=== PATIENT | male | born 1955 | race Caucasian/White ===

== ENCOUNTER 2017-06-29 14:53 | Emergency (ER) | payer OTHER ==
[~2017-06-29] VITALS: Ht 167.6 cm; Wt 75.0 kg
[~2017-06-29 14:53] MED LIST: ALBUAER19; CHLO0.1222 PO; CPR500HP PO; DICY10CA55 PO; DOCU100C31 PO; ERGO1CAP35 PO; MESA1.2T PO; OMEP40CA41 PO; OXGN; TOLT2TAB9 PO
[2017-06-29 14:56] VITALS: BP 133/84; PULSE 74; TEMP 36.6; O2SAT 97; Ht 167.6 cm; Wt 75.0 kg
[2017-06-29] MEDS ORDERED: OXYC1TAB3 PO (15:12)
[2017-06-29] MEDS ORDERED: OXYCODONE IR HOME PACK PO ONE (15:36)
[2017-06-29] MEDS ORDERED: CYAN100048 SQ (15:48)
[2017-06-29] MEDS ORDERED: ANTICRE6 PO (15:48)
[2017-06-29] MEDS ORDERED: IBUP-1451 PO (15:48)
[2017-06-29] MEDS ORDERED: VNTHFA/IN INH (15:48)
[2017-06-29] MEDS ORDERED: GABA-113 PO (15:48)
[2017-06-29] MEDS ORDERED: ERGO500037 PO (15:48)
--- NOTE | 2017-06-29 17:57 | EMERGENCY ROOM VISIT NOTE ---
History Report prepared by Dameon: Micheline Hauser Under the Supervision of: Dr. Sujit Lopes M.D. First contact with patient: 14:59 Chief Complaint: CARDIAC ASSESSMENT Stated Complaint: HEART PROBLEMS History of Present Illness The patient is a 62 year old male who presents to the Emergency Room with complaints of persistent right chest pain starting 2 weeks ago. The patient tripped and fell 2 weeks ago onto his right side. He has had right rib pain since then. He describes the pain as sharp. The pain worsens with deep breaths. He went to urgent care today and had an X-ray which showed a 6th rib fracture on the right side that is not displaced. His lungs were clear. He had an abnormal EKG there and was sent to the ED. He denies any other symptoms. Source of History: patient Onset: 2 weeks ago Position: chest (right) Quality: sharp Timing: other (persistent) Modifying Factors (Worsening): breathing Associated Symptoms: No fevers, No SOB Note: Pt denies any other symptoms. Review of Systems See HPI for pertinent positives & negatives. A total of 10 systems reviewed and were otherwise negative. Past Medical & Surgical Medical Problems: (1) Asthma, mild persistent (2) BPH (benign prostatic hyperplasia) (3) Crohn's disease (4) Neuropathy (5) Overactive bladder (6) SBO (small bowel obstruction) Surgical Problems: (1) History of inguinal hernia repair Family History No pertinent family history Social History Smoking Status: Never Smoker Alcohol Use: occasionally Drug Use: none Marital Status: single Occupation Status: employed Current/Historical Medications Scheduled Calcium Carbonate-Vitamin D W/ (Caltrate 600 Plus), 1 TAB PO BID Chlorhexidine Gluconate (Mouth (Peridex), 15 ML PO QAM Cyanocobalamin (Vitamin B-12), 1,000 MCG SQ MONTHLY Ergocalciferol (Vitamin D 99954 Unit), 50,000 UNIT PO WK Fluticasone Furoate-Vilanterol (Breo Ellipta), 1 PUFF INH QAM Gabapentin (Neurontin), 300 MG PO HS Lifitegrast (Xiidra), 1 DROP OPB QAM Mesalamine (Lialda), 4 TAB PO DAILY Montelukast Sod (Montelukast Sodium), 1 TAB PO HS Nortriptyline (Pamelor), 10 MG PO HS Potassium Gluconate (Potassium Gluconate), 1 TAB PO QAM Ranitidine Hcl (Zantac), 1 TAB PO QAM Tamsulosin Hcl (Flomax), 0.4 MG PO QAM [Antibiotic], Unknown Dose PO BLANK Scheduled PRN Albuterol Hfa (Ventolin Hfa), 2 PUFFS INH Q6H PRN for SOB/Wheezing Dicyclomine Hcl (Bentyl), 10 MG PO UD PRN for ABDOMINAL CRAMPING Ibuprofen Tab (Motrin), 800 MG PO Q8H PRN for Pain Oxycodone Ir (Roxicodone Ir), 5 MG PO Q4H PRN for Pain Allergies Coded Allergies: Codeine (Verified Allergy, Unknown, UNSURE REACTION - HAPPENED A CHILD , 06/04/16) Physical Exam Vital Signs Date Time Temp Pulse Resp B/P (MAP) Pulse Ox O2 Delivery O2 Flow Rate FiO2 06/29/17 14:56 36.6 74 20 133/84 97 Room Air Physical Exam Constitutional: Vital signs reviewed. Eyes: Pupils are equal round reactive to light. Conjunctiva are noninjected. ENT: Pharynx is clear without erythema or exudate. Mucous membranes are moist. Neck supple without meningeal signs. Respiratory: Clear to auscultation bilaterally. Breath sounds are equal bilaterally. Cardiovascular: Regular rate and rhythm. No rubs or gallops. GI: Soft, nondistended and nontender. Bowel sounds are present. Musculoskeletal: No peripheral edema. No lower extremity tenderness. Right rib tenderness. No crepitus. Integumentary: No cyanosis. Neurological: The patient is awake and alert. No focal deficits. Psychiatric: Normal affect. Medical Decision & Procedures Medications Administered Medications (Trade) Dose Ordered Sig/Sendy Route Start Time Stop Time Status Last Admin Dose Admin Oxycodone HCl (Roxicodone Immediate Rel 5MG Home Pack) 1 homepack STK-MED ONCE PO 06/29/17 15:36 06/29/17 15:37 DC 06/29/17 15:36 1 HOMEPACK ECG Indication: chest pain Rate (beats per minute): 81 Rhythm: sinus rhythm Findings: RBBB, no ectopy Comparison ECG Date: 08-Mar-2016 Change: no significant change ED Course 1502: The patient was evaluated in room B9. A complete history and physical exam was performed. I discussed tonight's findings with him. He verbalized agreement of the treatment plan. He was discharged home. Medical Decision This is a 62-year-old male sent here from an urgent care center because of an abnormal EKG. I did perform a limited focused review of portions of the patient 's old chart on the electronic medical record. The patient received Percocet without adverse reaction in 2013. I did evaluate the patient as noted above. He is presenting with sharp left- sided right rib pain after falling. He had an x-ray at the urgent care center which showed a 6 rib fracture. The patient has no other symptoms. Certainly has no symptoms to suggest acute coronary syndrome. EKG was performed at the urgent care center which I did review as described above. It is not completely normal but it is unchanged from his prior EKG when reviewed on the EMR. I did not feel any further evaluation was indicated at this time. The patient was in agreement. He was given a prescription for oxycodone which she has had in the past without allergic reaction. He was discharged with a is incentive spirometer and will follow up with his doctor. [place] Drug Monitoring Program Search Results: patient reviewed within database Drug Monitoring Findings: No matching patients. Medication Reconcilliation Current Medication List: was personally reviewed by me Blood Pressure Screening Patient's blood pressure: Elevated blood pressure Blood pressure disposition: Referred to PCP Impression Primary Impression: Right rib fracture Scribe Attestation The scribe's documentation has been prepared under my direct and personally reviewed by me in its entirety. I confirm that the note above accurately reflects all work, treatment, procedures, and medical decision making performed by me. Departure Information Dispostion Home / Self-Care Prescriptions Oxycodone Ir (Roxicodone Ir) 5 Mg Tab 5 MG PO Q4H Y for Pain, #20 TAB Prov: Sujit Lopes M.D. 06/29/17 Referrals No Doctor, Assigned (PCP) Forms IMPORTANT VISIT INFORMATION Patient Instructions Papito Andrew, My [facility] Additional Instructions You have been examined and treated today on an emergency basis only. This is not a substitute for, or an effort to provide, complete comprehensive medical care. It is impossible to recognize and treat all injuries or illnesses in a single emergency department visit. It is therefore important that you follow up closely with your physician. Call as soon as possible for an appointment. Return for worsening symptoms or if you develop fever, vomiting, abdominal pain , sudden difficulty breathing or any other concerning symptoms. Problem Qualifiers Primary Impression: Right rib fracture Encounter type: initial encounter Rib fracture type: single rib Fracture type: closed Qualified Codes: S22.31XA - Fracture of one rib, right side, initial encounter for closed fracture
[2017-06-29] MEDS ORDERED: NORT10CA2 PO (18:43)
[2017-06-29] MEDS ORDERED: POTA1TAB PO (18:43)
[2017-06-29] MEDS ORDERED: TAMS0.4C38 PO (20:24)
[2017-06-29] MEDS ORDERED: CALCTAB7 PO (20:26)
[2017-06-29] MEDS ORDERED: LIFI5DRO OPB (21:54)
[2017-06-29] MEDS ORDERED: RANI300T PO (21:54)
[2017-06-29] MEDS ORDERED: FLUT1INH INH (21:54)
[2017-06-29] MEDS ORDERED: SNG10 PO (21:54)
== END 2017-06-29 15:46 | disposition home or self-care (01) ==
LOC: C.EDB 14:54
DX: S22.31XA Fracture of one rib, right side, initial encounter for closed fracture (principal); W01.0XXA Fall on same level from slipping, tripping and stumbling without subsequent striking against object, initial encounter; J45.909 Unspecified asthma, uncomplicated; N40.0 Benign prostatic hyperplasia without lower urinary tract symptoms; K50.90 Crohn's disease, unspecified, without complications; G62.9 Polyneuropathy, unspecified; N32.81 Overactive bladder; I45.10 Unspecified right bundle-branch block

== ENCOUNTER 2017-10-01 18:18 | Emergency (ER) | payer OTHER ==
[~2017-10-01] VITALS: Ht 167.6 cm; Wt 82.4 kg
[~2017-10-01 18:18] MED LIST changes: -ALBUAER19; +ANTICRE6 PO; +CALCTAB7 PO; -CPR500HP PO; +CYAN100048 SQ; -DOCU100C31 PO; -ERGO1CAP35 PO; +ERGO500037 PO; +FLUT1INH INH; +GABA-113 PO; +IBUP-1451 PO; +LIFI5DRO OPB; +NORT10CA2 PO; -OMEP40CA41 PO; -OXGN; +OXYC1TAB3 PO; +POTA1TAB PO; +RANI300T PO; +SNG10 PO; +TAMS0.4C38 PO; -TOLT2TAB9 PO; +VNTHFA/IN INH
--- NOTE | 2017-10-01 18:29 | DIAGNOSTIC IMAGING REPORT ---
HEAD WITHOUT CONTRAST (CT) CLINICAL HISTORY: 62 years-old Male with AMS, brain tumor by report. Acute altered mental status TECHNIQUE: Multiple axial CT images of the head were obtained without contrast. A dose lowering technique was utilized adhering to the principles of ALARA. CT DOSE: 614.27 mGy.cm COMPARISON: None. FINDINGS: No acute intracranial hemorrhage, midline shift, intracranial mass, hydrocephalus, territorial ischemia or abnormal extra-axial collection. The calvarium is intact. The right maxillary sinus is nearly completely opacified. Hypoplasia of the right frontal sinus. Mild polypoid mucosal thickening of the left maxillary sinus. Right yaquelin bullosa. Mild ethmoid sinus disease. Soft tissues and orbits are unremarkable. IMPRESSION: 1. No acute intracranial abnormality. 2. Paranasal sinus disease as above. The above report was generated using voice recognition software. It may contain grammatical, syntax or spelling errors. Electronically signed by: José Miguel Carlisle M.D. 10/01/2017 6:27 PM Dictated Date/Time: 10/01/2017 6:25 PM
[2017-10-01 18:34] VITALS: TEMP 36.7; Ht 167.6 cm; Wt 82.4 kg
--- NOTE | 2017-10-01 18:37 | EMERGENCY ROOM VISIT NOTE ---
History Report prepared by Dameon: Sen Mccollum Under the Supervision of: Dr. Lorena Martinez M.D. First contact with patient: 18:14 Stated Complaint: NEURO SX History of Present Illness The patient is a 62 year old male who presents to the Emergency Room with complaints of constant weakness beginning a week ago. Patient was apparently at work today when his symptoms suddenly worsened. The patient states he was evaluated by Dr. Muñoz today and had a bilateral lumbar facet joint radiofrequency ablation from L5-S1 performed. Patient's coworker relates that he was recently diagnosed with a "brain tumor." He denies any recent fevers or vomiting. HPI is limited secondary to the patient's poor cooperation. Source of History: patient History Limited By: poor cooperation Review of Systems ROS is limited secondary to the patient's poor cooperation. Past Medical & Surgical Medical Problems: (1) Asthma, mild persistent (2) BPH (benign prostatic hyperplasia) (3) Crohn's disease (4) Neuropathy (5) Overactive bladder (6) SBO (small bowel obstruction) Surgical Problems: (1) History of inguinal hernia repair Family History No pertinent family history Social History Smoking Status: Never Smoker Alcohol Use: occasionally Drug Use: none Marital Status: single Occupation Status: employed Current/Historical Medications Scheduled Amoxicillin & Pot Clavulanate (Augmentin 500MG), 1 TAB PO BID Calcium Carbonate-Vitamin D W/ (Caltrate 600 Plus), 1 TAB PO BID Chlorhexidine Gluconate (Mouth (Peridex), 15 ML PO QID Docusate Sodium (Docusate Sodium), 100 MG PO BID Ergocalciferol (Vitamin D 16431 Unit), 50,000 UNIT PO WK Fluticasone Furoate-Vilanterol (Breo Ellipta), 1 PUFF INH QAM Gabapentin (Neurontin), 300 MG PO BID Lifitegrast (Xiidra), 1 DROP OPB QAM Mesalamine (Lialda), 4 TAB PO DAILY Montelukast Sod (Montelukast Sodium), 10 MG PO HS Nortriptyline (Pamelor), 20 MG PO HS Omeprazole (Prilosec), 40 MG PO BID Potassium (Potassium), 99 MG PO DAILY Ranitidine Hcl (Zantac), 300 MG PO HS Tamsulosin Hcl (Flomax), 0.4 MG PO QAM Scheduled PRN Albuterol Hfa (Ventolin Hfa), 2 PUFFS INH Q6H PRN for SOB/Wheezing Dicyclomine Hcl (Bentyl), 10 MG PO TID PRN for ABDOMINAL CRAMPING Ibuprofen Tab (Motrin), 800 MG PO Q8H PRN for Pain Meclizine Hcl (Meclizine Hcl), 25 MG PO TID PRN for Dizziness or Vertigo Allergies Coded Allergies: Codeine (Verified Allergy, Unknown, UNSURE REACTION - HAPPENED A CHILD , 06/04/16) Physical Exam Vital Signs Date Time Temp Pulse Resp B/P (MAP) Pulse Ox O2 Delivery O2 Flow Rate FiO2 10/01/17 23:47 55 16 131/87 96 10/01/17 22:47 51 16 127/77 94 Room Air 10/01/17 20:30 54 22 142/88 96 Room Air 10/01/17 18:34 36.7 61 18 161/109 95 Room Air 10/01/17 18:34 60 Physical Exam Vital signs reviewed. General: Well-appearing 62 year old male, in no significant distress. Patient seemed to be voluntarily weak diffusely. HEENT: No scleral icterus, PERRLA, neck supple. Atraumatic. States he is unable to open his eyes. Cardiovascular: Regular rate and rhythm, no extra sounds. Pulmonary: Clear to auscultation bilaterally, normal work of breathing. Abdomen: Soft, nontender, nondistended, positive bowel sounds. Musculoskeletal: Atraumatic, no peripheral edema. Neurologic: No focal neurological deficit. Diffuse weakness, seems to be voluntary in nature. Limited cooperation. No unilateral focus to exam. Equal strength in all four extremities. Cranial nerves 2 through 12 intact. Skin: Warm, dry, no rash Medical Decision & Procedures ER Provider Diagnostic Interpretation: Review of EMR: Patient had an MRI of the brain on 09/17 results are as followed: IMPRESSION: 1. No imaging findings to suggest an acute intracranial abnormality on pre and post-contrast MR imaging of the brain. 2. Prominent pituitary gland measures 12.5 mm (SI), which is beyond the upper limits of normal. Recommend dedicated MRI of the sells without and with contrast , and appropriate endocrinologic aboratory workup. 3. Near complete opacification of the right maxillary sinus, with the presence of likely fluid/frothy secretions as well as mucosal thickening. Thickening of at lease a portion of the serrato of the right maxillary. The imaging findings are concerning for acute on chronic sinusitis. Clinical correlation is recommended. 4. Global cerebral volume less and mild to moderate burden of nonspecific cerebral white matter signal abnormality which most commonly reflects sequelae of chronic small vessel ischemic disease. Radiology results as stated below per my review and radiologist interpretation: HEAD WITHOUT CONTRAST (CT) CLINICAL HISTORY: 62 years-old Male with AMS, brain tumor by report. Acute altered mental status TECHNIQUE: Multiple axial CT images of the head were obtained without contrast. A dose lowering technique was utilized adhering to the principles of ALARA. CT DOSE: 614.27 mGy.cm COMPARISON: None. FINDINGS: No acute intracranial hemorrhage, midline shift, intracranial mass, hydrocephalus, territorial ischemia or abnormal extra-axial collection. The calvarium is intact. The right maxillary sinus is nearly completely opacified. Hypoplasia of the right frontal sinus. Mild polypoid mucosal thickening of the left maxillary sinus. Right yaquelin bullosa. Mild ethmoid sinus disease. Soft tissues and orbits are unremarkable. IMPRESSION: 1. No acute intracranial abnormality. 2. Paranasal sinus disease as above. The above report was generated using voice recognition software. It may contain grammatical, syntax or spelling errors. Electronically signed by: José Miguel Carlisle M.D. 10/01/2017 6:27 PM Dictated Date/Time: 10/01/2017 6:25 PM CHEST ONE VIEW PORTABLE HISTORY: 62 years-old Male AMS acute altered mental status COMPARISON: Chest radiograph 03/08/2016 TECHNIQUE: Portable AP view of the chest FINDINGS: Patient is rotated to the left. Cardiac silhouette is mildly enlarged. Subsegmental bibasilar opacities suggest atelectasis. No pneumothorax, pleural effusion or overt pulmonary edema. Bones of the chest appear grossly intact. IMPRESSION: Subsegmental bibasilar atelectasis without acute process. The above report was generated using voice recognition software. It may contain grammatical, syntax or spelling errors. Electronically signed by: José Miguel Carlisle M.D. 10/01/2017 6:47 PM Dictated Date/Time: 10/01/2017 6:46 PM MRI OF THE BRAIN WITHOUT AND WITH IV CONTRAST SEIZURE PROTOCOL CLINICAL HISTORY: Stroke symptoms. Possible seizure. Dizziness, speech difficulties. Visual disturbances. COMPARISON STUDY: Head CT October 01, 2017 TECHNIQUE: Utilizing a 1.5 Mira magnet and dedicated coil, multiplanar, multiecho imaging of the brain was performed pre and postcontrast administration. IV administration of 8 mL of Gadavist contrast was uneventful. Thin cut coronal T2 imaging was performed according to seizure protocol. FINDINGS: There are no foci of restricted diffusion. No acute intracranial hemorrhage, midline shift or mass effect is present. Ventricular system is normal. The basilar cisterns are patent. There are no extra-axial collections. Flow-voids for the major intracranial vessels are present. The pituitary gland is enlarged, measuring 1.2 cm in craniocaudal dimension. There is mass effect upon the chiasm. The pituitary is suboptimally assessed on this nondedicated exam. No additional intracranial masses are present. Terminal signal is maintained. Right maxillary sinus is nearly completely opacified. There is mild polypoid mucosal thickening of the left maxillary sinus. Orbits are unremarkable. There is no MRI evidence for mesial temporal sclerosis. White matter T2 hyperintense foci suggest mild small vessel disease. IMPRESSION: 1. No acute intracranial findings. 2. Enlarged pituitary, measuring 1.2 cm in craniocaudal dimension. Mild mass effect upon the chiasm. The pituitary is suboptimally assessed on this nondedicated exam. The findings could be correlated with laboratory assays as well as dedicated pituitary MRI as indicated. 3. Mild small vessel disease. 4. Paranasal sinus disease, as described above. Electronically signed by: Bryan Camargo M.D. 10/01/2017 11:00 PM Dictated Date/Time: 10/01/2017 10:49 PM Laboratory Results 10/01/17 18:10 Red Blood Count 5.30, Mean Corpuscular Volume 87.0, Mean Corpuscular Hemoglobin 29.2, Mean Corpuscular Hemoglobin Concent 33.6, Mean Platelet Volume 10.9, Neutrophils (%) (Auto) 54.7, Lymphocytes (%) (Auto) 36.5, Monocytes (%) (Auto) 6.5, Eosinophils (%) (Auto) 1.7, Basophils (%) (Auto) 0.3, Neutrophils # (Auto) 3.20, Lymphocytes # (Auto) 2.14, Monocytes # (Auto) 0.38, Eosinophils # (Auto) 0.10, Basophils # (Auto) 0.02 10/01/17 18:10 Test 10/01/17 18:10 10/01/17 18:31 10/01/17 18:33 10/01/17 20:12 White Blood Count 5.86 K/uL (4.8-10.8) Red Blood Count 5.30 M/uL (4.7-6.1) Hemoglobin 15.5 g/dL (14.0-18.0) Hematocrit 46.1 % (42-52) Mean Corpuscular Volume 87.0 fL (80-100) Mean Corpuscular Hemoglobin 29.2 pg (25-34) Mean Corpuscular Hemoglobin Concent 33.6 g/dl (32-36) Platelet Count 240 K/uL (130-400) Mean Platelet Volume 10.9 fL (7.4-10.4) Neutrophils (%) (Auto) 54.7 % Lymphocytes (%) (Auto) 36.5 % Monocytes (%) (Auto) 6.5 % Eosinophils (%) (Auto) 1.7 % Basophils (%) (Auto) 0.3 % Neutrophils # (Auto) 3.20 K/uL (1.4-6.5) Lymphocytes # (Auto) 2.14 K/uL (1.2-3.4) Monocytes # (Auto) 0.38 K/uL (0.11-0.59) Eosinophils # (Auto) 0.10 K/uL (0-0.5) Basophils # (Auto) 0.02 K/uL (0-0.2) RDW Standard Deviation 41.1 fL (36.4-46.3) RDW Coefficient of Variation 12.9 % (11.5-14.5) Immature Granulocyte % (Auto) 0.3 % Immature Granulocyte # (Auto) 0.02 K/uL (0.00-0.02) Prothrombin Time 10.0 SECONDS (9.0-12.0) Prothromb Time International Ratio 1.0 (0.9-1.1) Activated Partial Thromboplast Time 28.3 SECONDS (21.0-31.0) Partial Thromboplastin Ratio 1.1 Anion Gap 6.0 mmol/L (3-11) Est Creatinine Clear Calc Drug Dose 74.4 ml/min Estimated GFR () 88.4 Estimated GFR (Non- 76.2 BUN/Creatinine Ratio 13.9 (10-20) Calcium Level 8.9 mg/dl (8.5-10.1) Magnesium Level 2.2 mg/dl (1.8-2.4) Total Bilirubin 0.2 mg/dl (0.2-1) Direct Bilirubin < 0.1 mg/dl (0-0.2) Aspartate Amino Transf (AST/SGOT) 20 U/L (15-37) Alanine Aminotransferase (ALT/SGPT) 29 U/L (12-78) Alkaline Phosphatase 111 U/L (45-117) Total Protein 7.7 gm/dl (6.4-8.2) Albumin 3.9 gm/dl (3.4-5.0) Bedside Glucose 85 mg/dl (70-99) Urine Opiates Screen NEG (NEG) Urine Methadone, Qualitative NEG (NEG) Urine Barbiturates NEG (NEG) Urine Phencyclidine (PCP) Level NEG (NEG) Ur Amphetamine/Methamphetamine NEG (NEG) MDMA (Ecstasy) Screen NEG (NEG) Urine Benzodiazepines Screen NEG (NEG) Urine Cocaine Metabolite NEG (NEG) Urine Marijuana (THC) NEG (NEG) Urine Color YELLOW Urine Appearance CLEAR (CLEAR) Urine pH 5.0 (4.5-7.5) Urine Specific [place] 1.019 (1.000-1.030) Urine Protein NEG (NEG) Urine Glucose (UA) NEG (NEG) Urine Ketones NEG (NEG) Urine Occult Blood NEG (NEG) Urine Nitrite NEG (NEG) Urine Bilirubin NEG (NEG) Urine Urobilinogen NEG (NEG) Urine Leukocyte Esterase NEG (NEG) Laboratory results per my review. ECG Per My Interpretation Indication: weakness Rate (beats per minute): 59 Rhythm: sinus bradycardia Findings: RBBB, no acute ischemic change, left axis deviation, no ectopy ED Course 1815: Past medical records reviewed. The patient was evaluated in room B01. A complete history and physical examination was performed. 1850: The patient was transported from B01 to B10 because he was stable. 1941: I reevaluated the patient. He is having an episode where his forehead is twitching, he is not able to open his eyes, and has spasms of the limbs. He is immediately responsive to the nurses. 2302: I reevaluated the patient. I informed him off all exam results to this point. I informed him we are still waiting for his MRI report. He states he needs to urinate, but he is too weak to get out of bed. 2333: Upon reevaluation, the patient appeared to have improvement of his symptoms. I discussed findings with him. He verbalized agreement of the treatment plan. The patient was discharged home. Medical Decision Differential diagnosis: Etiologies such as metabolic, infection, hypo/hyperglycemia, electrolyte abnormalities, cardiac sources, intracerebral event, toxicologic, neurologic, as well as others were entertained. This patient was evaluated and appeared to be in no significant distress. CT scan of the head was performed upon arrival to the emergency department and is normal. There is evidence of sinusitis. IV access was obtained. EKG is fairly unrevealing. Laboratory work reveals no significant abnormalities. U tox is negative. The patient's symptoms do not seem to be consistent with encephalopathy or an acute CVA. Patient does not seem to be seizing. He does seem to be weak at will. His boss has been in his room, at his bedside. The patient requested a Stoner catheter as he did not feel that he could urinate or ambulate to the bathroom. A straight cath was performed in order to obtain a bit above urine. Patient requested a Stoner catheter be placed however after the MRI brain combo was negative for acute intracranial findings, the patient was able to ambulate to the restroom with assistance. The patient did have a recent MRI of the brain as an outpatient and was found to have an enlarged pituitary gland. A dedicated MRI of the pituitary gland is scheduled within the next week. I do not find any medical cause for the patient's symptoms. I suspect there was significant anxiety surrounding the enlarged pituitary finding as an outpatient. I do not feel the patient warrants inpatient management at this time as this is likely behavioral. He will be discharged to the care of his family and return to the ER for worsening of symptoms or any medical concerns. Patient was advised not to drive until he is cleared by his PCP or neurologist. Medication Reconcilliation Current Medication List: was personally reviewed by me Blood Pressure Screening Patient's blood pressure: Normal blood pressure Blood pressure disposition: Did not require urgent referral Impression Primary Impression: Altered mental state Scribe Attestation The scribe's documentation has been prepared under my direction and personally reviewed by me in its entirety. I confirm that the note above accurately reflects all work, treatment, procedures, and medical decision making performed by me. Departure Information Dispostion Home / Self-Care Referrals Madan Ratliff M.D.(TIM) (PCP) Forms HOME CARE DOCUMENTATION FORM, IMPORTANT VISIT INFORMATION, WORK / SCHOOL INSTRUCTIONS Patient Instructions My [facility] Additional Instructions Diagnosis: Altered mental state Drink plenty of clear fluids. Minimize any medications that may cause sedation. Avoid any alcohol, illicit substances. Do not drive until you are cleared by neurology or your primary care physician. Return to the emergency department for worsening of symptoms or any medical concerns per
[2017-10-01 18:43] LABS: BASO % 0.3 %; BASO ABS # 0.02 K/uL (0-0.2); EOS % 1.7 %; HEMATOCRIT 46.1 % (42-52); HEMOGLOBIN 15.5 g/dL (14.0-18.0); IG# 0.02 K/uL (0.00-0.02); LYMPH % 36.5 %; LYMPH ABS # 2.14 K/uL (1.2-3.4); MEAN CORPUSCULAR HEMOGLOBIN 29.2 pg (25-34); MEAN CORPUSCULAR HGB CONC 33.6 g/dl (32-36); MEAN PLATELET VOLUME 10.9 fL (7.4-10.4); MONO % 6.5 %; MONO ABS # 0.38 K/uL (0.11-0.59); NEUT % 54.7 %; PLATELET COUNT 240 K/uL (130-400); RED CELL DISTRIBUTION WIDTH CV 12.9 % (11.5-14.5); RED CELL DISTRIBUTION WIDTH SD 41.1 fL (36.4-46.3); WHITE BLOOD COUNT 5.86 K/uL (4.8-10.8)
--- NOTE | 2017-10-01 18:49 | DIAGNOSTIC IMAGING REPORT ---
CHEST ONE VIEW PORTABLE HISTORY: 62 years-old Male AMS acute altered mental status COMPARISON: Chest radiograph 03/08/2016 TECHNIQUE: Portable AP view of the chest FINDINGS: Patient is rotated to the left. Cardiac silhouette is mildly enlarged. Subsegmental bibasilar opacities suggest atelectasis. No pneumothorax, pleural effusion or overt pulmonary edema. Bones of the chest appear grossly intact. IMPRESSION: Subsegmental bibasilar atelectasis without acute process. The above report was generated using voice recognition software. It may contain grammatical, syntax or spelling errors. Electronically signed by: José Miguel Carlisle M.D. 10/01/2017 6:47 PM Dictated Date/Time: 10/01/2017 6:46 PM
[2017-10-01 18:56] LABS: PTT PATIENT 28.3 SECONDS (21.0-31.0)
[2017-10-01 19:00] LABS: ALBUMIN 3.9 gm/dl (3.4-5.0); ALT/SGPT 29 U/L (12-78); AST/SGOT 20 U/L (15-37); BLOOD UREA NITROGEN 15 mg/dl (7-18); CALCIUM 8.9 mg/dl (8.5-10.1); CARBON DIOXIDE 29 mmol/L (21-32); CREATININE 1.05 mg/dl (0.60-1.40); GLUCOSE 89 mg/dl (70-99); POTASSIUM 3.5 mmol/L (3.5-5.1); SODIUM 138 mmol/L (136-145)
[2017-10-01 19:03] LABS: ALKALINE PHOSPHATASE 111 U/L (45-117); TOTAL PROTEIN 7.7 gm/dl (6.4-8.2)
[2017-10-01] MEDS ORDERED: DOCU100C31 PO (20:54)
[2017-10-01] MEDS ORDERED: NORT10CA2 PO (20:59)
[2017-10-01] MEDS ORDERED: MECL1TAB42 PO (21:01)
[2017-10-01] MEDS ORDERED: OMEP40CA41 PO (21:03)
[2017-10-01] MEDS ORDERED: POTA99TA PO (21:05)
[2017-10-01] MEDS ORDERED: AMOX500T PO (21:07)
[2017-10-01] MEDS ORDERED: GADAVIST IV PRN (22:45)
--- NOTE | 2017-10-01 23:01 | DIAGNOSTIC IMAGING REPORT ---
MRI OF THE BRAIN WITHOUT AND WITH IV CONTRAST SEIZURE PROTOCOL CLINICAL HISTORY: Stroke symptoms. Possible seizure. Dizziness, speech difficulties. Visual disturbances. COMPARISON STUDY: Head CT October 01, 2017 TECHNIQUE: Utilizing a 1.5 Mira magnet and dedicated coil, multiplanar, multiecho imaging of the brain was performed pre and postcontrast administration. IV administration of 8 mL of Gadavist contrast was uneventful. Thin cut coronal T2 imaging was performed according to seizure protocol. FINDINGS: There are no foci of restricted diffusion. No acute intracranial hemorrhage, midline shift or mass effect is present. Ventricular system is normal. The basilar cisterns are patent. There are no extra-axial collections. Flow-voids for the major intracranial vessels are present. The pituitary gland is enlarged, measuring 1.2 cm in craniocaudal dimension. There is mass effect upon the chiasm. The pituitary is suboptimally assessed on this nondedicated exam. No additional intracranial masses are present. Terminal signal is maintained. Right maxillary sinus is nearly completely opacified. There is mild polypoid mucosal thickening of the left maxillary sinus. Orbits are unremarkable. There is no MRI evidence for mesial temporal sclerosis. White matter T2 hyperintense foci suggest mild small vessel disease. IMPRESSION: 1. No acute intracranial findings. 2. Enlarged pituitary, measuring 1.2 cm in craniocaudal dimension. Mild mass effect upon the chiasm. The pituitary is suboptimally assessed on this nondedicated exam. The findings could be correlated with laboratory assays as well as dedicated pituitary MRI as indicated. 3. Mild small vessel disease. 4. Paranasal sinus disease, as described above. Electronically signed by: Bryan Camargo M.D. 10/01/2017 11:00 PM Dictated Date/Time: 10/01/2017 10:49 PM
[2017-10-01 23:47] VITALS: BP 131/87; PULSE 55; O2SAT 96
== END 2017-10-01 23:47 | disposition home or self-care (01) ==
LOC: C.EDB 18:18 → EDBD 18:18 → C.EDB 23:47
DX: R41.82 Altered mental status, unspecified (principal); J45.909 Unspecified asthma, uncomplicated; K50.90 Crohn's disease, unspecified, without complications; G62.9 Polyneuropathy, unspecified; Z98.890 Other specified postprocedural states; Z79.899 Other long term (current) drug therapy; Z79.2 Long term (current) use of antibiotics; Z88.6 Allergy status to analgesic agent

== ENCOUNTER 2018-12-08 09:05 | Observation (INO) ==
--- NOTE | 2018-12-03 10:53 | Anesthesiology Consultation ---
Date of Service December 03, 2018 Assessment & Plan (1) Encounter for pre-operative examination: Chart Review Chart Review: Acceptable Risk for Surgery and Patient NOT seen in Pre Admission Testing History Surgery Operation Date: 12/08/18 10:25 Proposed Procedures p Laparoscopic Appendectomy Possible Open - Veronica Abraham MD Height/Weight Height: 5 ft 6 in Weight: 80.8 kg Allergies Allergy/AdvReac Type Severity Reaction Status Date / Time codeine Allergy Unknown UNSURE Verified 06/04/16 11:54 REACTION - HAPPENED A CHILD Medications Home Medications Medication Instructions Recorded Confirmed Last Taken albuterol sulfate 2 puff INHALATION DAILY PRN 03/29/18 03/29/18 Unknown [id number] 1 tab PO DAILY 03/29/18 03/29/18 Unknown chlorhexidine gluconate 15 ml TOPICAL TID 03/29/18 03/29/18 Unknown cyclosporine [Restasis] 1 drp OPHTHALMIC (EYE) Q12H 03/29/18 03/29/18 Unknown cyclosporine [Restasis] 1 drp OPHTHALMIC (EYE) Q12H 03/29/18 03/29/18 Unknown ergocalciferol (vitamin D2) 50,000 unit PO DAILY 03/29/18 03/29/18 Unknown [Vitamin D2] fluticasone furoate-vilanterol 1 inh INHALATION DAILY 03/29/18 03/29/18 Unknown [Breo Ellipta] gabapentin 300 mg PO HS 03/29/18 03/29/18 Unknown ibuprofen 200 mg PO QID PRN 03/29/18 03/29/18 Unknown mesalamine 1.5 g PO QAM 03/29/18 03/29/18 Unknown metoprolol succinate 25 mg PO DAILY 03/29/18 03/29/18 Unknown montelukast [Singulair] 10 mg PO PM 03/29/18 03/29/18 Unknown omeprazole 40 mg PO DAILY 03/29/18 03/29/18 Unknown potassium 95 mg PO DAILY 03/29/18 03/29/18 Unknown ranitidine HCl 300 mg PO DAILY 03/29/18 03/29/18 Unknown tamsulosin 0.4 mg PO DAILY 03/29/18 03/29/18 Unknown tolterodine 2 mg PO BID 03/29/18 03/29/18 Unknown Past Medical History Medical History Sleep apnea Noncompliant with CPAP Cardiac pacemaker in situ Medtronic, last check 10/22/18 SBO (small bowel obstruction) (Resolved) Asthma, mild persistent (Chronic) Overactive bladder (Chronic) BPH (benign prostatic hyperplasia) (Chronic) Neuropathy (Chronic) Crohn's disease (Chronic) Tachy-dell syndrome s/p PPM Past Surgical History Surgical History H/O esophagogastroduodenoscopy H/O endoscopic sinus surgery H/O colonoscopy 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 History of inguinal hernia repair (Resolved) Social History Smoking Status: Never smoker Testing Laboratory Results 12/02/18 WBC: 5.79 H/H: 14.1/42.4 PLATELETS: 268 SODIUM: 142 POTASSIUM: 4.0 CHLORIDE: 101 CO2: 27 BUN: 15 CREATININE: 1.0 GLUCOSE: 89 Electrocardiogram Date: 01/04/18 Findings: + NSR @ (61) Possible left atrial enlargement. Right bundle branch block. Left ventricular hypertrophy. Lateral infarct, age undetermined. Compared with EKG of 10/01/2017, lateral infarct is now present. Chest X-Ray Date: 04/08/18 Findings: + NAD Echocardiogram Date: 12/02/17 EF: 55-59% Left atrium is mildly enlarged. Grade 2 diastolic dysfunction. Borderline posterior mitral leaflet prolapse. Mild mitral regurgitation and tricuspid regurgitation are present. Aortic root is borderline enlarged. Stress Test Date: 01/08/18 Type: nuclear Resting EF: 75% Gated SPECT imaging reveals normal myocardial thickening and wall motion. Lexiscan nuclear cardiac stress test negative for ischemia. Other Testing Pacemaker check 10/22/18 Medtronic Implant date: 01/14/2018 Pacemaker mode: AAIR<=> DDDR Pacing burden: 89.9% atrial, 0% RV Summary: Normal dual-chamber pacemaker function.
[~2018-12-08 09:05] MED LIST changes: -ANTICRE6 PO; -CALCTAB7 PO; -CHLO0.1222 PO; -CYAN100048 SQ; -DICY10CA55 PO; -ERGO500037 PO; -FLUT1INH INH; -GABA-113 PO; -IBUP-1451 PO; -LIFI5DRO OPB; +LR 15ML/HR IV SCH; -MESA1.2T PO; +MIDAZOLAM HCL 1 MG/ML 2ML VIAL ONE; -NORT10CA2 PO; -OXYC1TAB3 PO; -POTA1TAB PO; +PROPOFOL IV EMULSION 10 MG/ML 20 ML VIAL IV ONE; -RANI300T PO; +ROCURONIUM BROMIDE 10 MG/ML 5 ML VIAL ONE; -SNG10 PO; -TAMS0.4C38 PO; -VNTHFA/IN INH; +cefOXitin 2,000 MG in DEXTROSE 5% 50 ML IV SCH; +fentaNYL citrate 100 MCG/2 ML VIAL ONE
[2018-12-08] MEDS ORDERED: cefOXitin 2,000 MG/60 ML BAG IV STA (09:40)
--- NOTE | 2018-12-08 09:40 | History & Physical Bridge Note ---
Date of Service December 08, 2018 History & Physical Bridge Note I have examined the patient, reviewed the History & Physical and in the interval since the performance of the History & Physical I have noted the following changes of clinical significance: no changes noted
[2018-12-08] MEDS ORDERED: BUPIVACAINE 0.5 % 5 MG/1 ML MPF 30ML VIAL ONE (09:51)
[2018-12-08] MEDS ORDERED: BACITRACIN OINT 15 GM TUBE ONE (09:51)
[2018-12-08] MEDS ORDERED: LIDOCAINE HCL 1% 20 ML VIAL ONE (09:51)
[2018-12-08] MEDS ORDERED: ONDANSETRON INJ 2 MG/ML 2 ML VIAL ONE (10:44)
[2018-12-08] MEDS ORDERED: DEXAMETHASONE SOD INJ 4 MG/ML VIAL ONE (10:44)
[2018-12-08] MEDS ORDERED: fentaNYL citrate 100 MCG/2 ML VIAL IV PRN (10:54)
[2018-12-08] MEDS ORDERED: ONDANSETRON INJ 2 MG/ML 2 ML VIAL IV PRN ×2 (10:54→11:24)
[2018-12-08] MEDS ORDERED: NEOSTIGMINE METHYLSULFATE 5 MG/5 ML SYR ONE (10:54)
[2018-12-08] MEDS ORDERED: ATROPINE SULFATE 0.1 MG/ML 10ML SYR IV PRN (10:54)
[2018-12-08] MEDS ORDERED: ePHEDrine sulfate 50 MG/ML AMP IV PRN (10:54)
[2018-12-08] MEDS ORDERED: GLYCOPYRROLATE 0.2 MG/ML VIAL ONE (10:55)
[2018-12-08] MEDS ORDERED: fentaNYL citrate 100 MCG/2 ML VIAL ONE (11:01)
--- NOTE | 2018-12-08 11:14 | Post Operative Brief Note ---
Immediate Post Op Note v1 Date of Surgery December 08, 2018 Pre & Post Diagnosis Operation Date: 12/08/18 10:45 Pre-Op Diagnosis: chronic Appendicitis Post-Op Diagnosis: chronic Appendicitis Procedure Operation Date: 12/08/18 10:45 Actual Procedures p Laparoscopic Appendectomy(Not Applicable) - Veronica Abraham MD Surgeon Veronica Abraham MD American Board Certified Orthotist ELO Estrada Estimated Blood Loss 10 Findings Consistent with Post-Op Diagnosis chronic appendicitis Fluids 600ml Specimens appendix Drains Stoner Catheter Anesthesia Type General Complications none Disposition Accompanied Patient To Recovery: Yes Disposition: Recovery Room Overlapping Procedure I was immediately available: during the entire case.
--- NOTE | 2018-12-08 12:11 | Anesthesiology Progress Note ---
Date of Service December 08, 2018 Anesthesia Post Procedure Vital Signs Vital Signs: Temp Pulse Pulse Resp BP Pulse Ox 12/08/18 12:05 36.9 C 60 14 121/82 95 12/08/18 11:55 60 16 132/86 98 12/08/18 11:45 60 16 129/92 98 12/08/18 11:35 36.7 C 62 16 131/88 99 12/08/18 09:49 36.9 C 62 22 114/71 96 Transfer of Care Handoff Completed per policy Notes Mental Status: alert / awake / arousable and participated in evaluation Patient Amnestic to Procedure: Yes Nausea / Vomiting: adequately controlled Pain: adequately controlled Airway Patency, RR, SpO2: stable & adequate BP & HR: stable & adequate Hydration State: stable & adequate Anesthetic Complications: no major complications apparent and Pt Satisfied with anesthetic care
[2018-12-08] MEDS ORDERED: MoRPHine SULFATE 2 MG/ML CARP IV PRN ×2 (12:34)
[2018-12-08] MEDS ORDERED: ACETAMINOPHEN 325 MG TAB PO PRN (12:34)
[2018-12-08] MEDS ORDERED: MoRPHine SULFATE 4 MG/ML 1 ML CARP\\VIAL IV PRN (12:34)
[2018-12-08] MEDS ORDERED: OXYCODONE/ACETAMINOPHEN 5mg/325mg TAB PO PRN (12:34)
[2018-12-08] MEDS ORDERED: ALBUTEROL HFA 8 GM INHALER INH PRN (12:34)
--- NOTE | 2018-12-08 12:39 | Operative Report ---
DATE OF OPERATION: 12/08/2018 PREOPERATIVE DIAGNOSIS: Chronic appendicitis. POSTOPERATIVE DIAGNOSIS: Chronic appendicitis. OPERATIVE PROCEDURE: Laparoscopic appendectomy. SURGEON: Veronica Abraham MD. ANESTHESIA: General. ESTIMATED BLOOD LOSS: About 10 mL. FINDINGS: Chronic appendicitis. COMPLICATIONS: None. INDICATIONS FOR THE PROCEDURE: This is a 63-year-old gentleman who presented with chronic appendicitis. The patient is required to do laparoscopic appendectomy, possible open. I did talk to the patient about the benefit, risk, and alternate procedure. I indicated the risks may include but not limited to such as bleeding, infection, injury to the bowel, abscess, bowel obstruction, myocardial infarction, DVT, stroke, and even . The patient understands. He signed informed consent and I answered all questions. DETAILS OF PROCEDURE: We brought the patient to the OR, put the patient in supine position. The patient received SCD on bilateral legs to prevent DVT. Also, the patient received 2 g of cefoxitin IV for prophylactic antibiotic. The patient received general anesthesia without difficulty. Also, the patient received a Stoner catheter insertion. The abdomen was prepped and draped in routine sterile fashion. After a timeout, I injected local anesthesia by using 1% lidocaine mixed with 0.5% Marcaine just above the umbilicus. Then I made a small incision just above the umbilicus, opened fascia and opened peritoneum. Under direct vision, put a Liseth trocar in, connected to CO2 to create pneumoperitoneum with flow rate at 6 liter per minute, pressure not more than 14 mmHg. Once we got a nice pneumoperitoneum, we put the camera in, looked around the abdomen showing normal finding on the small bowel and large bowel. Appendix is enlarged and shows chronic appendicitis. Once we confirmed the diagnosis, I put another two 5 mm trocars on the left lower quadrant area. Then, we put a grasper to hold the appendix up and used Harmonic to take down the appendiceal, rechecked, no active bleeding. Then, I used a 45 mm Endo-ISA staple transection on the base of the appendix, rechecked, the staple line intact, no active bleeding from the staple line. Then, we removed the appendix through the catch bag. Then, we reinserted a Liseth trocar in, connected to CO2 to create pneumoperitoneum again, looked around the abdomen, the staple line intact, no active bleeding, no bowel injury. Then, we removed all trocar under direct vision, no active bleeding from the trocar sites. Pneumoperitoneum was released. I closed the umbilical incision fascial layer by using #1 Vicryl [id number] x2, closed subcutaneous layer by using 2-0 Vicryl interruptedly, closed skin by using 4-0 Vicryl continuous running, closed another two 5 mm trocar sites skin only by using 4-0 Vicryl. We put the dressing on. We removed the Stoner catheter. The patient tolerated the procedure well. The patient was transferred to recovery room in stable condition. The specimen was sent to Pathology. I attest to the content of the Intraoperative Record and any orders documented therein. Any exception s are noted below.
[2018-12-08] MEDS: LACTATED RINGER'S 1,000 ML IV SCH (13:22)
[2018-12-08] MEDS: OXYCODONE/ACETAMINOPHEN 5mg/325mg TAB PO PRN (15:27)
[2018-12-08] MEDS: BREO ELLIPTA ~ ORDER AWAITING ACTION SCH ×2 (16:27→23:14)
[2018-12-08] MEDS ORDERED: MONTELUKAST SODIUM 10 MG TABLET PO SCH (21:00)
[2018-12-08] MEDS: CHLORHEXIDINE GLUCONATE 0.12% 480 ML MT SCH (21:33)
[2018-12-08] MEDS: TOLTERODINE TARTRATE 2 MG TAB PO SCH (21:33)
[2018-12-08] MEDS ORDERED: LIDOCAINE 2% JELLY 5 ML TUBE EXT ONE (21:49)
[2018-12-08] MEDS ORDERED: LIDOCAINE 2% JELLY 5 ML TUBE ONE (21:52)
[2018-12-09] MEDS: LACTATED RINGER'S 1,000 ML IV SCH ×2 (00:42→13:26)
[2018-12-09] MEDS: OXYCODONE/ACETAMINOPHEN 5mg/325mg TAB PO PRN ×2 (00:42→08:16)
--- NOTE | 2018-12-09 06:44 | Surgery Progress Note ---
Date of Service F/U S/P laparoscopic appendectomy, pt had one catheter( Stoner)insertion last night due to difficulty urinating, pt has not urinating this morning, pt had a difficulty urinating in the past, pt denies abdominal pain, no nausea, no vomiting, December 09, 2018 Assessment & Plan (1) Chronic appendicitis: S/P laparosocpic appendectomy. POD 1 difficulty urinating, Plan, consult urologist for further Dx and treatment, pt agrees with the plan, will F/U Physical Exam Constitutional: WD/WN, vitals as above well developed and well nourished Neck: trachea midline, no thyromegaly Respiratory: normal respiratory effort, lungs clear to auscultation normal respiratory effort Cardiovascular: RRR, no murmur, no edema Rate/Rhythm: regular rate and regular rhythm Heart Sounds: normal S1 and normal S2 Gastrointestinal (Abdomen): normal bowel sounds, soft, nontender, no hepatosplenomegaly Neurologic: patellar DTR's 2+ bilat, sensation intact Psychiatric: A+Ox3, euthymic affect Orientation: alert and oriented x 3 Results & Data Vital Signs (Past 12 Hours) Vital Signs Temp Pulse Resp BP Pulse Ox 12/09/18 03:48 36.4 C L 60 18 116/73 94 12/08/18 23:00 36.6 C 61 18 107/65 94
[2018-12-09 07:03] LABS: Basophils # (auto) 0.01 K/uL (0-0.2); Basophils % (auto) 0.1 %; Eosinophils # (auto) 0.01 K/uL (0-0.5); Eosinophils % (auto) 0.1 %; Hematocrit (blood only) 44.2 % (42-52); Hemoglobin 14.1 g/dL (14.0-18.0); Immature Granulocytes # (auto) 0.01 K/uL (0.00-0.02); Immature Granulocytes % (auto) 0.1 %; Lymphocytes % (auto) 12.3 %; Mean Corpuscular Hgb Conc 31.9 g/dL (32-36); Mean Corpuscular Volume 89.3 fL (80-100); Monocytes # (auto) 0.69 K/uL (0.11-0.59); Monocytes % (auto) 8.5 %; Neutrophils # (auto) 6.43 K/uL (1.4-6.5); Neutrophils % (auto) 78.9 %; Platelet Count 197 K/uL (130-400); RDW Coefficient of Variation 13.1 % (11.5-14.5); RDW Standard Deviation 42.6 fL (36.4-46.3); Red Blood Count 4.95 M/uL (4.7-6.1); White Blood Count 8.15 K/uL (4.8-10.8)
[2018-12-09 07:14] LABS: Albumin Level 3.2 gm/dl (3.4-5.0); Calcium 8.9 mg/dl (8.5-10.1); Creatinine Clr Calc Pharmacy 72.3 ml/min; Est GFR (African American) 87.7; Est GFR (Non-African American) 75.7; Potassium 3.6 mmol/L (3.5-5.1)
[2018-12-09 07:17] LABS: Albumin Globulin Ratio 1.1 (0.9-2); Bilirubin,Total 0.9 mg/dl (0.2-1); Total Protein 6.2 gm/dl (6.4-8.2)
[2018-12-09] MEDS: BREO ELLIPTA ~ ORDER AWAITING ACTION SCH (08:03)
[2018-12-09] MEDS: TOLTERODINE TARTRATE 2 MG TAB PO SCH (08:04)
[2018-12-09] MEDS: CHLORHEXIDINE GLUCONATE 0.12% 480 ML MT SCH (08:05)
--- NOTE | 2018-12-09 08:08 | Anesthesiology Progress Note ---
Date of Service December 09, 2018 Anesthesia Post Procedure Vital Signs Vital Signs: Temp Pulse Pulse Pulse Resp BP BP 12/09/18 07:40 36.8 C 59 L 18 112/73 12/09/18 03:48 36.4 C L 60 18 116/73 12/08/18 23:00 36.6 C 61 18 107/65 12/08/18 15:25 36.5 C 18 116/84 12/08/18 14:22 36.8 C 59 L 16 109/70 12/08/18 13:24 36.6 C 61 16 114/73 12/08/18 12:55 36.4 C L 60 14 118/75 12/08/18 12:25 36.4 C L 61 14 117/77 12/08/18 12:05 36.9 C 60 14 121/82 12/08/18 11:55 60 16 132/86 12/08/18 11:45 60 16 129/92 12/08/18 11:35 36.7 C 62 16 131/88 12/08/18 09:49 36.9 C 62 22 114/71 Pulse Ox 12/09/18 07:40 94 12/09/18 03:48 94 12/08/18 23:00 94 12/08/18 15:25 94 12/08/18 14:22 95 12/08/18 13:24 95 12/08/18 12:55 96 12/08/18 12:25 97 12/08/18 12:05 95 12/08/18 11:55 98 12/08/18 11:45 98 12/08/18 11:35 99 12/08/18 09:49 96 Notes Mental Status: alert / awake / arousable and participated in evaluation Nausea / Vomiting: adequately controlled Pain: adequately controlled Airway Patency, RR, SpO2: stable & adequate BP & HR: stable & adequate Hydration State: stable & adequate
[2018-12-09] MEDS ORDERED: METOPROLOL SUCC 25MG EXT REL TAB PO SCH (09:00)
[2018-12-09] MEDS ORDERED: PANTOprazole 40 MG TAB PO SCH (09:00)
[2018-12-09] MEDS ORDERED: TAMSULOSIN HCL 0.4 MG CAP PO SCH (09:00)
[2018-12-09] MEDS ORDERED: POTASSIUM PO SCH (09:00)
[2018-12-09] MEDS ORDERED: PREGABALIN 75 MG CAP PO SCH (09:00)
[2018-12-09] MEDS ORDERED: CEROVITE ADV FORMULA TAB PO SCH (09:00)
--- NOTE | 2018-12-09 11:48 | Surgery Progress Note ---
Date of Service pt did have urinating 250ml, pt denies abdominal pain, no nausea, no vomiting, no fever, December 09, 2018 Assessment & Plan (1) Chronic appendicitis: S/P laparosocpic appendectomy. POD 1 difficulty urinating, Plan, consult urologist for further Dx and treatment, pt agrees with the plan, will F/U D/W DR madden(urologist) she recommend out-pt visiting her, next week, pt wants to go home today, the post-op care instruction was given, F/U 1 weeks, Physical Exam Constitutional: WD/WN, vitals as above well developed and well nourished Neck: trachea midline, no thyromegaly Respiratory: normal respiratory effort, lungs clear to auscultation normal respiratory effort Cardiovascular: RRR, no murmur, no edema Rate/Rhythm: regular rate and regular rhythm Heart Sounds: normal S1 and normal S2 Gastrointestinal (Abdomen): normal bowel sounds, soft, nontender, no hepatosplenomegaly Neurologic: patellar DTR's 2+ bilat, sensation intact Psychiatric: A+Ox3, euthymic affect Orientation: alert and oriented x 3 Results & Data Vital Signs (Past 12 Hours) Vital Signs Temp Pulse Resp BP BP Pulse Ox 12/09/18 07:40 36.8 C 59 L 18 112/73 94 12/09/18 03:48 36.4 C L 60 18 116/73 94
--- NOTE | 2018-12-11 13:24 | Discharge Summary ---
Date of Service December 11, 2018 Admission HPI Per Admitting Provider Patient presented to [facility] for elective laparoscopic appendectomy for dilated appendix and possiblity of chronic appendicitis. Principal Diagnosis Dilated appendix chronic appendicitis Discharge Data Allergies Allergy/AdvReac Type Severity Reaction Status Date / Time codeine Allergy Unknown UNSURE Verified 12/08/18 09:43 REACTION - HAPPENED A CHILD Procedures Performed Operation Date: 12/08/18 10:45 Actual Procedures p Laparoscopic Appendectomy(Not Applicable) - Veronica Abraham MD Hospital Course (1) Chronic appendicitis: Patient taken to operating room for laparoscopic appendectomy possible open. Patient found to have dilated appendix and signs of some chronic inflammation. No mass. Patient tolerated procedure well and was transferred to recovery and then to medical/surgical floor for post operative care. He was started on clear liquid diet, IV fluids, PO Percocet prn pain with breakthrough IV Dilaudid, IV Zofran, his home medications, activity as tolerated, scds, incentive spirometry. He had difficulty urinating and had to be straight cathed overnight. Urology was consulted in the morning of pod # 1 however patient was able to void on his own. Follows with Dr. Gordon in urology for history of urinary retention. Advised to see her in follow-up in 1 week. Patient otherwise was stable, minimal pain, and tolerating diet. He was discharged home in stable condition. Total Time Total Time Spent Total Time Spent (In Minutes): 30 Total Time Includes: Examination of the Patient, Discharge Planning, Medication Reconciliation and Communication With Other Providers Discharge Plan Discharge Items Patient Disposition: Home - Self-Care Reason For Visit: Appendix Disease Discharge Diagnosis: Dilated appendix Urinary retention Discharge Goals: Decrease discomfort Activity: Per 'Additional Instructions' section Non-emergency contact: Surgeon Call non-emergency contact if: your pain is not controlled, your pain is worsening, your pain is unusual for you, your pain is concerning for you, you have a fever, your temperature is above 101, your wound has increased redness and your wound has increased drainage Follow-up/Referrals: Cristina Silva PA-C [Physician Asset Protection Specialist] - (Follow-up in general surgery office in 2 weeks, please call office at [phone] to make an appointment if you do not already have one) Citlali Gordon MD [Physician] - (Follow-up with urology in 1 week) Madan Ratliff MD [Primary Care Provider] - Diet: Regular and Low Fiber Diet Comment: Would avoid excessive fiber and dense meats for next few days- 1 week Addtl Provider Instructions: No heavy lifting over 20 pounds for 3-4 weeks No strenuous activity until cleared by surgeon No submerging incisions underwater for 2 weeks (no bathing, swimming, or hot tubs) No driving while taking narcotic pain medication or until you are pain free You may shower in 2 days. sponge bath and wash hair in meantime. Keep dressings clean and dry. After 2 days, remove outer dressings and shower. Leave steri strips on incisions for 7 days and then remove. Walking and light activity encouraged daily to prevent blood clots from forming in your legs. You will be given prescription for Percocet as needed for moderate to severe pain. This medication may cause drowsiness and constipation. You may take extra strength Tylenol or Ibuprofen if you are having mild pain. Avoid Tylenol while taking Percocet as Percocet has Tylenol in it. You may want to take OTC stool softener while taking pain medication to avoid constipation. Follow-up in surgical office in 2 weeks or as scheduled. Call office at [phone] if you do not already have an appointment. Follow-up with Dr. Gordon in Urology is 1 week due to history of difficulty urinating and urinary retention post op. Call [facility] at [facility] to set up appointment. Prescriptions: New oxycodone-acetaminophen [Percocet] 5-325 mg Tablet 1 tab PO Q4H PRN (Reason: pain) Qty: 15 RF: 0 Continued tolterodine 2 mg Capsule,Extended Release 24hr 2 mg PO BID RF: 0 albuterol sulfate 0.63 mg/3 mL Solution For Nebulization 2 puff Inhalation DAILY PRN (Reason: Shortness Of Breath) RF: 0 ranitidine HCl 300 mg Tablet 300 mg PO DAILY RF: 0 omeprazole 40 mg Capsule,Delayed Release(Dr/Ec) 40 mg PO QAM RF: 0 potassium 99 mg Tablet 95 mg PO QAM RF: 0 tamsulosin 0.4 mg Capsule 0.4 mg PO QAM RF: 0 montelukast [Singulair] 10 mg Tablet 10 mg PO HS RF: 0 metoprolol succinate 25 mg Tablet Extended Release 24 Hr 25 mg PO QAM RF: 0 Restasis 0.05 % Dropperette 1 drp OPHTHALMIC (EYE) Q12H RF: 0 Breo Ellipta 100-25 mcg/dose Blister With Device 1 inh INHALATION DAILY RF: 0 [id number] 500 mg calcium- 400 unit-15 mcg Tablet 1 tab PO QAM RF: 0 Lyrica 75 mg Capsule 75 mg PO DAILY RF: 0 chlorhexidine gluconate [Periogard] 0.12 % Mouthwash 15 ml BUCCAL BID RF: 0 mesalamine [Lialda] 1.2 gram Tablet,Delayed Release (Dr/Ec) 4.8 g PO QAM RF: 0 Stand-Alone Forms: [employer] [facility] [employer], [facility]/Other Patient Handouts: Appendectomy Laparoscopic Dc Discharge Orders: Discharge Order (Routine); Ordered 12/09/18 Ordered By: Cristina Silva Admission Data Admit Date/Time: 12/08/18 11:24 Attending Provider: Veronica Abraham Admit Provider: Veroniac Abraham Primary Care Provider: Madan Ratliff Service: Surgical Services Other Interventions: Discharge Summary Assessment (RN) Last Done: 12/09/18 14:51 Pending Studies at Discharge: Yes (appendix pathology, will be reviewed at follow-up visit) DC Date/Time DO NOT enter until pt leaves facility: 12/09/18 19:05
== END 2018-12-09 19:05 | disposition home or self-care (01) ==
LOC: ASU 09:05 → 3N 09:05

== ENCOUNTER 2021-11-27 16:09 | Inpatient (IN) ==
--- NOTE | 2021-11-27 17:21 | XRay Report ---
XR chest 1V portable HISTORY: 66 years-old Male Chest Pain acute atypical chest pain with cough COMPARISON: Chest radiographs 01/15/2018 TECHNIQUE: Portable AP view of the chest FINDINGS: The cardiac silhouette is enlarged. Left subclavian pacer. No pneumothorax or overt pulmonary edema. Unchanged blunting of the lateral costophrenic angles with interstitial coarsening of the lung bases suggestive of atelectasis. Degenerative changes of the shoulders and spine. IMPRESSION: Cardiomegaly without acute process. ACT 112: Negative or not required by law. The above report was generated using voice recognition software. It may contain grammatical, syntax o r spelling errors. Electronically signed by: Jp Carlisle M.D. 11/27/2021 5:19 PM
[2021-11-27 17:23] LABS: Eosinophils # (auto) 0.11 K/uL (0-0.5); Hematocrit (blood only) 41.1 % (42-52); Hemoglobin 13.3 g/dL (14.0-18.0); Immature Granulocytes # (auto) 0.03 K/uL (0.00-0.02); Immature Granulocytes % (auto) 0.5 %; Lymphocytes # (auto) 0.49 K/uL (1.2-3.4); Lymphocytes % (auto) 8.9 %; Mean Corpuscular Hgb Conc 32.4 g/dL (32-36); Mean Corpuscular Volume 89.5 fL (80-100); Mean Platelet Volume 10.8 fL (7.4-10.4); Monocytes # (auto) 0.57 K/uL (0.11-0.59); Monocytes % (auto) 10.4 %; Neutrophils % (auto) 78.2 %; Platelet Count 207 K/uL (130-400); RDW Coefficient of Variation 13.3 % (11.5-14.5); RDW Standard Deviation 43.6 fL (36.4-46.3); Red Blood Count 4.59 M/uL (4.7-6.1)
[2021-11-27 17:36] LABS: Base Excess VBG 6.7 mEq/L; HCO3 VBG 32 mmol/L; PCO2 VBG 49 mmHg (38-50); PO2 VBG 24 mmHg; pH VBG 7.44 (7.36-7.41)
[2021-11-27 17:38] LABS: Oxygen Saturation VBG < 60.0 %
--- NOTE | 2021-11-27 17:44 | Emergency Department Note ---
History of Present Illness General Chief Complaint: Shortness of Breath/Dyspnea Stated Complaint: SHORTNESS OF BREATH Time Seen by Provider: 11/27/21 16:24 History of Present Illness Provider Complaint: shortness of breath and cough Onset (ago): week(s) (2) Severity: moderate Consistency/Duration: + progressively worsening Maximum Pain Intensity: 8 Relieved By: + upright position Exacerbated By: + lying flat, + exertion, + movement and + coughing Context: + choking/aspiration; no medication noncompliance, no allergen exposure, no recent travel, no smoke/fume exposure or no trauma/injury Known history of: asthma Associated symptoms: + chest pain, + cough, + wheezing, + sputum production, + orthopnea and + chest congestion; no fever, no paresthesias, no hemoptysis, no nausea/vomiting, no syncope, no abdominal pain or no rash HPI Narrative: Patient uses home oxygen as needed. Home Medications Medication Instructions Recorded Confirmed Type albuterol sulfate 0.63 mg/3 mL 2 puff INHALATION DAILY PRN 03/29/18 11/27/21 History solution for nebulization cyclosporine 0.05 % eye drops in a 1 drp OPHTHALMIC (EYE) Q12H 03/29/18 11/27/21 History dropperette (Restasis) montelukast 10 mg tablet 10 mg PO HS 03/29/18 11/27/21 History (Singulair) omeprazole 40 mg capsule,delayed 40 mg PO QAM 03/29/18 11/27/21 History release cyanocobalamin (vitamin B-12) 1,000 mcg SUBCUT MO 10/30/19 11/27/21 History 1,000 mcg/mL injection solution aspirin 81 mg chewable tablet 81 mg PO QAM 05/29/21 11/27/21 History atorvastatin 20 mg tablet 20 mg PO DAILY 05/29/21 11/27/21 History diclofenac sodium 50 mg 50 mg PO BID 05/29/21 11/27/21 History tablet,delayed release dicyclomine 10 mg capsule 10 mg PO DAILY 05/29/21 11/27/21 History famotidine 40 mg tablet 40 mg PO DAILY 05/29/21 11/27/21 History fluticasone 250 mcg-salmeterol 50 1 inh INHALATION BID 05/29/21 11/27/21 History mcg/dose blistr powdr for inhalation levetiracetam 500 mg tablet 500 mg PO BID 05/29/21 11/27/21 History nadolol 40 mg tablet 40 mg PO DAILY 05/29/21 11/27/21 History nortriptyline 25 mg capsule 25 mg PO HS 05/29/21 11/27/21 History oxybutynin chloride 5 mg 5 mg PO DAILY 05/29/21 11/27/21 History tablet,extended release 24 hr pregabalin 150 mg capsule 150 mg PO BID 05/29/21 11/27/21 History albuterol sulfate 90 mcg/actuation 2 puff INHALATION Q6H PRN 11/27/21 11/27/21 History aerosol inhaler (Ventolin HFA) calcium carbonate 600 mg-vitamin 2 tab PO DAILY 11/27/21 11/27/21 History D3 5 mcg (200 unit) tablet cholecalciferol (vitamin D3) 10 0 mcg PO DAILY 11/27/21 11/27/21 History mcg (400 unit) capsule (Vitamin D3) duloxetine 60 mg capsule,delayed 60 mg PO DAILY 11/27/21 11/27/21 History release mesalamine 1.2 gram tablet,delayed 4.8 g PO DAILY 11/27/21 11/27/21 History release potassium chloride 10 mEq 10 meq PO DAILY 11/27/21 11/27/21 History capsule,extended release solifenacin 10 mg tablet 10 mg PO QAM 11/27/21 11/27/21 History tamsulosin 0.4 mg capsule 0.4 mg PO DAILY 11/27/21 11/27/21 History Allergies Allergy/AdvReac Type Severity Reaction Status Date / Time codeine Allergy Unknown UNSURE Verified 11/27/21 18:30 REACTION - HAPPENED A CHILD Sulfa (Sulfonamide Allergy Swelling Unverified 11/27/21 18:30 Antibiotics) of Lip/Tongue/Throat Past Med/Surg History Medical History (Updated 11/27/21 @ 19:47 by Kalin Ramos) Asthma, mild persistent LAST USED RESCUE INHALER 2 DAYS AGO BPH (benign prostatic hyperplasia) Cardiac pacemaker in situ [employer], last check 10/22/18\\JUANA SWANN [employer] Crohn's disease Degenerative disc disease EPIDURAL INJECTIONS (DENERVATION DONE IN THE PAST) Dry eye syndrome GERD (gastroesophageal reflux disease) Neuropathy Osteoarthritis Overactive bladder Overactive thyroid gland RADIATION THERAPY Pituitary abnormality BEING MONITORED AT [facility] (small bowel obstruction) Sleep apnea Noncompliant with CPAP (PT STATES USING BIPAP NOW/TOLERATING BETTER) Tachy-dell syndrome s/p PPM Transient ischemic attack (TIA) DX OVER 1 YEAR AGO Surgical History H/O colonoscopy H/O endoscopic sinus surgery H/O esophagogastroduodenoscopy History of anesthesia reaction SLOW TO "GO UNDER AND SLOW TO WAKE UP" History of cataract surgery RT/LEFT History of inguinal hernia repair History of tooth extraction 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 Family History Mother Family history of diabetes mellitus Father History of colon resection Brother History of colon resection Social History Smoking Status: Never smoker Second Hand Exposure: Yes; Hx Alcohol Use: Yes Alcohol type: beer, wine and hard liquor Hx Substance Use: No Preferred Language: Mozambican Communication Ability: Effective 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 Beliefs That Will Affect Care: None marital status: Single Current Living Situation: Alone Feels Safe at Home: Yes Assistive Devices: Walker Review of Systems A total of 10 systems reviewed and were otherwise negative Physical Exam Vital Signs: Vital Signs - 24 hr 11/27/21 16:12 11/27/21 17:05 11/27/21 17:06 Temperature 37.5 C Temperature Source Temporal Artery Sc an Pulse Rate 65 Pulse Rate [Right Finger] 62 Pulse Rhythm [Righ t Finger] Regular Pulse Strength [Ri ght Finger] Normal Respiratory Rate 26 H 20 Respiratory Effort / Characteristics Non-Labored Non-Labored Respiratory Depth Normal Normal Blood Pressure 121/79 Blood Pressure [Ri ght Arm] 94/68 L Blood Pressure Nereida n 93 Blood Pressure Nereida n [Right Arm] 76 Blood Pressure Pos ition [Right Arm] Lying Pulse Oximetry 95 97 Oxygen Delivery Me thod Room Air Nasal Cannula Nasal Cannula Oxygen Flow Rate 2 97 Sepsis Recent Feve r Within 48 Hours No Sepsis New/Unexpla ined Change in Men agustina Status No Sepsis Action Take n by Nursing No Action Required 11/27/21 18:30 11/27/21 19:39 Temperature Temperature Source Pulse Rate Pulse Rate [Right Finger] 67 63 Pulse Rhythm [Righ t Finger] Pulse Strength [Ri ght Finger] Respiratory Rate 18 20 Respiratory Effort / Characteristics Respiratory Depth Normal Normal Blood Pressure Blood Pressure [Ri ght Arm] 105/63 105/64 Blood Pressure Nereida n Blood Pressure Nereida n [Right Arm] 77 77 Blood Pressure Pos ition [Right Arm] Pulse Oximetry 97 96 Oxygen Delivery Me thod Nasal Cannula Nasal Cannula Oxygen Flow Rate Sepsis Recent Feve r Within 48 Hours Sepsis New/Unexpla ined Change in Men agustina Status Sepsis Action Take n by Nursing Physical Exam: Physical Exam GENERAL: He is oriented to person, place, and time. He appears well-developed and well-nourished. He does not appear distressed. HENT: Exam performed. - Head: Normocephalic and atraumatic. - Right Ear: External ear normal. No mastoid tenderness. - Left Ear: External ear normal. No mastoid tenderness. - Mouth/Throat: The oropharynx is clear and moist. No trismus in the jaw. No dental abscesses or uvula swelling. No oropharyngeal exudate or tonsillar abscesses. EYES: Conjunctivae and EOM are normal. Pupils are equal, round, and reactive to light. Right eye exhibits no discharge. Left eye exhibits no discharge. No scleral icterus. NECK: Normal range of motion. Neck supple. No JVD present. No spinous process tenderness present. No carotid bruit present. No rigidity. No tracheal deviation and normal range of motion present. No Brudzinski's sign and no Kernig's sign noted. CV: Normal rate, regular rhythm, normal heart sounds and intact distal pulses. There is no peripheral edema. Palpable radial pulses bue. PULM/CHEST: Effort normal and breath sounds normal. No respiratory distress. No stridor. He has no wheezes. He has no rales. - Chest Wall: He exhibits no tenderness. ABD: The abdomen is soft. Bowel sounds are normal. He has no distension. No mass is present. There is no tenderness. There is no rebound, no guarding, no Magallon's sign and no tenderness at McBurney's point. Rovsig negative. MUSC/SKEL: Normal range of motion. There is no peripheral edema, tenderness or deformity. LYMPH: No cervical adenopathy. NEURO: He is alert and oriented to person, place, and time. He has normal strength. No cranial nerve deficit or sensory deficit. Coordination and gait no rmal. GCS eye subscore is 4. GCS verbal subscore is 5. GCS motor subscore is 6. Cerebellar tests wnl. SKIN: Skin is warm and dry. He is not diaphoretic. PSYCH: He has a normal mood and affect. Behavior is normal. Judgment and thought content normal. Course Course 162: The patient was evaluated in room C6. A complete history and physical exam was performed Cardiac monitoring: An order was placed for continuous cardiac monitoring. The monitor shows a rate of 60 with paced rhythm Patient's oxygen level was low on arrival in the emergency department, 87% on room air so started on 2 L which improved his oxygen saturation. 194: Vital signs stable. Labs show that the patient is positive for COVID-19. Imaging shows no pulmonary emboli or pneumonia. Patient treated with Decadron 6 mg IV push. Patient will be admitted to the [facility] team Dr. Mckeon notified. Administered Medications Discontinued Medications Dexamethasone (Dexamethasone Sod Inj 4 Mg/Ml Vial) Confirm Administered Dose 8 mg .ROUTE .STK-MED ONE Stop: 11/27/21 19:34 Last Admin: 11/27/21 19:36 Dose: Not Given Documented by: [id number] Dexamethasone 6 mg/ Syringe 1.5 mls @ 1 mls/min IV ONE ONE Stop: 11/27/21 19:28 Last Admin: 11/27/21 19:37 Dose: 1 mls/min Documented by: [id number] Ioversol (Optiray 320 125ml) 119 ml IV ONCE ONE Stop: 11/27/21 19:09 Last Admin: 11/27/21 19:09 Dose: 119 ml Documented by: [id number] Medical Decision Making Laboratory Data Result diagrams: 11/27/21 17:01 11/27/21 17:01 Lab Results 11/27/21 11/27/21 11/27/21 Range/Units 16:45 17:01 17:01 WBC 5.50 (4.8-10.8) K/uL RBC 4.59 L (4.7-6.1) M/uL Hgb 13.3 L (14.0-18.0) g/dL POC Hgb (14.0-18.0) g/dl Hct 41.1 L (42-52) % POC Hct (42-52) % MCV 89.5 (80-100) fL MCH 29.0 (25-34) pg MCHC 32.4 (32-36) g/dL RDW Std Deviation 43.6 (36.4-46.3) fL RDW Coeff of Flower 13.3 (11.5-14.5) % Plt Count 207 (130-400) K/uL MPV 10.8 H (7.4-10.4) fL Immature Gran % (Auto) 0.5 % Neut % (Auto) 78.2 % Lymph % (Auto) 8.9 % Pacific % (Auto) 10.4 % Eos % (Auto) 2.0 % Baso % (Auto) 0.0 % Neut # (Auto) 4.30 (1.4-6.5) K/uL Lymph # (Auto) 0.49 L (1.2-3.4) K/uL Pacific # (Auto) 0.57 (0.11-0.59) K/uL Eos # (Auto) 0.11 (0-0.5) K/uL Baso # (Auto) 0.00 (0-0.2) K/uL Immature Gran # (Auto) 0.03 H (0.00-0.02) K/uL PT (9.0-12.0) Seconds INR (0.9-1.1) APTT (21.0-31.0) Seconds PTT Ratio D-Dimer (0-500) ug/L FEU VBG pH (7.36-7.41) VBG pCO2 (38-50) mmHg VBG pO2 mmHg VBG HCO3 mmol/L VBG O2 Saturation % VBG Base Excess mEq/L Barometric Pressure mm/Hg POC Sodium (135-144) mmol/L Sodium 136 (136-145) mmol/L POC Potassium (3.3-5.0) mmol/L Potassium TNP POC Chloride (101-112) mmol/L Chloride 98 (98-107) mmol/L Carbon Dioxide 31 (21-32) mmol/L POC Total CO2 (24-31) mmol/L Anion Gap 7 (3-11) POC Anion Gap (16-25) mmol/L POC BUN (7-18) mg/dl BUN 12 (6-23) mg/dl Creatinine 1.07 (0.6-1.4) mg/dl POC Creatinine (0.6-1.3) mg/dl Est Cr Clr Drug Dosing 71.7 ml/min Est GFR ( Amer) 84.0 ml/min Est GFR (Non-Af Amer) 72.5 ml/min BUN/Creatinine Ratio 11.2 (10-20) Glucose 87 (70-99(Fasting)) mg/dl POC Glucose (other) (70-99) mg/dl Calcium 9.1 (8.5-10.1) mg/dl POC Ioniz Calcium Matt (1.12-1.32) mmol/l Troponin I High Sens 2.7 (0-20) pg/ml B-Natriuretic Peptide (0-100) pg/ml Lipase 13 (11-82) U/L SARS-CoV-2, RNA, NAAT POSITIVE A* (NEGATIVE) 11/27/21 11/27/21 11/27/21 Range/Units 17:01 17:01 17:01 WBC (4.8-10.8) K/uL RBC (4.7-6.1) M/uL Hgb (14.0-18.0) g/dL POC Hgb (14.0-18.0) g/dl Hct (42-52) % POC Hct (42-52) % MCV (80-100) fL MCH (25-34) pg MCHC (32-36) g/dL RDW Std Deviation (36.4-46.3) fL RDW Coeff of Flower (11.5-14.5) % Plt Count (130-400) K/uL MPV (7.4-10.4) fL Immature Gran % (Auto) % Neut % (Auto) % Lymph % (Auto) % Pacific % (Auto) % Eos % (Auto) % Baso % (Auto) % Neut # (Auto) (1.4-6.5) K/uL Lymph # (Auto) (1.2-3.4) K/uL Pacific # (Auto) (0.11-0.59) K/uL Eos # (Auto) (0-0.5) K/uL Baso # (Auto) (0-0.2) K/uL Immature Gran # (Auto) (0.00-0.02) K/uL PT 10.7 (9.0-12.0) Seconds INR 1.0 (0.9-1.1) APTT 29.1 (21.0-31.0) Seconds PTT Ratio 1.1 D-Dimer 570 H* (0-500) ug/L FEU VBG pH (7.36-7.41) VBG pCO2 (38-50) mmHg VBG pO2 mmHg VBG HCO3 mmol/L VBG O2 Saturation % VBG Base Excess mEq/L Barometric Pressure mm/Hg POC Sodium (135-144) mmol/L Sodium (136-145) mmol/L POC Potassium (3.3-5.0) mmol/L Potassium 4.1 POC Chloride (101-112) mmol/L Chloride (98-107) mmol/L Carbon Dioxide (21-32) mmol/L POC Total CO2 (24-31) mmol/L Anion Gap (3-11) POC Anion Gap (16-25) mmol/L POC BUN (7-18) mg/dl BUN (6-23) mg/dl Creatinine (0.6-1.4) mg/dl POC Creatinine (0.6-1.3) mg/dl Est Cr Clr Drug Dosing ml/min Est GFR ( Amer) ml/min Est GFR (Non-Af Amer) ml/min BUN/Creatinine Ratio (10-20) Glucose (70-99(Fasting)) mg/dl POC Glucose (other) (70-99) mg/dl Calcium (8.5-10.1) mg/dl POC Ioniz Calcium Matt (1.12-1.32) mmol/l Troponin I High Sens (0-20) pg/ml B-Natriuretic Peptide 106 H (0-100) pg/ml Lipase (11-82) U/L SARS-CoV-2, RNA, NAAT (NEGATIVE) 11/27/21 11/27/21 Range/Units 17:09 18:31 WBC (4.8-10.8) K/uL RBC (4.7-6.1) M/uL Hgb (14.0-18.0) g/dL POC Hgb 12.9 L (14.0-18.0) g/dl Hct (42-52) % POC Hct 38 L (42-52) % MCV (80-100) fL MCH (25-34) pg MCHC (32-36) g/dL RDW Std Deviation (36.4-46.3) fL RDW Coeff of Flower (11.5-14.5) % Plt Count (130-400) K/uL MPV (7.4-10.4) fL Immature Gran % (Auto) % Neut % (Auto) % Lymph % (Auto) % Pacific % (Auto) % Eos % (Auto) % Baso % (Auto) % Neut # (Auto) (1.4-6.5) K/uL Lymph # (Auto) (1.2-3.4) K/uL Pacific # (Auto) (0.11-0.59) K/uL Eos # (Auto) (0-0.5) K/uL Baso # (Auto) (0-0.2) K/uL Immature Gran # (Auto) (0.00-0.02) K/uL PT (9.0-12.0) Seconds INR (0.9-1.1) APTT (21.0-31.0) Seconds PTT Ratio D-Dimer (0-500) ug/L FEU VBG pH 7.44 H (7.36-7.41) VBG pCO2 49 (38-50) mmHg VBG pO2 24 mmHg VBG HCO3 32 mmol/L VBG O2 Saturation < 60.0 % VBG Base Excess 6.7 mEq/L Barometric Pressure 728.1 mm/Hg POC Sodium 137 (135-144) mmol/L Sodium (136-145) mmol/L POC Potassium 3.6 (3.3-5.0) mmol/L Potassium POC Chloride 97 L (101-112) mmol/L Chloride (98-107) mmol/L Carbon Dioxide (21-32) mmol/L POC Total CO2 26 (24-31) mmol/L Anion Gap (3-11) POC Anion Gap 18.0 (16-25) mmol/L POC BUN 10 (7-18) mg/dl BUN (6-23) mg/dl Creatinine (0.6-1.4) mg/dl POC Creatinine 0.9 (0.6-1.3) mg/dl Est Cr Clr Drug Dosing ml/min Est GFR ( Amer) ml/min Est GFR (Non-Af Amer) ml/min BUN/Creatinine Ratio (10-20) Glucose (70-99(Fasting)) mg/dl POC Glucose (other) 92 (70-99) mg/dl Calcium (8.5-10.1) mg/dl POC Ioniz Calcium Matt 1.05 L (1.12-1.32) mmol/l Troponin I High Sens (0-20) pg/ml B-Natriuretic Peptide (0-100) pg/ml Lipase (11-82) U/L SARS-CoV-2, RNA, NAAT (NEGATIVE) Imaging Data Radiologist's Impression: Chest X-Ray 11/27/21 16:24 XR chest 1V portable HISTORY: 66 years-old Male Chest Pain acute atypical chest pain with cough COMPARISON: Chest radiographs 01/15/2018 TECHNIQUE: Portable AP view of the chest FINDINGS: The cardiac silhouette is enlarged. Left subclavian pacer. No pneumothorax or overt pulmonary edema. Unchanged blunting of the lateral costophrenic angles with interstitial coarsening of the lung bases suggestive of atelectasis. Degenerative changes of the shoulders and spine. IMPRESSION: Cardiomegaly without acute process. ACT 112: Negative or not required by law. The above report was generated using voice recognition software. It may contain grammatical, syntax or spelling errors. Electronically signed by: Jp Carlisle M.D. 11/27/2021 5:19 PM Chest CTA 11/27/21 18:11 CT angio chest PE protocol CT DOSE: 432.84 mGy.cm HISTORY: 66 years-old Male with ro PE. Acute shortness of breath with cough and wheezing TECHNIQUE: Multiple CTA images of the chest were obtained after the intravenous administration of 119 ml Optiray. Coronal and sagittal MIPS were obtained from the axial data set and were submitted for review. All measurements were obtained according to NASCET criteria. A dose lowering technique was utilized ad izzy to the principles of ALARA. COMPARISON: Chest radiograph of same day FINDINGS: CTA: The heart is normal in size. Left subclavian pacer. Moderate coronary artery calcifications. Unremarkable opacified thoracic aorta. The pulmonary artery is opacified to level of the segmental branches and demonstrates no filling defects to suggest thromboembolic disease. The subsegmental branches are not well opacified secondary to contrast bolus timing. CT CHEST: No thyroid nodule. No pathologically enlarged lymph nodes are identified. No pneumothorax, pleural effusion, airspace consolidation or overt pulmonary edema. There are no suspicious pulmonary nodules or masses. Mild subsegmental bibasilar atelectasis. Mild bronchial wall thickening. Nonspecific mid to distal esophageal wall thickening. Unremarkable soft tissues. Degenerative changes of the shoulders and spine. IMPRESSION: 1. No pulmonary emboli. 2. No pleural effusion or airspace consolidation typical for pneumonia. 3. Mild bronchial wall thickening may represent bronchitis versus reactive airway disease. 4. Nonspecific mid to distal esophageal wall thickening. Correlate clinically to exclude esophagitis. ACT 112: Negative or not required by law. The above report was generated using voice recognition software. It may contain grammatical, syntax or spelling errors. Electronically signed by: Jp Carlisle M.D. 11/27/2021 7:40 PM ECG Data Interpretation: Paced rhythm with rate of 60. IA 186 QRS 122 QTC 436. No ectopy. [facility] Narrative 1624: The patient was evaluated in room C6. A complete history and physical exam was performed Cardiac monitoring: An order was placed for continuous cardiac monitoring. The monitor shows a rate of 60 with paced rhythm Patient's oxygen level was low on arrival in the emergency department, 87% on room air so started on 2 L which improved his oxygen saturation. 1946: Vital signs stable. Labs show that the patient is positive for COVID-19. Imaging shows no pulmonary emboli or pneumonia. Patient treated with Decadron 6 mg IV push. Patient will be admitted to the [facility] Dr. Mckeon notified. Impression & Plan COVID-19, Hypoxia Discharge Plan Visit Data Chief Complaint: Shortness of Breath/Dyspnea Stated Complaint: SHORTNESS OF BREATH ED Provider: Kalin Ramos Discharge Problem: COVID-19, Hypoxia Patient Disposition: Admitted As Inpatient Forms Stand Alone Forms: [facility] Prescriptions Prescriptions: No Action albuterol sulfate 0.63 mg/3 mL Solution For Nebulization 2 puff Inhalation DAILY PRN (Reason: Shortness Of Breath) RF: 0 omeprazole 40 mg Capsule,Delayed Release(Dr/Ec) 40 mg PO QAM RF: 0 montelukast [Singulair] 10 mg Tablet 10 mg PO HS RF: 0 cyclosporine [Restasis] 0.05 % Dropperette 1 drp OPHTHALMIC (EYE) Q12H RF: 0 cyanocobalamin (vitamin B-12) 1,000 mcg/mL Solution 1,000 mcg SUBCUT MO RF: 0 potassium chloride 10 mEq capsule, extended release 10 meq PO DAILY RF: 0 calcium carbonate-vitamin D3 600 mg-5 mcg (200 unit) tablet 2 tab PO DAILY RF: 0 tamsulosin 0.4 mg capsule 0.4 mg PO DAILY RF: 0 albuterol sulfate [Ventolin HFA] 90 mcg/actuation HFA aerosol inhaler 2 puff INHALATION Q6H PRN (Reason: Shortness Of Breath) RF: 0 duloxetine 60 mg capsule,delayed release(DR/EC) 60 mg PO DAILY RF: 0 solifenacin 10 mg tablet 10 mg PO QAM RF: 0 mesalamine 1.2 gram tablet,delayed release (DR/EC) 4.8 g PO DAILY RF: 0 cholecalciferol (vitamin D3) [Vitamin D3] 10 mcg (400 unit) Capsule 0 mcg PO DAILY RF: 0 fluticasone propion-salmeterol 250-50 mcg/dose Blister With Device 1 inh INHALATION BID RF: 0 atorvastatin 20 mg tablet 20 mg PO DAILY RF: 0 levetiracetam 500 mg tablet 500 mg PO BID RF: 0 famotidine 40 mg tablet 40 mg PO DAILY RF: 0 nortriptyline 25 mg capsule 25 mg PO HS RF: 0 oxybutynin chloride 5 mg tablet extended release 24hr 5 mg PO DAILY RF: 0 aspirin 81 mg Tablet,Chewable 81 mg PO QAM RF: 0 nadolol 40 mg tablet 40 mg PO DAILY RF: 0 diclofenac sodium 50 mg tablet,delayed release (DR/EC) 50 mg PO BID RF: 0 dicyclomine 10 mg Capsule 10 mg PO DAILY RF: 0 pregabalin 150 mg capsule 150 mg PO BID RF: 0 Referrals Referrals: Bandar Bailon DO [Primary Care Provider] -
[2021-11-27 17:51] LABS: Troponin I High Sensitivity 2.7 pg/ml (0-20)
[2021-11-27 17:55] LABS: Partial Thromboplastin Ratio 1.1; Partial Thromboplastin Time 29.1 Seconds (21.0-31.0); Prothrombin Time 10.7 Seconds (9.0-12.0)
[2021-11-27 18:07] LABS: D Dimer 570 ug/L FEU (0-500)
[2021-11-27 18:10] LABS: Anion Gap 7 (3-11); BUN Creatinine Ratio 11.2 (10-20); Blood Urea Nitrogen 12 mg/dl (6-23); Calcium 9.1 mg/dl (8.5-10.1); Carbon Dioxide 31 mmol/L (21-32); Chloride 98 mmol/L (98-107); Creatinine Clr Calc Pharmacy 71.7 ml/min; Est GFR (Non-African American) 72.5 ml/min; Glucose 87 mg/dl (70-99(Fasting)); Lipase 13 U/L (11-82); Sodium 136 mmol/L (136-145)
[2021-11-27 18:44] LABS: iSTAT Creatinine 0.9 mg/dl (0.6-1.3); iSTAT Hemoglobin 12.9 g/dl (14.0-18.0); iSTAT Ionized Calcium 1.05 mmol/l (1.12-1.32); iSTAT Potassium 3.6 mmol/L (3.3-5.0)
[2021-11-27] MEDS ORDERED: OPTIRAY 320 125ml IV ONE (19:08)
[2021-11-27] MEDS ORDERED: dexAMETHasone 6 MG in SYRINGE 0 ML IV ONE (19:27)
[2021-11-27] MEDS ORDERED: DEXAMETHASONE SOD INJ 4 MG/ML VIAL ONE (19:33)
--- NOTE | 2021-11-27 19:42 | CT Scan Report ---
CT angio chest PE protocol CT DOSE: 432.84 mGy.cm HISTORY: 66 years-old Male with ro PE. Acute shortness of breath with cough and wheezing TECHNIQUE: Multiple CTA images of the chest were obtained after the intravenous administration of 119 ml Optiray. Coronal and sagittal MIPS were obtained from the axial data set and were submitted for review. All measurements were obtained according to NASCET criteria. A dose lowering technique was u tilized adhering to the principles of ALARA. COMPARISON: Chest radiograph of same day FINDINGS: CTA: The heart is normal in size. Left subclavian pacer. Moderate coronary artery calcifications. Unremark able opacified thoracic aorta. The pulmonary artery is opacified to level of the segmental branches a nd demonstrates no filling defects to suggest thromboembolic disease. The subsegmental branches are n ot well opacified secondary to contrast bolus timing. CT CHEST: No thyroid nodule. No pathologically enlarged lymph nodes are identified. No pneumothorax, pleural ef fusion, airspace consolidation or overt pulmonary edema. There are no suspicious pulmonary nodules or masses. Mild subsegmental bibasilar atelectasis. Mild bronchial wall thickening. Nonspecific mid to distal esophageal wall thickening. Unremarkable soft tissues. Degenerative changes of the shoulders and spine. IMPRESSION: 1. No pulmonary emboli. 2. No pleural effusion or airspace consolidation typical for pneumonia. 3. Mild bronchial wall thickening may represent bronchitis versus reactive airway disease. 4. Nonspecific mid to distal esophageal wall thickening. Correlate clinically to exclude esophagitis. ACT 112: Negative or not required by law. The above report was generated using voice recognition software. It may contain grammatical, syntax o r spelling errors. Electronically signed by: Jp Carlisle M.D. 11/27/2021 7:40 PM
--- NOTE | 2021-11-27 20:02 | History & Physical Report ---
Date of Service November 27, 2021 Assessment & Plan (1) COVID-19: (2) Hypoxia: Plan: This is a 66yo M with a PMH of asthma, ROBERT, pituitary macroadenoma, history of tachy-dell syndrome s/p pacemaker placement, Crohn's disease, seizure disorder and other medical problems listed below who presents with worsening SOB and cough over the past 3 weeks and was found to have covid 19. Hypoxic to 87% with ambulation, improved to mid-90s on 2L NC O2 Worsening cough over past 3 weeks so out of window for antiviral treatment Covid PCR test positive, CTA chest with No pulmonary emboli. No pleural effusion or airspace consolidation typical for pneumonia. Mild bronchial wall thickening may represent bronchitis versus reactive airway disease Given Decadron 6mg in ED, continue daily. Duonebs Q6H Covid isolation precautions (3) Asthma, mild persistent: Plan: Continue Advair, Ventolin Q6H, Duonebs PRN, receiving IV steroids for covid (4) Tachy-dell syndrome: (5) NSVT (nonsustained ventricular tachycardia): Plan: Continue Nadolol, s/p pacemaker placement (6) Crohn's disease: Plan: Continue Mesalamine (7) Pituitary macroadenoma: Plan: With visual disturbances. [place] [facility] [place] Continue Restasis BID (8) BPH (benign prostatic hyperplasia): Plan: Continue Tamsulosin (9) Sleep apnea: Plan: Bipap HS DVT Ppx: SQ Lovenox Code status: FULL PCP: Uvaldo Dispo: Admitted to PCU Patient seen in collaboration with Dr. Natarajan. Please see addendum. History of Present Illness Chief Complaint: SOB, covid Primary Care Provider: Bandar Bailon DO This is a 66yo M with a PMH of asthma, ROBERT, pituitary macroadenoma, history of tachy-dell syndrome s/p pacemaker placement, Crohn's disease, seizure disorder and other medical problems listed below who presents with worsening SOB and cough over the past 3 weeks. Patient was seen by PCP for cough a few weeks ago and diagnosed with complicated bronchitis and asthma exacerbation, completing course of azithromycin and prednisone. Recently traveled to [place] for a conference and returned a few days ago. Has felt progressively worse over the past few days with productive cough and short of breath especially when lying down. Decreased appetite with bloating. Feels like he cannot swallow pills but has this for awhile but is seeing GI for this. No fever, chills, headache, loss of taste or smell, chest pain, dysuria, diarrhea or constipation. No known sick contacts. Received both covid vaccinations and 1 booster. Allergies Allergy/AdvReac Type Severity Reaction Status Date / Time codeine Allergy Unknown UNSURE Verified 11/27/21 18:30 REACTION - HAPPENED A CHILD Sulfa (Sulfonamide Allergy Swelling Unverified 11/27/21 18:30 Antibiotics) of Lip/Tongue/Throat Home Medications Medication Instructions Recorded Confirmed Type albuterol sulfate 0.63 mg/3 mL 2 puff INHALATION DAILY PRN 03/29/18 11/27/21 History solution for nebulization cyclosporine 0.05 % eye drops in a 1 drp OPHTHALMIC (EYE) Q12H 03/29/18 11/27/21 History dropperette (Restasis) montelukast 10 mg tablet 10 mg PO HS 03/29/18 11/27/21 History (Singulair) omeprazole 40 mg capsule,delayed 40 mg PO QAM 03/29/18 11/27/21 History release cyanocobalamin (vitamin B-12) 1,000 mcg SUBCUT MO 10/30/19 11/27/21 History 1,000 mcg/mL injection solution aspirin 81 mg chewable tablet 81 mg PO QAM 05/29/21 11/27/21 History atorvastatin 20 mg tablet 20 mg PO DAILY 05/29/21 11/27/21 History diclofenac sodium 50 mg 50 mg PO BIDM 05/29/21 11/27/21 History tablet,delayed release dicyclomine 10 mg capsule 10 mg PO BID PRN 05/29/21 11/27/21 History famotidine 40 mg tablet 40 mg PO DAILY 05/29/21 11/27/21 History fluticasone 250 mcg-salmeterol 50 1 inh INHALATION BID 05/29/21 11/27/21 History mcg/dose blistr powdr for inhalation levetiracetam 500 mg tablet 500 mg PO BID 05/29/21 11/27/21 History nadolol 40 mg tablet 40 mg PO DAILY 05/29/21 11/27/21 History pregabalin 150 mg capsule 150 mg PO BID 05/29/21 11/27/21 History albuterol sulfate 90 mcg/actuation 2 puff INHALATION Q6H PRN 11/27/21 11/27/21 History aerosol inhaler (Ventolin HFA) calcium carbonate 600 mg-vitamin 2 tab PO DAILY 11/27/21 11/27/21 History D3 5 mcg (200 unit) tablet cholecalciferol (vitamin D3) 10 20 mcg PO DAILY 11/27/21 11/27/21 History mcg (400 unit) capsule (Vitamin D3) duloxetine 60 mg capsule,delayed 60 mg PO DAILY 11/27/21 11/27/21 History release mesalamine 1.2 gram tablet,delayed 4.8 g PO DAILY 11/27/21 11/27/21 History release potassium chloride 10 mEq 10 meq PO BID 11/27/21 11/27/21 History capsule,extended release solifenacin 10 mg tablet 10 mg PO QAM 11/27/21 11/27/21 History tamsulosin 0.4 mg capsule 0.4 mg PO DAILY 11/27/21 11/27/21 History Past Med/Surg History Medical History (Updated 11/27/21 @ 20:47 by Celia Ba PA-C) Asthma, mild persistent LAST USED RESCUE INHALER 2 DAYS AGO BPH (benign prostatic hyperplasia) Cardiac pacemaker in situ [employer], last check 10/22/18\\[facility] Crohn's disease Degenerative disc disease EPIDURAL INJECTIONS (DENERVATION DONE IN THE PAST) Dry eye syndrome GERD (gastroesophageal reflux disease) Neuropathy NSVT (nonsustained ventricular tachycardia) Osteoarthritis Overactive bladder Overactive thyroid gland RADIATION THERAPY Pituitary abnormality BEING MONITORED AT [facility] Pituitary macroadenoma SBO (small bowel obstruction) Sleep apnea Noncompliant with CPAP (PT STATES USING BIPAP NOW/TOLERATING BETTER) Tachy-dell syndrome s/p PPM Transient ischemic attack (TIA) DX OVER 1 YEAR AGO Surgical History H/O colonoscopy H/O endoscopic sinus surgery H/O esophagogastroduodenoscopy History of anesthesia reaction SLOW TO "GO UNDER AND SLOW TO WAKE UP" History of cataract surgery RT/LEFT History of inguinal hernia repair History of tooth extraction 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 Family History Mother Family history of diabetes mellitus Father History of colon resection Brother History of colon resection Social History Smoking Status: Never smoker Second Hand Exposure: Yes; Hx Alcohol Use: Yes Alcohol type: beer, wine and hard liquor Hx Substance Use: No Preferred Language: Syriac Communication Ability: Effective 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 Physical Exam Physical Exam: Please see Dr. Natarajan's addendum for physical exam. Results & Data Results & Data ([facility]) Vital Signs (Past 12 Hours) Vital Signs Temp Pulse Pulse Resp BP BP Pulse Ox 11/27/21 19:39 63 20 105/64 96 11/27/21 18:30 67 18 105/63 97 11/27/21 17:05 62 20 94/68 L 97 11/27/21 16:12 37.5 C 65 26 H 121/79 95 Laboratory Results Short CBC 11/27/21 Range/Units 17:01 WBC 5.50 (4.8-10.8) K/uL Hgb 13.3 L (14.0-18.0) g/dL Hct 41.1 L (42-52) % Plt Count 207 (130-400) K/uL BMP 11/27/21 11/27/21 17:01 17:01 Sodium 136 Potassium TNP 4.1 Chloride 98 Carbon Dioxide 31 BUN 12 Creatinine 1.07 Glucose 87 Calcium 9.1 Diagnostic Findings Chest X-Ray 11/27/21 16:24 XR chest 1V portable HISTORY: 66 years-old Male Chest Pain acute atypical chest pain with cough COMPARISON: Chest radiographs 01/15/2018 TECHNIQUE: Portable AP view of the chest FINDINGS: The cardiac silhouette is enlarged. Left subclavian pacer. No pneumothorax or overt pulmonary edema. Unchanged blunting of the lateral costophrenic angles with interstitial coarsening of the lung bases suggestive of atelectasis. Degenerative changes of the shoulders and spine. IMPRESSION: Cardiomegaly without acute process. ACT 112: Negative or not required by law. The above report was generated using voice recognition software. It may contain grammatical, syntax or spelling errors. Electronically signed by: Jp Carlisle M.D. 11/27/2021 5:19 PM Chest CTA 11/27/21 18:11 CT angio chest PE protocol CT DOSE: 432.84 mGy.cm HISTORY: 66 years-old Male with ro PE. Acute shortness of breath with cough and wheezing TECHNIQUE: Multiple CTA images of the chest were obtained after the intravenous administration of 119 ml Optiray. Coronal and sagittal MIPS were obtained from the axial data set and were submitted for review. All measurements were obtained according to NASCET criteria. A dose lowering technique was utilized adhering to the principles of ALARA. COMPARISON: Chest radiograph of same day FINDINGS: CTA: The heart is normal in size. Left subclavian pacer. Moderate coronary artery calcifications. Unremarkable opacified thoracic aorta. The pulmonary artery is opacified to level of the segmental branches and demonstrates no filling defects to suggest thromboembolic disease. The subsegmental branches are not well opacified secondary to contrast bolus timing. CT CHEST: No thyroid nodule. No pathologically enlarged lymph nodes are identified. No pneumothorax, pleural effusion, airspace consolidation or overt pulmonary edema. There are no suspicious pulmonary nodules or masses. Mild subsegmental bibasilar atelectasis. Mild bronchial wall thickening. Nonspecific mid to distal esophageal wall thickening. Unremarkable soft tissues. Degenerative changes of the shoulders and spine. IMPRESSION: 1. No pulmonary emboli. 2. No pleural effusion or airspace consolidation typical for pneumonia. 3. Mild bronchial wall thickening may represent bronchitis versus reactive airway disease. 4. Nonspecific mid to distal esophageal wall thickening. Correlate clinically to exclude esophagitis. ACT 112: Negative or not required by law. The above report was generated using voice recognition software. It may contain grammatical, syntax or spelling errors. Electronically signed by: Jp Carlisle M.D. 11/27/2021 7:40 PM Supervising Physician Co-Signing Physician Notes Pt is a 66 y/o M with hx of Pituitary microadenoma, Crohns disease, Tachy-dell syndrome s/p pacemaker, peripheral neuropathy, BPH, ROBERT, HLD, GERD, Prolactinemia, prediabetes, Urinary retention with self cath once a day admitted for hypoxia with COVID. PE: NAD, NC in place Lungs: good air entry b/l with rales in the lower lobes Card: normal S1/S2, no murmur Abd: ND, NT, soft MSK: no edema of the LEs Psych: AAOx3, normal affect A/P: Hypoxia with COVID infection: -CTA chest showed no PE -since pts symptoms has been represent for 3 weeks will do dexamethasone -trend CRP - normal LFTs and GFR -encourage frequent position change including proning -per pt he uses BiPAP at night: will continue -PT/OT Other chronic conditions: plan as above Agree with A/p by Celia ba PA-C
[2021-11-27] MEDS ORDERED: levETIRAcetam 500 MG TAB PO ONE (20:48)
[2021-11-27] MEDS ORDERED: PREGABALIN 150 MG CAP PO ONE (20:53)
[2021-11-27] MEDS ORDERED: POLYETHYLENE (MIRALAX) 17 GM PACK PO PRN (21:57)
[2021-11-27] MEDS ORDERED: ONDANSETRON INJ 2 MG/ML 2 ML VIAL IV PRN (21:57)
[2021-11-27] MEDS ORDERED: ACETAMINOPHEN 325 MG TAB PO PRN (21:57)
[2021-11-27] MEDS ORDERED: levETIRAcetam 500 MG TAB PO SCH (21:57)
[2021-11-27] MEDS ORDERED: ALBUT/IPRATROP 3MG/0.5MG NEB 3 ML VIAL NEB PRN (21:57)
[2021-11-27] MEDS: ALBUTEROL HFA 8 GM INHALER INH SCH (22:30)
[2021-11-27] MEDS ORDERED: ALBUTEROL HFA 8 GM INHALER INH PRN (22:55)
[2021-11-27] MEDS: MONTELUKAST SODIUM 10 MG TABLET PO SCH (23:08)
[2021-11-27] MEDS: POTASSIUM CHLORIDE 10 MEQ TABCR PO SCH (23:09)
[2021-11-27] MEDS: ENOXAPARIN INJ 40 MG/0.4 ML SYR SQ SCH (23:48)
[2021-11-28] MEDS: ALBUTEROL HFA 8 GM INHALER INH SCH (00:03)
[2021-11-28 06:47] LABS: Hematocrit (blood only) 41.7 % (42-52); Hemoglobin 13.5 g/dL (14.0-18.0); Mean Corpuscular Hemoglobin 29.2 pg (25-34); Mean Corpuscular Hgb Conc 32.4 g/dL (32-36); Mean Corpuscular Volume 90.3 fL (80-100); Mean Platelet Volume 11.2 fL (7.4-10.4); Platelet Count 211 K/uL (130-400); RDW Coefficient of Variation 13.6 % (11.5-14.5); RDW Standard Deviation 44.8 fL (36.4-46.3); Red Blood Count 4.62 M/uL (4.7-6.1); White Blood Count 4.56 K/uL (4.8-10.8)
[2021-11-28] MEDS ORDERED: ALBUTEROL HFA 8 GM INHALER INH SCH (07:00)
[2021-11-28 07:04] LABS: BUN Creatinine Ratio 13.3 (10-20); Calcium 9.2 mg/dl (8.5-10.1); Creatinine Clr Calc Pharmacy 67.8 ml/min; Est GFR (African American) 78.6 ml/min; Est GFR (Non-African American) 67.8 ml/min; Potassium 4.5 mmol/L (3.5-5.1)
[2021-11-28] MEDS: DICLOFENAC SODIUM 25 MG TABDR PO SCH ×2 (09:01→17:20)
[2021-11-28] MEDS: levETIRAcetam 500 MG TAB PO SCH ×2 (09:02→21:25)
[2021-11-28] MEDS: ASPIRIN 81 MG ECTAB PO SCH (09:02)
[2021-11-28] MEDS: ATORVASTATIN 20 MG TAB PO SCH (09:02)
[2021-11-28] MEDS: PANTOprazole 40 MG TAB PO SCH (09:03)
[2021-11-28] MEDS: CALCIUM 600MG + VIT D 400 IU TAB PO SCH (09:03)
[2021-11-28] MEDS: DULoxetine HCL 60 MG CAP PO SCH (09:03)
[2021-11-28] MEDS: FAMOTIDINE 40 MG TABLET PO SCH (09:03)
[2021-11-28] MEDS: CHOLECALCIFEROL 400 UNITS 10 MCG TAB PO SCH (09:03)
[2021-11-28] MEDS: POTASSIUM CHLORIDE 10 MEQ TABCR PO SCH ×2 (09:03→21:24)
[2021-11-28] MEDS: TAMSULOSIN HCL 0.4 MG CAP PO SCH (09:03)
[2021-11-28] MEDS: nadoloL 40 MG TAB PO SCH (09:03)
[2021-11-28] MEDS: FLUTICASONE/VILANTEROL 200/25MCG 14 PUFFS/INHALER INH SCH (09:04)
[2021-11-28] MEDS: dexAMETHasone 6 MG in SYRINGE 0 ML IV SCH (09:04)
[2021-11-28] MEDS: PREGABALIN 150 MG CAP PO SCH ×2 (09:22→21:24)
[2021-11-28] MEDS ORDERED: ALBUTEROL HFA 8 GM INHALER INH PRN (10:12)
--- NOTE | 2021-11-28 17:50 | Hospitalist Progress Note ---
Date of Service November 28, 2021 Assessment & Plan (1) COVID-19: (2) Hypoxia: Plan: This is a 66yo M with a PMH of asthma, ROBERT, pituitary macroadenoma, history of tachy-dell syndrome s/p pacemaker placement, Crohn's disease, seizure disorder and other medical problems listed below who presents with worsening SOB and cough over the past 3 weeks and was found to have covid 19. CTA chest showed no pulmonary emboli. No pleural effusion or airspace consolidat ion typical for pneumonia. Mild bronchial wall thickening may represent bronchitis versus reactive airway disease.] Testing positive for covid 19 Did not meet the criteria for remdesivir since symptoms has been going for 3 weeks Continue dexamethasone 6mg Pt was advised to self prone Will continue wean off the oxygen Will monitor inflammatory marker Continue neb treatment (3) Asthma, mild persistent: Plan: Continue Advair, Ventolin Q6H, Duonebs PRN, receiving IV steroids for covid (4) Tachy-dell syndrome: (5) NSVT (nonsustained ventricular tachycardia): Plan: Continue Nadolol, s/p pacemaker placement (6) Crohn's disease: Plan: Continue Mesalamine (7) Pituitary macroadenoma: Plan: With visual disturbances. Follows with [facility] [place]. Continue Restasis BID (8) BPH (benign prostatic hyperplasia): Plan: Continue Tamsulosin (9) Sleep apnea: Plan: Bipap HS DVT Ppx: SQ Lovenox Code status: FULL Admission and Anticipated Discharge Date Admission Date: November 27, 2021 Subjective Pt was seen and examined for follow up of SOB/hypoxia due to COVID 19 Lying in bed with no acute distress Pt said that his breathing is much better He said that he had oxygen at home that was given to use for hypoxia He said that he rarely used the oxygen and does not remember how much oxygen he used Denies any chest pain, palpitation, dizziness and fever Review of Systems Review of Systems: All systems reviewed & are unremarkable except as noted in Subjective General- No acute distress Head- atraumatic Eyes- PERRL, EOMI, ENT- oropharynx clear Neck- supple, no JVD Lungs- clear to auscultation Heart- regular rhythm; no murmur Abdomen- normal bowel sounds, soft, nontender Extremities- no calf tenderness Neuro- alert, oriented x 3; PERRL, EOMI; no facial palsy; no dysarthria Skin- warm & dry Results & Data Results & Data ([facility]) Vital Signs (Past 12 Hours) Vital Signs Temp Pulse Pulse Resp BP Pulse Ox 11/28/21 17:21 36.7 C 60 18 98/69 L 96 11/28/21 16:39 60 11/28/21 11:10 36.6 C 60 16 104/69 96 11/28/21 08:55 36.6 C 18 104/72 98 11/28/21 07:37 60 11/28/21 07:30 61 18 94
[2021-11-28] MEDS ORDERED: NURSING DECISION MEDICATION ONE (20:11)
[2021-11-28] MEDS ORDERED: COUGH DROP (SUGAR FREE) LOZ 24 LOZ/1 BOX BUCCAL PRN (20:21)
[2021-11-28] MEDS: ENOXAPARIN INJ 40 MG/0.4 ML SYR SQ SCH (21:24)
[2021-11-28] MEDS: MONTELUKAST SODIUM 10 MG TABLET PO SCH (21:25)
--- NOTE | 2021-11-28 22:02 | Electrocardiogram Report ---
Test Reason : Blood Pressure : / mmHG Vent. Rate : 062 BPM Atrial Rate : 062 BPM P-R Int : 186 ms QRS Dur : 122 ms QT Int : 430 ms P-R-T Axes : 007 -30 -15 degrees QTc Int : 436 ms Atrial-paced rhythm Left axis deviation Right bundle branch block Minimal voltage criteria for LVH, may be normal variant Abnormal ECG When compared with ECG of 14-JAN-2018 13:24, No significant change was found Confirmed by Raman Monaco ([id number]) on 11/28/2021 10:02:36 PM Referred By: Bandar Bailon Confirmed By:Raman Monaco
[2021-11-29 07:50] LABS: Hematocrit (blood only) 38.9 % (42-52); Hemoglobin 12.7 g/dL (14.0-18.0); Mean Corpuscular Hemoglobin 29.5 pg (25-34); Mean Corpuscular Hgb Conc 32.6 g/dL (32-36); Mean Corpuscular Volume 90.5 fL (80-100); Mean Platelet Volume 11.3 fL (7.4-10.4); Platelet Count 192 K/uL (130-400); RDW Coefficient of Variation 13.3 % (11.5-14.5); RDW Standard Deviation 44.4 fL (36.4-46.3); White Blood Count 9.45 K/uL (4.8-10.8)
[2021-11-29 08:20] LABS: Albumin Globulin Ratio 1.5 (0.9-2); Albumin Level 3.6 gm/dl (3.4-5.0); BUN Creatinine Ratio 21.7 (10-20); Bilirubin,Total 0.5 mg/dl (0.2-1.0); C Reactive Protein 1.55 mg/dl (0-0.5); Calcium 9.1 mg/dl (8.5-10.1); Creatinine Clr Calc Pharmacy 72.1 ml/min; Est GFR (African American) 84.9 ml/min; Est GFR (Non-African American) 73.3 ml/min; Globulin 2.4 gm/dl (2.5-4.0); Potassium 4.5 mmol/L (3.5-5.1)
[2021-11-29] MEDS: CALCIUM 600MG + VIT D 400 IU TAB PO SCH (08:34)
[2021-11-29] MEDS: PANTOprazole 40 MG TAB PO SCH (08:34)
[2021-11-29] MEDS: DULoxetine HCL 60 MG CAP PO SCH (08:34)
[2021-11-29] MEDS: nadoloL 40 MG TAB PO SCH (08:34)
[2021-11-29] MEDS: FAMOTIDINE 40 MG TABLET PO SCH (08:34)
[2021-11-29] MEDS: ATORVASTATIN 20 MG TAB PO SCH (08:34)
[2021-11-29] MEDS: TAMSULOSIN HCL 0.4 MG CAP PO SCH (08:35)
[2021-11-29] MEDS: levETIRAcetam 500 MG TAB PO SCH ×2 (08:35→20:58)
[2021-11-29] MEDS: ASPIRIN 81 MG ECTAB PO SCH (08:35)
[2021-11-29] MEDS: DICYCLOMINE HCL 10 MG CAP PO PRN (08:35)
[2021-11-29] MEDS: CHOLECALCIFEROL 400 UNITS 10 MCG TAB PO SCH (08:35)
[2021-11-29] MEDS: POTASSIUM CHLORIDE 10 MEQ TABCR PO SCH ×2 (08:35→20:59)
[2021-11-29] MEDS: FLUTICASONE/VILANTEROL 200/25MCG 14 PUFFS/INHALER INH SCH (08:36)
[2021-11-29] MEDS: PREGABALIN 150 MG CAP PO SCH ×2 (09:44→20:58)
[2021-11-29] MEDS: dexAMETHasone 6 MG in SYRINGE 0 ML IV SCH (14:27)
[2021-11-29] MEDS: DICLOFENAC SODIUM 25 MG TABDR PO SCH ×2 (15:37→19:06)
[2021-11-29] MEDS: MONTELUKAST SODIUM 10 MG TABLET PO SCH (20:58)
[2021-11-29] MEDS: ENOXAPARIN INJ 40 MG/0.4 ML SYR SQ SCH (20:59)
--- NOTE | 2021-11-29 23:48 | Hospitalist Progress Note ---
Date of Service November 29, 2021 Assessment & Plan (1) COVID-19: Plan: No evidence of pneumonia on CTA. He is on his baseline oxygen and feeling well- less symptomatic at this point. Continues on decadron. (2) Hypoxia: Plan: chronic, 2/2 underlying lung disease. (3) Tachy-dell syndrome: Plan: h/o pacemaker placement in the past. (4) NSVT (nonsustained ventricular tachycardia): Plan: Continue Nadolol, s/p pacemaker placement (5) Crohn's disease: Plan: Continue Mesalamine which is not on formulary. Pt was advised that he needs to bring his from home-verbalized understanding with intent to comply. (6) Pituitary macroadenoma: Plan: With visual disturbances. [place] [facility] [place] (7) BPH (benign prostatic hyperplasia): Plan: Continue Tamsulosin (8) Sleep apnea: Plan: Bipap HS DVT Ppx: SQ Lovenox Code status: FULL Dispo-to home in am. Respiratory 2 step to ensure no additional oxygen needed with ambulation at this point. Telemetry removed. Sherrill Beltre DO [facility] Hospitalist Admission and Anticipated Discharge Date Admission Date: November 27, 2021 Subjective 66 yo M presents with excessive coughing and SOB 2/2 covid infection, no pneumonia on CT chest doing well feels improved since admission stable self catheterizes himself for urine on daily basis once daily wears home oxygen 2 LPM continuously at baseline. Review of Systems Review of Systems: All systems were reviewed and negative except as indicated on subjective above. Physical Exam Physical Exam: CONSTITUTIONAL: WNWD, vitals as above, generally well- appearing, NAD EYES: normal conjunctivae, no scleral icterus, ENT: external ear and nose normal,MMM NECK: trachea midline, RESPIRATORY: clear to auscultation bilaterally, no crackles, rales or wheezes, normal respiratory effort CARDIOVASCULAR: regular rate and rhythm, S1 and 2 heard without murmurs, gallops or rubs, no JVD, no peripheral edema, CHEST: inspection of chest was normal GASTROINTESTINAL: soft, nontender, ND, no guarding MUSCULOSKELETAL: strength 5/5 throughout, head is normocephalic and atraumatic, neck supple, normal palpation of chest wall without tenderness SKIN: warm and dry, NEUROLOGIC: CN 2-12 grossly intact, no sensory deficit, normal cognition, normal speech, no tremor PSYCHIATRIC: alert cooperative and oriented to person, place and time. Results & Data Results & Data ([facility]) Vital Signs (Past 12 Hours) Vital Signs Temp Pulse Pulse Resp BP Pulse Ox 11/29/21 22:23 63 22 97 11/29/21 22:18 95 11/29/21 21:06 97 11/29/21 20:49 95 11/29/21 12:05 36.5 C 65 17 103/68 98 Laboratory Results Short CBC 11/29/21 Range/Units 06:58 WBC 9.45 (4.8-10.8) K/uL Hgb 12.7 L (14.0-18.0) g/dL Hct 38.9 L (42-52) % Plt Count 192 (130-400) K/uL BMP 11/29/21 06:58 Sodium 137 Potassium 4.5 Chloride 102 Carbon Dioxide 31 BUN 23 Creatinine 1.06 Glucose 94 Calcium 9.1 Liver Function 11/29/21 Range/Units 06:58 Total Bilirubin 0.5 (0.2-1.0) mg/dl AST 15 (13-39) U/L ALT 27 (7-52) U/L Alkaline Phosphatase 55 (34-104) U/L Albumin 3.6 (3.4-5.0) gm/dl Medications Administered Current Inpatient Medications Acetaminophen (Acetaminophen 325 Mg Tab) 650 mg PO Q4H PRN PRN Reason: Pain or Fever Stop: 12/27/21 21:56 Last Admin: 11/27/21 22:55 Dose: 650 mg Documented by: Albuterol (Albut/Ipratrop 3mg/0.5mg Neb 3 Ml Vial) 3 ml NEB QIDR PRN; Protocol PRN Reason: Shortness Of Breath Or Wheezing Stop: 12/27/21 21:56 Albuterol (Albuterol Hfa 8 Gm Inhaler) 2 puffs INH QIDR PRN PRN Reason: Wheezing Stop: 12/28/21 06:59 Aspirin (Aspirin 81 Mg Ectab) 81 mg PO QAM [facility] Stop: 12/28/21 08:59 Last Admin: 11/29/21 08:35 Dose: 81 mg Documented by: Atorvastatin Calcium (Atorvastatin 20 Mg Tab) 20 mg PO DAILY [facility] Stop: 12/28/21 08:59 Last Admin: 11/29/21 08:34 Dose: 20 mg Documented by: Dexamethasone (Dexamethasone 4 Mg Tab) 6 mg PO DAILY [facility] Stop: 12/30/21 08:59 Diclofenac Sodium (Diclofenac Sodium 25 Mg Tabdr) 50 mg PO BIDM [facility] Stop: 12/28/21 07:59 Last Admin: 11/29/21 19:06 Dose: 50 mg Documented by: Dicyclomine HCl (Dicyclomine Hcl 10 Mg Cap) 10 mg PO BID PRN PRN Reason: Abdominal Discomfort Stop: 12/27/21 21:56 Last Admin: 11/29/21 08:35 Dose: 10 mg Documented by: Duloxetine HCl (Duloxetine Hcl 60 Mg Cap) 60 mg PO DAILY [facility] Stop: 12/28/21 08:59 Last Admin: 11/29/21 08:34 Dose: 60 mg Documented by: Enoxaparin Sodium (Enoxaparin Inj 40 Mg/0.4 Ml Syr) 40 mg SQ HS [facility] Stop: 12/27/21 21:56 Last Admin: 11/29/21 20:59 Dose: 40 mg Documented by: Famotidine (Famotidine 40 Mg Tablet) 40 mg PO DAILY [facility] Stop: 12/28/21 08:59 Last Admin: 11/29/21 08:34 Dose: 40 mg Documented by: Fluticasone/Vilanterol (Fluticasone/Vilanterol 200/25mcg 14 Puffs/Inhaler) 1 puffs INH DAILY [facility] Stop: 12/28/21 08:59 Last Admin: 11/29/21 08:36 Dose: 1 puffs Documented by: Levetiracetam (Levetiracetam 500 Mg Tab) 500 mg PO BID [facility] Stop: 12/28/21 08:59 Last Admin: 11/29/21 20:58 Dose: 500 mg Documented by: Menthol (Cough Drop (Sugar Free) Cristino 24 Cristino/1 Box) 1 cristino BUCCAL UD PRN PRN Reason: SORE THROAT Stop: 12/28/21 20:20 Last Admin: 11/28/21 21:25 Dose: 1 cristino Documented by: Miscellaneous (Mesalamine 4.8gm: Order Awaiting Action) 1 ea N/A QS [facility] Stop: 12/28/21 07:59 Last Admin: 11/29/21 15:37 Dose: Not Given Documented by: Miscellaneous (Solifenacin: Order Awaiting Action) 1 ea N/A QS [facility] Stop: 12/28/21 07:59 Last Admin: 11/29/21 15:37 Dose: Not Given Documented by: Miscellaneous (Cyclosporine [Restasis]: Order Awaiting Action) 1 ea N/A QS [facility] Stop: 12/28/21 07:59 Last Admin: 11/29/21 15:37 Dose: Not Given Documented by: Montelukast Sodium (Montelukast Sodium 10 Mg Tablet) 10 mg PO HS [facility] Stop: 12/27/21 21:56 Last Admin: 11/29/21 20:58 Dose: 10 mg Documented by: Multivitamins/Minerals (Calcium 600mg + Vit D 400 Iu Tab) 2 tab PO DAILY [facility] Stop: 12/28/21 08:59 Last Admin: 11/29/21 08:34 Dose: 2 tab Documented by: Nadolol (Nadolol 40 Mg Tab) 40 mg PO DAILY [facility] Stop: 12/28/21 08:59 Last Admin: 11/29/21 08:34 Dose: 40 mg Documented by: Ondansetron HCl (Ondansetron Inj 2 Mg/Ml 2 Ml Vial) 4 mg IV Q6H PRN PRN Reason: Nausea Stop: 12/27/21 21:56 Pantoprazole Sodium (Pantoprazole 40 Mg Tab) 40 mg PO QAM [facility] Stop: 12/28/21 08:59 Last Admin: 11/29/21 08:34 Dose: 40 mg Documented by: Polyethylene Glycol (Polyethylene (Miralax) 17 Gm Pack) 17 gm PO DAILY PRN PRN Reason: Constipation Stop: 12/27/21 21:56 Last Admin: 11/28/21 21:25 Dose: 17 gm Documented by: Potassium Chloride (Potassium Chloride 10 Meq Tabcr) 10 meq PO BID [facility] Stop: 12/27/21 21:56 Last Admin: 11/29/21 20:59 Dose: 10 meq Documented by: Pregabalin (Pregabalin 150 Mg Cap) 150 mg PO BID [facility] Stop: 12/28/21 08:59 Last Admin: 11/29/21 20:58 Dose: 150 mg Documented by: Tamsulosin HCl (Tamsulosin Hcl 0.4 Mg Cap) 0.4 mg PO DAILY [facility] Stop: 07/08/22 08:59 Last Admin: 11/29/21 08:35 Dose: 0.4 mg Documented by: Vitamin D (Cholecalciferol 400 Units 10 Mcg Tab) 800 units PO DAILY [facility] Stop: 12/28/21 08:59 Last Admin: 11/29/21 08:35 Dose: 800 units Documented by:
[2021-11-30 07:52] LABS: Creatinine Clr Calc Pharmacy 75.6 ml/min; Est GFR (Non-African American) 77.7 ml/min
[2021-11-30] MEDS: DICLOFENAC SODIUM 25 MG TABDR PO SCH (08:30)
[2021-11-30] MEDS: DULoxetine HCL 60 MG CAP PO SCH (08:31)
[2021-11-30] MEDS: ATORVASTATIN 20 MG TAB PO SCH (08:31)
[2021-11-30] MEDS: FAMOTIDINE 40 MG TABLET PO SCH (08:31)
[2021-11-30] MEDS: POTASSIUM CHLORIDE 10 MEQ TABCR PO SCH (08:31)
[2021-11-30] MEDS: nadoloL 40 MG TAB PO SCH (08:32)
[2021-11-30] MEDS: DICYCLOMINE HCL 10 MG CAP PO PRN (08:32)
[2021-11-30] MEDS: CALCIUM 600MG + VIT D 400 IU TAB PO SCH (08:32)
[2021-11-30] MEDS: TAMSULOSIN HCL 0.4 MG CAP PO SCH (08:33)
[2021-11-30] MEDS: CHOLECALCIFEROL 400 UNITS 10 MCG TAB PO SCH (08:33)
[2021-11-30] MEDS: PANTOprazole 40 MG TAB PO SCH (08:33)
[2021-11-30] MEDS: ASPIRIN 81 MG ECTAB PO SCH (08:33)
[2021-11-30] MEDS: levETIRAcetam 500 MG TAB PO SCH (08:33)
[2021-11-30] MEDS: FLUTICASONE/VILANTEROL 200/25MCG 14 PUFFS/INHALER INH SCH (08:36)
[2021-11-30] MEDS: PREGABALIN 150 MG CAP PO SCH (08:42)
[2021-11-30] MEDS ORDERED: dexAMETHasone 4 MG TAB PO SCH (09:00)
--- NOTE | 2021-11-30 12:21 | Discharge Summary ---
Date of Service November 30, 2021 Admission HPI Per Admitting Provider This is a 66yo M with a PMH of asthma, ROBERT, pituitary macroadenoma, history of tachy-dell syndrome s/p pacemaker placement, Crohn's disease, seizure disorder and other medical problems listed below who presents with worsening SOB and cough over the past 3 weeks. Patient was seen by PCP for cough a few weeks ago and diagnosed with complicated bronchitis and asthma exacerbation, completing course of azithromycin and prednisone. Recently traveled to [place] for a conference and returned a few days ago. Has felt progressively worse over the past few days with productive cough and short of breath especially when lying down. Decreased appetite with bloating. Feels like he cannot swallow pills but has this for awhile but is seeing GI for this. No fever, chills, headache, loss of taste or smell, chest pain, dysuria, diarrhea or constipation. No known sick contacts. Received both covid vaccinations and 1 booster. Discharge Data Allergies Allergy/AdvReac Type Severity Reaction Status Date / Time codeine Allergy Unknown UNSURE Verified 11/28/21 23:51 REACTION - HAPPENED A CHILD Sulfa (Sulfonamide Allergy Swelling Unverified 11/28/21 23:51 Antibiotics) of Lip/Tongue/Throat Consultations 11/27/21 19:45 ED Decision to Admit Stat Ordered Studies 11/27/21 18:11 CT angio chest PE protocol Stat Hospital Course (1) COVID-19: No evidence of pneumonia on CTA. He is on his baseline oxygen and feeling well-less symptomatic at this point. Continues on decadron. (2) Hypoxia: chronic, 2/2 underlying lung disease. (3) Tachy-dell syndrome: h/o pacemaker placement in the past. (4) NSVT (nonsustained ventricular tachycardia): Continue Nadolol, s/p pacemaker placement (5) Crohn's disease: Continue Mesalamine which is not on formulary. Pt was advised that he needs to bring his from home-verbalized understanding with intent to comply. (6) Pituitary macroadenoma: With visual disturbances. Follows with [facility]. (7) BPH (benign prostatic hyperplasia): Continue Tamsulosin (8) Sleep apnea: Bipap HS DVT Ppx: SQ Lovenox Code status: FULL Dispo-to home in am. Respiratory 2 step to ensure no additional oxygen needed with ambulation at this point. Telemetry removed. DO Britni Thakkar Discharge Plan Discharge Items Patient Disposition: Home - Self-Care Reason For Visit: COVID, HYPOXIA Discharge Diagnosis: COVID infection Condition on Discharge: Good Activity: Resume your previous activity Non-emergency contact: Primary Care Provider Call non-emergency contact if: you have any medication questions, your symptoms worsen, your pain is not controlled, your pain is worsening, your pain is unusual for you and your pain is concerning for you Follow-up/Referrals: Bandar Bailon DO [Primary Care Provider] - Diet: Regular Addtl Attending Provider Instructions: Please take all medications as instructed on discharge list below. It is recommended that you followup with your primary care physician within 1-2 weeks of hospital discharge. This is to ensure you are still doing well after returning home. At this appointment, you have an opportunity to discuss your medications and coming off of some of these. Based on symptom onset beginning 11/26/21, isolation is recommended with a mask until 12/06/21 (10 days). Please wear a mask during this time and do not travel. Please do not go to a public place where you will need to remove your mask during this window of time, such as a gym or a restaurant. Please discuss return to work guidance and specific company requirements with your employer's human resources department prior to returning to work. While in the hospital you continued to require straight catheterizing of your urine at least once daily. Please continue with this at home to avoid issues with ongoing urinary retention. It was a pleasure taking care of you! Please call if you have any questions or problems. You can reach a [facility] hospitalist on duty at [facility] 24 hours a day by calling [phone]. Take care of yourself. DO Dexter Th[facility]karLos [facility] Hospitalist Pending Studies at Discharge: No Stand-Alone Forms: My [facility] Medications and DC Order Prescriptions: Continued albuterol sulfate 0.63 mg/3 mL Solution For Nebulization 2 puff Inhalation DAILY PRN (Reason: Shortness Of Breath) RF: 0 omeprazole 40 mg Capsule,Delayed Release(Dr/Ec) 40 mg PO QAM RF: 0 montelukast [Singulair] 10 mg Tablet 10 mg PO HS RF: 0 cyclosporine [Restasis] 0.05 % Dropperette 1 drp OPHTHALMIC (EYE) Q12H RF: 0 cyanocobalamin (vitamin B-12) 1,000 mcg/mL Solution 1,000 mcg SUBCUT MO RF: 0 potassium chloride 10 mEq capsule, extended release 10 meq PO BID RF: 0 calcium carbonate-vitamin D3 600 mg-5 mcg (200 unit) tablet 2 tab PO DAILY RF: 0 tamsulosin 0.4 mg capsule 0.4 mg PO DAILY RF: 0 albuterol sulfate [Ventolin HFA] 90 mcg/actuation HFA aerosol inhaler 2 puff INHALATION Q6H PRN (Reason: Shortness Of Breath) RF: 0 duloxetine 60 mg capsule,delayed release(DR/EC) 60 mg PO DAILY RF: 0 solifenacin 10 mg tablet 10 mg PO QAM RF: 0 mesalamine 1.2 gram tablet,delayed release (DR/EC) 4.8 g PO DAILY RF: 0 cholecalciferol (vitamin D3) [Vitamin D3] 10 mcg (400 unit) Capsule 20 mcg PO DAILY RF: 0 fluticasone propion-salmeterol 250-50 mcg/dose Blister With Device 1 inh INHALATION BID RF: 0 atorvastatin 20 mg tablet 20 mg PO DAILY RF: 0 levetiracetam 500 mg tablet 500 mg PO BID RF: 0 famotidine 40 mg tablet 40 mg PO DAILY RF: 0 aspirin 81 mg Tablet,Chewable 81 mg PO QAM RF: 0 nadolol 40 mg tablet 40 mg PO DAILY RF: 0 diclofenac sodium 50 mg tablet,delayed release (DR/EC) 50 mg PO BIDM RF: 0 dicyclomine 10 mg Capsule 10 mg PO BID PRN (Reason: Abdominal Discomfort) RF: 0 pregabalin 150 mg capsule 150 mg PO BID RF: 0 Discharge Orders: Discharge Order (Routine); Ordered 11/30/21 Ordered By: Sherrill Beltre Admission Data Admit Date/Time: 11/27/21 20:45 Attending Provider: Sherrill Beltre Admit Provider: Donya Natarajan Primary Care Provider: Bandar Bailon Other Providers: Donya Natarajan
== END 2021-11-30 13:46 | disposition home or self-care (01) | DRG 178 ==
LOC: ED 16:09 → SUATTDRO 20:45 → 2N 20:45

== ENCOUNTER 2022-02-07 16:10 | Inpatient (IN) ==
[2022-02-07] MEDS ORDERED: SODIUM CHLORIDE 0.9% 1000ML 1,000 ML IV STA (16:23)
--- NOTE | 2022-02-07 16:58 | XRay Report ---
XR chest 1V portable CLINICAL HISTORY: N/V TECHNIQUE: Single frontal radiograph of the chest was obtained. Comparison: Comparison is made to chest radiograph 11/27/2021 and CTA chest 11/27/2021 FINDINGS: Dual lead pacemaker is seen. Questionable blunting of the left costophrenic angle. The cardiac silhou ette is normal. The lungs are clear. No evidence of pleural effusion or pneumothorax. IMPRESSION: Partial blunting of left costophrenic angle which may represent atelectasis/scarring or trace effusio n. No pneumoperitoneum is seen. ACT 112: Negative or not required by law. Electronically signed by: Gabriel Peck M.D. 02/07/2022 4:57 PM
[2022-02-07 17:56] LABS: Basophils # (auto) 0.03 K/uL (0-0.2); Basophils % (auto) 0.5 %; Eosinophils # (auto) 0.03 K/uL (0-0.50); Eosinophils % (auto) 0.5 %; Hematocrit (blood only) 44.5 % (40.1-51.0); Hemoglobin 14.8 g/dl (14.0-18.0); Immature Granulocytes # (auto) 0.03 K/uL (0.00-0.02); Immature Granulocytes % (auto) 0.5 %; Lymphocytes # (auto) 1.74 K/uL (1.2-3.4); Lymphocytes % (auto) 29.1 %; Mean Corpuscular Hemoglobin 29.2 pg (25.0-34.0); Mean Corpuscular Hgb Conc 33.3 g/dL (32.0-36.0); Mean Corpuscular Volume 87.8 fL (80.0-100.0); Mean Platelet Volume 10.7 fL (9.4-12.4); Monocytes # (auto) 0.53 K/uL (0.24-0.82); Monocytes % (auto) 8.9 %; Neutrophils # (auto) 3.61 K/uL (1.4-6.5); Neutrophils % (auto) 60.5 %; Platelet Count 249 K/uL (130-400); RDW Coefficient of Variation 12.5 % (11.5-14.5); RDW Standard Deviation 39.4 fL (36.4-46.3); Red Blood Count 5.07 M/uL (4.63-6.08); White Blood Count 5.97 K/ul (4.8-10.8)
--- NOTE | 2022-02-07 18:00 | Emergency Department Note ---
Impression & Plan Vomiting ED Provider Note INFORMANT: Patient ED PROVIDER(S): Lele Estevez MD CHIEF COMPLAINT: Vomiting PLAN: Disposition: Admitted Condition: Good Outpatient prescription management: none Referral: None MEDICAL DECISION MAKING: Patient presented because of vomiting. A work-up was initiated. Given his history head CT and abdominal imaging performed. The patient was found to have stable findings on his head CT regarding his tumor. CT scan of the abdomen pelvis did not reveal any acute findings. Chest x-ray was negative. Patient was hydrated and was treated with IV Zofran as well as IV hydrocortisone given his history. On reassessment he was feeling better but was still nauseated. ECG showed a paced rhythm. Patient had COVID testing performed and found fortunately this is positive. I suspect that COVID is the cause of the patient's symptoms. Given his nausea and vomiting and requirement for multiple medications further management in the hospital was deemed appropriate. Consultation was made with the [facility] service. Patient was evaluated in the ER and admitted for further management. Triage Nursing notes reviewed and agree them. Vital Signs: reviewed and remarkable for no significant abnormalities Differential diagnosis: Etiologies such as complication of brain tumor, gastroenteritis, food borne illness, infections, appendicitis, diverticulitis, inflammatory bowel disease, GI bleed, biliary pathology, as well as others were entertained. Diagnostics interpreted by me: ECG: Twelve-lead ECG reveals atrial paced rhythm at 60 bpm. Left axis deviation. Right bundle branch block. LVH. Cardiac Monitoring: Cardiac monitoring ordered by me: The patient was placed on continuous cardiac monitoring and observed. It revealed a paced rhythm 60 beats per minute without ectopy or evidence of dysrhythmia. Imaging studies: CT scans as noted above. I refer you to the EMR for further details. HPI: The patient is a 67 year old male who presents to the Emergency Room with complaints of vomiting. This started today at 0900 and is persistent. The patient also notes the following associated symptoms, blurred vision, lower abdominal pain, right hand tingling. Known pituitary tumor planned resection on mar 07 of this year. The patient has found no relieving factors. Current pain is rated as 7/10. Pt denies LOC, fevers, chills, diaphoresis, neck pain, chest pain, breathing difficulties, back pain, melena, hematochezia, urinary symptoms, numbness, weakness, lymphadenopathy, rash, or other complaints. ROS: See above HPI for pertinent positives & negatives. A total of 10 systems reviewed and were otherwise negative. PAST MEDICAL HISTORY:See Below , CAD PAST SURGICAL HISTORY:See Below,pacemaker FAMILY HISTORY:See Below SOCIAL HISTORY:See Below, no smoking HOME MEDICATIONS:See Below ALLERGIES:See Below VITALS:See Below PHYSICAL EXAMINATION: GENERAL: Awake, alert, uncomfortable-appearing, in no distress HENT: Normocephalic, atraumatic. Oropharynx unremarkable. EYES: Normal conjunctiva. Sclera non-icteric. NECK: Inspection normal. Non-tender. Supple. No nuchal rigidity. FROM. No masses. RESPIRATORY: Clear to auscultation. No wheezes. No rales. Normal respiratory effort. CARDIAC: Normal rate. Normal rhythm. No murmurs. No rubs. Extremities warm and well perfused. Pulses equal. No JVD. GI: Soft, non-distended. Lower tenderness to palpation. No rebound or guarding. No masses. RECTAL: Deferred. MUSCULOSKELETAL: Atraumatic. Chest examination reveals no tenderness. The back is symmetrical on inspection without obvious abnormality. There is no CVA tenderness to palpation. No joint edema. LOWER EXTREMITIES: Calves are equal size bilaterally and non-tender. No edema. No discoloration. NEURO: Normal sensorium. No sensory or motor deficits noted. SKIN: No rash or jaundice noted. Lele Estevez MD Past Med/Surg History Medical History (Updated 02/07/22 @ 18:00 by Lele Estevez MD) Asthma, mild persistent LAST USED RESCUE INHALER 2 DAYS AGO BPH (benign prostatic hyperplasia) Cardiac pacemaker in situ [employer], last check 10/22/18\\[facility] COVID-19 Crohn's disease Degenerative disc disease EPIDURAL INJECTIONS (DENERVATION DONE IN THE PAST) Dry eye syndrome GERD (gastroesophageal reflux disease) Hypoxia Neuropathy Osteoarthritis Overactive bladder Overactive thyroid gland RADIATION THERAPY Pituitary abnormality BEING MONITORED AT [facility] (small bowel obstruction) Transient ischemic attack (TIA) DX OVER 1 YEAR AGO Surgical History H/O colonoscopy H/O endoscopic sinus surgery H/O esophagogastroduodenoscopy History of anesthesia reaction SLOW TO "GO UNDER AND SLOW TO WAKE UP" History of cataract surgery RT/LEFT History of inguinal hernia repair History of tooth extraction 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 Family History Mother Family history of diabetes mellitus Father History of colon resection Brother History of colon resection Social History Smoking Status: Current every day smoker Second Hand Exposure: Yes; Hx Alcohol Use: Yes Alcohol type: beer Hx Substance Use: Yes Last Used Substance: Days (ago) Last Used Substance Other:: approx 3 months ago Substance Use Type Other:: "Marijuana candy" Preferred Language: Cypriot Communication Ability: Effective Collar Feller Required: No Beliefs That Will Affect Care: None marital status: Single Current Living Situation: Alone Current Living Situation Comment: Apartment Other Information That Helps Us Care for You: No Feels Safe at Home: Yes Assistive Devices: BiPap, Nebulizer and Oxygen - at Night Allergies Allergies Allergy/AdvReac Type Severity Reaction Status Date / Time codeine Allergy Unknown UNSURE Verified 02/07/22 21:15 REACTION - HAPPENED A CHILD Sulfa (Sulfonamide Allergy Swelling Unverified 02/07/22 21:15 Antibiotics) of Lip/Tongue/Throat Home Meds Home Medications Medication Instructions Recorded Confirmed albuterol sulfate 2.5 mg/3 mL 2.5 mg inhalation Q4H PRN 02/07/22 02/07/22 (0.083 %) solution for nebulization Shortness Of Breath Or Wheezing albuterol sulfate 90 mcg/actuation 2 puff inhalation Q6 PRN Wheezing 02/07/22 02/07/22 aerosol inhaler aspirin 81 mg chewable tablet 81 mg PO DAILY 02/07/22 02/07/22 atorvastatin 20 mg tablet 20 mg PO QAM 02/07/22 02/07/22 calcium carbonate 600 mg-vitamin 2 tab PO DAILY 02/07/22 02/07/22 D3 5 mcg (200 unit) tablet cholecalciferol (vitamin D3) 10 20 mcg PO DAILY 02/07/22 02/07/22 mcg (400 unit) tablet (Vitamin D3) cosyntropin 0.25 mg solution for 0.25 mg IM DIRECTED PRN PRN 02/07/22 02/07/22 injection cyanocobalamin (vitamin B-12) 1,000 mcg IM MO 02/07/22 02/07/22 1,000 mcg/mL injection solution cyclosporine 0.05 % eye drops in a 1 drp [facility] 02/07/22 02/07/22 dropperette (Restasis) dicyclomine 10 mg capsule 10 mg PO BID PRN CRAMPING 02/07/22 02/07/22 duloxetine 60 mg capsule,delayed 60 mg PO QAM 02/07/22 02/07/22 release famotidine 40 mg tablet 40 mg PO DAILY 02/07/22 02/07/22 fluticasone furoate 100 1 inh inhalation DAILY 02/07/22 02/07/22 mcg/actuation blister powder for inhalation (Arnuity Ellipta) hydrocortisone 5 mg tablet 5 mg PO .2HRS AFTER LUNCH 02/07/22 02/07/22 hydrocortisone 5 mg tablet 10 mg PO QAM 02/07/22 02/07/22 hydrocortisone sod succinate 100 100 mg IM DIRECTED 02/07/22 02/07/22 mg solution for injection (Solu-Cortef) levetiracetam 500 mg tablet 500 mg PO BID 02/07/22 02/07/22 mesalamine 1.2 gram tablet,delayed 4.8 g PO DAILY 02/07/22 02/07/22 release metoclopramide HCl 10 mg tablet 10 mg PO .QID UD 02/07/22 02/07/22 montelukast 10 mg tablet 10 mg PO HS 02/07/22 02/07/22 nadolol 40 mg tablet 40 mg PO QAM 02/07/22 02/07/22 omeprazole 40 mg capsule,delayed 40 mg PO DAILY 02/07/22 02/07/22 release potassium chloride 10 mEq 10 meq PO [facility] 02/07/22 02/07/22 capsule,extended release pregabalin 150 mg capsule 150 mg PO BID 02/07/22 02/07/22 solifenacin 10 mg tablet 10 mg PO QAM 02/07/22 02/07/22 tamsulosin 0.4 mg capsule 0.4 mg PO QA 02/07/22 02/07/22 Results & Data (ED) Vital Signs Vital Signs - 24 hr 02/07/22 16:21 Temperature 36.6 C Temperature Source Temporal Artery Scan Pulse Rate 67 Respiratory Rate 20 Respiratory Effort / Characteristics Non-Labored Spontaneous Respiratory Depth Normal Respiratory Pattern Regular Blood Pressure 126/83 Blood Pressure Mean 97 Pulse Oximetry 98 Oxygen Delivery Method Room Air Sepsis Recent Fever Within 48 Hours No Sepsis New/Unexplained Change in Mental Status No Sepsis Action Taken by Nursing No Action Required Laboratory Data Result diagrams: 02/08/22 06:25 02/08/22 06:25 Lab Results 02/07/22 02/07/22 02/07/22 Range/Units 17:35 17:35 17:35 WBC 5.97 (4.8-10.8) K/ul RBC 5.07 (4.63-6.08) M/uL Hgb 14.8 (14.0-18.0) g/dl Hct 44.5 (40.1-51.0) % MCV 87.8 (80.0-100.0) fL MCH 29.2 (25.0-34.0) pg MCHC 33.3 (32.0-36.0) g/dL RDW Std Deviation 39.4 (36.4-46.3) fL RDW Coeff of Flower 12.5 (11.5-14.5) % Plt Count 249 (130-400) K/uL MPV 10.7 (9.4-12.4) fL Immature Gran % (Auto) 0.5 % Neut % (Auto) 60.5 % Lymph % (Auto) 29.1 % Boundary % (Auto) 8.9 % Eos % (Auto) 0.5 % Baso % (Auto) 0.5 % Neut # (Auto) 3.61 (1.4-6.5) K/uL Lymph # (Auto) 1.74 (1.2-3.4) K/uL Boundary # (Auto) 0.53 (0.24-0.82) K/uL Eos # (Auto) 0.03 (0-0.50) K/uL Baso # (Auto) 0.03 (0-0.2) K/uL Immature Gran # (Auto) 0.03 H (0.00-0.02) K/uL PT 11.1 (9.0-12.0) Seconds INR 1.0 (0.9-1.1) Sodium 138 (136-145) mmol/L Potassium 3.6 (3.5-5.1) mmol/L Chloride 101 (98-107) mmol/L Carbon Dioxide 29 (21-32) mmol/L Anion Gap 8 (3-11) BUN 15 (6-23) mg/dl Creatinine 0.86 (0.6-1.4) mg/dl Est Cr Clr Drug Dosing 82.4 ml/min Est GFR ( Amer) 104.7 ml/min Est GFR (Non-Af Amer) 90.4 ml/min BUN/Creatinine Ratio 17.4 (10-20) Glucose 84 (70-99(Fasting)) mg/dl Calcium 9.9 (8.5-10.1) mg/dl Total Bilirubin 1.0 (0.2-1.0) mg/dl AST 20 (13-39) U/L ALT 19 (7-52) U/L Alkaline Phosphatase 64 (34-104) U/L Troponin I High Sens 3.7 (0-20) pg/ml Total Protein 7.2 (6.0-8.3) gm/dl Albumin 4.5 (3.4-5.0) gm/dl Globulin 2.7 (2.5-4.0) gm/dl Albumin/Globulin Ratio 1.7 (0.9-2) Lipase 7 L (11-82) U/L SARS-CoV-2 (PCR) (Negative) Influenza Type A (PCR) (Neg) Influenza Type B (PCR) (Neg) RSV (RT-PCR) (Neg) 02/07/22 Range/Units 19:00 WBC (4.8-10.8) K/ul RBC (4.63-6.08) M/uL Hgb (14.0-18.0) g/dl Hct (40.1-51.0) % MCV (80.0-100.0) fL MCH (25.0-34.0) pg MCHC (32.0-36.0) g/dL RDW Std Deviation (36.4-46.3) fL RDW Coeff of Flower (11.5-14.5) % Plt Count (130-400) K/uL MPV (9.4-12.4) fL Immature Gran % (Auto) % Neut % (Auto) % Lymph % (Auto) % Boundary % (Auto) % Eos % (Auto) % Baso % (Auto) % Neut # (Auto) (1.4-6.5) K/uL Lymph # (Auto) (1.2-3.4) K/uL Boundary # (Auto) (0.24-0.82) K/uL Eos # (Auto) (0-0.50) K/uL Baso # (Auto) (0-0.2) K/uL Immature Gran # (Auto) (0.00-0.02) K/uL PT (9.0-12.0) Seconds INR (0.9-1.1) Sodium (136-145) mmol/L Potassium (3.5-5.1) mmol/L Chloride (98-107) mmol/L Carbon Dioxide (21-32) mmol/L Anion Gap (3-11) BUN (6-23) mg/dl Creatinine (0.6-1.4) mg/dl Est Cr Clr Drug Dosing ml/min Est GFR ( Amer) ml/min Est GFR (Non-Af Amer) ml/min BUN/Creatinine Ratio (10-20) Glucose (70-99(Fasting)) mg/dl Calcium (8.5-10.1) mg/dl Total Bilirubin (0.2-1.0) mg/dl AST (13-39) U/L ALT (7-52) U/L Alkaline Phosphatase (34-104) U/L Troponin I High Sens (0-20) pg/ml Total Protein (6.0-8.3) gm/dl Albumin (3.4-5.0) gm/dl Globulin (2.5-4.0) gm/dl Albumin/Globulin Ratio (0.9-2) Lipase (11-82) U/L SARS-CoV-2 (PCR) POSITIVE A* (Negative) Influenza Type A (PCR) Negative (Neg) Influenza Type B (PCR) Negative (Neg) RSV (RT-PCR) Negative (Neg) Administered Medications Aspirin (Aspirin 81 Mg Ectab) 81 mg PO DAILY GALILEA Stop: 03/10/22 08:59 Last Admin: 02/08/22 08:10 Dose: 81 mg Documented By: ELAINA Atorvastatin Calcium (Atorvastatin 20 Mg Tab) 20 mg PO QA [place] Stop: 03/10/22 08:59 Last Admin: 02/08/22 08:10 Dose: 20 mg Documented By: ELAINA Duloxetine HCl (Duloxetine Hcl 60 Mg Cap) 60 mg PO QAM [place] Stop: 03/10/22 08:59 Last Admin: 02/08/22 08:12 Dose: 60 mg Documented By: ELAINA Enoxaparin Sodium (Enoxaparin Inj 40 Mg/0.4 Ml Syr) 40 mg SQ Q24H [place] Stop: 03/10/22 08:59 Last Admin: 02/08/22 08:12 Dose: 40 mg Documented By: ELAINA Famotidine (Famotidine 40 Mg Tablet) 40 mg PO DAILY [place] Stop: 03/10/22 08:59 Last Admin: 02/08/22 08:10 Dose: 40 mg Documented By: ELAINA Fluticasone Furoate (Fluticasone Furoate 100mcg 14 Puffs/Inhaler) 1 puffs INH DAILY [place] Stop: 03/10/22 08:59 Last Admin: 02/08/22 08:11 Dose: 1 puffs Documented By: ELAINA Hydrocortisone (Hydrocortisone 10 Mg Tab) 20 mg PO QAM [place] Stop: 03/10/22 08:59 Last Admin: 02/08/22 10:14 Dose: 20 mg Documented By: ELAINA Hydrocortisone (Hydrocortisone 10 Mg Tab) 10 mg PO DAILY@1400 [place] Stop: 03/10/22 13:59 Last Admin: 02/08/22 12:29 Dose: 10 mg Documented By: ELAINA Sodium Chloride (Nss 1000ml) 1,000 mls @ 125 mls/hr IV .Q8H [place] Stop: 03/10/22 04:25 Last Admin: 02/08/22 20:13 Dose: 125 mls/hr Documented By: Infusion: 02/08/22 20:13 Dose: 125 mls/hr Documented By: Admin: 02/08/22 12:28 Dose: 125 mls/hr Documented By: Infusion: 02/08/22 12:28 Dose: 125 mls/hr Documented By: Admin: 02/08/22 04:45 Dose: 125 mls/hr Documented By: MILAGRO Levetiracetam (Levetiracetam 500 Mg Tab) 500 mg PO BID [place] Stop: 03/10/22 08:59 Last Admin: 02/08/22 20:14 Dose: 500 mg Documented By: Admin: 02/08/22 08:11 Dose: 500 mg Documented By: ELAINA Metoclopramide HCl (Metoclopramide Hcl 10 Mg Tablet) 10 mg PO QID [place] Stop: 03/10/22 08:59 Last Admin: 02/08/22 20:14 Dose: 10 mg Documented By: Admin: 02/08/22 17:04 Dose: 10 mg Documented By: Admin: 02/08/22 12:28 Dose: 10 mg Documented By: Admin: 02/08/22 08:11 Dose: 10 mg Documented By: ELAINA Miscellaneous (Restasis - Order Awaiting Action) 1 each N/A QS [facility] Stop: 03/10/22 07:59 Last Admin: 02/08/22 23:05 Dose: Not Given Documented By: Admin: 02/08/22 14:36 Dose: Not Given Documented By: Admin: 02/08/22 07:04 Dose: Not Given Documented By: ELAINA Gordon (Mesalamine - Order Awaiting Action) 1 each N/A QS [facility] Stop: 03/10/22 07:59 Last Admin: 02/08/22 23:05 Dose: Not Given Documented By: Admin: 02/08/22 14:36 Dose: Not Given Documented By: Admin: 02/08/22 07:04 Dose: Not Given Documented By: ELAINA Gordon (Solifenacin - Order Awaiting Action) 1 each N/A QS [facility] Stop: 03/10/22 07:59 Last Admin: 02/08/22 23:05 Dose: Not Given Documented By: Admin: 02/08/22 14:36 Dose: Not Given Documented By: Admin: 02/08/22 07:04 Dose: Not Given Documented By: ELAINA Montelukast Sodium (Montelukast Sodium 10 Mg Tablet) 10 mg PO HS [place] Stop: 03/10/22 20:59 Last Admin: 02/08/22 20:15 Dose: 10 mg Documented By: DANIELLE Multivitamins/Minerals (Calcium 600mg + Vit D 400 Iu Tab) 2 tab PO DAILY [place] Stop: 03/10/22 08:59 Last Admin: 02/08/22 08:10 Dose: 2 tab Documented By: ELAINA Nadolol (Nadolol 40 Mg Tab) 40 mg PO QAM [place] Stop: 03/10/22 08:59 Last Admin: 02/08/22 08:10 Dose: 40 mg Documented By: ELAINA Ondansetron HCl (Ondansetron Inj 2 Mg/Ml 2 Ml Vial) 4 mg IV Q6H PRN PRN Reason: Nausea Stop: 03/10/22 04:25 Last Admin: 02/08/22 04:48 Dose: 4 mg Documented By: MILAGRO Pantoprazole Sodium (Pantoprazole 40 Mg Tab) 40 mg PO DAILY [place] Stop: 03/10/22 08:59 Last Admin: 02/08/22 08:10 Dose: 40 mg Documented By: ELAINA Potassium Chloride (Potassium Chloride 10 Meq Tabcr) 10 meq PO BID [place] Stop: 03/10/22 08:59 Last Admin: 02/08/22 20:15 Dose: 10 meq Documented By: Admin: 02/08/22 08:11 Dose: 10 meq Documented By: ELAINA Pregabalin (Pregabalin 150 Mg Cap) 150 mg PO BID [place] Stop: 03/10/22 08:59 Last Admin: 02/08/22 20:12 Dose: 150 mg Documented By: Admin: 02/08/22 10:14 Dose: 150 mg Documented By: ELAINA Tamsulosin HCl (Tamsulosin Hcl 0.4 Mg Cap) 0.4 mg PO QAM [place] Stop: 03/10/22 08:59 Last Admin: 02/08/22 08:10 Dose: 0.4 mg Documented By: ELAINA Vitamin D (Cholecalciferol 400 Units 10 Mcg Tab) 800 units PO DAILY [place] Stop: 03/10/22 08:59 Last Admin: 02/08/22 08:10 Dose: 800 units Documented By: ELAINA Discontinued Medications Hydrocortisone Sodium Succinate (Hydrocortisone Sod Succinate 100 Mg/2 Ml Vial) 50 mg IV NOW STA Stop: 02/07/22 18:05 Last Admin: 02/07/22 18:08 Dose: 50 mg Documented By: DC Sodium Chloride (Nss 1000ml) 1,000 mls @ 999 mls/hr IV .Q1H1M STA Stop: 02/07/22 17:23 Last Infusion: 02/07/22 19:07 Dose: 0 mls/hr Documented By: Admin: 02/07/22 17:58 Dose: 999 mls/hr Documented By: DC Ioversol (Optiray 300 100ml) 82 ml IV ONCE ONE Stop: 02/07/22 19:14 Last Admin: 02/07/22 19:20 Dose: 82 ml Documented By: SAVANAH Ondansetron HCl (Ondansetron Inj 2 Mg/Ml 2 Ml Vial) 4 mg IV NOW STA Stop: 02/07/22 18:02 Last Admin: 02/07/22 18:08 Dose: 4 mg Documented By: ML Imaging Data Radiologist's Impression: Chest X-Ray 02/07/22 16:24 XR chest 1V portable CLINICAL HISTORY: N/V TECHNIQUE: Single frontal radiograph of the chest was obtained. Comparison: Comparison is made to chest radiograph 11/27/2021 and CTA chest 11/27/2021 FINDINGS: Dual lead pacemaker is seen. Questionable blunting of the left costophrenic angle. The cardiac silhouette is normal. The lungs are clear. No evidence of pleural effusion or pneumothorax. IMPRESSION: Partial blunting of left costophrenic angle which may represent atelectasis/scarring or trace effusion. No pneumoperitoneum is seen. ACT 112: Negative or not required by law. Electronically signed by: Gabriel Peck M.D. 02/07/2022 4:57 PM Discharge Plan Visit Data Chief Complaint: Vomiting Stated Complaint: VOMITING ED Provider: Lele Estevez Discharge Problem: Vomiting Patient Disposition: Admitted As Inpatient Discharge Instructions Interventions: ED Discharge Assessment Last Done: 02/08/22 03:50
[2022-02-07] MEDS ORDERED: ONDANSETRON INJ 2 MG/ML 2 ML VIAL IV STA (18:01)
[2022-02-07] MEDS ORDERED: HYDROCORTISONE SOD SUCCINATE 100 MG/2 ML VIAL IV STA (18:04)
[2022-02-07 18:08] LABS: Prothrombin Time 11.1 Seconds (9.0-12.0)
[2022-02-07 18:17] LABS: Albumin Globulin Ratio 1.7 (0.9-2); Albumin Level 4.5 gm/dl (3.4-5.0); BUN Creatinine Ratio 17.4 (10-20); Calcium 9.9 mg/dl (8.5-10.1); Creatinine Clr Calc Pharmacy 82.4 ml/min; Est GFR (African American) 104.7 ml/min; Est GFR (Non-African American) 90.4 ml/min; Globulin 2.7 gm/dl (2.5-4.0); Potassium 3.6 mmol/L (3.5-5.1); Total Protein 7.2 gm/dl (6.0-8.3)
[2022-02-07 18:22] LABS: Troponin I High Sensitivity 3.7 pg/ml (0-20)
[2022-02-07] MEDS ORDERED: OPTIRAY 300 100mL IV ONE (19:13)
--- NOTE | 2022-02-07 19:33 | CT Scan Report ---
CT SCAN OF THE BRAIN COMBO CLINICAL HISTORY: Vomiting. Pituitary tumor. COMPARISON STUDY: CT of the brain dated 06/19/2020. MRI of the brain dated 06/26/2021. TECHNIQUE: Axial CT scan of the brain is performed from the vertex to the skull base before and follo wing the IV administration of 82 cc of Optiray 300. IV contrast was administered without contrast di ctation. A dose lowering technique was utilized adhering to the principles of ALARA. FINDINGS: Brain parenchyma: The brain parenchyma is normal in appearance. There is no hemorrhage, mass effect, or evidence of acute territorial ischemia by CT criteria. A 1.6 cm enhancing soft tissue nodules in t he sella is again seen on axial image #10. No additional enhancing mass lesion is seen on the postcon trast images. Sierra-white matter differentiation is preserved. No extra-axial fluid collection is seen . Ventricles, sulci, cisterns: Normal in configuration. Intracranial vasculature: The visualized intracranial vasculature at the skull base is normal in appe arance. Calvarium: Unremarkable. Sinuses and mastoids: There is trace mucosal thickening within the maxillary antra. The remaining vis ualized paranasal sinuses are clear. The mastoid air cells are well pneumatized. Orbits: The bony orbits are grossly intact. There are bilateral ocular lens implants. IMPRESSION: 1 There is no hemorrhage, mass effect, or evidence of acute territorial ischemia by CT criteria. 2. 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 This was better characterized on the 06/26/2021 MRI. ACT 112: Negative or not required by law. Electronically signed by: Davonte Freeman M.D. 02/07/2022 7:30 PM
[2022-02-07 20:01] LABS: Influenza A virus by PCR Negative (Neg); Influenza B virus by PCR Negative (Neg); RSV by PCR Negative (Neg)
--- NOTE | 2022-02-07 20:01 | CT Scan Report ---
CT SCAN OF THE ABDOMEN AND PELVIS WITH IV CONTRAST CLINICAL HISTORY: Vomiting. Lower abdominal pain. COMPARISON STUDY: Abdominal CT dated 03/12/2016. TECHNIQUE: Following the IV administration of 82 cc of Optiray 300, CT scan of the abdomen and pelvi s is performed from the lung bases to the proximal femora. Images are reviewed in the axial, sagittal , and coronal planes. IV contrast was administered without complication. A dose lowering technique wa s utilized adhering to the principles of ALARA. CT DOSE: 2966.66 mGy.cm FINDINGS: Lung bases: The heart is enlarged and without pericardial effusion. Pacemaker leads are in place. The lung bases are clear noting bibasilar scarring/atelectasis. Gynecomastia is noted. There is a small hiatal hernia. Liver: The contrast-enhanced liver is normal in size, contour, and attenuation. There is no intrahepa tic biliary ductal dilatation. The hepatic veins and portal veins are patent. A 1.9 cm right lobe hem angioma on image #123 is unchanged. A second smaller hemangioma is seen on image #65. Gallbladder: Unremarkable. Spleen: Normal in size and attenuation. Pancreas: Unremarkable. Adrenal glands: Unremarkable. Kidneys: The contrast enhanced kidneys demonstrate mild cortical atrophy and are without hydronephros is. The kidneys enhance symmetrically. A 7.7 cm cyst arises from the left lower pole. Abdominal vasculature: The abdominal aorta is normal in course and caliber noting mild atheroscleroti c calcification. Bowel: There is moderate colonic diverticulosis without CT evidence of acute diverticulitis. No bowel obstruction is seen. Duodenal diverticula are incidentally noted. The appendix is not identified an d findings suggest previous appendectomy. Peritoneum: There is no intraperitoneal free air or abdominal ascites. There is a fat-containing umbi lical hernia. Lymphadenopathy: None. Pelvic viscera: The prostate gland is diminutive and heterogeneous. The bladder wall is thickened and trabeculated indicating chronic outlet obstruction. There is a fat-containing left inguinal hernia. There is evidence of previous right inguinal herniorrhaphy. Skeletal structures: The skeletal structures are osteopenic. There is mild lumbosacral spondylosis. N o lytic or blastic lesions are seen. IMPRESSION: 1. No acute infectious or inflammatory findings are identified in the abdomen or pelvis. 2. Cardiomegaly and cardiac pacemaker. 3. Colonic diverticulosis without CT evidence of acute diverticulitis. 4. Additional findings as above. ACT 112: Negative or not required by law. Electronically signed by: Davonte Freeman M.D. 02/07/2022 7:59 PM
[2022-02-07 20:05] LABS: SARS CoV2 RNA(COVID-19) InHosp POSITIVE (Negative)
[2022-02-08] MEDS ORDERED: DICYCLOMINE HCL 10 MG CAP PO PRN (04:26)
[2022-02-08] MEDS ORDERED: ALBUTEROL HFA 8 GM INHALER INH PRN (04:26)
[2022-02-08] MEDS ORDERED: ONDANSETRON INJ 2 MG/ML 2 ML VIAL IV PRN (04:26)
[2022-02-08] MEDS ORDERED: NITROGLYCERIN SL 0.4 MG/TAB TAB SL PRN (04:26)
[2022-02-08] MEDS ORDERED: ALBUTEROL 0.083% NEBU SOLN 3 ML VIAL INH PRN (04:26)
[2022-02-08] MEDS: SODIUM CHLORIDE 0.9% 1000ML 1,000 ML IV SCH ×3 (04:45→20:13)
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
[2022-02-08 06:58] LABS: Basophils # (auto) 0.02 K/uL (0-0.2); Basophils % (auto) 0.3 %; Eosinophils # (auto) 0.04 K/uL (0-0.50); Eosinophils % (auto) 0.7 %; Hematocrit (blood only) 43.8 % (40.1-51.0); Hemoglobin 13.8 g/dl (14.0-18.0); Immature Granulocytes # (auto) 0.02 K/uL (0.00-0.02); Immature Granulocytes % (auto) 0.3 %; Lymphocytes # (auto) 1.61 K/uL (1.2-3.4); Lymphocytes % (auto) 27.7 %; Mean Corpuscular Hemoglobin 28.6 pg (25.0-34.0); Mean Corpuscular Hgb Conc 31.5 g/dL (32.0-36.0); Mean Corpuscular Volume 90.9 fL (80.0-100.0); Mean Platelet Volume 10.9 fL (9.4-12.4); Monocytes # (auto) 0.57 K/uL (0.24-0.82); Monocytes % (auto) 9.8 %; Neutrophils # (auto) 3.55 K/uL (1.4-6.5); Neutrophils % (auto) 61.2 %; Platelet Count 199 K/uL (130-400); RDW Coefficient of Variation 12.5 % (11.5-14.5); RDW Standard Deviation 41.1 fL (36.4-46.3); Red Blood Count 4.82 M/uL (4.63-6.08); White Blood Count 5.81 K/ul (4.8-10.8)
[2022-02-08 07:30] LABS: BUN Creatinine Ratio 21.9 (10-20); Calcium 8.9 mg/dl (8.5-10.1); Creatinine Clr Calc Pharmacy 99.3 ml/min; Est GFR (Non-African American) 96.7 ml/min; Magnesium 1.9 mg/dl (1.7-2.4); Phosphorus 4.3 mg/dl (2.5-4.9); Potassium 3.8 mmol/L (3.5-5.1)
[2022-02-08] MEDS: CHOLECALCIFEROL 400 UNITS 10 MCG TAB PO SCH (08:10)
[2022-02-08] MEDS: CALCIUM 600MG + VIT D 400 IU TAB PO SCH (08:10)
[2022-02-08] MEDS: nadoloL 40 MG TAB PO SCH (08:10)
[2022-02-08] MEDS: ASPIRIN 81 MG ECTAB PO SCH (08:10)
[2022-02-08] MEDS: TAMSULOSIN HCL 0.4 MG CAP PO SCH (08:10)
[2022-02-08] MEDS: ATORVASTATIN 20 MG TAB PO SCH (08:10)
[2022-02-08] MEDS: FAMOTIDINE 40 MG TABLET PO SCH (08:10)
[2022-02-08] MEDS: PANTOprazole 40 MG TAB PO SCH (08:10)
[2022-02-08] MEDS: POTASSIUM CHLORIDE 10 MEQ TABCR PO SCH ×2 (08:11→20:15)
[2022-02-08] MEDS: METOCLOPRAMIDE HCL 10 MG TABLET PO SCH ×4 (08:11→20:14)
[2022-02-08] MEDS: FLUTICASONE FUROATE 100MCG 14 PUFFS/INHALER INH SCH (08:11)
[2022-02-08] MEDS: levETIRAcetam 500 MG TAB PO SCH ×2 (08:11→20:14)
[2022-02-08] MEDS: ENOXAPARIN INJ 40 MG/0.4 ML SYR SQ SCH (08:12)
[2022-02-08] MEDS: DULoxetine HCL 60 MG CAP PO SCH (08:12)
[2022-02-08] MEDS ORDERED: HYDROCORTISONE 10 MG TAB PO SCH ×2 (09:00→14:00)
[2022-02-08] MEDS: PREGABALIN 150 MG CAP PO SCH ×2 (10:14→20:12)
[2022-02-08] MEDS: HYDROCORTISONE 10 MG TAB PO SCH ×2 (10:14→12:29)
--- NOTE | 2022-02-08 10:17 | Electrocardiogram Report ---
Test Reason : Blood Pressure : / mmHG Vent. Rate : 060 BPM Atrial Rate : 060 BPM P-R Int : 190 ms QRS Dur : 128 ms QT Int : 484 ms P-R-T Axes : -03 -34 -10 degrees QTc Int : 484 ms Atrial-paced rhythm Left axis deviation Right bundle branch block Minimal voltage criteria for LVH, may be normal variant Abnormal ECG When compared with ECG of 27-NOV-2021 16:45, No significant change was found Confirmed by Luis Armando Rodriguez ([id number]) on 02/08/2022 10:17:29 AM Referred By: Shaquille Byrne Confirmed By:Luis Armando Rodriguez
[2022-02-08 10:49] LABS: Appearance Urine Clear (Clear); Bilirubin Urine Negative (Negative); Blood Urine Negative (Negative); Color Urine Yellow; Glucose Urine UA Negative (Negative); Ketones Urine 2+ (Negative); Leukocyte Esterase Urine Negative (Negative); Nitrite Urine Negative (Negative); Protein Urine Negative (Negative); Specific Gravity Urine 1.035 (1.000-1.030); Urobilinogen Urine Negative (Negative)
--- NOTE | 2022-02-08 11:34 | Communication Note ---
Date of Service: February 08, 2022 Seen and examined at discharge. Feels somewhat better. No vomiting since last night. Antiemetics helping. Able to hold pills and jelloes down, but does not feel comfortable to advance diet yet. BM feels more like his Crohn's with good and bad days. No fever, chills, chest pain, shortness of breath. Asymptomatic from COVID. States he has EGD scheduled for 02/14 and pituitary surgery for 03/07. AAO, sitting comfortably in bed, on room air, chest clear, heart sounds normal, abd benign, no LE edema, non focal exam. Will continue conservative management w ith IVF, antiemetics prn, advance diet slowly as tolerated. Reviewed Dr Byrne's note from yesterday regarding his adrenal insufficiency and risk of adrenal crisis- recommended doubling the dose of solucortef for the duration of illness, if not helping triple the dose, if not able to take po start iv hydrocortisone. He is tolerating oral intake as of now. Solucortef dose doubled. Will increase his solucortef to double the dose with current stressor. He denies any headache, visual issues or focal neurological deficits to me. Will monitor with current management. Please see the H and P note from earlier today for full details of presentation. Full progress note will be done by the incoming hospitalist tomorrow.
[2022-02-08] MEDS: MONTELUKAST SODIUM 10 MG TABLET PO SCH (20:15)
[2022-02-09] MEDS: SODIUM CHLORIDE 0.9% 1000ML 1,000 ML IV SCH ×3 (06:38→16:24)
[2022-02-09 06:53] LABS: Hematocrit (blood only) 36.9 % (40.1-51.0); Hemoglobin 11.9 g/dl (14.0-18.0); Mean Corpuscular Hemoglobin 29.5 pg (25.0-34.0); Mean Corpuscular Hgb Conc 32.2 g/dL (32.0-36.0); Mean Corpuscular Volume 91.6 fL (80.0-100.0); Mean Platelet Volume 10.4 fL (9.4-12.4); Platelet Count 179 K/uL (130-400); RDW Coefficient of Variation 12.5 % (11.5-14.5); RDW Standard Deviation 41.9 fL (36.4-46.3); Red Blood Count 4.03 M/uL (4.63-6.08)
[2022-02-09 07:20] LABS: BUN Creatinine Ratio 14.8 (10-20); Calcium 8.3 mg/dl (8.5-10.1); Creatinine Clr Calc Pharmacy 84.9 ml/min; Est GFR (African American) 103.7 ml/min; Est GFR (Non-African American) 89.5 ml/min; Potassium 3.7 mmol/L (3.5-5.1)
[2022-02-09] MEDS: CHOLECALCIFEROL 400 UNITS 10 MCG TAB PO SCH (08:18)
[2022-02-09] MEDS: PREGABALIN 150 MG CAP PO SCH ×2 (08:18→21:12)
[2022-02-09] MEDS: FLUTICASONE FUROATE 100MCG 14 PUFFS/INHALER INH SCH (08:18)
[2022-02-09] MEDS: DULoxetine HCL 60 MG CAP PO SCH (08:19)
[2022-02-09] MEDS: POTASSIUM CHLORIDE 10 MEQ TABCR PO SCH ×2 (08:19→21:14)
[2022-02-09] MEDS: ASPIRIN 81 MG ECTAB PO SCH (08:19)
[2022-02-09] MEDS: TAMSULOSIN HCL 0.4 MG CAP PO SCH (08:19)
[2022-02-09] MEDS: ATORVASTATIN 20 MG TAB PO SCH (08:20)
[2022-02-09] MEDS: levETIRAcetam 500 MG TAB PO SCH ×2 (08:20→21:14)
[2022-02-09] MEDS: METOCLOPRAMIDE HCL 10 MG TABLET PO SCH ×4 (08:20→21:13)
[2022-02-09] MEDS: ENOXAPARIN INJ 40 MG/0.4 ML SYR SQ SCH (08:20)
[2022-02-09] MEDS: nadoloL 40 MG TAB PO SCH (08:20)
[2022-02-09] MEDS: FAMOTIDINE 40 MG TABLET PO SCH (08:20)
[2022-02-09] MEDS: CALCIUM 600MG + VIT D 400 IU TAB PO SCH (08:20)
[2022-02-09] MEDS: PANTOprazole 40 MG TAB PO SCH (08:20)
[2022-02-09] MEDS: HYDROCORTISONE 10 MG TAB PO SCH ×2 (08:20→13:34)
[2022-02-09] MEDS: SENNA 8.6 MG TAB PO SCH (10:13)
[2022-02-09] MEDS: POLYETHYLENE (MIRALAX) 17 GM PACK PO SCH (10:13)
--- NOTE | 2022-02-09 11:45 | Hospitalist Progress Note ---
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 Patient is admitted to telemetry for further evaluation. 1) Gastroenteritis 2) Pituitary macroadenoma with partial adrenal insufficiency Presented with nausea vomiting. Seen by endocrinology recently; underwent ACTH stimulation test which revealed partially adrenal insufficiency. Scheduled for resection of macroadenoma on 03/07. Plan; Advance diet to general. Decrease fluid rate to 75 cc/h. Continue on double home dose of hydrocortisone; 20 in the a.m. and 10 at lunch. PT OT evaluation. Patient not able to independently ambulate due to dizz iness. 3) COVID -Asymptomatic. Chest x-rayno acute abnormality Plan; -Monitor respiratory status. Oxygen as needed Chronic conditions: 4. History of Crohn's: Continue mesalamine. 5. History of seizure: Continue his Keppra. 6. History of benign prostatic hypertrophy: Continue his Flomax. 7. History of sleep apnea: On BiPAP at bedtime. 8. History of non-SVT: Continue nadolol. 9. History of tachybrady syndrome: Status post permanent pacemaker placement. 10. Peripheral neuropathy: On pregabalin. 11. Overactive bladder: Continue his home medications. 12. Depression: Duloxetine. 13. Hyperlipidemia: On statin. 14. Asthma: Home inhalers DVT- lovenox Diet- general Dispo- home pending medical improvement. Admission and Anticipated Discharge Date Admission Date: February 09, 2022 Subjective Patient seen and examined at bedside. He does not complain of any nausea or vomiting. He was able to tolerate liquid diet and breakfast. He continues to feel dizzy on standing up. He has not been able to go to the bathroom by himself. His appetite is better and wants to try regular food. Review of Systems Review of Systems: All systems reviewed & are unremarkable except as noted in Subjective Physical Exam Physical Exam: Gen: WD/WN, NAD, A&O x3 HEENT: Normocephalic, atraumatic, conjunctivae moist, sclerae anicteric, mucous membranes moist. Lung: Clear to Auscultation bilaterally, no wheezes/rales/rhonchi Heart: Regular rate, regular rhythm, no murmurs, rubs, or gallops Abdomen: Soft, NT, ND +BS x 4 Extremities: No edema Skin: Warm, no rash, negative turgor. Results & Data Results & Data ([facility]) Vital Signs (Past 12 Hours) Vital Signs Temp Pulse Pulse Resp BP Pulse Ox O2 Del Method 02/09/22 06:14 60 02/09/22 03:26 36.0 C L 60 15 100/66 94 BiPAP 02/09/22 03:17 60 16 97 02/09/22 01:09 60 O2 Flow Rate 02/09/22 06:14 02/09/22 03:26 02/09/22 03:17 2 02/09/22 01:09 COVID-19 Results Results COVID-19 Adm Lab Results: RBC 4.03 M/uL (4.63-6.08) L 02/09/22 WBC 4.30 K/ul (4.8-10.8) L 02/09/22 Hgb 11.9 g/dl (14.0-18.0) L 02/09/22 Hct 36.9 % (40.1-51.0) L 02/09/22 Plt Count 179 K/uL (130-400) 02/09/22 Neutrophils (%) (Auto) 61.2 % 02/08/22 Lymphocytes (%) (Auto) 27.7 % 02/08/22 Monocytes # (Auto) 0.57 K/uL (0.24-0.82) 02/08/22 Eosinophils # (Auto) 0.04 K/uL (0-0.50) 02/08/22 Immature Granulocyte % (Auto) 0.3 % 02/08/22 Neutrophils # (Auto) 3.55 K/uL (1.4-6.5) 02/08/22 Lymphocytes # (Auto) 1.61 K/uL (1.2-3.4) 02/08/22 Monocytes # (Auto) 0.57 K/uL (0.24-0.82) 02/08/22 Eosinophils # (Auto) 0.04 K/uL (0-0.50) 02/08/22 Basophils # (Auto) 0.02 K/uL (0-0.2) 02/08/22 Immature Granulocyte # (Auto) 0.02 K/uL (0.00-0.02) 2 Na 138 mmol/L (136-145) 02/09/22 K 3.7 mmol/L (3.5-5.1) 02/09/22 Cl 108 mmol/L (98-107) H 02/09/22 CO2 28 mmol/L (21-32) 02/09/22 Anion Gap 2 (3-11) L 02/09/22 BUN 13 mg/dl (6-23) 02/09/22 Creatinine 0.88 mg/dl (0.6-1.4) 02/09/22 BUN/Creatinine Ratio 14.8 (10-20) 02/09/22 Glucose Level 84 mg/dl (70-99(Fasting)) 02/09/22 Ca 8.3 mg/dl (8.5-10.1) L 02/09/22 Phosphorus Level 4.3 mg/dl (2.5-4.9) 02/08/22 Total Bilirubin 1.0 mg/dl (0.2-1.0) 02/07/22 AST/SGOT 20 U/L (13-39) 02/07/22 ALT/SGPT 19 U/L (7-52) 02/07/22 Alkaline Phosphatase 64 U/L (34-104) 02/07/22 Total Protein 7.2 gm/dl (6.0-8.3) 02/07/22 Albumin 4.5 gm/dl (3.4-5.0) 02/07/22 Globulin 2.7 gm/dl (2.5-4.0) 02/07/22 Albumin/Globulin Ratio 1.7 (0.9-2) 02/07/22 INR 1.0 (0.9-1.1) 02/07/22 COVID-19 PCR POSITIVE (Negative) A* 02/07/22 Influenza Virus Type A (PCR) Negative (Neg) 02/07/22 Influenza Virus Type B (PCR) Negative (Neg) 02/07/22 Chest X-Ray 02/07/22
[2022-02-09] MEDS: MONTELUKAST SODIUM 10 MG TABLET PO SCH (21:13)
[2022-02-10] MEDS: SODIUM CHLORIDE 0.9% 1000ML 1,000 ML IV SCH ×2 (03:12→14:08)
[2022-02-10] MEDS: FAMOTIDINE 40 MG TABLET PO SCH (08:27)
[2022-02-10] MEDS: METOCLOPRAMIDE HCL 10 MG TABLET PO SCH ×4 (08:27→20:16)
[2022-02-10] MEDS: PREGABALIN 150 MG CAP PO SCH ×2 (08:27→20:15)
[2022-02-10] MEDS: SENNA 8.6 MG TAB PO SCH (08:27)
[2022-02-10] MEDS: CALCIUM 600MG + VIT D 400 IU TAB PO SCH (08:28)
[2022-02-10] MEDS: PANTOprazole 40 MG TAB PO SCH (08:29)
[2022-02-10] MEDS: POTASSIUM CHLORIDE 10 MEQ TABCR PO SCH ×2 (08:29→20:16)
[2022-02-10] MEDS: DULoxetine HCL 60 MG CAP PO SCH (08:29)
[2022-02-10] MEDS: ATORVASTATIN 20 MG TAB PO SCH (08:29)
[2022-02-10] MEDS: ENOXAPARIN INJ 40 MG/0.4 ML SYR SQ SCH (08:30)
[2022-02-10] MEDS: CHOLECALCIFEROL 400 UNITS 10 MCG TAB PO SCH (08:30)
[2022-02-10] MEDS: ASPIRIN 81 MG ECTAB PO SCH (08:30)
[2022-02-10] MEDS: TAMSULOSIN HCL 0.4 MG CAP PO SCH (08:30)
[2022-02-10] MEDS: FLUTICASONE FUROATE 100MCG 14 PUFFS/INHALER INH SCH (08:31)
[2022-02-10] MEDS: POLYETHYLENE (MIRALAX) 17 GM PACK PO SCH (08:32)
[2022-02-10] MEDS: levETIRAcetam 500 MG TAB PO SCH ×2 (08:32→20:16)
[2022-02-10] MEDS: HYDROCORTISONE 10 MG TAB PO SCH ×2 (08:43→12:54)
[2022-02-10] MEDS: ACETAMINOPHEN 325 MG TAB PO PRN (09:27)
--- NOTE | 2022-02-10 11:29 | Hospitalist Progress Note ---
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 Patient is admitted to telemetry for further evaluation. 1) Gastroenteritis 2) Pituitary macroadenoma with partial adrenal insufficiency Presented with nausea vomiting. Seen by endocrinology recently; underwent ACTH stimulation test which revealed partially adrenal insufficiency. Scheduled for resection of macroadenoma on 03/07. Patient continues to have persistent dizziness and episode of hypotension. Plan; We will increase the fluid rate today to 125 cc/h. Triple home dose of hydrocortisone; 30 in the a.m. and 20 at lunch. R PT OT evaluation. Patient not able to independently ambulate due to dizziness. 3) COVID -Asymptomatic. Chest x-rayno acute abnormality Plan; -Monitor respiratory status. Oxygen as needed 4) Constipation-no bowel movement since 5 days. Bowel sounds present. We will add tapwater enema today. Chronic conditions: 5. History of Crohn's: Continue mesalamine. 6. History of seizure: Continue his Keppra. 7. History of benign prostatic hypertrophy: Continue his Flomax. 8. History of sleep apnea: On BiPAP at bedtime. 9. History of non-SVT: Continue nadolol. 10. History of tachybrady syndrome: Status post permanent pacemaker placement. 11. Peripheral neuropathy: On pregabalin. 12. Overactive bladder: Continue his home medications. 13. Depression: Duloxetine. 14. Hyperlipidemia: On statin. 15. Asthma: Home inhalers DVT- lovenox Diet- general Dispo- home pending medical improvement. Admission and Anticipated Discharge Date Admission Date: February 09, 2022 Subjective Patient continues to feel dizzy upon standing. Blood pressure was 90/60 at sitting and standing position. He has significant issues with ambulation due to dizziness. He has significant urine output of 2250 mL in last 24 hours. Review of Systems Review of Systems: All systems reviewed & are unremarkable except as noted in Subjective Physical Exam Physical Exam: Gen: WD/WN, NAD, A&O x3 HEENT: Normocephalic, atraumatic, conjunctivae moist, sclerae anicteric, mucous membranes moist. Lung: Clear to Auscultation bilaterally, no wheezes/rales/rhonchi Heart: Regular rate, regular rhythm, no murmurs, rubs, or gallops Abdomen: Soft, NT, ND +BS x 4 Extremities: No edema Skin: Warm, no rash, negative turgor. Results & Data Results & Data ([facility]) Vital Signs (Past 12 Hours) Vital Signs Temp Pulse Pulse Resp BP Pulse Ox O2 Del Method 02/10/22 07:56 61 18 113/73 95 BiPAP 02/10/22 06:02 61 02/10/22 02:50 36.5 C 63 20 118/78 96 BiPAP 02/10/22 02:46 62 22 97 02/10/22 01:36 61 O2 Flow Rate 02/10/22 07:56 02/10/22 06:02 02/10/22 02:50 02/10/22 02:46 2 02/10/22 01:36 COVID-19 Results Results COVID-19 Adm Lab Results: RBC 4.03 M/uL (4.63-6.08) L 02/09/22 WBC 4.30 K/ul (4.8-10.8) L 02/09/22 Hgb 11.9 g/dl (14.0-18.0) L 02/09/22 Hct 36.9 % (40.1-51.0) L 02/09/22 Plt Count 179 K/uL (130-400) 02/09/22 Neutrophils (%) (Auto) 61.2 % 02/08/22 Lymphocytes (%) (Auto) 27.7 % 02/08/22 Monocytes # (Auto) 0.57 K/uL (0.24-0.82) 02/08/22 Eosinophils # (Auto) 0.04 K/uL (0-0.50) 02/08/22 Immature Granulocyte % (Auto) 0.3 % 02/08/22 Neutrophils # (Auto) 3.55 K/uL (1.4-6.5) 02/08/22 Lymphocytes # (Auto) 1.61 K/uL (1.2-3.4) 02/08/22 Monocytes # (Auto) 0.57 K/uL (0.24-0.82) 02/08/22 Eosinophils # (Auto) 0.04 K/uL (0-0.50) 02/08/22 Basophils # (Auto) 0.02 K/uL (0-0.2) 02/08/22 Immature Granulocyte # (Auto) 0.02 K/uL (0.00-0.02) 2 Na 138 mmol/L (136-145) 02/09/22 K 3.7 mmol/L (3.5-5.1) 02/09/22 Cl 108 mmol/L (98-107) H 02/09/22 CO2 28 mmol/L (21-32) 02/09/22 Anion Gap 2 (3-11) L 02/09/22 BUN 13 mg/dl (6-23) 02/09/22 Creatinine 0.88 mg/dl (0.6-1.4) 02/09/22 BUN/Creatinine Ratio 14.8 (10-20) 02/09/22 Glucose Level 84 mg/dl (70-99(Fasting)) 02/09/22 Ca 8.3 mg/dl (8.5-10.1) L 02/09/22 Phosphorus Level 4.3 mg/dl (2.5-4.9) 02/08/22 Total Bilirubin 1.0 mg/dl (0.2-1.0) 02/07/22 AST/SGOT 20 U/L (13-39) 02/07/22 ALT/SGPT 19 U/L (7-52) 02/07/22 Alkaline Phosphatase 64 U/L (34-104) 02/07/22 Total Protein 7.2 gm/dl (6.0-8.3) 02/07/22 Albumin 4.5 gm/dl (3.4-5.0) 02/07/22 Globulin 2.7 gm/dl (2.5-4.0) 02/07/22 Albumin/Globulin Ratio 1.7 (0.9-2) 02/07/22 INR 1.0 (0.9-1.1) 02/07/22 COVID-19 PCR POSITIVE (Negative) A* 02/07/22 Influenza Virus Type A (PCR) Negative (Neg) 02/07/22 Influenza Virus Type B (PCR) Negative (Neg) 02/07/22 Chest X-Ray 02/07/22
--- NOTE | 2022-02-10 16:46 | Communication Note ---
Date of Service: February 10, 2022 Informed by the nurse that patient had infiltrated IV on his left arm. Patient was seen and evaluated bedside. Right arm and forearm swells from extending to the hand . He was complaining of numbness and tingling as in the finger but was able to move them; sensation is intact. IV line was already removed and hand was in elevated position. Radial pulse present. Ordered US venous duplex of the arm. Instructed to elevated the arm and continue to monitor.
--- NOTE | 2022-02-10 18:25 | Ultrasound Report ---
LEFT UPPER EXTREMITY VENOUS DOPPLER HISTORY: Swelling of left arm and forearm COMPARISON STUDY: None. FINDINGS: The left internal jugular vein is patent. There is normal flow within the left subclavian v ein. There is normal flow and compressibility within the left axillary, basilic, brachial, radial, ul gume, and visualized cephalic veins. IMPRESSION: No DVT within the left upper extremity. ACT 112: Negative or not required by law. Electronically signed by: Manish Sawant M.D. 02/10/2022 6:23 PM
[2022-02-10] MEDS: MONTELUKAST SODIUM 10 MG TABLET PO SCH (20:16)
[2022-02-11] MEDS: SODIUM CHLORIDE 0.9% 1000ML 1,000 ML IV SCH ×4 (02:35→20:30)
[2022-02-11 07:27] LABS: BUN Creatinine Ratio 9.9 (10-20); Calcium 8.6 mg/dl (8.5-10.1); Creatinine Clr Calc Pharmacy 93.9 ml/min; Est GFR (African American) 107.3 ml/min; Est GFR (Non-African American) 92.6 ml/min; Magnesium 1.7 mg/dl (1.7-2.4); Phosphorus 3.7 mg/dl (2.5-4.9); Potassium 3.4 mmol/L (3.5-5.1)
[2022-02-11] MEDS: POLYETHYLENE (MIRALAX) 17 GM PACK PO SCH (08:55)
[2022-02-11] MEDS: PREGABALIN 150 MG CAP PO SCH ×2 (08:56→20:22)
[2022-02-11] MEDS: ACETAMINOPHEN 325 MG TAB PO PRN (08:56)
[2022-02-11] MEDS: POTASSIUM CHLORIDE CRTAB 20 MEQ TABCR PO SCH ×2 (08:56→20:24)
[2022-02-11] MEDS: HYDROCORTISONE 10 MG TAB PO SCH ×2 (08:57→13:47)
[2022-02-11] MEDS: FLUTICASONE FUROATE 100MCG 14 PUFFS/INHALER INH SCH (08:57)
[2022-02-11] MEDS: levETIRAcetam 500 MG TAB PO SCH ×2 (08:57→20:25)
[2022-02-11] MEDS: TAMSULOSIN HCL 0.4 MG CAP PO SCH (08:57)
[2022-02-11] MEDS: PANTOprazole 40 MG TAB PO SCH (08:58)
[2022-02-11] MEDS: DULoxetine HCL 60 MG CAP PO SCH (08:58)
[2022-02-11] MEDS: CALCIUM 600MG + VIT D 400 IU TAB PO SCH (08:58)
[2022-02-11] MEDS: ASPIRIN 81 MG ECTAB PO SCH (08:58)
[2022-02-11] MEDS: ATORVASTATIN 20 MG TAB PO SCH (08:58)
[2022-02-11] MEDS: SENNA 8.6 MG TAB PO SCH (08:58)
[2022-02-11] MEDS: FAMOTIDINE 40 MG TABLET PO SCH (08:58)
[2022-02-11] MEDS: CHOLECALCIFEROL 400 UNITS 10 MCG TAB PO SCH (08:58)
[2022-02-11] MEDS: METOCLOPRAMIDE HCL 10 MG TABLET PO SCH ×4 (08:59→20:22)
[2022-02-11] MEDS: ENOXAPARIN INJ 40 MG/0.4 ML SYR SQ SCH (08:59)
[2022-02-11] MEDS ORDERED: POTASSIUM CHLORIDE CRTAB 20 MEQ TABCR PO STA (13:40)
--- NOTE | 2022-02-11 13:55 | Hospitalist Progress Note ---
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 Patient is admitted to telemetry for further evaluation. 1) Gastroenteritis 2) Pituitary macroadenoma with partial adrenal insufficiency Presented with nausea vomiting. Seen by endocrinology recently; underwent ACTH stimulation test which revealed partially adrenal insufficiency. Scheduled for resection of macroadenoma on 03/07. Patient continues to have persistent dizziness Plan; Continue fluid rate today to 125 cc/h. Triple home dose of hydrocortisone; 30 in the a.m. and 20 at lunch. Discussed with his nurse head (Dr. Byrne). She recommended to continue with the triple dose till the patient's symptoms have resolved and go back to home dosing. PT OT evaluation. Patient not able to independently ambulate due to dizziness. 3) COVID -Asymptomatic. Chest x-rayno acute abnormality Plan; -Monitor respiratory status. Oxygen as needed 4) Constipation-had bowel movement on 02/10 5) left arm swelling-due to infiltrated IV; IV removed on 02/10. US duplex test no DVT. Keep the arm elevated. Chronic conditions: 5. History of Crohn's: Continue mesalamine. 6. History of seizure: Continue his Keppra. 7. History of benign prostatic hypertrophy: Continue his Flomax. 8. History of sleep apnea: On BiPAP at bedtime. 9. History of non-SVT: Continue nadolol. 10. History of tachybrady syndrome: Status post permanent pacemaker placement. 11. Peripheral neuropathy: On pregabalin. 12. Overactive bladder: Continue his home medications. Stoner in place as patient is unable to self catheterize. Will remove Stoner after swelling has decreased. 13. Depression: Duloxetine. 14. Hyperlipidemia: On statin. 15. Asthma: Home inhalers DVT- lovenox Diet- general Dispo- home pending medical improvement. Admission and Anticipated Discharge Date Admission Date: February 09, 2022 Subjective Patient seen and examined at bedside. He feels that his left arm is much better compared to yesterday; swelling has gone down significantly and he is experiencing less pain. He is able to move his hand and fingers as well. Patient used to do self-catheterization at home. He was unable to self catheterize because of his arm yesterday; Stoner was placed. Stoner is draining clear urine. He continues to feel dizzy upon standing. Blood pressure overall has improved. Review of Systems Review of Systems: All systems reviewed & are unremarkable except as noted in Subjective Physical Exam Physical Exam: Gen: WD/WN, NAD, A&O x3 HEENT: Normocephalic, atraumatic, conjunctivae moist, sclerae anicteric, mucous membranes moist. Lung: Clear to Auscultation bilaterally, no wheezes/rales/rhonchi Heart: Regular rate, regular rhythm, no murmurs, rubs, or gallops Abdomen: Soft, NT, ND +BS x 4 Extremities: No edema Skin: Warm, no rash, negative turgor. Results & Data Results & Data ([facility]) Vital Signs (Past 12 Hours) Vital Signs Temp Pulse Pulse Resp BP BP Pulse Ox 02/11/22 12:04 36.6 C 61 16 101/67 94 02/11/22 11:13 96 02/11/22 09:06 37.0 C 60 14 121/78 95 02/11/22 07:23 60 02/11/22 03:31 63 16 93 02/11/22 02:32 36.8 C 60 18 131/84 95 O2 Del Method O2 Flow Rate 02/11/22 12:04 Room Air 02/11/22 11:13 02/11/22 09:06 Room Air 02/11/22 07:23 02/11/22 03:31 2 02/11/22 02:32 CPAP COVID-19 Results Results COVID-19 Adm Lab Results: RBC 4.03 M/uL (4.63-6.08) L 02/09/22 WBC 4.30 K/ul (4.8-10.8) L 02/09/22 Hgb 11.9 g/dl (14.0-18.0) L 02/09/22 Hct 36.9 % (40.1-51.0) L 02/09/22 Plt Count 179 K/uL (130-400) 02/09/22 Neutrophils (%) (Auto) 61.2 % 02/08/22 Lymphocytes (%) (Auto) 27.7 % 02/08/22 Monocytes # (Auto) 0.57 K/uL (0.24-0.82) 02/08/22 Eosinophils # (Auto) 0.04 K/uL (0-0.50) 02/08/22 Immature Granulocyte % (Auto) 0.3 % 02/08/22 Neutrophils # (Auto) 3.55 K/uL (1.4-6.5) 02/08/22 Lymphocytes # (Auto) 1.61 K/uL (1.2-3.4) 02/08/22 Monocytes # (Auto) 0.57 K/uL (0.24-0.82) 02/08/22 Eosinophils # (Auto) 0.04 K/uL (0-0.50) 02/08/22 Basophils # (Auto) 0.02 K/uL (0-0.2) 02/08/22 Immature Granulocyte # (Auto) 0.02 K/uL (0.00-0.02) 2 Na 140 mmol/L (136-145) 02/11/22 K 3.4 mmol/L (3.5-5.1) L 02/11/22 Cl 105 mmol/L (98-107) 02/11/22 CO2 31 mmol/L (21-32) 02/11/22 Anion Gap 4 (3-11) 02/11/22 BUN 8 mg/dl (6-23) 02/11/22 Creatinine 0.81 mg/dl (0.6-1.4) 02/11/22 BUN/Creatinine Ratio 9.9 (10-20) L 02/11/22 Glucose Level 82 mg/dl (70-99(Fasting)) 02/11/22 Ca 8.6 mg/dl (8.5-10.1) 02/11/22 Phosphorus Level 3.7 mg/dl (2.5-4.9) 02/11/22 Total Bilirubin 1.0 mg/dl (0.2-1.0) 02/07/22 AST/SGOT 20 U/L (13-39) 02/07/22 ALT/SGPT 19 U/L (7-52) 02/07/22 Alkaline Phosphatase 64 U/L (34-104) 02/07/22 Total Protein 7.2 gm/dl (6.0-8.3) 02/07/22 Albumin 4.5 gm/dl (3.4-5.0) 02/07/22 Globulin 2.7 gm/dl (2.5-4.0) 02/07/22 Albumin/Globulin Ratio 1.7 (0.9-2) 02/07/22 INR 1.0 (0.9-1.1) 02/07/22 COVID-19 PCR POSITIVE (Negative) A* 02/07/22 Influenza Virus Type A (PCR) Negative (Neg) 02/07/22 Influenza Virus Type B (PCR) Negative (Neg) 02/07/22 Chest X-Ray 02/07/22
[2022-02-11] MEDS: MONTELUKAST SODIUM 10 MG TABLET PO SCH (20:26)
[2022-02-12] MEDS: SODIUM CHLORIDE 0.9% 1000ML 1,000 ML IV SCH (05:10)
[2022-02-12 07:21] LABS: Hematocrit (blood only) 31.8 % (40.1-51.0); Hemoglobin 10.5 g/dl (14.0-18.0); Mean Corpuscular Hemoglobin 29.5 pg (25.0-34.0); Mean Corpuscular Volume 89.3 fL (80.0-100.0); Mean Platelet Volume 11.4 fL (9.4-12.4); Platelet Count 157 K/uL (130-400); RDW Coefficient of Variation 12.4 % (11.5-14.5); Red Blood Count 3.56 M/uL (4.63-6.08); White Blood Count 4.61 K/ul (4.8-10.8)
[2022-02-12 07:41] LABS: BUN Creatinine Ratio 10.8 (10-20); Calcium 6.8 mg/dl (8.5-10.1); Creatinine Clr Calc Pharmacy 102.7 ml/min; Est GFR (African American) 111.4 ml/min; Est GFR (Non-African American) 96.1 ml/min; Potassium 3.1 mmol/L (3.5-5.1)
[2022-02-12] MEDS: PREGABALIN 150 MG CAP PO SCH (08:03)
[2022-02-12] MEDS: PANTOprazole 40 MG TAB PO SCH (08:04)
[2022-02-12] MEDS: POTASSIUM CHLORIDE CRTAB 20 MEQ TABCR PO SCH (08:04)
[2022-02-12] MEDS: POLYETHYLENE (MIRALAX) 17 GM PACK PO SCH (08:04)
[2022-02-12] MEDS: FAMOTIDINE 40 MG TABLET PO SCH (08:05)
[2022-02-12] MEDS: CALCIUM 600MG + VIT D 400 IU TAB PO SCH (08:05)
[2022-02-12] MEDS: HYDROCORTISONE 10 MG TAB PO SCH ×2 (08:07→12:06)
[2022-02-12] MEDS: CHOLECALCIFEROL 400 UNITS 10 MCG TAB PO SCH (08:08)
[2022-02-12] MEDS: ASPIRIN 81 MG ECTAB PO SCH (08:08)
[2022-02-12] MEDS: levETIRAcetam 500 MG TAB PO SCH (08:09)
[2022-02-12] MEDS: TAMSULOSIN HCL 0.4 MG CAP PO SCH (08:09)
[2022-02-12] MEDS: ATORVASTATIN 20 MG TAB PO SCH (08:09)
[2022-02-12] MEDS: DULoxetine HCL 60 MG CAP PO SCH (08:09)
[2022-02-12] MEDS: SENNA 8.6 MG TAB PO SCH (08:10)
[2022-02-12] MEDS: FLUTICASONE FUROATE 100MCG 14 PUFFS/INHALER INH SCH (08:10)
[2022-02-12] MEDS: METOCLOPRAMIDE HCL 10 MG TABLET PO SCH ×2 (08:10→12:06)
[2022-02-12] MEDS: ENOXAPARIN INJ 40 MG/0.4 ML SYR SQ SCH (08:11)
[2022-02-12 08:18] VITALS: BP 107/73; TEMP 97.7; O2SAT 94
[2022-02-12] MEDS ORDERED: POTASSIUM CHLORIDE CRTAB 20 MEQ TABCR PO STA (10:20)
[2022-02-12 10:45] VITALS: PULSE 61
--- NOTE | 2022-02-12 15:28 | Discharge Summary ---
Date of Service February 12, 2022 Admission HPI Per Admitting Provider A 67-year-old male with past medical history significant for asthma, obstructive sleep apnea, on BiPAP, pituitary macroadenoma, history of tachybrady syndrome, status post pacemaker placement, history of Crohn's disease, seizure disorder, history of nonsustained ventricular tachycardia. AV maureen reentry tachycardia, GERD, overactive bladder, BPH, peripheral neuropathy, elevated prolactin level, psychosocial stressors. Presents with nausea and vomiting starting today and felt some tingliness in the arms and also is having diarrhea for about a week. He gets cough on and off since he was diagnosed with COVID at the end of August and also on and off shortness of breath. When he came in, he also had chest pain, that is all resolved now. His COVID came back positive, but he was not recently outside. He had been to [place] at end of August and September at which time he was diagnosed with COVID. He was also here admitted with COVID in November of this year and received steroids. There is a plan for surgery for his pituitary macroadenoma on 03/07/2022. His main symptom is blurred visions, which happened today and also right hand tingling, but CAT scan is showing no change in his pituitary macroadenoma. Currently resting comfortably and hemodynamically stable. No headache. Has some sore throat from nausea, vomiting. Currently, no chest pain. Has lower abdominal pain, watery stools. Because of BPH, he also has some difficulty urinating. No swelling in the legs. Admission Exam Per Admitting Provider GENERAL: The patient is of moderate build, not in acute distress. VITAL SIGNS: Temperature 36.6, pulse 68, respiratory rate 20, blood pressure 145/77, oxygen 98% on room air. HEENT: Pupils equal, round and reactive to light. Oral mucosa moist. NECK: No JVD, no neck masses. CARDIOVASCULAR: S1 and S2 heard. Regular rate and rhythm. No murmur, no gallop. RESPIRATORY SYSTEM: Normal AP diameter. No accessory muscle use. No wheezing, no crackles. ABDOMEN: Soft, bowel sounds present, nontender, no distention. CENTRAL NERVOUS SYSTEM: Alert and oriented. Cranial nerves II through XII grossly intact, nonfocal. EXTREMITIES: No edema, no erythema. Principal Diagnosis 1) Gastroenteritis 2) Pituitary Macroadenoma with partial adrenal insufficiency 3) Covid infection Discharge Exam Gen: WD/WN, NAD, A&O x3 HEENT: Normocephalic, atraumatic, conjunctivae moist, sclerae anicteric, mucous membranes moist. Lung: Clear to Auscultation bilaterally, no wheezes/rales/rhonchi Heart: Regular rate, regular rhythm, no murmurs, rubs, or gallops Abdomen: Soft, NT, ND +BS x 4 Extremities: No edema Skin: Warm, no rash, negative turgor. Discharge Data Allergies Allergy/AdvReac Type Severity Reaction Status Date / Time codeine Allergy Unknown UNSURE Verified 02/07/22 21:15 REACTION - HAPPENED A CHILD Sulfa (Sulfonamide Allergy Swelling Unverified 02/07/22 21:15 Antibiotics) of Lip/Tongue/Throat Consultations 02/07/22 22:25 ED Decision to Admit Stat Ordered Studies 02/07/22 18:00 CT Abd and Pelvis [CT abd pelvis IV con only] Stat CT head/brain wo/w con Stat 02/10/22 13:42 US venous doppler UE LT Routine Hospital Course (1) Gastroenteritis: (2) Adrenal insufficiency: (3) Pituitary macroadenoma: (4) COVID: Plan A 67-year-old male with past medical history significant for Pituitary macroadenoma with partial adrenal insufficiency, asthma, obstructive sleep apnea, on BiPAP, history of tachybrady syndrome, status post pacemaker placement, history of Crohn's disease, seizure disorder, history of nonsustained ventricular tachycardia. AV maureen reentry tachycardia, GERD, overactive bladder, BPH, peripheral neuropathy presented to the ED with complaint of nausea vomiting and diarrhea for a week. CT head was done which didn't show any acute abnormality. He was admitted to telemetry floor for further evaluation. He was on 10 mg of hydrocortisone in a.m. and 5 mg of hydrocortisone at lunch for partial adrenal insufficiency prior to admission.. His dose was doubled as recommended by his infusion rn on admission Patient was also treated with IV hydration. Patient continued to have symptoms of dizziness for which his dose of hydrocortisone was tripled. PT OT evaluation was done. Patient's symptoms gradually improved over the course of the stay. He was discharged home with home OT. He was instructed to follow-up with his PCP and infusion rn Total Time Total Time Spent Total Time Spent (In Minutes): 35 Total Time Includes: Examination of the Patient, Discharge Planning, Medication Reconciliation, Communication With Other Providers and Other Discharge Plan Discharge Items Patient Disposition: Home - Home Health Services Reason For Visit: N/V Discharge Diagnosis: 1) Gastroenteritis 2) Pituitary macroadenoma with partial adrenal insuffiency 3) Covid, Symptomatic Activity: Resume your previous activity Non-emergency contact: Primary Care Provider Call non-emergency contact if: you have any medication questions Follow-up/Referrals: Bandar Bailon, [Primary Care Provider] - (Date & Time 02/14/2022 10:00 AM Provider Ellie Parish MD Department Family [facility] ) Diet: Regular Addtl Attending Provider Instructions: We are increasing your dose of hydrocortisone to 20 mg (4 tablets of 5 mg) in the morning and 10 mg (2 tablets of 5mg) at lunch for the next 3 days. After that, he can go back to your previous dosing of 10 mg ( 2 tablets of 5mg) in the morning and 5 mg at lunch. Prescription has been sent to your pharmacy. I am also prescribing you a potassium supplement; take 1 tablet once a day. Please call your infusion rn if you experience symptoms of nausea, vomiting or dizziness. Please go to your appointment for surgery on March 07. Follow-up with your PCP. Pending Studies at Discharge: No Stand-Alone Forms: My [facility] PF Changs, Smoking Cessation Medications and DC Order Prescriptions: New potassium chloride 20 mEq Tablet,Er Particles/Crystals 20 meq PO DAILY Qty: 30 0RF hydrocortisone 5 mg tablet 20 mg PO .am 3 Days Qty: 12 0RF hydrocortisone 5 mg tablet 10 mg PO .lunch 3 Days Qty: 10 0RF Continued hydrocortisone 5 mg tablet 5 mg PO .2HRS AFTER LUNCH Rx Instructions: Extra pills for sick days hydrocortisone 5 mg tablet 10 mg PO QAM atorvastatin 20 mg tablet 20 mg PO QAM albuterol sulfate 2.5 mg /3 mL (0.083 %) Solution For Nebulization 2.5 mg INHALATION Q4H PRN (Reason: Shortness Of Breath Or Wheezing) levetiracetam 500 mg tablet 500 mg PO BID famotidine 40 mg Tablet 40 mg PO DAILY cosyntropin 0.25 mg Recon Soln 0.25 mg IM DIRECTED PRN (Reason: PRN) calcium carbonate-vitamin D3 600 mg-5 mcg (200 unit) Tablet 2 tab PO DAILY omeprazole 40 mg Capsule,Delayed Release(Dr/Ec) 40 mg PO DAILY Solu-Cortef 100 mg recon soln 100 mg IM DIRECTED Rx Instructions: Use in emergency adrenal crisis tamsulosin 0.4 mg capsule 0.4 mg PO QAM cyanocobalamin (vitamin B-12) 1,000 mcg/mL solution 1,000 mcg IM MO aspirin 81 mg Tablet,Chewable 81 mg PO DAILY nadolol 40 mg tablet 40 mg PO QAM montelukast 10 mg Tablet 10 mg PO HS albuterol sulfate 90 mcg/actuation HFA aerosol inhaler 2 puff INHALATION Q6 PRN (Reason: Wheezing) cholecalciferol (vitamin D3) [Vitamin D3] 10 mcg (400 unit) Tablet 20 mcg PO DAILY dicyclomine 10 mg capsule 10 mg PO BID PRN (Reason: CRAMPING) metoclopramide HCl 10 mg tablet 10 mg PO .QID UD Rx Instructions: TAKE 1 TAB IN AM, 1 TAB @NOON, 1 TAB IN PM & 1 TAB BEFORE HS cyclosporine [Restasis] 0.05 % dropperette 1 drp OPB AMHS duloxetine 60 mg capsule,delayed release(DR/EC) 60 mg PO QAM solifenacin 10 mg tablet 10 mg PO QAM pregabalin 150 mg capsule 150 mg PO BID Rx Instructions: PER DR IST mesalamine 1.2 gram tablet,delayed release (DR/EC) 4.8 g PO DAILY Arnuity Ellipta 100 mcg/actuation Blister With Device 1 inh INHALATION DAILY Discontinued potassium chloride 10 mEq capsule, extended release 10 meq PO AMHS Discharge Orders: Discharge Order (Routine); Ordered 02/12/22 Ordered By: Pito Levin Admission Data Admit Date/Time: 02/09/22 11:20 Attending Provider: Pito Levin Admit Provider: Inder Vo Primary Care Provider: Bandar Bailon Other Providers: Inder Vo ; Raheel Godoy ; [facility] Other Interventions: Discharge Summary Assessment (RN) Last Done: 02/12/22 10:44
--- NOTE | 2022-02-20 10:10 | Coding Query ---
CODING QUERY To promote full compliance with coding requirements relating to patient care, provider participation is requested in all cases of licensed plumber uncertainty. Please assist us with the question(s) below: Coding Question(s): Patient admitted with nausea/vomiting - gastroenteritis. Please document, if known or suspected, the etiology of the gastroenteritis. Thank you. Paolo Reynoso [facility] Physician's Response(s): It is of unknown etiology. Principal Diagnosis: "that condition established after study, to be chiefly responsible for occasioning the admission of the patient to the hospital for care." Co-Existing Principal Diagnosis: "when two or more diagnoses equally meet the criteria for principal diagnosis as determined by the circumstances of admission, diagnostic work up, and/or therapy provided, and the Alphabetic Index, Tabular List, or another coding guideline does not provide sequencing direction, any one of the diagnoses may be sequenced first." "When the physician has documented what appears to be a current diagnosis in the body of the record, but has not included the diagnosis in the final diagnostic statement, the physician should be asked whether the diagnosis should be added." (Source Coding Clinic 2 QTR90. p3-4) ZAIN
== END 2022-02-12 14:25 | disposition home health service (06) | DRG 391 ==
LOC: ED 16:10 → 2N 16:10 → SUATTDRO 02-08 01:10 → 2N 02-08 03:50
DX: Z83.3 Family history of diabetes mellitus; K52.9 Noninfective gastroenteritis and colitis, unspecified; J45.909 Unspecified asthma, uncomplicated; Z88.5 Allergy status to narcotic agent; Z79.82 Long term (current) use of aspirin; G62.9 Polyneuropathy, unspecified; K50.90 Crohn's disease, unspecified, without complications; E27.40 Unspecified adrenocortical insufficiency; F17.200 Nicotine dependence, unspecified, uncomplicated; Z88.2 Allergy status to sulfonamides; U07.1 COVID-19; Z28.311 Partially vaccinated for COVID-19; K21.9 Gastro-esophageal reflux disease without esophagitis; G40.909 Epilepsy, unspecified, not intractable, without status epilepticus; G47.33 Obstructive sleep apnea (adult) (pediatric)

== ENCOUNTER 2024-05-10 05:30 | Observation (INO) ==
--- NOTE | 2024-05-05 09:23 | Anesthesiology Consultation ---
Date of Service May 05, 2024 Assessment & Plan (1) Encounter for pre-operative examination: - Infectious disease screening: Per assessment on 05/04/24- No known recent infectious disease contacts or current infectious disease symptoms. - Cardiology visit (12/09/2023): "Pt returns to EP for 6 month f/u due to TBS s/p ppm.. He is doing well from a cardiac perspective but is struggling with back pain which he might get a spinal cord stimulator for He continues to work at [employer].. Most recent device check showed no arrhythmias, but in the past he has had some NSVT.. No change in cardiac medications today.. Continue with routine device checks.. He is at an acceptable moderate cardiovascular risk for having a spinal cord stimulator placed and he can have the stimulator with his ppm.. EP f/u 1 year" - PCP visit (03/15/24): "Pre-operative evaluation for:inguinal hernia repair.. Pt Has revised cardiac index score of 2 risk factors2.4%.." Note sent from PCP to pulmonary and cardiology for preop comment. - Pulmonary note (03/15/24): "Patient is cleared for proposed surgical intervention from pulmonary standpoint, with low to moderate risk for c ardiopulmonary complications. Benefit outweighs the risk." - Cardiology note (03/19/24)": "Optimized from a cardiac standpoint and cleared to undergo procedure. No additional cardiac workup is necessary." - Hx adrenal insufficiency/Castro's disease: Taking prednisone 20mg QAM + hydrocortisone 10mg QAM/5mg with lunch/20mg HS + Solu-Cortef 100mg IM PRN adrenal crisis Chart Review Chart Review: Acceptable Risk for Surgery and Patient NOT seen in Pre Admission Testing History Surgery Operation Date: 05/10/24 07:15 Proposed Procedures p Open Repair Left Inginal Hernia Repair with Mesh - Khalif Wall MD Height/Weight Height: 5 ft 6 in Weight: 83.915 kg Allergies Allergy/AdvReac Type Severity Reaction Status Date / Time Sulfa (Sulfonamide Allergy Severe Swelling Verified 05/04/24 15:35 Antibiotics) of Lip/Tongue/Throat, SOB codeine Allergy Unknown Unknown Verified 05/04/24 15:35 Medications Home Medications Medication Instructions Recorded Confirmed Last Taken albuterol sulfate 2.5 mg/3 mL 2.5 mg inhalation Q4H PRN 08/18/22 11/12/24 11/27/22 (0.083 %) solution for nebulization Shortness Of Breath Or Wheezing albuterol sulfate 90 mcg/actuation 2 puff inhalation Q6 PRN Wheezing 02/07/22 05/04/24 05/19/22 aerosol inhaler aspirin 81 mg chewable tablet 81 mg PO QAM 02/07/22 05/04/24 01/31/23 atorvastatin 20 mg tablet (Lipitor) 20 mg PO QAM 02/07/22 05/04/24 01/31/23 calcium 600 mg (as 2 tab PO QAM 02/07/22 05/04/24 01/31/23 carbonate)-vitamin D3 5 mcg (200 unit) tablet cholecalciferol (vitamin D3) 10 20 mcg PO QAM 02/07/22 05/04/24 01/31/23 mcg (400 unit) tablet (Vitamin D3) cyanocobalamin (vitamin B-12) 1,000 mcg IM MONTHLY 02/07/22 05/04/24 05/04/24 1,000 mcg/mL injection solution cyclosporine 0.05 % eye drops in a 1 drp OPB AMHS 02/07/22 05/04/24 01/31/23 08:00 dropperette (Restasis) dicyclomine 10 mg capsule 10 mg PO BID PRN CRAMPING 02/07/22 05/04/24 05/20/22 duloxetine 60 mg capsule,delayed 60 mg PO QAM 02/07/22 05/04/24 01/31/23 release (Cymbalta) famotidine 40 mg tablet 40 mg PO QAM 02/07/22 05/04/24 01/31/23 hydrocortisone 5 mg tablet See Rx Instructions .Route .COMPLEX 02/07/22 05/04/24 01/31/23 08:00 hydrocortisone sod succinate 100 100 mg IM DIRECTED PRN ADRENAL 02/07/22 05/04/24 Unknown mg solution for injection CRISIS (Solu-Cortef) levetiracetam 500 mg tablet 500 mg PO BID 02/07/22 05/04/24 01/31/23 08:00 (Keppra) metoclopramide HCl 10 mg tablet 10 mg PO ACHS 02/07/22 05/04/24 01/31/23 (Reglan) montelukast 10 mg tablet 10 mg PO HS 02/07/22 05/04/24 01/30/23 (Singulair) nadolol 40 mg tablet (Corgard) 40 mg PO QAM 02/07/22 05/04/24 01/31/23 omeprazole 40 mg capsule,delayed 40 mg PO QAM 02/07/22 05/04/24 01/31/23 release pregabalin 150 mg capsule (Lyrica) See Rx Instructions .Route .COMPLEX 02/07/22 05/04/24 01/31/23 08:00 diclofenac sodium 50 mg 50 mg PO BID 01/31/23 05/04/24 01/31/23 08:00 tablet,delayed release potassium chloride 10 mEq 10 meq PO BID 01/31/23 05/04/24 01/31/23 08:00 capsule,extended release ropinirole 0.5 mg tablet 0.5 mg PO HS 01/31/23 05/04/24 01/30/23 fluticasone fur. 200 mcg-umeclid 1 inh inhalation QAM 05/04/24 05/04/24 Unknown 62.5 mcg-vilant 25 mcg inhalat.powder (Trelegy Ellipta) mesalamine 1.2 gram tablet,delayed 2.4 g PO QAM 05/04/24 05/04/24 Unknown release (Lialda) prednisone 20 mg tablet 20 mg PO QAM 05/04/24 05/04/24 Unknown Past Medical History Medical History Castro's disease Asthma, mild persistent BPH (benign prostatic hyperplasia) Crohn's disease Degenerative disc disease Epidural injections/denervation done in past Future SCS placement planned Dry eye syndrome Gastroparesis Per records GERD (gastroesophageal reflux disease) History of COVID-19 Multiple Most recent 12/2023 - treated at [facility] inpatient Hx of small bowel obstruction Neuropathy NSVT (nonsustained ventricular tachycardia) Pacemaker - [facility] Dr Sy Osteoarthritis Overactive thyroid gland Radiation Therapy - no meds Pacemaker Med[employer]onic 12/[address] Sy Pituitary macroadenoma Restless leg syndrome Seizure Last seizure ~ Follows with [facility] Neurology Sleep apnea BiPAP (intermittent use) Tachy-dell syndrome s/p PPM - [facility] Dr Sy Transient ischemic attack (TIA) Multiple Past Family History Family History Mother Family history of diabetes mellitus Father History of colon resection Brother History of colon resection Other No family history of adverse response to anesthesia Past Surgical History Surgical History H/O endoscopic sinus surgery pt states, "having procedure this week at [facility]. they'll take a scope and scrape it." History of anesthesia reaction "Slow to under and slow to wake up" History of appendectomy History of cataract surgery Bilateral History of surgical removal of pituitary gland Patient unsure if partial or total (2021) History of tooth extraction Hx of colonoscopy Hx of esophagogastroduodenoscopy Hx of hernia repair PONV (postoperative nausea and vomiting) Social History Smoking Status: Never smoker Do You Dip or Chew Tobacco: No Hx Alcohol Use: Yes Alcohol type: beer, wine and hard liquor alcohol intake frequency: a few times a week Hx Substance Use: No substance use type: does not use Substance Use Type Other:: "Marijuana candy" Last Used Substance: Days (ago) Last Used Substance Other:: ~6 months ago. Testing Laboratory Results 04/21/24 WBC 4.99 H/H 14.6/45.7 PLATELETS 214 SODIUM 142 POTASSIUM 4.0 CHLORIDE 102 CO2 30 BUN 13 CREATININE 0.9 GLUCOSE 89 Electrocardiogram Date: 02/26/24 Atrial paced, ventricular sensed rhythm. 61 bpm. LAD. RBBB. High QRS voltage may be normal variant or due to LVE. No significant change compared to 12/31/2023 per roving department supervisor comparison. Chest X-Ray Date: 03/17/24 Left-sided dual Lead cardiac pacer is stable. Pacer leads extend into the right atrium and right ventricle. Mild bibasilar atelectasis or scarring. No pleural effusion or pneumothorax. Echocardiogram Date: 01/13/23 LVEF 60 to 64%. Mildly increased concentric LV wall thickness. LV wall motion is normal. Moderately enlarged left atrium. Mild MR/TR. Borderline enlarged aortic root. Grade 2 diastolic dysfunction. No significant change compared to 10/10/2020 per report. Stress Test Date: 02/11/23 Type: nuclear Gated SPECT imaging reveals normal myocardial thickening and wall motion. LVEF greater than 65%. Lexiscan nuclear cardiac stress test negative for ischemia. Other Testing Pacer check Date: 12/18/23 Mode AAIR <=> DDDR. Battery longevity 7.4 years. BI TESTER 8.1%. AP 94.5%
--- OUTSIDE RECORDS SUMMARY | 2024-05-10 05:39 | External Medical Summary | Summary of Care ---
Author Name Unknown Organization [facility] Address [address] [place] [address] Phone [phone] Care Team Providers Care Dispatcher Radio Name Role Phone Bandar Bailon DO Primary Care Provider Reason for Referral * Precert (Within 10 days (routine)) - Pending Review Specialty Diagnoses / Procedures Referred By Luz castillo Referred To Contact Radiology Diagnoses Pituitary macroadenoma (HCC) S/P transsphenoidal hypophysectomy (HCC) Secondary adrenal insufficiency (HCC) Procedures MRI SELLA TURCICA W WO CONTRAST Sujit Shaikh PA-C [address] [place] [address] Phone: tel: fax: Referral ID Status Reason Start Date Expiration Date V isits Requested Visits Authorized [id number] Pending Review 02/21/[phone] Reason for Visit * Precert (Within 10 days (routine)) - Pending Review Specialty Diagnoses / Procedures Referred By Luz castillo Referred To Contact Radiology Diagnoses Pituitary macroadenoma (HCC) S/P transsphenoidal hypophysectomy (HCC) Secondary adrenal insufficiency (HCC) Procedures MRI SELLA [place]URC[place] W WO CONTRAST Sujit Shaikh PA-C [address] [place] [address] Phone: tel: fax: Referral ID Status Reason Start Date Expiration Date V isits Requested Visits Authorized [id number] Pending Review 02/21/[phone] Encounter Details Date Type Department Care Team (Latest Contact Info) Description 05/05/2024 8:37 AM EST - 05/05/2024 11:59 PM EST Hospital Encounter [facility], [place] [address] [place] [address] Arrived Discharge Disposition: Home - Self Care Allergies Active Allergy Reactions Criticality Noted Date Comments Sulfamethoxazole-Trimet hoprim Itching 07/16/2021 Pt noted total body itching within one hour of first dose. Took benedryl and inhaler and stopped med. Codeine Other (Please comment) Medium 04/23/2017 Allergic reaction Other reaction(s): UNSURE REACTION - HAPPENED A CHILD Sulfa Antibiotics High 05/22/2022 Other reaction(s): Swelling of Lip/Tongue/Throat documented as of this encounter (statuses as of 05/06/2024) Medications OXYGEN oxygen at 2 lpm via NC during all periods of sleep 1 Each 0 09/27/19 15 Active Aspirin 81 MG Oral Tablet Chewable Take 1 Tablet by mouth in the morning. 34 Tab 11 09/27/19 21 Active BiPAP every night at bedtime. Active Hydrocortisone Na Succinate PF 100 MG Injection Solution Reconstituted (Solu-Cortef) Use in emergency-adrenal crisis ACT O VIAL 2 mL 6 01/30/20 22 Active Calcium Carb-Cholecalcife rol 600-200 MG-UNIT Oral Tablet Take by mouth 2 Tablets in the morning. 180 Tablet 3 04/04/20 22 Active Diathrive Pen Needle 31G X 8 MM (Insulin Pen Needle)Indication s:B12 deficiency Use for b-12 injections once monthly as indicated. 30 Each 3 06/06/20 22 Active Tobramycin Powder Compounded tobramycin 40mg capsules to be added to sinus rinse twice daily. Dispense 180 of each (=3 months supply). [facility] [address], [address], [place] [address]. 1 g 09/13/19 23 Active Mupirocin 2 % External Ointment (Bactroban) Apply to affected toenail sites once daily. Cover with dry bandage. 22 g 3 3:52 PM EDT 11/14/19 23 Active Atorvastatin Calcium 20 MG Oral Tablet (Lipitor) TAKE 1 TABLET BY MOUTH IN THE MORNING 90 Tablet 1 4 5:31 PM EDT 03/13/20 23 Active Restasis 0.05 % Ophthalmic EmulsionIndicatio ns:Pituitary macroadenoma (HCC) Instill 1 Drop into both eyes in the morning and 1 Drop before bedtime. 180 Each 3 3 6:50 AM EDT 03/13/20 23 Active levETIRAcetam 500 MG Oral Tablet (Keppra) Take 1 Tablet by mouth in the morning and 1 Tablet before bedtime. 180 Tablet 1 4 2:29 PM EDT 03/14/20 23 Active Montelukast Sodium 10 MG Oral Tablet (Singulair)Indica tions:Mild persistent asthma without complication Take 1 Tablet by mouth at bedtime. 90 Tablet 3 3 6:50 AM EDT 03/13/20 23 Active Vitamin D3 20 MCG (800 UNIT) Oral Tablet Take 1capsule by mouth in the morning. 90 Tablet 3 04/08/20 23 Active Dicyclomine HCl 10 MG Oral Capsule (Bentyl) Take 1 Capsule by mouth 2 times a day as needed for Cramping. 180 Capsule 3 3 2:27 PM EST 04/09/20 23 Active DULoxetine HCl 60 MG Oral Capsule Delayed Release Particles (Cymbalta) Take 1 Capsule by mouth in the morning. Do not cut, crush or chew. 90 Capsule 5 4 7:31 AM EDT 04/15/20 23 Active Mesalamine 1.2 GM Oral Tablet Delayed Release (Lialda) take two tablets by mouth daily 180 Tablet 3 4 6:33 PM EDT 05/06/20 23 Active Omeprazole 20 MG Oral Capsule Delayed Release (PriLOSEC) Take 1 Capsule by mouth in the morning. 90 Capsule 3 4 7:00 AM EDT 05/08/20 23 Active rOPINIRole HCl 2 MG Oral Tablet (Requip)Indicatio ns:Restless legs syndrome Take 1 Tablet by mouth at bedtime. 90 Tablet 3 4 3:06 PM EDT 06/24/19 24 Active Syringe/Needle (Disp) 22G X 1-1/2" 5 MLIndications:B12 deficiency USE FOR INJECTION OF DEXAMETHASONE OR HYDROCORTISONE FOR ADRENAL CRISIS 3 Each 5 10/01/19 24 Active cycloSPORINE 0.05 % Ophthalmic Emulsion (Restasis) place 1 drop into both eyes twice daily 180 Each 3 4 9:11 AM EDT 11/11/19 24 Active Metoclopramide HCl 10 MG Oral Tablet (Reglan) TAKE ONE TABLET BY MOUTH THREE TIMES DAILY 30 MIN BEFORE MEALS 360 Tablet 3 4 6:53 AM EDT 11/12/19 24 Active Nadolol 40 MG Oral Tablet (Corgard)Indicati ons:NSVT (nonsustained ventricular tachycardia) (HCC) Take 1 Tablet by mouth in the morning. 90 Tablet 1 4 11:09 AM EDT 12/03/19 24 Active Potassium Chloride ER 10 MEQ Oral Capsule Extended ReleaseIndication s:Hypokalemia TAKE ONE CAPSULE BY MOUTH IN THE MORNING AND ONE CAPSULE BEFORE BEDTIME 180 Capsule 2 12/29/19 24 Active Fluticasone-Umecl idin-Vilant 200-62.5-25 MCG/ACT Aerosol Powder Breath Activated (Trelegy Ellipta) inhale one puff by mouth in the morning 60 Each 10 01/17/20 24 Active Albuterol Sulfate HFA 108 (90 Base) MCG/ACT Inhalation Aerosol Solution Inhale 2 Puffs by mouth every 6 hours as needed for Wheezing. 54 g 3 4 6:33 PM EDT 01/29/20 24 Active Full Kit Nebulizer Set Use with Nebulizer Medication EVERY SIX HOURS WHILE AWAKE as directed. Dx Code: J45.30 1 Each 3 01/29/20 24 Active Albuterol Sulfate 0.63 MG/3ML Inhalation Nebulization Solution (Accuneb) Inhale 1 Vial via nebulizer every 6 hours as needed for Wheezing or Shortness of Breath. 360 mL 01/30/20 24 Active Cyanocobalamin 1000 MCG/ML Injection Solution (Cyanocobalamin) INJECT 1,000 MCG (1ML) INTRAMUSCULARLY DIRECTED FOR 30 DAYS 3 mL 02/09/20 24 Active BD Luer-Eli Syringe 22G X 1" 3 ML (Syringe/Needle (Disp))Indication s:B12 deficiency FOR USE WITH B12 INJECTIONS 3 Each 3 02/11/20 Active predniSONE 20 MG Oral Tablet (Deltasone) Take 1 Tablet by mouth in the morning. 5 Tablet 4 11:39 AM EDT 02/26/20 Active Additional Information Patient not taking.Reported on 05/05/2024 Famotidine 40 MG Oral Tablet (Pepcid) Take 1 tablet by mouth daily. 90 Tablet 1 4 3:24 PM EDT 03/05/20 Active Diclofenac Sodium 50 MG Oral Tablet Delayed Release (Voltaren)Indicat ions:Lumbar degenerative disc disease,Lumbar radiculopathy Take 1 Tablet by mouth in the morning and 1 Tablet before bedtime take With food 180 Tablet 1 4 3:52 PM EDT 04/02/20 Active Hydrocortisone 5 MG Oral Tablet (Cortef) take 2 tablets in the morning , 1 tablet at lunch and 1 tablet at supper, double or triple dose during sickness 400 Tablet 1 04/06/20 Active Pregabalin 150 MG Oral Capsule (Lyrica)Indicatio ns:Hereditary and idiopathic peripheral neuropathy Take 1 capsule by mouth in the morning and 2 capsules by mouth at bedtime 90 Capsule 2 4 3:06 PM EDT 04/16/20 Active Hospital, Clinic, or Other Facility Administered Medication Ordered Dose Route Frequency Start Date End Date Status Albuterol Sulfate (Proventil) (2.5 MG/3ML) 0.083% inhalation solution 2.5 mgIndications:Mild persistent asthma without complication,SOB (shortness of breath) 2.5 mg NEBULIZER Q4H PRN 05/30/2021 Act mary jo documented as of this encounter (statuses as of 05/06/2024) Active Problems Problem Noted Date Diagnosed Date Dizziness 02/26/2024 SOB (shortness of breath) 02/26/2024 Chest pain 02/26/2024 Bilateral impacted cerumen 02/26/2024 Left inguinal hernia 12/01/2023 SVT (supraventricular tachycardia) 06/24/2023 Crohn's disease of small intestine without compl ication 06/24/2023 Adrenal disease 06/24/2023 Obesity, Class I, BMI 30.0-34.9 (see actual BMI) 12/04/2022 S/P transsphenoidal hypophysectomy 03/07/2022 Secondary adrenal insufficiency 02/20/2022 Seizure disorder, simple par tial, without intractable epilepsy 10/16/2021 Hyperfunction of pituitary gland 10/16/2021 Functional voice disorder 10/16/2021 Psychosocial stressors 10/16/2021 Hyperprolactinemia 10/16/2021 Dyslipidemia 10/16/2021 NSVT (nonsustained ventricular tachycardia) 05/24 AVNRT (AV maureen re-entry tachycardia) 06/13/2020 Tachy-dell syndrome 10/20/2019 Gastroesophageal reflux disease with esophagitis 10/20/2019 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 Increased risk for Long QT Syndrome. 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 Asthma, mild persistent 04/29/2012 Overview (04/29/2012): Allergic component ROBERT (obstructive sleep apnea) 02/01/2010 Overview (03/03/2018): documented as of this encounter (statuses as of 05/06/2024) Resolved Problems Problem Noted Date Diagnosed Date Resolved Date S/P nasal septoplasty 03/07/20222022 History of 2019 novel bergman virus disease (COVID-19) 02/26/2022 12/04/2022 Overview (02/26/2022): Most recent 01/2022. hosp w/gastroenteritis. Overweight (BMI 25.0-29.9) 02/22/2022 0 10/29/2022 Vasospasm of peripheral artery 10/22/2021 02/22/2022 Elevated prolactin level 10/30/2019 Bradycardia, sinus 01/23/2018 0 Adrenal insufficiency 11/06/20172017 Anesthesia complication 10/13/201701/22 Overview (10/13/2017): Breathing issues Neuropathy 01/15/2016 12/09/2016 Sialolithiasis 03/16/2014 12/09/2016 Pilonidal cyst without mention of abscess 07/23/2013 12/09/2016 Allergic rhinitis 04/29/2012 10/20/2019 Tinnitus 04/13/2012 10/03/2017 Chronic diarrhea 10/29/2010 10/03/2017 Urinary hesitancy 07/23/2010 10/20/2019 Regional enteritis 05/15/2010 7 Regional enteritis of small intestine with large intestine 04/03/2010 12/09/2016 Overview (04/03/2010): Presumbed Crohn's disease. Bx with chronic inflammation and ulceration of the sigmoid colon. Hx suggestive of Crohn's. Impacted cerumen 01/25/2010 06/17/2017 Conductive hearing loss 01/25/2010 09/0 07/2021 documented as of this encounter (statuses as of 05/06/2024) Immunizations Name Administration Dates Next Due COVID-19 mRNA, LNP-s, No Pre serve, 2-Dose Series (Bandwidth) 04/26/2021,10/20/2020,09/27/2020 COVID-19, MRNA-LNP, PF, 50 M CG/0.5 mL, 12 YRS AND ABOVE, IM (MODERNA-Spikevax) 05/31/2023 Covid-19, Mrna, Lnp-s, Pf, B ivalent, 50 Mcg, IM, 12 yrs and above (Moderna) 11/04/2022 Pneumococcal Conjugate Vacc, 13 Valent (Prevnar) 03/20/2016 Pneumococcal Polysaccharide PPV23 (Pneumovax) 05/16/2021,05/28/2013 RSV Vac., Recomb, Adjuvant, PF,0.5 Ml (Arexvy) 05/31/2023 Season Influenza, Quad, PF, Adjuvanted, 65+ Yrs, IM (FLUAD) 02/07/2020 Seasonal Influenza Vac., MDV , IM, 0.5 mL (Fluzone) 02/21/2015,09/14/2014,03/18/2013,05/13,04/23/2010 Seasonal Influenza, High Dos e, Trivalent, PF, IM (Fluzone HD) 03/15/2024 Seasonal Influenza, PF, 6 M & above, IM , (FluLaval or Fluzone) 05/16/2021,04/28/2017 Seasonal Influenza, Quadriva lent Hd (Fluzone Hd) 02/26/2022 Seasonal Influenza, Quadriva lent, No Preserve, IM 04/03/2023,03/20/2019,03/04/2018,03/20 TDAP (age 10 and older)(Boostrix) 12/17/2019 TDAP, Age 7 and older, IM (Adacel) 12/13/2009 Varicella Zoster Vaccine (Adult) 01/29/2016 Zoster Vaccine Recombinant (Shingrix) 11/21/2018 ,09/15/2018 documented as of this encounter Social History Tobacco Use Types Packs/Day Years Used Date Smoking Tobacco: Never Smokeless Tobacco: Never Alcohol Use Standard Drinks/Week Comments Yes 0 (1 standard drink = 0.6 oz pur e alcohol) Occassional: varies PHQ-2 Answer Date Recorded PHQ Adult Total Score 1 06/24/2023 Hunger Vital Sign Answer Date Recorded Within the past 12 months, y ou worried that your food would run out before you got the money to buy more. Never true 04/13/20 24 Within the past 12 months, t he food you bought just didn't last and you didn't have money to get more. Never true 04/13/2024 Childcare Answer Date Recorded Do you feel overwhelmed with taking care of a child, family member or friend? No 04/13/2024 Does your family need help f inding childcare? (Household - for ages 0-17 years) Not on file 04/13/2024 Clothing Answer Date Recorded Have you been unable to get clothing when it was really needed? No 04/13/2024 Is your family able to get c lothes or diapers when needed? (Household - for ages 0-17 years) Not on file 04/13/2024 Personal Safety Answer Date Recorded Do you feel unsafe or have concerns for your saf ety? No 04/13/2024 Do you have concerns for you r family's safety? (Household - for ages 0-17 years) Not on file 04/13/2024 Utilities Answer Date Recorded Do you have trouble paying y our heating, water, or electric bill? No 04/13/2024 Is your family able to pay t he heat, water, or electric bill? (Household - for ages 0-17 years) Not on file 04/13/2024 Does your family have access to good internet? (Household - for ages 0-17 years) Not on file 04/13/2024 Employment Status Answer Date Recorded Are you unemployed or without regular income? No 04/13/2024 Does the household have a re lar source of income? (Household - for ages 0-17 years) Not on file 04/13/2024 Social Connections Answer Date Recorded How often do you feel lonely or isolated from th ose around you? Never 04/13/2024 Financial Resource Strain Answer Date R ecorded Do you have any trouble payi ng for your medications, or do you think you might in the future? No 04/13/2024 Does your family have troubl e paying for medicine? (Household - for ages 0-17 years) Not on file 04/13/2024 Transportation Needs Answer Date Record ed Do you have trouble getting a ride to medical visits or work? (Adult - for ages 18 years and over) Not on file 04/13/2024 Does your family have a hard time getting a ride to doctors visits? (Household - for ages 0-17 years) Not on file 04/13/2024 Has lack of transportation k ept you from medical appointments, meetings, work, or from getting things needed for daily living? Check all that apply. No 04/13/2024 Do you (or your family) have trouble finding or paying for a ride (transportation)? (Household - for ages 0-17 years) Not on file 04/13/2024 Housing Stability Answer Date Recorded Do you currently live in a s helter or have no steady place to sleep at night? No 04/13/2024 Do you think you are at risk of becoming homeless? (Adult - for ages 18 years and over) Not on file 04/13/2024 Does your family worry about paying for your home or becoming homeless? (Household - for ages 0-17 years) Not on file 1 Are you homeless or worried that you might be in the future? No 04/13/2024 Are you (or your family) venkat eless or worried that you might be in the future? (Household - for ages 0-17 years) Not on file Food Insecurity Answer Date Recorded Do you need food for this week? No 04/13/2024 Are you able to get enough f ood for your family? (Household - for ages 0-17 years) Not on file 04/13/2024 Does your family need food t his week? (Household - for ages 0-17 years) Not on file 04/13/2024 Do you always have enough fo od for your family? (Household - for ages 0-17 years) Not on file 04/13/2024 Sex and Gender Information Value Date Recorded Sex Assigned at Male 11/21/2022 11:18 AM EDT Legal Sex Male 6:45 AM EST Gender Identity Male 11/21/2022 11:18 AM EDT Sexual Orientation Straight 11/21/2022 11 :18 AM EDT Occupation Industry Job Start Date Job End Date [facility] [facility] Not on file Not on file Not on file documented as of this encounter Functional Status * Do you have serious difficulty walking or climbing stairs? (5 years old or older) Answer Date of Assessment Author Yes 03/08/2022 8:43 AM EDT Yvonne Lucero RN documented as of this encounter Plan of Treatment Upcoming Encounters Date Type Department Care Team (Late st Contact Info) Description 05/10/2024 7:15 AM EST Office Visit Non [facility], Operating Room, [facility] [address] [facility], [place] [id number] Khalif Wall MD [address] [place] [address] 05/12/2024 1:00 PM EST Telemedicine Psychology [place] [facility] [address] [place] [phone] 2, Psychology [facility] [address] [place] [address] 05/19/2024 8:40 AM EST Office Visit Pulmonary Medicine, [facility] [address] [place] [address] Rigoberto Lassiter MD [address] [place] [address] 05/19/2024 1:00 PM EST [facility] [address] [place] [address] 2, [facility] [address] [place] [address] 05/26/2024 9:30 AM EST Office Visit General Surgery, [facility] [address] [facility] [place] [address] Khalif Wall MD [address] [place] [address] 05/26/2024 1:00 PM EST [facility] [address] [place] [address] 2, [facility] [address] [place] [address] 06/02/2024 1:00 PM EST [facility] [address] [place] [address] 2, [facility] [address] [place] [address] 06/09/2024 1:00 PM EST Telemedicine Psychology [address], [place] [address] [place] [address] 2, [facility] [address] [place] [address] 06/30/2024 1:00 PM EST Telemedicine Psychology [place] [facility] [address] [place] [phone], [facility] [address] [place] [phone] 07/07/2024 1:00 PM EST Telemedicine Psychology [place] [facility] [address] [place] [phone] 2, [facility] [address] [place] [phone] 07/14/2024 1:00 PM EST Telemedicine Psychology [place] [facility] [address] [place] [phone] 2, [facility] [address] [place] [phone] 07/20/2024 3:00 PM EST Office Visit Family Practice [facility] [address] [facility] [place] [address] Torri [facility]rbano CRNP [address] [facility] [address] 09/01/2024 3:30 PM EDT Procedure Only Urology, [facility] [address] [facility] [place] [address] Enrique Wall MD [address] [facility] [place] [address] 12/14/2024 3:30 PM EDT Office Visit Cardiology, [facility] [address] [facility] [place] [address] Kassandra Sam CRNP [address] [facility] [place] [address] 01/18/2025 3:00 PM EDT Office Visit Family Practice [facility] [address] [place] [address] Bandar Bailon DO [address] [place] [address] Scheduled Procedures Name Priority Associated Diagnoses Date/Ti me COLONOSCOPY FLEXIBLE PROXIMAL DIAGNOSTIC Recall History of colon polyps Health Maintenance Due Date Last Done Comments Cologuard 01/08/2001 Fecal Occult Blood Test 01/08/2001 Sigmoidoscopy 01/08/2001 Adult Wellness Visit 01/08/2022 COVID-19 Vaccine ( season) 2024 05/31/2023, 11/04/2022, 04/26/2021, Additional history exists Depression Screening 06/24/2024 06/24/2023 Diabetes Screening 04/21/2027 04/21/2024, 0 12/01/2023, 05/06/2023, Additional history exists Colonoscopy 02/26/2028 02/25/2023, 10/2022, 11/24/2018, Additional history exists Colorectal Cancer Screening 02/26/2028 Lipid Panel 05/06/2028 05/06/2023, 09/2021, 10/11/2021, Additional history exists DTap/Tdap Vaccines (3 - Td or Tdap) 12/16/2029 12/17/2019, 12/13/2009 Zoster Vaccines Completed 11/21/2018, 08/22, 01/29/2016 Pneumococcal Vaccine: 65+ Years Completed 05/16/2021, 03/20/2016, 05/28/2013 RETIRED - COLONOSCOPY-EVERY 5 YRS AGES 18-100 Discontinued 02/25/2023, 02/25/2023, 11/24/2018, Additional history exists Influenza Vaccine (FLU shot) Completed 03/15/2024, 04/03/2023, 02/26/2022, Additional history exists HPV (Gardasil) Vaccine Aged Out No lo nger eligible based on patient's age to complete this topic Hepatitis B Vaccine Aged Out No longe r eligible based on patient's age to complete this topic MENINGOCOCCAL (MENACTRA/MENVEO) Aged Out No longer eligible based on patient's age to complete this topic documented as of this encounter Medical Devices Implanted Type Area Boilermaking Supervisor Device Identifier Shelf Expiration Date Model / Serial / Lot Graft Lyoplnt 2.5x2.5cm 1x1 - [id number] Implanted:Qty: 1 on 03/07/2022 by Vaelriano Hathaway MD at [facility] [place] : AESCULAP [id number] 10/20/2026 [id number] / [id number] / [id number] Graft Lyoplnt 2.5x2.5cm 1x1 - [id number] Implanted:Qty: 1 on 03/07/2022 by Valeriano Hathaway MD at OR [facility] [place] : AESCULAP [id number] 10/20/2026 [id number] / [id number] / [id number] documented as of this encounter Procedures Procedure Name Priority Date/Time Associated Diagnosis Comments MRI SELLA TURCICA W WO CONTRAST Routine 05/05/2024 10:26 AM EST Pituitary macroadenoma (HCC) S/P transsphenoidal hypophysectomy (HCC) Secondary adrenal insufficiency (HCC) [E27.49 (ICD-10-CM)] documented in this encounter Results * MRI SELLA TURCICA W WO CONTRAST (05/05/2024 10:26 AM EST) Anatomical Region Laterality Modality Head Magnetic Resonan ce 05/05/2024 12:2 3 PM EST Impressions 05/05/2024 12:20 PM EST IMPRESSION No evidence for tumor recurrence. Narrative 05/05/2024 12:20 PM EST EXAM MRI SELLA TURCICA W WO CONTRAST; MRI T SPINE WO CONTRAST-05/05/2024 10:26 am; 05/05/2024 9:50 am HISTORY s/p tss for adenoma resection in 2021; assess for recurrent tumor; SCS trial pre-procedural survey TECHNIQUE Dedicated images of the sella are obtained without and with contrast. Select images of the entire brain are obtained COMPARISON 02/12/2024 FINDINGS Pituitary stalk is slightly deviated to the left. Postsurgical changes of transsphenoidal approach for resection macro adenoma. No evidence for tumor recurrence. Few scattered chronic microvascular changes in supratentorial white matter. Procedure Note Linwood Puga MD - 05/05/2024 EXAM MRI SELLA TURCICA W WO CONTRAST; MRI T SPINE WO CONTRAST-05/05/2024 10:26am; 05/05/2024 9:50 am HISTORY s/p tss for adenoma resection in 2021; assess for recurrent tumor; SCStrial pre-procedural survey TECHNIQUE Dedicated images of the sella are obtained without and with contrast.Select images of the entire brain are obtained COMPARISON 02/12/2024 FINDINGS Pituitary stalk is slightly deviated to the left. Postsurgical changes oftranssphenoidal approach for resection macro adenoma. No evidence fortumor recurrence. Few scattered chronic microvascular changes insupratentorial white matter. IMPRESSION IMPRESSION No evidence for tumor recurrence. us Sujit Shaikh PA-C RAD MRI-MRA Grace l Result documented in this encounter Visit Diagnoses Diagnosis Pituitary macroadenoma (HCC) Benign neoplasm of pituitary gland and craniopharyngeal duct (pouch) S/P transsphenoidal hypophysectomy (HCC) Other postprocedural status Secondary adrenal insufficiency (HCC) [E27.49 (ICD-10-CM)] Glucocorticoid deficiency documented in this encounter Administered Medications Inactive Administered Medications - up to 3 most recent administrations Medication Order MAR Action Action Date Dose Rate Site gadobutrol (Gadavist) inj 8.4 mL 8.4 mL (rounded from 8.39 mL = 0.1 mL/kg 83.9 kg), Intravenous, ONCE, On Fri05/05/24 at 1029, For 1 dose, Radiology Medication Routing (Non-IR) Given 05/05/2024 10:29 AM EST 8.4 mL documented in this encounter Advance Directives * Full Code (Latest Code Status on File) Date Activated Date Inactivated Comments 04/06/2024 8:46 AM 04/06/2024 3:03 PM This order reflects the patients wishes and were consensually agreed upon. Question Answer Comments Discussion of Advance Directives occurred with: Patient * Full Code Date Activated Date Inactivated Comments 03/07/2022 2:13 PM 03/12/2022 2:17 PM This order reflects the patients wishes and were consensually agreed upon. Question Answer Comments Discussion of Advance Direct cornelius occurred with: Not Discussed due to patient's condition Does the patient have a Living Will? No Does the patient have Health Care Power of Putter In? No * Full Code Date Activated Date Inactivated Comments 03/07/2022 1:00 PM 03/07/2022 2:13 PM This order r eflects the patients wishes and were consensually agreed upon. Question Answer Comments Discussion of Advance Directives occurred with: Patient * Full Code Date Activated Date Inactivated Comments 03/07/2022 6:08 AM 03/07/2022 1:00 PM This order r eflects the patients wishes and were consensually agreed upon. Question Answer Comments Discussion of Advance Direct cornelius occurred with: Not Discussed due to patient's condition * Full Code Date Activated Date Inactivated Comments 05/28/2021 10:50 AM 05/28/2021 8:21 PM This order reflects the patients wishes and were consensually agreed upon. Question Answer Comments Discussion of Advance Directives occurred with: Not Discussed Care Teams Dispatcher Radio Relationship Specialty Start Date End Date Bandar Bailon DO [address] [place] [address] PCP - General Family Medicine 10/10/20 documented as of this encounter
--- OUTSIDE RECORDS SUMMARY | 2024-05-10 05:39 | External Medical Summary | Summary of Care ---
Author Name Unknown Organization [facility] Address [address] [place] [address] Phone [phone] Care Team Providers Care District Plant Supervisor Name Role Phone Bandar Bailon Primary Care Provider Reason for Visit * Reason Onset Date Comments Advice 04/01/2024 Hydrocortisone 5 MG Oral Tablet (Cortef) Surgery 04/01/2024 Encounter Details Date Type Department Care Team (Late st Contact Info) Description 04/01/2024 Telephone Endocrinology, [place] [address] [place] [address] Cici Gusman MD [address] [place] [address] Advice (Hydrocortisone 5 MG Oral Tablet (C... Allergies Active Allergy Reactions Criticality Noted Date Comments Sulfamethoxazole-Trimet hoprim Itching 07/16/2021 Pt noted total body itching within one hour of first dose. Took benedryl and inhaler and stopped med. Codeine Other (Please comment) Medium 04/23/2017 Allergic reaction Other reaction(s): UNSURE REACTION - HAPPENED A CHILD Sulfa Antibiotics High 05/22/2022 Other reaction(s): Swelling of Lip/Tongue/Throat documented as of this encounter (statuses as of 05/07/2024) Medications OXYGEN oxygen at 2 lpm via [...] 2 mL 6 01/30/20 22 Active Calcium Carb-Cholecalcif richa 600-200 MG-UNIT Oral Tablet Take by mouth 2 Tablets in the morning. 180 Tablet 3 04/04/20 22 Active Diathrive Pen Needle 31G X 8 MM (Insulin Pen Needle)Indicatio ns:B12 deficiency Use for b-12 injections once monthly as indicated. 30 Each 3 06/06/20 22 Active Tobramycin Powder Compounded tobramycin 40mg capsules to be added to sinus rinse twice daily. Dispense 180 of each (=3 months supply). [facility] at [address] [place] [address], [address], [place] [address]. 1 g 09/13/19 23 Active Mupirocin 2 % External Ointment (Bactroban) Apply to affected toenail sites once daily. Cover with dry bandage. 22 g 3 3:52 PM EDT 11/14/19 23 Active Atorvastatin Calcium 20 MG Oral Tablet (Lipitor) TAKE 1 TABLET BY MOUTH IN THE MORNING 90 Tablet 1 4 5:31 PM EDT 03/13/20 23 Active Restasis 0.05 % Ophthalmic EmulsionIndicati ons:Pituitary macroadenoma (HCC) Instill 1 Drop into both eyes in the morning and 1 Drop before bedtime. 180 Each 3 3 6:50 AM EDT 03/13/20 23 Active levETIRAcetam 500 MG Oral Tablet (Keppra) Take 1 Tablet by mouth in the morning and 1 Tablet before bedtime. 180 Tablet 1 4 2:29 PM EDT 03/14/20 23 Active Montelukast Sodium 10 MG Oral Tablet (Singulair)Indic ations:Mild persistent asthma without complication Take 1 Tablet [...] Active rOPINIRole HCl 2 MG Oral Tablet (Requip)Indicati ons:Restless legs syndrome Take 1 Tablet by mouth at bedtime. 90 Tablet 3 4 3:06 PM EDT 06/24/19 24 Active Syringe/Needle (Disp) 22G X 1-1/2" 5 MLIndications:B1 2 deficiency USE FOR INJECTION OF DEXAMETHASONE OR [...] 24 Active Nadolol 40 MG Oral Tablet (Corgard)Indicat ions:NSVT (nonsustained ventricular tachycardia) (HCC) Take 1 Tablet by mouth in the morning. 90 Tablet 1 4 11:09 AM EDT 12/03/19 24 Active Potassium Chloride ER 10 MEQ Oral Capsule Extended ReleaseIndicatio ns:Hypokalemia TAKE ONE CAPSULE BY MOUTH IN THE MORNING AND ONE CAPSULE BEFORE BEDTIME 180 Capsule 2 12/29/19 24 Active Fluticasone-Umec lidin-Vilant 200-62.5-25 MCG/ACT Aerosol Powder Breath Activated (Trelegy [...] Syringe 22G X 1" 3 ML (Syringe/Needle (Disp))Indicatio ns:B12 deficiency FOR USE WITH B12 INJECTIONS 3 Each 3 02/11/20 24 Active predniSONE 20 MG Oral Tablet (Deltasone) Take 1 Tablet by mouth in the morning. 5 Tablet 4 11:39 AM EDT 02/26/20 24 Active Additional Information Patient not taking.Reported on 05/05/2024 Famotidine 40 MG Oral Tablet (Pepcid) Take 1 tablet by mouth daily. 90 Tablet 1 4 3:24 PM EDT 03/05/20 24 Active Diclofenac Sodium 50 MG Oral Tablet Delayed Release (Voltaren)Indica tions:Lumbar degenerative disc disease,Lumbar radiculopathy Take 1 Tablet by mouth in the morning and 1 Tablet before bedtime. With food.. 180 Tablet 4 7:00 AM EDT 04/08/20 23 024 Disconti nued(Ref ill) Pregabalin 150 MG Oral Capsule (Lyrica)Indicati ons:Hereditary and idiopathic peripheral neuropathy Take 1 capsule by mouth in the morning and 2 capsules by mouth at bedtime 90 Capsule 2 4 5:31 PM EDT 09/17/19 24 024 Disconti nued(Ref ill) Hydrocortisone 5 MG Oral Tablet (Cortef) take 2 tablets in the morning , 1 tablet at lunch and 1 tablet at supper, double or triple dose during sickness 400 Tablet 1 4 11:09 AM EDT 04/01/20 24 024 Disckirbyi nufadi(Ref ill) Hospital, Clinic, or Other Facility Administered Medication Ordered Dose Route Frequency Start Date End Date Status Albuterol Sulfate (Proventil) (2.5 MG/3ML) 0.083% inhalation solution 2.5 mgIndications:Mild persistent asthma without complication,SOB (shortness of breath) 2.5 mg NEBULIZER Q4H PRN 05/30/2021 Act mary jo documented as of this encounter (statuses as of 05/07/2024) Active Problems Problem Noted Date Diagnosed Date [...] Overview (03/18/2018): 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 Increased risk for Long QT Syndrome. 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 hosp w/gastroenteritis. Overweight (BMI 25.0-29.9) 02/22/2022 0 10/29/2022 Vasospasm of peripheral artery 10/22/2021 02/22/2022 Elevated prolactin level 10/30/2019 Bradycardia, sinus 01/23/2018 0 Adrenal insufficiency 11/06/20172017 Anesthesia complication 10/13/2017 08/08/2021 Overview (10/13/2017): Breathing issues Neuropathy 01/15/2016 12/09/2016 [...] cerumen 01/25/2010 06/17/2017 Conductive hearing loss 01/25/2010 090 07/2021 documented as of this encounter (statuses as of 05/07/2024) Immunizations Name Administration Dates Next Due COVID-19 mRNA, LNP-s, No Pre serve, 2-Dose Series (99Presents) 04/26/2021,10/20/2020,09/27/2020 COVID-19, MRNA-LNP, PF, 50 M CG/0.5 [...] 04/13/2024 Does the household have a re gular source of income? 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 (5 years old or older) Answer Date of Assessment Author Yes 03/08/2022 8:43 AM EDT Yvonne Lucero RN documented as of this encounter Miscellaneous Notes * Telephone Encounter - Evy Camacho LPN - 05/07/2024 12:56 PM EST Called general surgery department and spoke to Margy Gave instructions and no further action needed. Did relay doses below from OV notes and then saw the note from 04/01- so this was already addressed but reinforced Mickey Florence DO 04/01/24 11:59 AM Note If out patient surgery, take a double dose for the full day of the surgery If inpatient, take double dose the am of surgery and anesthesia can give iv stress steroid * Telephone Encounter - Mickey Florence DO - 05/07/2024 11:57 AM EST Yes, these hydrocortisone instructions would remain the same * Telephone Encounter - Evy Camacho LPN - 05/07/2024 9:56 AM EST Mr. 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 Hathaway. His postoperative disease is stable. He developed central adrenal insufficiency preop. He still has s/s. Im not sure they are related to his steroid replacement, although they are a little better with HC 20 mg am 10 mg pm and 20 mg evening. He knows stress dosing and has emergency injectable HC. Id have him see ENT and make sure he doesn't have a vestibular problem. He had questionable thyroid function studies preop, but remains euthyroid postop. Follow labs prior to next visit. * Telephone Encounter - Harshad Krause OSA - 05/07/2024 9:48 AM EST Margy from Dr. Brian Wall's office calling. Pt is scheduled for surgery Friday. She wants to make sure these medication instructions remain the same. Please advise her at [phone], option 1 for [place] and then option 1 again. Ask for General Surgery nurse. Thank you! * Telephone Encounter - Aga Stuart LPN - 04/01/2024 12:28 PM EDT Attempted to call patient. Mail box full and unable to leave a vm. Will try at a later time. Per Dr Florence: If out patient surgery, take a double dose for the full day of the surgery If inpatient, take double dose the am of surgery and anesthesia can give iv stress steroid Aga Stuart LPN 04/01/2024 12:29 PM * Telephone Encounter - Mickey Florence DO - 04/01/2024 11:59 AM EDT If out patient surgery, take a double dose for the full day of the surgery If inpatient, take double dose the am of surgery and anesthesia can give iv stress steroid * Telephone Encounter - Donna Du net fisher - 04/01/2024 11:14 AM EDT Patient and patients calling regarding medication: Hydrocortisone 5 MG Oral Tablet (Cortef) . PT is having upcoming surgery - and is calling to find out if he should continue taking medication as is, or increase to " sick dose ". And how much. Please advise and reach out to patient. [phone] Thank you, Donna Du Desk Officer [facility] 04/01/2024,11:16 AM documented in this encounter Plan of Treatment Upcoming Encounters Date Type Department Care Team (Late st Contact Info) Description 05/10/2024 7:15 AM EST Office Visit Non [facility], Operating Room, [facility] [address] [place] [facility] [place] [address] Khalif Wall MD [address] [place] [address] 05/12/2024 1:00 PM EST Telemedicine Psychology [place] [facility] [address] [place] [address] 2, Psychology [facility] [address] [place] [phone] 05/19/2024 8:40 AM EST Office Visit Pulmonary Medicine, [facility] [place] [address] [facility] [place] [address] Rigoberto Lassiter MD [address] [place] [address] 05/19/2024 1:00 PM EST Telemedicine Psychology [place] [facility] [address] [place] [phone] 2, [facility] [address] [place] [address] 05/26/2024 9:30 AM EST Office Visit General Surgery, [facility] [place] [address] [place] [address] Khalif Wall MD [address] [place] [address] 05/26/2024 1:00 PM EST Telemedicine Psychology [place] [facility] [address] [place] [address] 2, [facility] [address] [place] [address] 06/02/2024 1:00 PM EST [facility] [address] [place] [address] 2, [facility] [address] [place] [address] 06/09/2024 1:00 PM EST Telemedicine Psychology [place] [facility] [address] [place] [address] 2, [facility] [address] [place] [address] 06/30/2024 1:00 PM EST Telemedicine Psychology [place] [facility] [address] [place] [address] 2, [facility] [address] [place] [address] 07/07/2024 1:00 PM EST Telemedicine Psychology [place] [facility] [address] [place] [address] 2, Psychology [facility] [address] [place] [address] 07/14/2024 1:00 PM EST [facility]icine [facility] [address] [place] [address] 2, Psychology [facility] [address] [place] [address] 07/20/2024 3:00 PM EST Office Visit Family Practice [facility] [place] [address] [facility] [place] [address] Torri Urbano CRNP [address] [place] [address] 09/01/2024 3:30 PM EDT Procedure Only Urology, [facility] [place] [address] [facility] [place] [address] Enrique Wall MD [address] [facility] [place] [address] 12/14/2024 3:30 PM EDT Office Visit Cardiology, [facility] [place] [facility] [place] [address] Kassandra Sam CRNP [address] [facility] [place] [address] 01/18/2025 3:00 PM EDT Office Visit Family Practice [facility] [place] [address] [facility] [place] [address] Bandar Bailon, [address] [place] [address] Scheduled Procedures Name Priority Associated Diagnoses Date/Ti [...] 05/06/2023, Additional history exists Colonoscopy 02/26/2028 02/25/2023, 090 10/2022, 11/24/2018, Additional history exists Colorectal Cancer Screening 02/26/2028 Lipid Panel 05/06/2028 05/06/2023, 11/0 09/2021, 10/11/2021, Additional history exists DTap/Tdap Vaccines [...] this encounter Medical Devices Implanted Type Area Highwall Drill Operator Device Identifier Shelf Expiration Date Model / Serial / Lot Graft Lyoplnt 2.5x2.5cm 1x1 - [id number] Implanted:Qty: 1 on 03/07/2022 by Valeriano Hathaway MD at [facility] [place] : AESCULAP [id number] 10/20/2026 [id number] / [id number] / [id number] Graft Lyoplnt 2.5x2.5cm 1x1 - [id number] Implanted:Qty: 1 on 03/07/2022 by Valeriano Hathaway MD at OR [facility] [place] : AESCULAP [id number] 10/20/2026 [id number] / [id number] / [id number] documented as of this encounter Advance Directives * Full Code (Latest Code Status on File) Date Activated Date Inactivated Comments 04/06/2024 8:46 AM 04/06/2024 3:03 PM This order reflects the patients wishes and were consensually agreed upon. Question Answer Comments Discussion of Advance Directives occurred with: Patient * Full Code Date Activated Date Inactivated Comments 03/07/2022 2:13 PM 03/12/2022 2:17 PM This order r eflects the patients wishes and were consensually agreed upon. Question Answer Comments Discussion of Advance Direct cornelius occurred with: Not Discussed due to patient's condition Does the patient have a Living Will? No Does the patient have Health Care Power of Doctor Of Podiatric Medicine? No * Full Code Date Activated Date [...] Directives occurred with: Not Discussed Care Teams District Plant Supervisor Relationship Specialty Start Date End Date Bandar Bailon DO [address] [place] [address] PCP - General Family Medicine 10/10/20 documented as of this encounter
--- OUTSIDE RECORDS SUMMARY | 2024-05-10 05:39 | External Medical Summary | Summary of Care ---
Author Name Unknown Organization [facility] Address [address] [facility] [place] [address] Phone [phone] Care Team Providers Care Data Entry Associate Name Role Phone BailonRuiBandartwin Garrisonpriyanka Primary Care Provider Reason for Visit * Reason Onset Date Comments Advice 05/07/2024 Encounter Details Date Type Department Care Team (Late st Contact Info) Description 05/07/2024 Telephone General Surgery, [facility] [address] [place] [id number] Khalif Wall MD [address] [place] [address] Advice Allergies Active Allergy Reactions Criticality Noted Date [...] each (=3 months supply). [facility] at [address] [place] [address], [place] [address], [place] [address]. 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 Increased risk for Long QT Syndrome. 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 (5 years old or older) Answer Date of Assessment Author Yes 03/08/2022 8:43 AM EDT Yvonne Lucero RN documented as of this encounter Miscellaneous Notes * Telephone Encounter - Annamaria Vivas LPN - 05/07/2024 1:14 PM EST Félix Evans called and I confirmed with him that he is to take 100mgs. Patient understood. * Telephone Encounter - Annamaria Vivas LPN - 05/07/2024 12:59 PM EST Talked to Dr Florence office and they said that the directions were accurate from 04/01/2024. He takes 20mgs in the morning and 10 in the afternoon and 20 in the evening. To make sure I said this would be out patient and he is to take 100mgs she said yes and I said when and she said as soon as he gets up. I left a message on the patients answering machine and asked if he could call me and let me know that he got my message. documented in this encounter Plan of Treatment Upcoming Encounters Date Type Department Care Team (Late st Contact Info) Description 05/10/2024 7:15 AM EST Office Visit [facility], Operating Room, [facility] [address] [place] [facility] [address] Khalif Wall MD [address] [place] [address] 05/12/2024 1:00 PM EST Telemedicine Psychology [place] [facility] [address] [place] [phone] 2, [facility] [address] [place] [phone] 05/19/2024 8:40 AM EST Office Visit Pulmonary Medicine, [facility] [address] [facility] [place] [address] Rigoberto Lassiter MD [address] [place] [address] 05/19/2024 1:00 PM EST Telemedicine Psychology [place] [address] [place] [address] 2, [facility] [address] [place] [address] 05/26/2024 9:30 AM EST Office Visit General Surgery, [facility] [address] [facility] [place] [address] Khalif Wall MD [address] [facility] [address] 05/26/2024 1:00 PM EST Telemedicine Psychology [place] [address] [place] [address] 2, [facility] [address] [place] [phone] 06/02/2024 1:00 PM EST Telemedicine Psychology [place] [address] [place] [address] 2, [facility] [address] [place] [address] 06/09/2024 1:00 PM EST [facility]icine [facility] [address] [place] [address] 2, [facility] [address] [place] [address] 06/30/2024 1:00 PM EST Telemedicine Psychology [place] [address] [place] [phone] 2, [facility] [address] [place] [phone] 07/07/2024 1:00 PM EST Telemedicine Psychology [place] [facility] [address] [place] [phone] 2, [facility] [address] [place] [phone] 07/14/2024 1:00 PM EST Telemedicine Psychology [place], [place] [address] [place] [address] 2, [facility] [address] [place] [phone] 07/20/2024 3:00 PM EST Office Visit Family Practice [facility] [address] [facility] [place] [address] Torri Urbano CRNP [address] [facility] [place] [address] 09/01/2024 3:30 PM EDT Procedure Only Urology, [facility] [address] [facility] [place] [address] Enrique Wall MD [address] [facility] [place] [address] 12/14/2024 3:30 PM EDT Office Visit Cardiology, [facility] [address] [facility] [place] [address] Kassandra Sam CRNP [address] [place] [address] [place] [address] 01/18/2025 3:00 PM EDT Office Visit Family Practice [facility] [address] [facility] [place] [address] Bandar Bailon, DO [address] [place] [address] Scheduled Procedures Name Priority Associated Diagnoses Date/Ti [...] this encounter Medical Devices Implanted Type Area Office Specialist Device Identifier Shelf Expiration Date Model / Serial / Lot Graft Lyoplnt 2.5x2.5cm 1x1 - [id number] Implanted:Qty: 1 on 03/07/2022 by Valeriano Hathaway MD at OR [facility] [place] : AESCULAP [id number] 10/20/2026 [id number] / [id number] / [id number] Graft Lyoplnt 2.5x2.5cm 1x1 - [id number] Implanted:Qty: 1 on 03/07/2022 by Valeriano Hathaway MD at OR [facility] [place] : AESCULAP [id number] 10/20/2026 [id number] / [id number] / [id number] documented as of this encounter Advance Directives [...] the patient have Health Care Power of Child Support Specialist? No * Full Code Date Activated Date Inactivated Comments 03/07/2022 1:00 PM 03/07/2022 2:13 PM This order r eflects the patients wishes and were consensually agreed upon. Question Answer Comments Discussion of Advance Directives occurred with: Patient * Full Code Date Activated Date Inactivated Comments 03/07/2022 6:08 AM 03/07/2022 1:00 PM This order reflects the patients wishes [...] Directives occurred with: Not Discussed Care Teams Data Entry Associate Relationship Specialty Start Date End Date Bandar Bailon DO [address] [place] [address] PCP - General Family Medicine 10/10/20 documented as of this encounter
--- OUTSIDE RECORDS SUMMARY | 2024-05-10 05:39 | External Medical Summary | Summary of Care ---
Author Name Unknown Organization [facility] Address [address] [place] [address] Phone [phone] Care Team Providers Care Patient Educator Name Role Phone Bandar Bailon Primary Care Provider Reason for Visit * Reason Onset Date Comments Advice 04/01/2024 Hydrocortisone 5 MG Oral Tablet (Cortef) Surgery 04/01/2024 Encounter Details Date Type Department Care Team (Late st Contact Info) Description 04/01/2024 Telephone Endocrinology, [place] [address] [place] [address] Cici Gusman MD [address] [place] [address] Advice (Hydrocortisone 5 MG Oral [...] each (=3 months supply). [facility] at [address] [place] [address], [address], [place] [address]. 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 Increased risk for Long QT Syndrome. 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 (5 years old or older) Answer Date of Assessment Author Yes 03/08/2022 8:43 AM EDT Yvonne Lucero RN documented as of this encounter Miscellaneous Notes * Telephone Encounter - Mickey Florence DO - 05/07/2024 11:57 AM EST Yes, these hydrocortisone instructions would remain the same * Telephone Encounter - Evy Camacho LPN - 05/07/2024 9:56 AM EST Mr. De L aO has done well with debulking of a [...] remain the same. Please advise her at [phone], option 1 for Amharic and then option 1 again. Ask for [...] steroid * Telephone Encounter - Donna Du PHARM Tech - 04/01/2024 11:14 AM EDT Patient and patients calling regarding medication: Hydrocortisone 5 MG Oral Tablet (Cortef) . PT is having upcoming surgery - and is calling to find out if he should continue taking medication as is, or increase to " sick dose ". And how much. Please advise and reach out to patient. [phone] Thank you, Donna Du Job Spotter [facility] ([facility]) 04/01/2024,11:16 AM documented in this encounter Plan of Treatment Upcoming Encounters Date Type Department Care Team (Late st Contact Info) Description 05/10/2024 7:15 AM EST Office Visit [facility], Operating Room, [place] [address] [place] [address] Khalif Wall MD [address] [place] [address] 05/12/2024 1:00 PM EST Telemedicine Psychology [facility] [address] [place] [address] 2, [facility] [address] [place] [address] 05/19/2024 8:40 AM EST Office Visit Pulmonary Medicine, [facility] 132 [place] [address] Rigoberto Lassiter MD [address] [place] [facility] [place] [address] 05/19/2024 1:00 PM EST Telemedicine Psychology [place] [facility] [address] [place] [address] 2, [facility] [address] [place] [address] 05/26/2024 9:30 AM EST Office Visit General Surgery, [facility] 132 [facility] [place] [address] Khalif Wall MD [address] [facility] [address] 05/26/2024 1:00 PM EST Telemedicine [facility] [address] [place] [address] 2, [facility] [address] [place] [address] 06/02/2024 1:00 PM EST Telemedicine Psychology [address], [place] [address] [place] [address] 2, [facility] [address] [place] [address] 06/09/2024 1:00 PM EST Telemedicine Psychology [place] [facility] [address] [place] [address] 2, [facility] [address] [place] [address] 06/30/2024 1:00 PM EST Telemedicine Psychology [place] [facility] [address] [place] [address] 2, [facility] [address] [place] [address] 07/07/2024 1:00 PM EST Telemedicine Psychology [place] [facility] [address] [place] [address] 2, [facility] [address] [place] [address] 07/14/2024 1:00 PM EST Telemedicine Psychology [place] [facility] [address] [place] [address] 2, [facility] [address] [place] [address] 07/20/2024 3:00 PM EST Office Visit Family Practice [facility] 132 [facility] [place] [address] Torri Urbano CRNP 132 [facility] [place] [address] 09/01/2024 3:30 PM EDT Procedure Only Urology, [facility] 132 [facility] [place] [address] Enrique Wall MD [address] [place] [address] 12/14/2024 3:30 PM EDT Office Visit Cardiology, [facility] [place] [address] Kassandra Sam CRNP [address] [place] [address] 01/18/2025 3:00 PM EDT Office Visit Family Practice [facility] [place] [address] Bandar Bailon DO [address] [place] [address] Scheduled Procedures Name Priority Associated Diagnoses Date/Ti [...] 05/06/2023, Additional history exists Colonoscopy 02/26/2028 02/25/2023, 09/0 10/2022, 11/24/2018, Additional history exists Colorectal Cancer Screening 02/26/2028 Lipid Panel 05/06/2028 05/06/2023, 110 09/2021, 10/11/2021, Additional history exists DTap/Tdap Vaccines [...] this encounter Medical Devices Implanted Type Area Silk Brusher Device Identifier Shelf Expiration Date Model / Serial / Lot Graft Lyoplnt 2.5x2.5cm 1x1 - [id number] Implanted:Qty: 1 on 03/07/2022 by Valeriano Hathaway MD at OR [facility] B [place] : AESCULAP [id number] 10/20/2026 [id number] / [id number] / [id number] Graft Lyoplnt 2.5x2.5cm 1x1 - [id number] Implanted:Qty: 1 on 03/07/2022 by Valeriano Hathaway MD at OR [facility] B [place] : AESCULAP [id number] 10/20/2026 [id number] / [id number] / [id number] documented as of this encounter Advance Directives [...] the patient have Health Care Power of Flour Worker? No * Full Code Date Activated Date [...] Directives occurred with: Not Discussed Care Teams Patient Educator Relationship Specialty Start Date End Date Bandar Bailon DO [address] [place] [address] PCP - General Family Medicine 10/10/20 documented as of this encounter
--- OUTSIDE RECORDS SUMMARY | 2024-05-10 05:39 | External Medical Summary | Summary of Care ---
Author Name Unknown Organization [facility] Address [address] [facility] [place] [address] Phone [phone] Care Team Providers Care Manager Wound Name Role Phone BailonRuiBandartwin Garrisonpriyanka Primary Care Provider Reason for Visit * Reason Onset Date Comments Advice 05/07/2024 Encounter Details Date Type Department Care Team (Late st Contact Info) Description 05/07/2024 Telephone General Surgery, [facility] [address] [place] [id number] Khalif Wall MD [address] [place] [address] Advice Allergies Active Allergy Reactions Criticality Noted [...] each (=3 months supply). [facility] at [address] [place] [address], [place] [address], [place] [address]. 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 Increased risk for Long QT Syndrome. Cardiac [...] mRNA, LNP-s, No Pre serve, 2-Dose Series ([employer]) 04/26/2021,10/20/2020,09/27/2020 COVID-19, MRNA-LNP, PF, 50 M CG/0.5 [...] Encounter - Annamaria Vivas LPN - 05/07/2024 9:49 AM EST Called and talked to patients cell pourer and asked if the message about his steroids that he should take are still the same directions from the message on 04/01/2024. They will talk to Dr and get back to us. documented in this encounter Plan of Treatment Upcoming Encounters Date Type Department Care Team (Late st Contact Info) Description 05/10/2024 7:15 AM EST Office Visit [facility], Operating Room, [facility] [address] [place] [facility] [place] [address] Khalif Wall MD [address] [place] [address] 05/12/2024 1:00 PM EST Telemedicine Psychology [place] [facility] [address] [place] [address] 2, [facility] [address] [place] [address] 05/19/2024 8:40 AM EST Office Visit Pulmonary Medicine, [facility] [address] [place] [address] Rigoberto Lassiter MD [address] [facility] [place] [address] 05/19/2024 1:00 PM EST Telemedicine Psychology [place] [facility] [place] [address] 2, [facility] [address] [place] [address] 05/26/2024 9:30 AM EST Office Visit General Surgery, [facility] [address] [place] [address] Khalif Wall MD [address] [place] [address] 05/26/2024 1:00 PM EST Telemedicine Psychology [place] [facility] [address] [place] [address] 2, [facility] [address] [place] [address] 06/02/2024 1:00 PM EST Telemedicine [facility] [place] [facility] [address] [place] [address] 2, [facility] [address] [place] [address] 06/09/2024 1:00 PM EST Telemedicine [facility] [place] [facility] [address] [place] [address] 2, [facility] [address] [place] [address] 06/30/2024 1:00 PM EST Telemedicine [facility] [place] [facility] [address] [place] [place] [address] 2, [facility] [address] [place] [address] 07/07/2024 1:00 PM EST Telemedicine Psychology [facility] [address] [place] [address] 2, [facility] [address] [place] [address] 07/14/2024 1:00 PM EST Telemedicine Psychology [place], [place] [address] [place] [address] 2, [facility] [address] [place] [address] 07/20/2024 3:00 PM EST Office Visit [facility] 132 [facility] [place] [address] Torri Urbano CRNP 132 [facility] [place] [address] 09/01/2024 3:30 PM EDT Procedure Only Urology, [facility] 132 [facility] [place] [address] Enrique Wall MD [address] [place], [place] [address] 12/14/2024 3:30 PM EDT Office Visit Cardiology, [facility] 132 [facility] [place] [address] Kassandra Sam CRNP 400 [facility] [place] [address] 01/18/2025 3:00 PM EDT Office Visit [facility] 132 [facility] [place] [address] Bandar Bailon DO 132 [facility] [place] [address] Scheduled Procedures Name Priority Associated Diagnoses Date/Ti [...] 05/06/2023, Additional history exists Colonoscopy 02/26/2028 02/25/2023, 0 10/2022, 11/24/2018, Additional history exists Colorectal Cancer [...] this encounter Medical Devices Implanted Type Area Aniline Press Worker Device Identifier Shelf Expiration Date Model / Serial / Lot Graft Lyoplnt 2.5x2.5cm 1x1 - [id number] Implanted:Qty: 1 on 03/07/2022 by Valeriano Hathaway MD at OR [facility] B [place] : ABBEY [id number] 10/20/2026 [id number] / [id number] / [id number] Graft Lyoplnt 2.5x2.5cm 1x1 - [id number] Implanted:Qty: 1 on 03/07/2022 by Valeriano Hathaway MD at OR [facility] B [place] : AESMANUELALAP [id number] 10/20/2026 [id number] / [id number] / [id number] documented as of this encounter Advance Directives [...] the patient have Health Care Power of Assistant City Attorney? No * Full Code Date Activated Date [...] Directives occurred with: Not Discussed Care Teams Manager Wound Relationship Specialty Start Date End Date Bandar Bailon DO [address] [place] [address] PCP - General Family Medicine 10/10/20 documented as of this encounter
--- OUTSIDE RECORDS SUMMARY | 2024-05-10 05:39 | External Medical Summary | Summary of Care ---
Author Name Unknown Organization [facility] Address [address] [place] [address] Phone [phone] Care Team Providers Care Airframe And Power Plant Mechanic Name Role Phone Bandar Bailon Primary Care Provider Reason for Visit * Reason Onset Date Comments Advice 04/01/2024 Hydrocortisone 5 MG Oral Tablet (Cortef) Surgery 04/01/2024 Encounter Details Date Type Department Care Team (Late st Contact Info) Description 04/01/2024 Telephone Endocrinology, [place] [address] [place] [address] Cici Gusman MD [address] [place] [address] Advice (Hydrocortisone 5 MG Oral [...] (=3 months supply). [facility] at [address] [place] [address], [address], [place] [address]. 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 Increased risk for Long QT Syndrome. 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 Please advise her at [phone], option 1 for Stateless and then option 1 again. Ask for [...] Please advise and reach out to patient. [phone] Thank you, Donna Du Manager Of Internal I [facility] ([facility]) 04/01/2024,11:16 AM documented in this encounter Plan of Treatment Upcoming Encounters Date Type Department Care Team (Late st Contact Info) Description 05/10/2024 7:15 AM EST Office Visit [facility], Operating Room, [facility] [address] [facility] [address] Khalif Wall MD [address] [place] [address] 05/12/2024 1:00 PM EST Telemedicine Psychology [facility] [facility] [address] [place] [address] 2, [facility] [address] [place] [address] 05/19/2024 8:40 AM EST Office Visit Pulmonary Medicine, [facility] [address] [place] [address] Rigoberto Lassiter MD [address] [place] [facility] [place] [address] 05/19/2024 1:00 PM EST Telemedicine Psychology [place] [facility] [address] [place] [address] 2, [facility] [address] [place] [address] 05/26/2024 9:30 AM EST Office Visit General Surgery, [facility] [address] [place] [address] Kahlif Wall MD [address] [place] [address] 05/26/2024 1:00 PM EST Telemedicine [facility] [place] [facility] [address] [place] [address] 2, [facility] [address] [place] [address] 06/02/2024 1:00 PM EST Telemedicine [facility] [place] [facility] [address] [place] [address] 2, [facility] [address] [place] [address] 06/09/2024 1:00 PM EST Telemedicine [facility] [facility] [address] [place] [address] 2, [facility] [address] [place] [address] 06/30/2024 1:00 PM EST Telemedicine Psychology [place] [facility] [address] [place] [address] 2, [facility] [address] [place] [address] 07/07/2024 1:00 PM EST Telemedicine Psychology [place] [facility] [address] [place] [address] 2, [facility] [address] [place] [address] 07/14/2024 1:00 PM EST Telemedicine Psychology [place] [facility] [address] [place] [address] 2, [facility] [address] [place] [address] 07/20/2024 3:00 PM EST Office Visit Family Practice [facility] [address] [place] [address] Torri Urbano CRNP [address] [place] [address] 09/01/2024 3:30 PM EDT Procedure Only Urology, [facility] 132 [place] [address] Enrique Wall MD [address] [place] [address] 12/14/2024 3:30 PM EDT Office Visit Cardiology, [facility] [address] [facility] [place] [address] Kassandra Sam CRNP [address] [place] [address] [place] [address] 01/18/2025 3:00 PM EDT Office Visit Family [facility] [address] [place] [address] Bandar Bailon, [address] [place] [address] Scheduled Procedures Name Priority Associated Diagnoses Date/Ti [...] this encounter Medical Devices Implanted Type Area Curatorial Specialist Device Identifier Shelf Expiration Date Model / Serial / Lot Graft Lyoplnt 2.5x2.5cm 1x1 - [id number] Implanted:Qty: 1 on 03/07/2022 by Valeriano Hathaway MD at OR [facility] B K[place] : AESCULAP [id number] 10/20/2026 [id number] / [id number] / [id number] Graft Lyoplnt 2.5x2.5cm 1x1 - [id number] Implanted:Qty: 1 on 03/07/2022 by Valeriano Hathaway MD at OR [facility] B [place] : AESCULAP [id number] 10/20/2026 [id number] / [id number] / [id number] documented as of this encounter Advance Directives [...] the patient have Health Care Power of Osteologist? No * Full Code Date Activated Date [...] Directives occurred with: Not Discussed Care Teams Airframe And Power Plant Mechanic Relationship Specialty Start Date End Date Bandar Bailon DO [address] [place] [address] PCP - General Family Medicine 10/10/20 documented as of this encounter
--- OUTSIDE RECORDS SUMMARY | 2024-05-10 05:39 | External Medical Summary | Summary of Care ---
Author Name Unknown Organization [facility] Address [address] [place] [address] Phone [phone] Care Team Providers Care Addiction Therapist Name Role Phone Bandar Bailon Primary Care Provider Reason for Visit * Reason Onset Date Comments Advice 04/01/2024 Hydrocortisone 5 MG Oral Tablet (Cortef) Encounter Details Date Type Department Care Team (Late st Contact Info) Description 04/01/2024 Telephone [facility] [place] [address] [place] [address] Cici Gusman MD [address] [place] [address] Advice (Hydrocortisone 5 MG Oral [...] each (=3 months supply). [facility] at [address] [place] [address], [address], [place] [address]. 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 Increased risk for Long QT Syndrome. Cardiac [...] 0 Adrenal insufficiency 11/06/20172017 Anesthesia complication 10/13/2017 08/2 08/2021 Overview (10/13/2017): Breathing issues Neuropathy 01/15/2016 12/09/2016 [...] mRNA, LNP-s, No Pre serve, 2-Dose Series (tagWALLET) 04/26/2021,10/20/2020,09/27/2020 COVID-19, MRNA-LNP, PF, 50 M CG/0.5 [...] encounter Miscellaneous Notes * Telephone Encounter - Harshad Krause OSA - 05/07/2024 9:48 AM EST Margy from Dr. Brian Wall's office calling. Pt is scheduled for surgery Friday. She wants to make sure these medication instructions remain the same. Please advise her at [phone], option 1 for Swedish and then option 1 again. Ask for [...] Please advise and reach out to patient. [phone] Thank you, Donna Du Courtesy Bus Driver I [facility] ([facility]) 04/01/2024,11:16 AM documented in this encounter Plan of Treatment Upcoming Encounters Date Type Department Care Team (Late st Contact Info) Description 05/10/2024 7:15 AM EST Office Visit [facility], Operating Room, [place] [address] [facility] [place] [address] Khalif Wall MD [address] [facility] [address] 05/12/2024 1:00 PM EST Telemedicine Psychology [place] [facility] [address] [place] [address] 2, Psychology Group [address] [place] [address] 05/19/2024 8:40 AM EST Office Visit Pulmonary Medicine, [facility] [address] [facility] [place] [address] Rigoberto Lassiter MD [address] [facility] [place] [id number] 05/19/2024 1:00 PM EST Telemedicine Psychology [place] [facility] [address] [place] [address] 2, [facility] [address] [place] [address] 05/26/2024 9:30 AM EST Office Visit General Surgery, [facility] [address] [place] [address] Khalif Wall MD [address] [place] [address] 05/26/2024 1:00 PM EST Telemedicine Psychology [place] [address] [place] [phone] 2, [facility] [address] [place] [address] 06/02/2024 1:00 PM EST Telemedicine [facility] [place] [facility] [address] [place] [address] 2, [facility] [address] [place] [phone] 06/09/2024 1:00 PM EST Telemedicine Psychology [address] [place] [address] [place] [address] 2, [facility] [address] [place] [address] 06/30/2024 1:00 PM EST Telemedicine [facility] [place] [facility] [address] [place] [address] 2, [facility] [address] [place] [address] 07/07/2024 1:00 PM EST Telemedicine Psychology [place] [facility] [address] [place] [address] 2, Psychology [facility] [address] [place] [address] 07/14/2024 1:00 PM EST Telemedicine Psychology [place] [facility] [address] [place] [address] 2, Psychology [facility] [address] [place] [address] 07/20/2024 3:00 PM EST Office Visit [facility] [address] [facility] [place] [address] Torri Urbano CRNP 132 [facility] [place] [address] 09/01/2024 3:30 PM EDT Procedure Only Urology, [facility] 132 [place] [address] Enrique Wall MD [address] [facility] [place] [address] 12/14/2024 3:30 PM EDT Office Visit Cardiology, [facility] [address] [facility] [place] [address] Kassandra Sam CRNP [address] [place], [place] [address] 01/18/2025 3:00 PM EDT Office Visit [facility] 132 [place] [address] Bandar Bailon DO [address] [facility] [place] [address] Scheduled Procedures Name Priority Associated Diagnoses Date/Ti [...] this encounter Medical Devices Implanted Type Area Commodity Management Specialist Device Identifier Shelf Expiration Date Model / Serial / Lot Graft Lyoplnt 2.5x2.5cm 1x1 - [id number] Implanted:Qty: 1 on 03/07/2022 by Valeriano Hathaway MD at [facility] B KIRKP[place] : AESCULAP [id number] 10/20/2026 [id number] / [id number] / [id number] Graft Lyoplnt 2.5x2.5cm 1x1 - [id number] Implanted:Qty: 1 on 03/07/2022 by Valeriano Hathaway MD at OR [facility] B KIRKP[place]RICK : AESCULAP [id number] 10/20/2026 [id number] / [id number] / [id number] documented as of this encounter Advance Directives [...] the patient have Health Care Power of Hvac/R Service Technician? No * Full Code Date Activated Date [...] Directives occurred with: Not Discussed Care Teams Addiction Therapist Relationship Specialty Start Date End Date Bandar Bailon DO [address] [place] [address] PCP - General Family Medicine 10/10/20 documented as of this encounter
--- OUTSIDE RECORDS SUMMARY | 2024-05-10 05:40 | External Medical Summary | Summary of Care ---
Author Name Unknown Organization [facility] Address [address] [facility] [place] [address] Phone [phone] Care Team Providers Care Consulting Systems Engineer Name Role Phone Bandar Bailon DO Primary Care Provider Encounter Details Date Type Department Care Team (Late st Contact Info) Description 05/03/2024 Telephone General Surgery, [facility] [address] [place] [address] Khalif Wall MD [address] [place] [phone] Allergies Active Allergy Reactions Criticality Noted Date Comments Sulfamethoxazole-Trimet hoprim Itching 07/16/2021 Pt noted total body itching within one hour of first dose. Took benedryl and inhaler and stopped med. Codeine Other (Please comment) Medium 04/23/2017 Allergic reaction Other reaction(s): UNSURE REACTION - HAPPENED A CHILD Sulfa Antibiotics High 05/22/2022 Other reaction(s): Swelling of Lip/Tongue/Throat documented as of this encounter (statuses as of 05/03/2024) Medications OXYGEN oxygen at 2 lpm via [...] VIAL 2 mL 6 01/30/20 22 Active Additional Information Patient not taking.Reported on 04/20/2024 Calcium Carb-Cholecalcife rol 600-200 MG-UNIT Oral Tablet Take by mouth 2 Tablets in the morning. 180 Tablet 3 04/04/20 Active Diathrive Pen Needle 31G X 8 MM (Insulin Pen Needle)Indication s:B12 deficiency Use for b-12 injections once monthly as indicated. 30 Each 3 06/06/20 Active Tobramycin Powder Compounded tobramycin 40mg capsules to be added to sinus rinse twice daily. Dispense 180 of each (=3 months supply). [facility] at [address] [place] [address], [place] [address], [place] [address]. 1 g 09/13/19 23 Active Mupirocin 2 % External Ointment (Bactroban) Apply to affected toenail sites once daily. Cover with dry bandage. 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 Increased risk for Long QT Syndrome. 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 Asthma, mild persistent 04/29/2012 Overview (04/29/2012): Allergic component ROBERT (obstructive sleep apnea) 02/01/2010 Overview (03/03/2018): documented as of this encounter (statuses as of 05/03/2024) Resolved Problems Problem Noted Date Diagnosed Date [...] Impacted cerumen 01/25/2010 06/17/2017 Conductive hearing loss 01/25/2010/0 07/2021 documented as of this encounter (statuses as of 05/03/2024) Immunizations Name Administration Dates Next Due COVID-19 mRNA, LNP-s, No Pre serve, 2-Dose Series ([employer]) 04/26/2021,10/20/2020,09/27/2020 COVID-19, MRNA-LNP, PF, 50 M CG/0.5 [...] encounter Miscellaneous Notes * Telephone Encounter - Inna Stewart OSA - 05/03/2024 8:47 AM EST Lmom to return call * Telephone Encounter - Annamaria Vivas LPN - 05/03/2024 8:33 AM EST Could you please call patient and have him come in, he is having hernia surgery and thinks he has another one, he will need to see Dr Wallfirst aid officer, perhaps have some imaging. documented in this encounter Plan of Treatment Upcoming Encounters Date Type Department Care Team (Late st Contact Info) Description 05/05/2024 9:30 AM EST Hospital Encounter [facility] [address] [place] [facility] [place] [address] 05/05/2024 10:00 AM EST Appointment [facility] [address] [place] [facility] [place] [address] 05/05/2024 3:30 PM EST Office Visit Otolaryngology/Head & Neck/Facial Plastic Surgery [address] [place] [facility] [place] [address] Ede Vieira MD [address] [place] [facility] [place] [address] 05/10/2024 7:15 AM EST Office Visit Non [facility], Operating Room, [place] [address] [place] [address] Khalif Wall MD [address] [facility] [place] [address] 05/12/2024 1:00 PM EST Telemedicine Psychology [facility] [address] [place] [address] 2, [facility] [address] [place] [address] 05/19/2024 8:40 AM EST Office Visit Pulmonary Medicine, [facility] [address] [facility] [place] [address] Rigoberto Lassiter MD [address] [place] [facility] [place] [address] 05/19/2024 1:00 PM EST Telemedicine Psychology [facility] [address] [place] [address] 2, [facility] [address] [place] [address] 05/26/2024 9:30 AM EST Office Visit General Surgery, [facility] [address] [facility] [place] [address] Khalif Wall MD [address] [place] [address] 05/26/2024 1:00 PM EST Telemedicine Psychology [facility] [address] [place] [address] 2, [facility] [address] [place] [address] 06/02/2024 1:00 PM EST Telemedicine Psychology [facility] [address] [place] [address] 2, [facility] [address] [place] [address] 06/09/2024 1:00 PM EST Telemedicine Psychology [address], [place] [address] [place] [phone] 2, [facility] [address] [place] [phone] 06/30/2024 1:00 PM EST Telemedicine Psychology [facility] [address] [place] [phone] 2, [facility] [address] [place] [address] 07/07/2024 1:00 PM EST Telemedicine Psychology [facility] [address] [place] [phone] 2, [facility] [address] [place] [phone] 07/14/2024 1:00 PM EST Telemedicine Psychology [facility] [address] [place] [phone] 2, [facility] [address] [place] [phone] 07/20/2024 3:00 PM EST Office Visit Family Practice [facility] [address] [facility] [place] [address] Torri Urbano CRNP [address] [facility] [place] [address] 09/01/2024 3:30 PM EDT Procedure Only Urology, [facility] [address] [facility] [place] [address] Enrique Wall MD [address] [place] [address] 12/14/2024 3:30 PM EDT Office Visit Cardiology, [facility] [address] [facility] [place] [address] Kassandra Sam CRNP [address] [place] [address] 01/18/2025 3:00 PM EDT Office Visit Family Practice [facility] [address] [place] [address] Bandar Bailon, [address] [place] [address] Scheduled Procedures Name Priority Associated Diagnoses Date/Ti [...] this encounter Medical Devices Implanted Type Area Bagging Salvager Device Identifier Shelf Expiration Date Model / Serial / Lot Graft Lyoplnt 2.5x2.5cm 1x1 - [id number] Implanted:Qty: 1 on 03/07/2022 by Valeriano Hathaway MD at [facility] [place] [place] B [place] : [employer] [id number] 10/20/2026 [id number] / [id number] / [id number] Graft Lyoplnt 2.5x2.5cm 1x1 - [id number] Implanted:Qty: 1 on 03/07/2022 by Valeriano Hathaway MD at OR [facility] [place] [place] B [employer] : [employer] [id number] 10/20/2026 [id number] / [id number] / [id number] documented as of this encounter Advance Directives [...] the patient have Health Care Power of [place]? No * Full Code Date Activated Date [...] Directives occurred with: Not Discussed Care Teams Consulting Systems Engineer Relationship Specialty Start Date End Date Bandar Bailon DO [address] [place] [address] PCP - General Family Medicine 10/10/20 documented as of this encounter
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
--- OUTSIDE RECORDS SUMMARY | 2024-05-10 05:40 | External Medical Summary | Summary of Care ---
Author Name Unknown Organization [facility] Address [address] [facility] [place] [address] Phone [phone] Care Team Providers Care Orthopaedic Nurse Name Role Phone Bandar Bailon DO Primary Care Provider Reason for Referral * Precert (Within 10 days (routine)) - Pending Review Specialty Diagnoses / Procedures Referred By Contac t Referred To Contact Radiology Diagnoses Chronic radicular lumbar pain DDD (degenerative disc disease), lumbar Procedures MRI T SPINE WO CONTRAST Arik Santana DO [address] [place] [address] Phone: tel: fax: Referral ID Status Reason Start Date Expiration Date V isits Requested Visits Authorized [id number] Pending Review 03/09/2024 999 999 Reason for Visit * Precert (Within 10 days (routine)) - Pending Review Specialty Diagnoses / Procedures Referred By Contac t Referred To Contact Radiology Diagnoses Chronic radicular lumbar pain DDD (degenerative disc disease), lumbar Procedures MRI T SPINE WO CONTRAST Arik Santana DO [address] [place] [address] Phone: tel: fax: Referral ID Status Reason Start Date Expiration Date V isits Requested Visits Authorized [id number] Pending Review 03/09/2024 999 [id number] Encounter Details Date Type Department Care Team (Latest Contact Info) Description 05/05/2024 8:37 AM EST - 05/05/2024 11:59 PM EST Hospital Encounter EVELYNE, [place] [address] [place] [address] Arrived Discharge Disposition: Home - Self Care [...] each (=3 months supply). [facility] at [facility] [address], [address], [place] [address]. 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 Increased risk for Long QT Syndrome. Cardiac [...] mRNA, LNP-s, No Pre serve, 2-Dose Series ([employer]acon) 04/26/2021,10/20/2020,09/27/2020 COVID-19, MRNA-LNP, PF, 50 M CG/0.5 [...] Sign Reading Time Taken Comments Blood Pressure 138/81 05/05/2024 10:15 AM EST Pulse 100 05/05/2024 10:15 AM EST Temperature - - Respiratory Rate - - Oxygen Saturation 94% 05/05/2024 10:15 AM EST Inhaled Oxygen Concentration - - Weight - - Height - - Body Mass Index - - documented in this encounter Functional Status * Do you have serious difficulty walking or climbing stairs? (5 years old or older) Answer Date of Assessment Author Yes 03/08/2022 8:43 AM EDT Yvonne Lucero RN documented as of this encounter Nursing Notes * Nick Steele RN - 05/05/2024 9:30 AM EST Pacemaker interrogated and set to MRI safe mode using SureScan system prior to scan. Patient taken to room for scan by MRI staff. Pacemaker set back to normal mode using SureScan system post scan. Report to be sent to MRI staff via email and fax. Vital signs remained stable throughout exam. See flowsheets for vital trends. documented in this encounter Plan of Treatment Upcoming Encounters Date Type Department Care Team (Late st Contact Info) Description 05/10/2024 7:15 AM EST Office Visit Non [facility], Operating Room, [place] [address] [place] [facility] [address] Khalif Wall MD 132 [facility] [place] [address] 05/12/2024 1:00 PM EST Telemedicine Psychology [place] [address] [place] [address] 2, Psychology Group [address] [place] [address] 05/19/2024 8:40 AM EST Office Visit Pulmonary Medicine, [facility] [address] [facility] [place] [address] Rigoberto Lassiter MD [address] [place] [address] 05/19/2024 1:00 PM EST Telemedicine Psychology [place] [address] [place] [address] 2, Psychology Group [address] [place] [address] 05/26/2024 9:30 AM EST Office Visit General Surgery, [facility] 132 [facility] [place] [address] Khalif Wall MD 132 [facility] [place] [address] 05/26/2024 1:00 PM EST Telemedicine Psychology [place] [address] [place] [address] 2, Psychology Group [address] [place] [address] 06/02/2024 1:00 PM EST Telemedicine Psychology [place] [address] [place] [address] 2, Psychology Group [address] [place] [address] 06/09/2024 1:00 PM EST Telemedicine Psychology [place] [address] [place] [address] 2, Psychology Group [address] [place] [address] 06/30/2024 1:00 PM EST Telemedicine Psychology [place] [facility] [address] [place] [address] 2, Psychology Group [address] [place] [address] 07/07/2024 1:00 PM EST Telemedicine Psychology [place] [facility] [address] [place] [address] 2, Psychology Group [address] [place] [address] 07/14/2024 1:00 PM EST Telemedicine Psychology [place] [address] [place] [address] 2, Psychology Group [address] [place] [address] 07/20/2024 3:00 PM EST Office Visit Family Practice [facility] 132 [facility] [place] [address] Torri Urbano CRNP [address] [place] [address] 09/01/2024 3:30 PM EDT Procedure Only Urology, [facility] 132 [facility] [place] [address] Enrique Wall MD [address] [place] [address] 12/14/2024 3:30 PM EDT Office Visit Cardiology, [facility] 132 [facility] [place] [address] Kassandra Sam CRNP 400 [facility] [place] [address] 01/18/2025 3:00 PM EDT Office Visit Family Practice [facility] 132 [facility] [place] [address] Bandar Bailon DO 132 [facility] [place] [address] Scheduled Procedures Name Priority Associated Diagnoses Date/Ti [...] this encounter Medical Devices Implanted Type Area Irrigation Worker Device Identifier Shelf Expiration Date Model / Serial / Lot Graft Lyoplnt 2.5x2.5cm 1x1 - [id number] Implanted:Qty: 1 on 03/07/2022 by Valeriano Hathaway MD at OR [facility] [place] : AESCULAP [id number] 10/20/2026 [id number] / [id number] / [id number] Graft Lyoplnt 2.5x2.5cm 1x1 - [id number] Implanted:Qty: 1 on 03/07/2022 by Valeriano Hathaway MD at OR [facility] [place] : AESCULAP [id number] 10/20/2026 [id number] / [id number] / [id number] documented as of this encounter Procedures Procedure Name Priority Date/Time Associated Diagnosis Comments MRI T SPINE WO CONTRAST Routine 05/05/2024 9:50 AM EST Chronic radicular lumbar pain DDD (degenerative disc disease), lumbar documented in this encounter Results * MRI T SPINE WO CONTRAST (05/05/2024 9:50 AM EST) Anatomical Region Laterality Modality Vertebra, Tspine Magnetic Resona nce 05/05/2024 12:2 3 PM EST Impressions 05/05/2024 [...] IMPRESSION IMPRESSION No evidence for tumor recurrence. Arik Santana DO RAD MRI-MRA Final Result documented in this encounter Visit Diagnoses Diagnosis Chronic radicular lumbar pain Thoracic or lumbosacral neuritis or radiculitis, unspecified DDD (degenerative disc disease), lumbar Degeneration of lumbar or lumbosacral intervertebral disc documented in this encounter Advance Directives * [...] the patient have Health Care Power of Weather Strip Mechanic? No * Full Code Date Activated Date [...] Directives occurred with: Not Discussed Care Teams Orthopaedic Nurse Relationship Specialty Start Date End Date Bandar Bailon DO [address] [place] [address] PCP - General Family Medicine 10/10/20 documented as of this encounter
--- OUTSIDE RECORDS SUMMARY | 2024-05-10 05:40 | External Medical Summary | Summary of Care ---
Author Name Unknown Organization [facility] Address [address] [facility] [place] [address] Phone [phone] Care Team Providers Care Drawing Box Tender Name Role Phone BailonRuiBandartwin Garrisonpriyanka Primary Care Provider Reason for Visit * Reason Onset Date Comments Appointment 05/03/2024 Encounter Details Date Type Department Care Team (Late st Contact Info) Description 05/03/2024 Telephone General Surgery, [facility] [address] [place] [address] Khalif Wall MD [address] [place] [address] Appointment Allergies Active Allergy Reactions Criticality Noted Date [...] each (=3 months supply). [facility] at [address] [place] [address], [address], [place] [address]. 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 Increased risk for Long QT Syndrome. Cardiac [...] 0 Adrenal insufficiency 11/06/20172017 Anesthesia complication 10/13/2017 0808/2021 Overview (10/13/2017): Breathing issues Neuropathy 01/15/2016 12/09/2016 [...] mRNA, LNP-s, No Pre serve, 2-Dose Series ([employer]) 04/26/2021,10/20/2020,09/27/2020 COVID-19, MRNA-LNP, PF, 50 M CG/0.5 [...] encounter Miscellaneous Notes * Telephone Encounter - Vira Busch OSA - 05/03/2024 9:41 AM EST Patient called to schedule however there are no appointments available prior to his surgery. Pleaseadvise if patient can be seen. Patient is available today and tomorrow after 3:00 PM, he is available any time on and after 3:00 PM Friday. If you have something close to 3:00 PM patient cansee if he can leave work early. * Telephone Encounter - Inna Stewart OSA - 05/03/2024 8:47 AM EST Lmom to return call * Telephone Encounter - Annamaria Vivas LPN - 05/03/2024 8:33 AM EST Could you please call patient and have him come in, he is having hernia surgery and thinks he has another one, he will need to see Dr Wallfirst coat operator, perhaps have some imaging. documented in this encounter Plan of Treatment Upcoming Encounters Date Type Department Care Team (Late st Contact Info) Description 05/05/2024 9:30 AM EST Hospital Encounter [facility], [address] [address] 05/05/2024 10:00 AM EST Appointment [facility], [address] [address] 05/05/2024 3:30 PM EST Office Visit Otolaryngology/Head & Neck/Facial Plastic Surgery [address] [place] [address] Ede Vieira MD [address] [place] [address] 05/10/2024 7:15 AM EST Office Visit Non [facility], Operating Room, [facility] [address] [place] [facility] [address] Khalif Wall MD 132 [place] [address] 05/12/2024 1:00 PM EST Telemedicine Psychology [place] [address] [place] [address] 2, Psychology Group 9 [place] [address] 05/19/2024 8:40 AM EST Office Visit Pulmonary Medicine, [facility] 132 [place] [address] Rigoberto Lassiter MD [address] [place] [address] 05/19/2024 1:00 PM EST Telemedicine Psychology [place] [address] [place] [address] 2, Psychology Group 9 [place] [address] 05/26/2024 9:30 AM EST Office Visit General Surgery, [facility] 132 [facility] [place] [address] Khalif Wall MD 132 [facility] [place] [address] 05/26/2024 1:00 PM EST Telemedicine Psychology [place] [address] [place] [address] 2, Psychology Group [address] [place] [address] 06/02/2024 1:00 PM EST [facility]medicine [facility] [place] [facility] [address] [place] [address] 2, Psychology Group [address] [place] [address] 06/09/2024 1:00 PM EST Telemedicine Psychology [place] [address] [place] [address] 2, Psychology Group [address] [place] [address] 06/30/2024 1:00 PM EST Telemedicine Psychology [place] [address] [place] [address] 2, Psychology Group [address] [place] [address] 07/07/2024 1:00 PM EST Telemedicine Psychology [place] [address] [place] [address] 2, Psychology Group [address] [place] [address] 07/14/2024 1:00 PM EST Telemedicine Psychology [place] [address] [place] [address] 2, Psychology Group [address] [place] [address] 07/20/2024 3:00 PM EST Office Visit Family Practice [facility] 132 [facility] [place] [id number] Torri Urbano CRNP [address] [place] [address] 09/01/2024 3:30 PM EDT Procedure Only Urology, [facility] [address] [place] [address] Enrique Wall MD [address] [place] [address] 12/14/2024 3:30 PM EDT Office Visit Cardiology, [facility] 132 [facility] [place] [address] Kassandra Sam CRNP 400 [facility] [place] [address] 01/18/2025 3:00 PM EDT Office Visit Family Practice [facility] [place] [address] Bandar Bailon, [address] [place] [address] Scheduled Procedures Name Priority Associated Diagnoses Date/Ti [...] this encounter Medical Devices Implanted Type Area Hospice Music Therapy Device Identifier Shelf Expiration Date Model / Serial / Lot Graft Lyoplnt 2.5x2.5cm 1x1 - [id number] Implanted:Qty: 1 on 03/07/2022 by Valeriano Hathaway MD at OR [facility] [place] : AESMANUELALAP [id number] 10/20/2026 [id number] / [id number] / [id number] Graft Lyoplnt 2.5x2.5cm 1x1 - [id number] Implanted:Qty: 1 on 03/07/2022 by Valeriano Hathaway MD at OR [facility] [place] : AESCULAP [id number] 10/20/2026 [id number] / [id number] / [id number] documented as of this encounter Advance Directives [...] the patient have Health Care Power of Area Development Manager? No * Full Code Date Activated Date [...] Directives occurred with: Not Discussed Care Teams Drawing Box Tender Relationship Specialty Start Date End Date Bandar Bailon DO [address] [place] [address] PCP - General Family Medicine 10/10/20 documented as of this encounter
--- OUTSIDE RECORDS SUMMARY | 2024-05-10 05:40 | External Medical Summary | Summary of Care ---
Author Name Unknown Organization [facility] Address [address] [facility] [place] [address] Phone [phone] Care Team Providers Care Photocopying Machine Operator Name Role Phone Bandar Bailon DO Primary Care Provider Reason for Visit * Reason Comments eRx-Medication Refill Encounter Details Date Type Department Care Team (Late st Contact Info) Description 05/04/2024 Refill Family Practice [facility] [address] [place] [address] Bandar Bialon DO [address] [place] [address] Hereditary and idiopathic peripheral neuropathy Allergies Active Allergy Reactions Criticality Noted Date Comments Sulfamethoxazole-Trimet hoprim Itching 07/16/2021 Pt noted total body itching within one hour of first dose. Took benedryl and inhaler and stopped med. Codeine Other (Please comment) Medium 04/23/2017 Allergic reaction Other reaction(s): UNSURE REACTION - HAPPENED A CHILD Sulfa Antibiotics High 05/22/2022 Other reaction(s): Swelling of Lip/Tongue/Throat documented as of this encounter (statuses as of 05/05/2024) Medications OXYGEN oxygen at 2 lpm via [...] each (=3 months supply). [facility] at [address] [place] [address], [place] [address], [place] [address]. 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 Increased risk for Long QT Syndrome. 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 Asthma, mild persistent 04/29/2012 Overview (04/29/2012): Allergic component ROBERT (obstructive sleep apnea) 02/01/2010 Overview (03/03/2018): documented as of this encounter (statuses as of 05/05/2024) Resolved Problems Problem Noted Date Diagnosed Date [...] as of this encounter (statuses as of 05/05/2024) Immunizations Name Administration Dates Next Due COVID-19 mRNA, LNP-s, No Pre serve, 2-Dose Series ([facility]) 04/26/2021,10/20/2020,09/27/2020 COVID-19, MRNA-LNP, PF, 50 M CG/0.5 [...] encounter Miscellaneous Notes * Telephone Encounter - Deanne Corey [facility] - 05/05/2024 9:09 PM ESTRefused Prescriptions: Disp Refills Pregabalin 150 MG Oral Capsule (Lyrica) 90 Cap*0 Sig: TAKE 1 CAPSULE BY MOUTH IN THE MORNING AND 2 CAPS AT BEDTIMERefused By: DEANNE COREY for Refusal: Not indicatedReason for Refusal Comment: Mail order documented in this encounter Plan of Treatment Upcoming Encounters Date Type Department Care Team (Late st Contact Info) Description 05/06/2024 9:00 AM EST Office Visit General Surgery, [facility] [address] [place] [address] Cristina Silva PA-C [address] [address] 05/10/2024 7:15 AM EST Office Visit [facility], Operating Room, [place] [address] [address] [facility], [place] [address] Khalif Wall MD [address] [place] [address] 05/12/2024 1:00 PM EST Telemedicine Psychology [place] [address] [place] [address] 2, Psychology Group [address] [place] [address] 05/19/2024 8:40 AM EST Office Visit Pulmonary Medicine, [facility] [address] [facility] [place] [address] Rigoberto Lassiter MD [address] [place] [address] 05/19/2024 1:00 PM EST Telemedicine Psychology [place] [address] [place] [address] 2, Psychology Group [address] [place] [address] 05/26/2024 9:30 AM EST Office Visit General Surgery, [facility] [address] [facility] [place] [address] Khalif Wall MD [address] [place] [address] 05/26/2024 1:00 PM EST Telemedicine Psychology [place] [address] [place] [address] 2, Psychology Group [address] [place] [address] 06/02/2024 1:00 PM EST Telemedicine Psychology [place] [address] [place] [address] 2, Psychology Group [address] [place] [address] 06/09/2024 1:00 PM EST Telemedicine Psychology [place] [address] [place] [address] 2, Psychology Group [address] [place] [address] 06/30/2024 1:00 PM EST Telemedicine Psychology [place] [address] [place] [address] 2, Psychology Group [address] [place] [address] 07/07/2024 1:00 PM EST Telemedicine Psychology [place] [address] [place] [address] 2, Psychology Group [address] [place] [address] 07/14/2024 1:00 PM EST Telemedicine Psychology [place] [address] [place] [address] 2, Psychology Group [address] [place] [address] 07/20/2024 3:00 PM EST Office Visit Family Practice [facility] 132 [facility] [place] [address] Torri [facility]rb[facility] CRNP [facility] [address] 09/01/2024 3:30 PM EDT Procedure Only Urology, [facility] 132 [place] [address] Enrique Wall MD 27 [facility] [place] [address] 12/14/2024 3:30 PM EDT Office Visit Cardiology, [facility] [address] [facility] [place] [address] Kassandra Sam CRNP [address] [facility] [place] [address] 01/18/2025 3:00 PM EDT Office Visit Family Practice [facility] [address] [place] [address] Bandar Bailon DO [address] [place] [address] Scheduled Procedures Name Priority Associated Diagnoses Date/Ti [...] this encounter Medical Devices Implanted Type Area Filler Shaker Device Identifier Shelf Expiration Date Model / Serial / Lot Graft Lyoplnt 2.5x2.5cm 1x1 - [id number] Implanted:Qty: 1 on 03/07/2022 by Valeriano Hathaway MD at OR [facility] B [place] : AESCULAP [id number] 10/20/2026 [id number] / [id number] / [id number] Graft Lyoplnt 2.5x2.5cm 1x1 - [id number] Implanted:Qty: 1 on 03/07/2022 by Valeriano Hathaway MD at OR [facility] B [place] : AESCULAP [id number] 10/20/2026 [id number] / [id number] / [id number] documented as of this encounter Visit Diagnoses Diagnosis Hereditary and idiopathic peripheral neuropathy Unspecified hereditary and idiopathic peripheral neuropathy documented in this encounter Advance Directives * [...] the patient have Health Care Power of Bench Loom Weaver? No * Full Code Date Activated Date [...] Directives occurred with: Not Discussed Care Teams Photocopying Machine Operator Relationship Specialty Start Date End Date Bandar Bailon DO [address] [place] [address] PCP - General Family Medicine 10/10/20 documented as of this encounter
--- OUTSIDE RECORDS SUMMARY | 2024-05-10 05:40 | External Medical Summary | Summary of Care ---
Author Name Unknown Organization [facility] Address [address] [facility] [place] [address] Phone [phone] Care Team Providers Care Heel Padder Name Role Phone BailonRuiBandartwin Garrisonpriyanka Primary Care Provider Reason for Visit * Reason Onset Date Comments Appointment 05/03/2024 Encounter Details Date Type Department Care Team (Late st Contact Info) Description 05/03/2024 Telephone General Surgery, [facility] [address] [place] [address] Khalif Wall MD [address] [place] [address] Appointment Allergies Active Allergy Reactions Criticality Noted [...] each (=3 months supply). [facility] at [address] [place] [address], [address], [place] [address]. 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 Increased risk for Long QT Syndrome. Cardiac [...] mRNA, LNP-s, No Pre serve, 2-Dose Series ([employer]) 04/26/2021,10/20/2020,09/27/2020 COVID-19, MRNA-LNP, PF, 50 M CG/0.5 [...] Encounter - Inna Stewart OSA - 05/03/2024 3:13 PM EST Scheduled to see Cristina on 05/06/24. * Telephone Encounter - Vira Busch OSA [...] one, he will need to see Dr Wallsurgical first assistant, perhaps have some imaging. documented in this encounter Plan of Treatment Upcoming Encounters Date Type Department Care Team (Late st Contact Info) Description 05/05/2024 9:30 AM EST Hospital Encounter [facility] [address] [facility] [place] [address] 05/05/2024 10:00 AM EST Appointment [facility] [address] [facility] [place] [address] 05/05/2024 3:30 PM EST Office Visit Otolaryngology/Head & Neck/Facial Plastic Surgery [address] [facility] [place] [address] Ede Vieira MD [address] [place] [facility] [place] [address] 05/06/2024 9:00 AM EST Office Visit General Surgery, [facility] [address] [facility] [place] [address] Cristina Silva PA-C [address] [place] [address] 05/10/2024 7:15 AM EST Office Visit Non [facility], Operating Room, [facility] [address] [place] [facility] [place] [address] [facility] [address] 05/12/2024 1:00 PM EST Telemedicine Psychology [facility] [place] [address] [place] [address] 2, [facility] [address] [place] [address] 05/19/2024 8:40 AM EST Office Visit Pulmonary Medicine, [facility] [address] Rigoberto Lassiter MD [address] [place] [address] 05/19/2024 1:00 PM EST Telemedicine Psychology [facility] [address] [place] [phone] 2, [facility] [address] [place] [address] 05/26/2024 9:30 AM EST Office Visit General Surgery, [facility] [address] [place] [address] Khalif Wall MD [address] [place] [address] 05/26/2024 1:00 PM EST Telemedicine Psychology [facility] [address] [place] [phone] 2, [facility] [address] [place] [phone] 06/02/2024 1:00 PM EST [facility] [place] [facility] [address] [place] [phone] 2, [facility] [address] [place] [address] 06/09/2024 1:00 PM EST [facility]icine [facility] [place] [facility] [address] [place] [phone] 2, [facility] [address] [place] [address] 06/30/2024 1:00 PM EST Telemedicine [facility] [facility] [address] [place] [phone] 2, [facility] [address] [place] [address] 07/07/2024 1:00 PM EST Telemedicine Psychology [place] [facility] [address] [place] [phone] 2, [facility] [address] [place] [phone] 07/14/2024 1:00 PM EST Telemedicine Psychology [facility] [address] [place] [phone] 2, [facility] [address] [place] [address] 07/20/2024 3:00 PM EST Office Visit [facility] [address] [facility] [place] [address] Torri Urbano CRNP [address] [facility] [place] [address] 09/01/2024 3:30 PM EDT Procedure Only Urology, [facility] [address] [facility] [place] [address] En[facility] [address] 12/14/2024 3:30 PM EDT Office Visit Cardiology, [facility] [address] [facility] [place] [address] Kassandra Sam CRNP [address] [facility] [place], [place] [id number] 01/18/2025 3:00 PM EDT Office Visit [facility] [address] [facility] [place] [address] Bandar Bailon DO [address] [facility] [place] [address] Scheduled Procedures Name Priority Associated Diagnoses Date/Ti [...] this encounter Medical Devices Implanted Type Area Hydrotherapist Device Identifier Shelf Expiration Date Model / Serial / Lot Graft Lyoplnt 2.5x2.5cm 1x1 - [id number] Implanted:Qty: 1 on 03/07/2022 by Valeriano Hathaway [place] [facility] : [employer] [id number] 10/20/2026 [id number] / [id number] / [id number] Graft Lyoplnt 2.5x2.5cm 1x1 - [id number] Implanted:Qty: 1 on 03/07/2022 by Valeriano Hathaway MD at OR [facility] [place] : ODALYSRAJAN [id number] 10/20/2026 [id number] / [id number] / [id number] documented as of this encounter Advance Directives [...] the patient have Health Care Power of Bag Bailer? No * Full Code Date Activated Date [...] Directives occurred with: Not Discussed Care Teams Heel Padder Relationship Specialty Start Date End Date Bandar Bailon DO [address] [place] [address] PCP - General Family Medicine 10/10/20 documented as of this encounter
--- OUTSIDE RECORDS SUMMARY | 2024-05-10 05:40 | External Medical Summary | Summary of Care ---
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 [facility] at [address] [place] [address], [address], [place] [address]. 1 g 09/13/19 23 Active Mupirocin 2 [...] Overview (03/18/2018): pathogenic KCNQ1 gene variant (c.[id number], p.[id number]) detected via [employer]. Increased risk for Long QT Syndrome. Cardiac [...] mRNA, LNP-s, No Pre serve, 2-Dose Series ([employer]) 04/26/2021,10/20/2020,09/27/2020 COVID-19, MRNA-LNP, PF, 50 M CG/0.5 [...] Industry Job Start Date Job End Date [facility] Not on file Not on file Not on file documented as of this encounter Last Filed Vital Signs Vital Sign Reading Time Taken Comments Blood Pressure - - Pulse - - Temperature 36.7 C (98.1 F) 05/05/2024 12:[address] Respiratory Rate - - Oxygen Saturation - - Inhaled Oxygen Concentration - - Weight - - Height - - Body Mass Index - - documented in this encounter Functional Status * Do you have serious difficulty walking or climbing stairs? (5 years old or older) Answer Date of Assessment Author Yes 03/08/2022 8:43 AM EDT Yvonne Lucero RN documented as of this encounter Progress Notes * Ede Vieira MD - 05/05/2024 12:37 PM EST Images from the original note were not included. [facility] Rhinology & Endoscopic Skull Base Surgery Otolaryngology - Head & Neck Surgery Ede Vieira MD Patient Name: Félix De La O Visit Date: 05/05/24 : 1955 Referred by: Dr. Hathaway Primary Provider: Bandar Bailon DO Chief Complaint: pituitary macroadenoma History of present illness: Félix De La O is a very pleasant 69 year old male who works part-time at [employer], referred by of Neurosurgery for transnasal transphenoidal surgery for a pituitary adenoma. When he and I first met by telemedicine on 02/27/22, we reviewed: the patient initially presented with recurrent syncopal episodes. The patient underwent imaging which demonstrated a 1.2 cm hypoenhancing sellar mass. A prolactin level was obtained 09/19/18 and was mildly elevated at 28.4. The patient was recently seen in neuroendocrine multidisciplinary clinic. He continues to follow with Dr. Chun of neuro ophthalmology, and obtains routine surveillance HVF/OCT testing, with progressive visual field changes on recent evaluation. Of note, he also has a pacemaker. Félix De La O has been referred to our clinic to assist with the endonasal approach and reconstruction. The patient is scheduled for surgery with myself and Dr. Hathaway on 03/07/2022. We are meeting today to discuss my role in the surgery and to review relevant sinonasal history. The patient reports a history of intermittent nasal obstruction (depending on the weather). He denies facial pain/pressure or thick nasal discharge or loss of sense of smell. The patient denies a history of septoplasty. He believes he had polyps removed many years ago, but he is unsure if these were sinus polyps or vocal cord polyps. The patient has a history of ROBERT, does use biPAP. Date of Procedure: 03/07/22 Diagnosis: Pituitary Lesion Procedure: 1. Endoscopic transnasal transphenoidal approach to pituitary lesion with stereotactic image guidance, including posterior septectomy and bilateral sphenoidotomies 2. Bilateral partial ethmoidectomy 3. Right middle turbinate yaquelin bullosa excision 4. Outfracture of inferior turbinates bilaterally 5. Free graft reconstruction of skull base defect 6. Intradural Frameless Stereotactic Image Guidance Operative Findings: 1. Endonasal approach to the pituitary lesion via transnasal transsphenoidal corridor. 2. Entrance to sellar lesion demonstrated pituitary lesion, which was noted to be hemorrhagic and somewhat necrotic, now status post resection. 3. Specimen sent for permanent histopathological evaluation, frozen consistent with pituitary adenoma. 4. Preservation of bilateral nasoseptal flaps via rescue flap incision and technique. 5. Utilization free mucosal graft from the right-sided middle turbinate (yaquelin bullosa) for skull base defect repair. 6. No evidence of acute sinonasal infection throughout. 03/18/22: The patient has done well since surgery; pain controlled, some expected bleeding, no clear fluid rhinorrhea, no concerning vision changes, no fevers/neck stiffness, no salty/metalic taste. The patient is using saline irrigations TID. 04/15/22: The patient has done well since surgery; pain controlled, no clear fluid rhinorrhea, no concerning vision changes, no fevers/neck stiffness, no salty/metalic taste. The patient is using saline irrigations TID. 05/24/22: He has continued to overall do well, no clear fluid rhinorrhea, no concerning vision changes, no fevers/neck stiffness, no salty/metalic taste. He has, however, noticed discolored nasal drainage, thick, dark olsen to green to yellow, anteriorly, and sometimes posteriorly. He had stopped doing his saline rinses for about a month before these symptoms started, but he has resumed doing themthe last few days. His PCP gave him a 5 day course of prednisone and a 10 day course of augmentin, the latter of which he is still taking. 05/30/22: We are meeting by phone today to review culture results. He tells me his symptoms are unchanged from our last visit. 07/10/22: Félix tells me he had a fall recently at work and did fall on his face. He notes that hehas a nose bleed from the fall but was able to stop quickly by himself. He is noting an increase ofPND. No salty/metallic taste. No clear/watery anterior rhinorrhea. He describes his post-nasal drainage as thick and yellow. He continues with saline spray in his nasal cavity as needed. No WILL. No fevers. No light sensitivity. 07/17/22: I called the patient at the phone number listed to review culture results (pasted below). He was not available, so I discussed the results and plans with his niece, Nancy, who has previouslybeen involved in his care, and whom I have been given permission by the patient to speak with regarding all aspects of his care. Results discussed. Augmentin x14 days prescribed. Risks reviewed. Plans reviewed. All questions answered to the best of my ability. 09/12/22: He has had discolored nasal crusting/drainage recently. He has had multiple cultures withStaphylococcus aureus and Haemophilus influenzae s/p prescriptions for Augmentin in April, doxy in May, and Augmentin in June. He describes his post-nasal drainage as thick and yellow. He has not been using saline rinses. No reported WILL, fevers, light sensitivity, clear/watery anterior rhinorrhea, salty/metallic taste. 12/18/22: No red flag symptoms. Tobra irrigations completed with no concerns. He does get an occasional phlegm that he is able to expel from the back of his throat. He continues with Mometasone irrigations about once daily. Improved nasal symptoms. Recent RAST testing was drawn (positive mold allergy). Today, 05/05/24: he is overall doing well. He has had issues with dizziness when getting up from sitting/lying down and walking, same as 2 years ago when evaluated by the balance center and found to be unlikely to be vestibular- related. 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 No sinonasal complaints. Irrigating occasionally. Past Medical, Surgical, and Social History: Reviewed. 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) Gastroesophageal reflux disease with esophagitis NSVT (nonsustained ventricular tachycardia) (HCC) AVNRT (AV maureen re-entry tachycardia) (HCC) Seizure disorder, simple partial, without intractable epilepsy (HCC) Hyperfunction of pituitary gland (HCC) Functional voice disorder Psychosocial stressors Hyperprolactinemia (HCC) Dyslipidemia Secondary adrenal insufficiency (HCC) S/P transsphenoidal hypophysectomy (HCC) Obesity, Class I, BMI 30.0-34.9 (see actual BMI) SVT (supraventricular tachycardia) (HCC) Crohn's disease of small intestine without complication (HCC) Adrenal disease (HCC) Left inguinal hernia Dizziness SOB (shortness of breath) Chest pain Bilateral impacted cerumen Family History: Reviewed. Medications and Medication Allergies: Reviewed. Review of Systems: Negative except as documented in HPI, PMH, and Problem List. Physical Examination: Temp 36.7 C (98.1 F) (Infrared ) General appearance is well, with no signs of distress. Head/Face: Normocephalic, atraumatic. Facial function is intact and symmetric. Eyes: No periorbital edema, extraocular movements intact. No nystagmus. Pupils equal. Normal conjunctivae and lids. Ears: External ears are healthy. Oral Cavity and Oropharynx: no discolored drainage from the nasopharynx. Larynx: presbylarynx. Respiratory: Breathing comfortably, with no stertor or stridor. Skin: No vascular lesions or rashes on the face or the neck. Neurologic: CN3-7 grossly intact. Psychiatric: Appropriate affect. Procedure: Rigid nasal endoscopy with sinonasal debridement Pre-procedure diagnosis/Indication for procedure: In the context of the patient's clinical presentation, nasal endoscopy was performed for diagnostic evaluation of the sinonasal passages, including inspection of the interior of the nasal cavity, the middle and superior meatus, the turbinates, and the spheno-ethmoid recess and to post-operatively debride the sinonasal cavity as indicated. Anesthesia: none Complications: None Description: After verbal consent, topical anesthesia was instilled. A 30-degree 3mm rigid nasal endoscope was used to examine the left and right nasal cavities. The inferior and middle turbinates were evaluated.The middle and superior meati and the sphenoethmoid recesses were examined and inspected for mucopurulence, polyps, or neoplasm. The nasopharynx and fossae of Rosenmueller were inspected. Sinonasal debridement was carried out as indicated below. The endoscope was withdrawn. The patient tolerated the procedure well, without complications. Findings: Nasal cavity: The nasal mucosa is healthy appearing bilaterally Nasal septum: The septum is straight. Inferior turbinates:mildly hypertrophied. Sinoasal cavity: Middle meatus: Right middle turbinate surgically absent. Left middle turbinate present. Superior meatus and spheno-ethmoid recess: Sphenoid cavity healthy appearing, healed well. No clearfluid egress. Nasopharynx: clear. The Eustachian orifices are not obstructed. No cysts are noted. No signs of inflammation or infection are seen. The patient tolerated the procedure well. No bleeding. I, Ede Vieira, performed the above documented procedure. Imaging: I personally viewed the MR scan from 07/09/22, and the images/findings were reviewed with the patient. Aerosolized secretions, inflammation, and crusting in sphenoid sinus. MRs from 01/2024 and 05/05/24 imaging personally viewed and sinonasal findings reviewed with the patient: mild bilateral maxillary mucosal thickening with non- obstructive MRCs (right maxillary in January and left maxillary noted on the 05/05/24 MR). Mild scattered ethmoid mucosal thickening. Post-surgical changes, as expected. No obstructive pathology noted. EXAM MRI SELLA [place] W WO CONTRAST02/12/2024 11:36 am HISTORY s/p tss for adenoma resection; assess for recurrence. COMPARISON Comparison is made with the prior MRI dated 02/26/2023. TECHNIQUE Routine protocol MRI of the sella was performed with and without the administration of IV gadolinium. FINDINGS Again noted are the postsurgical changes of transsphenoidal resection of a pituitary macroadenoma with partial opacification of the sphenoid sinuses. The infundibulum is deviated to the right, not significantly changed. There is residual pituitary tissue seen along the floor of the sella, similar in appearance to the prior study. No recurrent tumor is identified. There are no foci of restricted diffusion. There is mild proportional enlargement of the ventriclesand sulci, consistent with mild global volume loss. The ventricles are similar in size to the priorMRI. There are nonspecific subcortical and periventricular foci of T2/FLAIR hyperintensity, similarin pattern and distribution compared to the prior MRI given differences in technique. The basal cisterns are patent. There is no significant mass effect or midline shift. There is mild mucosal thickening of the right ethmoid air cells. There is a small retention cyst within the left maxillary sinus. There is mild to moderate mucosal thickening of the right maxillary sinus, increased from the prior MRI. The mastoid air cells are clear. IMPRESSION IMPRESSION 1. Postsurgical changes of transsphenoidal resection of a pituitary macroadenoma. No recurrent tumor is identified. 2. Nonspecific cerebral white matter foci of T2/FLAIR hyperintensity, similar in pattern and distribution compared to the prior MRI given differences in technique. 3. Additional findings as described above. EXAM BRAIN MRI, MRA A WITH AND WITHOUT CONTRAST HISTORY History of macro adenoma assess for stability history of A-comm aneurysm COMPARISON MRI of 03/08/2022 TECHNIQUE Brain MRI: Axial T2 (fat saturated), T2*, FLAIR, diffusion-weighted, pre-and postcontrast T1, coronal T2, pre-and post contrast sagittal T1 and post contrast coronal T1 weighted sequences were obtained. Brain MRA: 3-D [id number] acquisitions (single and multi-slab) were obtained. Axial reconstructed as well as maximum intensity projected reformatted images were created from the MRA data. FINDINGS BRAIN MRI: Transsphenoidal resection of pituitary macro adenoma. Fluid in the surgical bed. No restricted diffusion. There is interval resection of the adenoma. The pituitary gland is smaller than on prior study. There is fat packing in the sphenoid sinus anterior to the sellar floor. Each Meckel's cave is normal. Artifact is normal. Pituitary gland is normal. BRAIN MRA: There is a tiny prominence in the anterior communicating artery which may represent a 1-2 mm aneurysm in is unchanged from prior study the A2 segment of the right SHYANN originates from the left. Each ICA is normal. Each EMBOSSING TOOL SETTER is normal. Basilar artery is normal. Left vertebral artery is dominant and normal. Each vertebral artery is normal. Each PICA is normal. IMPRESSION IMPRESSION Postsurgical changes for resection of pituitary macro adenoma. The pituitary gland is smaller than on the preoperative study. There is a focal area of hypoenhancement within the pituitary gland whichrepresents in the surgical bed. There is no mass effect upon the optic chiasm. A short-term imagingfollow-up is recommended since recent postoperative changes preclude complete evaluation of this region. I previously personally reviewed the MR scan from 03/08/2022, and the images/findings were reviewed with the patient. No gross residual tumor. Reconstruction in good position. Packing present. MRI BRAIN W WO CONTRAST - 03/08/2022 2:47 pm HISTORY s/p transphenoidal tumor rsxn COMPARISON MR brain from 02/21/2022 TECHNIQUE Procedure: Multi-planar multi-sequential imaging obtained through the brain before and after administration of IV contrast. FINDINGS Since the prior exam there are interval postop changes of transnasal approach for resection of the pituitary mass. There are changes of repair of sellar floor. No gross residual tumor is appreciated considering postop changes the optic chiasm is less displaced. No solid extra-axial mass is identified. No abnormal extra-axial fluid is detected. The basilar cisterns are clear. The brain volume is within normal limits for age, and the ventricles are of normal size and contour. There are mildly extensive scattered foci of T2 hyperintensity in the cerebral white matter most commonly reflecting chronic small vessel ischemic change. The major central cerebral arterial and dural venous sinus flow voids are maintained. Midline structures otherwise appear normally developed and positioned. The craniocervical junction appears normal. Small air-fluid levels noted in the maxillary sinuses. The middle ear cavities are grossly clear. The visualized portions of the orbits and facial soft tissues are unremarkable. IMPRESSION IMPRESSION Expected postop changes following transsphenoidal hypophysectomy for pituitary tumor resection. I previously personally reviewed the CT scan from 02/28/2022. Large R yaquelin bullosa. Bilateral interlamellar cell of the MTs. Leftward septal deviation with septal spur. Some mild mucosal thickening at the inferior aspects of maxillaries. Mild scattered ethmoid mucosal thickening. Sphenoid with asymmetric lateral recess pneumatization, L>R. EXAM CT SINUS IMAGE GUIDED WO CONTRAST02/28/2022 1:28 pm HISTORY For surgical use with image guidance, thin cuts of 0.625mm thickness axial slices are needed including vertex of head to maxillary teeth, STEALTH PROTOCOL, with coronal and sagittal (0.625mm) reformats. No gantry tilt allowed. TECHNIQUE CT images were acquired through the paranasal sinuses and coronal and sagittal reformats were generated. COMPARISON None. FINDINGS There are no air-fluid levels to suggest acute sinusitis. Minor soft tissue thickening is noted at the bases of the maxillary sinuses including in association with a few of the roots of the right maxillary molar teeth which project into the base of the sinus. The ostiomeatal unit on the right is gume rowed by soft tissue. The left is patent. The frontal sinus on the right is hypoplastic. The left frontal recess is clear. The sphenoethmoidal recesses are clear. There is leftward nasal septal deviation and a leftward pointing nasal septal spur. A right-sided sphenoid sinus septum inserts anteriorto the carotid canal. The right cribriform fossa is 2 mm deeper than the left. The mastoid air cells are clear. The intracranial compartment and orbits are unremarkable in appearance. IMPRESSION IMPRESSION 1. No acute sinusitis. 2. Soft tissue thickening narrows the right ostiomeatal unit. 3. Leftward nasal septal deviation and leftward pointing nasal septal spur. I previously personally reviewed the MR scan from 02/21/2022, and the images/findings were reviewed with the patient. The MR shows a 1.8cm pituitary macroadenoma optic chiasm impingement. EXAM MRI scan of the brain without and with intravenous contrast, localization protocol - 02/21/2022. HISTORY 67 years old male with pituitary macroadenoma scheduled for surgery. TECHNIQUE Multiplanar multisequential pre and postcontrast images of the brain were performed as per localization protocol. COMPARISON MRI scan of the brain and sella dated 05/31/2020 and outside MRI scan of the brain and sella dated 06/26/2021. FINDINGS No significant interval changes are identified compared to the most recent MRI scan. Again seen is a pituitary macroadenoma measuring up to 18 mm in the greatest craniocaudal dimension, which extendsinto the suprasellar cistern and is causing impingement of the optic chiasm. No additional significant intracranial abnormalities are demonstrated on this limited study. The kake ocular lenses weresurgically replaced; otherwise, intraorbital contents are within normal limits. The paranasal sinuses and mastoid air cells are clear and well aerated. IMPRESSION IMPRESSION 1. Limited study performed specifically for preoperative localization and intraoperative navigation. Known 18 mm pituitary macroadenoma, which is causing impingement of the optic chiasm. Please, refer to prior MRI scans for full details. Pathology: A, B. Pituitary mass, transsphenoidal resection: -- Pituitary adenoma. -- See Synoptic Data. -- See comment. Comment: The tumor cells are weakly positive for follicle stimulating hormone immunostain. Correlation with serum hormones is recommended. Clinic Culture 05/24/22: Culture Growth Moderate Staphylococcus aureus Abnormal Moderate Haemophilus influenzae Abnormal Beta-Lactamase Detected Multiple other species of aerobic bacteria. No further workup routinely performed No anaerobic growth. Stain Description Abnormal Many Polymorphonuclear leukocytes Many Gram positive bacilli in palisades Few Gram positive cocci in clusters Resulting Agency: [facility] Staphylococcus aureus MICROBROTH DILUTIONS Clindamycin Susceptible Erythromycin Susceptible Oxacillin Susceptible Penicillin G Resistant Tetracycline Susceptible Trimeth/Sulfamethoxazole Susceptible Vancomycin Susceptible Clinic Culture 07/10/22: Culture Growth Many Staphylococcus aureus Abnormal Few Haemophilus influenzae Abnormal Beta-Lactamase Detected Moderate growth of normal jeff. No anaerobic growth. Stain Description No polymorphonuclear leukocytes seen Many Gram positive cocci in clusters Occasional Gram positive bacilli Resulting Agency: [facility] Staphylococcus aureus MICROBROTH DILUTIONS Clindamycin Susceptible Erythromycin Susceptible Oxacillin Susceptible Penicillin G Resistant Tetracycline Susceptible Trimeth/Sulfamethoxazole Susceptible Vancomycin Susceptible Blood work: ALLERGEN [facility] IGE PROFILE Component Ref Range & Units 3 wk ago Mite Pteronyssinus IgE <0.10 kUa/L <0.10 Mite Farinae IgE <0.10 kUa/L <0.10 Cat Dander IgE <0.10 kUa/L <0.10 Dog Dander IgE <0.10 kUa/L <0.10 [place] Grass IgE <0.10 kUa/L <0.10 [place] Grass IgE <0.10 kUa/L <0.10 Penicillium Notatum IgE <0.10 kUa/L <0.10 Cladosporium IgE <0.10 kUa/L <0.10 Aspergillus IgE <0.10 kUa/L <0.10 Alternaria IgE <0.10 kUa/L 0.51 Class 1: Low Level Allergen Specific IgE (Class 1) Helminthosporium IgE <0.10 kUa/L 0.17 Pullularia IgE <0.10 kUa/L <0.10 Acremonium Kiliense IgE <0.10 kUa/L <0.10 [place] Maple IgE <0.10 kUa/L <0.10 Birch IgE <0.10 kUa/L <0.10 [place] IgE <0.10 kUa/L <0.10 Elm IgE <0.10 kUa/L <0.10 [place] Tree IgE <0.10 kUa/L <0.10 [place] IgE <0.10 kUa/L <0.10 White Jj IgE <0.10 kUa/L <0.10 Pecan Beadle IgE <0.10 kUa/L <0.10 Common Ragweed IgE <0.10 kUa/L 0.12 Mugwort IgE <0.10 kUa/L <0.10 Chinese Plantain IgE <0.10 kUa/L <0.10 [place] IgE <0.10 kUa/L <0.10 Cocklebur IgE <0.10 kUa/L <0.10 Pigweed IgE <0.10 kUa/L <0.10 Sheep [place] IgE <0.10 kUa/L <0.10 Resulting Agency [facility] [place] Collected: 11/27/22 15:06 Last Resulted: 11/28/22 11:30 Impression: ICD-10-CM 1. S/P transsphenoidal selective adenomectomy Z98.890 Z86.018 2. S/P sinus surgery Z98.890 3. Pituitary macroadenoma (HCC) D35.2 Plan: I discussed the history and findings of the examination with the patient in detail. The patient is doing well post-operatively and has healed well. Prolonged crusting has resolved. - He has had issues with dizziness when getting up from sitting/lying down and walking, same as 2 years ago when evaluated by the balance center and found to be unlikely to be vestibular-related. 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 If ongoing concerns, we can re-refer to balance center if needed. - No sinonasal complaints. No cocerning sinonasal inflammation on recent MR imaging. No surgical intervention indicated. Irrigating occasionally. May use saline irrigations as needed. - Follow-up with Dr. Hathaway as planned. - Follow-up with me as needed. The patient was provided the opportunity and time to ask questions. All questions were answered to the best of my ability. I spent a total of 30 min on the date of service in preparation, delivery, and documentation of thecare provided to Félix De La O excluding any time spent in the performance of separately billed services.\\ Ede Vieira MD Rhinology & Endoscopic Skull Base Surgery Department of Otolaryngology - Head & Neck Surgery CC: DO Dr. Rivas Lobato documented in this encounter Plan of Treatment Upcoming Encounters Date Type Department Care Team (Late st Contact Info) Description 05/06/2024 9:00 AM EST Office Visit General Surgery, [facility] [address] [facility] [place] [address] Cristina Silva PA-C [facility] [place] [address] 05/10/2024 7:15 AM EST Office Visit [facility], Operating Room, [facility] [address] [place] [address] Khalif Wall MD [address] [facility] [place] [place] [address] 05/12/2024 1:00 PM EST Telemedicine Psychology [facility] [facility] 9 [place] [address] 2, Psychology Group 9 [place] [address] 05/19/2024 8:40 AM EST Office Visit Pulmonary Medicine, [facility] 132 [facility] [place] [address] Rigoberto Lassiter MD [address] [place] [address] 05/19/2024 1:00 PM EST Telemedicine Psychology [place] [facility] [address] [place] [phone] 2, Psychology Group [address] [place] [phone] 05/26/2024 9:30 AM EST Office Visit General Surgery, [facility] [address] [facility] [place] [address] Khalif Wall MD [address] [place] [address] 05/26/2024 1:00 PM EST Telemedicine Psychology [place] [address] [place] [phone] 2, Psychology Group [address] [place] [phone] 06/02/2024 1:00 PM EST Telemedicine Psychology [place] [facility] [address] [place] [phone] 2, Psychology Group [address] [place] [address] 06/09/2024 1:00 PM EST Telemedicine Psychology [place] [facility] [address] [place] [phone] 2, Psychology Group [address] [place] [address] 06/30/2024 1:00 PM EST Telemedicine Psychology [place] [facility] [address] [place] [address] 2, Psychology Group [address] [place] [phone] 07/07/2024 1:00 PM EST Telemedicine Psychology [place] [address] [place] [address] 2, Psychology Group [address] [place] [address] 07/14/2024 1:00 PM EST Telemedicine Psychology [place] [facility] [address] [place] [address] 2, Psychology Group [address] [place] [address] 07/20/2024 3:00 PM EST Office Visit [facility] [address] [facility] [place] [address] Torri Urbano CRNP 132 [facility] [place] [address] 09/01/2024 3:30 PM EDT Procedure Only Urology, [facility] [address] [facility] [place] [address] Enrique Wall MD 27 [facility] [place] [phone] 12/14/2024 3:30 PM EDT Office Visit Cardiology, [facility] [address] [facility] [place] [address] Kassandra Sam CRNP 400 [facility] [place] [phone] 01/18/2025 3:00 PM EDT Office Visit [facility] [address] [facility] [place] [address] Bandar Bailon DO 132 [facility] [place] [address] Scheduled Procedures Name Priority Associated Diagnoses Date/Ti [...] this encounter Medical Devices Implanted Type Area Director Decision Support Device Identifier Shelf Expiration Date Model / Serial / Lot Graft Lyoplnt 2.5x2.5cm 1x1 - [id number] Implanted:Qty: 1 on 03/07/2022 by Valeriano Hathaway [place] [facility] [place] : ABBEY [id number] 10/20/2026 [id number] / [id number] / [id number] Graft Lyoplnt 2.5x2.5cm 1x1 - [id number] Implanted:Qty: 1 on 03/07/2022 by Valeriano Hathaway MD [place] [facility] [place] KIRKPATRICK : TAMIKOJazlyn [id number] 10/20/2026 [id number] / [id number] / [id number] documented as of this encounter Visit Diagnoses Diagnosis S/P transsphenoidal selective adenomectomy- Primary Other postprocedural status Imbalance Abnormality of gait Dizziness Dizziness and giddiness documented in this encounter Advance Directives * [...] the patient have Health Care Power of Money Room Supervisor? No * Full Code Date Activated Date [...] Directives occurred with: Not Discussed Care Teams Plastics Seasoner Operator Relationship Specialty Start Date End Date Bandar Bailon DO [address] [place] [address] PCP - General Family Medicine 10/10/20 documented as of this encounter
--- OUTSIDE RECORDS SUMMARY | 2024-05-10 05:41 | External Medical Summary | Summary of Care ---
Author Name Unknown Organization [facility] Address [address] [facility] [place] [address] Phone [phone] Care Team Providers Care Facilities Director Name Role Phone Bandar Bailon DO Primary Care Provider Reason for Visit * Reason Onset Date Comments Advice 04/26/2024 Encounter Details Date Type Department Care Team (Late st Contact Info) Description 04/26/2024 Telephone General Surgery, [facility] [address] [place] [address] Khalif Wall MD [address] [place] [address] Advice Allergies Active Allergy Reactions Criticality Noted [...] as of this encounter (statuses as of 04/26/2024) Medications Medication Sig Dispensed Refills Start Date End Date Status OXYGEN oxygen at 2 lpm via NC during all periods of sleep 1 Each 0 09/26/2014 Active Aspirin 81 MG Oral Tablet Chewable Take 1 Tablet by mouth in the morning. 34 Tab 11 09/26/2020 Active BiPAP every night at bedtime. Active Hydrocortisone Na Succinate PF 100 MG Injection Solution Reconstituted (Solu-Cortef) Use in emergency-adrenal crisis ACT O VIAL 2 mL 6 01/29/2022 Active Additional Information Patient not taking.Reported on 04/20/2024 Calcium Carb-Cholecalcifer ol 600-200 MG-UNIT Oral Tablet Take by mouth 2 Tablets in the morning. 180 Tablet 3 04/04/2022 Active Diathrive Pen Needle 31G X 8 MM (Insulin Pen Needle)Indications :B12 deficiency Use for b-12 injections once monthly as indicated. 30 Each 3 06/06/2022 Active Tobramycin Powder Compounded tobramycin 40mg capsules to be added to sinus rinse twice daily. Dispense 180 of each (=3 months supply). [facility] at [address] [place] [address], [facility] [address], [place] [address]. 1 g 09/12/2022 Active Mupirocin 2 % External Ointment (Bactroban) Apply to affected toenail sites once daily. Cover with dry bandage. 22 g 11/13/2022 Active Additional Information Patient not taking.Reported on 03/15/2024 Atorvastatin Calcium 20 MG Oral Tablet (Lipitor) TAKE 1 TABLET BY MOUTH IN THE MORNING 90 Tablet 1 03/13/2023 Active Restasis 0.05 % Ophthalmic EmulsionIndication s:Pituitary macroadenoma (HCC) Instill 1 Drop into both eyes in the morning and 1 Drop before bedtime. 180 Each 3 03/13/2023 Active levETIRAcetam 500 MG Oral Tablet (Keppra) Take 1 Tablet by mouth in the morning and 1 Tablet before bedtime. 180 Tablet 1 03/14/2023 Active Montelukast Sodium 10 MG Oral Tablet (Singulair)Indicat ions:Mild persistent asthma without complication Take 1 Tablet by mouth at bedtime. 90 Tablet 3 03/13/2023 Active Vitamin D3 20 MCG (800 UNIT) Oral Tablet Take 1capsule by mouth in the morning. 90 Tablet 3 04/08/2023 Active Dicyclomine HCl 10 MG Oral Capsule (Bentyl) Take 1 Capsule by mouth 2 times a day as needed for Cramping. 180 Capsule 3 04/09/2023 Active DULoxetine HCl 60 MG Oral Capsule Delayed Release Particles (Cymbalta) Take 1 Capsule by mouth in the morning. Do not cut, crush or chew. 90 Capsule 5 04/15/2023 Active Mesalamine 1.2 GM Oral Tablet Delayed Release (Lialda) take two tablets by mouth daily 180 Tablet 3 05/06/2023 Active Omeprazole 20 MG Oral Capsule Delayed Release (PriLOSEC) Take 1 Capsule by mouth in the morning. 90 Capsule 3 05/08/2023 Active rOPINIRole HCl 2 MG Oral Tablet (Requip)Indication s:Restless legs syndrome Take 1 Tablet by mouth at bedtime. 90 Tablet 3 06/24/2023 Active Syringe/Needle (Disp) 22G X 1-1/2" 5 MLIndications:B12 deficiency USE FOR INJECTION OF DEXAMETHASONE OR HYDROCORTISONE FOR ADRENAL CRISIS 3 Each 5 10/01/2023 Active cycloSPORINE 0.05 % Ophthalmic Emulsion (Restasis) place 1 drop into both eyes twice daily 180 Each 3 11/11/2023 Active Metoclopramide HCl 10 MG Oral Tablet (Reglan) TAKE ONE TABLET BY MOUTH THREE TIMES DAILY 30 MIN BEFORE MEALS 360 Tablet 3 11/12/2023 Active Nadolol 40 MG Oral Tablet (Corgard)Indicatio ns:NSVT (nonsustained ventricular tachycardia) ([facility]) Take 1 Tablet by mouth in the morning. 90 Tablet 1 12/03/2023 Active Potassium Chloride ER 10 MEQ Oral Capsule Extended ReleaseIndications :Hypokalemia TAKE ONE CAPSULE BY MOUTH IN THE MORNING AND ONE CAPSULE BEFORE BEDTIME 180 Capsule 2 12/29/2023 Active Fluticasone-Umecli din-Vilant 200-62.5-25 MCG/ACT Aerosol Powder Breath Activated (Trelegy Ellipta) inhale one puff by mouth in the morning 60 Each 10 01/17/2024 Active Albuterol Sulfate HFA 108 (90 Base) MCG/ACT Inhalation Aerosol Solution Inhale 2 Puffs by mouth every 6 hours as needed for Wheezing. 54 g 3 01/29/2024 Active Full Kit Nebulizer Set Use with Nebulizer Medication EVERY SIX HOURS WHILE AWAKE as directed. Dx Code: J45.30 1 Each 3 01/29/2024 Active Albuterol Sulfate 0.63 MG/3ML Inhalation Nebulization Solution (Accuneb) Inhale 1 Vial via nebulizer every 6 hours as needed for Wheezing or Shortness of Breath. 360 mL 01/30/2024 Active Cyanocobalamin 1000 MCG/ML Injection Solution (Cyanocobalamin) INJECT 1,000 MCG (1ML) INTRAMUSCULARLY DIRECTED FOR 30 DAYS 3 mL 02/09/2024 Active BD Luer-Eli Syringe 22G X 1" 3 ML (Syringe/Needle (Disp))Indications :B12 deficiency FOR USE WITH B12 INJECTIONS 3 Each 3 02/11/2024 Active predniSONE 20 MG Oral Tablet (Deltasone) Take 1 Tablet by mouth in the morning. 5 Tablet 02/26/2024 Active Additional Information Patient not taking.Reported on 03/15/2024 Famotidine 40 MG Oral Tablet (Pepcid) Take 1 tablet by mouth daily. 90 Tablet 1 03/05/2024 Active Diclofenac Sodium 50 MG Oral Tablet Delayed Release (Voltaren)Indicati ons:Lumbar degenerative disc disease,Lumbar radiculopathy Take 1 Tablet by mouth in the morning and 1 Tablet before bedtime take With food 180 Tablet 1 04/02/2024 Active Hydrocortisone 5 MG Oral Tablet (Cortef) take 2 tablets in the morning , 1 tablet at lunch and 1 tablet at supper, double or triple dose during sickness 400 Tablet 1 04/06/2024 Active Pregabalin 150 MG Oral Capsule (Lyrica)Indication s:Hereditary and idiopathic peripheral neuropathy Take 1 capsule by mouth in the morning and 2 capsules by mouth at bedtime 90 Capsule 2 04/16/2024 Active Hospital, Clinic, or Other Facility Administered Medication Ordered Dose Route Frequency Start Date End Date Status Albuterol Sulfate (Proventil) (2.5 MG/3ML) 0.083% inhalation solution 2.5 mgIndications:Mild persistent asthma without complication,SOB (shortness of breath) 2.5 mg NEBULIZER Q4H PRN 05/30/2021 Act mary jo documented as of this encounter (statuses as of 04/26/2024) Active Problems Problem Noted Date Diagnosed Date [...] 10/20/2019 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 Increased risk for Long QT Syndrome. 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 Asthma, mild persistent 04/29/2012 Overview: Allergic component ROBERT (obstructive sleep apnea) 02/01/2010 Overview: documented as of this encounter (statuses as of 04/26/2024) Resolved Problems Problem Noted Date Diagnosed Date Resolved Date S/P nasal septoplasty 03/07/20222022 History of 2019 novel bergman virus disease (COVID-19) 02/26/2022 12/04/2022 Overview: Most recent 01/2022. hosp w/gastroenteritis. Overweight (BMI 25.0-29.9) 02/22/2022 0 10/29/2022 Vasospasm of peripheral artery 10/22/2021 02/22/2022 Elevated prolactin level 10/30/2019 Bradycardia, sinus 01/23/2018 0 Adrenal insufficiency 11/06/20172017 Anesthesia complication 10/13/201701/22 Overview: Breathing issues Neuropathy 01/15/2016 12/09/2016 Sialolithiasis 03/16/2014 12/09/2016 Pilonidal cyst without mention of abscess 07/23/2013 12/09/2016 Allergic rhinitis 04/29/2012 10/20/2019 Tinnitus 04/13/2012 10/03/2017 Chronic diarrhea 10/29/2010 10/03/2017 Urinary hesitancy 07/23/2010 10/20/2019 Regional enteritis 05/15/2010 7 Regional enteritis of small intestine with large intestine 04/03/2010 12/09/2016 Overview: Presumbed Crohn's disease. Bx with chronic inflammation and ulceration of the sigmoid colon. Hx suggestive of Crohn's. Impacted cerumen 01/25/2010 06/17/2017 Conductive hearing loss 01/25/201007/2021 documented as of this encounter (statuses as of 04/26/2024) Immunizations Name Administration Dates Next Due COVID-19 mRNA, LNP-s, No Pre serve, 2-Dose Series (DeNA) 04/26/2021,10/20/2020,09/27/2020 COVID-19, MRNA-LNP, PF, 50 M CG/0.5 [...] Assigned at Male 11/21/2022 11:18 AM EDT Gender Identity Male 11/21/2022 11:18 AM EDT Sexual Orientation Straight 11/21/2022 11 :18 AM EDT Job Start Date Occupation Industry Not on file Not on file Not on file documented as of this encounter Functional Status Functional Status Response Date of Assess ment Do you have serious difficul ty walking or climbing stairs? (5 years old or older) Yes-as per pt he gets short of breathe 03/08/2022 documented as of this encounter Plan of Treatment Upcoming Encounters Date Type Department Care Team (Latest Contact Info) Description 4 9:00 AM [facility] Hospital Encounter ENDO OSSC, Endoscopy Room [facility] [address] [place] [phone] Delta Rodriguez MD [address] [place] [address] 4 9:00 AM EST - 4 9:30 AM EST Surgery ENDO OSSC, Endoscopy Room [facility] [address] [place] [phone] Delta Rodriguez MD [address] [place] [address] ESOPHAGOGASTRODUODENOSCOPY (EGD), FLEXIBLE, TRANSORAL, DIAGNOSTIC 4 9:30 AM EST Hospital Encounter [facility] [address] [place] [address] 4 10:00 AM EST Appointment EVELYNE [place] [address] [place] [address] 4 3:30 PM EST Office Visit Otolaryngology/ Head & Neck/Facial Plastic Surgery [address] [place] [address] Ede Vieira MD [address] [place] [address] 4 7:15 AM EST Office Visit Non [facility], Operating Room, [address] [address] Khalif Wall MD 132 [place] [address] 4 1:00 PM EST Telemedicine Psychology [place] [address] [place] [address] 2, Psychology Group 9 [place] [address] 4 8:40 AM EST Office Visit Pulmonary Medicine, [facility] [address] [place] [address] Rigoberto [facility]assiter [facility] [address] [facility] [address] 4 1:00 PM EST Telemedicine Psychology [place] 9 [place] [address] 2, Psychology Group 9 [place] [address] 4 9:30 AM EST Office Visit General Surgery, [facility] [address] [place] [address] Khalif Wall MD [address] [place] [address] 4 1:00 PM EST Telemedicine Psychology [place] [facility] [address] [place] [address] 2, Psychology Group [address] [place] [address] 4 1:00 PM EST Telemedicine Psychology [place] [address] [place] [address] 2, Psychology Group [address] [place] [address] 4 1:00 PM EST Telemedicine Psychology [place] [address] [place] [address] 2, Psychology Group [address] [place] [address] 5 1:00 PM EST Telemedicine Psychology [place] [address] [place] [address] 2, Psychology Group [address] [place] [address] 5 1:00 PM EST Telemedicine Psychology [address] [place] [address] [place] [address] 2, Psychology Group [address] [place] [address] 5 1:00 PM EST Telemedicine Psychology [place] [address] [place] [address] 2, Psychology Group [address] [place] [address] 5 3:00 PM EST Office Visit [facility] [address] [facility] [place] [address] Torri Urbano CRNP 132 [facility] [place] [address] 5 3:30 PM EDT Procedure Only Urology, [facility] [address] [facility] [place] [address] Enrique Wall MD 27 [facility] [place] [address] 5 3:30 PM EDT Office Visit Cardiology, [facility] [address] [facility] [place] [address] Kassandra Sam CRNP 400 [facility] [address] 5 3:00 PM EDT Office Visit [facility] [address] [facility] [place] [address] Bandar Bailon, 132 [facility] [place] [address] Scheduled Procedures Name Priority Associated Diagnoses Date/Ti me ESOPHAGOGASTRODUODENOSCOPY ( EGD), FLEXIBLE, TRANSORAL, DIAGNOSTIC Gastroesophageal reflux disease, unspecified whether esophagitis present Esophageal dysphagia 04/28/2024 9:00 AM EST COLONOSCOPY FLEXIBLE PROXIMA L DIAGNOSTIC Recall History of colon polyps Health [...] this encounter Medical Devices Implanted Type Area Hop Farm Worker Device Identifier Shelf Expiration Date Model / Serial / Lot Graft Lyoplnt 2.5x2.5cm 1x1 - [id number] Implanted:Qty: 1 on 03/07/2022 by Valeriano Hathaway MD at [place] [facility] [place] B [place] : AESCULAP [id number] 10/20/2026 [id number] / [id number] / [id number] Graft Lyoplnt 2.5x2.5cm 1x1 - [id number] Implanted:Qty: 1 on 03/07/2022 by Valeriano Hathaway MD at OR [facility] [place] B KIRKPATRICK : AESMANUELALAP [id number] 10/20/2026 [id number] / [id number] / [id number] documented as of this encounter Advance Directives [...] the patient have Health Care Power of Pottery Machine Operator? No * Full Code Date Activated Date [...] Directives occurred with: Not Discussed Care Teams Facilities Director Relationship Specialty Start Date End Date Bandar Bailon DO 132 [place] [address] PCP - General Family Medicine 10/10/20 documented as of this encounter
--- OUTSIDE RECORDS SUMMARY | 2024-05-10 05:41 | External Medical Summary | Summary of Care ---
Author Name Unknown Organization [facility] [address] [place] [address] Phone [phone] Care Team Providers Care Steamblaster Name Role Phone Bandar Bailon DO Primary Care Provider Encounter Details Date Type Department Care Team (Late st Contact Info) Description 01/30/2024 Telephone Radiology, [facility] [address] [place] [address] Requisition, External Radiology [address] [place] [address] Allergies Active Allergy Reactions Criticality Noted Date Comments Sulfamethoxazole-Trimet hoprim Itching 07/16/2021 Pt noted total body itching within one hour of first dose. Took benedryl and inhaler and stopped med. Codeine Other (Please comment) Medium 04/23/2017 Allergic reaction Other reaction(s): UNSURE REACTION - HAPPENED A CHILD Sulfa Antibiotics High 05/22/2022 Other reaction(s): Swelling of Lip/Tongue/Throat documented as of this encounter (statuses as of 04/30/2024) Medications OXYGEN oxygen at 2 lpm via NC during all periods of sleep 1 Each 0 015 Active Aspirin 81 MG Oral Tablet Chewable Take 1 Tablet by mouth in the morning. 34 Tab 11 021 Active BiPAP every night at bedtime. Active Hydrocortisone Na Succinate PF 100 MG Injection Solution Reconstituted (Solu-Cortef) Use in emergency-adrenal crisis ACT O VIAL 2 mL 6 022 Active Additional Information Patient not taking.Reported on 04/20/2024 Calcium Carb-Cholecalci ferol 600-200 MG-UNIT Oral Tablet Take by mouth 2 Tablets in the morning. 180 Tablet 3 022 Active Diathrive Pen Needle 31G X 8 MM (Insulin Pen Needle)Indicati ons:B12 deficiency Use for b-12 injections once monthly as indicated. 30 Each 3 022 Active Tobramycin Powder Compounded tobramycin 40mg capsules to be added to sinus rinse twice daily. Dispense 180 of each (=3 months supply). [facility] at [address] [place] [address], [place] [id number]. 1 g 023 Active Mupirocin 2 % External Ointment (Bactroban) Apply to affected toenail sites once daily. Cover with dry bandage. 22 g 11/14/19 23 3:52 PM EDT 023 Active Additional Information Patient not taking.Reported on 03/15/2024 Atorvastatin Calcium 20 MG Oral Tablet (Lipitor) TAKE 1 TABLET BY MOUTH IN THE MORNING 90 Tablet 1 01/22/20 24 5:31 PM EDT 023 Active Restasis 0.05 % Ophthalmic EmulsionIndicat ions:Pituitary macroadenoma (HCC) Instill 1 Drop into both eyes in the morning and 1 Drop before bedtime. 180 Each 3 03/19/20 23 6:50 AM EDT 023 Active levETIRAcetam 500 MG Oral Tablet (Keppra) Take 1 Tablet by mouth in the morning and 1 Tablet before bedtime. 180 Tablet 1 11/11/19 24 2:29 PM EDT 023 Active Montelukast Sodium 10 MG Oral Tablet (Singulair)Edita cations:Mild persistent asthma without complication Take 1 Tablet by mouth at bedtime. 90 Tablet 3 03/19/20 23 6:50 AM EDT 023 Active Vitamin D3 20 MCG (800 UNIT) Oral Tablet Take 1capsule by mouth in the morning. 90 Tablet 3 023 Active Dicyclomine HCl 10 MG Oral Capsule (Bentyl) Take 1 Capsule by mouth 2 times a day as needed for Cramping. 180 Capsule 3 05/03/20 23 2:27 PM EST 023 Active DULoxetine HCl 60 MG Oral Capsule Delayed Release Particles (Cymbalta) Take 1 Capsule by mouth in the morning. Do not cut, crush or chew. 90 Capsule 5 03/04/20 24 7:31 AM EDT 023 Active Mesalamine 1.2 GM Oral Tablet Delayed Release (Lialda) take two tablets by mouth daily 180 Tablet 3 01/29/20 24 6:33 PM EDT 023 Active Omeprazole 20 MG Oral Capsule Delayed Release (PriLOSEC) Take 1 Capsule by mouth in the morning. 90 Capsule 3 09/17/19 24 7:00 AM EDT 023 Active rOPINIRole HCl 2 MG Oral Tablet (Requip)Indicat ions:Restless legs syndrome Take 1 Tablet by mouth at bedtime. 90 Tablet 3 04/15/20 24 3:06 PM EDT 024 Active Syringe/Needle (Disp) 22G X 1-1/2" 5 MLIndications:B 12 deficiency USE FOR INJECTION OF DEXAMETHASONE OR HYDROCORTISONE FOR ADRENAL CRISIS 3 Each 5 024 Active cycloSPORINE 0.05 % Ophthalmic Emulsion (Restasis) place 1 drop into both eyes twice daily 180 Each 3 03/04/20 24 9:11 AM EDT 024 Active Metoclopramide HCl 10 MG Oral Tablet (Reglan) TAKE ONE TABLET BY MOUTH THREE TIMES DAILY 30 MIN BEFORE MEALS 360 Tablet 3 11/14/19 24 6:53 AM EDT 024 Active Nadolol 40 MG Oral Tablet (Corgard)Indica tions:NSVT (nonsustained ventricular tachycardia) (HCC) Take 1 Tablet by mouth in the morning. 90 Tablet 1 04/03/20 24 11:09 AM EDT 024 Active Potassium Chloride ER 10 MEQ Oral Capsule Extended ReleaseIndicati ons:Hypokalemia TAKE ONE CAPSULE BY MOUTH IN THE MORNING AND ONE CAPSULE BEFORE BEDTIME 180 Capsule 2 024 Active Fluticasone-Ume clidin-Vilant 200-62.5-25 MCG/ACT Aerosol Powder Breath Activated (Trelegy Ellipta) inhale one puff by mouth in the morning 60 Each 10 Active Albuterol Sulfate HFA 108 (90 Base) MCG/ACT Inhalation Aerosol Solution Inhale 2 Puffs by mouth every 6 hours as needed for Wheezing. 54 g 3 01/29/20 24 6:33 PM EDT Active Full Kit Nebulizer Set Use with Nebulizer Medication EVERY SIX HOURS WHILE AWAKE as directed. Dx Code: J45.30 1 Each 3 Active Albuterol Sulfate 0.63 MG/3ML Inhalation Nebulization Solution (Accuneb) Inhale 1 Vial via nebulizer every 6 hours as needed for Wheezing or Shortness of Breath. 360 mL Active Hydrocortisone 5 MG Oral Tablet (Cortef) take 2 tablets in the morning , 1 tablet at lunch and 1 tablet at supper, double or triple dose during sickness 400 Tablet 1 04/04/20 23 6:19 PM EDT 023 2023 Discontinued(R efill) Diclofenac Sodium 50 MG Oral Tablet Delayed Release (Voltaren)Indic ations:Lumbar degenerative disc disease,Lumbar radiculopathy Take 1 Tablet by mouth in the morning and 1 Tablet before bedtime. With food.. 180 Tablet 09/17/19 24 7:00 AM EDT 023 2023 Discontinued(R efill) Famotidine 40 MG Oral Tablet (Pepcid) Take 1 tablet by mouth daily. 90 Tablet 1 12/19/19 24 10:03 AM EDT 023 2023 Discontinued(R efill) BD Luer-Eli Syringe 22G X 1" 3 ML (Syringe/Needle (Disp))Indicati ons:B12 deficiency FOR USE WITH B12 INJECTIONS 3 Each 3 024 2023 Discontinued(R efill) Pregabalin 150 MG Oral Capsule (Lyrica)Indicat ions:Hereditary and idiopathic peripheral neuropathy Take 1 capsule by mouth in the morning and 2 capsules by mouth at bedtime 90 Capsule 2 01/22/20 24 5:31 PM EDT 024 2023 Discontinued(R efill) Cyanocobalamin 1000 MCG/ML Injection Solution (Cyanocobalamin ) INJECT 1,000 MCG (1ML) INTRAMUSCULARLY DIRECTED FOR 30 DAYS 3 mL 024 2023 Discontinued Trelegy Ellipta 200-62.5-25 MCG/ACT Aerosol Powder Breath Activated (Fluticasone-Um eclidinium-Dasha nterol)Indicati ons:Moderate persistent asthma without complication Inhale 1 Puff by mouth every morning. 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 Increased risk for Long QT Syndrome. 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 Asthma, mild persistent 04/29/2012 Overview (04/29/2012): Allergic component ROBERT (obstructive sleep apnea) 02/01/2010 Overview (03/03/2018): documented as of this encounter (statuses as of 04/30/2024) Resolved Problems Problem Noted Date Diagnosed Date [...] as of this encounter (statuses as of 04/30/2024) Immunizations Name Administration Dates Next Due COVID-19 mRNA, LNP-s, No Pre serve, 2-Dose Series ([employer]) 04/26/2021,10/20/2020,09/27/2020 COVID-19, MRNA-LNP, PF, 50 M CG/0.5 [...] IM, 0.5 mL (Fluzone) 02/21/2015,09/14/2014,03/18/2013,05/13,04/23/2010 Seasonal Influenza, PF, 6 M & above, [...] 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 (5 years old or older) Answer Date of Assessment Author Yes 03/08/2022 8:43 AM EDT Yvonne Lucero RN documented as of this encounter Miscellaneous Notes * Telephone Encounter - Mackenzie Urena OSA - 01/30/2024 4:44 PM EDT Pt has Pacemaker and needs to have MRI completed within next 2 weeks due to surgery, Ordered for MRI sella Turcica documented in this encounter Plan of Treatment Upcoming Encounters Date Type Department Care Team (Late st Contact Info) Description 05/05/2024 9:30 AM EST Hospital Encounter [facility] [address] [place] [address] 05/05/2024 10:00 AM EST Appointment [facility] [address] [place] [address] 05/05/2024 3:30 PM EST Office Visit Otolaryngology/Head & Neck/Facial Plastic Surgery [address] [place] [address] Ede Vieira MD [address] [place] [address] 05/10/2024 7:15 AM EST Office Visit Non [facility], Operating Room, [facility] [address] [place] [address] Khalif Wall MD [address] [facility] [place] [address] 05/12/2024 1:00 PM EST Telemedicine Psychology [facility] [address] [place] [phone] 2, [facility] [address] [place] [phone] 05/19/2024 8:40 AM EST Office Visit Pulmonary Medicine, [facility] [address] [place] [address] Rigoberto Lassiter MD [address] [place] [facility] [place] [address] 05/19/2024 1:00 PM EST Telemedicine Psychology [facility] [address] [place] [address] 2, [facility] [address] [place] [address] 05/26/2024 9:30 AM EST Office Visit General Surgery, [facility] [address] [place] [address] Khalif Wall MD [address] [place] [address] 05/26/2024 1:00 PM EST Telemedicine Psychology [facility] [address] [place] [address] 2, [facility] [address] [place] [address] 06/02/2024 1:00 PM EST [facility]medicine [facility] [address] [place] [address] 2, [facility] [address] [place] [address] 06/09/2024 1:00 PM EST [facility] [address] [place] [phone] 2, [facility] [address] [place] [address] 06/30/2024 1:00 PM EST Telemedicine Psychology [facility] [address] [place] [phone] 2, [facility] [address] [place] [phone] 07/07/2024 1:00 PM EST Telemedicine Psychology [place] [facility] [address] [place] [phone] 2, [facility] [address] [place] [phone] 07/14/2024 1:00 PM EST Telemedicine Psychology [place] [facility] [address] [place] [phone] 2, [facility] [address] [place] [address] 07/20/2024 3:00 PM EST Office Visit Family Practice [facility] [address] [facility] [place] [address] Torri Urbano CRNP [address] [facility] [place] [address] 09/01/2024 3:30 PM EDT Procedure Only Urology, [facility] [address] [facility] [place] [address] Enrique Wall MD [address] [place] [id number] 12/14/2024 3:30 PM EDT Office Visit Cardiology, [facility] [address] [facility] [place] [address] Kassandra Sam CRNP [address] [place] [address] 01/18/2025 3:00 PM EDT Office Visit Family Practice [facility] [address] [place] [address] Bandar Bailon, [address] [place] [address] Scheduled Procedures Name Priority Associated Diagnoses Date/Ti [...] Cancer Screening 02/26/2028 Lipid Panel 05/06/2028 05/06/2023, 1109/2021, 10/11/2021, Additional history exists DTap/Tdap Vaccines (3 [...] this encounter Medical Devices Implanted Type Area Adjuster And Inspector Device Identifier Shelf Expiration Date Model / Serial / Lot Graft Lyoplnt 2.5x2.5cm 1x1 - [id number] Implanted:Qty: 1 on 03/07/2022 by Valeriano Hathaway MD at OR [facility] [place] : AESCULAP [id number] 10/20/2026 [id number] / [id number] / [id number] Graft Lyoplnt 2.5x2.5cm 1x1 - [id number] Implanted:Qty: 1 on 03/07/2022 by Valeriano Hathaway MD at OR [facility] [place] : AESCULAP [id number] 10/20/2026 [id number] / [id number] / [id number] documented as of this encounter Advance Directives [...] the patient have Health Care Power of Green House Manager? No * Full Code Date Activated [...] Directives occurred with: Not Discussed Care Teams Steamblaster Relationship Specialty Start Date End Date Bandar Bailon DO [address] [place] [address] PCP - General Family Medicine 10/10/20 documented as of this encounter
--- OUTSIDE RECORDS SUMMARY | 2024-05-10 05:41 | External Medical Summary | Summary of Care ---
Author Name Unknown Organization [facility] Address [address] [place] [address] Phone [phone] Care Team Providers Care Catering Manager Name Role Phone Bandar Bailon DO Primary Care Provider Reason for Visit * Reason Onset Date Comments Advice 01/26/2024 Encounter Details Date Type Department Care Team (Late st Contact Info) Description 01/26/2024 Telephone Access Center, [facility] [address] [facility] *DO NOT REMOVE THIS DEPARTMENT* [place] [address] Services, Scheduling [address] [place] [address] Advice Allergies Active Allergy Reactions Criticality Noted [...] in the morning. 34 Tab 11 09/27/19 Active BiPAP every night at bedtime. Active Hydrocortisone Na Succinate PF 100 MG Injection Solution Reconstituted (Solu-Cortef) Use in emergency-adrenal crisis ACT O VIAL 2 mL 6 01/30/20 Active Additional Information Patient not taking.Reported on [...] each (=3 months supply). [facility] at [address] [place] [address], [place] [id number]. 1 g 09/13/19 Active Mupirocin 2 % External Ointment (Bactroban) Apply to affected toenail sites once daily. Cover with dry bandage. 22 g 11/14/19 23 Active Additional Information Patient not taking.Reported on 03/15/2024 Atorvastatin Calcium 20 MG Oral Tablet (Lipitor) TAKE 1 TABLET BY MOUTH IN THE MORNING 90 Tablet 1 03/13/20 23 Active Restasis 0.05 % Ophthalmic EmulsionIndicatio ns:Pituitary macroadenoma (HCC) Instill 1 Drop into both eyes in the morning and 1 Drop before bedtime. 180 Each 3 03/13/20 23 Active levETIRAcetam 500 MG Oral Tablet (Keppra) Take 1 Tablet by mouth in the morning and 1 Tablet before bedtime. 180 Tablet 1 03/14/20 23 Active Montelukast Sodium 10 MG Oral Tablet (Singulair)Indica tions:Mild persistent asthma without complication Take 1 Tablet by mouth at bedtime. 90 Tablet 3 03/13/20 23 Active Vitamin D3 20 MCG (800 UNIT) Oral Tablet Take 1capsule by mouth in the morning. 90 Tablet 3 04/08/20 23 Active Dicyclomine HCl 10 MG Oral Capsule (Bentyl) Take 1 Capsule by mouth 2 times a day as needed for Cramping. 180 Capsule 3 04/09/20 23 Active DULoxetine HCl 60 MG Oral Capsule Delayed Release Particles (Cymbalta) Take 1 Capsule by mouth in the morning. Do not cut, crush or chew. 90 Capsule 5 04/15/20 23 Active Mesalamine 1.2 GM Oral Tablet Delayed Release (Lialda) take two tablets by mouth daily 180 Tablet 3 05/06/20 23 Active Omeprazole 20 MG Oral Capsule Delayed Release (PriLOSEC) Take 1 Capsule by mouth in the morning. 90 Capsule 3 05/08/20 23 Active rOPINIRole HCl 2 MG Oral Tablet (Requip)Indicatio ns:Restless legs syndrome Take 1 Tablet by mouth at bedtime. 90 Tablet 3 06/24/19 24 Active Syringe/Needle (Disp) 22G X 1-1/2" 5 MLIndications:B12 deficiency USE FOR INJECTION OF DEXAMETHASONE OR HYDROCORTISONE FOR ADRENAL CRISIS 3 Each 5 10/01/19 24 Active cycloSPORINE 0.05 % Ophthalmic Emulsion (Restasis) place 1 drop into both eyes twice daily 180 Each 3 11/11/19 24 Active Metoclopramide HCl 10 MG Oral Tablet (Reglan) TAKE ONE TABLET BY MOUTH THREE TIMES DAILY 30 MIN BEFORE MEALS 360 Tablet 3 11/12/19 24 Active Nadolol 40 MG Oral Tablet (Corgard)Indicati ons:NSVT (nonsustained ventricular tachycardia) (HCC) Take 1 Tablet by mouth in the morning. 90 Tablet 1 12/03/19 24 Active Potassium Chloride ER 10 MEQ Oral Capsule Extended ReleaseIndication s:Hypokalemia TAKE ONE CAPSULE BY MOUTH IN THE MORNING AND ONE CAPSULE BEFORE BEDTIME 180 Capsule 2 12/29/19 24 Active Fluticasone-Umecl idin-Vilant 200-62.5-25 MCG/ACT Aerosol Powder Breath Activated (Trelegy Ellipta) inhale one puff by mouth in the morning 60 Each 10 01/17/20 24 Active Hydrocortisone 5 MG Oral Tablet (Cortef) take 2 tablets in the morning , 1 tablet at lunch and 1 tablet at supper, double or triple dose during sickness 400 Tablet 1 03/14/20 23 024 Discontinued(Re fill) Albuterol Sulfate HFA 108 (90 Base) MCG/ACT Inhalation Aerosol Solution Inhale 2 Puffs by mouth every 6 hours as needed for Wheezing. 54 g 1 04/08/20 23 024 Discontinued(Re fill) Diclofenac Sodium 50 MG Oral Tablet Delayed Release (Voltaren)Indicat ions:Lumbar degenerative disc disease,Lumbar radiculopathy Take 1 Tablet by mouth in the morning and 1 Tablet before bedtime. With food.. 180 Tablet 04/08/20 23 024 Discontinued(Re fill) Famotidine 40 MG Oral Tablet (Pepcid) Take 1 tablet by mouth daily. 90 Tablet 1 04/10/20 024 Discontinued(Re fill) BD Luer-Eli Syringe 22G X 1" 3 ML (Syringe/Needle (Disp))Indication s:B12 deficiency FOR USE WITH B12 INJECTIONS 3 Each 3 07/26/19 24 024 Discontinued(Re fill) Pregabalin 150 MG Oral Capsule (Lyrica)Indicatio ns:Hereditary and idiopathic peripheral neuropathy Take 1 capsule by mouth in the morning and 2 capsules by mouth at bedtime 90 Capsule 2 09/17/19 24 024 Discontinued(Re fill) Cyanocobalamin 1000 MCG/ML Injection Solution (Cyanocobalamin) INJECT 1,000 MCG (1ML) INTRAMUSCULARLY DIRECTED FOR 30 DAYS 3 mL 11/13/19 24 024 Discontinued Trelegy Ellipta 200-62.5-25 MCG/ACT Aerosol Powder Breath Activated (Fluticasone-Umec lidinium-Vilanter ol)Indications:Mo derate persistent asthma without complication Inhale 1 Puff by mouth every morning. 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 Increased risk for Long QT Syndrome. Cardiac [...] mRNA, LNP-s, No Pre serve, 2-Dose Series ([employer] 04/26/2021,10/20/2020,09/27/2020 COVID-19, MRNA-LNP, PF, 50 M CG/0.5 [...] breathe 03/08/2022 documented as of this encounter Miscellaneous Notes * Telephone Encounter - Imelda Perez LPN - 01/27/2024 8:18 AM EDT Attempted to call patient. No answer, left message for patient to return call to the office. * Telephone Encounter - Renetta Barakat OSA - 01/26/2024 3:56 PM EDT Reason for Call: Pt calling regarding their discussion regarding the discussed SCS trial Pt wanting to advise that he is having Hernia Surgery on 03/05/2024; he will need to wait to have this trial completed until after the pt is healed from the Hernia surgery.? Will he need to wait with him having to be laying on his back for the surgery and recover. Please provide return call regarding. documented in this encounter Plan of Treatment Upcoming Encounters Date Type Department Care Team (Latest Contact Info) Description 4 9:00 AM [facility] Hospital Encounter ENDO [facility], Endoscopy Room [facility] [address] [place] [phone] Delta Rodriguez MD [address] [place] [address] 4 9:00 AM EST - 4 9:30 AM EST Surgery ENDO [facility], Endoscopy Room [facility] [address] [place] [phone] Delta Rodriguez MD [address] [place] [address] ESOPHAGOGASTRODUODENOSCOPY (EGD), FLEXIBLE, TRANSORAL, DIAGNOSTIC 4 9:30 AM [facility] Hospital Encounter [facility] [address] [facility] [place] [address] 4 10:00 AM EST Appointment [facility] [address] [facility] [place] [address] 4 3:30 PM EST Office Visit Otolaryngology/ Head & Neck/Facial Plastic Surgery [address] [facility] [place] [address] Ede Vieira MD [address] [facility] [place] [address] 4 7:15 AM EST Office Visit Non [facility], Operating Room, [place] [address] [place] [facility] [address] Khalif Wall MD [address] [place] [address] 4 1:00 PM EST Telemedicine [facility] [address], [place] [address] [place] [address] 2, [facility] [address] [place] [address] 4 8:40 AM EST Office Visit Pulmonary Medicine, [facility] [address] [place] [address] Rigoberto Lassiter MD [address] [facility] [place] [address] 4 1:00 PM EST [facility] [address] [place] [address] 2, [facility] [address] [place] [phone] 4 9:30 AM EST Office Visit General Surgery, [facility] [address] [place] [address] Khalif Wall MD [address] [place] [address] 4 1:00 PM EST [facility] [address] [place] [address] 2, [facility] [address] [place] [address] 4 1:00 PM EST [facility] [address] [place] [address] 2, [facility] [address] [place] [address] 4 1:00 PM EST Telemedicine Psychology [address], [place] [address] [place] [address] 2, [facility] [address] [place] [phone] 5 1:00 PM EST Telemedicine Psychology [place] [facility] [address] [place] [phone] 2, [facility] [address] [place] [phone] 5 1:00 PM EST Telemedicine Psychology [place] [facility] [address] [place] [phone] 2, [facility] [address] [place] [phone] 5 1:00 PM EST Telemedicine Psychology [place] [facility] [address] [place] [phone] 2, [facility] [address] [place] [phone] 5 3:00 PM EST Office Visit Family Practice [facility] [address] [facility] [place] [address] Torri Urbano CRNP [address] [facility] [place] [address] 5 3:30 PM EDT Procedure Only Urology, [facility] [address] [facility] [place] [address] Enrique Wall MD [address] [place] [address] 5 3:30 PM EDT Office Visit Cardiology, [facility] [address] [facility] [place] [address] Kassandra Sam CRNP [address] [facility] [place] [address] 3:00 PM EDT Office Visit Family [facility] [address] [place] [address] Bandar Bailon, [address] [place] [address] Scheduled Procedures Name Priority Associated Diagnoses Date/Ti [...] 05/06/2023, Additional history exists Colonoscopy 02/26/2028 02/25/2023, 0910/2022, 11/24/2018, Additional history exists Colorectal Cancer Screening [...] this encounter Medical Devices Implanted Type Area Radiator Tester Device Identifier Shelf Expiration Date Model / Serial / Lot Graft Lyoplnt 2.5x2.5cm 1x1 - [id number] Implanted:Qty: 1 on 03/07/2022 by Valeriano Hathaway MD at OR [facility] [place] : AESCULAP [id number] 10/20/2026 [id number] / [id number] / [id number] Graft Lyoplnt 2.5x2.5cm 1x1 - [id number] Implanted:Qty: 1 on 03/07/2022 by Valeriano Hathaway MD at OR [facility] [place] : AESCULAP [id number] 10/20/2026 [id number] / [id number] / [id number] documented as of this encounter Advance Directives [...] the patient have Health Care Power of Logging Worker? No * Full Code Date Activated [...] Directives occurred with: Not Discussed Care Teams Catering Manager Relationship Specialty Start Date End Date Bandar Bailon DO [address] [place] [address] PCP - General Family Medicine 10/10/20 documented as of this encounter
--- OUTSIDE RECORDS SUMMARY | 2024-05-10 05:41 | External Medical Summary | Summary of Care ---
Author Name Unknown Organization [facility] Address [address] [facility] [place] [address] Phone [phone] Care Team Providers Care Defensive Driving Instructor Name Role Phone Bandar Bailon DO Primary Care Provider Reason for Visit * Reason Comments Outpatient Testing Encounter Details Date Type Department Care Team (Late st Contact Info) Description 04/21/2024 2:00 PM EDT Laboratory Laboratory, [facility] [address] [facility] [place] [address] [facility] [address] Pre-op examination Allergies Active Allergy Reactions Criticality Noted Date Comments Sulfamethoxazole-Trimet hoprim Itching 07/16/2021 Pt noted total body itching within one hour of first dose. Took benedryl and inhaler and stopped med. Codeine Other (Please comment) Medium 04/23/2017 Allergic reaction Other reaction(s): UNSURE REACTION - HAPPENED A CHILD Sulfa Antibiotics High 05/22/2022 Other reaction(s): Swelling of Lip/Tongue/Throat documented as of this encounter (statuses as of 04/21/2024) Medications Medication Sig Dispensed Refills Start Date [...] each (=3 months supply). [facility] at [address] [place] [address], [address], [place] [id number]. 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 Increased risk for Long QT Syndrome. 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 Asthma, mild persistent 04/29/2012 Overview: Allergic component ROBERT (obstructive sleep apnea) 02/01/2010 Overview: documented as of this encounter (statuses as of 04/21/2024) Resolved Problems Problem Noted Date Diagnosed Date [...] as of this encounter (statuses as of 04/21/2024) Immunizations Name Administration Dates Next Due COVID-19 mRNA, LNP-s, No Pre serve, 2-Dose Series (Actix) 04/26/2021,10/20/2020,09/27/2020 COVID-19, MRNA-LNP, 23-24, P F, 50 MCG/0.5 mL, 12 YRS AND ABOVE, IM (MODERNA-Spikevax) [...] Department Care Team (Latest Contact Info) Description 04/28/2024 9:00 AM EST Hospital Encounter ENDO OSSC, Endoscopy Room [facility] [address] [place] [address] Delta Rodriguez MD [address] [place] [address] 04/28/2024 9:00 AM EST - 04/28/2024 9:30 AM EST Surgery ENDO OSSC, Endoscopy Room [facility] [address] [place] [phone] Delta Rodriguez MD [address] [place] [address] ESOPHAGOGASTRODUODENOSCOPY (EGD), FLEXIBLE, TRANSORAL, DIAGNOSTIC 05/05/2024 9:30 AM EST Hospital Encounter EVELYNE Irmo [address] [place] [facility] [place] [address] 05/05/2024 10:00 AM EST Appointment EVELYNE Irmo [address] [place] [address] 05/05/2024 3:30 PM EST Office Visit Otolaryngology/ Head & Neck/Facial Plastic Surgery [address] [place] [address] Ede Vieira MD [address] [place] [address] 05/19/2024 8:40 AM EST Office Visit Pulmonary Medicine, [facility] [address] [facility] [place] [address] Rigoberto Lassiter MD [facility] [place] [facility] [place] [address] 05/26/2024 9:30 AM EST Office Visit General Surgery, [facility] [address] [facility] [place] [address] Khalif Wall MD 132 [facility] [place] [address] 07/20/2024 3:00 PM EST Office Visit Family Practice [facility] [address] [facility] [place] [address] Torri Urbano CRNP [address] [place] [address] 09/01/2024 3:30 PM EDT Procedure Only Urology, [facility] 132 [facility] [place] [address] Enrique Wall MD 27 [place] [address] 12/14/2024 3:30 PM EDT Office Visit Cardiology, [facility] [address] [place] [address] Kassandra Sam CRNP [address] [facility] [place] [address] 01/18/2025 3:00 PM EDT Office Visit Family Practice [facility] 132 [facility] [place] [address] Bandar Bailon DO [address] [place] [address] Pending Results Name Type Priority Associated Diagnoses Date /Time CBC Lab Routine Pre-op examination 04/21/2024 2:02 PM EDT COMPREHENSIVE METABOLIC PANEL Lab Routine Pre-op examination 04/21/2024 2:02 PM EDT Scheduled Procedures Name Priority Associated Diagnoses Date/Ti [...] exists Depression Screening 06/24/2024 06/24/2023 Diabetes Screening 11/30/2026 12/01/2023, 1 07/06/2022, 05/06/2023, Additional history exists Colonoscopy 02/26/2028 02/25/2023, [...] this encounter Medical Devices Implanted Type Area Supervisor Scrap Preparation Device Identifier Shelf Expiration Date Model / Serial / Lot Graft Lyoplnt 2.5x2.5cm 1x1 - [id number] Implanted:Qty: 1 on 03/07/2022 by Valeriano Hathaway MD at [place] [facility] B [place] : AESRAJAN [id number] 10/20/2026 [id number] / [id number] / [id number] Graft Lyoplnt 2.5x2.5cm 1x1 - [id number] Implanted:Qty: 1 on 03/07/2022 by Valeriano Hathaway MD at [place] [facility] B K[place] : AESCULAP [id number] 10/20/2026 [id number] / [id number] / [id number] documented as of this encounter Visit Diagnoses Diagnosis Pre-op examination Preoperative examination, unspecified Gastroesophageal reflux disease, unspecified whether esophagitis present Esophageal dysphagia Dysphagia, pharyngoesophageal phase documented in this encounter Advance Directives * [...] the patient have Health Care Power of Pizza Driver? No * Full Code Date Activated Date [...] Directives occurred with: Not Discussed Care Teams Defensive Driving Instructor Relationship Specialty Start Date End Date Bandar Bailon DO 132 [place] [address] PCP - General Family Medicine 10/10/20 documented as of this encounter
--- OUTSIDE RECORDS SUMMARY | 2024-05-10 05:41 | External Medical Summary | Summary of Care ---
Author Name Unknown Organization [facility] Address [address] [facility] [place] [address] Phone [phone] Care Team Providers Care Casting Associate Name Role Phone Bandar Bailon DO Primary Care Provider Reason for Visit * Reason Onset Date Comments Appointment 03/27/2024 Encounter Details Date Type Department Care Team (Late st Contact Info) Description 03/27/2024 Telephone Family Practice [facility] [address] [place] [address] Bandar Bailon DO [address] [place] [address] Appointment Allergies Active Allergy Reactions Criticality Noted [...] as of this encounter (statuses as of 04/24/2024) Medications Medication Sig Dispensed Refills Start Date [...] each (=3 months supply). [facility] at [address] [place] [address], [facility] [address], [place] [address]. 1 g 09/12/2022 Active Mupirocin 2 % [...] Oral Tablet (Corgard)Indicatio ns:NSVT (nonsustained ventricular tachycardia) ([facility]) Take 1 Tablet by mouth in [...] mouth daily. 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 Increased risk for Long QT Syndrome. 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 hosp w/gastroenteritis. Overweight (BMI 25.0-29.9) 02/22/2022 0 10/29/2022 Vasospasm of peripheral artery 10/22/2021 02/22/2022 Elevated prolactin level 10/30/2019 Bradycardia, sinus 01/23/2018 0 Adrenal insufficiency 11/06/20172017 Anesthesia complication 10/13/2017 08/2 08/2021 Overview: Breathing issues Neuropathy 01/15/2016 12/09/2016 Sialolithiasis [...] cerumen 01/25/2010 06/17/2017 Conductive hearing loss 01/25/2010 09/07/2021 documented as of this encounter (statuses as of 04/24/2024) Immunizations Name Administration Dates Next Due COVID-19 mRNA, LNP-s, No Pre serve, 2-Dose Series (Embrace+) 04/26/2021,10/20/2020,09/27/2020 COVID-19, MRNA-LNP, PF, 50 M CG/0.5 [...] encounter Miscellaneous Notes * Telephone Encounter - Mookie Romeo OSA - 03/27/2024 10:52 AM EDT Patient called in needing to reschedule MRI's on 04/28/24 - has a conflict in schedule. Transferred to Radiology. documented in this encounter Plan of Treatment Upcoming Encounters Date Type Department Care Team (Latest Contact Info) Description 4 9:00 AM [facility] Encounter ENDO OSSC, Endoscopy Room [facility] [address] [place] [phone] Delta Rodriguez MD [address] [place] [address] 4 9:00 AM EST - 4 9:30 AM EST Surgery ENDO OSS, Endoscopy Room [facility] [address] [place] [phone] Delta Rodriguez MD [address] [place] [address] ESOPHAGOGASTRODUODENOSCOPY (EGD), FLEXIBLE, TRANSORAL, DIAGNOSTIC 4 9:30 AM EST Hospital Encounter [place] [facility] [address] [place] [facility] [place] [address] 4 10:00 AM EST Appointment [place] [facility] [address] [place] [address] 4 3:30 PM EST Office Visit Otolaryngology/ Head & Neck/Facial Plastic Surgery [address] [place] [address] Ede Vieira MD [address] [place] [address] 4 7:15 AM EST Office Visit Non [facility], Operating Room, [place] [address] [address] [facility] [place] [address] Khalif Wall MD 132 [place] [address] 4 1:00 PM EST Telemedicine Psychology [place] [address] [place] [address] 2, [facility] [address] [place] [address] 4 8:40 AM EST Office Visit Pulmonary Medicine, [facility] 132 [place] [address] Rigoberto Lassiter MD [address] [place] [facility] [place] [address] 4 1:00 PM EST Telemedicine Psychology [facility] [place] [address] [place] [address] 2, [facility] 9 [place] [phone] 4 9:30 AM EST Office Visit General Surgery, [facility] 132 [place] [address] Khalif Wall MD [address] [place] [address] 4 1:00 PM EST Telemedicine Psychology [place] [facility] [address] [place] [address] 2, [facility] [address] [place] [address] 4 1:00 PM EST Telemedicine Psychology [place] [facility] [address] [place] [address] 2, [facility] [address] [place] [address] 4 1:00 PM EST Telemedicine Psychology [place] [facility] [address] [place] [address] 2, [facility] [address] [place] [address] 5 1:00 PM EST Telemedicine Psychology [place] [facility] [address] [place] [address] 2, [facility] [address] [place] [address] 5 1:00 PM EST Telemedicine Psychology [place] [facility] [address] [place] [address] 2, [facility] [address] [place] [address] 5 1:00 PM EST Telemedicine Psychology [place] [facility] [address] [place] [address] 2, [facility] [address] [place] [address] 5 3:00 PM EST Office Visit Family Practice [facility] [place] [address] [facility] [place] [address] Torri Urbano CRNP 132 [facility] [place] [address] 5 3:30 PM EDT Procedure Only Urology, [facility] [address] [facility] [place] [address] Enrique Wall MD 27 [facility] [place] [address] 5 3:30 PM EDT Office Visit Cardiology, [facility] [address] [facility] [place] [address] Kassandra Sam CRNP 400 [facility] [place] [address] 5 3:00 PM EDT Office Visit [facility] [address] [facility] [place] [address] Bandar Bailon DO 132 [facility] [place] [address] Scheduled Procedures Name Priority Associated Diagnoses Date/Ti [...] this encounter Medical Devices Implanted Type Area Pest Control Specialist Device Identifier Shelf Expiration Date Model / Serial / Lot Graft Lyoplnt 2.5x2.5cm 1x1 - [id number] Implanted:Qty: 1 on 03/07/2022 by Valeriano Hathaway MD at [facility] B K[place]RICK : AESCULAP [id number] 10/20/2026 [id number] / [id number] / [id number] Graft Lyoplnt 2.5x2.5cm 1x1 - [id number] Implanted:Qty: 1 on 03/07/2022 by Valeriano Hathaway MD at OR [facility] B [place] : AESCULAP [id number] 10/20/2026 [id number] / [id number] / [id number] documented as of this encounter Advance Directives [...] the patient have Health Care Power of Minilab Operator? No * Full Code Date Activated [...] Directives occurred with: Not Discussed Care Teams Casting Associate Relationship Specialty Start Date End Date Bandar Bailon DO [address] [place] [address] PCP - General Family Medicine 10/10/20 documented as of this encounter
--- OUTSIDE RECORDS SUMMARY | 2024-05-10 05:41 | External Medical Summary | Summary of Care ---
Author Name Unknown Organization [facility] Address [address] [facility] [place] [address] Phone [phone] Care Team Providers Care Plant Controller Name Role Phone Bandar Bailonpriyanka Primary Care Provider Reason for Visit * Reason Onset Date Comments Surgery Procedure Cancelled 02/27/2024 Left Inguinal hernia repair Encounter Details Date Type Department Care Team (Late st Contact Info) Description 02/27/2024 Telephone Pre Surgery Center[facility] [address] [facility] [place] [address] Veronica Abraham MD Surgery Procedure Cancelled (Left Inguinal... Allergies Active Allergy Reactions Criticality Noted Date [...] Information Patient not taking.Reported on 04/20/2024 Calcium Carb-Cholecalcif richa 600-200 MG-UNIT Oral Tablet [...] each (=3 months supply). [facility] at [address] [place] [address], [place] [address], [place] [address]. 1 g 09/13/19 23 Active Mupirocin 2 [...] g 3 4 6:33 PM EDT 01/29/20 Active Full Kit Nebulizer Set Use with [...] Additional Information Patient not taking.Reported on 03/15/2024 Hydrocortisone 5 MG Oral Tablet (Cortef) take 2 tablets in the morning , 1 tablet at lunch and 1 tablet at supper, double or triple dose during sickness 400 Tablet 1 3 6:19 PM EDT 03/14/20 23 024 Disconti nued(Ref ill) Diclofenac Sodium 50 MG Oral Tablet Delayed Release (Voltaren)Indica tions:Lumbar degenerative disc disease,Lumbar radiculopathy Take 1 Tablet by mouth in the morning and 1 Tablet before bedtime. With food.. 180 Tablet 4 7:00 AM EDT 04/08/20 23 024 Disconti nued(Ref ill) Famotidine 40 MG Oral Tablet (Pepcid) Take 1 tablet by mouth daily. 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 Increased risk for Long QT Syndrome. Cardiac [...] mRNA, LNP-s, No Pre serve, 2-Dose Series (Vitrue) 04/26/2021,10/20/2020,09/27/2020 COVID-19, MRNA-LNP, PF, 50 M CG/0.5 [...] Telephone Encounter - Annamaria Vivas LPN - 03/01/2024 9:30 AM EDT Please cancel post op due to surgery being cancelled. * Telephone Encounter - Remedios Butler RN - 02/27/2024 12:29 PM EDT Patient is scheduled for Left Inguinal repair on 03/05/[address] Abraham. Patient was seen by PCP yesterday with chest heaviness , MCKNIGHT, started on Prednisone, went to [facility] ER, (diagnosed with bronchospasms) Per Anesthesia : Due to his comorbidities and the type of procedure, I'd recommend postponing surgery until after his PCP appointment later this month to make sure his symptoms are stable. Patient has appointment with PCP on 03/17/2024. Patient is aware his surgery is canceled for 03/05/2024 and someone will reschedule for after 03/17/2024. Thank you, Rmeedios documented in this encounter Plan of Treatment Upcoming Encounters Date Type Department Care Team (Late st Contact Info) Description 05/05/2024 9:30 AM EST Hospital Encounter [address] [address] 05/05/2024 10:00 AM EST Appointment [address] [address] 05/05/2024 3:30 PM EST Office Visit Otolaryngology/Head & Neck/Facial Plastic Surgery [address] [facility] [place] [address] Ede Vieira MD [address] [place] [address] 05/10/2024 7:15 AM EST Office Visit [facility], Operating Room, [facility] [address] [place] [address] Khalif Wall MD 132 [facility] [place] [address] 05/12/2024 1:00 PM EST Telemedicine Psychology [place] [facility] [address] [place] [address] 2, [facility] 9 [place] [address] 05/19/2024 8:40 AM EST Office Visit Pulmonary Medicine, [facility] 132 [facility] [place] [address] Rigoberto Lassiter MD [address] [place] [address] 05/19/2024 1:00 PM EST Telemedicine Psychology [place] [facility] 9 [place] [address] 2, [facility] 9 [place] [address] 05/26/2024 9:30 AM EST Office Visit General Surgery, [facility] 132 [facility] [place] [address] Khalif Wall MD 132 [facility] [place] [address] 05/26/2024 1:00 PM EST Telemedicine Psychology [place] [facility] [address] [place] [address] 2, [facility] [address] [place] [address] 06/02/2024 1:00 PM EST Telemedicine Psychology [facility] [facility] [address] [place] [address] 2, [facility] [address] [place] [address] 06/09/2024 1:00 PM EST Telemedicine Psychology [place] [facility] [address] [place] [address] 2, [facility] [address] [place] [address] 06/30/2024 1:00 PM EST Telemedicine Psychology [place] [facility] [address] [place] [address] 2, [facility] [address] [place] [address] 07/07/2024 1:00 PM EST Telemedicine Psychology [place] [facility] [address] [place] [address] 2, [facility] [address] [place] [address] 07/14/2024 1:00 PM EST Telemedicine Psychology [place] [facility] [address] [place] [address] 2, [facility] [address] [place] [address] 07/20/2024 3:00 PM EST Office Visit [facility] [address] [place] [address] Torri Urbano CRNP [address] [place] [address] 09/01/2024 3:30 PM EDT Procedure Only Urology, [facility] [address] [place] [address] Enrique Wall MD 27 [facility] [place] [address] 12/14/2024 3:30 PM EDT Office Visit Cardiology, [facility] [address] [facility] [place] [address] Kassandra Sam CRNP 400 [facility] [place] [address] 01/18/2025 3:00 PM EDT Office Visit [facility] [address] [place] [address] Bandar Bailon, [address] [place] [address] Scheduled Procedures Name Priority Associated Diagnoses Date/Ti [...] this encounter Medical Devices Implanted Type Area Battery Hand Device Identifier Shelf Expiration Date Model / Serial / Lot Graft Lyoplnt 2.5x2.5cm 1x1 - [id number] Implanted:Qty: 1 on 03/07/2022 by Valeriano Hathaway [place] [facility] [place] : AESRAJAN [id number] 10/20/2026 [id number] / [id number] / [id number] Graft Lyoplnt 2.5x2.5cm 1x1 - [id number] Implanted:Qty: 1 on 03/07/2022 by Valeriano Hathaway MD [place] [facility] [place] : AESCULAP [id number] 10/20/2026 [id number] / [id number] / [id number] documented as of this encounter Advance Directives [...] the patient have Health Care Power of Director Of Rehabilitation? No * Full Code Date Activated Date [...] Directives occurred with: Not Discussed Care Teams Plant Controller Relationship Specialty Start Date End Date Bandar Bailon DO [address] [place] [address] PCP - General Family Medicine 10/10/20 documented as of this encounter
--- OUTSIDE RECORDS SUMMARY | 2024-05-10 05:41 | External Medical Summary | Summary of Care ---
Author Name Unknown Organization [facility] Address [address] [facility] [place] [address] Phone [phone] Care Team Providers Care Associate Doctor Name Role Phone Bandar Bailon DO Primary Care Provider Reason for Visit * Auth/Cert Specialty Diagnoses / Procedures Referred By Luz castillo Referred To Contact Diagnoses Gastroesophageal reflux disease, unspecified whether esophagitis present Esophageal dysphagia Gastroesophageal reflux disease, unspecified whether esophagitis present [K21.9] Esophageal dysphagia [R13.19] Procedures EGD, FLEXIBLE, DIAGNOSTIC ESOPHAGOGASTRODUODENOSCOPY (EGD), FLEXIBLE, TRANSORAL, DIAGNOSTIC Delta Rodriguez MD [address] [place] [address] [facility] [address] [place] [address] Referral ID Status Reason Start Date Expiration Date Visits Re quested Visits Authorized [id number] Encounter Details Date Type Department Care Team (Latest Contact Info) Description 04/28/2024 7:39 AM EST - 04/28/2024 9:26 AM EST Hospital Encounter [facility], Endoscopy Room [facility] [address] [place] [phone] Delta Rodriguez MD [address] [place] [address] Upper GI Endoscopy Discharge Disposition: Home - Self Care Allergies [...] as of this encounter (statuses as of 04/28/2024) Medications Medication Sig Dispensed Refills Start Date [...] each (=3 months supply). [facility] at [address] [place] [address], [address], [place] [address]. 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 Increased risk for Long QT Syndrome. 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 Asthma, mild persistent 04/29/2012 Overview: Allergic component ROBERT (obstructive sleep apnea) 02/01/2010 Overview: documented as of this encounter (statuses as of 04/28/2024) Resolved Problems Problem Noted Date Diagnosed Date Resolved Date S/P nasal septoplasty 03/07/2022 06/14/ 2023 History of 2019 novel bergman virus disease [...] as of this encounter (statuses as of 04/28/2024) Immunizations Name Administration Dates Next Due COVID-19 mRNA, LNP-s, No Pre serve, 2-Dose Series ([employer]) 04/26/2021,10/20/2020,09/27/2020 COVID-19, MRNA-LNP, PF, 50 M CG/0.5 [...] No 04/13/2024 Does the household have a [facility] source of income? (Household - for ages [...] Sign Reading Time Taken Comments Blood Pressure 98/65 04/28/2024 9:06 AM EST Pulse 60 04/28/2024 9:06 AM EST Temperature 36.2 C (97.2 F) 04/28/2024 8:51 AM ES T Respiratory Rate 14 04/28/2024 9:06 AM EST Oxygen Saturation 98% 04/28/2024 9:06 AM EST Inhaled Oxygen Concentration - - Weight 83.9 kg (185 lb) 04/28/2024 7:56 AM EST Height 167.6 cm (5' 5.98") 04/20/2024 2:28 PM ED T Body Mass Index 29.88 04/20/2024 2:28 PM EDT documented in this encounter Functional Status Functional Status Response Date of Assess ment Do you have serious difficul ty walking or climbing stairs? (5 years old or older) Yes-as per pt he gets short of breathe 03/08/2022 documented as of this encounter H&P Notes * Delta Rodriguez MD - 04/28/2024 8:03 AM EST Endoscopy Pre-Procedure Assessment Name: Félix De La O Date: 04/28/2024 Time: 8:03 AM Procedure: Upper GI Endoscopy; with Indication(s) of evaluation of reflux (including Muro pH probe placement) Endoscopy Pre-Procedure Assessment: Prior to the procedure, the patient was identified. The patient's history, medications and allergies were reviewed as per the Anesthesia Assessment. The patient is competent. The risks and benefits of the proposed procedure and the planned sedation were discussed with the patient. All questions were answered and informed consent for the procedure was obtained. This patient has undergone a preprocedural evaluation. A determination has been made to proceed with the planned procedure under [facility] procedural guidelines and the [facility] Non-Emergent, Elective Medical Services and Treatment Recommendations (published on 09-28-19). The community and hospital prevalence of COVID-19 has been discussed as well as this patient's specific risks associated with SARS-CoV-19 infection. Based upon the clinical acuity and patient-specific care considerations, this procedure is deemed a Tier II - Intermediate acuity treatment or service with either progression or the threat of progressive disease related to the delay in treatment. Not providing the service has the potential for increasing morbidity or mortality. BP 109/69 | Pulse 64 | Temp 36.4 C (97.6 F) (Tympanic) | Resp 14 | Ht 1.676 m (5' 5.98") | Wt 83.9 kg (185 lb) | SpO2 98% | BMI 29.88 kg/m | BSA 1.98 m Prior to Admission medications Medication Sig Last Dose Discont. Pregabalin 150 MG Oral Capsule (Lyrica) Take 1 capsule by mouth in the morning and 2 capsules by mouth at bedtime 04/28/2024 Hydrocortisone 5 MG Oral Tablet (Cortef) take 2 tablets in the morning , 1 tablet at lunch and 1 tablet at supper, double or triple dose during sickness 04/28/2024 Diclofenac Sodium 50 MG Oral Tablet Delayed Release (Voltaren) Take 1 Tablet by mouth in the morning and 1 Tablet before bedtime take With food 04/20/2024 Famotidine 40 MG Oral Tablet (Pepcid) Take 1 tablet by mouth daily. 04/28/2024 Cyanocobalamin 1000 MCG/ML Injection Solution (Cyanocobalamin) INJECT 1,000 MCG (1ML) INTRAMUSCULARLY DIRECTED FOR 30 DAYS Past Week Albuterol Sulfate 0.63 MG/3ML Inhalation Nebulization Solution (Accuneb) Inhale 1 Vial via nebulizer every 6 hours as needed for Wheezing or Shortness of Breath. Past Week Albuterol Sulfate HFA 108 (90 Base) MCG/ACT Inhalation Aerosol Solution Inhale 2 Puffs by mouth every 6 hours as needed for Wheezing. 04/28/2024 Tfyjbcibgry-Jkoksowvc-Didjca 200-62.5-25 MCG/ACT Aerosol Powder Breath Activated (Trelegy Ellipta) inhale one puff by mouth in the morning Past Week Potassium Chloride ER 10 MEQ Oral Capsule Extended Release TAKE ONE CAPSULE BY MOUTH IN THE MORNINGAND ONE CAPSULE BEFORE BEDTIME 04/27/2024 Nadolol 40 MG Oral Tablet (Corgard) Take 1 Tablet by mouth in the morning. 04/28/2024 cycloSPORINE 0.05 % Ophthalmic Emulsion (Restasis) place 1 drop into both eyes twice daily 04/20/2024 Metoclopramide HCl 10 MG Oral Tablet (Reglan) TAKE ONE TABLET BY MOUTH THREE TIMES DAILY 30 MIN BEFORE MEALS 04/27/2024 rOPINIRole HCl 2 MG Oral Tablet (Requip) Take 1 Tablet by mouth at bedtime. 04/27/2024 Omeprazole 20 MG Oral Capsule Delayed Release (PriLOSEC) Take 1 Capsule by mouth in the morning. 04/28/2024 Mesalamine 1.2 GM Oral Tablet Delayed Release (Lialda) take two tablets by mouth daily 04/27/2024 DULoxetine HCl 60 MG Oral Capsule Delayed Release Particles (Cymbalta) Take 1 Capsule by mouth in the morning. Do not cut, crush or chew. 04/28/2024 Dicyclomine HCl 10 MG Oral Capsule (Bentyl) Take 1 Capsule by mouth 2 times a day as needed for Cramping. Past Month Vitamin D3 20 MCG (800 UNIT) Oral Tablet Take 1capsule by mouth in the morning. 04/27/2024 levETIRAcetam 500 MG Oral Tablet (Keppra) Take 1 Tablet by mouth in the morning and 1 Tablet beforebedtime. 04/28/2024 Atorvastatin Calcium 20 MG Oral Tablet (Lipitor) TAKE 1 TABLET BY MOUTH IN THE MORNING 04/28/2024 Montelukast Sodium 10 MG Oral Tablet (Singulair) Take 1 Tablet by mouth at bedtime. 04/27/2024 Restasis 0.05 % Ophthalmic Emulsion Instill 1 Drop into both eyes in the morning and 1 Drop before bedtime. 04/20/2024 Tobramycin Powder Compounded tobramycin 40mg capsules to be added to sinus rinse twice daily. Dispense 180 of each (=3 months supply). [facility] at [address] [place] [address], [place] [address]. Past Week Calcium Carb-Cholecalciferol 600-200 MG-UNIT Oral Tablet Take by mouth 2 Tablets in the morning. 04/27/2024 BiPAP every night at bedtime. 04/27/2024 Aspirin 81 MG Oral Tablet Chewable Take 1 Tablet by mouth in the morning. 04/27/2024 OXYGEN oxygen at 2 lpm via NC during all periods of sleep 04/19/2024 predniSONE 20 MG Oral Tablet (Deltasone) Take 1 Tablet by mouth in the morning. Patient not taking: Reported on 03/15/2024 Not Taking BD Luer-Eli Syringe 22G X 1" 3 ML (Syringe/Needle (Disp)) FOR USE WITH B12 INJECTIONS Full Kit Nebulizer Set Use with Nebulizer Medication EVERY SIX HOURS WHILE AWAKE as directed. Dx Code: J45.30 Syringe/Needle (Disp) 22G X 1-1/2" 5 ML USE FOR INJECTION OF DEXAMETHASONE OR HYDROCORTISONE FOR ADRENAL CRISIS Mupirocin 2 % External Ointment (Bactroban) Apply to affected toenail sites once daily. Cover with dry bandage. Patient not taking: Reported on 03/15/2024 Not Taking Diathrive Pen Needle 31G X 8 MM (Insulin Pen Needle) Use for b-12 injections once monthly as indicated. Hydrocortisone Na Succinate PF 100 MG Injection Solution Reconstituted (Solu- Cortef) Use in emergency-adrenal crisis ACT O VIAL Patient not taking: Reported on 04/20/2024 Not Taking Review of patient's allergies indicates: Allergen Reactions Sulfa Antibiotics Other reaction(s): Swelling of Lip/Tongue/Throat Codeine Other (Please comment) Allergic reaction Other reaction(s): UNSURE REACTION - HAPPENED A CHILD Bactrim [Sulfamethoxazole-Trimethoprim] Itching Pt noted total body itching within one hour of first dose. Took benedryl and inhaler and stopped med. Physical Exam: Mental Status Examination: alert and oriented. General: nad, calm Airway Examination: normal oropharyngeal airway and neck mobility. CV: no JVD Respiratory Examination: symmetrical excursion Abd:soft/ntd ASA Grade: III - A patient with severe systemic disease. After reviewing the risks and benefits, the patient was deemed in satisfactory condition to undergothe procedure. The anesthesia plan was to use general anesthesia. Delta Rodriguez MD 04/28/2024 documented in this encounter Procedure Notes * Bandar Bailon DO - 04/28/2024 8:03 AM ESTAssociated Order(s): UPPER GI ENDOSCOPY [facility] Patient Name: Félix De La O Procedure Date: 04/28/2024 8:03 AM Date of : 1955 Admit Type: Outpatient Note Status: Finalized Date of : 1955 Admit Type: Outpatient Age: 69 Room: [facility] 2 Gender: Male Note Status: Finalized Procedure: Upper GI endoscopy Indications: Dysphagia, Heartburn Providers: Delta Rodriguez MD (Doctor) Referring MD: Bandar Bailon (Referring MD) Medicines: Propofol per Anesthesia Complications: No immediate complications. Estimated blood loss: None. Procedure: Pre-Anesthesia Assessment: - - Prior to the procedure, a History and Physical was performed, patient medications, allergies and sensitivities were reviewed. The patient's tolerance of previous anesthesia was reviewed. See Epic for further details. - The risks, benefits, and alternatives of the procedure including the sedation options and risks were discussed with the patient. All questions were answered and informed consent was obtained. - Patient identification and proposed procedure were verified prior to the procedure by the physician and the nurse. The procedure was verified in the procedure room. - See [facility] for documentation of the pre-procedure assessment including ASA status. - After I obtained informed consent, the scope was carefully and meticulously passed under direct vision only when the lumen was definitively identified. CO2 insufflation was utilized throughout the entire procedure exclusively. After obtaining informed consent, the endoscope was passed under direct vision. All instruments were visually inspected immediately before and after removal from the patient to ensure they are fully intact. Throughout the procedure, the patient's blood pressure, pulse, and oxygen saturations were monitored continuously.The upper GI endoscopy was accomplished without difficulty. The patient tolerated the procedure well. The [id number]-HQ190 Endoscope ([id number]) was introduced through the mouth, and advanced to the second part of duodenum. Findings & Specimens: No endoscopic abnormality was evident in the esophagus to explain the patient's complaint of dysphagia. It was decided, however, to proceed with dilation of the entire esophagus. A guidewire was placed and the scope was withdrawn. Dilation was performed with a Savary dilator with no resistance at 15 mm. The dilation site was examined and showed no change. Biopsies were taken with a cold forceps for histology. The pathology specimen was placed into Bottle Number 1. The entire examined stomach was normal. The examined duodenum was normal. Impression: - No endoscopic esophageal abnormality to explain patient's dysphagia. Esophagus dilated. Dilated. Biopsied. - Normal stomach. - Normal examined duodenum. Recommendation: - Discharge patient to home (with escort). - Return to referring physician as previously scheduled. - Patient has a contact number available for emergencies. The signs and symptoms of potential delayed complications were discussed with the patient. Return to normal activities tomorrow. Written discharge instructions were provided to the patient. - Pathology results will be reviewed with appropriate recommendations to follow. Delta Rodriguez MD 04/28/2024 8:50:41 AM This report has been signed electronically. documented in this encounter Nursing Notes * Fatimah Santana RN - 04/28/2024 9:25 AM EST Patient is alert, pain free and tolerating po fluids prior to discharge. Patient has been visited by Dr. Rodriguez. Patient has received and demonstrates understanding of discharge instructions. Patient ambulated to private auto accompanied by endo staff. * Fatimah Santana RN - 04/28/2024 8:53 AM EST HOB upright. Andrae liquids w/o problems. * Rosalina Kelly RN - 04/28/2024 8:52 AM EST See anesthesia record for medication administered during procedure. Rosalina Kelly RN Specimen(s) and location(s) verified with physician post procedure 8:52 AM Rosalina Kelly RN Pre cleaning of scope at the bedside started by fuel quality tech. Pt tolerated his EGD with dilation and bx's well. Escorted to the PACU lying quietly on his left side. * Fatimah Santana RN - 04/28/2024 8:51 AM EST Pt received in recovery lying on L side w/ HOB elevated. Abd soft. VSS. Call childers in reach. * Elroy Ventura RN - 04/28/2024 7:48 AM EST The following pt discharge instructions reviewed with pt prior to prodedure: No driving today. No alcohol today. No signing of legal documents. Rest as much as possible today and can return to normal activities tomorrow. No operating any heavy equipment today. Diet as tolerated. Pt verbalized understanding. documented in this encounter Plan of Treatment Upcoming Encounters Date Type Department Care Team (Late st Contact Info) Description 05/05/2024 9:30 AM EST Hospital Encounter MRI, [place] [address] [place] [place] [address] 05/05/2024 10:00 AM EST Appointment [facility] [address] [place] [address] 05/05/2024 3:30 PM EST Office Visit Otolaryngology/Head & Neck/Facial Plastic Surgery [address] [place] [address] Ede Vieira MD [address] [place] [address] 05/10/2024 7:15 AM EST Office Visit Non [facility], Operating Room, [place] [address] [facility] [place] [address] Khalif Wall MD [address] [place] [address] 05/12/2024 1:00 PM EST Telemedicine Psychology Meaghan Smith [place] [address] [place] [phone] 2, Psychology Group [address] [place] [address] 05/19/2024 8:40 AM EST Office Visit Pulmonary Medicine, [facility] [address] [place] [address] Rigoberto Lassiter MD [address] [place] [address] 05/19/2024 1:00 PM EST Telemedicine Psychology [facility] [place] [address] [place] [address] 2, [facility] [address] [place] [address] 05/26/2024 9:30 AM EST Office Visit General Surgery, [facility] [address] [place] [address] Khalif Wall MD [address] [place] [address] 05/26/2024 1:00 PM EST Telemedicine Psychology [facility] [address] [place] [address] 2, [facility] [address] [place] [address] 06/02/2024 1:00 PM EST Telemedicine Psychology [facility] [address] [place] [address] 2, [facility] [address] [place] [address] 06/09/2024 1:00 PM EST Telemedicine Psychology [facility] [address] [place] [address] 2, [facility] [address] [place] [address] 06/30/2024 1:00 PM EST Telemedicine Psychology [facility] [address] [place] [address] 2, [facility] [address] [place] [address] 07/07/2024 1:00 PM EST Telemedicine Psychology [facility] [address] [place] [address] 2, [facility] [address] [place] [address] 07/14/2024 1:00 PM EST Telemedicine Psychology [facility] [address] [place] [address] 2, [facility] [address] [place] [address] 07/20/2024 3:00 PM EST Office Visit [facility] [address] [place] [address] Torri Urbano CRNP [address] [facility] [place] [address] 09/01/2024 3:30 PM EDT Procedure Only Urology, [facility] [address] [facility] [place] [address] Enrique Wall MD [address] [facility] [place] [address] 12/14/2024 3:30 PM EDT Office Visit Cardiology, [facility] [address] [facility] [place] [address] Kassandra Sam CRNP [address] [place] [address] [place] [address] 01/18/2025 3:00 PM EDT Office Visit [facility] [place] [address] Bandar Bailon DO [address] [facility] [place] [address] Pending Results Name Type Priority Associated Diagnoses Date /Time SURGICAL PATHOLOGY Pathology Routine Gastroesophageal reflux disease, unspecified whether esophagitis present Esophageal dysphagia 04/28/2024 8:48 AM EST Scheduled Orders Name Type Priority Associated Diagnoses Orde r Schedule SURGICAL PATHOLOGY Pathology Routine Gastroesophageal reflux disease, unspecified whether esophagitis present Esophageal dysphagia Release Upon Ordering for 1 Occurrences starting 04/28/2024 Scheduled Procedures Name Priority Associated Diagnoses Date/Ti pr ESOPHAGOGASTRODUODENOSCOPY ( EGD), FLEXIBLE, TRANSORAL, DIAGNOSTIC Gastroesophageal reflux disease, unspecified whether esophagitis present Esophageal dysphagia 04/28/2024 8:38 AM EST COLONOSCOPY FLEXIBLE PROXIMA L DIAGNOSTIC [...] this encounter Medical Devices Implanted Type Area Organic Chemistry Professor Device Identifier Shelf Expiration Date Model / Serial / Lot Graft Lyoplnt 2.5x2.5cm 1x1 - [id number] Implanted:Qty: 1 on 03/07/2022 by Valeriano Hathaway MD at [facility] [place] : [employer] [id number] 10/20/2026 [id number] / [id number] / [id number] Graft Lyoplnt 2.5x2.5cm 1x1 - [id number] Implanted:Qty: 1 on 03/07/2022 by Valeriano Hathaway MD at [facility] B [place] : AESCULAP [id number] 10/20/2026 [id number] / [id number] / [id number] documented as of this encounter Procedures Procedure Name Priority Date/Time Associated Diagnosis Comments UPPER GI ENDOSCOPY 04/28/2024 8: 03 AM EST documented in this encounter Results * UPPER GI ENDOSCOPY (04/28/2024 8:03 AM EST) 04/28/2024 8:03 AM EST Narrative Procedure Note Bandar Bailon DO - 04/28/2024 8:03 AM EST [facility] Patient Name: Félix De La O Procedure Date: 04/28/2024 8:03 AM Date of : 1955 Admit Type: Outpatient Note Status:Finalized Date of : 1955 Admit Type: Outpatient Age: 69 Room: [facility] 2 Gender: Male Note Status: Finalized Procedure: Upper GI endoscopy Indications: Dysphagia, Heartburn Providers: Delta Rodriguez MD (Doctor) Referring MD: Bandar Bailon (Referring MD) Medicines: Propofol per Anesthesia Complications: No immediate complications. Estimated blood loss:None. Procedure: Pre-Anesthesia Assessment: - - Prior to the procedure, a History and Physicalwas performed, patient medications, allergies and sensitivities were reviewed. Thepatient's tolerance of previous anesthesia was reviewed. See [facility] for furtherdetails. - The risks, benefits, and alternatives of theprocedure including the sedation options and risks were discussed with the patient.All questions were answered and informed consent was obtained. - Patient identification and proposed procedurewere verified prior to the procedure by the physician and the nurse. The procedure wasverified in the procedure room. - See [facility] for documentation of the pre-procedureassessment including ASA status. - After I obtained informed consent, the scope wascarefully and meticulously passed under direct vision only when the lumen wasdefinitively identified. CO2 insufflation was utilized throughout the entire procedureexclusively. After obtaining informed consent, the endoscope waspassed under direct vision. All instruments were visually inspected immediatelybefore and after removal from the patient to ensure they are fully intact. Throughout the procedure, the patient's bloodpressure, pulse, and oxygen saturations were monitored continuously.The upper GI endoscopywas accomplished without difficulty. The patient tolerated the procedurewell. The GIF-HQ190 Endoscope ([id number]) was introduced through the mouth, andadvanced to the second part of duodenum. Findings & Specimens: No endoscopic abnormality was evident in the esophagus to explain thepatient's complaint of dysphagia. It was decided, however, to proceed with dilation of the entireesophagus. A guidewire was placed and the scope was withdrawn. Dilation was performed with a Savary dilatorwith no resistance at 15 mm. The dilation site was examined and showed no change. Biopsies were takenwith a cold forceps for histology. The pathology specimen was placed into Bottle Number 1. The entire examined stomach was normal. The examined duodenum was normal. Impression: - No endoscopic esophageal abnormality to explainpatient's dysphagia. Esophagus dilated. Dilated. Biopsied. - Normal stomach. - Normal examined duodenum. Recommendation: - Discharge patient to home (with escort). - Return to referring physician as previouslyscheduled. - [facility] The signs and symptoms of potential delayed complications were discussed withthe patient. Return to normal activities tomorrow. Written discharge instructionswere provided to the patient. - Pathology results will be reviewed withappropriate recommendations to follow. Delta Rodriguez MD 04/28/2024 8:50:41 AM This report has been signed electronically. Bandar Bailon DO [facility] documented in this encounter Visit Diagnoses Diagnosis Gastroesophageal reflux disease, unspecified whether esophagitis present Esophageal dysphagia Dysphagia, pharyngoesophageal phase documented in this encounter Administered Medications Inactive Administered Medications - up to 3 most recent administrations Medication Order MAR Action Action Date Dose Rate Site Acetaminophen (Tylenol) tab 650 mg 650 mg, Oral, PRN Pain, Mild, Starting on Fri04/28/24 at 0902, Until Fri04/28/24 at 1326, For 1 dose, Maximum of 4 grams (4000 mg) per day., Post-op isolyte-S pH 7.4 infusion Intravenous, at 75 mL/hr, Plasma-LYTE 148, isolyte-S, and isolyte-S pH 7.4 are considered equivalent - including for MAR barcode scanning., CONTINUOUS, Starting on Fri04/28/24 at 0830, Until Fri04/28/24 at 1326, Pre-Op Restarted 04/28/2024 8:54 AM EST Continue from Pre-Op 04/28/2024 8:35 AM EST 75 mL/hr New Bag 04/28/2024 8:08 AM EST 75 mL/hr Figueroa nd Right documented in this encounter Active and Recently Administered Medications Times are shown in EST. Continuous Medication Order 04/26/2024 04/27/2024 04/28/2024 isolyte-S pH 7.4 infusion Intravenous, at 75 mL/hr, Plasma-LYTE 148, isolyte-S, and isolyte-S pH 7.4 are considered equivalent - including for MAR barcode scanning., CONTINUOUS, Starting on Fri04/28/24 at 0830, Until Fri04/28/24 at 1326, Pre-Op 0808 (New Bag - Prov ider: Elroy Ventura RN)0835 (Continue from Pre-Op - Provider: Fanny Casillas CRNA)0853 (Paused - Provider: Fanny Casillas CRNA - Comment: Switch to gravity)0854 (Restarted - Provider: Fanny Casillas CRNA) PRN Medication Order 04/26/2024 04/27/2024 04/28/2024 Acetaminophen (Tylenol) tab 650 mg 650 mg, Oral, PRN Pain, Mild, Starting on Fri04/28/24 at 0902, Until Fri04/28/24 at 1326, For 1 dose, Maximum of 4 grams (4000 mg) per day., Post-op documented in this encounter Advance Directives * [...] the patient have Health Care Power of Drier Operator Head? No * Full Code Date Activated Date [...] Directives occurred with: Not Discussed Care Teams Associate Doctor Relationship Specialty Start Date End Date Bandar Bailon DO [address] [place] [address] PCP - General Family Medicine 10/10/20 documented as of this encounter
--- OUTSIDE RECORDS SUMMARY | 2024-05-10 05:41 | External Medical Summary ---
Author Name Unknown Address Unknown Organization [facility] [place] [address] Laboratory Report Ordering Provider Test Date Status GRAHAM STEPHENS 04/21/2024 14:02:10 Final Observation Date Value Abnormality Reference (Units ) Status WBC, Total 04/21/2024 14:02:10 4.99 4.00-10.8 0 (K/uL) Final RBC 04/21/2024 14:02:10 5.07 4.50-5.25 (M/uL) Final Hemoglobin 04/21/2024 14:02:10 14.6 14.0-16.8 (g/dL) Final HCT 04/21/2024 14:02:10 45.7 40.0-48.4 (%) Final MCV 04/21/2024 14:02:10 90.1 82.0-99.5 (fL) Final MCH 04/21/2024 14:02:10 28.8 27.0-34.0 (pg) Final MCHC 04/21/2024 14:02:10 31.9 32.0-36.0 (g/dL) Final RDW 04/21/2024 14:02:10 12.6 11.5-15.5 (%) Final Platelets 04/21/2024 14:02:10 214 140-400 (K /uL) Final MPV 04/21/2024 14:02:10 10.9 6.6-11.1 ( fL) Final Performing Location [facility] [address] [place] [address]
--- OUTSIDE RECORDS SUMMARY | 2024-05-10 05:41 | External Medical Summary ---
Author Name Unknown Address Unknown Organization K0G:[facility] [place] [facility] [address] [place] [address] Laboratory Report Ordering Provider Test Date Status GRAHAM STEPHENS 04/21/2024 14:02:10 Final Observation Date Value Abnormality Reference (Units ) Status BUN 04/21/2024 14:02:10 13 6-20 (mg/dL) Final Creatinine 04/21/2024 14:02:10 0.9 0.6-1.2 (mg/dL) Final Glomerular filtration rate/1.73 sq M.predicted [Volume Rate/Area] in Serum, Plasma or Blood by Creatinine-based formula (CKD-EPI) 04/21/2024 14:02:10 >90 >=60 (mL/min) Final eGFR is calculated based on the CKD-EPI 2020 equation. Sodium 04/21/2024 14:02:10 142 135-146 (m mol/L) Final Potassium 04/21/2024 14:02:10 4.0 3.5-5.1 (m mol/L) Final Cl 04/21/2024 14:02:10 102 98-107 (mm ol/L) Final CO2 04/21/2024 14:02:10 30 22-32 (mmo l/L) Final Anion gap 04/21/2024 14:02:10 10 7-15 (mmol /L) Final Glucose 04/21/2024 14:02:10 89 70-120 (mg /dL) Final Albumin 04/21/2024 14:02:10 4.4 3.8-5.0 (g /dL) Final AST (Aspartate aminotransferase) 04/21/2024 14:02:10 20 10-50 (U/L) Final Results may be falsely eleva roly due to hemolysis. Alk Phos 04/21/2024 14:02:10 125 35-130 (U/ L) Final Bilirubin, Total 04/21/2024 14:02:10 0.4 <=1 .2 (mg/dL) Final Calcium 04/21/2024 14:02:10 9.4 8.4-10.2 ( mg/dL) Final Protein 04/21/2024 14:02:10 7.0 6.0-8.3 (g /dL) Final ALT (Alanine aminotransferase) 04/21/2024 14:02:10 24 10-50 (U/L) Final Performing Location [facility] [address] [facility] [address]
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
--- OUTSIDE RECORDS SUMMARY | 2024-05-10 05:42 | External Medical Summary | Summary of Care ---
Author Name Unknown Organization [facility] Address [address] [facility] [place] [address] Phone [phone] Care Team Providers Care Industrial Registered Nurse Name Role Phone Dharmesh Bailonjayla Garrisonpriyanka Primary Care Provider Reason for Visit * Reason Onset Date Comments Test Results 04/12/2024 Noc ox Encounter Details Date Type Department Care Team (Late st Contact Info) Description 04/12/2024 Telephone Pulmonary Medicine, [facility] [address] [facility] [place] [address] Rigoberto Lassiter MD [address] [place] [address] Test Results (Noc ox) Allergies Active Allergy Reactions Criticality Noted Date Comments Sulfamethoxazole-Trimet hoprim Itching 07/16/2021 Pt noted total body itching within one hour of first dose. Took benedryl and inhaler and stopped med. Codeine Other (Please comment) Medium 04/23/2017 Allergic reaction Other reaction(s): UNSURE REACTION - HAPPENED A CHILD Sulfa Antibiotics High 05/22/2022 Other reaction(s): Swelling of Lip/Tongue/Throat documented as of this encounter (statuses as of 04/12/2024) Medications Medication Sig Dispensed Refills Start Date [...] O VIAL 2 mL 6 01/29/2022 Active Calcium Carb-Cholecalcifer ol 600-200 MG-UNIT Oral Tablet [...] (=3 months supply). [facility] at [address] [place] [address], [place] [address], [place] [address]. 1 g 09/12/2022 Active Mupirocin 2 % [...] at bedtime. 90 Tablet 3 06/24/2023 Active Pregabalin 150 MG Oral Capsule (Lyrica)Indication s:Hereditary and idiopathic peripheral neuropathy Take 1 capsule by mouth in the morning and 2 capsules by mouth at bedtime 90 Capsule 2 09/17/2023 Active Syringe/Needle (Disp) 22G X 1-1/2" 5 [...] during sickness 400 Tablet 1 04/06/2024 Active Hospital, Clinic, or Other Facility Administered Medication Ordered Dose Route Frequency Start Date End Date Status Albuterol Sulfate (Proventil) (2.5 MG/3ML) 0.083% inhalation solution 2.5 mgIndications:Mild persistent asthma without complication,SOB (shortness of breath) 2.5 mg NEBULIZER Q4H PRN 05/30/2021 Act mary jo documented as of this encounter (statuses as of 04/12/2024) Active Problems Problem Noted Date Diagnosed Date [...] 03/18/2018 Overview: 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 Increased risk for Long QT Syndrome. 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 hosp w/gastroenteritis. Overweight (BMI 25.0-29.9) 02/22/2022 0 10/29/2022 Vasospasm of peripheral artery 10/22/2021 02/22/2022 Elevated prolactin level 10/30/2019 Bradycardia, sinus 01/23/2018 0 Adrenal insufficiency 11/06/20172017 Anesthesia complication 10/13/2017 08/08/2021 Overview: Breathing issues Neuropathy 01/15/2016 12/09/2016 Sialolithiasis [...] as of this encounter (statuses as of 04/12/2024) Immunizations Name Administration Dates Next Due COVID-19 mRNA, LNP-s, No Pre serve, 2-Dose Series ([employer]) 04/26/2021,10/20/2020,09/27/2020 COVID-19, MRNA-LNP, 23-24, P F, 51 [...] the money to buy more. Never true 03/17/20 24 Within the past 12 months, t he food you bought just didn't last and you didn't have money to get more. Never true 03/17/2024 Childcare Answer Date Recorded Do you feel overwhelmed with taking care of a child, family member or friend? No 03/17/2024 Does your family need help f inding childcare? (Household - for ages 0-17 years) Not on file 03/17/2024 Clothing Answer Date Recorded Have you been unable to get clothing when it was really needed? No 03/17/2024 Is your family able to get c lothes or diapers when needed? (Household - for ages 0-17 years) Not on file 03/17/2024 Personal Safety Answer Date Recorded Do you feel unsafe or have concerns for your saf ety? No 03/17/2024 Do you have concerns for you r family's safety? (Household - for ages 0-17 years) Not on file 03/17/2024 Utilities Answer Date Recorded Do you have trouble paying y our heating, water, or electric bill? Yes 03/17/2024 Is your family able to pay t he heat, water, or electric bill? (Household - for ages 0-17 years) Not on file 03/17/2024 Does your family have access to good internet? (Household - for ages 0-17 years) Not on file 03/17/2024 Employment Status Answer Date Recorded Are you unemployed or without regular income? No 03/17/2024 Does the household have a re lar source of income? (Household - for ages 0-17 years) Not on file 03/17/2024 Social Connections Answer Date Recorded How often do you feel lonely or isolated from th ose around you? Never 03/17/2024 Financial Resource Strain Answer Date R ecorded Do you have any trouble payi ng for your medications, or do you think you might in the future? No 03/17/2024 Does your family have troubl e paying for medicine? (Household - for ages 0-17 years) Not on file 03/17/2024 Transportation Needs Answer Date Record ed Do you have trouble getting a ride to medical visits or work? (Adult - for ages 18 years and over) Not on file 03/17/2024 Does your family have a hard time getting a ride to doctors visits? (Household - for ages 0-17 years) Not on file 03/17/2024 Has lack of transportation k ept you from medical appointments, meetings, work, or from getting things needed for daily living? Check all that apply. No 03/17/2024 Do you (or your family) have trouble finding or paying for a ride (transportation)? (Household - for ages 0-17 years) Not on file 03/17/2024 Housing Stability Answer Date Recorded Do you currently live in a s helter or have no steady place to sleep at night? No 03/17/2024 Do you think you are at risk of becoming homeless? (Adult - for ages 18 years and over) Not on file 03/17/2024 Does your family worry about paying for your home or becoming homeless? (Household - for ages 0-17 years) Not on file 0 03/17/2024 Are you homeless or worried that you might be in the future? No 03/17/2024 Are you (or your family) venkat eless or worried that you might be in the future? (Household - for ages 0-17 years) Not on file Food Insecurity Answer Date Recorded Do you need food for this week? No 03/17/2024 Are you able to get enough f ood for your family? (Household - for ages 0-17 years) Not on file 03/17/2024 Does your family need food t his week? (Household - for ages 0-17 years) Not on file 03/17/2024 Do you always have enough fo od for your family? (Household - for ages 0-17 years) Not on file 03/17/2024 Sex and Gender Information Value Date Recorded [...] encounter Miscellaneous Notes * Telephone Encounter - Danelle Romero LPN - 04/12/2024 11:04 AM EDT Pt aware of results and rec's from . Pt was at work at the time of this maurice and requesteda [employer] message be sent with the results. Pt was also made aware he may need a titration study asthe one done 12/2022 showed his sat's stayed at 94 % with use of the Bipap O2 order has been submitted to * Telephone Encounter - Debora Gonzalez LPN - 04/12/2024 10:21 AM EDT ----- Message from Rigoberto Lassiter MD sent at 04/12/2024 9:39 AM EDT ----- Nocturnal oximetry 04/05/2024 on BiPAP and room air was positive for nocturnal hypoxia. Two LPM oxygen bleed in BiPAP therapy recommended and is being ordered. documented in this encounter Plan of Treatment Upcoming Encounters Date Type Department Care Team (Latest Contact Info) Description 04/21/2024 1:15 PM EDT Office Visit General Surgery, [facility] [address] [place] [address] Khalif Wall MD [address] [place] [address] 04/28/2024 9:00 AM EST Hospital Encounter ENDO OSS[facility], Endoscopy Room [facility] [address] [place] [phone] Delta Rodriguez MD [address] [place] [address] 04/28/2024 9:00 AM EST - 04/28/2024 9:30 AM EST Surgery ENDO [facility], Endoscopy Room [facility] [address] [place] [address] Delta Rodriguez MD [address] [place] [address] ESOPHAGOGASTRODUODENOSCOPY (EGD), FLEXIBLE, TRANSORAL, DIAGNOSTIC 05/05/2024 9:30 AM EST Hospital Encounter [facility] [place] [address] [address] [facility] [place] [address] 05/05/2024 10:00 AM EST Appointment [place], [place] [address] [address] [facility] [place] [address] 05/05/2024 3:30 PM EST Office Visit Otolaryngology/ Head & Neck/Facial Plastic Surgery [facility] [place] [address] Ede Vieira MD [address] [place] [address] 05/19/2024 8:40 AM EST Office Visit Pulmonary Medicine, [facility] [address] [facility] [place] [address] Rigoberto Lassiter MD [address] [place] [address] 07/20/2024 3:00 PM EST [facility] [address] [facility] [place] [address] Torri Urbano CRNP [address] [facility] [place] [address] 09/01/2024 3:30 PM EDT Procedure Only Urology, [facility] [address] [facility] [place] [address] Enrique Wall MD [address] [facility] [place] [address] 12/14/2024 3:30 PM EDT Office Visit Cardiology, [facility] [address] [facility] [place] [address] Kassandra Sam CRNP [address] [place] [address] [place] [address] 01/18/2025 3:00 PM EDT [facility] [address] [facility] [place] [address] Bandar Bailon DO [address] [facility] [place] [address] Scheduled Procedures Name Priority Associated Diagnoses Date/Ti [...] this encounter Medical Devices Implanted Type Area Negative Developer Device Identifier Shelf Expiration Date Model / Serial / Lot Graft Lyoplnt 2.5x2.5cm 1x1 - [id number] Implanted:Qty: 1 on 03/07/2022 by Valeriano Hathaway MD at OR [facility] B CASIMIRO : AESCULAP [id number] 10/20/2026 [id number] / [id number] / [id number] Graft Lyoplnt 2.5x2.5cm 1x1 - [id number] Implanted:Qty: 1 on 03/07/2022 by Valeriano Hathaway MD at OR [facility] B KIRKPATRICK : AESCULAP [id number] 10/20/2026 [id number] / [id number] / [id number] documented as of this encounter Advance Directives [...] the patient have Health Care Power of Lone Lead Lineman? No * Full Code Date Activated Date [...] Directives occurred with: Not Discussed Care Teams Industrial Registered Nurse Relationship Specialty Start Date End Date Bandar Bailon DO [address] [place] [address] PCP - General Family Medicine 10/10/20 documented as of this encounter
--- OUTSIDE RECORDS SUMMARY | 2024-05-10 05:42 | External Medical Summary | Summary of Care ---
Author Name Unknown Organization [facility] Address [address] [facility] [place] [address] Phone [phone] Care Team Providers Care Mixing Operator Name Role Phone Bailon Bandar Li DO Primary Care Provider Encounter Details Date Type Department Care Team (Late st Contact Info) Description 04/06/2024 Orders Only Endocrinology [facility] Aleks Wade [address] [place] [address] [place] [address] Mickey Florence DO [address] [place] [address] [place] [address] Allergies Active Allergy Reactions Criticality Noted Date Comments Sulfamethoxazole-Trimet hoprim Itching 07/16/2021 Pt noted total body itching within one hour of first dose. Took benedryl and inhaler and stopped med. Codeine Other (Please comment) Medium 04/23/2017 Allergic reaction Other reaction(s): UNSURE REACTION - HAPPENED A CHILD Sulfa Antibiotics High 05/22/2022 Other reaction(s): Swelling of Lip/Tongue/Throat documented as of this encounter (statuses as of 04/06/2024) Medications Medication Sig Dispensed Refills Start Date End Date Status Hydrocortisone 5 MG Oral Tablet (Cortef) take 2 tablets in the morning , 1 tablet at lunch and 1 tablet at supper, double or triple dose during sickness 400 Tablet 1 4 Active OXYGEN oxygen at 2 lpm via NC during all periods of sleep 1 Each 0 5 Suspended Additional Information Aspirin 81 MG Oral Tablet Chewable Take 1 Tablet by mouth in the morning. 34 Tab 11 1 Suspended BiPAP every night at bedtime. Suspended Hydrocortisone Na Succinate PF 100 MG Injection Solution Reconstituted (Solu-Cortef) Use in emergency-adrenal crisis ACT O VIAL 2 mL 6 2 Suspended Additional Information Calcium Carb-Cholecalcife rol 600-200 MG-UNIT Oral Tablet Take by mouth 2 Tablets in the morning. 180 Tablet 3 2 Suspended Additional Information Diathrive Pen Needle 31G X 8 MM (Insulin Pen Needle)Indication s:B12 deficiency Use for b-12 injections once monthly as indicated. 30 Each 3 2 Suspended Additional Information Tobramycin Powder Compounded tobramycin 40mg capsules to be added to sinus rinse twice daily. Dispense 180 of each (=3 months supply). [facility] at [address] [place] [address], [address], [place] [address]. 1 g 3 Suspended Additional Information Mupirocin 2 % External Ointment (Bactroban) Apply to affected toenail sites once daily. Cover with dry bandage. 22 g 3 Suspended Additional Information Patient not taking.Reported on 03/15/2024 Atorvastatin Calcium 20 MG Oral Tablet (Lipitor) TAKE 1 TABLET BY MOUTH IN THE MORNING 90 Tablet 1 3 Suspended Additional Information Restasis 0.05 % Ophthalmic EmulsionIndicatio ns:Pituitary macroadenoma (HCC) Instill 1 Drop into both eyes in the morning and 1 Drop before bedtime. 180 Each 3 3 Suspended Additional Information levETIRAcetam 500 MG Oral Tablet (Keppra) Take 1 Tablet by mouth in the morning and 1 Tablet before bedtime. 180 Tablet 1 3 Suspended Additional Information Montelukast Sodium 10 MG Oral Tablet (Singulair)Indica tions:Mild persistent asthma without complication Take 1 Tablet by mouth at bedtime. 90 Tablet 3 3 Suspended Additional Information Vitamin D3 20 MCG (800 UNIT) Oral Tablet Take 1capsule by mouth in the morning. 90 Tablet 3 3 Suspended Additional Information Dicyclomine HCl 10 MG Oral Capsule (Bentyl) Take 1 Capsule by mouth 2 times a day as needed for Cramping. 180 Capsule 3 3 Suspended Additional Information DULoxetine HCl 60 MG Oral Capsule Delayed Release Particles (Cymbalta) Take 1 Capsule by mouth in the morning. Do not cut, crush or chew. 90 Capsule 5 3 Suspended Additional Information Mesalamine 1.2 GM Oral Tablet Delayed Release (Lialda) take two tablets by mouth daily 180 Tablet 3 3 Suspended Additional Information Omeprazole 20 MG Oral Capsule Delayed Release (PriLOSEC) Take 1 Capsule by mouth in the morning. 90 Capsule 3 3 Suspended Additional Information rOPINIRole HCl 2 MG Oral Tablet (Requip)Indicatio ns:Restless legs syndrome Take 1 Tablet by mouth at bedtime. 90 Tablet 3 4 Suspended Additional Information Pregabalin 150 MG Oral Capsule (Lyrica)Indicatio ns:Hereditary and idiopathic peripheral neuropathy Take 1 capsule by mouth in the morning and 2 capsules by mouth at bedtime 90 Capsule 2 4 Suspended Additional Information Syringe/Needle (Disp) 22G X 1-1/2" 5 MLIndications:B12 deficiency USE FOR INJECTION OF DEXAMETHASONE OR HYDROCORTISONE FOR ADRENAL CRISIS 3 Each 5 4 Suspended Additional Information cycloSPORINE 0.05 % Ophthalmic Emulsion (Restasis) place 1 drop into both eyes twice daily 180 Each 3 4 Suspended Additional Information Metoclopramide HCl 10 MG Oral Tablet (Reglan) TAKE ONE TABLET BY MOUTH THREE TIMES DAILY 30 MIN BEFORE MEALS 360 Tablet 3 4 Suspended Additional Information Nadolol 40 MG Oral Tablet (Corgard)Indicati ons:NSVT (nonsustained ventricular tachycardia) ([facility]) Take 1 Tablet by mouth in the morning. 90 Tablet 1 4 Suspended Additional Information Potassium Chloride ER 10 MEQ Oral Capsule Extended ReleaseIndication s:Hypokalemia TAKE ONE CAPSULE BY MOUTH IN THE MORNING AND ONE CAPSULE BEFORE BEDTIME 180 Capsule 2 4 Suspended Additional Information Fluticasone-Umecl idin-Vilant 200-62.5-25 MCG/ACT Aerosol Powder Breath Activated (Trelegy Ellipta) inhale one puff by mouth in the morning 60 Each 10 4 Suspended Additional Information Albuterol Sulfate HFA 108 (90 Base) MCG/ACT Inhalation Aerosol Solution Inhale 2 Puffs by mouth every 6 hours as needed for Wheezing. 54 g 3 4 Suspended Additional Information Full Kit Nebulizer Set Use with Nebulizer Medication EVERY SIX HOURS WHILE AWAKE as directed. Dx Code: J45.30 1 Each 3 4 Suspended Additional Information Albuterol Sulfate 0.63 MG/3ML Inhalation Nebulization Solution (Accuneb) Inhale 1 Vial via nebulizer every 6 hours as needed for Wheezing or Shortness of Breath. 360 mL 4 Suspended Additional Information Cyanocobalamin 1000 MCG/ML Injection Solution (Cyanocobalamin) INJECT 1,000 MCG (1ML) INTRAMUSCULARLY DIRECTED FOR 30 DAYS 3 mL 4 Suspended Additional Information BD Luer-Eli Syringe 22G X 1" 3 ML (Syringe/Needle (Disp))Indication s:B12 deficiency FOR USE WITH B12 INJECTIONS 3 Each 3 4 Suspended Additional Information predniSONE 20 MG Oral Tablet (Deltasone) Take 1 Tablet by mouth in the morning. 5 Tablet 4 Suspended Additional Information Patient not taking.Reported on 03/15/2024 Famotidine 40 MG Oral Tablet (Pepcid) Take 1 tablet by mouth daily. 90 Tablet 1 4 Suspended Additional Information Diclofenac Sodium 50 MG Oral Tablet Delayed Release (Voltaren)Indicat ions:Lumbar degenerative disc disease,Lumbar radiculopathy Take 1 Tablet by mouth in the morning and 1 Tablet before bedtime take With food 180 Tablet 1 4 Suspended Additional Information Hydrocortisone 5 MG Oral Tablet (Cortef) take 2 tablets in the morning , 1 tablet at lunch and 1 tablet at supper, double or triple dose during sickness 400 Tablet 1 4 024 Discontinued (Refill) documented as of this encounter (statuses as of 04/06/2024) Active Problems Problem Noted Date Diagnosed Date [...] 03/18/2018 Overview: 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 Increased risk for Long QT Syndrome. 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 Asthma, mild persistent 04/29/2012 Overview: Allergic component ROBERT (obstructive sleep apnea) 02/01/2010 Overview: documented as of this encounter (statuses as of 04/06/2024) Resolved Problems Problem Noted Date Diagnosed Date [...] as of this encounter (statuses as of 04/06/2024) Immunizations Name Administration Dates Next Due COVID-19 mRNA, LNP-s, No Pre serve, 2-Dose Series ([employer]) 04/26/2021,10/20/2020,09/27/2020 COVID-19, MRNA-LNP, 23-24, P F, 51 [...] 1:15 PM EDT Office Visit General Surgery, [facility] [address] [place] [address] Khalif Wall MD [address] [place] [address] 04/28/2024 9:00 AM EST Hospital Encounter ENDO [facility], Endoscopy Room [facility] [address] [place] [phone] [place] Rodriguez MD [address] [place] [address] 04/28/2024 9:00 AM EST - 04/28/2024 9:30 AM EST Surgery ENDO [facility], Endoscopy Room [facility] [address] [place] [phone] [place] Rodriguez MD 132 [facility] [place] [address] ESOPHAGOGASTRODUODENOSCOPY (EGD), FLEXIBLE, TRANSORAL, DIAGNOSTIC 05/05/2024 9:30 AM EST Hospital Encounter [facility] [address] [place] [address] 05/05/2024 10:00 AM EST Appointment [place] [address] [place] [address] 05/05/2024 3:30 PM EST Office Visit Otolaryngology/ Head & Neck/Facial Plastic Surgery [address] [place] [address] Ede Vieira MD [address] [place] [address] 05/12/2024 8:40 AM EST Office Visit Pulmonary Medicine, [facility] [address] [facility] [place] [address] Rigoberto Lassiter MD [address] [facility] [place] [address] 07/20/2024 3:00 PM EST Office Visit Family Practice [facility] [address] [facility] [place] [address] Torri Urbano CRNP [address] [place] [address] 09/01/2024 3:30 PM EDT Procedure Only Urology, [facility] [place] [address] Enrique Wall MD [address] [place] [address] 12/14/2024 3:30 PM EDT Office Visit Cardiology, [facility] [address] [place] [address] Kassandra Sam CRNP [address] [place] [address] 01/18/2025 3:00 PM EDT Office Visit Family Practice [facility] [address] [place] [address] Bandar Bailon DO [address] [place] [address] Scheduled Procedures Name Priority Associated Diagnoses Date/Ti me REPAIR INITIAL INGUINAL RUBIN IA REDUCIBLE AGE 5 OR MORE Left inguinal hernia 04/06/2024 1:48 PM EDT ESOPHAGOGASTRODUODENOSCOPY ( EGD), FLEXIBLE, TRANSORAL, DIAGNOSTIC Gastroesophageal [...] this encounter Medical Devices Implanted Type Area Brush Operator Device Identifier Shelf Expiration Date Model / Serial / Lot Graft Lyoplnt 2.5x2.5cm 1x1 - [id number] Implanted:Qty: 1 on 03/07/2022 by Valeriano Hathaway MD at OR [facility] B KIRKPATRICK : ABBEY [id number] 10/20/2026 [id number] / [id number] / [id number] Graft Lyoplnt 2.5x2.5cm 1x1 - [id number] Implanted:Qty: 1 on 03/07/2022 by Valeriano Hathaway MD at OR [facility] B KIRKPATRICK : AESCULAP [id number] 10/20/2026 [id number] / [id number] / [id number] documented as of this encounter Advance Directives * Full Code (Latest Code Status on File) Date Activated Date Inactivated Comments 04/06/2024 8:46 AM This order re flects the patients wishes and were consensually agreed [...] the patient have Health Care Power of Die Trouble Shooter? No * Full Code Date Activated Date [...] Directives occurred with: Not Discussed Care Teams Mixing Operator Relationship Specialty Start Date End Date Bandar Bailon DO [address] [place] [address] PCP - General Family Medicine 10/10/20 documented as of this encounter
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
--- OUTSIDE RECORDS SUMMARY | 2024-05-10 05:42 | External Medical Summary | Summary of Care ---
Author Name Unknown Organization [facility] Address [address] [facility] [place] [address] Phone [phone] Care Team Providers Care Maintenance Helper Name Role Phone Bandar Bailon DO Primary Care Provider Reason for Visit * Reason Comments Medication Refill Encounter Details Date Type Department Care Team (Late st Contact Info) Description 04/14/2024 Refill Family Practice [facility] [address] [place] [address] Bandar Bailon DO [address] [place] [address] Hereditary and idiopathic peripheral neuropathy Allergies Active [...] as of this encounter (statuses as of 04/16/2024) Medications Medication Sig Dispensed Refills Start Date [...] each (=3 months supply). [facility] at [address] [place] [address], [facility] 100, [place] [address]. 1 g 3 Active Mupirocin 2 % [...] at bedtime. 90 Tablet 3 4 Active Syringe/Needle (Disp) 22G X 1-1/2" [...] Oral Tablet (Corgard)Indicatio ns:NSVT (nonsustained ventricular tachycardia) ([facility]) Take 1 Tablet by mouth [...] during sickness 400 Tablet 1 4 Active Pregabalin 150 MG Oral Capsule (Lyrica)Indication s:Hereditary and idiopathic peripheral neuropathy Take 1 capsule by mouth in the morning and 2 capsules by mouth at bedtime 90 Capsule 2 4 Active Pregabalin 150 MG Oral Capsule (Lyrica)Indication s:Hereditary and idiopathic peripheral neuropathy Take 1 capsule by mouth in the morning and 2 capsules by mouth at bedtime 90 Capsule 2 4 04/14/20 24 Discontinu ed(Refill) Hospital, Clinic, or Other Facility Administered Medication Ordered Dose Route Frequency Start Date End Date Status Albuterol Sulfate (Proventil) (2.5 MG/3ML) 0.083% inhalation solution 2.5 mgIndications:Mild persistent asthma without complication,SOB (shortness of breath) 2.5 mg NEBULIZER Q4H PRN 05/30/2021 Act mary jo documented as of this encounter (statuses as of 04/16/2024) Active Problems Problem Noted Date Diagnosed Date [...] 03/18/2018 Overview: 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 Increased risk for Long QT Syndrome. 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 Asthma, mild persistent 04/29/2012 Overview: Allergic component ROBERT (obstructive sleep apnea) 02/01/2010 Overview: documented as of this encounter (statuses as of 04/16/2024) Resolved Problems Problem Noted Date Diagnosed Date [...] as of this encounter (statuses as of 04/16/2024) Immunizations Name Administration Dates Next Due COVID-19 mRNA, LNP-s, No Pre serve, 2-Dose Series ([employer]) 04/26/2021,10/20/2020,09/27/2020 COVID-19, MRNA-LNP, 23-24, P F, 51 [...] encounter Miscellaneous Notes * Telephone Encounter - Verónica Lovett MD - 04/16/2024 1:25 PM EDTSigned Prescriptions: Disp Refills Pregabalin 150 MG Oral Capsule (Lyrica) 90 Cap*2 Sig: Take 1 capsule by mouth in the morning and 2 capsules by mouth at bedtime Authorizing Provider: VERÓNICA LOVETT * Telephone Encounter - Bin Franklin RPh - 04/16/2024 11:30 AM EDTPending Prescriptions: Disp Refills Pregabalin 150 MG Oral Capsule (Lyrica) 90 Cap*2 Sig: Take 1 capsule by mouth in the morning and 2 capsules by mouth at bedtime * Telephone Encounter - Bin Franklin RPh - 04/16/2024 11:29 AM EDT I have reviewed the patients controlled substance dispensing history in the Prescription Drug Monitoring Program in compliance with the [facility] regulations before prescribing a controlled substance. PDMP checked on 04/16/2024. Pending Prescriptions: Disp Refills Pregabalin 150 MG Oral Capsule (Lyrica) 90 Cap*2 Sig: Take 1 capsule by mouth in the morning and 2 capsules by mouth at bedtime Last Visit: 02/26/2024 (in office), 11/19/2019 (telemedicine) Next Visit: 07/20/2024 Date medication was last filled: 01/22/24 Date medication is due for refill: 02/20/24 Pharmacy: [facility] Is this request for a controlled substance? Yes and Urine Drug Screen Not completed Toxicology results: No results found. However, due to the size of the patient record, not all encounters were searched.Please check Results Review for a complete set of results. Please approve if appropriate. Thanks, Bin Franklin Rph, Pharm D. Clinical Pharmacist Centralized Clinical Pharmacy Services/[facility] [phone] 04/16/2024,11:30 AM * Telephone Encounter - Leslie Manzo CPhT - 04/15/2024 10:47 AM EDT Did you pend patient's preferred pharmacy and medication before forwarding?yes Pharmacy: [facility] Pending Prescriptions: Disp Refills Pregabalin 150 MG Oral Capsule (Lyrica) 90 Cap*2 Sig: Take 1 capsule by mouth in the morning and 2 capsules by mouth at bedtime Last Visit: 02/26/2024 (in office), 11/19/2019 (telemedicine) Next Visit: 07/20/2024 If no future appointments scheduled, and last appointment is greater than a year ago, please schedule patient for a follow-up appointment Last date the medication was ordered: 09/17/23 Is this request for a controlled substance?Yes, What was the last refill date 09/17/23 w/ quantity 90 and dosage bid and Urine Drug Screen Not completed Urine Drug Screen:No results found. However, due to the size of the patient record, not all encounters were searched. Please check Results Review for a complete set of results. Patient Phone Numbers Labs: Lab Results Component Value Date/Time CREAT 1.0 12/01/2023 04:09 PM CREAT 1.0 06/21/2020 04:22 PM POTASSIUM 4.5 12/01/2023 04:09 PM POTASSIUM 4.5 01/26/2020 11:51 AM TSH 1.24 01/29/2024 11:30 AM TSH 0.79 01/26/2020 11:51 AM LDL 68 05/06/2023 09:33 AM LDL 103 12/13/2017 09:59 AM LDL NOT APPLICABLE 12/13/2017 09:59 AM ALT 24 12/01/2023 04:09 PM ALT 19 01/26/2020 11:51 AM HGBA1C 5.7 (H) 05/06/2023 09:33 AM HGBA1C 5.5 07/27/2014 11:22 AM documented in this encounter Plan of Treatment Upcoming Encounters Date Type Department Care Team (Latest Contact Info) Description 04/21/2024 1:15 PM EDT Office Visit General Surgery, [facility] [address] [place] [address] Khalif Wall MD [address] [place] [address] 04/28/2024 9:00 AM EST Hospital Encounter ENDO [facility], Endoscopy Room [facility] [address] Delta Rodriguez MD [address] [place] [address] 04/28/2024 9:00 AM EST - 04/28/2024 9:30 AM EST Surgery ENDO [facility], Endoscopy Room [facility] [address] [place] [phone] Delta Rodriguez MD [address] [place], [place] [address] ESOPHAGOGASTRODUODENOSCOPY (EGD), FLEXIBLE, TRANSORAL, DIAGNOSTIC 05/05/2024 9:30 AM EST Hospital Encounter Radha [facility] [address] [facility] [place] [address] 05/05/2024 10:00 AM EST Appointment [facility] [address] [place] [facility] [place] [address] 05/05/2024 3:30 PM EST Office Visit Otolaryngology/ Head & Neck/Facial Plastic Surgery [address] [place] [facility] [place] [address] Ede Vieira MD [address] [place] [facility] [place] [address] 05/19/2024 8:40 AM EST Office Visit Pulmonary Medicine, [facility] [address] [place] [address] Rigoberto Lassiter MD [address] [place] [address] 07/20/2024 3:00 PM EST Office Visit [facility] [address] [facility] [place] [address] Torri Urbano CRNP 132 [facility] [place] [address] 09/01/2024 3:30 PM EDT Procedure Only Urology, [facility] 132 [facility] [place] [address] Enrique Wall MD 27 [facility] [place] [address] 12/14/2024 3:30 PM EDT Office Visit Cardiology, [facility] 132 [facility] [place] [address] Kassandra Sam CRNP 400 [facility] [place] [address] 01/18/2025 3:00 PM EDT Office Visit [facility] [address] [facility] [place] [address] Bandra Bailon DO 132 [facility] [place] [address] Scheduled Procedures Name Priority Associated Diagnoses Date/Ti [...] this encounter Medical Devices Implanted Type Area Band Log Mill And Carriage Operator Device Identifier Shelf Expiration Date Model / Serial / Lot Graft Lyoplnt 2.5x2.5cm 1x1 - [id number] Implanted:Qty: 1 on 03/07/2022 by Valeriano Hathaway MD at OR [facility] [place] B [place] : AESCULAP [id number] 10/20/2026 [id number] / [id number] / [id number] Graft Lyoplnt 2.5x2.5cm 1x1 - [id number] Implanted:Qty: 1 on 03/07/2022 by Valeriano Hathaway MD at OR [facility] [place] B [place] : AESCULAP [id number] 10/20/2026 [id number] / [id number] / [id number] documented as of this encounter Visit Diagnoses Diagnosis Hereditary and idiopathic peripheral neuropathy Unspecified hereditary and idiopathic peripheral neuropathy Gastroesophageal reflux disease, unspecified whether esophagitis present [...] the patient have Health Care Power of Timber Robber? No * Full Code Date Activated Date [...] Directives occurred with: Not Discussed Care Teams Maintenance Helper Relationship Specialty Start Date End Date Bandar Bailon DO [address] [place] [address] PCP - General Family Medicine 10/10/20 documented as of this encounter
--- OUTSIDE RECORDS SUMMARY | 2024-05-10 05:42 | External Medical Summary | Summary of Care ---
Author Name Unknown Organization [facility] Address [address] [place] [address] Phone [phone] Care Team Providers Care Production Officer Name Role Phone BailonRuiBandartwin Garrisonpriyanka Primary Care Provider Reason for Visit * Reason Onset Date Comments Advice 04/02/2024 Encounter Details Date Type Department Care Team (Late st Contact Info) Description 04/02/2024 Telephone [facility] [place] [address] [place] [address] Specified, Neo No Resource [address] [place] [address] Advice Allergies Active Allergy Reactions Criticality Noted [...] as of this encounter (statuses as of 04/05/2024) Medications Medication Sig Dispensed Refills Start Date [...] each (=3 months supply). [facility] at [address] [place] [address], [facility] 100, [place] [address]. 1 g 09/12/2022 Active Mupirocin 2 % [...] Oral Tablet (Corgard)Indicatio ns:NSVT (nonsustained ventricular tachycardia) ([facility]) Take 1 Tablet by mouth [...] triple dose during sickness 400 Tablet 1 04/01/2024 Active Hospital, Clinic, or Other Facility Administered Medication Ordered Dose Route Frequency Start Date End Date Status Albuterol Sulfate (Proventil) (2.5 MG/3ML) 0.083% inhalation solution 2.5 mgIndications:Mild persistent asthma without complication,SOB (shortness of breath) 2.5 mg NEBULIZER Q4H PRN 05/30/2021 Act mary jo documented as of this encounter (statuses as of 04/05/2024) Active Problems Problem Noted Date Diagnosed Date [...] 03/18/2018 Overview: 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 Increased risk for Long QT Syndrome. 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 Asthma, mild persistent 04/29/2012 Overview: Allergic component ROBERT (obstructive sleep apnea) 02/01/2010 Overview: documented as of this encounter (statuses as of 04/05/2024) Resolved Problems Problem Noted Date Diagnosed Date [...] as of this encounter (statuses as of 04/05/2024) Immunizations Name Administration Dates Next Due COVID-19 mRNA, LNP-s, No Pre serve, 2-Dose Series ([employer]) 04/26/2021,10/20/2020,09/27/2020 COVID-19, MRNA-LNP, 23-24, P F, 51 [...] No 03/17/2024 Does the household have a [facility] source of income? (Household - for ages [...] encounter Miscellaneous Notes * Telephone Encounter - Denise Lynne RN - 04/05/2024 7:04 AM EDT Appears that endocrinology is trying to reach out to patient. Per Dr. Florence "If out patient surgery, take a double dose for the full day of the surgery If inpatient, take double dose the am of surgery and anesthesia can give iv stress steroid." * Telephone Encounter - Citlali Dias OSA - 04/02/2024 11:07 AM EDT [facility] Phone Call Form- Requested Information from caller: Who is calling patient Provider patient is established with: Aldo What is the concern or issue they are having: Pt having surgery on 04/06 and anesthesia dept advised him he would need to increase his hydrocodone? Currently takes 3 in AM and 1 in PM How long has the issue been going on: Any additional details to add: Phone number for nurse to call back: [phone] documented in this encounter Plan of Treatment Upcoming Encounters Date Type Department Care Team (Latest Contact Info) Description 04/06/2024 9:59 AM EDT Hospital Encounter OR [facility], Operating Room [facility] [address] [place] [address] Khalif Wall MD [address] [place] [address] 04/06/2024 9:59 AM EDT - 04/06/2024 11:32 AM EDT Surgery OR [facility], Operating Room [facility] [address] [place] [address] Khalif Wall MD [address] [place] [address] REPAIR INITIAL INGUINAL HERNIA REDUCIBLE AGE 5 OR MORE 04/08/2024 10:00 AM EDT Scheduled Telephone General Surgery, [facility] [address] [place] [address] Nurse Adolfo Gen Surg [facility] [address] [place] [address] 04/21/2024 1:15 PM EDT Office Visit General Surgery, [facility] [address] [place] [address] Khalif Wall MD [address] [place] [address] 04/28/2024 9:00 AM EST Hospital Encounter ENDO [facility], Endoscopy Room [facility] [address] [place] [address] Delta Rodriguez MD [address] [place] [address] 04/28/2024 9:00 AM EST - 04/28/2024 9:30 AM EST Surgery ENDO OSS, Endoscopy Room O[facility] [address] [place], [place] [address] Delta Rodriguez MD [address] [place] [address] ESOPHAGOGASTRODUODENOSCOPY (EGD), FLEXIBLE, TRANSORAL, DIAGNOSTIC 05/05/2024 9:30 AM EST Hospital Encounter [facility] [address] [place] [address] 05/05/2024 10:00 AM EST Appointment [facility] [address] [place] [address] 05/05/2024 3:30 PM EST Office Visit Otolaryngology/ Head & Neck/Facial Plastic Surgery [address] [place] [address] Ede Vieira MD [address] [place] [address] 05/12/2024 8:40 AM EST Office Visit Pulmonary Medicine, [facility] 132 [facility] [place] [address] Rigoberto Lassiter MD [address] [facility] [address] 07/20/2024 3:00 PM EST Office Visit Family Practice [facility] 132 [facility] [place] [address] Torri Urbano CRNP [address] [place] [address] 09/01/2024 3:30 PM EDT Procedure Only Urology, [facility] 132 [facility] [place] [address] Enrique Wall MD [address] [place] [address] 12/14/2024 3:30 PM EDT Office Visit Cardiology, [facility] 132 [facility] [place] [address] Kassandra Sam CRNP 400 [facility] [place] [address] 01/18/2025 3:00 PM EDT Office Visit Family Practice [facility] 132 [facility] [place] [address] Bandar Bailon, 132 [facility] [place] [address] Scheduled Procedures Name Priority Associated Diagnoses Date/Ti me REPAIR INITIAL INGUINAL RUBIN IA REDUCIBLE AGE 5 OR MORE Left inguinal hernia 04/06/2024 9:59 AM EDT ESOPHAGOGASTRODUODENOSCOPY ( EGD), FLEXIBLE, TRANSORAL, DIAGNOSTIC [...] this encounter Medical Devices Implanted Type Area Systems Manager Device Identifier Shelf Expiration Date Model / Serial / Lot Graft Lyoplnt 2.5x2.5cm 1x1 - [id number] Implanted:Qty: 1 on 03/07/2022 by Valeriano Hathaway MD at [place] [facility] [place] : AESCULAP [id number] 10/20/2026 [id number] / [id number] / [id number] Graft Lyoplnt 2.5x2.5cm 1x1 - [id number] Implanted:Qty: 1 on 03/07/2022 by Valeriano Hathaway MD at OR [facility] [place] : AESCULAP [id number] 10/20/2026 [id number] / [id number] / [id number] documented as of this encounter Advance Directives * Full Code (Latest Code Status on File) Date Activated Date Inactivated Comments 03/07/2022 2:13 PM 03/12/2022 2:17 PM This order r eflects the patients wishes and were consensually agreed upon. Question Answer Comments Discussion of Advance Direct cornelius occurred with: Not Discussed due to patient's condition Does the patient have a Living Will? No Does the patient have Health Care Power of Electronics Parts Sales Representative? No * Full Code Date Activated Date [...] Directives occurred with: Not Discussed Care Teams Production Officer Relationship Specialty Start Date End Date Bandar Bailon DO [address] [place] [address] PCP - General Family Medicine 10/10/20 documented as of this encounter
--- OUTSIDE RECORDS SUMMARY | 2024-05-10 05:42 | External Medical Summary | Summary of Care ---
Author Name Unknown Organization [facility] Address [address] [facility] [place] [address] Phone [phone] Care Team Providers Care District Operations Manager Name Role Phone Bandar Bailon DO Primary Care Provider Reason for Visit * Reason Onset Date Comments Order Request 03/09/2024 Pt calling to delgado ve orders faxed for MRI T Spine to be sent to [facility] Encounter Details Date Type Department Care Team (Late st Contact Info) Description 03/09/2024 Telephone [facility], [facility] [address] [place] [address] Arik Santana DO [address] [place] [address] Order Request (Pt calling to have orders f... Allergies Active Allergy Reactions Criticality Noted Date Comments Sulfamethoxazole-Trimet hoprim Itching 07/16/2021 Pt noted total body itching within one hour of first dose. Took benedryl and inhaler and stopped med. Codeine Other (Please comment) Medium 04/23/2017 Allergic reaction Other reaction(s): UNSURE REACTION - HAPPENED A CHILD Sulfa Antibiotics High 05/22/2022 Other reaction(s): Swelling of Lip/Tongue/Throat documented as of this encounter (statuses as of 04/19/2024) Medications Medication Sig Dispensed Refills Start Date [...] each (=3 months supply). [facility] at [address] [place] [address], [address], [place] [address]. 1 g 3 Active Mupirocin 2 % [...] (Corgard)Indicatio ns:NSVT (nonsustained ventricular tachycardia) ([facility]) Take 1 Tablet by mouth [...] mouth daily. 90 Tablet 1 4 Active Hydrocortisone 5 MG [...] bedtime. With food.. 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 Increased risk for Long QT Syndrome. 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 Asthma, mild persistent 04/29/2012 Overview: Allergic component ROBERT (obstructive sleep apnea) 02/01/2010 Overview: documented as of this encounter (statuses as of 04/19/2024) Resolved Problems Problem Noted Date Diagnosed Date [...] as of this encounter (statuses as of 04/19/2024) Immunizations Name Administration Dates Next Due COVID-19 mRNA, LNP-s, No Pre serve, 2-Dose Series ([employer]) 04/26/2021,10/20/2020,09/27/2020 COVID-19, MRNA-LNP, 23-24, P F, 51 [...] encounter Miscellaneous Notes * Telephone Encounter - Kassandra Arreola LPN - 03/11/2024 11:44 AM EDT Order faxed. Note sent to push images and report once completed * Telephone Encounter - Kim Collins OSA - 03/09/2024 11:32 AM EDT Pt calling to have orders faxed for MRI T Spine WO Contrast to be sent to [facility] for closer location to the pt. Thank you, Radiology Scheduling documented in this encounter Plan of Treatment Upcoming Encounters Date Type Department Care Team (Latest Contact Info) Description 04/21/2024 1:15 PM EDT Office Visit General Surgery, [facility] [address] [place] [address] Khalif Wall MD [address] [place] [address] 04/28/2024 9:00 AM EST Hospital Encounter ENDO [facility], Endoscopy Room [facility] [address] [place] [address] Delta Rodriguez MD [address] [place] [address] 04/28/2024 9:00 AM EST - 04/28/2024 9:30 AM EST Surgery ENDO [facility], Endoscopy Room [facility] [address] [place] [address] Delta Rodriguez MD [address] [place] [address] ESOPHAGOGASTRODUODENOSCOPY (EGD), FLEXIBLE, TRANSORAL, DIAGNOSTIC 05/05/2024 9:30 AM EST Hospital Encounter Radha [facility] [address] [place] [facility] [place] [address] 05/05/2024 10:00 AM EST Appointment [facility] [address] [place] [facility] [place] [address] 05/05/2024 3:30 PM EST Office Visit Otolaryngology/ Head & Neck/Facial Plastic Surgery [address] [place] [facility] [place] [address] Ede Vieira MD [address] [facility] [place] [address] 05/19/2024 8:40 AM EST Office Visit Pulmonary Medicine, [facility] 132 [place] [address] Rigoberto Lassiter MD [address] [place] [address] 07/20/2024 3:00 PM EST Office Visit [facility] 132 [facility] [place] [address] Torri Urbano CRNP 132 [facility] [place] [address] 09/01/2024 3:30 PM EDT Procedure Only Urology, [facility] 132 [facility] [place] [address] Enrique Wall MD 27 [facility] [place] [address] 12/14/2024 3:30 PM EDT Office Visit Cardiology, [facility] 132 [facility] [place] [address] Kassandra Sam CRNP 400 [facility] [place] [address] 01/18/2025 3:00 PM EDT Office Visit [facility] 132 [facility] [place] [address] Bandar Bailon DO 132 [facility] [place] [address] Scheduled Procedures Name Priority Associated Diagnoses Date/Ti [...] encounter Medical Devices Implanted Type Area Director Of Community Life Device Identifier Shelf Expiration Date Model / Serial / Lot Graft Lyoplnt 2.5x2.5cm 1x1 - [id number] Implanted:Qty: 1 on 03/07/2022 by Valeriano Hathaway MD at OR [facility] [place] [place] : ABBEY [id number] 10/20/2026 [id number] / [id number] / [id number] Graft Lyoplnt 2.5x2.5cm 1x1 - [id number] Implanted:Qty: 1 on 03/07/2022 by Valeriano Hathaway MD at [place] [facility] [place] [place] KIRKP[place]RICK : [id number] 10/20/2026 [id number] / [id number] / [id number] documented as of this encounter Advance Directives [...] the patient have Health Care Power of On Call? No * Full Code Date Activated Date [...] occurred with: Not Discussed Care Teams District Operations Manager Relationship Specialty Start Date End Date Bandar Bailon DO [address] [place] [address] PCP - General Family Medicine 10/10/20 documented as of this encounter
--- OUTSIDE RECORDS SUMMARY | 2024-05-10 05:42 | External Medical Summary | Summary of Care ---
Author Name Unknown Organization [facility] Address [address] [facility] [place] [address] Phone [phone] Care Team Providers Care Cryogenics Engineer Name Role Phone Bandar Bailon DO Primary Care Provider Encounter Details Date Type Department Care Team (Late st Contact Info) Description 04/12/2024 Orders Only Pulmonary Medicine, [facility] [address] [facility] [place] [address] Rigoberto Lassiter MD [address] [place] [address] Chronic respiratory failure with hypoxia (HCC)* Allergies Active Allergy Reactions Criticality Noted Date [...] each (=3 months supply). [facility] at [address] [place] [address], [facility] 100, [place] [address]. 1 g 09/12/2022 Active Mupirocin 2 % [...] Oral Tablet (Corgard)Indicatio ns:NSVT (nonsustained ventricular tachycardia) (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 Increased risk for Long QT Syndrome. Cardiac [...] mRNA, LNP-s, No Pre serve, 2-Dose Series ([employer]) 04/26/2021,10/20/2020,09/27/2020 COVID-19, MRNA-LNP, 23-24, P F, 51 [...] 03/17/2024 Does the household have a re gular [...] No 03/17/2024 Are you (or your family) venakt eless or worried that you might be [...] 1:15 PM EDT Office Visit General Surgery, [facility] [address] [place] [address] Khalif Wall MD [address] [place] [address] 04/28/2024 9:00 AM EST Hospital Encounter ENDO [facility], Endoscopy Room [facility] [address] [place] [phone] Delta Rodriguez MD [address] [place] [address] 04/28/2024 9:00 AM EST - 04/28/2024 9:30 AM EST Surgery ENDO [facility], Endoscopy Room [facility] [address] [phone] Delta Rodriguez MD [address] [place] [address] ESOPHAGOGASTRODUODENOSCOPY (EGD), FLEXIBLE, TRANSORAL, DIAGNOSTIC 05/05/2024 9:30 AM EST Hospital Encounter [facility] [address] [place] [address] 05/05/2024 10:00 AM EST Appointment [facility] [address] [place] [address] 05/05/2024 3:30 PM EST Office Visit Otolaryngology/ Head & Neck/Facial Plastic Surgery [address] [place] [address] Ede Vieira MD [address] [place] [address] 05/19/2024 8:40 AM EST Office Visit Pulmonary Medicine, [facility] [address] [place] [address] Rigoberto Lassiter MD [address] [place] [address] 07/20/2024 3:00 PM EST Office Visit Family Practice [facility] [address] [place] [address] Torri Urbano CRNP [address] [place] [address] 09/01/2024 3:30 PM EDT Procedure Only Urology, [facility] [address] [address] Enrique Wall MD [address] [place] [id number] 12/14/2024 3:30 PM EDT Office Visit Cardiology, [facility] 132 [facility] [place] [address] Kassandra Sam CRNP [address] [place] [address] 01/18/2025 3:00 PM EDT Office Visit Family Practice [facility] 132 [facility] [place] [address] Bandar Bailon DO 132 [facility] [place] [address] Scheduled Procedures Name Priority Associated Diagnoses Date/Ti [...] this encounter Medical Devices Implanted Type Area Python Programmer Device Identifier Shelf Expiration Date Model / Serial / Lot Graft Lyoplnt 2.5x2.5cm 1x1 - [id number] Implanted:Qty: 1 on 03/07/2022 by Valeriano Hathaway MD at OR [facility] B [place] : AESCULAP [id number] 10/20/2026 [id number] / [id number] / [id number] Graft Lyoplnt 2.5x2.5cm 1x1 - [id number] Implanted:Qty: 1 on 03/07/2022 by Valeriano Hathaway MD at OR [facility] B [place] : AESCULAP [id number] 10/20/2026 [id number] / [id number] / [id number] documented as of this encounter Visit Diagnoses Diagnosis Chronic respiratory failure with hypoxia (HCC)- Primary Chronic respiratory failure Gastroesophageal reflux disease, unspecified whether esophagitis present [...] the patient have Health Care Power of Cloud Engagement Partner? No * Full Code Date Activated Date [...] Directives occurred with: Not Discussed Care Teams Cryogenics Engineer Relationship Specialty Start Date End Date Bandar Bailon DO [address] [place] [address] PCP - General Family Medicine 10/10/20 documented as of this encounter
--- OUTSIDE RECORDS SUMMARY | 2024-05-10 05:42 | External Medical Summary | Summary of Care ---
Author Name Unknown Organization [facility] Address [address] [facility] [place] [address] Phone [phone] Care Team Providers Care Compensator Worker Name Role Phone Bandar Bailon DO Primary Care Provider Reason for Visit * Reason Comments Medication Refill Encounter Details Date Type Department Care Team (Late st Contact Info) Description 04/01/2024 Refill Family Practice [facility] [address] [place] [address] Kassandra Medel DO [address] [place] [address] Lumbar degenerative disc disease; Lumbar radiculopathy Allergies Active Allergy Reactions Criticality Noted Date Comments Sulfamethoxazole-Trimet hoprim Itching 07/16/2021 Pt noted total body itching within one hour of first dose. Took benedryl and inhaler and stopped med. Codeine Other (Please comment) Medium 04/23/2017 Allergic reaction Other reaction(s): UNSURE REACTION - HAPPENED A CHILD Sulfa Antibiotics High 05/22/2022 Other reaction(s): Swelling of Lip/Tongue/Throat documented as of this encounter (statuses as of 04/02/2024) Medications Medication Sig Dispensed Refills Start Date [...] each (=3 months supply). [facility] at [address] [place] [address], [place] [address], [place] [address]. 1 g 3 Active Mupirocin 2 % [...] Oral Tablet (Corgard)Indicatio ns:NSVT (nonsustained ventricular tachycardia) ([facility]) Take 1 Tablet by mouth in [...] during sickness 400 Tablet 1 4 Active Diclofenac Sodium 50 MG Oral Tablet Delayed Release (Voltaren)Indicati ons:Lumbar degenerative disc disease,Lumbar radiculopathy Take 1 Tablet by mouth in the morning and 1 Tablet before bedtime. With food.. 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 Increased risk for Long QT Syndrome. 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 Asthma, mild persistent 04/29/2012 Overview: Allergic component ROBERT (obstructive sleep apnea) 02/01/2010 Overview: documented as of this encounter (statuses as of 04/02/2024) Resolved Problems Problem Noted Date Diagnosed Date [...] as of this encounter (statuses as of 04/02/2024) Immunizations Name Administration Dates Next Due COVID-19 mRNA, LNP-s, No Pre serve, 2-Dose Series ([employer]) 04/26/2021,10/20/2020,09/27/2020 COVID-19, MRNA-LNP, 23-24, P F, 51 [...] encounter Miscellaneous Notes * Telephone Encounter - Robb Nieto, [facility] - 04/02/2024 2:54 PM EDTSigned Prescriptions: Disp Refills Diclofenac Sodium 50 MG Oral Tablet Delaye*180 Ta*1 Sig: Take 1 Tablet by mouth in the morning and 1 Tablet before bedtime. With food.. Authorizing Provider: KASSANDRA MEDEL Ordering User: ROBB NIETO * Telephone Encounter - Leah Colón CPhT - 04/02/2024 10:42 AM EDT Did you pend patient's preferred pharmacy and medication before forwarding?yes Pharmacy: [facility] Pending Prescriptions: Disp Refills Diclofenac Sodium 50 MG Oral Tablet Delay*180 Ta*0 Sig: Take 1 Tablet by mouth in the morning and 1 Tablet before bedtime. With food.. Last Visit: 02/26/2024 (in office), 11/19/2019 (telemedicine) Next Visit: 07/20/2024 If no future appointments scheduled, and last appointment is greater than a year ago, please schedule patient for a follow-up appointment Last date the medication was ordered: 04/08/23 Is this request for a controlled substance?No Urine Drug Screen:No results found. However, due [...] [facility], Operating Room [facility] [address] [place] [address] Khalif Wall MD [address] [place] [address] 04/06/2024 9:59 AM EDT - 04/06/2024 11:32 AM EDT Surgery OR [facility], Operating Room [facility] [address] [place] [address] Khalif Wall MD [address] [place] [address] REPAIR INITIAL INGUINAL HERNIA REDUCIBLE AGE 5 OR MORE 04/08/2024 10:00 AM EDT Scheduled Telephone General Surgery, [facility] [address] [place] [address] [facility]urse Gen Surg [facility] [address] [place] [address] 04/21/2024 1:15 PM EDT Office Visit General Surgery, [facility] [address] [place] [address] Khalif Wall MD [address] [place] [address] 04/28/2024 9:00 AM EST Hospital Encounter ENDO [facility], Endoscopy Room [facility] [address] [place] [phone] Delta Rodriguez MD [address] [place] [address] 04/28/2024 9:00 AM EST - 04/28/2024 9:30 AM EST Surgery ENDO [facility], Endoscopy Room [facility] [address] [place] [address] Delta Rodriguez MD 132 [facility] [place] [address] ESOPHAGOGASTRODUODENOSCOPY (EGD), FLEXIBLE, TRANSORAL, DIAGNOSTIC 05/05/2024 9:30 AM EST Hospital Encounter [facility] [address] [place] [address] 05/05/2024 10:45 AM EST Appointment [facility] [address] [place] [address] 05/05/2024 3:30 PM EST Office Visit Otolaryngology/ Head & Neck/Facial Plastic Surgery [address] [place] [address] Ede Vieira MD [address] [place] [address] 05/12/2024 8:40 AM EST Office Visit Pulmonary Medicine, [facility] 132 [employer] [place] [address] Rigoberto Lassiter MD [address] [place] [address] 07/20/2024 3:00 PM EST Office Visit Family Practice [facility] [address] [employer] [place] [address] Torri Urbano CRNP 132 [facility] [place] [address] 09/01/2024 3:30 PM EDT Procedure Only Urology, [facility] 132 [facility] [place] [address] Enrique Wall MD [address] [place] [address] 12/14/2024 3:30 PM EDT Office Visit Cardiology, [facility] [address] [place] [address] Kassandra Sam CRNP [address] [place] [address] 01/18/2025 3:00 PM EDT Office Visit Family Practice [facility] [address] [place] [address] Bandar Bailon, [address] [place] [address] Scheduled Procedures Name Priority Associated Diagnoses Date/Ti [...] this encounter Medical Devices Implanted Type Area Rn Circulating Device Identifier Shelf Expiration Date Model / Serial / Lot Graft Lyoplnt 2.5x2.5cm 1x1 - [id number] Implanted:Qty: 1 on 03/07/2022 by Valeriano Hathaway MD at OR [facility] [place] : AESRAJAN [id number] 10/20/2026 [id number] / [id number] / [id number] Graft Lyoplnt 2.5x2.5cm 1x1 - [id number] Implanted:Qty: 1 on 03/07/2022 by Valeriano Hathaway MD at OR [facility] [place] : AESCULAP [id number] 10/20/2026 [id number] / [id number] / [id number] documented as of this encounter Visit Diagnoses Diagnosis Left inguinal hernia- Primary Inguinal hernia without mention of obstruction or gangrene, unilateral or unspecified, (not specified as recurrent) Lumbar degenerative disc disease Degeneration of lumbar or lumbosacral intervertebral disc Lumbar radiculopathy Thoracic or lumbosacral neuritis or radiculitis, unspecified Left inguinal hernia Inguinal hernia without [...] the patient have Health Care Power of Tree Thinner? No * Full Code Date Activated Date [...] Directives occurred with: Not Discussed Care Teams Compensator Worker Relationship Specialty Start Date End Date Bandar Bailon DO [address] [place] [address] PCP - General Family Medicine 10/10/20 documented as of this encounter
--- OUTSIDE RECORDS SUMMARY | 2024-05-10 05:43 | External Medical Summary | Summary of Care ---
Author Name Unknown Organization [facility] Address [address] [place] [place] [address] Phone [phone] Care Team Providers Care Dining Car Waiter/Waitress Name Role Phone Dharmesh Bailonjayla Garrisonpriyanka Primary Care Provider Reason for Visit * Reason Comments Medication Refill Encounter Details Date Type Department Care Team (Late st Contact Info) Description 04/01/2024 Refill [facility] [place] [address] [place] [address] Cici Gusman MD [address] [place] [address] Allergies Active Allergy Reactions Criticality [...] as of this encounter (statuses as of 04/01/2024) Medications Medication Sig Dispensed Refills Start Date [...] each (=3 months supply). [facility] at [address] [place] [address], [facility] 100, [place] [id number]. 1 g 3 Active Mupirocin 2 % [...] the morning. 90 Tablet 3 3 Active Diclofenac Sodium 50 MG Oral Tablet Delayed Release (Voltaren)Indicati ons:Lumbar degenerative disc disease,Lumbar radiculopathy Take 1 Tablet by mouth in the morning and 1 Tablet before bedtime. With food.. 180 Tablet 3 Active Dicyclomine HCl 10 MG Oral [...] Oral Tablet (Corgard)Indicatio ns:NSVT (nonsustained ventricular tachycardia) ([facility]) Take 1 Tablet by mouth in the [...] during sickness 400 Tablet 1 4 Active Hydrocortisone 5 MG Oral Tablet (Cortef) take 2 tablets in the morning , 1 tablet at lunch and 1 tablet at supper, double or triple dose during sickness 400 Tablet 1 3 04/01/20 24 Discontinu ed(Refill) Hospital, Clinic, or Other Facility Administered Medication Ordered Dose Route Frequency Start Date End Date Status Albuterol Sulfate (Proventil) (2.5 MG/3ML) 0.083% inhalation solution 2.5 mgIndications:Mild persistent asthma without complication,SOB (shortness of breath) 2.5 mg NEBULIZER Q4H PRN 05/30/2021 Act mary jo documented as of this encounter (statuses as of 04/01/2024) Active Problems Problem Noted Date Diagnosed Date [...] 03/18/2018 Overview: 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 Increased risk for Long QT Syndrome. 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 Asthma, mild persistent 04/29/2012 Overview: Allergic component ROBERT (obstructive sleep apnea) 02/01/2010 Overview: documented as of this encounter (statuses as of 04/01/2024) Resolved Problems Problem Noted Date Diagnosed Date [...] as of this encounter (statuses as of 04/01/2024) Immunizations Name Administration Dates Next Due COVID-19 mRNA, LNP-s, No Pre serve, 2-Dose Series ([employer]) 04/26/2021,10/20/2020,09/27/2020 COVID-19, MRNA-LNP, 23-24, P F, 51 [...] encounter Miscellaneous Notes * Telephone Encounter - Cici Gusman MD - 04/01/2024 12:21 PM EDT Signed Prescriptions: Disp Refills Hydrocortisone 5 MG Oral Tablet (Cortef) 400 Ta*1 Sig: take 2 tablets in the morning , 1 tablet at lunch and 1 tablet at supper, double or triple dose during sicknessAuthorizing Provider: CICI GUSMAN documented in this encounter Plan of Treatment Upcoming Encounters Date Type Department Care Team (Latest Contact Info) Description 04/06/2024 9:59 AM EDT Hospital Encounter OR [facility], Operating Room [facility] [address] [place] [address] Khalif Wall MD [address] [place] [address] 04/06/2024 9:59 AM EDT - 04/06/2024 11:32 AM EDT Surgery OR [facility], Operating Room [facility] [address] [place] [address] Khalif Wall MD [address] [place] [address] REPAIR INITIAL INGUINAL HERNIA REDUCIBLE AGE 5 OR MORE 04/08/2024 10:00 AM EDT Scheduled Telephone General Surgery, [facility] [address] [place] [address] Nurse Adolfo Gen Surg [facility] [address] [place] [address] 04/21/2024 1:15 PM EDT Office Visit General Surgery, [facility] [address] [place] [address] Khalif Wall MD [address] [place] [address] 04/28/2024 9:00 AM EST Hospital Encounter ENDO [facility], Endoscopy Room [facility] [address] [place] [address] Delta Rodriguez MD [address] [place] [address] 04/28/2024 9:00 AM EST - 04/28/2024 9:30 AM EST Surgery ENDO [facility], Endoscopy Room [facility] [address] [place] [phone] Delta Rodriguez MD [address] [place] [address] ESOPHAGOGASTRODUODENOSCOPY (EGD), FLEXIBLE, TRANSORAL, DIAGNOSTIC 05/05/2024 9:30 AM EST Hospital Encounter [place] [address] [place] [address] 05/05/2024 10:45 AM EST Appointment [place] [address] [place] [address] 05/05/2024 3:30 PM EST Office Visit Otolaryngology/ Head & Neck/Facial Plastic Surgery [address] [place] [address] Ede Vieira MD [address] [place] [address] 05/12/2024 8:40 AM EST Office Visit Pulmonary Medicine, [facility] [address] [facility] [place] [address] Rigoberto Lassiter MD [address] [facility] [place] [address] 07/20/2024 3:00 PM EST Office Visit Family Practice [facility] [address] [facility] [place] [address] Torri Urbano CRNP [address] [place] [address] 09/01/2024 3:30 PM EDT Procedure Only Urology, [facility] [address] [place] [address] Enrique Wall MD [address] [place] [address] 12/14/2024 3:30 PM EDT Office Visit Cardiology, [facility] [address] [facility] [place] [address] Kassandra Sam CRNP [address] [place] [address] 01/18/2025 3:00 PM EDT Office Visit Family Practice [facility] [address] [facility] [place] [address] Bandar Bailon DO [address] [place] [address] Scheduled Procedures Name Priority Associated Diagnoses Date/Ti [...] this encounter Medical Devices Implanted Type Area Bobbin Doffer Device Identifier Shelf Expiration Date Model / Serial / Lot Graft Lyoplnt 2.5x2.5cm 1x1 - [id number] Implanted:Qty: 1 on 03/07/2022 by Valeriano Hathaway MD at OR [facility] B [place] : ABBEY [id number] 10/20/2026 [id number] / [id number] / [id number] Graft Lyoplnt 2.5x2.5cm 1x1 - [id number] Implanted:Qty: 1 on 03/07/2022 by Valeriano Hathaway MD at OR [facility] B [place] : AESCULAP [id number] 10/20/2026 [id number] / [id number] / [id number] documented as of this encounter Advance Directives [...] the patient have Health Care Power of Side Hemmer? No * Full Code Date Activated Date [...] Directives occurred with: Not Discussed Care Teams Dining Car Waiter/Waitress Relationship Specialty Start Date End Date Bandar Bailon DO [address] [place] [address] PCP - General Family Medicine 10/10/20 documented as of this encounter
--- OUTSIDE RECORDS SUMMARY | 2024-05-10 05:43 | External Medical Summary | Summary of Care ---
Author Name Unknown Organization [facility] Address [address] [place] [address] Phone [phone] Care Team Providers Care Api Product Manager Name Role Phone Uvaldo Bandar Li DO Primary Care Provider Reason for Visit * Reason Onset Date Comments Appointment 03/22/2024 Encounter Details Date Type Department Care Team (Late st Contact Info) Description 03/22/2024 Telephone [facility] [place] [address] [place] [address] Caitlin Morrell PsyD [address] [place] [address] Appointment Allergies Active Allergy Reactions Criticality Noted [...] as of this encounter (statuses as of 03/23/2024) Medications Medication Sig Dispensed Refills Start Date [...] each (=3 months supply). [facility] at [address] [place] [address], [place] [id number]. 1 g 09/12/2022 Active Mupirocin 2 % [...] at bedtime. 90 Tablet 3 03/13/2023 Active Hydrocortisone 5 MG Oral Tablet (Cortef) take 2 tablets in the morning , 1 tablet at lunch and 1 tablet at supper, double or triple dose during sickness 400 Tablet 1 03/14/2023 Active Additional Information Patient taking differently: take 3 tablets in the morning , 1 tablet at lunch, double or triple dose during sickness, Reported on 03/15/2024 Vitamin D3 20 MCG (800 UNIT) Oral Tablet Take 1capsule by mouth in the morning. 90 Tablet 3 04/08/2023 Active Diclofenac Sodium 50 MG Oral Tablet Delayed Release (Voltaren)Indicati ons:Lumbar degenerative disc disease,Lumbar radiculopathy Take 1 Tablet by mouth in the morning and 1 Tablet before bedtime. With food.. 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 Increased risk for Long QT Syndrome. 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 Asthma, mild persistent 04/29/2012 Overview: Allergic component ROBERT (obstructive sleep apnea) 02/01/2010 Overview: documented as of this encounter (statuses as of 03/23/2024) Resolved Problems Problem Noted Date Diagnosed Date [...] as of this encounter (statuses as of 03/23/2024) Immunizations Name Administration Dates Next Due COVID-19 mRNA, LNP-s, No Pre serve, 2-Dose Series ([employer]) 04/26/2021,10/20/2020,09/27/2020 COVID-19, MRNA-LNP, 23-24, P F, 50 MCG/0.5 mL, 12 YRS AND ABOVE, IM (MODERNA-Spikevax) 05/31/2023 Covid-19, Mrna, Lnp-s, Pf, B ivalent, 50 Mcg, IM, 12 yrs and above (Moderna) 11/04/2022 Pneumococcal Conjugate Vacc, 13 Valent (Prevnar) 03/20/2016 Pneumococcal Polysaccharide PPV23 (Pneumovax) 05/16/2021,05/28/2013 RSV Vac., Recomb, Adjuvant, PF,0.5 Ml (Arexvy) 05/31/2023 Season Influenza, Quad, PF, Adjuvanted, 65+ Yrs, IM (FLUAD) 02/07/2020 Seasonal Influenza, High Dos e, Trivalent, PF, IM (Fluzone HD) 03/15/2024 Seasonal Influenza, PF, 6 M & above, IM , (FluLaval or Fluzone) 05/16/2021,04/28/2017 Seasonal Influenza, Quadriva lent Hd (Fluzone Hd) 02/26/2022 Seasonal Influenza, Quadriva lent, No Preserve, IM 04/03/2023,03/20/2019,03/04/2018,03/20 Seasonal Influenza, Trivalen t, (IIV3), with Preserv, (Fluzone) 02/21/2015,09/14/2014,03/18/2013,05/13,04/23/2010 TDAP (age 10 and older)(Boostrix) 12/17/2019 TDAP, [...] No 03/17/2024 Does the household have a [facility] source of income? (Household [...] encounter Miscellaneous Notes * Telephone Encounter - Ebenezer River OSA - 03/23/2024 9:05 AM EDT Pt returned call, agreeable to join next round. Start date of 05/12/24. Pt added to roster. * Telephone Encounter - Ebenezer River OSA - 03/22/2024 11:54 AM EDT Pt referred to CBT Pain group by Caitlin Morrell. Called pt to offer group. VM full. MyG sent documented in this encounter Plan of Treatment Upcoming Encounters Date Type Department Care Team (Latest Contact Info) Description 04/06/2024 10:14 AM EDT Hospital Encounter [facility], Operating Room [facility] [address] [place] [address] Khalif Wall MD [address] [place] [address] 04/06/2024 10:14 AM EDT - 04/06/2024 11:47 AM EDT Surgery [facility], Operating Room [facility] [address] [place] [address] Khalif Wall MD [address] [place] [address] REPAIR INITIAL INGUINAL HERNIA REDUCIBLE AGE 5 OR MORE 04/21/2024 1:15 PM EDT Office Visit General Surgery, [facility] [address] [place] [address] Khalif Wall MD [address] [place] [address] 04/28/2024 9:00 AM EST Hospital Encounter ENDO [facility], Endoscopy Room [facility] [address] [place] [address] Delta Rodriguez MD [address] [place] [address] 04/28/2024 9:00 AM EST - 04/28/2024 9:30 AM EST Surgery ENDO [facility], Endoscopy Room [facility] [address] [place] [address] Delta Rodriguez MD [address] [place] [address] ESOPHAGOGASTRODUODENOSCOPY (EGD), FLEXIBLE, TRANSORAL, DIAGNOSTIC 05/05/2024 3:30 PM EST Office Visit Otolaryngology/H ead & Neck/Facial Plastic Surgery [address] [place] [facility] [place] [address] Ede Vieira MD [address] [place] [place] [address] 05/12/2024 8:40 AM EST Office Visit Pulmonary Medicine, [facility] [address] [facility] [place] [address] Rigoberto Lassiter MD [address] [place] [address] 07/20/2024 3:00 PM EST Office Visit [facility] [address] [facility] [place] [address] Torri Urbano CRNP [address] [facility] [place] [address] 09/01/2024 3:30 PM EDT Procedure Only Urology, [facility] [address] [facility] [place] [address] Enrique Wall MD [address] [facility] [place] [address] 12/14/2024 3:30 PM EDT Office Visit Cardiology, [facility] [address] [facility] [place] [address] Kassandra Sam CRNP [address] [place] [address] 01/18/2025 3:00 PM EDT Office Visit [facility] [address] [facility] [place] [address] Bandar Bailon, DO [address] [place] [address] Scheduled Procedures Name Priority Associated Diagnoses Date/Ti me REPAIR INITIAL INGUINAL RUBIN IA REDUCIBLE AGE 5 OR MORE Left inguinal hernia 04/06/2024 10:14 AM EDT ESOPHAGOGASTRODUODENOSCOPY ( EGD), FLEXIBLE, TRANSORAL, [...] this encounter Medical Devices Implanted Type Area Engineering Technical Specialist Device Identifier Shelf Expiration Date Model / Serial / Lot Graft Lyoplnt 2.5x2.5cm 1x1 - [id number] Implanted:Qty: 1 on 03/07/2022 by Valeriano Hathaway MD at OR [facility] B [place]ICK : AESCULAP [id number] 10/20/2026 [id number] / [id number] / [id number] Graft Lyoplnt 2.5x2.5cm 1x1 - [id number] Implanted:Qty: 1 on 03/07/2022 by Valeriano Hathaway MD at OR [facility] B [place] : AESCULAP [id number] 10/20/2026 [id number] / [id number] / [id number] documented as of this encounter Advance Directives [...] the patient have Health Care Power of Sql Server Architect? No * Full Code Date Activated Date [...] Directives occurred with: Not Discussed Care Teams Api Product Manager Relationship Specialty Start Date End Date Bandar Bailon DO [address] [place] [address] PCP - General Family Medicine 10/10/20 documented as of this encounter
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
--- OUTSIDE RECORDS SUMMARY | 2024-05-10 05:43 | External Medical Summary | Summary of Care ---
Author Name Unknown Organization [facility] Address [address] [place] [address] Phone [phone] Care Team Providers Care Shoeshiner Name Role Phone Bandar Bailon Primary Care Provider Reason for Visit * Reason Onset Date Comments Advice 04/01/2024 Hydrocortisone 5 MG Oral Tablet (Cortef) Encounter Details Date Type Department Care Team (Late st Contact Info) Description 04/01/2024 Telephone Endocrinology, [place] [address] [place] [address] Cici Gusman MD [address] [place] [address] Advice (Hydrocortisone 5 MG Oral [...] each (=3 months supply). [facility] at [address] [place] [address], [place] [address], [place] [address]. 1 g 09/12/2022 Active Mupirocin 2 % [...] Oral Tablet (Corgard)Indicatio ns:NSVT (nonsustained ventricular tachycardia) ([facility]) Take 1 Tablet by mouth [...] mouth daily. 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 Increased risk for Long QT Syndrome. Cardiac [...] mRNA, LNP-s, No Pre serve, 2-Dose Series ([employer]) 04/26/2021,10/20/2020,09/27/2020 COVID-19, MRNA-LNP, 23-24, P F, 50 [...] encounter Miscellaneous Notes * Telephone Encounter - Aga Stuart LPN [...] Please advise and reach out to patient. [phone] Thank you, Donna Du Pilot Control Operator Helper [facility] 04/01/2024,11:16 AM documented in this encounter Plan of Treatment Upcoming Encounters Date Type Department Care Team (Latest Contact Info) Description 04/06/2024 9:59 AM EDT Hospital Encounter OR [facility], Operating Room [facility] [address] [place] [phone] Khalif Wall MD [address] [place] [address] 04/06/2024 9:59 AM EDT - 04/06/2024 11:32 AM EDT Surgery OR [facility], Operating Room [facility] [address] [place] [phone] Khalif Wall MD [address] [place] [address] REPAIR INITIAL INGUINAL HERNIA REDUCIBLE AGE 5 OR MORE 04/08/2024 10:00 AM EDT Scheduled Telephone General Surgery, [facility] [address] [place] [address] Nurse Adolfo Gen Surg [facility] [address] [place] [address] 04/21/2024 1:15 PM EDT Office Visit General Surgery, [facility] [address] [place] [address] Khalif Wall MD [address] [place] [address] 04/28/2024 9:00 AM EST Hospital Encounter ENDO [facility], Endoscopy Room [facility] [address] [place] [address] Delta Rodriguez MD [address] [place] [address] 04/28/2024 9:00 AM EST - 04/28/2024 9:30 AM EST Surgery ENDO [facility], Endoscopy Room [facility] [address] [place] [address] Delta Rodriguez MD [address] [place] [address] ESOPHAGOGASTRODUODENOSCOPY (EGD), FLEXIBLE, TRANSORAL, DIAGNOSTIC 05/05/2024 9:30 AM EST Hospital Encounter Rad[facility] [address] [place] [facility] [place] [address] 05/05/2024 10:45 AM EST Appointment [facility] [address] [place] [facility] [place] [address] 05/05/2024 3:30 PM EST Office Visit Otolaryngology/ Head & Neck/Facial Plastic Surgery [address] [place] [facility] [place] [address] Ede Vieira MD [address] [place] [facility] [address] 05/12/2024 8:40 AM EST Office Visit Pulmonary Medicine, [facility] [address] [place] [address] Rigoberto Lassiter MD [address] [place] [address] 07/20/2024 3:00 PM EST Office Visit [facility] [address] [facility] [place] [address] Torri Urbano CRNP 132 [facility] [place] [address] 09/01/2024 3:30 PM EDT Procedure Only Urology, [facility] [address] [facility] [place] [address] Enrique Wall MD 27 [facility] [place] [address] 12/14/2024 3:30 PM EDT Office Visit Cardiology, [facility] [address] [facility] [place] [address] Kassandra Sam CRNP 400 [facility] [place] [address] 01/18/2025 3:00 PM EDT Office Visit [facility] [address] [facility] [place] [address] Bandar Bailon DO 132 [facility] [place] [address] Scheduled Procedures Name Priority Associated Diagnoses Date/Ti [...] this encounter Medical Devices Implanted Type Area Manager Clinical Device Identifier Shelf Expiration Date Model / Serial / Lot Graft Lyoplnt 2.5x2.5cm 1x1 - [id number] Implanted:Qty: 1 on 03/07/2022 by Valeriano Hathaway MD at OR [facility] B KIRKPATRICK : AESCULAP [id number] 10/20/2026 [id number] / [id number] / [id number] Graft Lyoplnt 2.5x2.5cm 1x1 - [id number] Implanted:Qty: 1 on 03/07/2022 by Valeriano Hathaway MD at OR [facility] uLna KIRKPATRICK : [id number] 10/20/2026 [id number] / [id number] / [id number] documented as of this encounter Advance Directives [...] the patient have Health Care Power of Bartender Helper? No * Full Code Date Activated Date [...] Directives occurred with: Not Discussed Care Teams Shoeshiner Relationship Specialty Start Date End Date Bandar Bailon DO [address] [place] [address] PCP - General Family Medicine 10/10/20 documented as of this encounter
--- OUTSIDE RECORDS SUMMARY | 2024-05-10 05:43 | External Medical Summary | Summary of Care ---
Author Name Unknown Organization [facility] Address [address] [facility] [place] [address] Phone [phone] Care Team Providers Care Frame Catcher Name Role Phone Rui Bailontwin Garrisonpriyanka Primary Care Provider Reason for Visit * Reason Onset Date Comments Preop Pt Assessment 03/30/2024 Encounter Details Date Type Department Care Team (Late st Contact Info) Description 03/30/2024 Telephone Pre Surgery Center, [facility] [address] [place] [address] Khalif Wall MD [address] [place] [address] Preop Pt Assessment Allergies Active Allergy Reactions Criticality Noted Date Comments Sulfamethoxazole-Trimet hoprim Itching 07/16/2021 Pt noted total body itching within one hour of first dose. Took benedryl and inhaler and stopped med. Codeine Other (Please comment) Medium 04/23/2017 Allergic reaction Other reaction(s): UNSURE REACTION - HAPPENED A CHILD Sulfa Antibiotics High 05/22/2022 Other reaction(s): Swelling of Lip/Tongue/Throat documented as of this encounter (statuses as of 03/31/2024) Medications Medication Sig Dispensed Refills Start Date [...] each (=3 months supply). [facility] at [address] [place] [address], [place] [address], [place] [address]. 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 Increased risk for Long QT Syndrome. 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 Asthma, mild persistent 04/29/2012 Overview: Allergic component ROBERT (obstructive sleep apnea) 02/01/2010 Overview: documented as of this encounter (statuses as of 03/31/2024) Resolved Problems Problem Noted Date Diagnosed Date [...] as of this encounter (statuses as of 03/31/2024) Immunizations Name Administration Dates Next Due COVID-19 mRNA, LNP-s, No Pre serve, 2-Dose Series ([employer]) 04/26/2021,10/20/2020,09/27/2020 COVID-19, MRNA-LNP, 23-24, P F, 50 [...] Encounter OR [facility], Operating Room [facility] [address] [place] [phone] Khalif Wall MD [address] [place] [address] 04/06/2024 9:59 AM EDT - 04/06/2024 11:32 AM EDT Surgery OR [facility], Operating Room [facility] [address] [place] [phone] Khalif Wall MD [address] [place] [address] REPAIR INITIAL INGUINAL HERNIA REDUCIBLE AGE 5 OR MORE 04/08/2024 10:00 AM EDT Scheduled Telephone General Surgery, [facility] [address] [place] [address] Adolfo, Nurse Gen Surg [facility] [address] [place] [address] 04/21/2024 1:15 PM EDT Office Visit General Surgery, [facility] [address] [place] [address] Khalif Wall MD [address] [place] [address] 04/28/2024 9:00 AM EST Hospital Encounter ENDO [facility], Endoscopy Room [facility] [address] [place] [address] Delta Rodriguez MD [address] [place] [address] 04/28/2024 9:00 AM EST - 04/28/2024 9:30 AM EST Surgery ENDO [facility], Endoscopy Room [facility] [address] [place] [address] Delta Rodriguez MD [address] [place] [address] ESOPHAGOGASTRODUODENOSCOPY (EGD), FLEXIBLE, TRANSORAL, DIAGNOSTIC 05/05/2024 9:30 AM EST Appointment [facility] [address] [place] [address] 05/05/2024 10:45 AM EST Appointment [facility] [address] [place] [address] 05/05/2024 3:30 PM EST Office Visit Otolaryngology/ Head & Neck/Facial Plastic Surgery [address] [place] [address] Ede Vieira MD [address] [place] [facility] [place] [address] 05/12/2024 8:40 AM EST Office Visit Pulmonary Medicine, [facility] 132 [facility] [place] [address] Rigoberto Lassiter MD [address] [place] [address] 07/20/2024 3:00 PM EST Office Visit [facility] [address] [facility] [place] [address] Torri [facility] CRNP [facility] [place] [address] 09/01/2024 3:30 PM EDT Procedure Only Urology, [facility] 132 [facility] [place] [address] Enrique Wall MD 27 [facility] [place] [address] 12/14/2024 3:30 PM EDT Office Visit Cardiology, [facility] 132 [facility] [place] [address] Kassandra Sam CRNP 400 [facility] [place] [address] 01/18/2025 3:00 PM EDT Office Visit [facility] 132 [facility] [place] [address] Bandar Bailon DO 132 [facility] [place] [address] Scheduled Procedures Name Priority Associated Diagnoses Date/Ti [...] encounter Medical Devices Implanted Type Area Rn First Assistant Device Identifier Shelf Expiration Date Model / Serial / Lot Graft Lyoplnt 2.5x2.5cm 1x1 - [id number] Implanted:Qty: 1 on 03/07/2022 by Valeriano Hathaway MD at OR [facility] B KIRKPATRICK : AESCULAP [id number] 10/20/2026 [id number] / [id number] / [id number] Graft Lyoplnt 2.5x2.5cm 1x1 - [id number] Implanted:Qty: 1 on 03/07/2022 by Valeriano Hathaway MD at OR [facility] B KIRKPATRICK : AESCULAP [id number] 10/20/2026 [id number] / [id number] / [id number] documented as of this encounter Advance Directives [...] the patient have Health Care Power of Applications Intern? No * Full Code Date Activated Date [...] Directives occurred with: Not Discussed Care Teams Frame Catcher Relationship Specialty Start Date End Date Bandar Bailon DO [address] [place] [address] PCP - General Family Medicine 10/10/20 documented as of this encounter
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
--- OUTSIDE RECORDS SUMMARY | 2024-05-10 05:43 | External Medical Summary | Summary of Care ---
Author Name Unknown Organization [facility] Address [address] [place] [address] Phone [phone] Care Team Providers Care Clock Mechanic Name Role Phone Uvaldo Bandar Li DO Primary Care Provider Reason for Visit * Reason Onset Date Comments Appointment 03/22/2024 Encounter Details Date Type Department Care Team (Late st Contact Info) Description 03/22/2024 Telephone [facility] [place] [address] [place] [address] Caitlin Morrell PsyD [address] [place] [address] Appointment Allergies Active Allergy Reactions [...] as of this encounter (statuses as of 03/22/2024) Medications Medication Sig Dispensed Refills Start Date [...] (=3 months supply). [facility] at [address] [place] [address], [place] [id number]. 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 Increased risk for Long QT Syndrome. 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 (Household - [...] Encounter OR [facility], Operating Room [facility] [address] [place] [address] Khalif Wall MD [address] [place] [address] 04/06/2024 10:14 AM EDT - 04/06/2024 11:47 AM EDT Surgery OR [facility], Operating Room [facility] [address] [place] [address] Khalif Wall MD [address] [place] [address] REPAIR INITIAL INGUINAL HERNIA REDUCIBLE AGE 5 OR MORE 04/21/2024 1:15 PM EDT Office Visit General Surgery, [facility] [address] [place] [address] Khalif Wall MD [address] [place] [address] 04/28/2024 9:00 AM EST Hospital Encounter ENDO [facility], Endoscopy Room [facility] [address] [place] [address] Delta Rodriguez MD [address] [place] [address] 04/28/2024 9:00 AM EST - 04/28/2024 9:30 AM EST Surgery ENDO [facility], Endoscopy Room [facility] [address] [place] [address] Delta Rodriguez MD [address] [place] [address] ESOPHAGOGASTRODUODENOSCOPY (EGD), FLEXIBLE, TRANSORAL, DIAGNOSTIC 05/05/2024 3:30 PM EST Office Visit Otolaryngology/H ead & Neck/Facial Plastic Surgery [address] [facility] [place], [place] [address] Ede Vieira MD [address] [facility] [place], [place] [address] 05/12/2024 8:40 AM EST Office Visit Pulmonary Medicine, [facility] [address] [facility] [place] [address] Rigoberto Lassiter MD [address] [place] [address] 07/20/2024 3:00 PM EST Office Visit [facility] [address] [facility] [place] [address] Torri Urbano CRNP 132 [facility] [place] [address] 09/01/2024 3:30 PM EDT Procedure Only Urology, [facility] [address] [facility] [place] [address] Enrique Wall MD [address] [facility] [place] [address] 12/14/2024 3:30 PM EDT Office Visit Cardiology, [facility] [address] [facility] [place] [address] Kassandra Sam CRNP [address] [facility] [place] [address] 01/18/2025 3:00 PM EDT Office Visit [facility] [address] [facility] [place] [address] Bandar Bailon DO 132 [facility] [place] [address] Scheduled Procedures Name Priority Associated Diagnoses Date/Ti [...] this encounter Medical Devices Implanted Type Area Senior Living Advisor Device Identifier Shelf Expiration Date Model / Serial / Lot Graft Lyoplnt 2.5x2.5cm 1x1 - [id number] Implanted:Qty: 1 on 03/07/2022 by Valeriano Hathaway MD at OR [facility] B [employer]IRKPATRICK : [employer] [id number] 10/20/2026 [id number] / [id number] / [id number] Graft Lyoplnt 2.5x2.5cm 1x1 - [id number] Implanted:Qty: 1 on 03/07/2022 by Valeriano Hathaway MD at OR [facility] B KIRKPATRICK : [employer] [id number] 10/20/2026 [id number] / [id number] / [id number] documented as of this encounter Advance Directives [...] the patient have Health Care Power of Chief Controller? No * Full Code Date Activated Date [...] Directives occurred with: Not Discussed Care Teams Clock Mechanic Relationship Specialty Start Date End Date Bandar Bailon DO [address] [place] [address] PCP - General Family Medicine 10/10/20 documented as of this encounter
--- OUTSIDE RECORDS SUMMARY | 2024-05-10 05:44 | External Medical Summary ---
Author Name Unknown Address Unknown Organization K01:[facility] [place] - [address] [place] [address] Laboratory Report Ordering Provider Test Date Status LOPES,TYRESE 03/10/2024 09:30:23 Final Observation Date Value Abnormality Reference (Units ) Status Cortisol 03/10/2024 09:30:23 5.4 2.5-19.5 ( ug/dL) Final AM Reference Range: 4.8 - 19 .5 ug/dL
PM Reference Range: 2.5 - 11.9 ug/dL Performing Location LAB[facility]ATORY C - [address] [place] [address]
--- OUTSIDE RECORDS SUMMARY | 2024-05-10 05:44 | External Medical Summary | Summary of Care ---
Author Name Unknown Organization [facility] Address [address] [place] [address] Phone [phone] Care Team Providers Care Tree Cutter Name Role Phone Dharmesh Bailonr Guillermo Primary Care Provider Reason for Referral * Precert (Within 10 days (routine)) - Pending Review Specialty Diagnoses / Procedures Referred By Contac t Referred To Contact Radiology Diagnoses Chronic radicular lumbar pain DDD (degenerative disc disease), lumbar Procedures MRI T SPINE WO CONTRAST Arik Santana DO [address] [place] [address] Referral ID Status Reason Start Date Expiration Date V isits Requested Visits Authorized [id number] Pending Review 03/09/2024 999 999 * Evaluate & Treat - Unlimited Visits (Within 10 days (routine)) - Authorized Specialty Diagnoses / Procedures Referred By Contac t Referred To Contact Psychology Diagnoses Chronic radicular lumbar pain DDD (degenerative disc disease), lumbar Arik Santana DO [address] [place] [address] Filomena Lim PsyD [address] [place] [address] Referral ID Status Reason Start Date Expiration Date Visits Requested Visits Authorized [id number] Authorized Specialty Services Required 03/08/2024 999 999 Question Answer Referral Priority Within 10 days (routine) Where should this appointment be scheduled? [facility] Is this referral for medication management? No Reason for Referral: Pain Specific Condition? Pre-Surgical Spinal Cord Stimulator or Dorsal Column Stimulator Eval Comments Pre-SCS evaluation/stratification. Encounter Details Date Type Department Care Team (Late st Contact Info) Description 03/03/2024 Telephone Interventional Pain Center, [facility] [address] [place] [address] Arik Santana DO [address] [place] [address] Allergies Active Allergy Reactions Criticality Noted Date Comments Sulfamethoxazole-Trimet hoprim Itching 07/16/2021 Pt noted total body itching within one hour of first dose. Took benedryl and inhaler and stopped med. Codeine Other (Please comment) Medium 04/23/2017 Allergic reaction Other reaction(s): UNSURE REACTION - HAPPENED A CHILD Sulfa Antibiotics High 05/22/2022 Other reaction(s): Swelling of Lip/Tongue/Throat documented as of this encounter (statuses as of 03/10/2024) Medications Medication Sig Dispensed Refills Start Date [...] each (=3 months supply). [facility] at [address] [place] [address], [facility], [place] [address]. 1 g 09/12/2022 Active Mupirocin 2 % External Ointment (Bactroban) Apply to affected toenail sites once daily. Cover with dry bandage. 22 g 11/13/2022 Active Atorvastatin Calcium 20 MG Oral Tablet [...] during sickness 400 Tablet 1 03/14/2023 Active Vitamin D3 20 MCG (800 UNIT) [...] Oral Tablet (Corgard)Indicatio ns:NSVT (nonsustained ventricular tachycardia) ([facility]) Take 1 Tablet by mouth in the [...] in the morning. 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 Increased risk for Long QT Syndrome. 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 Asthma, mild persistent 04/29/2012 Overview: Allergic component ROBERT (obstructive sleep apnea) 02/01/2010 Overview: documented as of this encounter (statuses as of 03/10/2024) Resolved Problems Problem Noted Date Diagnosed Date [...] as of this encounter (statuses as of 03/10/2024) Immunizations Name Administration Dates Next Due COVID-19 mRNA, LNP-s, No Pre serve, 2-Dose Series ([employer]) 04/26/2021,10/20/2020,09/27/2020 COVID-19, MRNA-LNP, 23-24, P F, 50 MCG/0.5 mL, 12 YRS AND ABOVE, IM (MODERNA-Spikevax) 05/31/2023 Covid-19, Mrna, Lnp-s, Pf, B ivalent, 50 Mcg, IM, 12 yrs and above (Moderna) 11/04/2022 Pneumococcal Conjugate Vacc, 13 Valent (Prevnar) 03/20/2016 Pneumococcal Polysaccharide PPV23 (Pneumovax) 05/16/2021,05/28/2013 RSV Vac., Recomb, Adjuvant, PF,0.5 Ml (Arexvy) 05/31/2023 Season Influenza, Quad, PF, Adjuvanted, 65+ Yrs, IM (FLUAD) 02/07/2020 Seasonal Influenza, PF, 6 M & above, [...] you got the money to buy more. Patient declined Within the past 12 months, t he food you bought just didn't last and you didn't have money to get more. Patient declined 06/2022 Utilities Answer Date Recorded Do you have trouble paying y our heating, water, or electric bill? (Adult - for ages 18 years and over) Not on file 12/09/2023 Is your family able to pay t he heat, water, or electric bill? (Household - for ages 0-17 years) Not on file 12/09/2023 Does your family have access to good internet? (Household - for ages 0-17 years) Not on file 12/09/2023 Social Connections Answer Date Recorded How often do you feel lonely or isolated from those around you? (Adult - for ages 18 years and over) Not on file 12/09/2023 Sex and Gender Information Value Date Recorded [...] Telephone Encounter - Kassandra Arreola LPN - 03/10/2024 1:49 PM EDT Pt aware to call us for f/u after he receives appt dates for psych eval and tspine mri * Telephone Encounter - Desi Sy DO - 03/09/2024 9:37 AM EDT Pt can hold his aspirin for the time needed for the procedure. Desi Sy DO Department of Cardiology [facility] [place] [address] * Telephone Encounter - Kassandra Arreola LPN - 03/08/2024 1:21 PM EDT Patient does have some weakness in b/l lower ext, L is worse, feels like it's "asleep" Gets worse frequently but not constant Would like to pursue spinal cord stim workup * Telephone Encounter - Kassandra Arreola LPN - 03/05/2024 12:10 PM EDT Phone went to voicemail-voicemail full. * Telephone Encounter - Kassandra Arreola LPN - 03/04/2024 9:00 AM EDT Phone went straight to voicemail and voicemail was full. * Telephone Encounter - Talat Eric OSA - 03/03/2024 3:31 PM EDT Patient was in for his urology appointment and was asking about [employer]tronic Procedure where the belt is installed in your back. He is wanting that done soon and wants to schedule Psych appt. Please call patient to set up appointment. documented in this encounter Plan of Treatment Upcoming Encounters Date Type Department Care Team (Latest Contact Info) Description 04/28/2024 9:00 AM EST Hospital Encounter ENDO OSSC, Endoscopy Room [facility] [address] [place] [phone] Delta Rodriguez MD [address] [place] [address] 04/28/2024 9:00 AM EST - 04/28/2024 9:30 AM EST Surgery ENDO OSS[facility], Endoscopy Room [facility] [address] [place] [phone] Delta Rodriguez MD [address] [place] [address] ESOPHAGOGASTRODUODENOSCOPY (EGD), FLEXIBLE, TRANSORAL, DIAGNOSTIC 05/05/2024 3:30 PM EST Office Visit Otolaryngology/H ead & Neck/Facial Plastic Surgery [address] [place] [address] Ede Vieira MD [address] [place] [address] 05/12/2024 8:40 AM EST Office Visit Pulmonary Medicine, [facility] 132 [facility] [place] [address] Rigoberto [facility] [address] [facility] [address] 07/20/2024 3:00 PM EST Office Visit Family Practice [facility] [address] [place] [address] Torri Urbano CRNP [address] [place] [address] 09/01/2024 3:30 PM EDT Procedure Only Urology, [facility] [address] [facility] [place] [address] Enrique Wall MD [address] [place] [address] 12/14/2024 3:30 PM EDT Office Visit Cardiology, [facility] [address] [facility] [place] [address] Kassandra Sam CRNP [address] [facility] [place] [address] 01/18/2025 3:00 PM EDT Office Visit Family Practice [facility] [address] [facility] [place] [address] Bandar Bailon, [address] [facility] [place] [address] Scheduled Orders Name Type Priority Associated Diagnoses Orde r Schedule MRI T SPINE WO CONTRAST Medical Imaging Routine Chronic radicular lumbar pain DDD (degenerative disc disease), lumbar Expected: 03/09/2024, Expires: 06/07/2024 XR CHEST 2 VIEWS Medical Imaging Routine Chronic radicular lumbar pain DDD (degenerative disc disease), lumbar Ordered: 03/08/2024 Scheduled Procedures Name Priority Associated Diagnoses Date/Ti me ESOPHAGOGASTRODUODENOSCOPY ( EGD), FLEXIBLE, TRANSORAL, DIAGNOSTIC Gastroesophageal reflux disease, unspecified whether esophagitis present Esophageal dysphagia 04/28/2024 9:00 AM EST COLONOSCOPY FLEXIBLE PROXIMA L DIAGNOSTIC Recall History of colon polyps Scheduled Referrals Name Type Priority Associated Diagnoses Orde r Schedule ADULT/PEDS PSYCHOLOGY REFERRAL OP Referral Within 10 days (routine) Chronic radicular lumbar pain DDD (degenerative disc disease), lumbar Ordered: 03/08/2024 Health Maintenance Due Date Last Done Comments Cologuard 01/08/2001 Fecal Occult Blood Test 01/08/2001 Sigmoidoscopy 01/08/2001 Adult Wellness Visit 01/08/2022 COVID-19 Vaccine ( season) 2024 05/31/2023, 11/04/2022, 04/26/2021, Additional history exists Influenza Vaccine (FLU shot) (#1) 2024 04/03/2023, 02/26/2022, 05/16/2021, Additional history exists Depression Screening 06/24/2024 06/24/2023 [...] Discontinued 02/25/2023, 02/25/2023, 11/24/2018, Additional history exists HPV (Gardasil) Vaccine Aged Out No lo nger eligible based on patient's age to complete this topic Hepatitis B Vaccine Aged Out No longe r eligible based on patient's age to complete this topic MENINGOCOCCAL (MENACTRA/MENVEO) Aged Out No longer eligible based on patient's age to complete this topic documented as of this encounter Medical Devices Implanted Type Area Assembler Piano Device Identifier Shelf Expiration Date Model / Serial / Lot Graft Lyoplnt 2.5x2.5cm 1x1 - [id number] Implanted:Qty: 1 on 03/07/2022 by Valeriano Hathaway MD at [facility] [place] : AESCULAP [id number] 10/20/2026 [id number] / [id number] / [id number] Graft Lyoplnt 2.5x2.5cm 1x1 - [id number] Implanted:Qty: 1 on 03/07/2022 by Valeriano Hatahway MD at OR [facility] [place] : AESCULAP [id number] 10/20/2026 [id number] / [id number] / [id number] documented as of this encounter Visit Diagnoses Diagnosis Chronic radicular lumbar pain- Primary Thoracic or lumbosacral neuritis or radiculitis, unspecified DDD (degenerative disc disease), lumbar Degeneration of lumbar or lumbosacral intervertebral disc Gastroesophageal reflux disease, unspecified whether esophagitis present [...] the patient have Health Care Power of Associate Professor Of Art History? No * Full Code Date Activated Date [...] Directives occurred with: Not Discussed Care Teams Tree Cutter Relationship Specialty Start Date End Date Bandar Bailon DO [address] [place] [address] PCP - General Family Medicine 10/10/20 documented as of this encounter
--- OUTSIDE RECORDS SUMMARY | 2024-05-10 05:44 | External Medical Summary | Summary of Care ---
Author Name Unknown Organization [facility] Address [address] [place] [address] Phone [phone] Care Team Providers Care Recorder Helper Gravity Prospecting Name Role Phone Bandar Bailon DO Primary Care Provider Reason for Visit * Reason Onset Date Comments Surgery 03/16/2024 Encounter Details Date Type Department Care Team (Late st Contact Info) Description 03/16/2024 Telephone General Surgery, [facility] [address] [facility] [address] Services, Scheduling [address] [place] [address] Surgery Allergies Active Allergy Reactions Criticality Noted Date Comments Sulfamethoxazole-Trimet hoprim Itching 07/16/2021 Pt noted total body itching within one hour of first dose. Took benedryl and inhaler and stopped med. Codeine Other (Please comment) Medium 04/23/2017 Allergic reaction Other reaction(s): UNSURE REACTION - HAPPENED A CHILD Sulfa Antibiotics High 05/22/2022 Other reaction(s): Swelling of Lip/Tongue/Throat documented as of this encounter (statuses as of 03/16/2024) Medications Medication Sig Dispensed Refills Start Date [...] (=3 months supply). [facility] at [address] [place] [address], [facility], [place] [address]. 1 g 09/12/2022 Active Mupirocin 2 % [...] as of this encounter (statuses as of 03/16/2024) Active Problems Problem Noted Date Diagnosed Date [...] 03/18/2018 Overview: pathogenic KCNQ1 gene variant (c.1893dupC, p.[id number]) detected via [employer] Shuttle Expressode. Increased risk for Long QT Syndrome. 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 Asthma, mild persistent 04/29/2012 Overview: Allergic component ROBERT (obstructive sleep apnea) 02/01/2010 Overview: documented as of this encounter (statuses as of 03/16/2024) Resolved Problems Problem Noted Date Diagnosed Date [...] as of this encounter (statuses as of 03/16/2024) Immunizations Name Administration Dates Next Due COVID-19 mRNA, LNP-s, No Pre serve, 2-Dose Series (Line[employer]) 04/26/2021,10/20/2020,09/27/2020 COVID-19, MRNA-LNP, 23-24, P F, 50 [...] encounter Miscellaneous Notes * Telephone Encounter - Rosalina Hall OSA - 03/16/2024 8:35 AM EDT Pt calling in, he got his release to have his surgery and would like to get his surgery reschedule.Please contact pt documented in this encounter Plan of Treatment Upcoming Encounters Date Type Department Care Team (Latest Contact Info) Description 4 9:00 AM EDT Telemedicine Psychology [facility] [address] [place] [address] Eveline Morrell PsyD [address] [place] [facility] [place] [address] 4 12:00 PM EDT Imaging Radiology [facility] 1st [facility] [address] [place] [address] 4 3:15 PM EDT Office Visit General Surgery, [facility] [address] [place] [address] Khalif Wall MD [address] [place] [address] 4 9:00 AM EST Hospital Encounter ENDO [facility], Endoscopy Room [facility] [address] [place] [phone] Delta Rodriguez MD [address] [place] [address] 4 9:00 AM EST - 4 9:30 AM EST Surgery ENDO O[facility], Endoscopy Room [facility] [address] [place] [phone] Delta Rodriguez MD 132 [facility] [place] [address] ESOPHAGOGASTRODUODENOSCOPY (EGD), FLEXIBLE, TRANSORAL, DIAGNOSTIC 4 3:30 PM EST Office Visit Otolaryngology/ Head & Neck/Facial Plastic Surgery [address] [place] [address] Ede Vieira MD [address] [place] [address] 4 8:40 AM EST Office Visit Pulmonary Medicine, [facility] 132 [facility] [place] [address] Rigoberto Lassiter MD [address] [place] [address] 5 3:00 PM EST Office Visit Family Practice [facility] 132 [facility] [place] [address] Torri Urbano CRNP 132 [facility] [place] [address] 5 3:30 PM EDT Procedure Only Urology, [facility] 132 [facility] [place] [address] Enrique Wall MD [address] [place] [address] 5 3:30 PM EDT Office Visit Cardiology, [facility] [place] [address] Kassandra Sam CRNP [address] [place] [address] 3:00 PM EDT Office Visit Family Practice [facility] [place] [address] Bandar Bailon, [address] [place] [address] Scheduled Procedures Name Priority Associated Diagnoses Date/Ti [...] 2024 05/31/2023, 11/04/2022, 04/26/2021, Additional history exists Postponed from 02/22/2024 (Unavailable) Depression Screening 06/24/2024 06/24/2023 Diabetes Screening 11/30/2026 [...] this encounter Medical Devices Implanted Type Area Twister Tender Device Identifier Shelf Expiration Date Model / Serial / Lot Graft Lyoplnt 2.5x2.5cm 1x1 - [id number] Implanted:Qty: 1 on 03/07/2022 by Valeriano Hathaway MD [place] [facility] [place] : AESCULAP [id number] 10/20/2026 [id number] / [id number] / [id number] Graft Lyoplnt 2.5x2.5cm 1x1 - [id number] Implanted:Qty: 1 on 03/07/2022 by Valeriano Hathaway MD at [place] [facility] [place] : AESCULAP [id number] 10/20/2026 [id number] / [id number] / [id number] documented as of this encounter Advance Directives [...] patient have Health Care Power of Green Marketing Analyst? No * Full Code Date Activated Date [...] Directives occurred with: Not Discussed Care Teams Recorder Helper Gravity Prospecting Relationship Specialty Start Date End Date Bandar Bailon DO [address] [place] [address] PCP - General Family Medicine 10/10/20 documented as of this encounter
--- OUTSIDE RECORDS SUMMARY | 2024-05-10 05:44 | External Medical Summary | Summary of Care ---
Author Name Unknown Organization [facility] Address [address] [place] [address] Phone [phone] Care Team Providers Care Die Try Out Worker Stamping Name Role Phone Bandar Bailon DO Primary Care Provider Reason for Visit * Reason Onset Date Comments Surgery 03/16/2024 Encounter Details Date Type Department Care Team (Late st Contact Info) Description 03/16/2024 Telephone General Surgery, [facility] [address] [facility] [address] Services, Scheduling [address] [place] [address] Surgery Allergies Active Allergy Reactions Criticality Noted [...] (=3 months supply). [facility] at [address] [place] [address], [facility], [place] [address]. 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 Increased risk for Long QT Syndrome. Cardiac [...] mRNA, LNP-s, No Pre serve, 2-Dose Series ([employer]) 04/26/2021,10/20/2020,09/27/2020 COVID-19, MRNA-LNP, 23-24, P F, 50 [...] Telephone Encounter - Inna Stewart OSA - 03/16/2024 8:55 AM EDT Scheduled with Dr Wall on 03/19/24. * Telephone Encounter - Rosalina Hall OSA - 03/16/2024 8:35 AM EDT Pt calling in, he got his release to have his surgery and would like to get his surgery reschedule.Please contact pt documented in this encounter Plan of Treatment Upcoming Encounters Date Type Department Care Team (Latest Contact Info) Description 4 9:00 AM EDT Telemedicine Psychology [facility] [address] [place] [address] Eveline Morrell PsyD [address] [place] [address] 4 12:00 PM EDT Imaging Radiology [facility] 1st [facility] [address] [place] [address] 4 3:15 PM EDT Office Visit General Surgery, [facility] [address] [place] [address] Khalif Wall MD 132 [facility] [place] [address] 4 9:00 AM EST Hospital Encounter ENDO OSS, Endoscopy Room [facility] [address] [place], [place] [phone] Delta Rodriguez MD [address] [place] [address] 4 9:00 AM EST - 4 9:30 AM EST Surgery ENDO OSS, Endoscopy Room [facility] [address] [place], [place] [phone] Delta Rodriguez MD [address] [place] [address] ESOPHAGOGASTRODUODENOSCOPY (EGD), FLEXIBLE, TRANSORAL, DIAGNOSTIC 4 3:30 PM EST Office Visit Otolaryngology/ Head & Neck/Facial Plastic Surgery [address] [facility] [place] [address] Ede Vieira MD [address] [place] [address] 4 8:40 AM EST Office Visit Pulmonary Medicine, [facility] 132 [facility] [place] [address] Rigoberto Lassiter MD [address] [facility] [place] [address] 5 3:00 PM EST Office Visit Family Practice [facility] [address] [place] [address] Torri Urbano CRNP [address] [place] [address] 5 3:30 PM EDT Procedure Only Urology, [facility] 132 [facility] [place] [address] Enrique Wall MD [address] [place] [address] 5 3:30 PM EDT Office Visit Cardiology, [facility] 132 [facility] [place] [address] Kassandra Sam CRNP [address] [facility] [place] [address] 5 3:00 PM EDT Office Visit Family Practice [facility] 132 [facility] [place] [address] Bandar Bailon, [address] [facility] [place] [address] Scheduled Procedures Name Priority Associated Diagnoses Date/Ti [...] this encounter Medical Devices Implanted Type Area Business Leader Device Identifier Shelf Expiration Date Model / Serial / Lot Graft Lyoplnt 2.5x2.5cm 1x1 - [id number] Implanted:Qty: 1 on 03/07/2022 by Valeriano Hathaway MD at OR [facility] [place] : AESCUHAKEEMP [id number] 10/20/2026 [id number] / [id number] / [id number] Graft Lyoplnt 2.5x2.5cm 1x1 - [id number] Implanted:Qty: 1 on 03/07/2022 by Valeriano Hathaway MD at OR [facility] [place] : AESCULAP [id number] 10/20/2026 [id number] / [id number] / [id number] documented as of this encounter Advance Directives [...] the patient have Health Care Power of Trust And Estates Paralegal? No * Full Code Date Activated Date [...] Directives occurred with: Not Discussed Care Teams Die Try Out Worker Stamping Relationship Specialty Start Date End Date Bandar Bailon DO [address] [place] [address] PCP - General Family Medicine 10/10/20 documented as of this encounter
--- OUTSIDE RECORDS SUMMARY | 2024-05-10 05:44 | External Medical Summary | Summary of Care ---
Author Name Unknown Organization [facility] Address [address] [facility] [place] [address] Phone [phone] Care Team Providers Care Loin Puller Name Role Phone Bandar Bailon DO Primary Care Provider Reason for Visit * Reason Onset Date Comments pre-op exam Patient presents for pre-op clearance for hernia surgery with Dr. Martin. Medication Administration 03/15/2024 Flu an d/or Pneumo Inj Encounter Details Date Type Department Care Team (Late st Contact Info) Description 03/15/2024 5:20 PM EDT Office Visit General Internal Medicine [facility] [place] [address] [facility] [place] [address] Ava Tran PA-C [address] [facility] [place] [address] Pre-op exam*; Left inguinal hernia; Tachy-dell syndrome (HCC); Cardiac pacemaker in situ; Mild persistent asthma without complication; ROBERT (obstructive sleep apnea); Seizure disorder, simple partial, 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 Took benedryl and inhaler and stopped med. Codeine Other (Please comment) Medium 04/23/2017 Allergic reaction Other reaction(s): UNSURE REACTION - HAPPENED A CHILD Sulfa Antibiotics High 05/22/2022 Other reaction(s): Swelling of Lip/Tongue/Throat documented as of this encounter (statuses as of 03/18/2024) Medications Medication Sig Dispensed Refills Start Date [...] each (=3 months supply). [facility] at [address] [place] [address], [address], [place] [address]. 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 Increased risk for Long QT Syndrome. 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 Asthma, mild persistent 04/29/2012 Overview: Allergic component ROBERT (obstructive sleep apnea) 02/01/2010 Overview: documented as of this encounter (statuses as of 03/18/2024) Resolved Problems Problem Noted Date Diagnosed Date [...] as of this encounter (statuses as of 03/18/2024) Immunizations Name Administration Dates Next Due COVID-19 mRNA, LNP-s, No Pre serve, 2-Dose Series ([employer]) 04/26/2021,10/20/2020,09/27/2020 COVID-19, MRNA-LNP, 23-24, P F, 50 [...] Sign Reading Time Taken Comments Blood Pressure 100/66 03/15/2024 5:29 PM EDT Pulse 67 03/15/2024 5:29 PM EDT Temperature 36.3 C (97.4 F) 03/15/2024 5:29 PM ED T Respiratory Rate 16 03/15/2024 5:29 PM EDT Oxygen Saturation 95% 03/15/2024 5:29 PM EDT Inhaled Oxygen Concentration - - Weight 84.6 kg (186 lb 6.4 oz) 03/15/2024 5:29 P M EDT Height 166.5 cm (5' 5.55") 03/15/2024 5:29 PM ED T Body Mass Index 30.5 03/15/2024 5:29 PM EDT documented in this encounter Functional Status Functional Status Response Date of Assess ment Do you have serious difficul ty walking or climbing stairs? (5 years old or older) Yes-as per pt he gets short of breathe 03/08/2022 documented as of this encounter Patient Instructions * Patient Instructions* Nesha Anderson MED ASSIST - 03/15/2024 5:35 PM EDT ~~PATIENT INSTRUCTIONS FOR FLU SHOT~~ Possible side effects of influenza vaccine, (flu shot), are usually mild and include: 1. Soreness or redness at injection site 2. Low grade fever 3. Body aches You may use Tylenol/Acetaminophen as needed for these symptoms. LET YOUR DOCTOR KNOW IMMEDIATELY IF YOU HAVE DIFFICULTY BREATHING OR SWALLOWING, EXPERIENCE ITCHINGOF FEET OR HANDS, HAVE SWELLING OF EYES, FACE OR INSIDE OF NOSE. documented in this encounter Progress Notes * Nesha Anderson MED ASSIST - 03/15/2024 5:34 PM EDT PRE - ADMINISTRATION DOCUMENTATION Are you experiencing any cold symptoms or fever? No Have you had Guillain-[place]roll[place] Syndrome (an illness that causes paralysis) within the last 6 weeks? No Have you had the flu shot in the past? YES Have you ever had a reaction to the flu shot? No EB Chao, 03/15/2024 5:34 PM Immunization Administration Documentation Time Out Procedure Performed: Yes Patient Identified (Ask Name/Date of ): Yes Does the patient have a fever greater than 101 degrees today? No Patient allergic to latex? No VFC Stock: No Immunization(s) verified: Yes, Immunization Name: Flu, VIS Sheet(s) given: Yes Verified Side and Site: Yes Verified Shot(s) with Parent(s)/Patient: Yes * Ava Tran PA-C - 03/15/2024 5:33 PM EDT Preoperative Risk Assessment Note NAME: Félix De La O : 1955 DATE: 03/15/2024 Preoperative Risk Assessment Note Referred by: Dr. Abraham Pre-operative evaluation for: inguinal hernia repair. Date of procedure: not yet scheduled. Brief History of Present Illness: Félix De La O 69 year old male has a past medical history of Anesthesia complication (10/13/2017), Asthma, Benign neoplasm of colon (05/05/2012), Bradycardia, sinus (01/23/2018), Cardiac pacemaker in situ (01/23/2018), Diverticulitis of colon, Dyslipidemia (10/16/2021), Gastroesophageal reflux disease with esophagitis (10/20/2019), Generalized osteoarthritis, Impacted cerumen (01/25/2010), Overweight (BMI 25.0-29.9) (02/22/2022), Pituitary gland enlarged (HCC) (10/02/2017), S/P nasal septoplasty(03/07/2022), Secondary adrenal insufficiency (HCC) (02/20/2022), Sialolithiasis of submandibular gland, Sleep apnea, obstructive, and Tachy-dell syndrome (HCC) (10/20/2019). Major Risk Factors for Cardiac Events: History of OH, cardiac revascularization, cardiac bypass: No History of cerebrovascular accident or TIA: No History of systolic heart failure: No History of insulin-dependent diabetes: No History of chronic kidney disease (creatinine greater than 2): No Anesthesia History: Anesthesia reaction: No History of surgical complications: Denies Personal history of venous thromboembolic disease: Denies Functional Assessment: They can do heavy house work like vacuuming and grocery shop. The patient's functional status is adequate (equal to 4 METS). Can take care of self, such as eat, dress, or use the toilet=1MET Can walk to block or go up a flight of steps=4 METs Can do heave housework=4-10 METs Can participate in strenuous sports=>10 METs} Obstructive Sleep Apnea: History of ROBERT? Yes, uses BiPap Current active medical problems: I have review and updated past medical history, past surgical history, past family history and social history. Current Outpatient Medications Medication Sig Dispense Refill [...] once monthly as indicated. 30 Each 3 Atorvastatin Calcium 20 MG Oral Tablet (Lipitor) [...] as needed for Cramping. 180 Capsule 3 Mesalamine 1.2 GM Oral Tablet Delayed Release [...] ONE CAPSULE BEFORE BEDTIME 180 Capsule 2 Rhyaejeohdo-Eyfjyczxs-Ehtlnc 200-62.5-25 MCG/ACT Aerosol Powder Breath Activated (Trelegy [...] USE WITH B12 INJECTIONS 3 Each 3 Famotidine 40 MG Oral Tablet (Pepcid) Take 1 tablet by mouth daily. 90 Tablet 1 Tobramycin Powder Compounded tobramycin 40mg capsules to be added to sinus rinse twice daily. Dispense 180 of each (=3 months supply). [facility] at [facility] [address], [address], [place] [address]. 1 g 0 Mupirocin 2 % External Ointment (Bactroban) Apply to affected toenail sites once daily. Cover with dry bandage. (Patient not taking: Reported on 03/15/2024) 22 g 0 DULoxetine HCl 60 MG Oral Capsule Delayed Release Particles (Cymbalta) Take 1 Capsule by mouth in the morning. Do not cut, crush or chew. 90 Capsule 5 predniSONE 20 MG Oral Tablet (Deltasone) Take 1 Tablet by mouth in the morning. (Patient not taking: Reported on 03/15/2024) 5 Tablet 0 Current Facility-Administered Medications Medication Dose Route Frequency Provider Last Rate Last Admin Albuterol Sulfate (Proventil) (2.5 MG/3ML) 0.083% inhalation solution 2.5 mg 2.5 mg Nebulizer Q4H PRN Ashly Parker CRNP 2.5 mg at 10/15/22 0757 Review of Systems: Review of Systems Constitutional: Negative for chills and fever. Respiratory: Negative for shortness of breath and wheezing. Cardiovascular: Negative for chest pain. Gastrointestinal: Negative for diarrhea, nausea and vomiting. Genitourinary: Negative for dysuria and hematuria. Neurological: Negative for dizziness and seizures. Physical exam: BP 100/66 | Pulse 67 | Temp 36.3 C (97.4 F) (Tympanic) | Resp 16 | Ht 1.665 m (5' 5.55") | Wt 84.6 kg (186 lb 6.4 oz) | SpO2 95% | BMI 30.50 kg/m | BSA 1.98 m Physical Exam Constitutional: General: He is not in acute distress. Appearance: He is not diaphoretic. HENT: Mouth/Throat: Mouth: Mucous membranes are moist. Pharynx: Oropharynx is clear. Cardiovascular: Rate and Rhythm: Normal rate and regular rhythm. Pulmonary: Effort: Pulmonary effort is normal. Breath sounds: Normal breath sounds. Abdominal: General: Bowel sounds are normal. Palpations: Abdomen is soft. Musculoskeletal: Cervical back: Normal range of motion and neck supple. Skin: General: Skin is warm and dry. Neurological: General: No focal deficit present. Mental Status: He is alert. Mental status is at baseline. I have reviewed most recent labs and EKG. 1. Pre-op exam 2. Left inguinal hernia 3. Tachy-dell syndrome (HCC) 4. Cardiac pacemaker in situ 5. Mild persistent asthma without complication 6. ROBERT (obstructive sleep apnea) 7. 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 Need for prophylactic vaccination and inoculation against influenza - INFLUENZA VAC., TRIVALENT, HD, PF, 65 AND ABOVE, 0.5 ML IM (FLUZONE HD) Revised Cardiac Risk Index (RCRI): 1. High-risk type of surgery (examples include vascular and any open intraperitoneal or intrathoracic procedures). No 2. History of ischemic heart disease (history of myocardial infarction or positive exercise test, current compliant of chest pain considered to be secondary to myocardial ischemia, use of nitrate therapy, or ECG with pathological Q waves; do not count prior coronary revascularization procedure unless one of the other criteria for ischemic heart disease is present). No 3. History of heart failure. No 4. History of cerebrovascular disease. No 5. Diabetes mellitus requiring treatment with insulin. No 6. Preoperative serum creatinine >2.0. No Pt has revised cardiac index score of Two Risk Factors- 2.4% (95% CI: 1.3-3.5) for the surgery scheduled. Patient is indeterminate for the listed procedure. Ava Tran PA-C 03/15/2024 5:33 PM documented in this encounter Nursing Notes * Nesha Anderson MED ASSIST - 03/15/2024 5:33 PM EDT Chief Complaint Patient presents with pre-op exam Patient presents for pre-op clearance for hernia surgery with Dr. Martin. documented in this encounter Plan of Treatment Upcoming Encounters Date Type Department Care Team (Latest Contact Info) Description 03/19/2024 3:15 PM EDT Office Visit General Surgery, [facility] [address] [place] [address] Khalif Wall MD [address] [place] [address] 04/28/2024 9:00 AM EST Hospital Encounter ENDO [facility], Endoscopy Room [facility] [address] [place] [phone] Delta Rodriguez MD [address] [place] [address] 04/28/2024 9:00 AM EST - 04/28/2024 9:30 AM EST Surgery ENDO [facility], [facility] [address] [facility] [place] [phone] Delta Rodriguez MD [address] [facility] [place] [address] ESOPHAGOGASTRODUODENOSCOPY (EGD), FLEXIBLE, TRANSORAL, DIAGNOSTIC 05/05/2024 3:30 PM EST Office Visit Otolaryngology/H ead & Neck/Facial Plastic Surgery [address] [place] [address] Ede Vieira MD [address] [place] [address] 05/12/2024 8:40 AM EST Office Visit Pulmonary Medicine, [facility] [address] [facility] [place] [address] Rigoberto Lassiter MD [address] [place] [address] 07/20/2024 3:00 PM EST Office Visit Family Practice [facility] [address] [facility] [place] [address] Torri Urbano CRNP [address] [facility] [place] [address] 09/01/2024 3:30 PM EDT Procedure Only Urology, [facility] [address] [facility] [place] [address] Enrique Wall MD [address] [place] [address] 12/14/2024 3:30 PM EDT Office Visit Cardiology, [facility] [address] [facility] [place] [address] Kassandra Sam CRNP [address] [place] [address] [place] [address] 01/18/2025 3:00 PM EDT Office Visit Family Practice [facility] [address] [facility] [place] [address] Bandar Bailon, [address] [facility] [place] [address] Scheduled Procedures Name Priority Associated Diagnoses Date/Ti [...] this encounter Medical Devices Implanted Type Area Mainspring [employer] Device Identifier Shelf Expiration Date Model / Serial / Lot Graft Lyoplnt 2.5x2.5cm 1x1 - [id number] Implanted:Qty: 1 on 03/07/2022 by Valeriano Hatahway MD [place] [facility] [place] [facility] [place] : [employer] [id number] 10/20/2026 [id number] / [id number] / [id number] Graft Lyoplnt 2.5x2.5cm 1x1 - [id number] Implanted:Qty: 1 on 03/07/2022 by Valeriano Hathaway MD at [place] [facility] [place] [facility] [place] : [employer] [id number] 10/20/2026 [id number] / [id number] / [id number] documented as of this encounter Visit Diagnoses Diagnosis Pre-op exam- Primary Preoperative examination, unspecified Left inguinal hernia Inguinal hernia without mention of obstruction or gangrene, unilateral or unspecified, (not specified as recurrent) Tachy-dell syndrome (HCC) Sinoatrial node dysfunction Cardiac pacemaker in situ Mild persistent asthma without complication Unspecified asthma ROBERT (obstructive sleep apnea) Obstructive sleep apnea (adult) (pediatric) Seizure disorder, simple partial, 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 No * Full Code Date Activated Date [...] Directives occurred with: Not Discussed Care Teams Loin Puller Relationship Specialty Start Date End Date Bandar Bailon DO [address] [place] [address] PCP - General Family Medicine 10/10/20 documented as of this encounter
--- OUTSIDE RECORDS SUMMARY | 2024-05-10 05:44 | External Medical Summary | Summary of Care ---
Author Name Unknown Organization [facility] Address [address] [place] [address] Phone [phone] Care Team Providers Care Instrumentation And Controls Technician Name Role Phone Dharmesh Bailonjayla Garrisonpriyanka Primary Care Provider Reason for Visit * Reason Comments Psychological Evaluation * Evaluate & Treat - Unlimited Visits (Within 10 days (routine)) - Authorized Specialty Diagnoses / Procedures Referred By Luz castillo Referred To Contact Psychology Diagnoses Chronic radicular lumbar pain DDD (degenerative disc disease), lumbar Max, Arik Bal DO [address] [place] [phone] Filomena Lim PsyD [address] [place] [address] Referral ID Status Reason Start Date Expiration Date Visits Requested Visits Authorized [id number] Authorized Specialty Services Required 03/08/[phone] Encounter Details Date Type Department Care Team (Late st Contact Info) Description 03/17/2024 9:00 AM EDT Telemedicine Psychology Leesa Pro [address] [place] [address] Eveline Morrell PsyD [address] [place] [address] Major depressive disorder, recurrent episode, moderate (HCC)* Allergies Active Allergy Reactions Criticality Noted [...] as of this encounter (statuses as of 03/17/2024) Medications Medication Sig Dispensed Refills Start Date [...] (=3 months supply). [facility] at [address] [place] [address], [address], [place] [address]. 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 Increased risk for Long QT Syndrome. 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 Asthma, mild persistent 04/29/2012 Overview: Allergic component ROBERT (obstructive sleep apnea) 02/01/2010 Overview: documented as of this encounter (statuses as of 03/17/2024) Resolved Problems Problem Noted Date Diagnosed Date [...] as of this encounter (statuses as of 03/17/2024) Immunizations Name Administration Dates Next Due COVID-19 mRNA, LNP-s, No Pre serve, 2-Dose Series ([employer]) 04/26/2021,10/20/2020,09/27/2020 COVID-19, MRNA-LNP, 23-24, P F, 51 [...] as of this encounter Progress Notes * Eveline Morrell PsyD - 03/17/2024 8:57 AM EDT BEHAVIORAL MEDICINE ASSESSMENT FOR SPINAL CORD STIMULATOR (SCS) DEPARTMENT OF PSYCHIATRY & BEHAVIORAL MEDICINE [address] [facility] [place] [id number] Psychology Leesa Pro [address] [facility] [place] [address] 03/17/2024 9:01 AM REASON FOR REFERRAL Félix De La O ([id number]) is a 69 year old male on referral for pain management. Félix De La O's primary care provider is Bandar Bailon DO. A review was conducted of the medical record. Time spent on this visit was 48 minutes. SUMMARY OF ASSESSMENT Medical & Psychological risk factors for surgery and/or invasive treatment methods are obtainedfrom medical records and a structured interview. In addition, specific psychological tests are administered. The results are then subjected to an analysis using a research and evidence-based algorithm (Leida, 2003) for the purpose of prognostic categorization (Good, Fair, Poor). Classification results have been statistically shown to predict surgical outcome. FAIR PROGNOSIS: It is my professional opinion, based on this interview, and record review, the patient has a FAIR prognosis for Spinal Cord Stimulator implant trial. If the trial continues, it shouldcontinue with concurrent integrated approaches based on the following recommendations. It is expected that prognosis could improve with engagement in treatment. We discussed targeting mood concerns and pain catastrophizing/inactivity. Patient was open to starting CBT-CP group. Patient would also benefit from additional education on SCS, including better understanding pain relief he can expect from SCS. RECOMMENDATIONS & MANAGEMENT SUGGESTIONS: Interdisciplinary approach is recommended for chronic pain. Recommend patient start Cognitive Behavioral Therapy for Chronic Pain: agreed to return for treatment and scheduled accordingly: yes Recommend f/u Physical Therapy as medically indicated. Discussed physical activities such as walking. Recommend weight loss. Discussed risks of obesity and impact on pain management. Identified strategies for improved weight loss. Discussed biopsychosocial model of pain and psychological component of treatment for cognitive and behavioral changes. Discussed psychosocial factors and encouraged involvement in activities to promote psychological strengths/resources. Discussed surgical outcomes and how to define "success", as well as expectations in an effort to support successful surgical outcome. Discussed the importance of treating ROBERT and utilizing BiPAP 7 nights per week as prescribed Discussed the importance of improving sleep hygiene. Sent patient resources. RISK FACTORS FOR CONSIDERATION Potential barriers to treatment adherence: not psychologically minded, poor coping skills, history of noncompliance with treatment, and financial. Problematic Health behaviors (weight) Social Stressors: financial (impacting ability to engage in other treatment such as physical therapy) SCS risk factors include: History of noncompliance (due to finances) Unrealistic expectations about SCS implant effectiveness Lack of understanding about the Spinal Cord Stimulator Active depression Pain Catastrophizing: Individuals who score high on measures of pain catastrophizing generally report more intense pain, more severe depression and anxiety, show higher levels of pain behavior and disability, consume more analgesic medication, and have more prolonged stays when hospitalized. STRENGTHS Patient's strengths include good social support network and motivated Strengths for SCS include invested in treatment and good social support Pain coping: Fair using avoidance and turning to social supports. Willingness to participate and active involvement in evaluation Curiosity about insights and information discussed by practitioner Positive changes that the patient feels will result from recovery Desire to learn info about surgery, injury, and rehab techniques Willingness to learn pain control self-management techniques (e.g., relaxation, cognitive-behavioral strategies, pacing, etc.). Commitment to postoperative treatment plan INFORMATION PREFERENCE Low information seeker Patient reports that providers are communicating well but there is a need for additional education on SCS (please see bottom of report for additional information). Patient location: HOME. I was in a hospital or clinic location. After connecting through Sendbloom[employer],patient was verified with two unique identifiers. 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 Methods to assure confidentiality were taken. Patient acknowledged consent and understanding of pr ivacy and security of the Telemedicine visit. The patient agreed to participate. Provider determined this patient has capacity to receive and benefit from telehealth services. Timing assessment: This is the initial onset of the assessed illness: SCS evaluation Face to Face Start Time: see start time at beginning of note Face to Face Stop Time: 9:49 AM Referral Source: Arik Santana DO Risk Assessment: Completed, No acute safety concerns, and [place] Suicide Severity Rating Scale Results 03/17/2024 09:42 [place] SUICIDE SEVERITY RATING SCALE (C-SSRS) Have you wished you were or wished you could go to sleep and not wake up? (In the Past Month or Since Last Visit) No Have you had any actual thoughts of killing yourself? (In the Past Month or Since Last Visit) No Have you been thinking about how you might do this? (In the Past Month or Since Last Visit) No Have you had thoughts and had some intention of acting on them? (In the Past Month or Since Last Visit) No Have you started to work out or worked out the details of how to kill yourself? Do you intend to carry out this plan? (In the Past Month or Since Last Visit) No Have you ever done anything, started to do anything, or prepared to do anything to end your life? (Lifetime) No Was this within the past 3 months? No Level of Risk No Risk Identified History of Present Illness: PAIN HISTORY Etiology/Site(s) of pain: Patient reports that their chronic pain is in their lower back, shouldersand legs. They explained that this pain initially began in 2019. Patient reported that pain is due to neuropathy and degenerative disk disease. Functional Pain Scale (Gloth, et al., 2001): 0 - No Pain (Does not interfere w/activities) 1 - Tolerable (Does not interfere w/activities) 2 - Tolerable (Interferes with some activities) 3 - Intolerable (Able to use phone, TV, read) 4 - Intolerable (Unable to use phone, TV, read) 5 - Intolerable (Unable to verbally communicate) Remissions/Exacerbations: No Pain Level (PEG): 6.33 (Average of 3 items) Intensity: 7 General Activity: 6 Enjoyment: 6 What makes pain worse/increasing conditions: weather changes (e.g. cold or damp weather), walking, going up stairs, lifting objects, and dehydration What makes pain better/decreasing conditions: medication, heating pad, massaging device Types of treatment and effectiveness: Surgery: None Nerve Injections/Blocks: (10) steroid injections between 2017 - 2023 Patient reports that they are helpful at decreasing pain but relief is short term (2 weeks) Physical Therapy: (2) incomplete rounds of PT between 2019 - 2020 "It was getting too costly so I could only go for a few sessions" Patient reports that PT was not effective at reducing pain. Behavioral Management: None TENS Unit: None Chiropractic: 2014 (1) session Patient reports that chiropractic treatment was not effective at reducing pain. 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 PAIN BEHAVIORS OBSERVED: no MEDICATION RISK BEHAVIORS: no MEDICATION INTOXICATION BEHAVIORS: no CURRENT MEDICATIONS: Current Outpatient Medications Medication Sig Dispense Refill [...] (=3 months supply). [facility] at [address] [place] [address], [facility], [place] [id number]. 1 g 0 Mupirocin 2 % External [...] ONE CAPSULE BEFORE BEDTIME 180 Capsule 2 Agpvhpzmigq-Isvjggmbj-Sbpdvh 200-62.5-25 MCG/ACT Aerosol Powder Breath Activated (Trelegy [...] Parker CRNP 2.5 mg at 10/15/22 0757 MEDICAL PROBLEMS Past Medical History: Diagnosis Date Anesthesia complication 10/13/2017 Breathing issues Asthma Benign neoplasm of colon 05/05/2012 COLONOSCOPY FLEXIBLE PROXIMAL DIAGNOSTIC performed by Jerod Asencio MD at [facility],path shows active Crohn's , benign polyps repeat in 3 years Bradycardia, sinus 01/23/2018 Cardiac pacemaker in situ 01/23/2018 Diverticulitis of colon Dyslipidemia 10/16/2021 Gastroesophageal reflux disease with esophagitis 10/20/2019 Generalized osteoarthritis Impacted cerumen 01/25/2010 Overweight (BMI 25.0-29.9) 02/22/2022 Pituitary gland enlarged (HCC) 10/02/2017 S/P nasal septoplasty 03/07/2022 Secondary adrenal insufficiency (HCC) 02/20/2022 Sialolithiasis of submandibular gland Sleep apnea, obstructive Tachy-dell syndrome (HCC) 10/20/2019 TESTING Pain Appraisal Scale - Short Form (PAS-SF): 25 Total Raw score of 17= T-score of 55 (69th percentile) Total Raw score of 20 = t-score of 60 (75th percentile) MOTIVATION FOR TREATMENT/INTERVENTION Patient is motivated to move forward with the SCS to be more active. SCS IMPLANT Has patient had a SCS trial period? No. He has a clear understanding of the following expectations during the trial: He should continue to take pain medications He needs to keep a journal Trial typically lasts 5-7 days He will need to have a 2-3 hour period during the trial that the SCS is OFF He needs to be careful about bending, twisting or reaching overhead No heavy lifting He can not get the area wet (e.g. no showers, baths, swimming) SOCIAL SUPPORT ASSESSMENT Identified caregiver: yes Spousal reinforcement of pain behavior: no EXPECTATIONS/GOALS FOR SCS Patient did not have reasonable expectations about the potential for pain reduction after surgery Patient did not understand the the need to use the lowest possible setting that gives some relief Patient did not understand that they will be unable to drive with stimulator on, that there will shelia need for modified MRI, and that they must avoid jarring activities such as water skiing, horseback riding, etc Patient did not understand the potential complications and side effects (infection, pins and needles feelings, fever, infection at the lead insertion site, bleeding, injury to the spinal cord, the lead might move) Patient did not understand the functioning, controls, and restrictions for the stimulator Patient did not understand the benefit of activity/multimodal approach (e.g. physical therapy; increased activity as recommended; increased self-monitoring; behavioral medicine or interventional painmanagement if recommended, etc.) and is not open to following recommendation from medical team and utilizing a multimodal approach (due to financial constraints) Mood Screen Results: Patient Health Questionnaire (PHQ-9) score is 9. This is in PHQ-9 range of 5-9 mild depression. PHQ-9, Item 9 score = 0 Suicidal ideation: no Generalized Anxiety Disorder (CARLA-7) score is 10. This is in CARLA-7 range of 10- 14 moderate anxiety. Psychiatry Review of Systems: Depression: depressed mood, fatigue, and feelings of worthlessness/guilt Suicide: denied Homicide: denied Generalized Anxiety Disorder: nervousness, increase in worry, trouble relaxing, and irritability Psychosis: denied symptoms Obsessive Compulsive Disorder: denied symptoms Panic: denied symptoms Disordered Eating: denied symptoms PTSD: denied symptoms La: denied symptoms Current Psychiatric Treatment: Outpatient Therapy: Denies Outpatient Psychiatry: Denies Other: Denies Past Psychiatric History: Outpatient therapy: Denies lifetime history Psychotropic medication management: Denies lifetime history IOP, PHP, or residential: Denies lifetime history Psychiatric hospitalizations: Denies lifetime history Self injury and suicide attempts: Denies Prior psychotropic medical trials: Denies Trauma, abuse, exploitation or trafficking: none Family Psychiatric History: Psychiatric diagnoses: Unknown Attempted suicides/ by suicide: Unknown Drug and alcohol abuse: Unknown Personal, Family and Social History: Living situation: Self Relationship status: Single Progeny: Children: 0 Education: H.S. 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 Hours of sleep per night: 4 - 6 (noted frequent daytime napping) Current Obstructive Sleep Apnea Diagnosis? Yes If yes, nights per week using CPAP: 0 Pain screening: Is patient experiencing any pain related to today's visit? Yes - Consider non-pharmacological interventions for pain management. Current Pain Level (0-10): 5 Nutritional Screening: No concerns Mental Status Evaluation: Appearance: Well groomed, casually dressed, appearing stated age Abnormal Movement: No abnormal movements noted Behavior: Calm, cooperative and appropriate Speech and Language: Normal in rate, rhythm, volume and tone Mood: Euthymic Affect: Appropriate to content and mood-congruent Thought Process: Logical, linear and goal directed Thought Content: No abnormal thought content Hallucinations: No perceptual disturbances Suicidality: No suicidal ideations, intent, method or plan or passive wish Homicidality: No homicidal ideations, intent, plan or target Orientation: Oriented to self, time, place and circumstances Attention: Intact Recent and Remote memory: Intact Insight: Good Judgement: Good Fund of Knowledge: Good Assessment/Formulation: Félix De La O ([id number]) is a 69 year old male seen today by behavioral medicine FOR SPINAL CORD STIMULATOR (SCS) and recommendations associated with today's evaluation can be found above. Diagnosis: MDD, recurrent, moderate Plan: Low risk crisis plan was developed on 03/17/2024. As this is a one time evaluation a treatment plan will not be created. However, should patient engage in ongoing treatment, a plan will be created with that provider at that time. Type of Service: Psychological Evaluation Crisis Planning: What I can do if I ever experience a crisis (much worse symptoms, severe distress or thoughts of self-harm): Talking to loved one or friend or trusted person People I can call in the event of a crisis: friends. Additional resources I can utilize if the previous steps are ineffective (e.g: ED, hotlines): Suicide and Crisis [facility], Clinic number: [phone], and [facility] Hotlines for Help Patients Strengths and Facilitating Factors to care: Goal Oriented The assessment and plan for Félix De La O are detailed at the beginning of this report. Treatment options and recommendations/interventions reviewed. Patient and/or caregiver verbalize understanding and agrees to plan with explanation of risks/benefits, aware of how to contact clinic with questions. Eveline Morrell Psy.D. Clinical Psychologist [facility] Department of Psychiatry & Behavioral Health documented in this encounter Plan of Treatment Upcoming Encounters Date Type Department Care Team (Latest Contact Info) Description 03/17/2024 12:00 PM EDT Imaging Radiology [address] [place] [address] 03/19/2024 3:15 PM EDT Office Visit General Surgery, [facility] [address] [place] [address] Khalif Wall MD [address] [place] [address] 04/28/2024 9:00 AM EST Hospital Encounter ENDO OSS[facility], Endoscopy Room [facility] [address] [place] [phone] Delta Rodriguez MD [address] [place] [address] 04/28/2024 9:00 AM EST - 04/28/2024 9:30 AM EST Surgery ENDO OSSC, Endoscopy Room [facility] [address] [place] [phone] Delta Rodriguez MD [address] [facility] [place], [place] [address] ESOPHAGOGASTRODUODENOSCOPY (EGD), FLEXIBLE, TRANSORAL, DIAGNOSTIC 05/05/2024 3:30 PM EST Office Visit Otolaryngology/H ead & Neck/Facial Plastic Surgery [address] [place] [address] Ede Vieira MD [address] [place] [address] 05/12/2024 8:40 AM EST Office Visit Pulmonary Medicine, [facility] [address] [facility] [place] [address] Rigoberto Lassiter MD [address] [facility] [address] 07/20/2024 3:00 PM EST Office Visit Family Practice [facility] [address] [facility] [place] [address] Tor[facility] [address] [facility] [address] 09/01/2024 3:30 PM EDT Procedure Only Urology, [facility] [address] [facility] [place] [address] Enrique Wall MD [address] [place] [address] 12/14/2024 3:30 PM EDT Office Visit Cardiology, [facility] [address] [facility] [place] [address] Kassandra Sam CRNP [address] [place] [phone] 01/18/2025 3:00 PM EDT Office Visit Family Practice [facility] [address] [place] [address] Bandar Bailon, [address] [place] [address] Scheduled Procedures Name Priority Associated Diagnoses Date/Ti [...] this encounter Medical Devices Implanted Type Area Optimization Consultant Device Identifier Shelf Expiration Date Model / Serial / Lot Graft Lyoplnt 2.5x2.5cm 1x1 - [id number] Implanted:Qty: 1 on 03/07/2022 by Valeriano Hathaway MD at [facility] B [place] : [employer]AP [id number] 10/20/2026 [id number] / [id number] / [id number] Graft Lyoplnt 2.5x2.5cm 1x1 - [id number] Implanted:Qty: 1 on 03/07/2022 by Valeriano Hathaway MD at OR [facility] B [place] : AESCULAP [id number] 10/20/2026 [id number] / [id number] / [id number] documented as of this encounter Visit Diagnoses Diagnosis Major depressive disorder, recurrent episode, moderate (HCC)- Primary Major depressive disorder, recurrent episode, moderate Gastroesophageal reflux disease, unspecified whether esophagitis present [...] the patient have Health Care Power of Latent Fingerprint Examiner? No * Full Code Date Activated Date [...] Directives occurred with: Not Discussed Care Teams Instrumentation And Controls Technician Relationship Specialty Start Date End Date Bandar Bailon DO [address] [place] [address] PCP - General Family Medicine 10/10/20 documented as of this encounter
--- OUTSIDE RECORDS SUMMARY | 2024-05-10 05:44 | External Medical Summary | Summary of Care ---
Author Name Unknown Organization [facility] Address [address] [facility] [place] [address] Phone [phone] Care Team Providers Care Director Of Placement Name Role Phone Bandar Bailon DO Primary Care Provider Reason for Visit * Reason Onset Date Comments pre-op exam 03/15/2024 Encounter Details Date Type Department Care Team (Late st Contact Info) Description 03/15/2024 Telephone General Internal Medicine [facility] [address] [place] [address] Ava Tran PA-C [address] [facility] [place] [phone] pre-op exam Allergies Active Allergy Reactions Criticality Noted Date [...] each (=3 months supply). [facility] at [address] [place] [address], [place] [address], [place] [address]. 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 Increased risk for Long QT Syndrome. Cardiac [...] mRNA, LNP-s, No Pre serve, 2-Dose Series ([email or web address]) 04/26/2021,10/20/2020,09/27/2020 COVID-19, MRNA-LNP, 23-24, P F, 51 [...] Miscellaneous Notes * Telephone Encounter - Kassandra Sam CRNP - 03/19/2024 1:20 PM EDT Optimized from a cardiac standpoint and cleared to undergo procedure. No additional cardiac workup is necessary. Thank You ANIKA Bullard * Telephone Encounter - Rigoberto Lassiter MD - 03/15/2024 7:25 PM EDT Patient is cleared for proposed surgical intervention from pulmonary standpoint, with low to moderate risk for cardiopulmonary complications. Benefit outweighs the risk. * Telephone Encounter - Ava Tran PA-C - 03/15/2024 6:04 PM EDT This mutual pt seen today for a pre-op clearance for L inguinal hernia repair that has not yet beenscheduled with Dr. Abraham. Would like for him to have cardiac clearance as well as clearance from pulmonary going into surgery. Please provide clearance or scheduled appt for clearance if necessary at your discretion. Thank you! documented in this encounter Plan of Treatment Upcoming Encounters Date Type Department Care Team (Latest Contact Info) Description 03/19/2024 3:15 PM EDT Office Visit General Surgery, [facility] [address] [place] [address] Khalif Wall MD [address] [place] [address] 04/28/2024 9:00 AM EST Hospital Encounter ENDO [facility], Endoscopy Room [facility] [address] [place] [address] Delta Rodriguez MD [address] [place] [address] 04/28/2024 9:00 AM EST - 04/28/2024 9:30 AM EST Surgery ENDO [facility], Endoscopy Room [facility] [address] [place] [address] Delta Rodriguez MD [address] [place] [address] ESOPHAGOGASTRODUODENOSCOPY (EGD), FLEXIBLE, TRANSORAL, DIAGNOSTIC 05/05/2024 3:30 PM EST Office Visit Otolaryngology/H ead & Neck/Facial Plastic Surgery [address] [place] [facility] [place] [address] Ede Vieira MD [address] [place] [facility] [place] [address] 05/12/2024 8:40 AM EST Office Visit Pulmonary Medicine, [facility] 132 [facility] [place] [address] Rigoberto Lassiter MD [address] [place] [address] 07/20/2024 3:00 PM EST Office Visit [facility] [address] [facility] [place] [address] Torri Urbano CRNP 132 [facility] [place] [address] 09/01/2024 3:30 PM EDT Procedure Only Urology, [facility] 132 [facility] [place] [address] Enrique Wall MD [address] [facility] [place] [address] 12/14/2024 3:30 PM EDT Office Visit Cardiology, [facility] [address] [facility] [place] [address] Kassandra Sam CRNP [address] [facility] [place] [address] 01/18/2025 3:00 PM EDT Office Visit [facility] [address] [facility] [place] [address] Bandar Bailon DO 132 [facility] [place] [address] Scheduled Procedures Name Priority Associated Diagnoses Date/Ti [...] this encounter Medical Devices Implanted Type Area Digital Media Manager Device Identifier Shelf Expiration Date Model / Serial / Lot Graft Lyoplnt 2.5x2.5cm 1x1 - [id number] Implanted:Qty: 1 on 03/07/2022 by Valeriano Hathaway MD [place] [facility] [place] : AESCULAP [id number] 10/20/2026 [id number] / [id number] / [id number] Graft Lyoplnt 2.5x2.5cm 1x1 - [id number] Implanted:Qty: 1 on 03/07/2022 by Valeriano Hathaway MD at [place] [facility] [place] : AESCULAP [id number] 10/20/2026 [id number] / [id number] / [id number] documented as of this encounter Advance Directives [...] the patient have Health Care Power of Reeling Machine Setup Operator? No * Full Code Date Activated [...] Directives occurred with: Not Discussed Care Teams Director Of Placement Relationship Specialty Start Date End Date Bandar Bailon DO [address] [place] [address] PCP - General Family Medicine 10/10/20 documented as of this encounter
--- OUTSIDE RECORDS SUMMARY | 2024-05-10 05:44 | External Medical Summary ---
Author Name Unknown Address Unknown Organization K01:[facility] [place] [address] [place] [address] Laboratory Report Ordering Provider Test Date Status LOPES,TYRESE 03/10/2024 09:30:23 Final Observation Date Value Abnormality Reference (Units ) Status ACTH 03/10/2024 09:30:23 20.9 7.2-63.3 ( pg/mL) Final Performing Location [facility] - [address] [place] [address]
--- OUTSIDE RECORDS SUMMARY | 2024-05-10 05:44 | External Medical Summary | Summary of Care ---
Author Name Unknown Organization [facility] Address [address] [place] [address] Phone [phone] Care Team Providers Care Supply Chain Director Name Role Phone UvaldoDharmeshjayla Garirsonpriyanka Primary Care Provider Reason for Visit * Reason Onset Date Comments Order Request 03/09/2024 MRI SELLA TURCIC A W WO CONTRAST - Need orders faxed to [facility]. Encounter Details Date Type Department Care Team (Late st Contact Info) Description 03/09/[address] [facility] [address] [place] [address] Sujit Shaikh PA-C [address] [place] [address] Order Request (MRI SELLA TURCICA W WO CONT... Allergies Active Allergy Reactions Criticality Noted Date Comments Sulfamethoxazole-Trimet hoprim Itching 07/16/2021 Pt noted total body itching within one hour of first dose. Took benedryl and inhaler and stopped med. Codeine Other (Please comment) Medium 04/23/2017 Allergic reaction Other reaction(s): UNSURE REACTION - HAPPENED A CHILD Sulfa Antibiotics High 05/22/2022 Other reaction(s): Swelling of Lip/Tongue/Throat documented as of this encounter (statuses as of 03/15/2024) Medications Medication Sig Dispensed Refills Start Date [...] each (=3 months supply). [facility] at [address] [place] [address], [address], [place] [address]. 1 g 09/12/2022 Active Mupirocin 2 % [...] in the morning. 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 Increased risk for Long QT Syndrome. 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 Asthma, mild persistent 04/29/2012 Overview: Allergic component ROBERT (obstructive sleep apnea) 02/01/2010 Overview: documented as of this encounter (statuses as of 03/15/2024) Resolved Problems Problem Noted Date Diagnosed Date [...] as of this encounter (statuses as of 03/15/2024) Immunizations Name Administration Dates Next Due COVID-19 mRNA, LNP-s, No Pre serve, 2-Dose Series ([employer]) 04/26/2021,10/20/2020,09/27/2020 COVID-19, MRNA-LNP, 23-24, P F, 51 [...] encounter Miscellaneous Notes * Telephone Encounter - Laurie Higgins OSA - 03/15/2024 1:57 PM EDT Email sent to [facility]. * Telephone Encounter - Chioma Ji Student - 03/09/2024 1:26 PM EDT MRI order has been successfully faxed to [facility] at [phone] * Telephone Encounter - Kim Collins OSA - 03/09/2024 11:44 AM EDT Pt wants to go to [facility] for closer availability. Would you mind faxing the MRI Sella Turcica W/WO Contrast order to their location? Thank you, Radiology Scheduling documented in this encounter Plan of Treatment Upcoming Encounters Date Type Department Care Team (Latest Contact Info) Description 4 5:20 PM EDT Office Visit General Internal Medicine [facility] [place] [address] [place] [address] Ava Tran PA-C [address] [place] [address] 4 9:00 AM EDT Telemedicine Psychology [place] [address] [place] [phone] Yani MorrellabimaelDani GonsalvesUyen [address] [place] [facility] [place] [address] 4 9:00 AM EST Hospital Encounter ENDO O[facility], Endoscopy Room [facility] [address] [place] [address] Delta Rodriguez MD [address] [place] [address] 4 9:00 AM EST - 4 9:30 AM EST Surgery ENDO OSS, Endoscopy Room [facility] [address] [place] [phone] Delta Rodriguez MD [address] [place] [address] ESOPHAGOGASTRODUODENOSCOPY (EGD), FLEXIBLE, TRANSORAL, DIAGNOSTIC 4 3:30 PM EST Office Visit Otolaryngology/ Head & Neck/Facial Plastic Surgery [address] [place] [facility] [place] [address] Ede Vieira MD [address] [place] [facility] [place] [address] 4 8:40 AM EST Office Visit Pulmonary Medicine, [facility] 132 [facility] [place] [address] Rigoberto Lassiter MD [address] [place] [address] 5 3:00 PM EST Office Visit Family Practice [facility] [address] [place] [address] Torri Urbano CRNP [address] [place] [address] 5 3:30 PM EDT Procedure Only Urology, [facility] 132 [facility] [place] [address] Enrique Wall MD [address] [place] [address] 5 3:30 PM EDT Office Visit Cardiology, [facility] 132 [facility] [place] [address] Kassandra Sam CRNP [address] [facility] [place] [address] 5 3:00 PM EDT Office Visit Family Practice [facility] [address] [facility] [place] [address] Bandar Bailon DO 132 [facility] [place] [address] Scheduled Procedures Name Priority Associated Diagnoses Date/Ti [...] this encounter Medical Devices Implanted Type Area Paramedic Instructor Device Identifier Shelf Expiration Date Model / Serial / Lot Graft Lyoplnt 2.5x2.5cm 1x1 - [id number] Implanted:Qty: 1 on 03/07/2022 by Valeriano Hathaway MD at [place] [facility] : AESCULAP [id number] 10/20/2026 [id number] / [id number] / [id number] Graft Lyoplnt 2.5x2.5cm 1x1 - [id number] Implanted:Qty: 1 on 03/07/2022 by Valeriano Hathaway MD at [place] [facility] : AESCULAP [id number] 10/20/2026 [id number] / [id number] / [id number] documented as of this encounter Advance Directives [...] the patient have Health Care Power of Electric Motor Assembler? No * Full Code Date Activated Date [...] Directives occurred with: Not Discussed Care Teams Supply Chain Director Relationship Specialty Start Date End Date Bandar Bailon DO [address] [place] [address] PCP - General Family Medicine 10/10/20 documented as of this encounter
--- OUTSIDE RECORDS SUMMARY | 2024-05-10 05:44 | External Medical Summary | Summary of Care ---
Author Name Unknown Organization [facility] Address [address] [facility] [place] [address] Phone [phone] Care Team Providers Care Capsule Filler Name Role Phone Bandar Bailon DO Primary Care Provider Reason for Visit * Reason Onset Date Comments pre-op exam 03/15/2024 Encounter Details Date Type Department Care Team (Late st Contact Info) Description 03/15/2024 Telephone General Internal Medicine [facility] 200 [facility] [place] [address] Ava Tran PA-C 200 [facility] [place] [phone] pre-op exam Allergies Active Allergy Reactions Criticality [...] (=3 months supply). [facility] at [address] [place] [address], [place] [address], [place] [address]. 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 Increased risk for Long QT Syndrome. Cardiac [...] mRNA, LNP-s, No Pre serve, 2-Dose Series ([employer]) 04/26/2021,10/20/2020,09/27/2020 COVID-19, MRNA-LNP, 23-24, P F, 51 [...] encounter Miscellaneous Notes * Telephone Encounter - Rigoberto Lassiter MD [...] Telemedicine Psychology [place] [address] [place] [phone] Eveline Morrell PsyD [address] [facility] [place] [address] 4 12:00 PM EDT Imaging Radiology [facility]st [facility] [address] [place] [address] 4 9:00 AM EST Hospital Encounter ENDO OSSC, Endoscopy Room [facility] [address] [place] [address] Delta Rodriguez MD [address] [place] [address] 4 9:00 AM EST - 4 9:30 AM EST Surgery ENDO OSS, Endoscopy Room [facility] [address] [place] [phone] Delta Rodriguez MD [address] [place] [address] ESOPHAGOGASTRODUODENOSCOPY (EGD), FLEXIBLE, TRANSORAL, DIAGNOSTIC 4 3:30 PM EST Office Visit Otolaryngology/ Head & Neck/Facial Plastic Surgery [address] [place] [address] Ede Vieira MD [address] [place] [facility] [place] [address] 4 8:40 AM EST Office Visit Pulmonary Medicine, [facility] [address] [facility] [place] [address] Rigoberto Lassiter MD [address] [place] [address] 5 3:00 PM EST Office Visit Family Practice [facility] [address] [place] [address] Torri Urbano CRNP [address] [place] [address] 5 3:30 PM EDT Procedure Only Urology, [facility] [address] [place] [address] Enrique Wall MD [address] [place] [address] 5 3:30 PM EDT Office Visit Cardiology, [facility] 132 [facility] [place] [address] Kassandra Sam CRNP 400 [facility] [place] [address] 5 3:00 PM EDT Office Visit Family Practice [facility] 132 [facility] [place] [address] Bandar Bailon, 132 [facility] [place] [address] Scheduled Procedures Name Priority Associated Diagnoses Date/Ti [...] this encounter Medical Devices Implanted Type Area Vacuum Cleaner Repair Person Device Identifier Shelf Expiration Date Model / Serial / Lot Graft Lyoplnt 2.5x2.5cm 1x1 - [id number] Implanted:Qty: 1 on 03/07/2022 by Valeriano Hathaway MD at [place] [facility] [place] : [id number] 10/20/2026 [id number] / [id number] / [id number] Graft Lyoplnt 2.5x2.5cm 1x1 - [id number] Implanted:Qty: 1 on 03/07/2022 by Valeriano Hathaway MD at OR [facility] B [place] : AESCULAP [id number] 10/20/2026 [id number] / [id number] / [id number] documented as of this encounter Advance Directives [...] the patient have Health Care Power of Unit Manager Rn? No * Full Code Date Activated Date [...] Directives occurred with: Not Discussed Care Teams Capsule Filler Relationship Specialty Start Date End Date Bandar Bailon DO [address] [place] [address] PCP - General Family Medicine 10/10/20 documented as of this encounter
--- OUTSIDE RECORDS SUMMARY | 2024-05-10 05:44 | External Medical Summary | Summary of Care ---
Author Name Unknown Organization [facility] Address [address] [facility] [place] [address] Phone [phone] Care Team Providers Care Atomizer Assembler Name Role Phone Bandar aBilon DO Primary Care Provider Reason for Visit * Reason Comments Outpatient Testing Encounter Details Date Type Department Care Team (Late st Contact Info) Description 03/10/2024 9:30 AM EDT Laboratory Laboratory, [facility] 132 [facility] [place] [address] [facility] [address] Secondary adrenal insufficiency (HCC) [E27.49 (ICD-10-CM)] Allergies Active Allergy Reactions Criticality Noted Date [...] (=3 months supply). [facility] at [address] [place] [address], [address], [place] [address]. 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 Increased risk for Long QT Syndrome. Cardiac [...] Impacted cerumen 01/25/2010 06/17/2017 Conductive hearing loss 01/25/20100 07/2021 documented as of this encounter (statuses as of 03/10/2024) Immunizations Name Administration Dates Next Due COVID-19 mRNA, LNP-s, No Pre serve, 2-Dose Series (TUNJI) 04/26/2021,10/20/2020,09/27/2020 COVID-19, MRNA-LNP, 23-24, P F, 51 [...] 04/28/2024 9:00 AM EST Hospital Encounter ENDO [facility], Endoscopy Room [facility] [address] [place] [address] Delta Rodriguez MD [address] [place] [address] 04/28/2024 9:00 AM EST - 04/28/2024 9:30 AM EST Surgery ENDO [facility], Endoscopy Room [facility] [address] [place] [phone] Delta Rodriguez MD [address] [place] [address] ESOPHAGOGASTRODUODENOSCOPY (EGD), FLEXIBLE, TRANSORAL, DIAGNOSTIC 05/05/2024 3:30 PM EST Office Visit Otolaryngology/H ead & Neck/Facial Plastic Surgery [address] [place] [facility] [place] [address] Ede Vieira MD [address] [place] [address] 05/12/2024 8:40 AM EST Office Visit Pulmonary Medicine, [facility] [address] [place] [address] Rigoberto Lassiter MD [address] [place] [address] 07/20/2024 3:00 PM EST Office Visit Family Practice [facility] 132 [facility] [place] [address] Torri Urbano CRNP 132 [facility] [place] [address] 09/01/2024 3:30 PM EDT Procedure Only Urology, [facility] 132 [facility] [place] [address] Enrique Wall MD 27 [facility] [place] [address] 12/14/2024 3:30 PM EDT Office Visit Cardiology, [facility] 132 [facility] [place] [address] Kassandra Sam CRNP 400 [facility] [place] [address] 01/18/2025 3:00 PM EDT Office Visit Family Practice [facility] 132 [facility] [place] [address] Bandar Bailon DO 132 [facility] [place] [address] Pending Results Name Type Priority Associated Diagnoses Date /Time ADRENOCORTICOTROPIC HORMONE Lab Routine Secondary adrenal insufficiency (HCC) [E27.49 (ICD-10-CM)] 03/10/2024 9:30 AM EDT CORTISOL Lab Routine Secondary adrenal insufficiency (HCC) [E27.49 (ICD-10-CM)] 03/10/2024 9:30 AM EDT Scheduled Procedures Name Priority Associated Diagnoses [...] this encounter Medical Devices Implanted Type Area Paid Search Marketing Analyst Device Identifier Shelf Expiration Date Model / Serial / Lot Graft Lyoplnt 2.5x2.5cm 1x1 - [id number] Implanted:Qty: 1 on 03/07/2022 by Valeriano Hathaway MD at [place] [facility] [place] : AESCULAP [id number] 10/20/2026 [id number] / [id number] / [id number] Graft Lyoplnt 2.5x2.5cm 1x1 - [id number] Implanted:Qty: 1 on 03/07/2022 by Valeriano Hathaway MD at OR [facility] [place] K[place]KP[place]RICK : [id number] 10/20/2026 [id number] / [id number] / [id number] documented as of this encounter Visit Diagnoses Diagnosis Secondary adrenal insufficiency (HCC) [E27.49 (ICD-10-CM)] Glucocorticoid deficiency Gastroesophageal reflux disease, unspecified whether esophagitis present [...] the patient have Health Care Power of Dry Charge Process Attendant? No * Full Code Date Activated Date [...] Directives occurred with: Not Discussed Care Teams Atomizer Assembler Relationship Specialty Start Date End Date Bandar Bailon DO [address] [place] [address] PCP - General Family Medicine 10/10/20 documented as of this encounter
--- OUTSIDE RECORDS SUMMARY | 2024-05-10 05:45 | External Medical Summary | Summary of Care ---
Author Name Unknown Organization [facility] Address [address] [place] [address] Phone [phone] Care Team Providers Care Licensed Direct Entry Midwife Name Role Phone Bandar Bailon Primary Care Provider Reason for Visit * Reason Onset Date Comments Test Results 03/04/2024 Encounter Details Date Type Department Care Team (Late st Contact Info) Description 03/04/2024 Telephone Pulmonary Medicine, [facility] [address] [facility] [place] [address] Rigoberto Lassiter MD [address] [place] [address] Test Results Allergies Active Allergy Reactions Criticality Noted Date Comments Sulfamethoxazole-Trimet hoprim Itching 07/16/2021 Pt noted total body itching within one hour of first dose. Took benedryl and inhaler and stopped med. Codeine Other (Please comment) Medium 04/23/2017 Allergic reaction Other reaction(s): UNSURE REACTION - HAPPENED A CHILD Sulfa Antibiotics High 05/22/2022 Other reaction(s): Swelling of Lip/Tongue/Throat documented as of this encounter (statuses as of 03/04/2024) Medications Medication Sig Dispensed Refills Start Date [...] (=3 months supply). [facility] at [address] [place] [address], [place] [address], [place] [address]. 1 g 09/12/2022 Active Mupirocin 2 % [...] bedtime. With food.. 180 Tablet 04/08/2023 Active Famotidine 40 MG Oral Tablet (Pepcid) Take 1 tablet by mouth daily. 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 Increased risk for Long QT Syndrome. 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 Asthma, mild persistent 04/29/2012 Overview: Allergic component ROBERT (obstructive sleep apnea) 02/01/2010 Overview: documented as of this encounter (statuses as of 03/04/2024) Resolved Problems Problem Noted Date Diagnosed Date Resolved Date S/P nasal septoplasty 03/07/20222022 History of 2019 novel bergman virus disease (COVID-19) 02/26/2022 12/04/2022 Overview: Most recent 01/2022. hosp w/gastroenteritis. Overweight (BMI 25.0-29.9) 02/22/2022 0 10/29/2022 Vasospasm of peripheral artery 10/22/2021 02/22/2022 Elevated prolactin level 10/30/2019 Bradycardia, sinus 01/23/2018 0 Adrenal insufficiency 11/06/20172017 Anesthesia complication 10/13/201701/22 08/2021 Overview: Breathing issues Neuropathy 01/15/2016 12/09/2016 [...] as of this encounter (statuses as of 03/04/2024) Immunizations Name Administration Dates Next Due COVID-19 mRNA, LNP-s, No Pre serve, 2-Dose Series ([employer]) 04/26/2021,10/20/2020,09/27/2020 COVID-19, MRNA-LNP, 23-24, P F, 51 [...] Telephone Encounter - Danelle Romero LPN - 03/04/2024 11:32 AM EDT ----- Message from Rigoberto Lassiter MD sent at 03/04/2024 11:01 AM EDT ----- 6 minute walk test on 02/05/2024 was negative for hypoxia during ambulation on room air. documented in this encounter Plan of Treatment Upcoming Encounters Date Type Department Care Team (Late st Contact Info) Description 03/05/20 24 10:30 AM EDT Office Visit Otolaryngology /Head & Neck/Facial Plastic Surgery [address] [place] [facility] [place] [address] Ede Vieira MD [address] [place] [address] 03/09/20 24 10:00 AM EDT Telemedicine Neuroendocrine , [place] [address] [place] [facility] [place] [address] Clinic, Neuroendocrine Multidisciplinary [address] [place] [address] 03/17/20 24 8:40 AM EDT Office Visit Family Practice [facility] [address] [place] [address] Anna Brito DO [address] [place] [address] 04/28/20 24 9:00 AM EST Hospital Encounter ENDO [facility], Endoscopy Room [facility] [address] [place] [phone] Delta Rodriguez MD [address] [place] [address] 04/28/20 9:00 AM EST - 04/28/20 9:30 AM EST Surgery ENDO [facility], Endoscopy Room [facility] [address] [place] [phone] Delta Rodriguez MD [address] [place] [address] ESOPHAGOGASTRODUODENOSCOPY (EGD), FLEXIBLE, TRANSORAL, DIAGNOSTIC 05/12/20 8:40 AM EST Office Visit Pulmonary Medicine, [facility] [place] [address] Rigoberto Lassiter MD [address] [facility] [place] [address] 07/20/19 3:00 PM EST Office Visit Family Practice [facility] [address] [facility] [place] [address] Torri Urbano CRNP [address] [facility] [place] [address] 09/02/19 3:30 PM EDT Procedure Only Urology, [facility] [address] [facility] [place] [address] Enrique Wall MD [address] [place] [address] 12/15/19 3:30 PM EDT Office Visit [facility], [facility] [place] [address] Kassandra Sam CRNP [address] [place] [address] 01/19/20 3:00 PM EDT Office Visit Family Practice [facility] [address] [place] [address] Bandar Bailon, [address] [place] [address] Scheduled Procedures Name Priority Associated Diagnoses Date/Ti [...] this encounter Medical Devices Implanted Type Area Tower Climber Device Identifier Shelf Expiration Date Model / Serial / Lot Graft Lyoplnt 2.5x2.5cm 1x1 - [id number] Implanted:Qty: 1 on 03/07/2022 by Valeriano Hathaway MD at OR [facility] [place] : [employer] [id number] 10/20/2026 [id number] / [id number] / [id number] Graft Lyoplnt 2.5x2.5cm 1x1 - [id number] Implanted:Qty: 1 on 03/07/2022 by Valeriano Hathaway MD at OR [facility] [place] : [employer] [id number] 10/20/2026 [id number] / [id number] / [id number] documented as of this encounter Advance Directives [...] the patient have Health Care Power of Hose Inspector? No * Full Code Date Activated Date [...] Directives occurred with: Not Discussed Care Teams Licensed Direct Entry Midwife Relationship Specialty Start Date End Date Bandar Bailon DO [address] [place] [address] PCP - General Family Medicine 10/10/20 documented as of this encounter
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
--- OUTSIDE RECORDS SUMMARY | 2024-05-10 05:45 | External Medical Summary | Summary of Care ---
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 Rigoberto Lassiter MD [address] [place] [address] 07/20/2024 3:00 PM EST Office Visit Family Practice [facility] 132 [facility] [place] [address] Torri Urbano CRNP 132 [facility] [place] [address] 09/01/2024 3:30 PM EDT Procedure Only Urology, [facility] 132 [facility] [place] [address] Enrique Wall MD [address] [place] [address] 12/14/2024 3:30 PM EDT Office Visit Cardiology, [facility] 132 [facility] [place] [address] Kassandra Sam CRNP [address] [place] [address] 01/18/2025 3:00 PM EDT Office Visit Family Practice [facility] 132 [facility] [place] [address] Bandar Bailon DO 132 [facility] [place] [address] Scheduled Orders Name Type Priority Associated Diagnoses Orde r Schedule MRI SELLA TURCICA W WO CONTRAST Medical Imaging Routine Pituitary macroadenoma (HCC) S/P transsphenoidal hypophysectomy (HCC) Secondary adrenal insufficiency (HCC) [E27.49 (ICD-10-CM)] Expected: 02/21/2025 (Approximate), Expires: 04/08/2025 ADRENOCORTICOTROPIC HORMONE Lab Routine Secondary adrenal insufficiency (HCC) [E27.49 (ICD-10-CM)] Expected: 03/09/2024 (Approximate), Expires: 03/09/2025 CORTISOL Lab Routine Secondary adrenal insufficiency (HCC) [E27.49 (ICD-10-CM)] Expected: 03/09/2024 (Approximate), Expires: 03/09/2025 Scheduled Procedures Name Priority Associated Diagnoses Date/Ti [...] this encounter Medical Devices Implanted Type Area Broom Maker Device Identifier Shelf Expiration Date Model / Serial / Lot Graft Lyoplnt 2.5x2.5cm 1x1 - [id number] Implanted:Qty: 1 on 03/07/2022 by Valeriano Hathaway MD at [place] [facility] [place] : AESCULAP [id number] 10/20/2026 [id number] / [id number] / [id number] Graft Lyoplnt 2.5x2.5cm 1x1 - [id number] Implanted:Qty: 1 on 03/07/2022 by Valeriano Hathaway MD at [place] [facility] [place] : AESCULAP [id number] 10/20/2026 [id number] / [id number] / [id number] documented as of this encounter Visit Diagnoses Diagnosis Pituitary macroadenoma (HCC)- Primary Benign neoplasm of pituitary gland and craniopharyngeal [...] patient have Health Care Power of Machine Operator Transplanter? No * Full Code Date Activated Date [...] Directives occurred with: Not Discussed Care Teams Messaging Architect Relationship Specialty Start Date End Date Bandar Bailon DO [address] [place] [address] PCP - General Family Medicine 10/10/20 documented as of this encounter
--- OUTSIDE RECORDS SUMMARY | 2024-05-10 05:45 | External Medical Summary | Summary of Care ---
Author Name Unknown Organization [facility] Address [address] [place] [address] Phone [phone] Care Team Providers Care Advanced Practice Nurse Name Role Phone UvaldoDharmeshjayla Garrisonpriyanka Primary Care Provider Reason for Visit * Reason Onset Date Comments Order Request 03/09/2024 MRI SELLA TURCIC A W WO CONTRAST - Need orders faxed to [facility]. Encounter Details Date Type Department Care Team (Late st Contact Info) Description 03/09/2024 Telephone [facility] [address] [place] [address] Sujit Shaikh PA-C [address] [place] [address] Order Request (MRI SELLA TURCICA [...] each (=3 months supply). [facility] at [address] [place] [address], [address], [place] [address]. 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 Increased risk for Long QT Syndrome. Cardiac [...] mRNA, LNP-s, No Pre serve, 2-Dose Series ([employer]) 04/26/2021,10/20/2020,09/27/2020 COVID-19, MRNA-LNP, 23-24, P F, 51 [...] encounter Miscellaneous Notes * Telephone Encounter - Chioma Ji Student - 03/09/2024 1:26 PM EDT MRI order has been successfully faxed to [facility] at [phone] * Telephone Encounter - Kim Collins OSA - 03/09/2024 11:44 AM EDT Pt wants to go to [facility] for closer availability. Would you mind faxing the MRI Sella Turcica W/WO Contrast order to their location? Thank you, Radiology Scheduling documented in this encounter Plan of Treatment Upcoming Encounters Date Type Department Care Team (Latest Contact Info) Description 04/28/2024 9:00 AM EST Hospital Encounter ENDO [facility], Endoscopy Room [facility] [address] [place] [phone] Delta Rodriguez MD [address] [place] [address] 04/28/2024 9:00 AM EST - 04/28/2024 9:30 AM EST Surgery ENDO [facility], Endoscopy Room [facility] [address] [place] [phone] Delta Rodriguez MD [address] [place] [address] ESOPHAGOGASTRODUODENOSCOPY (EGD), FLEXIBLE, TRANSORAL, DIAGNOSTIC 05/05/2024 3:30 PM EST Office Visit Otolaryngology/H ead & Neck/Facial Plastic Surgery [address] [facility] [place] [address] Ede Vieira MD [address] [facility] [place] [address] 05/12/2024 8:40 AM EST Office Visit Pulmonary Medicine, [facility] 132 [facility] [place] [address] Rigoberto Lassiter MD [address] [place] [address] 07/20/2024 3:00 PM EST Office Visit [facility] 132 [facility] [place] [address] Torri Urbano CRNP 132 [facility] [place] [address] 09/01/2024 3:30 PM EDT Procedure Only Urology, [facility] 132 [facility] [place] [address] Enrique Wall MD 27 [facility] [place] [address] 12/14/2024 3:30 PM EDT Office Visit Cardiology, [facility] 132 [facility] [place] [address] Kassandra Sam CRNP 400 [facility] [place] [phone] 01/18/2025 3:00 PM EDT Office Visit [facility] 132 [facility] [place] [address] Bandar Bailon, [address] [place] [address] Scheduled Procedures Name Priority Associated Diagnoses Date/Ti [...] this encounter Medical Devices Implanted Type Area Navy Airspace Officer Device Identifier Shelf Expiration Date Model / Serial / Lot Graft Lyoplnt 2.5x2.5cm 1x1 - [id number] Implanted:Qty: 1 on 03/07/2022 by Valeriano Hathaway MD at OR [facility] [place] : AESCULAP [id number] 10/20/2026 [id number] / [id number] / [id number] Graft Lyoplnt 2.5x2.5cm 1x1 - [id number] Implanted:Qty: 1 on 03/07/2022 by Valeriano Hathaway MD at OR [facility] [place] : AESCULAP [id number] 10/20/2026 [id number] / [id number] / [id number] documented as of this encounter Advance Directives [...] the patient have Health Care Power of Pmo Manager? No * Full Code Date Activated [...] Directives occurred with: Not Discussed Care Teams Advanced Practice Nurse Relationship Specialty Start Date End Date Bandar Bailon DO [address] [place] [address] PCP - General Family Medicine 10/10/20 documented as of this encounter
--- OUTSIDE RECORDS SUMMARY | 2024-05-10 05:45 | External Medical Summary | Summary of Care ---
Author Name Unknown Organization [facility] Address [address] [place] [address] Phone [phone] Care Team Providers Care Ice Plant Operator Name Role Phone Dharmesh Bailonr Guillermo Primary Care Provider Reason for Referral * Precert (Within 10 days (routine)) - Pending Review Specialty Diagnoses / Procedures Referred By Contac t Referred To Contact Radiology Diagnoses Chronic radicular lumbar pain DDD (degenerative disc disease), lumbar Procedures MRI T SPINE WO CONTRAST Arik Santana DO [address] [place] [address] Referral ID Status Reason Start Date Expiration Date V isits Requested Visits Authorized [id number] Pending Review 03/09/2024 999 999 * Evaluate & Treat - Unlimited Visits (Within 10 days (routine)) - Authorized Specialty Diagnoses / Procedures Referred By Contac t Referred To Contact Psychology Diagnoses Chronic radicular lumbar pain DDD (degenerative disc disease), lumbar Arik Santana DO [address] [place] [address] Filomena Lim PsyD [address] [place] [address] Referral ID Status Reason Start Date Expiration Date Visits Requested Visits Authorized [id number] Authorized Specialty Services Required 03/08/2024 999 999 [...] Info) Description 03/03/2024 Telephone [facility], [facility] [address] [place] [address] Arik Santana DO [address] [place] [...] each (=3 months supply). [facility] at [address] [place] [address], [facility] [[email or web address]] [address], [place] [address]. 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 Increased risk for Long [...] mRNA, LNP-s, No Pre serve, 2-Dose Series ([employer]) 04/26/2021,10/20/2020,09/27/2020 COVID-19, MRNA-LNP, 23-24, P F, 51 [...] encounter Miscellaneous Notes * Telephone Encounter - Desi Sy DO - 03/09/2024 9:37 AM EDT Pt can hold his aspirin for the time needed for the procedure. Desi Sy DO Department of Cardiology [facility] Cardiology [place] [address] * Telephone Encounter - Kassandra Arreola LPN [...] Team (Late st Contact Info) Description 03/09/20 10:00 AM EDT Telemedicine [facility] , [place] [address] [place] [address] Clinic, [facility] [place] [address] [place] [address] 11/06/20 24 9:00 AM EST Hospital Encounter ENDO OSS, Endoscopy Room [facility] [address] [place] [phone] Delta Rodriguez MD [address] [place] [address] 04/28/20 24 9:00 AM EST - 04/28/20 9:30 AM EST Surgery ENDO [facility], Endoscopy Room [facility] [address] [place] [phone] Delta Rodriguez MD [address] [place] [address] ESOPHAGOGASTRODUODENOSCOPY (EGD), FLEXIBLE, TRANSORAL, DIAGNOSTIC 05/05/20 3:30 PM EST Office Visit Otolaryngology /Head & Neck/Facial Plastic Surgery [address] [place] [facility] [place] [address] Ede Vieira MD [address] [place] [place] [address] 05/12/20 24 8:40 AM EST Office Visit Pulmonary Medicine, [facility] [address] [place] [address] Rigoberto Lassiter MD [address] [place] [address] 07/20/19 25 3:00 PM EST Office Visit Family Practice [facility] [address] [place] [address] Torri Urbano CRNP [address] [place] [address] 09/02/19 25 3:30 PM EDT Procedure Only Urology, [facility] [address] [place] [address] Enrique Wall MD [address] [place] [address] 12/15/19 3:30 PM EDT Office Visit Cardiology, [facility] [address] [place] [address] Kassandra Sam CRNP 400 [facility] [place] [address] 01/19/20 3:00 PM EDT Office Visit Family Practice [facility] 132 [facility] [place] [address] Bandar Bailon DO 132 [facility] [place] [address] Scheduled Orders Name Type Priority Associated Diagnoses [...] this encounter Medical Devices Implanted Type Area Equipment Operating Engineer Device Identifier Shelf Expiration Date Model / Serial / Lot Graft Lyoplnt 2.5x2.5cm 1x1 - [id number] Implanted:Qty: 1 on 03/07/2022 by Valeriano Hathaway MD at [place] [facility] [place] : AESCULAP [id number] 10/20/2026 [id number] / [id number] / [id number] Graft Lyoplnt 2.5x2.5cm 1x1 - [id number] Implanted:Qty: 1 on 03/07/2022 by Valeriano Hathaway MD at [place] [facility] [place] : AESCULAP [id number] 10/20/2026 [id number] / [id number] / [id number] documented as of this encounter Visit Diagnoses [...] the patient have Health Care Power of Certified Medical Records Coder? No * Full Code Date Activated Date [...] Directives occurred with: Not Discussed Care Teams Ice Plant Operator Relationship Specialty Start Date End Date Bandar Bailon DO [address] [place] [address] PCP - General Family Medicine 10/10/20 documented as of this encounter
--- OUTSIDE RECORDS SUMMARY | 2024-05-10 05:45 | External Medical Summary | Summary of Care ---
Author Name Unknown Organization [facility] Address [address] [place] [address] Phone [phone] Care Team Providers Care Infantry Operations Specialist Name Role Phone UvaldoDharmeshjayla Garrisonpriyanka Primary Care Provider Reason for Visit * Reason Onset Date Comments Order Request 03/09/2024 MRI SELLA TURCIC A W WO CONTRAST - Need orders faxed to [facility]. Encounter Details Date Type Department Care Team (Late st Contact Info) Description 03/09/2024 Telephone [facility] [address] [place] [address] Sujit Shaikh PA-C [address] [place] [address] Order Request (MRI SELLA TURCICA [...] (=3 months supply). [facility] at [address] [place] [address], [address], [place] [address]. 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 Increased risk for Long QT Syndrome. Cardiac [...] mRNA, LNP-s, No Pre serve, 2-Dose Series ([employer]) 04/26/2021,10/20/2020,09/27/2020 COVID-19, MRNA-LNP, 23-24, P F, 51 [...] encounter Miscellaneous Notes * Telephone Encounter - Kim Collins OSA - 03/09/2024 11:44 AM EDT Pt wants to go to [facility] for closer availability. Would you mind faxing the MRI Sella Turcica W/WO Contrast order to their location? Thank you, Radiology Scheduling documented in this encounter Plan of Treatment Upcoming Encounters Date Type Department Care Team (Latest Contact Info) Description 04/28/2024 9:00 AM EST Hospital Encounter ENDO [facility], Endoscopy Room [facility] [address] [place] [address] Delta Rodriguez MD [address] [place] [address] 04/28/2024 9:00 AM EST - 04/28/2024 9:30 AM EST Surgery ENDO [facility], Endoscopy Room [facility] [address] [place] [phone] Delta Rodriguez MD [address] [place] [address] ESOPHAGOGASTRODUODENOSCOPY (EGD), FLEXIBLE, TRANSORAL, DIAGNOSTIC 05/05/2024 3:30 PM EST Office Visit Otolaryngology/H ead & Neck/Facial Plastic Surgery [address] [place] [facility] [place] [address] Ede Vieira MD [address] [facility] [place] [address] 05/12/2024 8:40 AM EST Office Visit Pulmonary Medicine, [facility] [address] [facility] [place] [address] Rigoberto Lassiter MD [address] [place] [address] 07/20/2024 3:00 PM EST Office Visit [facility] [address] [facility] [place] [address] Torri Urbano CRNP 132 [facility] [place] [address] 09/01/2024 3:30 PM EDT Procedure Only Urology, [facility] [address] [facility] [place] [address] Enrique Wall MD [address] [place] [address] 12/14/2024 3:30 PM EDT Office Visit Cardiology, [facility] [address] [facility] [place] [address] Kassandra Sam CRNP 400 [facility] [place] [address] 01/18/2025 3:00 PM EDT Office Visit [facility] [address] [facility] [place] [address] Bandar Bailon DO 132 [facility] [place] [address] Scheduled Procedures Name Priority Associated Diagnoses Date/Ti [...] this encounter Medical Devices Implanted Type Area Funeral Location Manager Device Identifier Shelf Expiration Date Model / Serial / Lot Graft Lyoplnt 2.5x2.5cm 1x1 - [id number] Implanted:Qty: 1 on 03/07/2022 by Valeriano Hathaway MD [place] [facility] [place] : AESCULAP [id number] 10/20/2026 [id number] / [id number] / [id number] Graft Lyoplnt 2.5x2.5cm 1x1 - [id number] Implanted:Qty: 1 on 03/07/2022 by Valeriano Hathaway MD at [place] [facility] [place] : AESCULAP [id number] 10/20/2026 [id number] / [id number] / [id number] documented as of this encounter Advance Directives [...] the patient have Health Care Power of Wine Steward? No * Full Code Date Activated Date [...] Directives occurred with: Not Discussed Care Teams Infantry Operations Specialist Relationship Specialty Start Date End Date Bandar Bailon DO [address] [place] [address] PCP - General Family Medicine 10/10/20 documented as of this encounter
--- OUTSIDE RECORDS SUMMARY | 2024-05-10 05:45 | External Medical Summary | Summary of Care ---
Author Name Unknown Organization [facility] Address [address] [facility] [address] Phone [phone] Care Team Providers Care Commercial Lines Account Manager Name Role Phone Bandar Bailon DO Primary Care Provider Reason for Visit * Reason Comments Medication Refill Encounter Details Date Type Department Care Team (Late st Contact Info) Description 03/03/2024 Refill Gastroenterology, [facility] [address] [place] [address] Efrain [place] CRNP [address] [place] [address] Allergies Active Allergy Reactions Criticality Noted Date Comments Sulfamethoxazole-Trimet hoprim Itching 07/16/2021 Pt noted total body itching within one hour of first dose. Took benedryl and inhaler and stopped med. Codeine Other (Please comment) Medium 04/23/2017 Allergic reaction Other reaction(s): UNSURE REACTION - HAPPENED A CHILD Sulfa Antibiotics High 05/22/2022 Other reaction(s): Swelling of Lip/Tongue/Throat documented as of this encounter (statuses as of 03/05/2024) Medications Medication Sig Dispensed Refills Start Date [...] each (=3 months supply). [facility] at [address] [place] [address], [facility] [address], [place] [address]. 1 g 3 Active Mupirocin 2 % External Ointment (Bactroban) Apply to affected toenail sites once daily. Cover with dry bandage. 22 g 3 Active Atorvastatin Calcium 20 MG Oral Tablet [...] at bedtime. 90 Tablet 3 3 Active Hydrocortisone 5 MG Oral Tablet (Cortef) take 2 tablets in the morning , 1 tablet at lunch and 1 tablet at supper, double or triple dose during sickness 400 Tablet 1 3 Active Vitamin D3 20 MCG (800 [...] in the morning. 5 Tablet 4 Active Famotidine 40 MG Oral Tablet (Pepcid) Take 1 tablet by mouth daily. 90 Tablet 1 4 Active Famotidine 40 MG Oral Tablet (Pepcid) Take 1 tablet by mouth daily. 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 Increased risk for Long QT Syndrome. 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 Asthma, mild persistent 04/29/2012 Overview: Allergic component ROBERT (obstructive sleep apnea) 02/01/2010 Overview: documented as of this encounter (statuses as of 03/05/2024) Resolved Problems Problem Noted Date Diagnosed Date [...] as of this encounter (statuses as of 03/05/2024) Immunizations Name Administration Dates Next Due COVID-19 mRNA, LNP-s, No Pre serve, 2-Dose Series ([employer]) 04/26/2021,10/20/2020,09/27/2020 COVID-19, MRNA-LNP, 23-24, P F, 51 [...] encounter Miscellaneous Notes * Telephone Encounter - [place] RPh - 03/05/2024 9:01 AM EDTSigned Prescriptions: Disp Refills Famotidine 40 MG Oral Tablet (Pepcid) 90 Tab*1 Sig: Take 1 tablet by mouth daily. Authorizing Provider: EFRA[place] User: [place] * Telephone Encounter - Jessica Valdez, staff midwife/apprenticeship director - 03/04/2024 4:19 PM EDT Did you pend patient's preferred pharmacy and medication before forwarding?yes Pharmacy: [facility] Pending Prescriptions: Disp Refills Famotidine 40 MG Oral Tablet (Pepcid) 90 Tab*1 Sig: Take 1 tablet by mouth daily. Last Visit: 11/12/2023 (in office), Visit date not found (telemedicine) Next Visit: Visit date not found If no future appointments scheduled, and last appointment is greater than a year ago, please schedule patient for a follow-up appointment Last date the medication was ordered: 04/10/23 Is this request for a controlled substance?No [...] 03/09/20 10:00 AM EDT Telemedicine Neuroendocrine , [place] [address] [place] [address] Clinic, Neuroendocrine Multidisciplinary [address] [place] [address] 03/17/20 8:40 AM EDT Office Visit Family Practice [facility] [address] [place] [address] Anna Brito DO [address] [place] [address] 04/28/20 9:00 AM EST Hospital Encounter ENDO [facility], Endoscopy Room [facility] [address] [place] [phone] Delta Rodriguez MD [address] [place] [address] 04/28/20 9:00 AM EST - 04/28/20 9:30 AM EST Surgery ENDO [facility], Endoscopy Room [facility] [address] [place] [phone] Delta Rodriguez MD 132 [facility] [place], [place] [address] ESOPHAGOGASTRODUODENOSCOPY (EGD), FLEXIBLE, TRANSORAL, DIAGNOSTIC 05/05/20 24 3:30 PM EST Office Visit Otolaryngology /Head & Neck/Facial Plastic Surgery [address] [place] [facility] [place] [address] Ede Vieira MD [address] [place] [facility] [address] 05/12/20 8:40 AM EST Office Visit Pulmonary Medicine, [facility] 132 [facility] [place] [address] Rigoberto Lassiter MD [address] [place] [facility] [place] [address] 07/20/19 3:00 PM EST Office Visit Family Practice [facility] 132 [facility] [place] [address] Torri Urbano CRNP [facility] [place] [address] 09/02/19 25 3:30 PM EDT Procedure Only Urology, [facility] 132 [facility] [place] [address] Enrique Wall MD [address] [place] [address] 12/15/19 25 3:30 PM EDT Office Visit Cardiology, [facility] 132 [facility] [place] [address] Kassandra Sam CRNP [address] [place] [address] [place] [address] 01/19/20 3:00 PM EDT Office Visit Family [facility] [address] [place] [address] Bandar Bailon, [address] [place] [address] Scheduled Procedures Name Priority Associated Diagnoses Date/Ti [...] this encounter Medical Devices Implanted Type Area Copping Machine Operator Device Identifier Shelf Expiration Date Model / Serial / Lot Graft Lyoplnt 2.5x2.5cm 1x1 - [id number] Implanted:Qty: 1 on 03/07/2022 by Valeriano Hathaway MD at [place] [facility] [place] B [place] : AESCULAP [id number] 10/20/2026 [id number] / [id number] / [id number] Graft Lyoplnt 2.5x2.5cm 1x1 - [id number] Implanted:Qty: 1 on 03/07/2022 by Valeriano Hathaway MD at OR [facility] [place] B K[place] : AESCULAP [id number] 10/20/2026 [id number] / [id number] / [id number] documented as of this encounter Advance Directives [...] the patient have Health Care Power of Strap Making Machine Operator? No * Full Code Date [...] Directives occurred with: Not Discussed Care Teams Commercial Lines Account Manager Relationship Specialty Start Date End Date Bandar Bailon DO [address] [place] [address] PCP - General Family Medicine 10/10/20 documented as of this encounter
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
--- OUTSIDE RECORDS SUMMARY | 2024-05-10 05:45 | External Medical Summary | Summary of Care ---
Author Name Unknown Organization [facility] Address [address] [place] [address] Phone [phone] Care Team Providers Care Windows Architect Name Role Phone Bandar Bailon Primary Care Provider Reason for Referral * Precert (Within 10 days (routine)) - Pending Review Specialty Diagnoses / Procedures Referred By Contac t Referred To Contact Radiology Diagnoses Chronic radicular lumbar pain DDD (degenerative disc disease), lumbar Procedures MRI T SPINE WO CONTRAST Arik Santana DO [address] [place] [address] Referral ID Status Reason Start Date Expiration Date V isits Requested Visits Authorized [id number] Pending Review 03/09/2024 999 999 * Evaluate & Treat - Unlimited Visits (Within 10 days (routine)) - Authorized Specialty Diagnoses / Procedures Referred By Contac t Referred To Contact Psychology Diagnoses Chronic radicular lumbar pain DDD (degenerative disc disease), lumbar Arik Santana DO [address] [place] [address] Filomena Lim PsyD [address] [place] [address] Referral ID Status Reason Start Date Expiration Date Visits Requested Visits Authorized [id number] Authorized Specialty Services Required 03/08/2024 999 999 [...] Info) Description 03/03/2024 Telephone Interventional Pain Center, [facility] [address] [place] [address] Arik Santana DO [address] [place] [...] as of this encounter (statuses as of 03/08/2024) Medications Medication Sig Dispensed Refills Start Date [...] each (=3 months supply). [facility] at [address] [place] [address], [facility] [address], [place] [address]. 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 Increased risk for Long QT Syndrome. 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 Asthma, mild persistent 04/29/2012 Overview: Allergic component ROBERT (obstructive sleep apnea) 02/01/2010 Overview: documented as of this encounter (statuses as of 03/08/2024) Resolved Problems Problem Noted Date Diagnosed Date [...] as of this encounter (statuses as of 03/08/2024) Immunizations Name Administration Dates Next Due COVID-19 mRNA, LNP-s, No Pre serve, 2-Dose Series ([employer]) 04/26/2021,10/20/2020,09/27/2020 COVID-19, MRNA-LNP, 23-24, P F, [...] 24 10:00 AM EDT Telemedicine Neuroendocrine , [place] [address] [place] [address] Clinic, Neuroendocrine Multidisciplinary [address] [place] [address] 03/17/20 24 8:40 AM EDT Office Visit [facility] [address] [place] [address] Anna Brito DO [address] [address] 04/28/20 24 9:00 AM EST Hospital Encounter ENDO [facility], Endoscopy Room [facility] [address] [place] [phone] Delta Rodriguez MD [address] [place] [address] 04/28/20 24 9:00 AM EST - 04/28/20 9:30 AM EST Surgery ENDO [facility], Endoscopy Room [facility] [address] [place] [phone] Delta Rordiguez MD [address] [place] [address] ESOPHAGOGASTRODUODENOSCOPY (EGD), FLEXIBLE, TRANSORAL, DIAGNOSTIC 05/05/20 3:30 PM EST Office Visit Otolaryngology /Head & Neck/Facial Plastic Surgery [address] [place] [address] Ede Vieira MD [address] [place] [address] 05/12/20 8:40 AM EST Office Visit Pulmonary Medicine, [facility] 132 [facility] [place] [address] Rigoberto Lassiter MD [address] [place] [address] 07/20/19 3:00 PM EST Office Visit [facility] Practice [facility] [place] [address] Torri Urbano CRNP [address] [place] [address] 09/02/19 25 3:30 PM EDT Procedure Only Urology, [facility] [address] [place] [address] Enrique Wall MD [address] [place] [id number] 12/15/19 3:30 PM EDT Office Visit Cardiology, [facility] 132 [facility] [place] [address] Kassandra Sam CRNP [address] [place] [address] 01/19/20 3:00 PM EDT Office Visit Family Practice [facility] 132 [facility] [place] [address] Bandar Bailon, 132 [facility] [place] [address] Scheduled Orders Name Type Priority Associated Diagnoses [...] this encounter Medical Devices Implanted Type Area Wire Preparation Machine Tender Device Identifier Shelf Expiration Date Model / Serial / Lot Graft Lyoplnt 2.5x2.5cm 1x1 - [id number] Implanted:Qty: 1 on 03/07/2022 by Valeriano Hathaway MD at OR [facility] B [place] : ODALYSCULAP [id number] 10/20/2026 [id number] / [id number] / [id number] Graft Lyoplnt 2.5x2.5cm 1x1 - [id number] Implanted:Qty: 1 on 03/07/2022 by Valeriano Hathaway MD at OR [facility] B [place] : AESCULAP [id number] 10/20/2026 [id number] / [id number] / [id number] documented as of this encounter Visit Diagnoses [...] the patient have Health Care Power of Vinyl Dipper? No * Full Code Date Activated Date [...] Directives occurred with: Not Discussed Care Teams Windows Architect Relationship Specialty Start Date End Date Bandar Bailon DO [address] [place] [address] PCP - General Family Medicine 10/10/20 documented as of this encounter
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
--- OUTSIDE RECORDS SUMMARY | 2024-05-10 05:46 | External Medical Summary | Summary of Care ---
Author Name Unknown Organization [facility] Address [address] [place] [address] Phone [phone] Care Team Providers Care Robot Programmer Name Role Phone Bandar Bailon DO Primary Care Provider Reason for Visit * Reason Comments Acute Patient presents in office today for ongoing concerns with chest pain, SOB, dizziness -- ongoing for quite awhile. Encounter Details Date Type Department Care Team (Late st Contact Info) Description 02/26/2024 8:20 AM EDT [facility] [address] [facility] [place] [address] Torri Urbano CRNP [address] [facility] [place] [address] Chest pain, unspecified type*; SOB (shortness of breath); Dizziness; Cardiac pacemaker in situ; Tachy-dell syndrome (HCC); Mild persistent asthma without complication; Bilateral impacted cerumen Allergies Active Allergy Reactions Criticality Noted Date Comments Sulfamethoxazole-Trimet hoprim Itching 07/16/2021 Pt noted total body itching within one hour of first dose. Took benedryl and inhaler and stopped med. Codeine Other (Please comment) Medium 04/23/2017 Allergic reaction Other reaction(s): UNSURE REACTION - HAPPENED A CHILD Sulfa Antibiotics High 05/22/2022 Other reaction(s): Swelling of Lip/Tongue/Throat documented as of this encounter (statuses as of 02/26/2024) Medications Medication Sig Dispensed Refills Start Date [...] (=3 months supply). [facility] at [address] [place] [address], [address], [place] [address]. 1 g 09/13/19 23 Active Mupirocin 2 % External Ointment (Bactroban) Apply to affected toenail sites once daily. Cover with dry bandage. 22 g 11/14/19 23 Active Atorvastatin Calcium 20 MG [...] bedtime. 90 Tablet 3 03/13/20 23 Active Hydrocortisone 5 MG Oral Tablet (Cortef) take 2 tablets in the morning , 1 tablet at lunch and 1 tablet at supper, double or triple dose during sickness 400 Tablet 1 03/14/20 23 Active Vitamin D3 20 MCG (800 UNIT) Oral Tablet Take 1capsule by mouth in the morning. 90 Tablet 3 04/08/20 23 Active Diclofenac Sodium 50 MG Oral Tablet Delayed Release (Voltaren)Indicat ions:Lumbar degenerative disc disease,Lumbar radiculopathy Take 1 Tablet by mouth in the morning and 1 Tablet before bedtime. With food.. 180 Tablet 04/08/20 23 Active Famotidine 40 MG Oral Tablet (Pepcid) Take 1 tablet by mouth daily. 90 Tablet 1 04/10/20 23 Active Dicyclomine HCl 10 MG Oral [...] bedtime. 90 Tablet 3 06/24/19 24 Active Pregabalin 150 MG Oral Capsule (Lyrica)Indicatio ns:Hereditary and idiopathic peripheral neuropathy Take 1 capsule by mouth in the morning and 2 capsules by mouth at bedtime 90 Capsule 2 09/17/19 24 Active Syringe/Needle (Disp) 22G X 1-1/2" [...] for Wheezing. 54 g 3 01/29/20 24 Active Full Kit Nebulizer Set [...] by mouth in the morning. 5 Tablet 02/26/20 24 Active predniSONE 20 MG Oral Tablet (Deltasone) Take 1 Tablet by mouth in the morning for 5 days. 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 Increased risk for Long QT Syndrome. 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 Asthma, mild persistent 04/29/2012 Overview: Allergic component ROBERT (obstructive sleep apnea) 02/01/2010 Overview: documented as of this encounter (statuses as of 02/26/2024) Resolved Problems Problem Noted Date Diagnosed Date [...] as of this encounter (statuses as of 02/26/2024) Immunizations Name Administration Dates Next Due COVID-19 mRNA, LNP-s, No Pre serve, 2-Dose Series (Nautal) 04/26/2021,10/20/2020,09/27/2020 COVID-19, MRNA-LNP, 23-24, P F, 50 [...] Taken Comments Blood Pressure - - Pulse 71 02/26/2024 7:58 AM EDT Temperature - - Respiratory Rate 18 02/26/2024 7:58 AM EDT Oxygen Saturation 99% 02/26/2024 7:58 AM EDT Inhaled Oxygen Concentration - - Weight 83 kg (183 lb) 02/26/2024 7:58 AM EDT Height 168.5 cm (5' 6.34") 02/26/2024 7:58 AM ED T Body Mass Index 29.23 02/26/2024 7:58 AM EDT documented in this encounter Functional Status Functional Status Response Date of Assess ment Do you have serious difficul ty walking or climbing stairs? (5 years old or older) Yes-as per pt he gets short of breathe 03/08/2022 documented as of this encounter Progress Notes * Torri Urbano CRNP - 02/26/2024 7:56 AM EDT Acute Family Medicine Visit CC: Chief Complaint Patient presents with Acute Patient presents in office today for ongoing concerns with chest pain, SOB, dizziness -- ongoing for quite awhile. History of Present Illness: Félix De La O is a 69 year old male presenting with complaints of chest pain, sob and dizziness. He reports he has been having chest heaviness. This comes and goes for the last month. He notes this is worse when exerting himself. Gets blurred vision when chest tightness is occurring. Denies heart burn. The sob is always accompanied by heaviness. He has existing left shoulder pain. 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 Tobacco Use Smoking status: Never Smokeless tobacco: Never Vaping Use Vaping status: Never Used Substance and Sexual Activity Alcohol use: Yes Comment: Occassional: varies Drug use: No Sexual activity: Not on file Other Topics Concern Not on file Social History Narrative Works for [employer] Social Determinants of Health Financial Resource Strain: [...] on file Housing Stability: Not on file PMH: Past Medical History: Diagnosis Date Anesthesia complication 10/13/2017 Breathing issues Asthma Benign neoplasm of colon 05/05/2012 COLONOSCOPY FLEXIBLE PROXIMAL DIAGNOSTIC performed by Jerod Asencio MD at OR [facility],path shows active Crohn's , benign [...] obstructive Tachy-dell syndrome (HCC) 10/20/2019 Past Surgical History: Procedure Laterality Date COLONOSCOPY W/ BIOPSY (RECTUM) 03/05/2010 bxs COLONOSCOPY, DIAGNOSTIC (RECTUM) 05/05/2012 COLONOSCOPY FLEXIBLE PROXIMAL DIAGNOSTIC performed by Jerod Asencio MD at OR [facility],path shows active Crohn's , benign polyps repeat in 3 years COLONOSCOPY, DIAGNOSTIC (RECTUM) 11/03/2013 normal bx/COLONOSCOPY FLEXIBLE PROXIMAL DIAGNOSTIC performed by Jerod Asencio MD at ENDOSCOPY [facility] COLONOSCOPY, DIAGNOSTIC (RECTUM) 04/23/2016 normal bx, diverticulosis/[facility] COLONOSCOPY, DIAGNOSTIC (RECTUM) 11/24/2018 adenomatous polyp, diverticulosis, repeat 5 yrs/COLONOSCOPY FLEXIBLE PROXIMAL DIAGNOSTIC performed by Delta Rodriguez MD at ENDOSCOPY [facility] COLONOSCOPY, DIAGNOSTIC (RECTUM) 02/25/2023 poor prep/hemorrhoids/diverticulosis/recall 5 years/COLONOSCOPY FLEXIBLE PROXIMAL DIAGNOSTIC performed by Jovani Carver MD at ENDOSCOPY [facility] [id number] GRAFT Bilateral 03/07/2022 GRAFT DERMA FAT FASCIA performed by Ede Vieira MD at OR [facility] DESTROY LUMBAR SACRAL NERVE IMAGING SINGLE 09/01/2017 DESTROY LUMBAR SACRAL NERVE IMAGING SINGLE performed by Jc Muñoz, DO at OR [facility] DRAINAGE PILONIDAL CYST,SIMPLEE 1970's EGD, FLEXIBLE, DIAGNOSTIC 04/23/2016 H pylori/[facility] EGD, FLEXIBLE, DIAGNOSTIC 11/24/2018 normal bx/ESOPHAGOGASTRODUODENOSCOPY (EGD), FLEXIBLE, TRANSORAL, DIAGNOSTIC performed by Delta Rodriguez MD at ENDOSCOPY [facility] EGD, FLEXIBLE, DIAGNOSTIC N/A 05/22/2022 normal/EGD/MN INFORMATION 07/20/2013 07/20/2013 excision of pilonidal cyst Dr [place] [facility] Bagley INJECT DX/THER SUBSTANCE INTERLAMINAR LUMBAR/SACRAL W IMAGE GUIDE 12/13/2019 INJECTION SPINE LUMBAR OR SACRAL performed by Jc Muñoz, DO at OR [facility] INJECT DX/THER SUBSTANCE INTERLAMINAR LUMBAR/SACRAL W IMAGE GUIDE 06/19/2020 INJECTION SPINE LUMBAR OR SACRAL performed by Jc Muñoz, DO at OR [facility] INJECT DX/THER SUBSTANCE INTERLAMINAR LUMBAR/SACRAL W IMAGE GUIDE 12/26/2020 INJECTION SPINE LUMBAR OR SACRAL performed by Jc Mickey Muñoz, DO at OR [facility] INJECT DX/THER SUBSTANCE INTERLAMINAR LUMBAR/SACRAL W IMAGE GUIDE 09/20/2021 INJECTION SPINE LUMBAR OR SACRAL performed by Jc Muñoz, DO at OR [facility] INJECT DX/THER SUBSTANCE INTERLAMINAR LUMBAR/SACRAL W IMAGE GUIDE 10/09/2022 INJECTION SPINE LUMBAR OR SACRAL performed by Jc Muñoz, DO at OR [facility] INJECT DX/THER SUBSTANCE INTERLAMINAR LUMBAR/SACRAL W IMAGE GUIDE 02/12/2023 INJECTION SPINE LUMBAR OR SACRAL performed by Jc Muñoz DO at OR [facility] INJECT DX/THER SUBSTANCE INTERLAMINAR LUMBAR/SACRAL W IMAGE GUIDE 11/24/2023 INJECTION SPINE LUMBAR OR SACRAL performed by Arik Santana DO at OR [facility] INSERT HEART ELECTRODE, DUAL CHAMBR 01/14/2018 L-/S-SPINE PARAVERTEBRAL FACET INJ,1 LEVEL 03/10/2017 L-/S-SPINE PARAVERTEBRAL FACET INJ, 1 LEVEL performed by Jc Muñoz DO at OR [facility] L-/S-SPINE PARAVERTEBRAL FACET INJ,1 LEVEL 05/22/2017 L-/S-SPINE PARAVERTEBRAL FACET INJ, 1 LEVEL performed by Jc Muñoz DO at OR [facility] LAPAROSCOPY;APPENDECTOMY 12/08/2018 MISCELLANEOUS ORDER ([facility] ONLY) 1970's left hand burn repaired MISCELLANEOUS ORDER ([facility] ONLY) Drainage of olecarnon bursitis NASAL SURGERY PROCEDURE NEC Bilateral 03/07/2022 UNLISTED PROCEDURE NOSE performed by Ede Vieira MD at OR [facility] NASAL/SINUS ENDOSCOPY, SURGICAL 2014 NEUROEND INT,EXC PIT TUMOR N/A 03/07/2022 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 performed by Valeriano Hathaway MD at OR [facility] REMOVAL OF PROSTATE (TURP) N/A 05/28/2021 TRANSURETHRAL RESECTION PROSTATE ELECTROSURGICAL performed by Citlali Gordon MD at OR [facility] REMOVAL OF TURBINATE BONES Bilateral 03/07/2022 SUBMUCOUS RESECTION INFERIOR TURBINATE performed by Ede Vieira MD at OR [facility] REPAIR INITIAL INGUINAL HERNIA REDUCIBLE AGE 5 OR MORE 08/14/2010 Right Inguinal hernia repair with mesh; excision of cord lipoma Dr Christianson [facility] 08/14/2010 REPAIR OF NASAL SEPTUM Bilateral 03/07/2022 SEPTOPLASTY performed by Ede Vieira MD at OR [facility] SINUS SURGERY PROCEDURE NEC Bilateral 03/07/2022 UNLISTED PROCEDURE ACCESSORY SINUS performed by Ede Vieira MD at OR [facility] STEREOTACTIC CRANIAL EXTRADURAL NAVIGATION Bilateral 03/07/2022 STEREOTACTIC CRANIAL EXTRADURAL NAVIGATION performed by Ede Vieira MD at OR [facility] STEREOTACTIC CRANIAL INTRADURAL NAVIGATION N/A 03/07/2022 STEREOTACTIC CRANIAL INTRADURAL NAVIGATION performed by Valeriano Hathaway MD at OR [facility] Current Outpatient Medications Medication Sig Dispense Refill BD Luer-Eli Syringe 22G X 1" 3 ML (Syringe/Needle (Disp)) FOR USE WITH B12 INJECTIONS 3 Each 3 Cyanocobalamin 1000 MCG/ML Injection Solution (Cyanocobalamin) INJECT 1,000 MCG (1ML) INTRAMUSCULARLY DIRECTED FOR 30 DAYS 3 mL 0 Albuterol Sulfate 0.63 MG/3ML Inhalation Nebulization Solution (Accuneb) Inhale 1 Vial via nebulizer every 6 hours as needed for Wheezing or Shortness of Breath. 360 mL 0 Albuterol Sulfate HFA 108 (90 Base) MCG/ACT Inhalation Aerosol Solution Inhale 2 Puffs by mouth every 6 hours as needed for Wheezing. 54 g 3 Full Kit Nebulizer Set Use with Nebulizer Medication EVERY SIX HOURS WHILE AWAKE as directed. Dx Code: J45.30 1 Each 3 Gbjxnkfzpga-Kqmxaodxx-Cnnqbr 200-62.5-25 MCG/ACT Aerosol Powder Breath Activated (Trelegy Ellipta) inhale one puff by mouth in the morning 60 Each 10 Potassium Chloride ER 10 MEQ Oral Capsule Extended Release TAKE ONE CAPSULE BY MOUTH IN THE MORNINGAND ONE CAPSULE BEFORE BEDTIME 180 Capsule 2 Nadolol 40 MG Oral Tablet (Corgard) Take 1 Tablet by mouth in the morning. 90 Tablet 1 cycloSPORINE 0.05 % Ophthalmic Emulsion (Restasis) place 1 drop into both eyes twice daily 180 Each3 Metoclopramide HCl 10 MG Oral Tablet (Reglan) TAKE ONE TABLET BY MOUTH THREE TIMES DAILY 30 MIN BEFORE MEALS 360 Tablet 3 Syringe/Needle (Disp) 22G X 1-1/2" 5 ML USE FOR INJECTION OF DEXAMETHASONE OR HYDROCORTISONE FOR ADRENAL CRISIS 3 Each 5 Pregabalin 150 MG Oral Capsule (Lyrica) Take 1 capsule by mouth in the morning and 2 capsules by mouth at bedtime 90 Capsule 2 rOPINIRole HCl 2 MG Oral Tablet (Requip) Take 1 Tablet by mouth at bedtime. 90 Tablet 3 Omeprazole 20 MG Oral Capsule Delayed Release (PriLOSEC) Take 1 Capsule by mouth in the morning. 90Capsule 3 Mesalamine 1.2 GM Oral Tablet Delayed Release (Lialda) take two tablets by mouth daily 180 Tablet 3 DULoxetine HCl 60 MG Oral Capsule Delayed Release Particles (Cymbalta) Take 1 Capsule by mouth in the morning. Do not cut, crush or chew. 90 Capsule 5 Famotidine 40 MG Oral Tablet (Pepcid) Take 1 tablet by mouth daily. 90 Tablet 1 Dicyclomine HCl 10 MG Oral Capsule (Bentyl) Take 1 Capsule by mouth 2 times a day as needed for Cramping. 180 Capsule 3 Diclofenac Sodium 50 MG Oral Tablet Delayed Release (Voltaren) Take 1 Tablet by mouth in the morning and 1 Tablet before bedtime. With food.. 180 Tablet 0 Vitamin D3 20 MCG (800 UNIT) Oral Tablet Take 1capsule by mouth in the morning. 90 Tablet 3 Hydrocortisone 5 MG Oral Tablet (Cortef) take 2 tablets in the morning , 1 tablet at lunch and 1 tablet at supper, double or triple dose during sickness 400 Tablet 1 levETIRAcetam 500 MG Oral Tablet (Keppra) Take 1 Tablet by mouth in the morning and 1 Tablet beforebedtime. 180 Tablet 1 Atorvastatin Calcium 20 MG Oral Tablet (Lipitor) TAKE 1 TABLET BY MOUTH IN THE MORNING 90 Tablet 1 Montelukast Sodium 10 MG Oral Tablet (Singulair) Take 1 Tablet by mouth at bedtime. 90 Tablet 3 Restasis 0.05 % Ophthalmic Emulsion Instill 1 Drop into both eyes in the morning and 1 Drop before bedtime. 180 Each 3 Mupirocin 2 % External Ointment (Bactroban) Apply to affected toenail sites once daily. Cover with dry bandage. 22 g 0 Tobramycin Powder Compounded tobramycin 40mg capsules to be added to sinus rinse twice daily. Dispense 180 of each (=3 months supply). [facility] at [address] [place] [address], [facility] [address], [place] [address]. 1 g 0 Diathrive Pen Needle 31G X 8 MM (Insulin Pen Needle) Use for b-12 injections once monthly as indicated. 30 Each 3 Calcium Carb-Cholecalciferol 600-200 MG-UNIT Oral Tablet Take by mouth 2 Tablets in the morning. 180 Tablet 3 Hydrocortisone Na Succinate PF 100 MG Injection Solution Reconstituted (Solu- Cortef) Use in emergency-adrenal crisis ACT O VIAL 2 mL 6 BiPAP every night at bedtime. (Patient not taking: Reported on 12/09/2023) Aspirin 81 MG Oral Tablet Chewable Take 1 Tablet by mouth in the morning. 34 Tab 11 OXYGEN oxygen at 2 lpm via NC during all periods of sleep 1 Each 0 Current Facility-Administered Medications Medication Dose Route Frequency Provider Last Rate Last Admin Albuterol Sulfate (Proventil) (2.5 MG/3ML) 0.083% inhalation solution 2.5 mg 2.5 mg Nebulizer Q4H PRN Ashly Parker CRNP 2.5 mg at 10/15/22 2547 Review of patient's allergies indicates: Allergen Reactions Sulfa Antibiotics Other reaction(s): Swelling of Lip/Tongue/Throat Codeine Other (Please comment) Allergic reaction Other reaction(s): UNSURE REACTION - HAPPENED A CHILD Bactrim [Sulfamethoxazole-Trimethoprim] Itching Pt noted total body itching within one hour of first dose. Took benedryl and inhaler and stopped med. Most Recent Immunizations Administered Date(s) Administered COVID-19 mRNA, LNP-s, No Preserve, 2-Dose Series (Nautal) 04/26/2021 COVID-19, MRNA-LNP, 23-24, PF, 50 MCG/0.5 mL, 12 YRS AND ABOVE, IM (MODERNA- Spikevax) 05/31/2023 Covid-19, Mrna, Lnp-s, Pf, Bivalent, 50 Mcg, IM, 12 yrs and above (Moderna) 11/04/2022 Pneumococcal Conjugate Vacc, 13 Valent (Prevnar) 03/20/2016 Pneumococcal Polysaccharide PPV23 (Pneumovax) 05/16/2021 RSV Vac., Recomb, Adjuvant, PF,0.5 Ml (Arexvy) 05/31/2023 Season Influenza, Quad, PF, Adjuvanted, 65+ Yrs, IM (FLUAD) 02/07/2020 Seasonal Influenza, PF, 6 M & above, IM , (FluLaval or Fluzone) 05/16/2021 Seasonal Influenza, Quadrivalent Hd (Fluzone Hd) 02/26/2022 Seasonal Influenza, Quadrivalent, No Preserve, IM 04/03/2023 Seasonal Influenza, Trivalent, (IIV3), with Preserv, (Fluzone) 02/21/2015 TDAP (age 10 and older)(Boostrix) 12/17/2019 TDAP, Age 7 and older, IM (Adacel) 12/13/2009 Varicella Zoster Vaccine (Adult) 01/29/2016 Zoster Vaccine Recombinant (Shingrix) 11/21/2018 Review of Systems: Review of Systems Eyes: Positive for visual disturbance. Respiratory: Positive for chest tightness, shortness of breath and wheezing. Negative for cough. Cardiovascular: Positive for chest pain. Negative for palpitations and leg swelling. Gastrointestinal: Negative for nausea. Neurological: Positive for dizziness. Physical Exam: Filed Vitals: 02/26/24 0758 Pulse: 71 Resp: 18 SpO2: 99% Weight: 83 kg (183 lb) Height: 1.685 m (5' 6.34") Physical Exam HENT: Head: Normocephalic. Right Ear: There is impacted cerumen. Left Ear: There is impacted cerumen. Cardiovascular: Rate and Rhythm: Normal rate and regular rhythm. Pulmonary: Effort: Pulmonary effort is normal. Breath sounds: Normal breath sounds. Neurological: General: No focal deficit present. Mental Status: He is alert and oriented to person, place, and time. Psychiatric: Mood and Affect: Mood normal. Behavior: Behavior normal. Thought Content: Thought content normal. Judgment: Judgment normal. Assessment and Plan: 1. Chest pain, unspecified type Intermittent heaviness Gradually worsening with exertion over the last month. EKG showing left axis deviation and BBB No acute changes Given symptoms recommend ED evaluation He is agreeable to transport himself - EKG; Future 2. SOB (shortness of breath) With hx of asthma No wheezing on exam Increase albuterol every 4 hours Add prednisone x 5 days - EKG; Future 3. Dizziness With chest pain - EKG; Future 4. Cardiac pacemaker in situ - EKG; Future 5. Tachy-dell syndrome (HCC) 6. Mild persistent asthma without complication 7. Bilateral impacted cerumen Patient gave verbal consent. Bilateral ear lavage completed. EAC and TM intact s/p procedure - REMOVAL IMPACTED CERUMEN IRRIGATION/LAVAGE, UNILAT I have advised the patient to call our office incase of any worsening or new symptoms. I spent a total of 40-54 minutes (exact time 54 mins) on the date of service in preparation, delivery, and documentation of the care provided to Félix De La O excluding any time spent in the performance of separately billed services. Sarah, DIEGO, ANIKA [facility] documented in this encounter Nursing Notes * Leslie Del Angel MED ASSIST - 02/26/2024 7:56 AM EDT The patient has been properly identified by confirmation of name and date of . Chief Complaint Patient presents with Acute Patient presents in office today for ongoing concerns with chest pain, SOB, dizziness -- ongoing for quite awhile. documented in this encounter Miscellaneous Notes * Addendum Note - Torri Urbano CRNP - 02/26/2024 11:29 AM EDTAddended by: TORRI URBANO on: 02/26/2024 11:29 AM Modules accepted: Orders documented in this encounter Plan of Treatment Upcoming Encounters Date Type Department Care Team (Late st Contact Info) Description 03/03/20 2:00 PM EDT Procedure Only Urology, [facility] [address] [place] [address] Enrique Wall MD [address] [place] [address] 03/05/20 7:45 AM EDT Hospital Encounter OR [facility], Operating Room [facility] [address] [phone] Veronica Abraham MD [address] [place] [address] 03/05/20 7:45 AM EDT - 03/05/20 8:59 AM EDT Surgery OR [facility], Operating Room [facility] [address] [phone] Veronica Abraham MD [address] [address] REPAIR INITIAL INGUINAL HERNIA REDUCIBLE AGE 5 OR MORE 03/09/20 10:00 AM EDT Telemedicine Neuroendocrine , [facility] [address] [place] [address] Clinic, Neuroendocrine Multidisciplinary [address] [place] [facility] [place] [address] 03/17/20 8:40 AM EDT Office Visit Family Practice [facility] [address] [place] [address] Anna Brito DO [address] [place] [address] 03/17/20 10:30 AM EDT Office Visit General Surgery, [facility] [address] [place] [address] Veronica Abraham MD [address] [place] [address] 04/28/20 9:00 AM EST Hospital Encounter ENDO [facility], Endoscopy Room [facility] [address] [place] [phone] Delta Rodriguez MD [address] [place] [address] 04/28/20 24 9:00 AM EST - 04/28/20 24 9:30 AM EST Surgery ENDO [facility], Endoscopy Room [facility] [address] [place] [phone] Delta Rodriguez MD [address] [place] [address] ESOPHAGOGASTRODUODENOSCOPY (EGD), FLEXIBLE, TRANSORAL, DIAGNOSTIC 05/05/20 24 3:30 PM EST Office Visit Otolaryngology /Head & Neck/Facial Plastic Surgery [address] [place] [facility] [place] [address] Ede Vieira MD [address] [place] [address] 05/12/20 8:40 AM EST Office Visit Pulmonary Medicine, [facility] [address] [place] [address] Rigoberto Lassiter MD [address] [place] [address] 07/20/19 3:00 PM EST Office Visit [facility] [address] [facility], [place] [address] Torri Urbano CRNP [facility] [address] 12/15/19 3:30 PM EDT Office Visit Cardiology, [facility] [address] [place] [address] Kassandra Sam CRNP [address] [place] [address] 01/19/20 3:00 PM EDT Office Visit [facility] [address] [facility] [place] [address] Bandar Bailon [facility] [address] [facility] [address] Scheduled Orders Name Type Priority Associated Diagnoses Orde r Schedule EKG EKG Routine Chest pain, unspecified type SOB (shortness of breath) Dizziness Cardiac pacemaker in situ Expected: 02/26/2024 (Approximate), Expires: 03/27/2025 REMOVAL IMPACTED CERUMEN IRRIGATION/LAVAGE, UNILAT Procedures Routine Bilateral impacted cerumen Ordered: 02/26/2024 Scheduled Procedures Name Priority Associated Diagnoses Date/Ti [...] this encounter Medical Devices Implanted Type Area Qa Developer Device Identifier Shelf Expiration Date Model / Serial / Lot Graft Lyoplnt 2.5x2.5cm 1x1 - [id number] Implanted:Qty: 1 on 03/07/2022 by Valeriano Hathaway MD at OR [facility] B KIRKPATRICK : AESCULAP [id number] 10/20/2026 [id number] / [id number] / [id number] Graft Lyoplnt 2.5x2.5cm 1x1 - [id number] Implanted:Qty: 1 on 03/07/2022 by Valeriano Hathaway MD at OR [facility] B [employer] : AESCULAP [id number] 10/20/2026 [id number] / [id number] / [id number] documented as of this encounter Visit Diagnoses Diagnosis Left inguinal hernia- Primary Inguinal hernia without mention of obstruction or gangrene, unilateral or unspecified, (not specified as recurrent) Chest pain, unspecified type- Primary SOB (shortness of breath) Shortness of breath Dizziness Dizziness and giddiness Cardiac pacemaker in situ Tachy-dell syndrome (HCC) Sinoatrial node dysfunction Mild persistent asthma without complication Unspecified asthma Bilateral impacted cerumen Impacted cerumen Left inguinal hernia Inguinal hernia without mention [...] the patient have Health Care Power of Film Casting Operator? No * Full Code Date Activated [...] Directives occurred with: Not Discussed Care Teams Robot Programmer Relationship Specialty Start Date End Date Bandar Bailon DO [address] [place] [address] PCP - General Family Medicine 10/10/20 documented as of this encounter
--- OUTSIDE RECORDS SUMMARY | 2024-05-10 05:46 | External Medical Summary | Summary of Care ---
Author Name Unknown Organization [facility] Address [address] [facility] [address] Phone [phone] Care Team Providers Care Curb Machine Operator Name Role Phone Bandar Bailon DO Primary Care Provider Reason for Visit * Reason Onset Date Comments Chest Pain 02/25/2024 Encounter Details Date Type Department Care Team (Late st Contact Info) Description 02/25/2024 Telephone Family Practice [facility] [address] [facility] [place] [address] Torri Urbano CRNP [address] [place] [address] Chest Pain Allergies Active Allergy Reactions Criticality Noted Date [...] each (=3 months supply). [facility] at [address] [place] [address], [place] [address], [place] [address]. 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 Increased risk for Long QT Syndrome. Cardiac [...] mRNA, LNP-s, No Pre serve, 2-Dose Series ([employer]) 04/26/2021,10/20/2020,09/27/2020 COVID-19, MRNA-LNP, 23-24, P F, 51 [...] encounter Miscellaneous Notes * Telephone Encounter - Torri Urbano CRNP - 02/26/2024 6:52 AM EDT Noted. DIEGO Smith, ANIKA [facility] * Telephone Encounter - Citlali Dunne LPN - 02/25/2024 3:55 PM EDT Per verbal from Torri Urbano, pt has cardiac history and should go to ER for the symptoms that he ishaving. His vm box is full and I was unable to leave a message. S/w I think daughter or sister, Nancy. She will try to reach him and agrees maybe he should just go to ER. I also left a detailed message on Anu's vm with same information (per Nancy, she is local), should go to ER, and if he does come, that is fine, but depending on what comes of visit, he may be going to ER from our office anyways. * Telephone Encounter - Torri Urbano CRNP - 02/25/2024 3:51 PM EDT Reviewed disposition for appt. Recommend immediate ED evaluation for chest heaviness and dizziness.This can not wait until tomorrow DIEGO Smith, ANIKA [facility] documented in this encounter Plan of Treatment Upcoming Encounters Date Type Department Care Team (Late st Contact Info) Description 02/26/20 8:20 AM EDT Office Visit Family Practice [facility] [address] [facility] [place] [address] Torri Urbano CRNP [address] [place] [address] 03/03/20 2:00 PM EDT Procedure Only Urology, [facility] [address] [place] [address] Enrique Wall MD [address] [place] [address] 03/05/20 7:45 AM EDT Hospital Encounter OR [facility], Operating Room [facility] [address] [place] [phone] Veronica Abraham MD [address] [place] [address] 03/05/20 7:45 AM EDT - 03/05/20 8:59 AM EDT Surgery [facility], Operating Room [facility] [address] [place] [phone] Veronica Abraham MD [address] [place] [address] REPAIR INITIAL INGUINAL HERNIA REDUCIBLE AGE 5 OR MORE 03/09/20 10:00 AM EDT Telemedicine Neuroendocrine , [place] [address] [place] [address] Clinic, Neuroendocrine [facility] [address] [place] [address] 03/17/20 8:40 AM EDT Office Visit Family Practice [facility] [address] [place] [address] Anna Brito DO [address] [place] [address] 03/17/20 10:30 AM EDT Office Visit General Surgery, [facility] [address] [place] [address] Veronica Abraham MD [address] [place] [address] 04/28/20 9:00 AM EST Hospital Encounter ENDO [facility], Endoscopy Room [facility] [address] [place] [address] Delta Rodriguez MD [address] [place] [address] 04/28/20 9:00 AM EST - 04/28/20 9:30 AM EST Surgery ENDO [facility], Endoscopy Room [facility] [address] [place], [place] [address] Delta Rodriguez MD [address] [place] [address] ESOPHAGOGASTRODUODENOSCOPY (EGD), FLEXIBLE, TRANSORAL, DIAGNOSTIC 05/05/20 3:30 PM EST Office Visit Otolaryngology /Head & Neck/Facial Plastic Surgery [address] [facility] [place] [address] Ede Vieira MD [address] [place] [address] 05/12/20 8:40 AM EST Office Visit Pulmonary Medicine, [facility] [address] [place] [address] Rigoberto Lassiter MD [address] [place] [address] 07/20/19 3:00 PM EST Office Visit Family Practice [facility] [address] [place] [address] Torri Urbano CRNP [address] [place] [address] 12/15/19 3:30 PM EDT Office Visit Cardiology, [facility] [address] [place] [address] Kassandra Sam CRNP [address] [place] [address] 01/19/20 3:00 PM EDT Office Visit Family Practice [facility] [address] [place] [address] Bandar Bailon DO [address] [place] [address] Scheduled Procedures Name Priority Associated Diagnoses Date/Ti [...] this encounter Medical Devices Implanted Type Area Key Account Manager Device Identifier Shelf Expiration Date Model / Serial / Lot Graft Lyoplnt 2.5x2.5cm 1x1 - [id number] Implanted:Qty: 1 on 03/07/2022 by Valeriano Hathaway MD at OR [facility] [place] : AESCULAP [id number] 10/20/2026 [id number] / [id number] / [id number] Graft Lyoplnt 2.5x2.5cm 1x1 - [id number] Implanted:Qty: 1 on 03/07/2022 by Valeriano Hathaway MD at OR [facility] B [place] : AESCULAP [id number] 10/20/2026 [id number] / [id number] / [id number] documented as of this encounter Advance Directives [...] the patient have Health Care Power of Plastic Battery Assembler? No * Full Code Date Activated [...] Directives occurred with: Not Discussed Care Teams Curb Machine Operator Relationship Specialty Start Date End Date Bandar Bailon DO [address] [place] [address] PCP - General Family Medicine 10/10/20 documented as of this encounter
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
--- OUTSIDE RECORDS SUMMARY | 2024-05-10 05:46 | External Medical Summary | Summary of Care ---
Author Name Unknown Organization [facility] Address [address] [place] [address] Phone [phone] Care Team Providers Care Microbiology Manager Name Role Phone Bandar Bailon DO Primary Care Provider Reason for Visit * Reason Onset Date Comments Post-Op 02/18/2024 Encounter Details Date Type Department Care Team (Late st Contact Info) Description 02/18/2024 Telephone General Surgery, [facility] [address] [facility] [address] Services, Scheduling [address] [place] [address] Post-Op Allergies Active Allergy Reactions Criticality Noted Date [...] each (=3 months supply). [facility] at [address] [place] [address], [facility] 100, [place] [id number]. 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 Increased risk for Long [...] mRNA, LNP-s, No Pre serve, 2-Dose Series ([employer]) 04/26/2021,10/20/2020,09/27/2020 COVID-19, MRNA-LNP, 23-24, P F, 51 [...] Telephone Encounter - Inna Stewart OSA - 02/18/2024 10:55 AM EDT Scheduled on 03/17/24. * Telephone Encounter - Kassandra Christensen OSA - 02/18/2024 10:27 AM EDT Pts post op for 03/22 was cancelled. There are no appointments close to this time frame to reschedule. Please assist in scheduling. documented in this encounter Plan of Treatment Upcoming Encounters Date Type Department Care Team (Late st Contact Info) Description 03/03/20 2:00 PM EDT Procedure Only Urology, [facility] [address] [place] [address] Enrique Wall MD [address] [place] [address] 03/05/20 7:45 AM EDT Hospital Encounter OR [facility], Operating Room [facility] [address] [place] [phone] Veronica Abraham MD [address] [place] [address] 03/05/20 7:45 AM EDT - 03/05/20 8:59 AM EDT Surgery OR O[facility], Operating Room [facility] [address] [place] [phone] Veronica Abraham MD [address] [place] [address] REPAIR INITIAL INGUINAL HERNIA REDUCIBLE AGE 5 OR MORE 03/09/20 10:00 AM EDT Telemedicine Neuroendocrine , [place] [address] [facility] [place] [id number] Clinic, Neuroendocrine Multidisciplinary [address] [facility] [place] [id number] 03/17/20 10:30 AM EDT Office Visit General Surgery, [facility] [address] [place] [address] Veronica Abraham MD [address] [place] [address] 04/28/20 9:00 AM EST Hospital Encounter ENDO [facility], Endoscopy Room [facility] [address] [place] [address] Delta Rodriguez MD [address] [place] [address] 04/28/20 9:00 AM EST - 04/28/20 9:30 AM EST Surgery ENDO [facility], Endoscopy Room [facility] [address] [place] [phone] Delta Rodriguez MD [address] [place] [address] ESOPHAGOGASTRODUODENOSCOPY (EGD), FLEXIBLE, TRANSORAL, DIAGNOSTIC 05/05/20 3:30 PM EST Office Visit Otolaryngology /Head & Neck/Facial Plastic Surgery [address] [place] [address] Ede Vieira MD [address] [place] [address] 05/12/20 8:40 AM EST Office Visit Pulmonary Medicine, [facility] 132 [facility] [place] [address] Rigoberto Lassiter MD [address] [place] [address] 07/20/19 3:00 PM EST Office Visit Family Practice [facility] [address] [place] [address] Torri Urbano CRNP [address] [place] [address] 12/15/19 3:30 PM EDT Office Visit Cardiology, [facility] [address] [place] [address] Kassandra Sam CRNP [address] [place] [address] 01/19/20 3:00 PM EDT Office Visit Family Practice [facility] [address] [place] [address] Bandar Bailon DO [address] [place] [address] Scheduled Procedures Name Priority Associated Diagnoses Date/Ti [...] this encounter Medical Devices Implanted Type Area Hosiery Pairer Device Identifier Shelf Expiration Date Model / Serial / Lot Graft Lyoplnt 2.5x2.5cm 1x1 - [id number] Implanted:Qty: 1 on 03/07/2022 by Valeriano Hathaway MD at OR [place] [facility] [place] : [id number] 10/20/2026 [id number] / [id number] / [id number] Graft Lyoplnt 2.5x2.5cm 1x1 - [id number] Implanted:Qty: 1 on 03/07/2022 by Valeriano Hathaway MD at OR [place] [facility] [place] : AESCULAP [id number] 10/20/2026 [id number] / [id number] / [id number] documented as of this encounter Advance Directives [...] the patient have Health Care Power of Sales And Marketing Executive? No * Full Code Date Activated Date [...] Directives occurred with: Not Discussed Care Teams Microbiology Manager Relationship Specialty Start Date End Date Bandar Bailon DO [address] [place] [address] PCP - General Family Medicine 10/10/20 documented as of this encounter
--- OUTSIDE RECORDS SUMMARY | 2024-05-10 05:46 | External Medical Summary | Summary of Care ---
Author Name Unknown Organization [facility] Address [address] [facility] [place] [address] Phone [phone] Care Team Providers Care Relationship Advisor Name Role Phone Bandar Bailon DO Primary Care Provider Reason for Visit * Reason Onset Date Comments Appointment 03/02/2024 Encounter Details Date Type Department Care Team (Late st Contact Info) Description 03/02/2024 Telephone Family Practice [facility] [address] [place] [address] Bandar Bailon DO [address] [place] [address] Appointment Allergies Active Allergy Reactions Criticality Noted [...] (=3 months supply). [facility] at [address] [place] [address], [facility] 100, [place] [id number]. 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 Increased risk for Long QT Syndrome. Cardiac [...] mRNA, LNP-s, No Pre serve, 2-Dose Series (Stream5) 04/26/2021,10/20/2020,09/27/2020 COVID-19, MRNA-LNP, 23-24, P F, 51 [...] encounter Miscellaneous Notes * Telephone Encounter - Winter Bailon OSA - 03/03/2024 11:50 AM EDT Nothing open, pt aware * Telephone Encounter - Evy Guzman OSA - 03/02/2024 2:53 PM EDT Patient would like to be seen before his appt on 03/17/2024 if possible. documented in this encounter Plan of Treatment Upcoming Encounters Date Type Department Care Team (Late st Contact Info) Description 03/03/20 24 2:00 PM EDT Procedure Only Urology, [facility] [address] [place] [address] Enrique Wall MD [address] [place] [address] 03/09/20 24 10:00 AM EDT Telemedicine [facility]ocrine , [place] [facility] [address] [facility] [address] 03/17/20 24 8:40 AM EDT Office Visit Family Practice [facility] [address] [place] [address] Anna Brito DO [address] [place] [address] 04/28/20 24 9:00 AM EST Hospital Encounter ENDO [facility], Endoscopy Room [facility] [address] [place] [phone] Delta Rodriguez MD [address] [place] [address] 04/28/20 9:00 AM EST - 04/28/20 9:30 AM EST Surgery ENDO [facility], Endoscopy Room [facility] [address] [place] [phone] Delta Rodriguez MD [address] [place] [address] ESOPHAGOGASTRODUODENOSCOPY (EGD), FLEXIBLE, TRANSORAL, DIAGNOSTIC 05/05/20 3:30 PM EST Office Visit Otolaryngology /Head & Neck/Facial Plastic Surgery [address] [place] [facility] [place] [address] Ede Vieira MD [address] [place] [address] 05/12/20 8:40 AM EST Office Visit Pulmonary Medicine, [facility] 132 [facility] [place] [address] Rigoberto Lassiter MD [address] [place] [address] 07/20/19 3:00 PM EST Office Visit [facility] [place] [address] Torri Urbano CRNP [address] [place] [address] 12/15/19 3:30 PM EDT Office Visit Cardiology, [facility] [address] [place] [address] Kassandra Sam CRNP [address] [place] [address] [place] [address] 01/19/20 3:00 PM EDT Office Visit Family [facility] [address] [place] [address] Bandar Bailon DO [address] [place] [address] Scheduled Procedures Name Priority Associated Diagnoses Date/Ti [...] this encounter Medical Devices Implanted Type Area Sheet Rock Taper Helper Device Identifier Shelf Expiration Date Model / Serial / Lot Graft Lyoplnt 2.5x2.5cm 1x1 - [id number] Implanted:Qty: 1 on 03/07/2022 by Valeriano Hathaway MD at OR [facility] B K[place]ICK : AESCULAP [id number] 10/20/2026 [id number] / [id number] / [id number] Graft Lyoplnt 2.5x2.5cm 1x1 - [id number] Implanted:Qty: 1 on 03/07/2022 by Valeriano Hathaway MD at OR [facility] B [place] : AESCULAP [id number] 10/20/2026 [id number] / [id number] / [id number] documented as of this encounter Advance Directives [...] the patient have Health Care Power of Inbound Call Center Agent? No * Full Code Date Activated Date [...] Directives occurred with: Not Discussed Care Teams Relationship Advisor Relationship Specialty Start Date End Date Bandar Bailon DO [address] [place] [address] PCP - General Family Medicine 10/10/20 documented as of this encounter
--- OUTSIDE RECORDS SUMMARY | 2024-05-10 05:46 | External Medical Summary | Summary of Care ---
Author Name Unknown Organization [facility] Address [address] [facility] [place] [address] Phone [phone] Care Team Providers Care Slicing Machine Tender Name Role Phone Bandar Bailon DO Primary Care Provider Encounter Details Date Type Department Care Team (Late st Contact Info) Description 02/27/2024 Orders Only Family Practice [facility] [address] [place] [address] Bandar Bailon DO [address] [place] [address] Allergies Active Allergy Reactions Criticality Noted Date Comments Sulfamethoxazole-Trimet hoprim Itching 07/16/2021 Pt noted total body itching within one hour of first dose. Took benedryl and inhaler and stopped med. Codeine Other (Please comment) Medium 04/23/2017 Allergic reaction Other reaction(s): UNSURE REACTION - HAPPENED A CHILD Sulfa Antibiotics High 05/22/2022 Other reaction(s): Swelling of Lip/Tongue/Throat documented as of this encounter (statuses as of 02/27/2024) Medications Medication Sig Dispensed Refills Start Date [...] (=3 months supply). [facility] at [address] [place] [address], [facility] 100, [place] [id number]. 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 Increased risk for Long QT Syndrome. 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 Asthma, mild persistent 04/29/2012 Overview: Allergic component ROBERT (obstructive sleep apnea) 02/01/2010 Overview: documented as of this encounter (statuses as of 02/27/2024) Resolved Problems Problem Noted Date Diagnosed Date [...] as of this encounter (statuses as of 02/27/2024) Immunizations Name Administration Dates Next Due COVID-19 mRNA, LNP-s, No Pre serve, 2-Dose Series (Meiaoju) 04/26/2021,10/20/2020,09/27/2020 COVID-19, MRNA-LNP, 23-24, P F, 51 [...] 03/03/20 2:00 PM EDT Procedure Only Urology, [facility] [address] [address] [address] Enrique Wall MD [address] [place] [address] 03/05/20 7:45 AM EDT Hospital Encounter OR [facility], Operating Room [facility] [address] [phone] Veronica Abraham MD [address] [place] [address] 03/05/20 7:45 AM EDT - 03/05/20 8:59 AM EDT Surgery OR [facility], Operating Room [facility] [address] [place] [phone] Veronica Abraham MD [address] [address] REPAIR INITIAL INGUINAL HERNIA REDUCIBLE AGE 5 OR MORE 03/09/20 10:00 AM EDT Telemedicine Neuroendocrine , [place] [address] [facility] [place] [address] Clinic, Neuroendocrine Multidisciplinary [address] [place] [address] 03/17/20 8:40 AM EDT Office Visit Family Practice [facility] [address] [address] Anna Brito DO [address] [place] [address] 03/17/20 10:30 AM EDT Office Visit General Surgery, [facility] [address] [place] [address] Veronica Abraham MD [address] [place] [address] 04/28/20 9:00 AM EST Hospital Encounter ENDO [facility], Endoscopy Room [facility] [address] [place] [address] Delta Rodriguez MD [address] [place] [address] 04/28/20 9:00 AM EST - 04/28/20 9:30 AM EST Surgery ENDO [facility], Endoscopy Room [facility] [address] [place] [phone] Delta Rodriguez MD [address] [place] [address] ESOPHAGOGASTRODUODENOSCOPY (EGD), FLEXIBLE, TRANSORAL, DIAGNOSTIC 05/05/20 3:30 PM EST Office Visit Otolaryngology /Head & Neck/Facial Plastic Surgery [address] [place] [address] Ede Vieira MD [address] [place] [address] 05/12/20 8:40 AM EST Office Visit Pulmonary Medicine, [facility] [place] [address] Rigoberto Lassiter MD [address] [place] [address] 07/20/19 3:00 PM EST Office Visit Family Practice [facility] [address] [place] [address] Torri Urbano CRNP [address] [place] [address] 12/15/19 3:30 PM EDT Office Visit Cardiology, [facility] [address] [place] [address] Kassandra Sam CRNP [address] [place] [address] 01/19/20 3:00 PM EDT Office Visit Family Practice [facility] [address] [place] [address] Bandar Bailon DO [address] [place] [address] Scheduled Procedures Name Priority Associated Diagnoses Date/Ti [...] this encounter Medical Devices Implanted Type Area Chef De Froid Device Identifier Shelf Expiration Date Model / Serial / Lot Graft Lyoplnt 2.5x2.5cm 1x1 - [id number] Implanted:Qty: 1 on 03/07/2022 by Valeriano Hathaway [place] [facility] [place] : AESCULAP [id number] 10/20/2026 [id number] / [id number] / [id number] Graft Lyoplnt 2.5x2.5cm 1x1 - [id number] Implanted:Qty: 1 on 03/07/2022 by Valeriano Hathaway [place] [facility] [place] : AESCULAP [id number] 10/20/2026 [id number] / [id number] / [id number] documented as of this encounter Procedures Procedure Name Priority Date/Time Associated Diagnosis Comments XR CHEST 1 VIEW Routine 02/26/2024 documented in this encounter Results * XR CHEST 1 VIEW (02/26/2024) Anatomical Region Laterality Modality Chest Other 02/26/2024 History Per Patient RADIOLOGY (RAD GENER AL) documented in this encounter Advance Directives * [...] the patient have Health Care Power of Building Energy Retrofit Technician? No * Full Code Date Activated [...] Directives occurred with: Not Discussed Care Teams Slicing Machine Tender Relationship Specialty Start Date End Date Bandar Bailon DO [address] [place] [address] PCP - General Family Medicine 10/10/20 documented as of this encounter
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
--- OUTSIDE RECORDS SUMMARY | 2024-05-10 05:47 | External Medical Summary | Summary of Care ---
Author Name Unknown Organization [facility] Address [address] [facility] [place] [address] Phone [phone] Care Team Providers Care [employer] Name Role Phone Bandar Bailon Primary Care Provider Reason for Visit * Reason Onset Date Comments Order Request 01/30/2024 Nebulizer kit Encounter Details Date Type Department Care Team (Late st Contact Info) Description 01/30/2024 Telephone Pulmonary Medicine, [facility] [address] [facility] [place] [address] Rigoberto Lassiter MD [address] [facility] [place] [address] Order Request (Nebulizer kit) Allergies Active Allergy Reactions Criticality Noted Date Comments Sulfamethoxazole-Trimet hoprim Itching 07/16/2021 Pt noted total body itching within one hour of first dose. Took benedryl and inhaler and stopped med. Codeine Other (Please comment) Medium 04/23/2017 Allergic reaction Other reaction(s): UNSURE REACTION - HAPPENED A CHILD Sulfa Antibiotics High 05/22/2022 Other reaction(s): Swelling of Lip/Tongue/Throat documented as of this encounter (statuses as of 01/30/2024) Medications Medication Sig Dispensed Refills Start Date [...] each (=3 months supply). [facility] at [address] [place] [address], [facility] [address], [place] [address]. 1 g 3 Active Mupirocin 2 % [...] bedtime. With food.. 180 Tablet 3 Active Famotidine 40 MG Oral Tablet (Pepcid) Take 1 tablet by mouth daily. 90 Tablet 1 3 Active Dicyclomine HCl 10 MG Oral [...] at bedtime. 90 Tablet 3 4 Active BD Luer-Eli Syringe 22G X 1" 3 ML (Syringe/Needle (Disp))Indications :B12 deficiency FOR USE WITH B12 INJECTIONS 3 Each 3 4 Active Pregabalin 150 MG Oral [...] BEFORE MEALS 360 Tablet 3 4 Active Cyanocobalamin 1000 MCG/ML Injection Solution (Cyanocobalamin) INJECT 1,000 MCG (1ML) INTRAMUSCULARLY DIRECTED FOR 30 DAYS 3 mL 4 Active Nadolol 40 MG Oral Tablet (Corgard)Indicatio ns:NSVT (nonsustained ventricular tachycardia) ([facility]) Take 1 Tablet by mouth in [...] the morning 60 Each 10 4 Active Trelegy Ellipta 200-62.5-25 MCG/ACT Aerosol Powder Breath Activated (Fluticasone-Umecl idinium-Vilanterol )Indications:Moder ate persistent asthma without complication Inhale 1 Puff by mouth every morning. 60 Each 11 4 Active Albuterol Sulfate HFA 108 (90 [...] Shortness of Breath. 360 mL 4 Active Albuterol Sulfate 0.63 MG/3ML Inhalation Nebulization Solution (Accuneb) Inhale 1 Vial via nebulizer every 6 hours as needed for Wheezing or Shortness of Breath. 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 Increased risk for Long QT Syndrome. 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 Asthma, mild persistent 04/29/2012 Overview: Allergic component ROBERT (obstructive sleep apnea) 02/01/2010 Overview: documented as of this encounter (statuses as of 01/30/2024) Resolved Problems Problem Noted Date Diagnosed Date [...] as of this encounter (statuses as of 01/30/2024) Immunizations Name Administration Dates Next Due COVID-19 mRNA, LNP-s, No Pre serve, 2-Dose Series (Siklu) 04/26/2021,10/20/2020,09/27/2020 COVID-19, MRNA-LNP, 23-24, P F, 51 [...] as of this encounter Miscellaneous Notes * Addendum Note - Kassandra Hartman RP - 01/30/2024 12:14 PM EDTAddended by: KASSANDRA HARTMAN on: 01/30/2024 12:14 PM Modules accepted: Orders * Telephone Encounter - Kassandra Hartman RPh - 01/30/2024 12:13 PM EDT Rerouted rx to new pharmacy as requested. Thank you, Kassandra Hartman PharmD Clinical Pharmacist [facility] 01/30/24 12:13 PM [phone] * Addendum Note - Anu Banks PHARM Tech - 01/30/2024 11:45 AM EDT Addended by: ANU BANKS on: 01/30/2024 11:45 AM Modules accepted: Orders * Telephone Encounter - Anu Banks PHARM Tech - 01/30/2024 11:44 AM EDT Please reroute Rx to [facility] [address] [address]. Patient is receiving his nebulizer kit today, however medication is being sent separate. Caller is requesting to have this transferred so he can picker machine operator today. Pending Prescriptions: Disp Refills Albuterol Sulfate 0.63 MG/3ML Inhalation *360 mL 0 Sig: Inhale 1 Vial via nebulizer every 6 hours as needed for Wheezing or Shortness of Breath. Last Visit: 01/29/2024 (in office), Visit date not found (telemedicine) 05/12/2024 If no future appointments scheduled, and last appointment is greater than a year ago, please schedule patient for a follow-up appointment Last date the medication was ordered: 01/29/2024 Patient Phone Numbers Labs: Lab Results Component Value Date/Time CREAT 1.0 12/01/2023 04:09 PM CREAT 1.0 06/21/2020 04:22 PM POTASSIUM 4.5 12/01/2023 04:09 PM POTASSIUM 4.5 01/26/2020 11:51 AM TSH 1.24 01/29/2024 11:30 AM TSH 0.79 01/26/2020 11:51 AM LDLCALC 68 05/06/2023 09:33 AM LDLCALC 103 12/13/2017 09:59 AM LDLDIRECT NOT APPLICABLE 12/13/2017 09:59 AM ALT 24 12/01/2023 04:09 PM ALT 19 01/26/2020 11:51 AM HGBA1C 5.7 (H) 05/06/2023 09:33 AM HGBA1C 5.5 07/27/2014 11:22 AM * Telephone Encounter - Debora Gonzalez LPN - 01/30/2024 7:12 AM EDT Neb order submitted to , to go to [facility]. documented in this encounter Plan of Treatment Upcoming Encounters Date Type Department Care Team (Late st Contact Info) Description 02/05/20 7:30 AM EDT PulmDiagnostic Pulmonary Function Lab, [facility] [address] [facility] [place] [address] [place], [place] [address] [facility] [place] [address] 02/17/20 1:40 PM EDT Office Visit Neurology [facility] [place] [address] [place] [address] Pacheco Ortega, DO [address] [place] [address] 03/03/20 2:00 PM EDT Procedure Only Urology, [facility] [address] [place] [address] Enrique Wall MD [address] [place] [address] 03/05/20 7:45 AM EDT Hospital Encounter OR [facility], Operating Room [facility] [address] [place] [phone] Veronica Abraham MD [address] [place] [address] 03/05/20 7:45 AM EDT - 03/05/20 8:59 AM EDT Surgery OR [facility], Operating Room [facility] [address] [place] [id number] Veronica Abraham MD [address] [place] [address] REPAIR INITIAL INGUINAL HERNIA REDUCIBLE AGE 5 OR MORE 03/09/20 10:00 AM EDT Telemedicine Neuroendocrin e, [place] [address] [facility] [address] Clinic, Neuroendocrine Multidisciplinary [address] [facility] [place] [id number] 03/22/20 1:30 PM EDT Office Visit General Surgery, [facility] [address] [place] [address] Veronica Abraham MD [address] [place] [address] 04/28/20 9:00 AM EST Hospital Encounter ENDO [facility], Endoscopy Room [facility] [address] [place] [address] Delta Rodriguez MD [address] [place] [address] 04/28/20 9:00 AM EST - 04/28/20 9:30 AM EST Surgery ENDO [facility], Endoscopy Room [facility] [address] [place] [phone] Delta Rodriguez MD [address] [place] [address] ESOPHAGOGASTRODUODENOSCOPY (EGD), FLEXIBLE, TRANSORAL, DIAGNOSTIC 05/12/20 8:40 AM EST Office Visit Pulmonary Medicine, [facility] [address] [facility] [place] [address] Rigoberto Lassiter MD [facility] [place] [address] 07/20/19 3:00 PM EST Office Visit Family Practice [facility] [address] [facility] [place] [address] Torri Urbano CRNP [address] [facility] [place] [address] 12/15/19 3:30 PM EDT Office Visit Cardiology, [facility] [place] [address] Kassandra Sam CRNP [address] [place] [address] 01/19/20 3:00 PM EDT Office Visit Family Practice [facility] [address] [place] [address] Bandar Bailon, [address] [place] [address] Scheduled Procedures Name Priority Associated Diagnoses Date/Ti [...] 05/06/2028 05/06/2023, 09/2021, 10/11/2021, Additional history exists DTaP,Tdap,and Td Vaccines (3 - Td or Tdap) 12/16/2029 [...] this encounter Medical Devices Implanted Type Area Shrub Grower Device Identifier Shelf Expiration Date Model / Serial / Lot Graft Lyoplnt 2.5x2.5cm 1x1 - [id number] Implanted:Qty: 1 on 03/07/2022 by Valeriano Hathaway MD at OR [facility] [place] : AESCULAP [id number] 10/20/2026 [id number] / [id number] / [id number] Graft Lyoplnt 2.5x2.5cm 1x1 - [id number] Implanted:Qty: 1 on 03/07/2022 by Valeriano Hathaway MD at OR [facility] [place] : AESCULAP [id number] 10/20/2026 [id number] / [id number] / [id number] documented as of this encounter Advance Directives [...] the patient have Health Care Power of Stock Broker? No * Full Code Date Activated Date [...] Directives occurred with: Not Discussed Care Teams [employer] Relationship Specialty Start Date End Date Bandar Bailon DO [address] [place] [address] PCP - General Family Medicine 10/10/20 documented as of this encounter
--- OUTSIDE RECORDS SUMMARY | 2024-05-10 05:47 | External Medical Summary | Summary of Care ---
Author Name Unknown Organization [facility] Address [address] [place] [address] Phone [phone] Care Team Providers Care Vp Purchasing Name Role Phone Bandar Bailon DO Primary Care Provider Reason for Referral * Precert (Within 10 days (routine)) - Pending Review Specialty Diagnoses / Procedures Referred By Luz castillo Referred To Contact Radiology Diagnoses Pituitary macroadenoma (HCC) Visual field loss S/P transsphenoidal hypophysectomy (HCC) Procedures MRI SELLA TURCICA W WO CONTRAST Sujit Shaikh PA-C [address] [place] [address] Referral ID Status Reason Start Date Expiration Date V isits Requested Visits Authorized [id number] Pending Review 02/22/2024 999 [id number] Reason for Visit * Precert (Within 10 days (routine)) - Pending Review Specialty Diagnoses / Procedures Referred By Luz castillo Referred To Contact Radiology Diagnoses Pituitary macroadenoma (HCC) Visual field loss S/P transsphenoidal hypophysectomy (HCC) Procedures MRI SELLA [place] W WO CONTRAST Sujit Shaikh PA-C [address] [place] [address] Referral ID Status Reason Start Date Expiration Date V isits Requested Visits Authorized [id number] Pending Review 02/22/2024 [id number] Encounter Details Date Type Department Care Team (Latest Contact Info) Description 02/12/2024 9:41 AM EDT - 02/12/2024 11:59 PM EDT Hospital Encounter Radiology, [facility] [address] [facility] [place] [address] Arrived Discharge Disposition: Home - Self Care [...] as of this encounter (statuses as of 02/13/2024) Medications Medication Sig Dispensed Refills Start Date [...] each (=3 months supply). [facility] at [address] [place] [address], [address], [place] [address]. 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 Increased risk for Long QT Syndrome. 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 Asthma, mild persistent 04/29/2012 Overview: Allergic component ROBERT (obstructive sleep apnea) 02/01/2010 Overview: documented as of this encounter (statuses as of 02/13/2024) Resolved Problems Problem Noted Date Diagnosed Date [...] as of this encounter (statuses as of 02/13/2024) Immunizations Name Administration Dates Next Due COVID-19 mRNA, LNP-s, No Pre serve, 2-Dose Series ([employer]) 04/26/2021,10/20/2020,09/27/2020 COVID-19, MRNA-LNP, 23-24, P F, 51 [...] as of this encounter Miscellaneous Notes * Ancillary Progress Note - Karen Monroy RN - 02/12/2024 11:00 AM EDT Pt here for MRI and has medtronic pacemaker. TBS s/p ppm 01/14/2018 Cardiology order form confirmedsigned on chart. Pt prepped for test. Crash cart in suite. Pacemaker remotely interrogated and placed in to MRI safemode by Osmin maravilla rep. Pt monitored during test, remained stable. Pacemaker returned to baseline settings remotely by Osmin Polo documented in this encounter Plan of Treatment Upcoming Encounters Date Type Department Care Team (Late st Contact Info) Description 02/17/20 24 3:30 PM EDT Office Visit [facility] [address] [place] [address] Morgan Carlson MD, PhD [address] [place] [address] 03/03/20 2:00 PM EDT Procedure Only Urology, [facility] [address] [place] [address] Enrique Wall MD [address] [place] [address] 03/05/20 7:45 AM EDT Hospital Encounter OR [facility], Operating Room [facility] [address] [place] [address] Veronica Abraham MD [address] [place] [address] 03/05/20 7:45 AM EDT - 03/05/20 8:59 AM EDT Surgery OR [facility], Operating Room [facility] [address] [place] [phone] Veronica Abraham MD [address] [place] [address] REPAIR INITIAL INGUINAL HERNIA REDUCIBLE AGE 5 OR MORE 03/09/20 10:00 AM EDT Telemedicine Neuroendocrine , [place] [address] [place] [address] Clinic, Neuroendocrine Multidisciplinary [address] [place] [address] 03/22/20 1:30 PM EDT Office Visit General Surgery, [facility] [address] [place] [address] Veronica Abraham MD [address] [place] [address] 04/28/20 9:00 AM EST Hospital Encounter ENDO [facility], Endoscopy Room [facility] [address] [place] [address] Delta Rodriguez MD [address] [place] [address] 04/28/20 9:00 AM EST - 04/28/20 9:30 AM EST Surgery ENDO [facility], Endoscopy Room [facility] [address] [place] [phone] Delta Rodriguez MD [address] [place] [address] ESOPHAGOGASTRODUODENOSCOPY (EGD), FLEXIBLE, TRANSORAL, DIAGNOSTIC 05/12/20 8:40 AM EST Office Visit Pulmonary Medicine, [facility] [place] [address] Rigoberto Lassiter MD [address] [place] [address] 07/20/19 3:00 PM EST Office Visit [facility] [address] [facility] [place] [address] Torri Urbano CRNP 132 [facility] [place] [address] 12/15/19 3:30 PM EDT Office Visit Cardiology, [facility] [address] [facility] [place] [address] Kassandra Sam CRNP [address] [place] [address] [place] [address] 01/19/20 3:00 PM EDT Office Visit [facility] [place] [address] Bandar Bailon DO [address] [place] [address] Pending Results Name Type Priority Associated Diagnoses Date /Time MRI SELLA TURCICA W WO CONTRAST Medical Imaging Routine Pituitary macroadenoma (HCC) Visual field loss S/P transsphenoidal hypophysectomy (HCC) 02/12/2024 11:36 AM EDT Scheduled Orders Name Type Priority Associated Diagnoses Orde r Schedule MRI SELLA TURCICA W WO CONTRAST Medical Imaging Routine Pituitary macroadenoma (HCC) Visual field loss S/P transsphenoidal hypophysectomy (HCC) 1 Occurrences starting 02/12/2024 until 02/12/2024 Scheduled Procedures Name Priority Associated Diagnoses Date/Ti [...] this encounter Medical Devices Implanted Type Area German Tutor Device Identifier Shelf Expiration Date Model / Serial / Lot Graft Lyoplnt 2.5x2.5cm 1x1 - [id number] Implanted:Qty: 1 on 03/07/2022 by Valeriano Hathaway MD at OR [facility] [place] : AESCULAP [id number] 10/20/2026 [id number] / [id number] / [id number] Graft Lyoplnt 2.5x2.5cm 1x1 - [id number] Implanted:Qty: 1 on 03/07/2022 by Valeriano Hathaway MD at OR [facility] [place] : AESCULAP [id number] 10/20/2026 [id number] / [id number] / [id number] documented as of this encounter Visit Diagnoses Diagnosis Left inguinal hernia- Primary Inguinal hernia without mention of obstruction or gangrene, unilateral or unspecified, (not specified as recurrent) Pituitary macroadenoma (HCC) Benign neoplasm of pituitary gland and craniopharyngeal duct (pouch) Visual field loss Visual field defect, unspecified S/P transsphenoidal hypophysectomy (HCC) Other postprocedural status Left inguinal hernia Inguinal hernia without mention of obstruction or gangrene, unilateral or unspecified, (not specified as recurrent) Gastroesophageal reflux disease, unspecified whether esophagitis present Esophageal dysphagia Dysphagia, pharyngoesophageal phase documented in this encounter Administered Medications Inactive Administered Medications - up to 3 most recent administrations Medication Order MAR Action Action Date Dose Rate Site gadobutrol (Gadavist) inj 2 mL 2 mL, Intravenous, ONCE, On Laurie 02/12/24 at 1001, For 1 dose, Radiology Medication Routing (Non-IR) Given 02/12/2024 10:44 AM EDT 8.5 mL Hand Left documented in this encounter Advance Directives * [...] the patient have Health Care Power of Dog Hair Clipper? No * Full Code Date Activated Date [...] Directives occurred with: Not Discussed Care Teams Vp Purchasing Relationship Specialty Start Date End Date Bandar Bailon DO [address] [place] [address] PCP - General Family Medicine 10/10/20 documented as of this encounter
--- OUTSIDE RECORDS SUMMARY | 2024-05-10 05:47 | External Medical Summary | Summary of Care ---
Author Name Unknown Organization [facility] Address [address] [facility] [place] [address] Phone [phone] Care Team Providers Care Cake Press Operator Name Role Phone Bandar Bailon DO Primary Care Provider Reason for Visit * Reason Comments Oxygen Assessment [address] Encounter Details Date Type Department Care Team (Latest Contact Info) Description 02/05/2024 7:30 AM EDT PulmDiagnostic Pulmonary Function Lab, [facility] [address] [facility] [place] [address] [address], [address] [facility] [place] [address] Moderate persistent asthma without complication* Allergies Active Allergy Reactions Criticality Noted Date Comments Sulfamethoxazole-Trimet hoprim Itching 07/16/2021 Pt noted total body itching within one hour of first dose. Took benedryl and inhaler and stopped med. Codeine Other (Please comment) Medium 04/23/2017 Allergic reaction Other reaction(s): UNSURE REACTION - HAPPENED A CHILD Sulfa Antibiotics High 05/22/2022 Other reaction(s): Swelling of Lip/Tongue/Throat documented as of this encounter (statuses as of 02/05/2024) Medications Medication Sig Dispensed Refills Start Date [...] (=3 months supply). [facility] at [address] [place] [address], [place] [address], [place] [address]. 1 g 3 Active Mupirocin 2 % [...] Shortness of Breath. 360 mL 4 Active Trelegy Ellipta 200-62.5-25 MCG/ACT Aerosol Powder Breath Activated (Fluticasone-Umecl idinium-Vilanterol )Indications:Moder ate persistent asthma without complication Inhale 1 Puff by mouth every morning. 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 Increased risk for Long QT Syndrome. 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 Asthma, mild persistent 04/29/2012 Overview: Allergic component ROBERT (obstructive sleep apnea) 02/01/2010 Overview: documented as of this encounter (statuses as of 02/05/2024) Resolved Problems Problem Noted Date Diagnosed Date [...] as of this encounter (statuses as of 02/05/2024) Immunizations Name Administration Dates Next Due COVID-19 mRNA, LNP-s, No Pre serve, 2-Dose Series (Easycause) 04/26/2021,10/20/2020,09/27/2020 COVID-19, MRNA-LNP, 23-24, P F, 51 [...] Date Smoking Tobacco: Never Smokeless Tobacco: Never Tobacco Cessation:Counseling Given: Not Answered Alcohol Use Standard Drinks/Week Comments Yes 0 [...] Sign Reading Time Taken Comments Blood Pressure 100/64 02/05/2024 7:18 AM EDT Pulse 54 02/05/2024 7:18 AM EDT Temperature - - Respiratory Rate 18 02/05/2024 7:18 AM EDT Oxygen Saturation 95% 02/05/2024 7:18 AM EDT Inhaled Oxygen Concentration - - Weight 85.3 kg (188 lb 0.8 oz) 02/05/2024 7:18 A M EDT Height 168.5 cm (5' 6.34") 02/05/2024 7:18 AM ED T Body Mass Index 30.04 02/05/2024 7:18 AM EDT documented in this encounter Functional Status Functional Status Response Date of Assess ment Do you have serious difficul ty walking or climbing stairs? (5 years old or older) Yes-as per pt he gets short of breathe 03/08/2022 documented as of this encounter Nursing Notes * Bart Gaytan RRT - 02/05/2024 7:22 AM EDT Félix De La O was identified by name, Date of : (1955), and . Vitals were obtained for testing. Body mass index is 30.11 kg/m. Exercise oximetry performed on room air x 6 minutes. Pt ambulated 1350 feet/ 411 meters. No rest periods were required. Lowest SPO2 on room air was 95%. documented in this encounter Plan of Treatment Upcoming Encounters Date Type Department Care Team (Late st Contact Info) Description 02/12/20 11:00 AM EDT Appointment Radiology, [address] [place] [address] 02/17/20 1:40 PM EDT Office Visit Neurology [facility] Broussard [address] [place] [address] Pacheco Ortega DO [address] [place] [address] 03/03/20 2:00 PM EDT Procedure Only Urology, [facility] [address] [place] [address] Enrique Wall MD [address] [place] [address] 03/05/20 7:45 AM EDT Hospital Encounter OR [facility], Operating Room [facility] [address] [place] [phone] Veronica Abraham MD [address] [place] [address] 03/05/20 7:45 AM EDT - 03/05/20 8:59 AM EDT Surgery OR [facility], Operating Room [facility] [address] [place] [phone] Veronica Abraham MD [address] [place] [address] REPAIR INITIAL INGUINAL HERNIA REDUCIBLE AGE 5 OR MORE 03/09/20 24 10:00 AM EDT Telemedicine Neuroendocrine , [place] [address] [place] [address] Clinic, Neuroendocrine Multidisciplinary [address] [place] [address] 03/22/20 24 1:30 PM EDT Office Visit General Surgery, [facility] [address] [place] [address] Veronica Abraham MD [address] [place] [address] 04/28/20 24 9:00 AM EST Hospital Encounter ENDO [facility], Endoscopy Room [facility] [address] [place] [phone] Delta Rodriguez MD [address] [place] [address] 04/28/20 24 9:00 AM EST - 04/28/20 9:30 AM EST Surgery ENDO [facility], Endoscopy Room [facility] [address] [place], [place] [phone] Delta Rodriguez MD [address] [place] [address] ESOPHAGOGASTRODUODENOSCOPY (EGD), FLEXIBLE, TRANSORAL, DIAGNOSTIC 05/12/20 8:40 AM EST Office Visit Pulmonary Medicine, [facility] [address] [place] [address] Rigoberto Lassiter MD [address] [facility] [place] [address] 07/20/19 3:00 PM EST [facility] [place] [address] Torri Urbano CRNP [address] [place] [address] 12/15/19 3:30 PM EDT Office Visit Cardiology, [facility] [place] [address] Kassandra Sam [facility]NP [facility] [address] 01/19/20 3:00 PM EDT Office Visit [facility] [address] [place] [address] Bandar Bailon DO [address] [place] [address] Scheduled Procedures Name Priority Associated Diagnoses Date/Ti [...] 01/08/2001 Adult Wellness Visit 01/08/2022 COVID-19 Vaccine (2022- season) 2023 05/31/2023, 11/04/2022, 04/26/2021, Additional history exists Influenza Vaccine (FLU shot) (#1) 2024 04/03/2023, 02/26/2022, 05/16/2021, Additional history exists Depression Screening 06/24/2024 06/24/2023 Diabetes Screening 11/30/2026 12/01/2023, 1 07/06/2022, 05/06/2023, Additional history exists Colonoscopy 02/26/2028 02/25/2023, 10/2022, 11/24/2018, Additional history exists Colorectal Cancer Screening 02/26/2028 Lipid Panel 05/06/2028 05/06/2023, 110 09/2021, 10/11/2021, Additional history exists DTaP,Tdap,and Td [...] this encounter Medical Devices Implanted Type Area Fitter Hand Device Identifier Shelf Expiration Date Model / Serial / Lot Graft Lyoplnt 2.5x2.5cm 1x1 - [id number] Implanted:Qty: 1 on 03/07/2022 by Valeriano Hathaway MD at OR [facility] [place] : AESCULAP [id number] 10/20/2026 [id number] / [id number] / [id number] Graft Lyoplnt 2.5x2.5cm 1x1 - [id number] Implanted:Qty: 1 on 03/07/2022 by Valeriano Hathaway MD at OR [facility] [place] : AESCULAP [id number] 10/20/2026 [id number] / [id number] / [id number] documented as of this encounter Visit Diagnoses Diagnosis Left inguinal hernia- Primary Inguinal hernia without mention of obstruction or gangrene, unilateral or unspecified, (not specified as recurrent) Moderate persistent asthma without complication- Primary Unspecified asthma Left inguinal hernia Inguinal hernia without mention [...] the patient have Health Care Power of Solar Designer? No * Full Code Date Activated Date [...] Directives occurred with: Not Discussed Care Teams Cake Press Operator Relationship Specialty Start Date End Date Bandar Bailon DO [address] [place] [address] PCP - General Family Medicine 10/10/20 documented as of this encounter
--- OUTSIDE RECORDS SUMMARY | 2024-05-10 05:47 | External Medical Summary | Summary of Care ---
Author Name Unknown Organization [facility] Address [address] [facility] [place] [address] Phone [phone] Care Team Providers Care Bag Hanger Name Role Phone Quinton Bailon DO Primary Care Provider Reason for Visit * Reason Onset Date Comments Medication Refill 02/10/2024 Encounter Details Date Type Department Care Team (Late st Contact Info) Description 02/10/2024 Refill Family Practice [facility] [address] [place] [address] Yamilka Barakat LPN B12 deficiency Allergies Active Allergy Reactions Criticality Noted Date Comments Sulfamethoxazole-Trimet hoprim Itching 07/16/2021 Pt noted total body itching within one hour of first dose. Took benedryl and inhaler and stopped med. Codeine Other (Please comment) Medium 04/23/2017 Allergic reaction Other reaction(s): UNSURE REACTION - HAPPENED A CHILD Sulfa Antibiotics High 05/22/2022 Other reaction(s): Swelling of Lip/Tongue/Throat documented as of this encounter (statuses as of 02/11/2024) Medications Medication Sig Dispensed Refills Start Date [...] each (=3 months supply). [facility] at [address] [place] [address], [address], [place] [address]. 1 g 3 Active Mupirocin 2 % [...] Oral Tablet (Corgard)Indicatio ns:NSVT (nonsustained ventricular tachycardia) ([facility]) Take 1 Tablet by mouth [...] B12 INJECTIONS 3 Each 3 4 Active BD Luer-Eli Syringe 22G X 1" 3 ML (Syringe/Needle (Disp))Indications :B12 deficiency FOR USE WITH B12 INJECTIONS 3 Each 3 4 02/10/20 24 Discontinu ed(Refill) Hospital, Clinic, or Other Facility Administered Medication Ordered Dose Route Frequency Start Date End Date Status Albuterol Sulfate (Proventil) (2.5 MG/3ML) 0.083% inhalation solution 2.5 mgIndications:Mild persistent asthma without complication,SOB (shortness of breath) 2.5 mg NEBULIZER Q4H PRN 05/30/2021 Act mary jo documented as of this encounter (statuses as of 02/11/2024) Active Problems Problem Noted Date Diagnosed Date [...] 03/18/2018 Overview: 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 Increased risk for Long QT Syndrome. 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 Asthma, mild persistent 04/29/2012 Overview: Allergic component ROBERT (obstructive sleep apnea) 02/01/2010 Overview: documented as of this encounter (statuses as of 02/11/2024) Resolved Problems Problem Noted Date Diagnosed Date [...] as of this encounter (statuses as of 02/11/2024) Immunizations Name Administration Dates Next Due COVID-19 mRNA, LNP-s, No Pre serve, 2-Dose Series (Scannx) 04/26/2021,10/20/2020,09/27/2020 COVID-19, MRNA-LNP, 23-24, P F, 51 [...] Seasonal Influenza, Quadriva lent, No Preserve, IM 04/03/2023,03/20/2019,03/04/2018,09/28 /2016 Seasonal Influenza, Split, I IV3, With Preserve, [...] encounter Miscellaneous Notes * Telephone Encounter - Quinton Bailon DO - 02/11/2024 9:34 AM EDT Signed Prescriptions: Disp Refills BD Luer-Eli Syringe 22G X 1" 3 ML (Syringe*3 Each 3 Sig: FOR USE WITH B12 INJECTIONS Authorizing Provider: QUINTON BAILON * Telephone Encounter - Yamilka Barakat LPN - 02/10/2024 4:02 PM EDT Pending Prescriptions: Disp Refills BD Luer-Eli Syringe 22G X 1" 3 ML (Syring*3 Each 3 Sig: FOR USE WITH B12 INJECTIONS Last Visit: 01/17/2024 (in office), 11/19/2019 (telemedicine) Next Visit: 07/20/2024 Last date the medication was ordered: 07/26/2023 Patient Active Problem List Diagnosis ROBERT (obstructive [...] (HCC) Adrenal disease (HCC) Left inguinal hernia Labs: Lab Results Component Value Date/Time CREATININE - [facility] 1.0 12/01/2023 04:09 PM CREATININE - [facility] 1.0 06/21/2020 04:22 PM CREATININE, RANDOM URINE - [facility] 62 05/06/2023 09:39 AM CREATININE, RANDOM URINE - [facility] 116 01/01/2016 03:00 PM CREATININE-OUTSIDE LAB 1.14 03/29/2018 12:00 AM Lab Results Component Value Date/Time POTASSIUM - [facility] 4.5 12/01/2023 04:09 PM POTASSIUM - [facility] 4.5 01/26/2020 11:51 AM POTASSIUM-OUTSIDE LAB 3.5 03/29/2018 12:00 AM Lab Results Component Value Date/Time TSH - [facility] 1.24 01/29/2024 11:30 AM TSH - [facility] 0.79 01/26/2020 11:51 AM TSH - OUTSIDE LAB 1.320 01/04/2018 12:00 AM Lab Results Component Value Date/Time LDL CHOLESTEROL (CALCULATED) - [facility] 68 05/06/2023 09:33 AM LDL CHOLESTEROL (CALCULATED) - [facility] 65 04/26/2022 02:45 PM LDL CHOLESTEROL (CALCULATED) - [facility] 103 12/13/2017 09:59 AM LDL CHOLESTEROL (CALCULATED) - [facility] 111 07/27/2014 11:22 AM LDL CHOLESTEROL (DIRECT MEASURE) - [facility] NOT APPLICABLE 12/13/2017 09:59 AM LDL CHOLESTEROL (DIRECT MEASURE) - [facility] NOT APPLICABLE 07/27/2014 11:22 AM Lab Results Component Value Date/Time ALT - [facility] 24 12/01/2023 04:09 PM ALT - [facility] 19 01/26/2020 11:51 AM ALT-OUTSIDE LAB 25 10/10/2014 12:00 AM ALTERNARIA IGE - [facility] 1.44 (H) 03/18/2012 03:03 PM Hemoglobin AIC Results: Lab Results Component Value Date/Time HEMOGLOBIN A1C - [facility] 5.7 (H) 05/06/2023 09:33 AM HEMOGLOBIN A1C - [facility] 5.5 04/26/2022 02:45 PM HEMOGLOBIN A1C - [facility] 5.8 (H) 10/23/2021 10:03 AM HEMOGLOBIN A1C - [facility] 5.5 07/27/2014 11:22 AM HEMOGLOBIN A1C - [facility] 5.5 03/21/2014 02:12 PM HEMOGLOBIN A1C - [facility] 5.3 01/28/2014 12:25 PM documented in this encounter Plan of Treatment Upcoming Encounters Date Type Department Care Team (Late st Contact Info) Description 02/12/20 11:00 AM EDT Hospital Encounter Radiology, [facility] [address] [place] [address] 03/03/20 2:00 PM EDT [facility] [address] [place] [address] Enrique Wall MD [address] [place] [address] 03/05/20 7:45 AM EDT Hospital Encounter OR [facility], Operating Room O[facility] [address] [place] [phone] Veronica Abraham MD 132 [facility] [place] [address] 03/05/20 7:45 AM EDT - 03/05/20 8:59 AM EDT Surgery OR [facility], Operating Room [facility] [address] [place] [phone] Veronica Abraham MD [address] [place] [address] REPAIR INITIAL INGUINAL HERNIA REDUCIBLE AGE 5 OR MORE 03/09/20 10:00 AM EDT Telemedicine [facility] , [place] [address] [facility] [place] [address] Clinic, Neuroendocrine Multidisciplinary [address] [facility] [place] [address] 03/22/20 1:30 PM EDT Office Visit General Surgery, [facility] [address] [place] [address] Veronica Abraham MD [address] [place] [address] 04/28/20 9:00 AM EST Hospital Encounter ENDO [facility], Endoscopy Room [facility] [address] [place] [phone] Delta Rodriguez MD [address] [place] [address] 04/28/20 9:00 AM EST - 04/28/20 9:30 AM EST Surgery ENDO [facility], Endoscopy Room [facility] [address] [place] [phone] Delta Rodriguez MD [address] [place] [address] ESOPHAGOGASTRODUODENOSCOPY (EGD), FLEXIBLE, TRANSORAL, DIAGNOSTIC 05/12/20 8:40 AM EST Office Visit Pulmonary Medicine, [facility] [place] [address] Rigoberto Lassiter MD [address] [place] [address] 07/20/19 25 3:00 PM EST Office Visit Family Practice [facility] [place] [address] Torri Urbano CRNP [address] [place] [address] 12/15/19 25 3:30 PM EDT Office Visit Cardiology, [facility] [place] [address] Kassandra Sam CRNP [address] [place] [address] [place] [address] 01/19/20 3:00 PM EDT Office Visit Family [facility] [address] [place] [address] Quinton Bailon, [address] [place] [address] Scheduled Procedures Name Priority Associated Diagnoses Date/Ti [...] this encounter Medical Devices Implanted Type Area Media Producer Device Identifier Shelf Expiration Date Model / Serial / Lot Graft Lyoplnt 2.5x2.5cm 1x1 - [id number] Implanted:Qty: 1 on 03/07/2022 by Valeriano Hathaway MD at OR [facility] [place] : AESCULAP [id number] 10/20/2026 [id number] / [id number] / [id number] Graft Lyoplnt 2.5x2.5cm 1x1 - [id number] Implanted:Qty: 1 on 03/07/2022 by Valeriano Hathaway MD at OR [facility] [place] : AESCULAP [id number] 10/20/2026 [id number] / [id number] / [id number] documented as of this encounter Visit Diagnoses Diagnosis Left inguinal hernia- Primary Inguinal hernia without mention of obstruction or gangrene, unilateral or unspecified, (not specified as recurrent) B12 deficiency Other B-complex deficiencies Left inguinal hernia Inguinal hernia without mention [...] the patient have Health Care Power of Senior Assistant Manager? No * Full Code Date Activated [...] Directives occurred with: Not Discussed Care Teams Bag Hanger Relationship Specialty Start Date End Date Quinton Bailon DO [address] [place] [address] PCP - General Family Medicine 10/10/20 documented as of this encounter
--- OUTSIDE RECORDS SUMMARY | 2024-05-10 05:47 | External Medical Summary | Summary of Care ---
Author Name Unknown Organization [facility] Address [address] [place] [address] Phone [phone] Care Team Providers Care Space Systems Operations Superintendent Name Role Phone Bandar Bailon DO Primary Care Provider Encounter Details Date Type Department Care Team (Late st Contact Info) Description 01/30/2024 Documentation Radiology, [facility] [address] [place] [address] Tico Tovar, RT Allergies Active Allergy Reactions Criticality Noted Date [...] (=3 months supply). [facility] at [address] [place] [address], [address], [place] [address]. 1 g 09/12/2022 Active Mupirocin 2 % [...] at bedtime. 90 Tablet 3 06/24/2023 Active BD Luer-Eli Syringe 22G X 1" 3 ML (Syringe/Needle (Disp))Indications :B12 deficiency FOR USE WITH B12 INJECTIONS 3 Each 3 07/26/2023 Active Pregabalin 150 MG Oral Capsule (Lyrica)Indication [...] BEFORE MEALS 360 Tablet 3 11/12/2023 Active Cyanocobalamin 1000 MCG/ML Injection Solution (Cyanocobalamin) INJECT 1,000 MCG (1ML) INTRAMUSCULARLY DIRECTED FOR 30 DAYS 3 mL 11/13/2023 Active Nadolol 40 MG Oral Tablet (Corgard)Indicatio [...] the morning 60 Each 10 01/17/2024 Active Trelegy Ellipta 200-62.5-25 MCG/ACT Aerosol Powder Breath Activated (Fluticasone-Umecl idinium-Vilanterol )Indications:Moder ate persistent asthma without complication Inhale 1 Puff by mouth every morning. 60 Each 11 01/29/2024 Active Albuterol Sulfate HFA 108 (90 Base) [...] Shortness of Breath. 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 Increased risk for Long QT Syndrome. Cardiac [...] mRNA, LNP-s, No Pre serve, 2-Dose Series ([place]) 04/26/2021,10/20/2020,09/27/2020 COVID-19, MRNA-LNP, 23-24, P F, 51 [...] as of this encounter Progress Notes * Tico Tovar, RT - 01/30/2024 5:39 PM EDT Order faxed to Dr. Grayson in Cardiology CXR has already been completed documented in this encounter Plan of Treatment Upcoming Encounters Date Type Department Care Team (Late st Contact Info) Description 02/05/20 7:30 AM EDT PulmDiagnostic Pulmonary Function Lab, [facility] [address] [place] [address] [address] [place] [address] 02/17/20 1:40 PM EDT Office Visit Neurology [facility] [address] [place] [address] Pacheco Ortega, DO [address] [place] [address] 03/03/20 2:00 PM EDT Procedure Only Urology, [facility] [address] [place] [address] Enrique Wall MD [address] [place] [address] 03/05/20 7:45 AM EDT Hospital Encounter OR [facility], Operating Room [facility] [address] [place] [phone] Veronica Abraham MD [address] [place] [address] 03/05/20 7:45 AM EDT - 03/05/20 8:59 AM EDT Surgery OR [facility], Operating Room [facility]SS [address] [place] [phone] Veronica Abraham MD [address] [place] [address] REPAIR INITIAL INGUINAL HERNIA REDUCIBLE AGE 5 OR MORE 03/09/20 24 10:00 AM EDT Telemedicine Neuroendocrin e, [place] [address] [place] [address] Clinic, Neuroendocrine Multidisciplinary [address] [place] [address] 03/22/20 24 1:30 PM EDT Office Visit General Surgery, [facility] [address] [place] [address] Veronica Abraham MD [address] [place] [address] 04/28/20 24 9:00 AM EST Hospital Encounter ENDO [facility], Endoscopy Room [facility] [address] [place] [phone] Delta Rodriguez MD [address] [place] [address] 04/28/20 24 9:00 AM EST - 04/28/20 24 9:30 AM EST Surgery ENDO [facility], Endoscopy Room [facility] [address] [place] [phone] Delta Rodriguez MD [address] [place] [address] ESOPHAGOGASTRODUODENOSCOPY (EGD), FLEXIBLE, TRANSORAL, DIAGNOSTIC 05/12/20 24 8:40 AM EST Office Visit Pulmonary Medicine, [facility] [address] [place] [address] Rigoberto Lassiter MD [address] [place] [address] 07/20/19 25 3:00 PM EST Office Visit Family Practice [facility] [place] [address] [facility] [place] [address] Torri Urbano CRNP 132 [facility] [place] [address] 12/15/19 3:30 PM EDT Office Visit Cardiology, [facility] 132 [facility] [place] [address] Kassandra Sam CRNP [address] [place] [address] 01/19/20 3:00 PM EDT Office Visit [facility] 132 [facility] [place] [address] Bandar Bailon DO 132 [facility] [place] [address] Scheduled Procedures Name Priority Associated Diagnoses Date/Ti [...] this encounter Medical Devices Implanted Type Area Hot Iron Worker Device Identifier Shelf Expiration Date Model / Serial / Lot Graft Lyoplnt 2.5x2.5cm 1x1 - [id number] Implanted:Qty: 1 on 03/07/2022 by Valeriano Hathaway [place] [facility] [place] : ABBEY [id number] 10/20/2026 [id number] / [id number] / [id number] Graft Lyoplnt 2.5x2.5cm 1x1 - [id number] Implanted:Qty: 1 on 03/07/2022 by Valeriano Hathaway MD [place] [facility] [place] : [id number] 10/20/2026 [id number] / [id number] / [id number] documented as of this encounter Advance Directives [...] the patient have Health Care Power of Resident Services Supervisor? No * Full Code Date Activated [...] Directives occurred with: Not Discussed Care Teams Space Systems Operations Superintendent Relationship Specialty Start Date End Date Bandar Bailon DO [address] [place] [address] PCP - General Family Medicine 10/10/20 documented as of this encounter
--- OUTSIDE RECORDS SUMMARY | 2024-05-10 05:47 | External Medical Summary | Summary of Care ---
Author Name Unknown Organization [facility] Address [address] [place] [address] Phone [phone] Care Team Providers Care District Commercial Superintendent Name Role Phone Bandar Bailon DO Primary Care Provider Reason for Visit * Reason Onset Date Comments Appointment 02/11/2024 Encounter Details Date Type Department Care Team (Late st Contact Info) Description 02/11/2024 Telephone Radiology, [facility] [address] [place] [address] Dania Bowers, RT (R) Appointment Allergies Active Allergy Reactions Criticality Noted [...] (=3 months supply). [facility] at [address] [place] [address], [address], [place] [address]. 1 g 09/12/2022 Active Mupirocin 2 % [...] Oral Tablet (Corgard)Indicatio ns:NSVT (nonsustained ventricular tachycardia) (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 Increased risk for Long [...] mRNA, LNP-s, No Pre serve, 2-Dose Series (Buru Buru) 04/26/2021,10/20/2020,09/27/2020 COVID-19, MRNA-LNP, 23-24, P F, 51 [...] encounter Miscellaneous Notes * Telephone Encounter - Dania Bowers RT (R) - 02/11/2024 7:33 PM EDT Left message to reschedule mri. Mri injector under repair until Friday02/13/24. Message sent to [facility] scheduling via Teams documented in this encounter Plan of Treatment Upcoming Encounters Date Type Department Care Team (Late st Contact Info) Description 02/12/20 11:00 AM EDT Hospital Encounter Radiology, [facility] [address] [facility] [place] [address] 02/17/20 3:30 PM EDT Office Visit Neurosurgery, [address] [address] Morgan Carlson MD, PhD [address] [place] [address] 03/03/20 2:00 PM EDT Procedure Only Urology, [facility] [address] [place] [address] Enrique Wall MD 27 [facility] [place] [address] 03/05/20 7:45 AM EDT Hospital Encounter OR [facility], Operating Room [facility] [address] [phone] Veronica Abraham MD [address] [place] [address] 03/05/20 7:45 AM EDT - 03/05/20 8:59 AM EDT Surgery OR [facility], Operating Room [facility] [address] [place] [phone] Veronica Abraham MD [address] [place] [address] REPAIR INITIAL INGUINAL HERNIA REDUCIBLE AGE 5 OR MORE 03/09/20 10:00 AM EDT Telemedicine Neuroendocrine , [place] 100 [place] [address] Clinic, Neuroendocrine [facility] [address] [facility] [place] [address] 03/22/20 24 1:30 PM EDT Office Visit General Surgery, [facility] [address] [place] [address] Veronica Abraham MD [address] [place] [address] 04/28/20 9:00 AM EST Hospital Encounter ENDO [facility], Endoscopy Room [facility] [address] [place] [phone] Delta Rodriguez MD [address] [place] [address] 04/28/20 24 9:00 AM EST - 04/28/20 9:30 AM EST Surgery ENDO [facility], Endoscopy Room [facility] [address] [place] [phone] Delta Rodriguez MD [address] [place] [address] ESOPHAGOGASTRODUODENOSCOPY (EGD), FLEXIBLE, TRANSORAL, DIAGNOSTIC 05/12/20 8:40 AM EST Office Visit Pulmonary Medicine, [facility] [address] [place] [address] Rigoberto Lassiter MD [address] [place] [address] 07/20/19 3:00 PM EST Office Visit Family Practice [facility] [address] [place] [address] Torri Urbano CRNP [address] [place] [address] 12/15/19 3:30 PM EDT Office Visit Cardiology, [facility] [place] [address] Kassandra Sam CRNP [address] [place] [address] 01/19/20 3:00 PM EDT Office Visit Family Practice [facility] [place] [address] Bandar Bailon DO 132 [facility] [place] [address] Scheduled Procedures Name Priority Associated Diagnoses Date/Ti [...] this encounter Medical Devices Implanted Type Area Global Marketing Coordinator Device Identifier Shelf Expiration Date Model / Serial / Lot Graft Lyoplnt 2.5x2.5cm 1x1 - [id number] Implanted:Qty: 1 on 03/07/2022 by Valeriano Hathaway [place] [facility] [place] AESCULAP [id number] 10/20/2026 [id number] / [id number] / [id number] Graft Lyoplnt 2.5x2.5cm 1x1 - [id number] Implanted:Qty: 1 on 03/07/2022 by Valeriano Hathaway MD [place] [facility] [place] : AESCULAP [id number] 10/20/2026 [id number] / [id number] / [id number] documented as of this encounter Advance Directives [...] the patient have Health Care Power of Drug Counselor? No * Full Code Date Activated Date [...] occurred with: Not Discussed Care Teams District Commercial Superintendent Relationship Specialty Start Date End Date Bandar Bailon DO [address] [place] [address] PCP - General Family Medicine 10/10/20 documented as of this encounter
--- OUTSIDE RECORDS SUMMARY | 2024-05-10 05:47 | External Medical Summary | Summary of Care ---
Author Name Unknown Organization [facility] Address [address] [facility] [place] [address] Phone [phone] Care Team Providers Care Ear Nose Throat Physician Name Role Phone Quinton Bailon DO Primary Care Provider Reason for Visit * Reason Comments eRx-Medication Refill Encounter Details Date Type Department Care Team (Late st Contact Info) Description 02/06/2024 Refill Family Practice [facility] [address] [place] [address] Quinton Bailon DO [address] [place] [address] Allergies Active Allergy Reactions Criticality Noted Date Comments Sulfamethoxazole-Trimet hoprim Itching 07/16/2021 Pt noted total body itching within one hour of first dose. Took benedryl and inhaler and stopped med. Codeine Other (Please comment) Medium 04/23/2017 Allergic reaction Other reaction(s): UNSURE REACTION - HAPPENED A CHILD Sulfa Antibiotics High 05/22/2022 Other reaction(s): Swelling of Lip/Tongue/Throat documented as of this encounter (statuses as of 02/09/2024) Medications Medication Sig Dispensed Refills Start Date [...] O VIAL 2 mL 6 01/30/20 Active Calcium Carb-Cholecalcife rol 600-200 MG-UNIT Oral [...] each (=3 months supply). [facility] at [address] [place] [address], [facility] [address], [place] [address]. 1 g 09/13/19 23 Active Mupirocin 2 [...] bedtime. 90 Tablet 3 06/24/19 24 Active BD Luer-Eli Syringe 22G X 1" 3 ML (Syringe/Needle (Disp))Indication s:B12 deficiency FOR USE WITH B12 INJECTIONS 3 Each 3 07/26/19 24 Active Pregabalin 150 MG Oral Capsule [...] 30 DAYS 3 mL 02/09/20 24 Active Cyanocobalamin 1000 MCG/ML Injection Solution (Cyanocobalamin) INJECT 1,000 MCG (1ML) INTRAMUSCULARLY DIRECTED FOR 30 DAYS 3 mL 11/13/19 24 024 Discontinued Hospital, Clinic, or Other Facility Administered Medication Ordered Dose Route Frequency Start Date End Date Status Albuterol Sulfate (Proventil) (2.5 MG/3ML) 0.083% inhalation solution 2.5 mgIndications:Mild persistent asthma without complication,SOB (shortness of breath) 2.5 mg NEBULIZER Q4H PRN 05/30/2021 Act mary jo documented as of this encounter (statuses as of 02/09/2024) Active Problems Problem Noted Date Diagnosed Date [...] 03/18/2018 Overview: 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 Increased risk for Long QT Syndrome. 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 Asthma, mild persistent 04/29/2012 Overview: Allergic component ROBERT (obstructive sleep apnea) 02/01/2010 Overview: documented as of this encounter (statuses as of 02/09/2024) Resolved Problems Problem Noted Date Diagnosed Date [...] as of this encounter (statuses as of 02/09/2024) Immunizations Name Administration Dates Next Due COVID-19 mRNA, LNP-s, No Pre serve, 2-Dose Series (Atmail) 04/26/2021,10/20/2020,09/27/2020 COVID-19, MRNA-LNP, 23-24, P F, 51 [...] Telephone Encounter - Quinton Bailon DO - 02/09/2024 10:25 AM EDT Signed Prescriptions: Disp Refills Cyanocobalamin 1000 MCG/ML Injection Solut*3 mL 0 Sig: INJECT 1,000 MCG (1ML) INTRAMUSCULARLY DIRECTED FOR 30 DAYS Authorizing Provider: QUINTON BAILON * Telephone Encounter - Teresa Ventura LPN - 02/09/2024 9:09 AM EDTPending Prescriptions: Disp Refills Cyanocobalamin 1000 MCG/ML Injection Solut*3 mL 0 Sig: INJECT 1,000 MCG (1ML) INTRAMUSCULARLY DIRECTED FOR 30 DAYS * Telephone Encounter - Teresa Ventura LPN - 02/09/2024 9:08 AM EDT Did you pend patient's preferred pharmacy and medication before forwarding?yes [facility] [address] [address] [place] Pending Prescriptions: Disp Refills Cyanocobalamin 1000 MCG/ML Injection Solu*3 mL 0 Sig: INJECT 1,000 MCG (1ML) INTRAMUSCULARLY DIRECTED FOR 30 DAYS Last Visit: 01/17/2024 (in office), 11/19/2019 (telemedicine) Next Visit: 07/20/2024 If no future appointments scheduled, and last appointment is greater than a year ago, please schedule patient for a follow-up appointment Last date the medication was ordered: 11/13/2023 Is this request for a controlled substance?No [...] 07/27/2014 11:22 AM * Telephone Encounter - Sherrie Tamez - 02/06/2024 7:34 PM EDTPending Prescriptions: Disp Refills Cyanocobalamin 1000 MCG/ML Injection Solut*3 mL 0 Sig: INJECT 1,000 MCG (1ML) INTRAMUSCULARLY DIRECTED FOR 30 DAYS documented in this encounter Plan of Treatment Upcoming Encounters Date Type Department Care Team (Late st Contact Info) Description 02/12/20 11:00 AM EDT Hospital Encounter Radiology, [facility] [address] [place] [address] 02/17/20 1:40 PM EDT Office Visit Neurology [facility] [address] [place] [address] Pacheco Ortega, DO [address] [place] [address] 03/03/20 2:00 PM EDT Procedure Only Urology, [facility] [address] [place] [address] Enrique Wall MD [address] [place] [address] 03/05/20 7:45 AM EDT Hospital Encounter OR [facility], Operating Room [facility] [address] [place] [phone] Veronica Abraham MD [address] [place] [address] 03/05/20 7:45 AM EDT - 03/05/20 8:59 AM EDT Surgery OR [facility], Operating Room [facility] [address] [place] [phone] Veronica Abraham MD [address] [place] [address] REPAIR INITIAL INGUINAL HERNIA REDUCIBLE AGE 5 OR MORE 03/09/20 10:00 AM EDT Telemedicine Neuroendocrine , [place] [address] [facility] [place] [address] Clinic, Neuroendocrine Multidisciplinary [address] [facility] [place] [address] 03/22/20 1:30 PM EDT Office Visit General Surgery, [facility] [address] [place] [address] Veronica Abraham MD [address] [place] [address] 04/28/20 9:00 AM EST Hospital Encounter ENDO [facility], Endoscopy Room [facility] [address] [place] [address] Delta Rodriguez MD [address] [place] [address] 04/28/20 9:00 AM EST - 04/28/20 9:30 AM EST Surgery ENDO [facility], Endoscopy Room [facility] [address] [place], [place] [phone] Delta Rodriguez MD [address] [place] [address] ESOPHAGOGASTRODUODENOSCOPY (EGD), FLEXIBLE, TRANSORAL, DIAGNOSTIC 05/12/20 8:40 AM EST Office Visit Pulmonary Medicine, [facility] [address] [place] [address] Rigoberto Lassiter MD [address] [facility] [place] [address] 07/20/19 3:00 PM EST Office Visit Family Practice [facility] [address] [place] [address] Torri Urbano CRNP [address] [place] [address] 12/15/19 25 3:30 PM EDT Office Visit Cardiology, [facility] [address] [place] [address] Kassandra Sam CRNP [address] [place] [address] [place] [address] 01/19/20 3:00 PM EDT Office Visit Family [facility] [address] [place] [address] Quinton Bailon DO [address] [place] [address] Scheduled Procedures Name Priority Associated Diagnoses Date/Ti [...] this encounter Medical Devices Implanted Type Area Public Health Engineer Device Identifier Shelf Expiration Date Model / Serial / Lot Graft Lyoplnt 2.5x2.5cm 1x1 - [id number] Implanted:Qty: 1 on 03/07/2022 by Valeriano Hathaway [place] [facility] [place] AESCULAP [id number] 10/20/2026 [id number] / [id number] / [id number] Graft Lyoplnt 2.5x2.5cm 1x1 - [id number] Implanted:Qty: 1 on 03/07/2022 by Valeriano Hathaway MD [place] [facility] [place] AESCULAP [id number] 10/20/2026 [id number] / [id number] / [id number] documented as of this encounter Advance Directives [...] the patient have Health Care Power of Low Raw Sugar Cutter? No * Full Code Date Activated Date [...] Directives occurred with: Not Discussed Care Teams Ear Nose Throat Physician Relationship Specialty Start Date End Date Quinton Bailon DO [address] [place] [address] PCP - General Family Medicine 10/10/20 documented as of this encounter
--- OUTSIDE RECORDS SUMMARY | 2024-05-10 05:47 | External Medical Summary | Summary of Care ---
Author Name Unknown Organization [facility] Address [address] [place] [address] Phone [phone] Care Team Providers Care Fox Farmer Name Role Phone UvaldoRuiBandartwin Garrisonpriyanka Primary Care Provider Reason for Visit * Reason Onset Date Comments Appointment 02/10/2024 Encounter Details Date Type Department Care Team (Late st Contact Info) Description 02/10/2024 Telephone [facility] [place] [address] [place] [address] Specified, [facility] [address] [place] [address] Appointment Allergies Active Allergy Reactions [...] as of this encounter (statuses as of 02/10/2024) Medications Medication Sig Dispensed Refills Start Date [...] each (=3 months supply). [facility] at [address] [place] [address], [facility] 100, [place] [id number]. 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 Increased risk for Long QT Syndrome. 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 Asthma, mild persistent 04/29/2012 Overview: Allergic component ROBERT (obstructive sleep apnea) 02/01/2010 Overview: documented as of this encounter (statuses as of 02/10/2024) Resolved Problems Problem Noted Date Diagnosed Date [...] as of this encounter (statuses as of 02/10/2024) Immunizations Name Administration Dates Next Due COVID-19 mRNA, LNP-s, No Pre serve, 2-Dose Series ([employer]) 04/26/2021,10/20/2020,09/27/2020 COVID-19, MRNA-LNP, 23-24, P F, 51 [...] encounter Miscellaneous Notes * Telephone Encounter - Bhumi Ornelas OSA - 02/10/2024 8:28 AM EDT Lmom to schedule an appt with Dr Carlson per the directive below from Varghese Beth * Telephone Encounter - Bhumi Ornelas OSA - 02/10/2024 8:28 AM EDT ----- Message from Varghese Cash sent at 02/02/2024 8:39 AM EDT ----- Regarding: Return appointment with ЕЛЕНА Tripathi, Can you please set this patient up with Dr. Carlson - Prior Zuri patient followed for tiny aneurysm and had no follow up after his repeat MRA in June 2022. documented in this encounter Plan of Treatment Upcoming Encounters Date Type Department Care Team (Late st Contact Info) Description 02/12/20 11:00 AM EDT Hospital Encounter Radiology, [facility] [address] [facility] [place] [address] 02/17/20 1:40 PM EDT Office Visit Neurology [facility] [address] [place] [address] Pacheco Ortega, [address] [place] [address] 03/03/20 2:00 PM EDT Procedure Only Urology, [facility] [address] [place] [address] Enrique Wall MD [address] [place] [address] 03/05/20 7:45 AM EDT Hospital Encounter [facility], Operating Room [facility] [address] [place] [phone] Veronica Abraham MD [address] [place] [address] 03/05/20 7:45 AM EDT - 03/05/20 8:59 AM EDT Surgery OR [facility], Operating Room [facility] [address] [place] [address] Veronica Abraham MD [address] [place] [address] REPAIR INITIAL INGUINAL HERNIA REDUCIBLE AGE 5 OR MORE 03/09/20 10:00 AM EDT Telemedicine Neuroendocrine , [place] [address] [place] [address] Clinic, Neuroendocrine [facility] [address] [place], [place] [address] 03/22/20 1:30 PM EDT Office Visit General Surgery, [facility] [address] [place] [address] Veronica Abraham MD [address] [place] [address] 04/28/20 9:00 AM EST [facility], Endoscopy Room [facility] [address] [place] [address] Delta Rodriguez MD [address] [place] [address] 04/28/20 9:00 AM EST - 04/28/20 9:30 AM EST Surgery ENDO [facility], Endoscopy Room [facility] [address] [place] [phone] Delta Rodriguez MD [address] [place] [address] ESOPHAGOGASTRODUODENOSCOPY (EGD), FLEXIBLE, TRANSORAL, DIAGNOSTIC 05/12/20 8:40 AM EST Office Visit Pulmonary Medicine, [facility] 132 [facility] [place] [address] Rigoberto [facility]assiter MD [address] [facility] [address] 07/20/19 3:00 PM EST Office Visit [facility] [address] [facility] [place] [address] Torri Urbano CRNP [address] [facility] [place] [address] 12/15/19 3:30 PM EDT Office Visit Cardiology, [facility] 132 [facility] [place] [address] Kassandra Sam CRNP 400 [facility] [place] [address] 01/19/20 3:00 PM EDT Office Visit [facility] [place] [address] Bandar Bailon DO 132 [facility] [place] [address] Scheduled Procedures Name Priority Associated Diagnoses Date/Ti [...] encounter Medical Devices Implanted Type Area Supervisor Kennel Device Identifier Shelf Expiration Date Model / Serial / Lot Graft Lyoplnt 2.5x2.5cm 1x1 - [id number] Implanted:Qty: 1 on 03/07/2022 by Valeriano Hathaway MD [place] [facility] [place] : ABBEY [id number] 10/20/2026 [id number] / [id number] / [id number] Graft Lyoplnt 2.5x2.5cm 1x1 - [id number] Implanted:Qty: 1 on 03/07/2022 by Valeriano Hathaway MD [place] [facility] [place] : AESCULAP [id number] 10/20/2026 [id number] / [id number] / [id number] documented as of this encounter Advance Directives [...] the patient have Health Care Power of Accounting Supervisor? No * Full Code Date Activated [...] Directives occurred with: Not Discussed Care Teams Fox Farmer Relationship Specialty Start Date End Date Bandra Bailon DO [address] [place] [address] PCP - General Family Medicine 10/10/20 documented as of this encounter
--- OUTSIDE RECORDS SUMMARY | 2024-05-10 05:47 | External Medical Summary | Summary of Care ---
Author Name Unknown Organization [facility] Address [address] [place] [address] Phone [phone] Care Team Providers Care Automobile Service Station Mechanic Name Role Phone Dharmesh Bailonjayla Garrisonpriyanka Primary Care Provider Reason for Visit * Reason Onset Date Comments Appointment 02/02/2024 MRI SCREEN/PACEM TRU Encounter Details Date Type Department Care Team (Late st Contact Info) Description 02/02/2024 Telephone Radiology, [facility] [address] [place] [address] Blake Schumacher, RT Appointment (MRI SCREEN/PACEMAKER) Allergies Active Allergy Reactions Criticality Noted Date Comments Sulfamethoxazole-Trimet hoprim Itching 07/16/2021 Pt noted total body itching within one hour of first dose. Took benedryl and inhaler and stopped med. Codeine Other (Please comment) Medium 04/23/2017 Allergic reaction Other reaction(s): UNSURE REACTION - HAPPENED A CHILD Sulfa Antibiotics High 05/22/2022 Other reaction(s): Swelling of Lip/Tongue/Throat documented as of this encounter (statuses as of 02/02/2024) Medications Medication Sig Dispensed Refills Start Date [...] (=3 months supply). [facility] at [address] [place] [address], [facility] [address], [place] [id number]. 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 Increased risk for Long QT Syndrome. 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 Asthma, mild persistent 04/29/2012 Overview: Allergic component ROBERT (obstructive sleep apnea) 02/01/2010 Overview: documented as of this encounter (statuses as of 02/02/2024) Resolved Problems Problem Noted Date Diagnosed Date [...] as of this encounter (statuses as of 02/02/2024) Immunizations Name Administration Dates Next Due COVID-19 mRNA, LNP-s, No Pre serve, 2-Dose Series ([employer]) 04/26/2021,10/20/2020,09/27/2020 COVID-19, MRNA-LNP, 23-24, P F, 51 [...] encounter Miscellaneous Notes * Telephone Encounter - Blake Schumacher RT - 02/02/2024 7:40 AM EDT PT HAS A [employer] CONDITIONAL PACEMAKER. FORMS FAXED TO CARDIAC NURSE AND [employer] REP. ON SCHEDULE FOR 02-12-24 AT 11AM. STILL WAITING FOR CARDIOLOGY ORDER. documented in this encounter Plan of Treatment Upcoming Encounters Date Type Department Care Team (Late st Contact Info) Description 02/05/20 7:30 AM EDT [facility] [address] [place] [address] [address], [address] [place] [address] 02/12/20 11:00 AM EDT Appointment Radiology, [facility] [address] [place] [address] 02/17/20 1:40 PM EDT Office Visit Neurology [facility] [place] [address] [place] [address] Pacheco Ortega, DO [address] [place] [address] 03/03/20 2:00 PM EDT Procedure Only Urology, [facility] [address] [place] [address] Enrique Wall MD [address] [place] [address] 03/05/20 7:45 AM EDT Hospital Encounter OR [facility], Operating Room [facility] [address] [place] [phone] Veronica Abraham MD [address] [place] [address] 03/05/20 7:45 AM EDT - 03/05/20 8:59 AM EDT Surgery OR [facility], Operating Room [facility] [address] [place] [address] Veronica Abraham MD [address] [place] [address] REPAIR INITIAL INGUINAL HERNIA REDUCIBLE AGE 5 OR MORE 03/09/20 10:00 AM EDT Telemedicine Neuroendocrin e, [place] [address] [place] [address] Clinic, Neuroendocrine [facility] [address] [place] [address] 03/22/20 1:30 PM EDT Office Visit General Surgery, [facility] [address] [place] [address] Veronica Abraham MD [address] [place] [address] 04/28/20 9:00 AM EST Hospital Encounter ENDO [facility], Endoscopy Room [facility] [address] [place] [address] Delta Rodriguez MD [address] [place] [address] 04/28/20 9:00 AM EST - 04/28/20 9:30 AM EST Surgery ENDO [facility], Endoscopy Room [facility] [address] [place] [phone] Delta Rodriguez MD [address] [place] [address] ESOPHAGOGASTRODUODENOSCOPY (EGD), FLEXIBLE, TRANSORAL, DIAGNOSTIC 05/12/20 8:40 AM EST Office Visit Pulmonary Medicine, [facility] [address] [facility] [place] [address] Rigoberto Lassiter MD [address] [place] [address] 07/20/19 3:00 PM EST Office Visit [facility] [address] [facility] [place] [address] Torri Urbano CRNP 132 [facility] [place] [address] 12/15/19 3:30 PM EDT Office Visit Cardiology, [facility] 132 [facility] [place] [address] Kassandra Sam CRNP [address] [place] [address] [place] [address] 01/19/20 3:00 PM EDT Office Visit [facility] [address] [facility] [place] [address] Bandar Bailon DO 132 [facility] [place] [address] Scheduled Procedures Name Priority Associated Diagnoses Date/Ti [...] this encounter Medical Devices Implanted Type Area Swiss Type Screw Machine Operator Device Identifier Shelf Expiration Date Model / Serial / Lot Graft Lyoplnt 2.5x2.5cm 1x1 - [id number] Implanted:Qty: 1 on 03/07/2022 by Valeriano Hathaway MD at OR [facility] B [employer] : [employer] [id number] 10/20/2026 [id number] / [id number] / [id number] Graft Lyoplnt 2.5x2.5cm 1x1 - [id number] Implanted:Qty: 1 on 03/07/2022 by Valeriano Hathaway MD at OR [facility] Luna [employer] : AES[employer]ELP [id number] 10/20/2026 [id number] / [id number] / [id number] documented as of this encounter Advance Directives [...] the patient have Health Care Power of Rock Loader? No * Full Code Date Activated Date [...] Directives occurred with: Not Discussed Care Teams Automobile Service Station Mechanic Relationship Specialty Start Date End Date Bandar Bailon DO [address] [place] [address] PCP - General Family Medicine 10/10/20 documented as of this encounter
--- OUTSIDE RECORDS SUMMARY | 2024-05-10 05:47 | External Medical Summary | Summary of Care ---
Author Name Unknown Organization [facility] Address [address] [facility] [place] [address] Phone [phone] Care Team Providers Care Batching Operator Name Role Phone Bandar Bailon Primary Care Provider Reason for Visit * Reason Onset Date Comments Advice 11/18/2023 Encounter Details Date Type Department Care Team (Late st Contact Info) Description 11/18/2023 Telephone Interventional Pain Center, [facility] [address] [place] [id number] Arik Santana DO [address] [place] [phone] Advice Allergies Active Allergy Reactions Criticality Noted [...] as of this encounter (statuses as of 02/14/2024) Medications Medication Sig Dispensed Refills Start Date [...] each (=3 months supply). [facility] at [address] [place] [address], [place] [address], [place] [id number]. 1 g 09/13/19 23 Active Mupirocin 2 [...] mouth in the morning. 90 Tablet 1 03/13/20 23 024 Discontinued(Re fill) Potassium Chloride ER 10 MEQ Oral Capsule Extended ReleaseIndication s:Hypokalemia Take 1 Capsule by mouth in the morning and 1 Capsule before bedtime. 180 Capsule 1 03/13/20 23 024 Discontinued Fluticasone Furoate 100 MCG/ACT Inhalation Aerosol Powder Breath Activated (ARNUITY ellipta) inhale 1 puff daily. Rinse mouth out following use. 90 Each 1 03/13/20 23 024 Discontinued Albuterol Sulfate HFA 108 (90 Base) MCG/ACT Inhalation Aerosol Solution Inhale 2 Puffs by mouth every 6 hours as needed for Wheezing. 54 g 1 04/08/20 23 024 Discontinued(Re fill) BD Luer-Eli Syringe 22G X 1" 3 ML (Syringe/Needle (Disp))Indication s:B12 deficiency FOR USE WITH B12 INJECTIONS 3 Each 3 07/26/19 24 024 Discontinued(Re fill) predniSONE 10 MG Oral Tablet (Deltasone)Indica tions:Mild intermittent asthma with exacerbation Take 5 tabs for 2 days, 4 tabs for 2 days, 3 tabs for 2 days, 2 tabs for 2 days 1 tab for 2 days 30 Tablet 09/04/19 24 024 Discontinued(En d of Procedure) Cyanocobalamin 1000 MCG/ML Injection Solution (Cyanocobalamin) INJECT [...] as of this encounter (statuses as of 02/14/2024) Active Problems Problem Noted Date Diagnosed Date [...] 03/18/2018 Overview: 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 Increased risk for Long QT Syndrome. 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 Asthma, mild persistent 04/29/2012 Overview: Allergic component ROBERT (obstructive sleep apnea) 02/01/2010 Overview: documented as of this encounter (statuses as of 02/14/2024) Resolved Problems Problem Noted Date Diagnosed Date [...] as of this encounter (statuses as of 02/14/2024) Immunizations Name Administration Dates Next Due COVID-19 mRNA, LNP-s, No Pre serve, 2-Dose Series ([employer]) 04/26/2021,10/20/2020,09/27/2020 COVID-19, MRNA-LNP, 23-24, P F, 51 [...] Telephone Encounter - Kassandra Arreola LPN - 11/24/2023 9:12 AM EDT Spoke with patient again. Advised him he can eat/drink and take all meds except diclofenac. Arrivaltime was given again. Reminded to have hazardous materials tanker driver. * Telephone Encounter - Abigail Sanchez OSA - 11/22/2023 9:16 AM EDT Patient called Friday - Stated could not recall what medication(s) to d/c prior to procedure on Friday and does not have arrival time Read back verbatim about needing a hazardous materials tanker driver and d/c Diclofenac 3 days prior which patient advises sounded familiar but anticipated d/c additional medications and mentioned baby aspirin as well Please advise, thank you * Telephone Encounter - Kassandra Arreola LPN - 11/19/2023 8:19 AM EDT Left voicemail for patient. He DOES need a hazardous materials tanker driver for his injection as he was told at the 09/02/23 visit and he must stop his Diclofenac 3days prior. * Telephone Encounter - Winter Bailon OSA - 11/19/2023 7:15 AM EDT I assume this is for his 6-3 pain mgmt appt * Telephone Encounter - Radha Felder OSA - 11/18/2023 4:22 PM EDT Patient called in to make sure that he does not need a hazardous materials tanker driver. Patient states that he hasn't neededone in the past but he just wanted to be safe. documented in this encounter Plan of Treatment Upcoming Encounters Date Type Department Care Team (Late st Contact Info) Description 02/17/20 3:30 PM EDT Office Visit Neurosurgery, [place] [address] [place] [address] Morgan Carlson MD, PhD [address], [place] [id number] 03/03/20 2:00 PM EDT Procedure Only Urology, [facility] [address] [place] [address] Enrique Wall MD [address] [place] [address] 03/05/20 7:45 AM EDT Hospital [facility] [place] [phone] Veronica Abraham MD 132 [facility] [place] [address] 03/05/20 7:45 AM EDT - 03/05/20 8:59 AM EDT Surgery OR [facility], Operating Room [facility] [address] [place] [phone] Veronica Abraham MD [address] [facility] [place] [address] REPAIR INITIAL INGUINAL HERNIA REDUCIBLE AGE 5 OR MORE 03/09/20 10:00 AM EDT Telemedicine Neuroendocrine , [place] [address] [place], [place] [id number] Clinic, Neuroendocrine Multidisciplinary [address] [place] [address] 03/22/20 1:30 PM EDT Office Visit General Surgery, [facility] [address] [place] [address] Veronica Abraham MD [address] [place] [address] 04/28/20 9:00 AM EST Hospital Encounter ENDO [facility], Endoscopy Room [facility] [address] [place] [phone] Delta Rodriguez MD [address] [place] [address] 04/28/20 9:00 AM EST - 04/28/20 9:30 AM EST Surgery ENDO [facility], Endoscopy Room [facility] [address] [place], [place] [phone] Delta Rodriguez MD [address] [place] [address] ESOPHAGOGASTRODUODENOSCOPY (EGD), FLEXIBLE, TRANSORAL, DIAGNOSTIC 05/12/20 8:40 AM EST Office Visit Pulmonary Medicine, [facility] 132 [facility] [place] [address] Rigoberto Lassiter MD [address] [facility] [place] [address] 07/20/19 3:00 PM EST Office Visit Family Practice [facility] [address] [facility] [place] [address] Torri Urbano CRNP [address] [place] [address] 12/15/19 3:30 PM EDT Office Visit Cardiology, [facility] [address] [facility] [place] [address] Kassandra Sam CRNP [address] [place] [address] [place] [address] 01/19/20 3:00 PM EDT Office Visit Family [facility] [address] [place] [address] Bandar Bailon, [address] [place] [address] Scheduled Procedures Name Priority Associated Diagnoses Date/Ti [...] this encounter Medical Devices Implanted Type Area Phytopathology Teacher Device Identifier Shelf Expiration Date Model / Serial / Lot Graft Lyoplnt 2.5x2.5cm 1x1 - [id number] Implanted:Qty: 1 on 03/07/2022 by Valeriano Hathaway MD [place] [facility] [place] [employer] : [employer] [id number] 10/20/2026 [id number] / [id number] / [id number] Graft Lyoplnt 2.5x2.5cm 1x1 - [id number] Implanted:Qty: 1 on 03/07/2022 by Valeriano Hathaway MD [place] [facility] [place] [employer] : AESCULAP [id number] 10/20/2026 [id number] / [id number] / [id number] documented as of this encounter Advance Directives [...] the patient have Health Care Power of Cardiac Monitor? No * Full Code Date Activated Date [...] Directives occurred with: Not Discussed Care Teams Batching Operator Relationship Specialty Start Date End Date Bandar Bailon DO [address] [place] [address] PCP - General Family Medicine 10/10/20 documented as of this encounter
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
--- OUTSIDE RECORDS SUMMARY | 2024-05-10 05:48 | External Medical Summary ---
Author Name Unknown Address Unknown Organization K0[facility] [address] [place] [address] Laboratory Report Ordering Provider Test Date Status JEFFERSON SANCHEZ 01/29/2024 11:30:41 Final Observation Date Value Abnormality Reference (Units ) Status SYNC LEUKOCYTES IN BLOOD BY AUTOMATED COUNT 01/29/2024 11:30:41 5.86 4.00-10.80 (K/uL) Final Segs 01/29/2024 11:30:41 72.5 40.0-75.0 (%) Final Lymphs % 01/29/2024 11:30:41 17.4 Below low normal 18.0-42.0 (%) Final Monos 01/29/2024 11:30:41 7.7 1.0-11.0 (%) Final Eosinophils 01/29/2024 11:30:41 1.7 0.0-6.0 (%) Final Basos 01/29/2024 11:30:41 0.7 0.0-2.0 (%) Final Absolute Segs 01/29/2024 11:30:41 4.25 1.80-7.70 (K/uL) Final Lymphs, absolute 01/29/2024 11:30:41 1.02 1.00-4.80 (K/ul) Final Monos, Abs 01/29/2024 11:30:41 0.45 0.00-1.10 (K/uL) Final Eos, Abs 01/29/2024 11:30:41 0.10 0.00-0.70 (K/uL) Final Basos, Abs 01/29/2024 11:30:41 0.04 0.00-0.20 (K/uL) Final Performing Location [facility] [place] [address]
--- OUTSIDE RECORDS SUMMARY | 2024-05-10 05:48 | External Medical Summary | Summary of Care ---
Author Name Unknown Organization [facility] Address [address] [facility] [address] Phone [phone] Care Team Providers Care Field Agent Name Role Phone Bandar Bailon DO Primary Care Provider Reason for Visit * Reason Comments Outpatient Testing Encounter Details Date Type Department Care Team (Late st Contact Info) Description 01/29/2024 11:50 AM EDT Laboratory Laboratory, [facility] [address] [facility] [place] [address] [facility] [place] [address] Pituitary macroadenoma (HCC); Secondary adrenal insufficiency (HCC); Moderate persistent asthma without complication Allergies Active Allergy Reactions Criticality Noted Date [...] each (=3 months supply). [facility] at [address] [place] [address], [address], [place] [address]. 1 g 09/12/2022 Active Mupirocin 2 % [...] every morning. 60 Blister Dosing Unit 11 01/29/2024 Active Albuterol Sulfate HFA 108 [...] Wheezing or Shortness of Breath. 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 Increased risk for Long QT Syndrome. Cardiac [...] mRNA, LNP-s, No Pre serve, 2-Dose Series (Databox) 04/26/2021,10/20/2020,09/27/2020 COVID-19, MRNA-LNP, 23-24, P F, 51 [...] Team (Late st Contact Info) Description 02/17/20 1:40 PM EDT Office Visit Neurology [facility] [address] [place] [address] Pacheco Ortega, DO [address] [place] [address] 03/03/20 2:00 PM EDT Procedure Only Urology, [facility] [address] [place] [address] Enrique Wall MD [address] [place] [address] 03/05/20 7:45 AM EDT Hospital Encounter OR [facility], Operating Room [facility] [address] [place] [phone] Veronica Abraham MD [address] [place] [address] 03/05/20 7:45 AM EDT - 03/05/20 8:59 AM EDT Surgery OR [facility], Operating Room [facility] [address] [place] [phone] Veronica Abraham MD [address] [place] [address] REPAIR INITIAL INGUINAL HERNIA REDUCIBLE AGE 5 OR MORE 03/09/20 10:00 AM EDT Telemedicine Neuroendocrine , [place] [address] [facility] [place] [address] Clinic, Neuroendocrine Multidisciplinary [address] [facility] [place] [address] 03/22/20 1:30 PM EDT Office Visit General Surgery, [facility] [address] [place] [address] Veronica Abraham MD [address] [place] [address] 04/28/20 9:00 AM EST Hospital Encounter ENDO [facility], Endoscopy Room [facility] [address] [place] [phone] Delta Rodriguez MD [address] [place] [address] 04/28/20 9:00 AM EST - 04/28/20 9:30 AM EST Surgery ENDO [facility], Endoscopy Room [facility] [address] [place] [phone] Delta Rodriguez MD [address] [place] [address] ESOPHAGOGASTRODUODENOSCOPY (EGD), FLEXIBLE, TRANSORAL, DIAGNOSTIC 07/20/19 3:00 PM EST Office Visit [facility] [place] [address] Torri Urbano CRNP [address] [place] [address] 12/15/19 25 3:30 PM EDT Office Visit Cardiology, [facility] [place] [address] Kassandra Sam CRNP [address] [place] [address] [place] [address] 01/19/20 25 3:00 PM EDT Office Visit [facility] [address] [place] [address] Bandar Bailon, [address] [place] [address] Pending Results Name Type Priority Associated Diagnoses Date /Time TSH Lab Routine Pituitary macroadenoma (HCC) Secondary adrenal insufficiency (HCC) 01/29/2024 11:30 AM EDT T4, FREE Lab Routine Pituitary macroadenoma (HCC) Secondary adrenal insufficiency (HCC) 01/29/2024 11:30 AM EDT [facility] PROFILE Lab Routine Moderate persistent asthma without complication 01/29/2024 11:30 AM EDT CBC WITH WBC DIFFERENTIAL Lab Routine Moderate persistent asthma without complication 01/29/2024 11:30 AM EDT IGE Lab Routine Moderate persistent asthma without complication 01/29/2024 11:30 AM EDT CBC Lab Routine Moderate persistent asthma without complication 01/29/2024 11:30 AM EDT DIFFERENTIAL, AUTOMATED Lab Routine Moderate persistent asthma without complication 01/29/2024 11:30 AM EDT Scheduled Procedures Name Priority Associated [...] this encounter Medical Devices Implanted Type Area Metal Products Viewer Device Identifier Shelf Expiration Date Model / Serial / Lot Graft Lyoplnt 2.5x2.5cm 1x1 - [id number] Implanted:Qty: 1 on 03/07/2022 by Valeriano Hathaway MD at [place] [facility] [place] : AESCULAP [id number] 10/20/2026 [id number] / [id number] / [id number] Graft Lyoplnt 2.5x2.5cm 1x1 - [id number] Implanted:Qty: 1 on 03/07/2022 by Valeriano Hathaway MD at OR [facility] [place] : AESCULAP [id number] 10/20/2026 [id number] / [id number] / [id number] documented as of this encounter Visit Diagnoses Diagnosis Left inguinal hernia- Primary Inguinal hernia without mention of obstruction or gangrene, unilateral or unspecified, (not specified as recurrent) Pituitary macroadenoma (HCC) Benign neoplasm of pituitary gland and craniopharyngeal duct (pouch) Secondary adrenal insufficiency (HCC) Glucocorticoid deficiency Moderate persistent asthma without complication Unspecified asthma Left inguinal hernia Inguinal hernia [...] the patient have Health Care Power of Window Shade Ring Coverer? No * Full Code Date Activated Date [...] Directives occurred with: Not Discussed Care Teams Field Agent Relationship Specialty Start Date End Date Bandar Bailon DO [address] [place] [address] PCP - General Family Medicine 10/10/20 documented as of this encounter
--- OUTSIDE RECORDS SUMMARY | 2024-05-10 05:48 | External Medical Summary | Summary of Care ---
Author Name Unknown Organization [facility] Address [address] [facility] [place] [address] Phone [phone] Care Team Providers Care Consulting Project Director Name Role Phone Bandar Bailon Primary Care Provider Reason for Visit * Reason Onset Date Comments Order Request 01/30/2024 Nebulizer kit Encounter Details Date Type Department Care Team (Late st Contact Info) Description 01/30/2024 Telephone Pulmonary Medicine, Health system 132 [facility] [place] [address] Rigoberto Lassiter MD [address] [facility] [place] [address] Order Request (Nebulizer [...] (=3 months supply). [facility] at [address] [place] [address], [facility] [address], [place] [address]. 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 Increased risk for Long QT Syndrome. Cardiac [...] mRNA, LNP-s, No Pre serve, 2-Dose Series (Aptana) 04/26/2021,10/20/2020,09/27/2020 COVID-19, MRNA-LNP, 23-24, P F, 51 [...] encounter Miscellaneous Notes * Telephone Encounter - Debora Gonzalez LPN - 01/30/2024 7:12 AM EDT Neb order submitted to , to go to [facility]. documented in this encounter Plan of Treatment Upcoming Encounters Date Type Department Care Team (Late st Contact Info) Description 02/17/20 1:40 PM EDT Office Visit Neurology [facility] [address] [place] [address] Pacheco Ortega, DO [address] [place] [address] 03/03/20 2:00 PM EDT Procedure Only Urology, Health system [address] [place] [address] Enrique Wall MD [address] [place] [address] 03/05/20 7:45 AM EDT Hospital Encounter OR [facility], Operating Room [facility] [address] [place] [phone] Veronica Abraham MD [address] [place] [address] 03/05/20 7:45 AM EDT - 03/05/20 8:59 AM EDT Surgery OR [facility], Operating Room [facility] [address] [place] [phone] Veronica Abraham MD [address] [place] [address] REPAIR INITIAL INGUINAL HERNIA REDUCIBLE AGE 5 OR MORE 03/09/20 24 10:00 AM EDT Telemedicine Neuroendocrine , [place] [address] [place] [facility] [place] [address] Clinic, Neuroendocrine [facility] [address] [place] [facility] [place] [address] 03/22/20 24 1:30 PM EDT Office Visit General Surgery, Health system [address] [place] [address] Veronica Abraham MD [address] [place] [address] 04/28/20 24 9:00 AM EST Hospital Encounter ENDO [facility], Endoscopy Room [facility] [address] [place] [address] Delta Rodriguez MD [address] [place] [address] 04/28/20 9:00 AM EST - 04/28/20 9:30 AM EST Surgery ENDO [facility], Endoscopy Room [facility] [address] [place] [address] Delta Rodriguez MD [address] [place] [address] ESOPHAGOGASTRODUODENOSCOPY (EGD), FLEXIBLE, TRANSORAL, DIAGNOSTIC 07/20/19 3:00 PM EST Office Visit Family Practice [facility] [address] [place] [address] Torri Urbano CRNP [address] [place] [address] 12/15/19 25 3:30 PM EDT Office Visit Cardiology, Health system [address] [place] [address] Kassandra Sam CRNP [address] [place] [address] 01/19/20 3:00 PM EDT Office Visit Family Practice [facility] [address] [place] [address] Bandar Bailon DO [address] [place] [address] Scheduled Procedures Name Priority Associated Diagnoses Date/Ti [...] this encounter Medical Devices Implanted Type Area Enterprise Sales Executive Device Identifier Shelf Expiration Date Model / Serial / Lot Graft Lyoplnt 2.5x2.5cm 1x1 - [id number] Implanted:Qty: 1 on 03/07/2022 by Valeriano Hathaway MD at [place] [facility] [place] : AESCULAP [id number] 10/20/2026 [id number] / [id number] / [id number] Graft Lyoplnt 2.5x2.5cm 1x1 - [id number] Implanted:Qty: 1 on 03/07/2022 by Valeriano Hathaway MD at [place] [facility] [place] : AESCULAP [id number] 10/20/2026 [id number] / [id number] / [id number] documented as of this encounter Advance Directives [...] the patient have Health Care Power of Adjunct Writing Instructor? No * Full Code Date Activated Date [...] occurred with: Not Discussed Care Teams Consulting Project Director Relationship Specialty Start Date End Date Bandar Bailon DO [address] [place] [address] PCP - General Family Medicine 10/10/20 documented as of this encounter
--- OUTSIDE RECORDS SUMMARY | 2024-05-10 05:48 | External Medical Summary ---
Author Name Unknown Address Unknown Organization [id number][facility] [address] [place] [address] Laboratory Report Ordering Provider Test Date Status JEFFERSON SANCHEZ 01/29/2024 11:30:41 Final Observation Date Value Abnormality Reference (Units ) Status WBC, Total 01/29/2024 11:30:41 5.86 4.00-10.8 0 (K/uL) Final RBC 01/29/2024 11:30:41 4.78 4.50-5.25 (M/uL) Final Hemoglobin 01/29/2024 11:30:41 14.0 14.0-16.8 (g/dL) Final HCT 01/29/2024 11:30:41 44.4 40.0-48.4 (%) Final MCV 01/29/2024 11:30:41 92.9 82.0-99.5 (fL) Final MCH 01/29/2024 11:30:41 29.3 27.0-34.0 (pg) Final MCHC 01/29/2024 11:30:41 31.5 32.0-36.0 (g/dL) Final RDW 01/29/2024 11:30:41 13.6 11.5-15.5 (%) Final Platelets 01/29/2024 11:30:41 233 140-400 (K /uL) Final MPV 01/29/2024 11:30:41 10.6 6.6-11.1 ( fL) Final Performing Location LAB[facility]ATORY [facility] [place] 57-[address] 0 - [address] [place] [address]
--- OUTSIDE RECORDS SUMMARY | 2024-05-10 05:48 | External Medical Summary ---
Author Name Unknown Address Unknown Organization K01:[facility] - [address] [place] [address] Laboratory Report Ordering Provider Test Date Status NAY ESQUIVEL 01/29/2024 11:30:41 Final Observation Date Value Abnormality Reference (Units ) Status T4, Free 01/29/2024 11:30:41 1.3 0.9-1.7 (n g/dL) Final Performing Location [facility] - [address] [place] [address]
--- OUTSIDE RECORDS SUMMARY | 2024-05-10 05:48 | External Medical Summary ---
Author Name Unknown Address Unknown Organization K01:LABORATORY [facility] - [address] [place] [address] Laboratory Report Ordering Provider Test Date Status JEFFERSON SANCHEZ 01/29/2024 11:30:41 Final Observation Date Value Abnormality Reference (Units ) Status IgE 01/29/2024 11:30:41 21.5 <=214.0 (k U/L) Final Performing Location [facility] - [address] [place] [address]
--- OUTSIDE RECORDS SUMMARY | 2024-05-10 05:48 | External Medical Summary | Summary of Care ---
Author Name Unknown Organization [facility] Address [address] [place] [address] Phone [phone] Care Team Providers Care Social Work Administrator Name Role Phone Bandar Bailon Primary Care Provider Reason for Visit * Reason Onset Date Comments Order Request 01/27/2024 Xray chest 2 vie w Encounter Details Date Type Department Care Team (Late st Contact Info) Description 01/27/[address] [facility], [place] [address] [place] [address] Sujit Shaikh PA-C [address] [place] [address] Order Request (Xray chest 2 view) Allergies Active Allergy Reactions Criticality Noted Date Comments Sulfamethoxazole-Trimet hoprim Itching 07/16/2021 Pt noted total body itching within one hour of first dose. Took benedryl and inhaler and stopped med. Codeine Other (Please comment) Medium 04/23/2017 Allergic reaction Other reaction(s): UNSURE REACTION - HAPPENED A CHILD Sulfa Antibiotics High 05/22/2022 Other reaction(s): Swelling of Lip/Tongue/Throat documented as of this encounter (statuses as of 01/27/2024) Medications Medication Sig Dispensed Refills Start Date [...] (=3 months supply). [facility] at [address] [place] [address], [place] [address], [place] [address]. 1 g 09/12/2022 Active Mupirocin 2 % [...] 60 Blister Dosing Unit 11 01/17/2024 Active Fluticasone-Umecli din-Vilant 200-62.5-25 MCG/ACT Aerosol Powder Breath Activated (Trelegy Ellipta) inhale one puff by mouth in the morning 60 Each 10 01/17/2024 Active Hospital, Clinic, or Other Facility Administered Medication Ordered Dose Route Frequency Start Date End Date Status Albuterol Sulfate (Proventil) (2.5 MG/3ML) 0.083% inhalation solution 2.5 mgIndications:Mild persistent asthma without complication,SOB (shortness of breath) 2.5 mg NEBULIZER Q4H PRN 05/30/2021 Act mary jo documented as of this encounter (statuses as of 01/27/2024) Active Problems Problem Noted Date Diagnosed Date [...] 03/18/2018 Overview: 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 Increased risk for Long QT Syndrome. 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 Asthma, mild persistent 04/29/2012 Overview: Allergic component ROBERT (obstructive sleep apnea) 02/01/2010 Overview: documented as of this encounter (statuses as of 01/27/2024) Resolved Problems Problem Noted Date Diagnosed Date [...] as of this encounter (statuses as of 01/27/2024) Immunizations Name Administration Dates Next Due COVID-19 mRNA, LNP-s, No Pre serve, 2-Dose Series (ZOCKO) 04/26/2021,10/20/2020,09/27/2020 COVID-19, MRNA-LNP, 23-24, P F, 51 [...] encounter Miscellaneous Notes * Telephone Encounter - Tico Salmeron OSA - 01/27/2024 10:22 AM EDT Could you please place a chest 2v xray order for patient to get his pacemaker cleared for MRI. Patient would like to go today for the xray. Thank you, MRI Scheduling documented in this encounter Plan of Treatment Upcoming Encounters Date Type Department Care Team (Late st Contact Info) Description 01/29/20 10:40 AM EDT Office Visit Pulmonary Medicine, [facility] [address] [place] [address] Rigoberto Lassiter MD [address] [place] [address] 02/17/20 1:40 PM EDT Office Visit Neurology [facility] [address] [place] [address] Pacheco Ortega, DO [address] [place] [address] 03/03/20 2:00 PM EDT Procedure Only Urology, [facility] [address] [place] [address] Enrique Wall MD [address] [place] [address] 03/05/20 7:45 AM EDT Hospital Encounter OR [facility], Operating Room [facility] [address] [place] [phone] Veronica Abraham MD [address] [place] [address] 03/05/20 7:45 AM EDT - 03/05/20 8:59 AM EDT Surgery OR [facility], Operating Room [facility] [address] [place] [phone] Veronica Abraham MD [address] [place] [address] REPAIR INITIAL INGUINAL HERNIA REDUCIBLE AGE 5 OR MORE 03/09/20 24 10:00 AM EDT Telemedicine Neuroendocrine , [place] [address] [place] [address] Clinic, [facility]ocrine [facility] [address] [place] [facility] [place] [address] 03/22/20 1:30 PM EDT Office Visit General Surgery, [facility] [address] [place] [address] Veronica Abraham MD [address] [place] [address] 04/28/20 9:00 AM EST Hospital Encounter ENDO [facility], [facility] [address] [place] [phone] Delta Rodriguez MD [address] [place] [address] 04/28/20 24 9:00 AM EST - 04/28/20 9:30 AM EST Surgery [facility], [facility] [address] [place] [address] Delta Rodriguez MD [address] [place] [address] ESOPHAGOGASTRODUODENOSCOPY (EGD), FLEXIBLE, TRANSORAL, DIAGNOSTIC 07/20/19 3:00 PM EST Office Visit Family Practice [facility] [address] [place] [address] Torri Urbano CRNP [address] [place] [address] 12/15/19 3:30 PM EDT Office Visit Cardiology, [facility] 132 [facility] [place] [address] Kassandra Sam CRNP [address] [facility] [place] [address] 01/19/20 3:00 PM EDT Office Visit Family Practice [facility] 132 [facility] [place] [address] Bandar Bailon, [address] [facility] [place] [address] Scheduled Orders Name Type Priority Associated Diagnoses Orde r Schedule XR CHEST 2 VIEWS Medical Imaging Routine Pituitary macroadenoma (HCC) Ordered: 01/27/2024 Scheduled Procedures Name Priority Associated Diagnoses Date/Ti [...] this encounter Medical Devices Implanted Type Area Head Start Coordinator Device Identifier Shelf Expiration Date Model / Serial / Lot Graft Lyoplnt 2.5x2.5cm 1x1 - [id number] Implanted:Qty: 1 on 03/07/2022 by Valeriano Hathaway [place] [facility] [place] : AESCULAP [id number] 10/20/2026 [id number] / [id number] / [id number] Graft Lyoplnt 2.5x2.5cm 1x1 - [id number] Implanted:Qty: 1 on 03/07/2022 by Valeriano Hathaway MD [place] [facility] [place] : AESCULAP [id number] 10/20/2026 [id number] / [id number] / [id number] documented as of this encounter Visit Diagnoses Diagnosis Left inguinal hernia- Primary Inguinal hernia without mention of obstruction or gangrene, unilateral or unspecified, (not specified as recurrent) Pituitary macroadenoma (HCC)- Primary Benign neoplasm of pituitary gland and craniopharyngeal duct (pouch) Left inguinal hernia Inguinal hernia without mention [...] the patient have Health Care Power of Auto Body Worker? No * Full Code Date Activated [...] Directives occurred with: Not Discussed Care Teams Social Work Administrator Relationship Specialty Start Date End Date Bandar Bailon DO [address] [place] [address] PCP - General Family Medicine 10/10/20 documented as of this encounter
--- OUTSIDE RECORDS SUMMARY | 2024-05-10 05:48 | External Medical Summary ---
Author Name Unknown Address Unknown Organization K01:LABORATORY [facility] - [address] [place] [address] Laboratory Report Ordering Provider Test Date Status JEFFERSON SANCHEZ 01/29/2024 11:30:41 Final Observation Date Value Abnormality Reference (Units ) Status Dust Mite IgE, pteronyssinus 01/29/2024 11:30:41 <0.10 <0.10 (kUa/L) Final Dust Mite IgE, farinae 01/29/2024 11:30:41 <0.10 <0.10 (kUa/L) Final Cat Epithelium IgE 01/29/2024 11:30:41 <0.10 <0.10 (kUa/L) Final Dog Dander IgE 01/29/2024 11:30:41 <0.10 <0.10 (kUa/L) Final Bermuda grass IgE 01/29/2024 11:30:41 <0.10 <0.10 (kUa/L) Final Sherman IgE 01/29/2024 11:30:41 <0.10 <0.10 (kUa/L) Final Penicillium notatum IgE 01/29/2024 11:30:41 <0.10 <0.10 (kUa/L) Final Cladosporium IgE 01/29/2024 11:30:41 <0.10 <0.10 (kUa/L) Final Aspergillus IgE 01/29/2024 11:30:41 <0.10 <0.10 (kUa/L) Final Alternaria IgE 01/29/2024 11:30:41 0.33 <0.10 (kUa/L) Final Setomelanomma rostrata IgE Ab [Units/volume] in Serum 01/29/2024 11:30:41 0.15 <0.10 (kUa/L) Final Pullularia IgE 01/29/2024 11:30:41 <0.10 <0.10 (kUa/L) Final Acremonium sp IgE Ab [Units/volume] in Serum 01/29/2024 11:30:41 <0.10 <0.10 (kUa/L) Final Maple IgE Ab [Units/volume] in Serum 01/29/2024 11:30:41 <0.10 <0.10 (kUa/L) Final Silver Birch IgE Ab [Units/volume] in Serum 01/29/2024 11:30:41 <0.10 <0.10 (kUa/L) Final Tidewater IgE 01/29/2024 11:30:41 <0.10 <0.10 (kUa/L) Final Elm IgE 01/29/2024 11:30:41 <0.10 <0.10 (kUa/L) Final Woodstock tree IgE 01/29/2024 11:30:41 <0.10 <0.10 (kUa/L) Final [place]field IgE 01/29/2024 11:30:41 <0.10 <0.10 (kUa/L) Final White Jj IgE 01/29/2024 11:30:41 <0.10 <0.10 (kUa/L) Final Pecan or Gilchrist Tree IgE 01/29/2024 11:30:41 <0.10 <0.10 (kUa/L) Final Common ragweed tolowa dee-ni' (nAmb a) 1 IgE Ab [Units/volume] in Serum 01/29/2024 11:30:41 <0.10 <0.10 (kUa/L) Final Mugwort IgE 01/29/2024 11:30:41 <0.10 <0.10 (kUa/L) Final Plaintain (Arabic) IgE 01/29/2024 11:30:41 <0.10 <0.10 (kUa/L) Final Whitlock's Quarters IgE 01/29/2024 11:30:41 <0.10 <0.10 (kUa/L) Final Cocklebur IgE Ab [Units/volume] in Serum 01/29/2024 11:30:41 <0.10 <0.10 (kUa/L) Final Pigweed common IgE 01/29/2024 11:30:41 <0.10 <0.10 (kUa/L) Final Sheep sorrel IgE 01/29/2024 11:30:41 <0.10 <0.10 (kUa/L) Final
<0.10 kUa/L - Class 0 Allergen: Absence of Allergen Specific IgE
0.10-0.34 kUa/L - Class 0/1 Allergen: Low Level of Allergen Specific IgE
0.35-0.69 kUa/L - Class 1 Allergen: Low Level of Allergen Specific IgE
0.70-3.49 kUa/L - Class 2 Allergen: Moderate Level of Allergen Specific IgE
3.50-17.49 kUa/L - Class 3 Allergen: High Level of Allergen Specific IgE
17.5-49.99 kUa/L - Class 4 Allergen: Very High Level of Allergen Specific IgE
50.0-99.99 kUa/L - Class 5 Allergen: Very High Level of Allergen Specific IgE
>=100.0 kUa/L - Class 6 Allergen: Very High Level of Allergen Specific IgE Performing Location LABORATORY [facility] - [facility] [address] [facility]. [facility] [address]
--- OUTSIDE RECORDS SUMMARY | 2024-05-10 05:48 | External Medical Summary | Summary of Care ---
Author Name Unknown Organization [facility] Address [address] [place] [address] Phone [phone] Care Team Providers Care Provider Network Mgr Name Role Phone Bandar Bailonpriyanka Primary Care Provider Reason for Visit * Reason Onset Date Comments Referral 01/22/2024 Encounter Details Date Type Department Care Team (Late st Contact Info) Description 01/22/2024 Telephone Neurology [facility] [address] [place] [address] Services, Scheduling [address] [place] [address] Referral Allergies Active Allergy Reactions Criticality Noted Date Comments Sulfamethoxazole-Trimet hoprim Itching 07/16/2021 Pt noted total body itching within one hour of first dose. Took benedryl and inhaler and stopped med. Codeine Other (Please comment) Medium 04/23/2017 Allergic reaction Other reaction(s): UNSURE REACTION - HAPPENED A CHILD Sulfa Antibiotics High 05/22/2022 Other reaction(s): Swelling of Lip/Tongue/Throat documented as of this encounter (statuses as of 01/23/2024) Medications Medication Sig Dispensed Refills Start Date [...] each (=3 months supply). [facility] at [address] [place] [address], [address], [place] [address]. 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 Increased risk for Long QT Syndrome. 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 Asthma, mild persistent 04/29/2012 Overview: Allergic component ROBERT (obstructive sleep apnea) 02/01/2010 Overview: documented as of this encounter (statuses as of 01/23/2024) Resolved Problems Problem Noted Date Diagnosed Date [...] as of this encounter (statuses as of 01/23/2024) Immunizations Name Administration Dates Next Due COVID-19 mRNA, LNP-s, No Pre serve, 2-Dose Series (CRAiLAR) 04/26/2021,10/20/2020,09/27/2020 COVID-19, MRNA-LNP, 23-24, P F, 51 [...] encounter Miscellaneous Notes * Telephone Encounter - Pacheco Ortega, - 01/23/2024 6:36 AM EDT I reviewed by last office visit note from 07/2023. I did not order any imaging. * Telephone Encounter - Anu Duarte OSA - 01/22/2024 2:22 PM EDT Who is calling: Radiology on behalf ot pt Pt is established with: Dr Ortega Reason for call: Pt presented at radiology for MR/I ordered by Dr Ortega but pt has a pace maker. Per radiology will need order for 2 view xray. Radiology requesting order be placed; They will advise pt to reschedule How long issue has been going on: Additional details: Call back number: no number provided. Pharmacy (if applicable): documented in this encounter Plan of Treatment Upcoming Encounters Date Type Department Care Team (Late st Contact Info) Description 01/29/20 10:40 AM EDT Office Visit Pulmonary Medicine, [facility] [address] [address] Rigoberto Lassiter MD [address] [place] [address] 02/17/20 1:40 PM EDT Office Visit Neurology [facility] [address] [place] [address] Pacheco Ortega DO [address] [place] [address] 03/03/20 2:00 PM EDT Procedure Only Urology, [facility] [address] [address] Enrique Wall MD [address] [place] [address] 03/05/20 7:45 AM EDT Hospital Encounter OR [facility], Operating Room [facility] [address] [address] Veronica Abraham MD [address] [place] [address] 03/05/20 7:45 AM EDT - 03/05/20 8:59 AM EDT Surgery OR [facility], Operating Room [facility] [address] [place] [address] Veronica Abraham MD [address] [place] [address] REPAIR INITIAL INGUINAL HERNIA REDUCIBLE AGE 5 OR MORE 03/09/20 10:00 AM EDT Telemedicine Neuroendocrine , [place] [address] [place] [address] Clinic, Neuroendocrine [facility] [address] [place] [facility] [place] [address] 03/22/20 1:30 PM EDT Office Visit General Surgery, [facility] [address] [place] [address] Veronica Abraham MD [address] [place] [address] 04/28/20 9:00 AM EST Hospital Encounter ENDO [facility], Endoscopy Room [facility] [address] [place] [address] Delta Rodriguez MD [address] [place] [address] 04/28/20 9:00 AM EST - 04/28/20 9:30 AM EST Surgery ENDO [facility], Endoscopy Room [facility] [address] [place] [address] Delta Rodriguez MD [address] [place] [address] ESOPHAGOGASTRODUODENOSCOPY (EGD), FLEXIBLE, TRANSORAL, DIAGNOSTIC 07/20/19 3:00 PM EST Office Visit [facility] [address] [facility] [place] [address] Torri Urbano CRNP 132 [facility] [place] [address] 12/15/19 3:30 PM EDT Office Visit Cardiology, [facility] 132 [facility] [place] [address] Kassandra Sam CRNP [address] [place] [address] 01/19/20 3:00 PM EDT Office Visit [facility] [address] [facility] [place] [address] Bandar Bailon DO 132 [facility] [place] [address] Scheduled Procedures Name Priority Associated Diagnoses Date/Ti [...] this encounter Medical Devices Implanted Type Area Construction Consultant Device Identifier Shelf Expiration Date Model / Serial / Lot Graft Lyoplnt 2.5x2.5cm 1x1 - [id number] Implanted:Qty: 1 on 03/07/2022 by Valeriano Hathaway MD at [place] [facility] [place] : AESRAJAN [id number] 10/20/2026 [id number] / [id number] / [id number] Graft Lyoplnt 2.5x2.5cm 1x1 - [id number] Implanted:Qty: 1 on 03/07/2022 by Valeriano Hathaway MD at [place] [facility] [place] : [id number] 10/20/2026 [id number] / [id number] / [id number] documented as of this encounter Advance Directives [...] the patient have Health Care Power of Systems Librarian? No * Full Code Date Activated Date [...] Directives occurred with: Not Discussed Care Teams Provider Network Mgr Relationship Specialty Start Date End Date Bandar Bailon DO [address] [place] [address] PCP - General Family Medicine 10/10/20 documented as of this encounter
--- OUTSIDE RECORDS SUMMARY | 2024-05-10 05:48 | External Medical Summary ---
Author Name Unknown Address Unknown Organization K01:[facility] [place] [place] [address] [place] [address] Laboratory Report Ordering Provider Test Date Status NAY ESQUIVEL 01/29/2024 11:30:41 Final Observation Date Value Abnormality Reference (Units ) Status TSH 01/29/2024 11:30:41 1.24 0.27-4.20 (uIU/mL) Final Performing Location LAB[facility]ATORY [facility] - [address] [place] [address]
--- OUTSIDE RECORDS SUMMARY | 2024-05-10 05:48 | External Medical Summary | Summary of Care ---
Author Name Unknown Organization [facility] Address [address] [place] [facility] [place] [address] Phone [phone] Care Team Providers Care Spot Man Name Role Phone Bandar Bailon Primary Care Provider Reason for Visit * Reason Onset Date Comments Order Request 01/30/2024 Nebulizer kit Encounter Details Date Type Department Care Team (Late st Contact Info) Description 01/30/2024 Telephone Pulmonary Medicine, [facility] 132 [facility] [place] [address] Rigoberto Lassiter MD [address] [facility] [place] [address] Order Request (Nebulizer [...] each (=3 months supply). [facility] at [address] [place] [address], [facility] [address], [place] [address]. 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 Increased risk for Long QT Syndrome. Cardiac [...] mRNA, LNP-s, No Pre serve, 2-Dose Series (PPI) 04/26/2021,10/20/2020,09/27/2020 COVID-19, MRNA-LNP, 23-24, P F, 51 [...] encounter Miscellaneous Notes * Addendum Note - Anu Banks PHARM Tech - 01/30/2024 11:45 AM EDT Addended by: ANU BANKS on: 01/30/2024 11:45 AM Modules accepted: Orders * Telephone Encounter - Anu Banks PHARM Tech - 01/30/2024 11:44 AM EDT Please reroute Rx to [facility] [address] [place]. Patient is receiving his nebulizer kit today, however medication is being sent separate. Caller is requesting to have this transferred so he can case picker today. Pending Prescriptions: Disp Refills Albuterol Sulfate [...] order submitted to , to go to [facility]. documented in this encounter Plan of Treatment Upcoming Encounters Date Type Department Care Team (Late st Contact Info) Description 02/05/20 7:30 AM EDT PulmDiagnostic Pulmonary Function Lab, [facility] [address] [address] [place], [place] [address] [address] 02/17/20 1:40 PM EDT Office Visit Neurology [facility] [address] [place] [address] Pacheco Ortega, DO [address] [place] [address] 03/03/20 2:00 PM EDT Procedure Only Urology, [facility] [address] [address] Enrique Wall MD [address] [address] 03/05/20 7:45 AM EDT Hospital Encounter OR [facility], Operating Room [facility] [address] [phone] Veronica Abraham MD [address] [address] 03/05/20 7:45 AM EDT - 03/05/20 8:59 AM EDT Surgery OR [facility], Operating Room [facility] [address] [place] [address] Veronica Abraham MD [address] [place] [address] REPAIR INITIAL INGUINAL HERNIA REDUCIBLE AGE 5 OR MORE 03/09/20 10:00 AM EDT Telemedicine Neuroendocrin e, [place] [address] [place] [address] Clinic, [facility] [address], [place] [address] 03/22/20 1:30 PM EDT Office Visit General Surgery, [facility] [address] [address] Veronica Abraham MD [address] [place] [address] 04/28/20 9:00 AM EST Hospital Encounter ENDO [facility], Endoscopy Room [facility] [address] [place] [address] Delta Rodriguez MD [address] [place] [address] 04/28/20 9:00 AM EST - 04/28/20 9:30 AM EST Surgery ENDO [facility], Endoscopy Room [facility] [address] [address] Delta Rodriguez MD [address] [place] [address] ESOPHAGOGASTRODUODENOSCOPY (EGD), FLEXIBLE, TRANSORAL, DIAGNOSTIC 05/12/20 8:40 AM EST Office Visit Pulmonary Medicine, [facility] [address] [facility] [place] [address] Rigoberto [facility]assiter MD [address] [facility] [address] 07/20/19 3:00 PM EST Office Visit [facility] [address] [facility] [place] [address] Torri Urbano CRNP [address] [facility] [place] [address] 12/15/19 3:30 PM EDT Office Visit Cardiology, [facility] 132 [facility] [place] [address] Kassandra Sam CRNP [address] [facility] [place] [address] 01/19/20 3:00 PM EDT Office Visit [facility] 132 [facility] [place] [address] Bandar Bailon DO 132 [facility] [place] [address] Scheduled Procedures Name Priority Associated Diagnoses Date/Ti [...] this encounter Medical Devices Implanted Type Area Real Estate Transaction Coordinator Device Identifier Shelf Expiration Date Model / Serial / Lot Graft Lyoplnt 2.5x2.5cm 1x1 - [id number] Implanted:Qty: 1 on 03/07/2022 by Valeriano Hathaway MD at OR [facility] B [place]ICK : ABBEY [id number] 10/20/2026 [id number] / [id number] / [id number] Graft Lyoplnt 2.5x2.5cm 1x1 - [id number] Implanted:Qty: 1 on 03/07/2022 by Valeriano Hathaway MD at OR [facility] B [place]ICK : CIRILOLAJazlyn [id number] 10/20/2026 [id number] / [id number] / [id number] documented as of this encounter Advance Directives [...] the patient have Health Care Power of Division Field Inspector? No * Full Code Date Activated [...] Directives occurred with: Not Discussed Care Teams Spot Man Relationship Specialty Start Date End Date Bandar Bailon DO [address] [address] PCP - General Family Medicine 10/10/20 documented as of this encounter
--- OUTSIDE RECORDS SUMMARY | 2024-05-10 05:49 | External Medical Summary | Summary of Care ---
Author Name Unknown Organization [facility] Address [address] [facility] [address] Phone [phone] Care Team Providers Care Packer Operator Automatic Name Role Phone Bailon Bandartwin Garrisonpriyanka Primary Care Provider Reason for Referral * Evaluate & Treat - Unlimited Visits (Within 30 days (routine)) - Authorized Specialty Diagnoses / Procedures Referred By Contramiro t Referred To Contact Pulmonary Diseases / Pulmonary Diagnoses Mild persistent asthma without complication Yusuf Felipe MD [address] [place] [address] Referral ID Status Reason Start Date Expiration Date Visits Requested Visits Authorized [id number] Authorized Specialty Services Required 2024 999 999 Question Answer Referral Priority Within 30 days (routine) Where should this appointment be scheduled? [facility] Primary Reason for Referral? Asthma/COPD Comments Asthma follow up Reason for Visit * Reason Comments Emergency Department Follow-Up Pt here f or an ER f/u from 01/05 for asthma exacerbation & covid Encounter Details Date Type Department Care Team (Late st Contact Info) Description 2024 9:00 AM EDT Office Visit [facility] [address] [address] Yusuf Felipe MD [address] [place] [address] Mild persistent asthma without complication*; COVID-19; ROBERT (obstructive sleep apnea) Allergies Active Allergy Reactions Criticality Noted Date Comments Sulfamethoxazole-Trimet hoprim Itching 07/16/2021 Pt noted total body itching within one hour of first dose. Took benedryl and inhaler and stopped med. Codeine Other (Please comment) Medium 04/23/2017 Allergic reaction Other reaction(s): UNSURE REACTION - HAPPENED A CHILD Sulfa Antibiotics High 05/22/2022 Other reaction(s): Swelling of Lip/Tongue/Throat documented as of this encounter (statuses as of 2024) Medications Medication Sig Dispensed Refills Start Date [...] each (=3 months supply). [facility] at [address] [place], [place] [address]e [facility], [address], [place] [address]. 1 g 09/12/2022 Active Mupirocin 2 % External Ointment (Bactroban) Apply to affected toenail sites once daily. Cover with dry bandage. 22 g 11/13/2022 Active Additional Information Patient not taking.Reported on 11/24/2023 Atorvastatin Calcium 20 MG Oral Tablet (Lipitor) [...] before bedtime. 180 Tablet 1 03/14/2023 Active Fluticasone Furoate 100 MCG/ACT Inhalation Aerosol Powder Breath Activated (ARNUITY ellipta) inhale 1 puff daily. Rinse mouth out following use. 90 Each 1 03/13/2023 Active Montelukast Sodium 10 MG Oral Tablet [...] BEFORE BEDTIME 180 Capsule 2 12/29/2023 Active Azithromycin 250 MG Oral Tablet (Zithromax) Take 1 Tablet by mouth in the morning. 01/06/2024 01/10/20 Active predniSONE 20 MG Oral Tablet (Deltasone) Take 1 Tablet by mouth in the morning. 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 Increased risk for Long QT Syndrome. 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 Asthma, mild persistent 04/29/2012 Overview: Allergic component ROBERT (obstructive sleep apnea) 02/01/2010 Overview: documented as of this encounter (statuses as of 2024) Resolved Problems Problem Noted Date Diagnosed Date Resolved Date S/P nasal septoplasty 03/07/20222022 History of 2019 novel bergman virus disease (COVID-19) 02/26/2022 12/04/2022 Overview: Most recent 01/2022. hosp w/gastroenteritis. Overweight (BMI 25.0-29.9) 02/22/2022 0 10/29/2022 Vasospasm of peripheral artery 10/22/2021 02/22/2022 Elevated prolactin level 10/30/2019 Bradycardia, sinus 01/23/2018 0 Adrenal insufficiency 11/06/20172017 Anesthesia complication 10/13/2017/08/2021 Overview: Breathing issues Neuropathy 01/15/2016 12/09/2016 Sialolithiasis [...] as of this encounter (statuses as of 2024) Immunizations Name Administration Dates Next Due COVID-19 mRNA, LNP-s, No Pre serve, 2-Dose Series ([employer]) 04/26/2021,10/20/2020,09/27/2020 COVID-19, MRNA-LNP, 23-24, P F, [...] Sign Reading Time Taken Comments Blood Pressure 100/68 2024 8:41 AM EDT Pulse 73 2024 8:41 AM EDT Temperature 35.8 C (96.4 F) 2024 8:41 AM ED T Respiratory Rate 16 2024 8:41 AM EDT Oxygen Saturation 96% 2024 8:41 AM EDT Inhaled Oxygen Concentration - - Weight 81.3 kg (179 lb 3.2 oz) 2024 8:41 A M EDT Height 168.3 cm (5' 6.25") 2024 8:41 AM ED T Body Mass Index 28.71 2024 8:41 AM EDT documented in this encounter Functional Status Functional Status Response Date of Assess ment Do you have serious difficul ty walking or climbing stairs? (5 years old or older) Yes-as per pt he gets short of breathe 03/08/2022 documented as of this encounter Progress Notes * Yusuf Felipe MD - 2024 8:58 AM EDT Images from the original note were not included. History of Present Illness Félix De La O is a 69 year old male that presents for Emergency Department Follow-Up (Pt here for anER f/u from 01/05 for asthma exacerbation & covid) Mr De La O is in clinic today for an ER f/u after presented for shortness of breath and wheezing. HE was treated with nebulizer, steroids, azithromycin and discharged after negative lab workup. Swab showed + for COVID. Requesting a follow up with his lung doctor who he has not seen in a while. He is feeling a lot better than he was 3 days ago "the steroids really kicked in." Also needs his B12 shottoday. Physical Exam BP 100/68 (BP Site: Left Arm, BP Position: Sitting, BP Cuff Size: Regular) | Pulse 73 | Temp 35.8 C (96.4 F) (Tympanic) | Resp 16 | Ht 1.683 m (5' 6.25") | Wt 81.3 kg (179 lb 3.2 oz) | SpO2 96% |BMI 28.71 kg/m | BSA 1.95 m AAOx3 Normal affect NCAT/ PERRL Neck supple Throat clear RRR, PPM pocket nontender Lungs are CTABL Abd soft +BS Ext warm and well perfused No gross neuro deficits Normal gait, hunched posture I have reviewed most recent labs CMP and CBC Assessment and Plan Mild persistent asthma without complication - much better COVID-19 - no need to retest. He can wait a period of 2-3 months before getting his fall season booster ROBERT (obstructive sleep apnea) - cont CPAP. Vitamin b12 def - shot given today. Wrap-Up Prn/scheduled Defervesced from COVID Complete courses of meds Reassured based on his pacermaker interrogation note in chart that this is good and does not need interrogated any time soon (shows 7+ years of battery on 11/2023 int). Time: I spent a total of 20-29 minutes (exact time 25 mins) on the date of service in preparation, delivery, and documentation of the care provided to Félix De La O excluding any time spent in the performance of separately billed services. documented in this encounter Plan of Treatment Upcoming Encounters Date Type Department Care Team (Late st Contact Info) Description 01/19/20 24 3:00 PM EDT Office Visit Podiatry [facility] [address] [facility] [place] [address] Zoya Casas DPM [address] [place] [address] [place] [address] 01/22/20 24 1:30 PM EDT Office Visit Interventional Pain Center, [facility] [address] [place] [address] Dania White PA-C [address] [place] [address] 02/17/20 1:40 PM EDT [facility] [address] [place] [address] Pacheco Ortega, DO [address] [place] [address] 03/03/20 2:00 PM EDT Procedure Only Urology, [facility] [address] [place] [address] Enrique Wall MD [address] [place] [address] 03/05/20 7:45 AM EDT Hospital Encounter OR [facility], Operating Room [facility] [address] [place] [phone] Veronica Abraham MD [address] [place] [address] 03/05/20 7:45 AM EDT - 03/05/20 9:09 AM EDT Surgery [facility], Operating Room [facility] [address] [place] [phone] Veronica Abraham MD [address] [place] [address] REPAIR INITIAL INGUINAL HERNIA REDUCIBLE AGE 5 OR MORE 03/09/20 24 10:00 AM EDT Telemedicine Neuroendocrine , [place] [address] [facility] [place] [id number] Clinic, Neuroendocrine Multidisciplinary [address] [facility] [place] [id number] 03/22/20 1:30 PM EDT Office Visit General Surgery, [facility] [address] [facility] [place] [address] Veronica Abraham MD [address] [place] [address] 04/28/20 9:00 AM EST Hospital Encounter ENDO [facility], Endoscopy Room [facility] 132 [facility] [place] [address] Delta Rodriguez MD [address] [place], [place] [address] 04/28/20 9:00 AM EST - 04/28/20 9:30 AM EST [facility] [address] [facility] [place] [phone] Delta Rodriguez MD [address] [place] [address] ESOPHAGOGASTRODUODENOSCOPY (EGD), FLEXIBLE, TRANSORAL, DIAGNOSTIC 12/15/19 3:30 PM EDT Office Visit Cardiology, [facility] [place] [address] Kassandra Sam CRNP [address] [place] [address] [place] [address] Scheduled Procedures Name Priority Associated Diagnoses Date/Ti [...] Priority Associated Diagnoses Orde r Schedule PULMONARY REFERRAL OP Referral Within 30 days (routine) Mild persistent asthma without complication Ordered: 2024 Health Maintenance Due Date Last Done Comments Cologuard 01/08/2001 Fecal Occult Blood Test 01/08/2001 Sigmoidoscopy 01/08/2001 COVID-19 Vaccine (2022- season) 2024 05/31/2023, 11/04/2022, 04/26/2021, Additional history exists Postponed from 09/30/2023 (Patient Declined After Education) Influenza Vaccine (FLU shot) (#1) 2024 04/03/2023, [...] this encounter Medical Devices Implanted Type Area Conference Assistant Device Identifier Shelf Expiration Date Model / Serial / Lot Graft Lyoplnt 2.5x2.5cm 1x1 - [id number] Implanted:Qty: 1 on 03/07/2022 by Valeriano Hathaway MD at [place] [facility] [place] KIRKP[place]RICK : AESCULAP [id number] 10/20/2026 [id number] / [id number] / [id number] Graft Lyoplnt 2.5x2.5cm 1x1 - [id number] Implanted:Qty: 1 on 03/07/2022 by Valeriano Hathaway MD at OR [facility] [place] : AESCULAP [id number] 10/20/2026 [id number] / [id number] / [id number] documented as of this encounter Visit Diagnoses Diagnosis Left inguinal hernia- Primary Inguinal hernia without mention of obstruction or gangrene, unilateral or unspecified, (not specified as recurrent) Mild persistent asthma without complication- Primary Unspecified asthma COVID-19 ROBERT (obstructive sleep apnea) Obstructive sleep apnea (adult) (pediatric) Left inguinal hernia Inguinal hernia without mention [...] the patient have Health Care Power of Pulmonary Nurse Practitioner? No * Full Code Date Activated Date [...] Directives occurred with: Not Discussed Care Teams Packer Operator Automatic Relationship Specialty Start Date End Date Bandar Bailon DO [address] [place] [address] PCP - General Family Medicine 10/10/20 documented as of this encounter
--- OUTSIDE RECORDS SUMMARY | 2024-05-10 05:49 | External Medical Summary | Summary of Care ---
Author Name Unknown Organization [facility] Address [address] [facility] [place] [address] Phone [phone] Care Team Providers Care Angular Developer Name Role Phone Bailon Bandartwin Garrisonpiryanka Primary Care Provider Reason for Referral * Evaluate & Treat - Unlimited Visits (Within 30 days (routine)) - Authorized Specialty Diagnoses / Procedures Referred By Contramiro t Referred To Contact Pulmonary Diseases / Pulmonary Diagnoses Mild persistent asthma without complication Yusuf Felipe MD [address] [place] [address] Referral ID Status Reason Start Date Expiration Date Visits Requested Visits Authorized [id number] Authorized Specialty Services Required 2024 999 999 [...] Description 2024 9:00 AM EDT Office Visit [facility] [address] [place] [address] Yusuf Felipe MD [address] [place] [address] Mild persistent asthma without complication*; COVID-19; ROBERT [...] (=3 months supply). [facility] at [address] [place], [place] [address]e [facility], [address], [place] [address]. 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 Increased risk for Long QT Syndrome. Cardiac [...] mRNA, LNP-s, No Pre serve, 2-Dose Series (Obviousidea) 04/26/2021,10/20/2020,09/27/2020 COVID-19, MRNA-LNP, 23-24, P F, 51 [...] 24 3:00 PM EDT Office Visit Podiatry [facility] [address] [facility] [place] [address] Zoya Casas DPM [address] [place] [address] [place] [address] 01/22/20 24 1:30 PM EDT Office Visit Interventional Pain Center, [facility] [address] [place] [address] Dania White PA-C [address] [place] [address] 02/17/20 1:40 PM EDT Office Visit Neurology [facility] [address] [place] [address] Pacheco Ortega, DO [address] [place] [address] 03/03/20 2:00 PM EDT Procedure Only Urology, [facility] [address] [place] [address] Enrique Wall MD [address] [place] [address] 03/05/20 7:45 AM EDT Hospital Encounter OR [facility], Operating Room [facility] [address] [place] [phone] Veronica Abraham MD [address] [place] [address] 03/05/20 7:45 AM EDT - 03/05/20 9:09 AM EDT Surgery OR [facility], Operating Room [facility] [address] [place] [phone] Veronica Abraham MD [address] [place] [address] REPAIR INITIAL INGUINAL HERNIA REDUCIBLE AGE 5 OR MORE 03/09/20 24 10:00 AM EDT Telemedicine Neuroendocrine , [place] [address] [facility] [place] [id number] Clinic, Neuroendocrine Multidisciplinary [address] [facility] [place] [id number] 03/22/20 1:30 PM EDT Office Visit General Surgery, [facility] [address] [facility] [place] [address] Veronica Abraham MD [address] [place] [address] 04/28/20 9:00 AM EST Hospital Encounter ENDO [facility], Endoscopy Room [facility] [address] [facility] [place] [address] Delta Rodriguez MD [address] [place] [address] 04/28/20 9:00 AM EST - 04/28/20 9:30 AM EST [facility] [address] [facility] [place] [phone] Delta Rodriguez MD [address] [place] [address] ESOPHAGOGASTRODUODENOSCOPY (EGD), FLEXIBLE, TRANSORAL, DIAGNOSTIC 12/15/19 3:30 PM EDT Office Visit Cardiology, [facility] [place] [address] Kassandra Sam CRNP [address] [place] [address] [place] [address] Scheduled Procedures Name Priority Associated Diagnoses Date/Ti [...] this encounter Medical Devices Implanted Type Area Revival Clerk Device Identifier Shelf Expiration Date Model / Serial / Lot Graft Lyoplnt 2.5x2.5cm 1x1 - [id number] Implanted:Qty: 1 on 03/07/2022 by Valeriano Hathaway MD at [place] [facility] [place] : AESCULAP [id number] 10/20/2026 [id number] / [id number] / [id number] Graft Lyoplnt 2.5x2.5cm 1x1 - [id number] Implanted:Qty: 1 on 03/07/2022 by Valeriano Hathaway MD at [place] [facility] [place] : AESCULAP [id number] 10/20/2026 [id number] / [id number] / [id number] documented as of this encounter Visit Diagnoses [...] the patient have Health Care Power of Stenocaptioner? No * Full Code Date Activated Date [...] Directives occurred with: Not Discussed Care Teams Angular Developer Relationship Specialty Start Date End Date Bandar Bailon DO [address] [place] [address] PCP - General Family Medicine 10/10/20 documented as of this encounter
--- OUTSIDE RECORDS SUMMARY | 2024-05-10 05:49 | External Medical Summary | Summary of Care ---
Author Name Unknown Organization [facility] Address [address] [facility] [place] [address] Phone [phone] Care Team Providers Care Director Graphics Name Role Phone Bandar Bailon DO Primary Care Provider Encounter Details Date Type Department Care Team (Late st Contact Info) Description 01/08/2024 Orders Only Family Practice [facility] [address] [place] [address] Bandar [...] as of this encounter (statuses as of 01/08/2024) Medications Medication Sig Dispensed Refills Start Date [...] each (=3 months supply). [facility] at [address] [place] [address], [facility] [address], [place] [id number]. 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 Increased risk for Long QT Syndrome. 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 [address] [place] [address] Yusuf Felipe MD [address] [place] [address] 01/19/20 3:00 PM EDT Office Visit Podiatry [facility] [address] [place] [address] Zoya Casas, DOUGLAS [address] [facility] [place] [address] 01/22/20 1:30 PM EDT Office Visit Interventional Pain Center, [facility] [address] [place] [address] Dania White PA-C [address] [place] [address] 02/17/20 1:40 PM EDT Office Visit Neurology [facility] [address] [place] [address] Pacheco Ortega, DO [address] [place] [address] 03/03/20 2:00 PM EDT Procedure Only Urology, [facility] [address] [place] [address] Enrique Wall MD [address] [place] [address] [place] [address] 03/05/20 7:45 AM EDT Hospital Encounter OR [facility], Operating Room [facility] [address] [place] [phone] Veronica Abraham MD [address] [place] [address] 03/05/20 7:45 AM EDT - 03/05/20 9:09 AM EDT Surgery OR [facility], Operating Room [facility] [address] [place] [phone] Veronica Abraham MD [address] [place] [address] REPAIR INITIAL INGUINAL HERNIA REDUCIBLE AGE 5 OR MORE 03/09/20 24 10:00 AM EDT Telemedicine Neuroendocrine , [place] [address] [place] [address] Clinic, Neuroendocrine [facility] [address] [place] [address] 03/22/20 24 1:30 PM EDT Office Visit General Surgery, [facility] [address] [place] [address] Veronica Abraham MD [address] [place] [address] 04/28/20 24 9:00 AM EST [facility] [address] [place] [phone] Delta Rodriguez MD [address] [place] [address] 04/28/20 24 9:00 AM EST - 04/28/20 24 9:30 AM EST Surgery ENDO [facility], Endoscopy Room [facility] [address] [place] [phone] Delta Rodriguez MD [address] [place] [address] ESOPHAGOGASTRODUODENOSCOPY (EGD), FLEXIBLE, TRANSORAL, DIAGNOSTIC 12/15/19 25 3:30 PM EDT Office Visit Cardiology, [facility] [address] [place] [address] Kassandra Sam CRNP [address] [place] [address] [place] [address] Pending Results Name Type Priority Associated Diagnoses Date /Time OUTSIDE LAB-CORONAVIRUS (COVID-19) Lab Routine 01/06/2024 Scheduled Procedures Name Priority Associated Diagnoses Date/Ti [...] encounter Medical Devices Implanted Type Area Senior Etl Developer Device Identifier Shelf Expiration Date Model / Serial / Lot Graft Lyoplnt 2.5x2.5cm 1x1 - [id number] Implanted:Qty: 1 on 03/07/2022 by Valeriano Hathaway MD at [place] [facility] [place] : AESCULAP [id number] 10/20/2026 [id number] / [id number] / [id number] Graft Lyoplnt 2.5x2.5cm 1x1 - [id number] Implanted:Qty: 1 on 03/07/2022 by Valeriano Hathaway MD at [place] [facility] [place] : AESCULAP [id number] 10/20/2026 [id number] / [id number] / [id number] documented as of this encounter Advance Directives [...] the patient have Health Care Power of Chute Tender? No * Full Code Date Activated Date [...] occurred with: Not Discussed Care Teams Director Graphics Relationship Specialty Start Date End Date Bandar Bailon DO [address] [place] [address] PCP - General Family Medicine 10/10/20 documented as of this encounter
--- OUTSIDE RECORDS SUMMARY | 2024-05-10 05:49 | External Medical Summary | Summary of Care ---
Author Name Unknown Organization [facility] Address [address] [facility] [place] [address] Phone [phone] Care Team Providers Care Power Press Tender Name Role Phone Bandar Bailon DO Primary Care Provider Reason for Referral * Evaluate & Treat - Unlimited Visits (Within 10 days (routine)) - Authorized Specialty Diagnoses / Procedures Referred By Luz castillo Referred To Contact Pulmonary Diseases / Pulmonary Diagnoses Moderate persistent asthma without complication Bandar Bailon DO [address] [place] [address] Referral ID Status Reason Start Date Expiration Date Visits Requested Visits Authorized [id number] Authorized Specialty Services Required 01/17/[phone] Question Answer Referral Priority Within 10 days (routine) Where should this appointment be scheduled? [facility] Primary Reason for Referral? 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 Took benedryl and inhaler and stopped med. Codeine Other (Please comment) Medium 04/23/2017 Allergic reaction Other reaction(s): UNSURE REACTION - HAPPENED A CHILD Sulfa Antibiotics High 05/22/2022 Other reaction(s): Swelling of Lip/Tongue/Throat documented as of this encounter (statuses as of 01/17/2024) Medications Medication Sig Dispensed Refills Start Date [...] each (=3 months supply). [facility] [address], [address], [place] [address]. 1 g 09/13/19 23 Active Mupirocin 2 % External Ointment (Bactroban) Apply to affected toenail sites once daily. Cover with dry bandage. 22 g 05/24/20 23 Active Additional Information Patient not taking.Reported on 11/24/2023 Atorvastatin Calcium 20 MG Oral Tablet (Lipitor) TAKE 1 TABLET BY MOUTH IN THE MORNING 90 Tablet 1 03/13/20 Active Restasis 0.05 % Ophthalmic EmulsionIndicatio ns:Pituitary macroadenoma (HCC) Instill 1 Drop into both eyes in the morning and 1 Drop before bedtime. 180 Each 3 03/13/20 Active levETIRAcetam 500 MG Oral Tablet (Keppra) Take 1 Tablet by mouth in the morning and 1 Tablet before bedtime. 180 Tablet 1 03/14/20 Active Montelukast Sodium 10 MG Oral Tablet (Singulair)Indica tions:Mild persistent asthma without complication Take 1 Tablet by mouth at bedtime. 90 Tablet 3 03/13/20 Active Hydrocortisone 5 MG Oral Tablet (Cortef) take 2 tablets in the morning , 1 tablet at lunch and 1 tablet at supper, double or triple dose during sickness 400 Tablet 1 03/14/20 Active Vitamin D3 20 MCG (800 UNIT) Oral Tablet Take 1capsule by mouth in the morning. 90 Tablet 3 04/08/20 Active Albuterol Sulfate HFA 108 (90 Base) MCG/ACT Inhalation Aerosol Solution Inhale 2 Puffs by mouth every 6 hours as needed for Wheezing. 54 g 1 04/08/20 Active Diclofenac Sodium 50 MG Oral Tablet Delayed Release (Voltaren)Indicat ions:Lumbar degenerative disc disease,Lumbar radiculopathy Take 1 Tablet by mouth in the morning and 1 Tablet before bedtime. With food.. 180 Tablet 04/08/20 Active Famotidine 40 MG Oral Tablet (Pepcid) Take 1 tablet by mouth daily. 90 Tablet 1 04/10/20 Active Dicyclomine HCl 10 MG Oral Capsule (Bentyl) Take 1 Capsule by mouth 2 times a day as needed for Cramping. 180 Capsule 3 04/09/20 Active DULoxetine HCl 60 MG Oral Capsule Delayed Release Particles (Cymbalta) Take 1 Capsule by mouth in the morning. Do not cut, crush or chew. 90 Capsule 5 04/15/20 Active Mesalamine 1.2 GM Oral Tablet Delayed Release (Lialda) take two tablets by mouth daily 180 Tablet 3 05/06/20 Active Omeprazole 20 MG Oral Capsule Delayed [...] MEALS 360 Tablet 3 11/12/19 24 Active Cyanocobalamin 1000 MCG/ML Injection Solution (Cyanocobalamin) INJECT 1,000 MCG (1ML) INTRAMUSCULARLY DIRECTED FOR 30 DAYS 3 mL 11/13/19 24 Active Nadolol 40 MG Oral Tablet (Corgard)Indicati ons:NSVT (nonsustained ventricular tachycardia) (HCC) Take 1 Tablet by mouth in the morning. 90 Tablet 1 12/03/19 24 Active Potassium Chloride ER 10 MEQ Oral Capsule Extended ReleaseIndication s:Hypokalemia TAKE ONE CAPSULE BY MOUTH IN THE MORNING AND ONE CAPSULE BEFORE BEDTIME 180 Capsule 2 12/29/19 24 Active Trelegy Ellipta 200-62.5-25 MCG/ACT Aerosol Powder Breath Activated (Fluticasone-Umec lidinium-Vilanter ol)Indications:Mo derate persistent asthma without complication Inhale 1 Puff by mouth every morning. 60 Blister Dosing Unit 11 01/17/20 24 Active Fluticasone Furoate 100 MCG/ACT Inhalation Aerosol Powder Breath Activated (ARNUITY ellipta) inhale 1 puff daily. Rinse mouth out following use. 90 Each 1 09/21/ 024 Discontinued Azithromycin 250 MG Oral Tablet (Zithromax) Take 1 Tablet by mouth in the morning. 01/06/20 024 Discontinued(Or dication List Clean Up) predniSONE 20 MG Oral Tablet (Deltasone) Take 1 Tablet by mouth in the morning. 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 Increased risk for Long QT Syndrome. 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 Asthma, mild persistent 04/29/2012 Overview: Allergic component ROBERT (obstructive sleep apnea) 02/01/2010 Overview: documented as of this encounter (statuses as of 01/17/2024) Resolved Problems Problem Noted Date Diagnosed Date [...] as of this encounter (statuses as of 01/17/2024) Immunizations Name Administration Dates Next Due COVID-19 mRNA, LNP-s, No Pre serve, 2-Dose Series ([employer]) 04/26/2021,10/20/2020,09/27/2020 COVID-19, MRNA-LNP, 23-24, P F, [...] Never Smokeless Tobacco: Never Tobacco Cessation:Counseling Given: Yes Alcohol Use Standard Drinks/Week Comments Yes 0 [...] Sign Reading Time Taken Comments Blood Pressure 110/60 01/17/2024 2:37 PM EDT Pulse 66 01/17/2024 2:37 PM EDT Temperature 36.7 C (98 F) 01/17/2024 2:37 PM EDT Respiratory Rate 16 01/17/2024 2:37 PM EDT Oxygen Saturation - - Inhaled Oxygen Concentration - - Weight 83 kg (183 lb) 01/17/2024 2:37 PM EDT Height 168.3 cm (5' 6.25") 01/17/2024 2:37 PM ED T Body Mass Index 29.31 01/17/2024 2:37 PM EDT documented in this encounter Functional Status Functional Status Response Date of Assess ment Do you have serious difficul ty walking or climbing stairs? (5 years old or older) Yes-as per pt he gets short of breathe 03/08/2022 documented as of this encounter Progress Notes * Bandar Bailon, - 01/17/2024 2:39 PM EDT Images from the original note were not included. Assessment and Plan Moderate persistent asthma without complication SOB and wheezing on current regimen Along with frequent use of albuterol (2-3 times per day) Will change of address clerk to LABA/ICS and continue albuterol PRN for breakthrough sx F/u with pulm as he has in past - Trelegy Ellipta 200-62.5-25 MCG/ACT Aerosol Powder Breath Activated (Gocykjbluqd-Stqqmaavjiil-Jgthoydgqb); Inhale 1 Puff by mouth every morning. - PULMONARY REFERRAL OP Pituitary macroadenoma (HCC) S/p surgical intervention Hyperprolactinemia ([facility]) Stable, continue to follow Adrenal disease ([facility]) stable Tachy-dell syndrome ([facility]) Stable rate SVT (supraventricular tachycardia) ([facility]) stable Seizure disorder, simple partial, without intractable epilepsy ([facility]) No recent seisu Crohn's disease of small intestine without complication ([facility]) Stable stool sx S/P transsphenoidal hypophysectomy ([facility]) stable History of Present Illness Félix De La O is a 69 year old male that presents for Acute Presents in f/u today Has been having ongoing SOB and wheezing weeks After covid infection Feels as though his overall asthma control has been worse And he has been using his albuterol more frequently Was in ER and had duonebs which seemed to help Home regimen doesn't seem to be keeping him well controlled right now Physical Exam Vitals: 01/17/24 1437 Temp: 36.7 C (98 F) Pulse: 66 Resp: 16 BP: 110/60 BMI: 29.31 Physical Exam Constitutional: Appearance: Normal appearance. HENT: Head: Normocephalic and atraumatic. Eyes: Extraocular Movements: Extraocular movements intact. Pupils: Pupils are equal, round, and reactive to light. Cardiovascular: Rate and Rhythm: Normal rate. Pulses: Normal pulses. Pulmonary: Effort: Pulmonary effort is normal. No respiratory distress. Breath sounds: No stridor. Wheezing present. No rhonchi or rales. Neurological: General: No focal deficit present. Mental Status: He is alert and oriented to person, place, and time. Psychiatric: Mood and Affect: Mood normal. Behavior: Behavior normal. Wrap-Up Follow-up: Return in about 6 months (around 07/19/2024). | Check-out note: Every other with AP Time: Total time today was 41 minutes excluding any time spent in the performance of separately billed services. documented in this encounter Nursing Notes * Radha Alfaro LPN - 01/17/2024 2:33 PM EDT Patient states was seen er on 01/05. Continues with cough and some sob--states also dizziness at times documented in this encounter Plan of Treatment Upcoming Encounters Date Type Department Care Team (Late st Contact Info) Description 01/19/20 3:00 PM EDT Office Visit Podiatry [facility] [address] [place] [address] Zoya Casas, DPNaomy [address] [facility] [place] [id number] 01/22/20 1:30 PM EDT Office Visit Interventional Pain Center, [facility] [address] [place] [address] Dania White PA-C [address] [place] [address] 02/17/20 1:40 PM EDT Office Visit Neurology [facility] [address] [place] [address] Pacheco Ortega DO [address] [facility] [place] [address] 03/03/20 24 2:00 PM EDT Procedure Only Urology, [facility] [address] [place] [address] Enrique Wall MD [place] [address] 03/05/20 7:45 AM EDT Hospital Encounter OR [facility], Operating Room [facility] [address] [place] [phone] Veronica Abraham MD [address] [place] [address] 03/05/20 7:45 AM EDT - 03/05/20 8:59 AM EDT Surgery OR [facility], Operating Room [facility] [address] [place] [phone] Veronica Abraham MD [address] [place] [address] REPAIR INITIAL INGUINAL HERNIA REDUCIBLE AGE 5 OR MORE 03/09/20 10:00 AM EDT Telemedicine Neuroendocrine , [place] [address] [place] [address] Clinic, Neuro[facility]ocrine [facility] [address] [place] [address] 03/22/20 1:30 PM EDT Office Visit General Surgery, [facility] [address] [place] [address] Veronica Abraham MD [address] [place] [address] 04/28/20 9:00 AM EST Hospital Encounter ENDO [facility], Endoscopy Room [facility] [address] [place] [phone] Delta Rodriguez MD [address] [place] [address] 04/28/20 9:00 AM EST - 04/28/20 9:30 AM EST Surgery ENDO [facility], Endoscopy Room [facility] [address] [place] [phone] Delta Rodriguez MD [address] [place] [address] ESOPHAGOGASTRODUODENOSCOPY (EGD), FLEXIBLE, TRANSORAL, DIAGNOSTIC 07/20/19 3:00 PM EST Office Visit [facility] [address] [place] [address] Torri Urbano CRNP [address] [facility] [place] [address] 12/15/19 3:30 PM EDT Office Visit Cardiology, [facility] [address] [place] [address] Kassandra Sam CRNP [address] [facility] [place] [address] 01/19/20 3:00 PM EDT Office Visit [facility] [address] [place] [address] Bandar Bailon DO [address] [facility] [place] [address] Scheduled Procedures Name Priority Associated Diagnoses Date/Ti [...] r Schedule PULMONARY REFERRAL OP Referral Within 10 days (routine) Moderate persistent asthma without complication Ordered: 01/17/2024 Health Maintenance Due Date Last Done Comments [...] this encounter Medical Devices Implanted Type Area Local City Driver Device Identifier Shelf Expiration Date Model / Serial / Lot Graft Lyoplnt 2.5x2.5cm 1x1 - [id number] Implanted:Qty: 1 on 03/07/2022 by Valeriano Hathaway MD at OR [facility] [place] : [employer] [id number] 10/20/2026 [id number] / [id number] / [id number] Graft Lyoplnt 2.5x2.5cm 1x1 - [id number] Implanted:Qty: 1 on 03/07/2022 by Valeriano Hathaway MD at OR [facility] [place] : AESROELP [id number] 10/20/2026 [id number] / [id number] / [id number] documented as of this encounter Visit Diagnoses Diagnosis Left inguinal hernia- Primary Inguinal hernia without mention of obstruction or gangrene, unilateral or unspecified, (not specified as recurrent) Moderate persistent asthma without complication- Primary Unspecified asthma Pituitary macroadenoma (HCC) Benign neoplasm of pituitary gland and craniopharyngeal duct (pouch) Hyperprolactinemia (HCC) Other and unspecified anterior pituitary hyperfunction Adrenal disease (HCC) Unspecified disorder of adrenal glands Tachy-dell syndrome (HCC) Sinoatrial node dysfunction SVT (supraventricular tachycardia) (HCC) Other specified cardiac dysrhythmias Seizure disorder, simple partial, 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 No * Full Code Date Activated [...] Directives occurred with: Not Discussed Care Teams Power Press Tender Relationship Specialty Start Date End Date Bandar Bailon DO [address] [place] [address] PCP - General Family Medicine 10/10/20 documented as of this encounter
--- OUTSIDE RECORDS SUMMARY | 2024-05-10 05:49 | External Medical Summary | Summary of Care ---
Author Name Unknown Organization [facility] Address [address] [place] [address] Phone [phone] Care Team Providers Care Coverage Specialist Rn Name Role Phone Bandar Bailon Primary Care Provider Reason for Visit * Reason Comments Follow Up Toenails Encounter Details Date Type Department Care Team (Late st Contact Info) Description 01/19/2024 3:00 PM EDT Office Visit Podiatry [facility] [address] [facility] [place] [address] Zoya Casas, [address] [facility] [address] Pain in toes of both feet*; Onychomycosis; Hereditary and idiopathic peripheral neuropathy Allergies Active [...] as of this encounter (statuses as of 01/19/2024) Medications Medication Sig Dispensed Refills Start Date [...] each (=3 months supply). [facility] at [address] [place] [address], [address], [place] [address]. 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 Increased risk for Long QT Syndrome. 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 Asthma, mild persistent 04/29/2012 Overview: Allergic component ROBERT (obstructive sleep apnea) 02/01/2010 Overview: documented as of this encounter (statuses as of 01/19/2024) Resolved Problems Problem Noted Date Diagnosed Date [...] as of this encounter (statuses as of 01/19/2024) Immunizations Name Administration Dates Next Due COVID-19 mRNA, LNP-s, No Pre serve, 2-Dose Series ([employer]k) 04/26/2021,10/20/2020,09/27/2020 COVID-19, MRNA-LNP, 23-24, P F, 51 [...] as of this encounter Progress Notes * Zoya Casas, DOUGLAS - 01/19/2024 3:00 PM EDT Podiatry Established Note [facility] Name: Félix De La O : 1955 Date: 01/19/2024 REASON FOR VISIT: nail procedure SUBJECTIVE: This patient is a 69 year old male who presents today requesting toenails be removed permanently. I had done this on certain toenails > 1 year ago, but regrowth is noted on those toenails. He reports a difficulty trimming these. They have caused pain when the nail gets thick/long. Hedoes have a history of neuropathy. He reports getting a spinal cord stimulator soon. Past Medical History: Diagnosis Date Anesthesia complication 10/13/2017 Breathing issues Asthma Benign neoplasm of colon 05/05/2012 COLONOSCOPY FLEXIBLE PROXIMAL DIAGNOSTIC performed by Jerod Asencio MD at [facility],path shows active Crohn's , benign [...] Sleep apnea, obstructive Tachy-dell syndrome (HCC) 10/20/2019 ALLERGIES: Review of patient's allergies indicates: Allergen Reactions Sulfa Antibiotics Other reaction(s): Swelling of Lip/Tongue/Throat Codeine Other (Please comment) Allergic reaction Other reaction(s): UNSURE REACTION - HAPPENED A CHILD Bactrim [Sulfamethoxazole-Trimethoprim] Itching Pt noted total body itching within one hour of first dose. Took benedryl and inhaler and stopped med. REVIEW OF SYSTEMS: N/A Vascular: Pedal pulses palpable including dorsalis pedis and posterior tibial artery at 2/4 bilaterally. Capillary refill time is within normal limits to all toes. Non pitting edema noted to the lower legs. Nowarmth. Absence of pedal hair growth noted. Skin temperature is cool. Neurologic: Sensation (light touch) intact to the bilateral lower extremities. Musculoskeletal: Mild pain with palpation of toes 1-5 bilaterally at the level of the nail. Dermatological: No open lesions. There is no erythema or ecchymosis noted. Some chronic appearing skin discoloration to the anterior lower legs. No interdigital changes. Toenails 1-5 bilaterally are thickened >3-4mm and discolored (yellow, white, brown). Subungual debris noted to all nails. The bilateral great toenails have not fully grown back as there are some thinner areas within the nails. DIAGNOSTIC STUDIES: Hemoglobin AIC Results: Lab Results Component Value Date/Time HEMOGLOBIN A1C - [facility] 5.7 (H) 05/06/2023 09:33 AM HEMOGLOBIN A1C - [facility] 5.5 04/26/2022 02:45 PM HEMOGLOBIN A1C - [facility] 5.8 (H) 10/23/2021 10:03 AM HEMOGLOBIN A1C - [facility] 5.5 07/27/2014 11:22 AM HEMOGLOBIN A1C - [facility] 5.5 03/21/2014 02:12 PM HEMOGLOBIN A1C - [facility] 5.3 01/28/2014 12:25 PM ASSESSMENT: 1. Pain in toes of both feet 2. Onychomycosis TA T1 T2 T3 T4 T5 T6 T7 T8 T9 3. Hereditary and idiopathic peripheral neuropathy PLAN: Procedure We discussed the option of total nail avulsions including a chemical matrixectomy to prevent recurrence of the thickened impinging toenails. I explained to the patient risks, benefits, alternatives, and complications to this procedure. Complications include but are not limited to: infection, swellin g, bleeding, pain, nail regrowth, and recurrence. The patient provided consent for this procedure. All toenails 1-5 bilaterally are to be done. A time out was performed prior to the start. Non OR time Out: Time out was initiated under direction and supervision of provider Zoya Casas DPM. Correct patient identity - Yes Correct side and site - Yes Procedure matches verbalized consent -Yes Correct patient position - Yes Availability of correct implants and any special equipment or special requirements - Yes Time out occurred prior to procedure start - Yes Prophylactic antibiotic timing confirmed - N/A Witness present & agrees with the time out process. The left first toe was prepped with alcohol. Ethyl chloride spray was used. 4mL of 1% lidocaine plain was injected into the left first toe. A toe tourniquet was applied. Once the patient was under the appropriate plane of local anesthesia, the offending total nail border was removed. This was done with an elevator and hemostat. A sodium hydroxide 10% dipped cotton tipped applicator was placed at t he level of the matrix beneath the cuticle at the site of the avulsed nail border. This was performed for 60 seconds and one additional 60 second application was performed. Acetic acid was then administered into the area to neutralize and dilute the chemical. Antibiotic ointment and a light dressing was applied to the toe. The tourniquet was removed. The left second toe was prepped with alcohol. Ethyl chloride spray was used. 2mL of 1% lidocaine plain was injected into the left second toe. A toe tourniquet was applied. Once the patient was under the appropriate plane of local anesthesia, the offending total nail border was removed. This was done with an elevator and hemostat. A sodium hydroxide 10% dipped cotton tipped applicator was placed at the level of the matrix beneath the cuticle at the site of the avulsed nail border. This was performed for 60 seconds and one additional 60 second application was performed. Acetic acid was then administered into the area to neutralize and dilute the chemical. Antibiotic ointment and a light dressing was applied to the toe. The tourniquet was removed. The left third toe was prepped with alcohol. Ethyl chloride spray was used. 2mL of 1% lidocaine plain was injected into the left third toe. A toe tourniquet was applied. Once the patient was under the appropriate plane of local anesthesia, the offending total nail border was removed. This was done with an elevator and hemostat. A sodium hydroxide 10% dipped cotton tipped applicator was placed at t he level of the matrix beneath the cuticle at the site of the avulsed nail border. This was performed for 60 seconds and one additional 60 second application was performed. Acetic acid was then administered into the area to neutralize and dilute the chemical. Antibiotic ointment and a light dressing was applied to the toe. The tourniquet was removed. The left fourth toe was prepped with alcohol. Ethyl chloride spray was used. 2mL of 1% lidocaine plain was injected into the left fourth toe. A toe tourniquet was applied. Once the patient was under the appropriate plane of local anesthesia, the offending total nail border was removed. This was done with an elevator and hemostat. A sodium hydroxide 10% dipped cotton tipped applicator was placed at the level of the matrix beneath the cuticle at the site of the avulsed nail border. This was performed for 60 seconds and one additional 60 second application was performed. Acetic acid was then administered into the area to neutralize and dilute the chemical. Antibiotic ointment and a light dressing was applied to the toe. The tourniquet was removed. The left fifth toe was prepped with alcohol. Ethyl chloride spray was used. 2mL of 1% lidocaine plain was injected into the left fifth toe. A toe tourniquet was applied. Once the patient was under the appropriate plane of local anesthesia, the offending total nail border was removed. This was done with an elevator and hemostat. A sodium hydroxide 10% dipped cotton tipped applicator was placed at t he level of the matrix beneath the cuticle at the site of the avulsed nail border. This was performed for 60 seconds and one additional 60 second application was performed. Acetic acid was then administered into the area to neutralize and dilute the chemical. Antibiotic ointment and a light dressing was applied to the toe. The tourniquet was removed. The right first toe was prepped with alcohol. Ethyl chloride spray was used. 2mL of 1% lidocaine plain was injected into the right first toe. A toe tourniquet was applied. Once the patient was under the appropriate plane of local anesthesia, the offending total nail border was removed. This was done with an elevator and hemostat. A sodium hydroxide 10% dipped cotton tipped applicator was placed at the level of the matrix beneath the cuticle at the site of the avulsed nail border. This was performed for 60 seconds and one additional 60 second application was performed. Acetic acid was then administered into the area to neutralize and dilute the chemical. Antibiotic ointment and a light dressing was applied to the toe. The tourniquet was removed. The right second toe was prepped with alcohol. Ethyl chloride spray was used. 2mL of 1% lidocaine plain was injected into the right second toe. A toe tourniquet was applied. Once the patient was under the appropriate plane of local anesthesia, the offending total nail border was removed. This was done with an elevator and hemostat. A sodium hydroxide 10% dipped cotton tipped applicator was placedat the level of the matrix beneath the cuticle at the site of the avulsed nail border. This was performed for 60 seconds and one additional 60 second application was performed. Acetic acid was then administered into the area to neutralize and dilute the chemical. Antibiotic ointment and a light dres sing was applied to the toe. The tourniquet was removed. The right third toe was prepped with alcohol. Ethyl chloride spray was used. 2mL of 1% lidocaine plain was injected into the right third toe. A toe tourniquet was applied. Once the patient was under the appropriate plane of local anesthesia, the offending total nail border was removed. This was done with an elevator and hemostat. A sodium hydroxide 10% dipped cotton tipped applicator was placed at the level of the matrix beneath the cuticle at the site of the avulsed nail border. This was performed for 60 seconds and one additional 60 second application was performed. Acetic acid was then administered into the area to neutralize and dilute the chemical. Antibiotic ointment and a light dressing was applied to the toe. The tourniquet was removed. The right fourth toe was prepped with alcohol. Ethyl chloride spray was used. 2mL of 1% lidocaine plain was injected into the right fourth toe. A toe tourniquet was applied. Once the patient was under the appropriate plane of local anesthesia, the offending total nail border was removed. This was done with an elevator and hemostat. A sodium hydroxide 10% dipped cotton tipped applicator was placedat the level of the matrix beneath the cuticle at the site of the avulsed nail border. This was performed for 60 seconds and one additional 60 second application was performed. Acetic acid was then administered into the area to neutralize and dilute the chemical. Antibiotic ointment and a light dres sing was applied to the toe. The tourniquet was removed. The right fifth toe was prepped with alcohol. Ethyl chloride spray was used. 2mL of 1% lidocaine plain was injected into the right fifth toe. A toe tourniquet was applied. Once the patient was under the appropriate plane of local anesthesia, the offending total nail border was removed. This was done with an elevator and hemostat. A sodium hydroxide 10% dipped cotton tipped applicator was placed at the level of the matrix beneath the cuticle at the site of the avulsed nail border. This was performed for 60 seconds and one additional 60 second application was performed. Acetic acid was then administered into the area to neutralize and dilute the chemical. Antibiotic ointment and a light dressing was applied to the toe. The tourniquet was removed. I instructed the patient to keep the dressing to the toe clean, dry, and intact until this evening or tomorrow. They may then remove the dressing and bath as normal. Antibiotic ointment and a bandaidare to be applied once daily until area heals, approximately 7-10 days. They are to call sooner with any questions or concerns. Zoya Casas DPM documented in this encounter Nursing Notes * Winter Knox LPN - 01/19/2024 2:39 PM EDT Pt presents for follow up regarding toenails, requesting removal of remaining toenails. Had nails L toes 1, 2, 5 and R toes 1, 2 removed 10/2022. documented in this encounter Plan of Treatment Upcoming Encounters Date Type Department Care Team (Late st Contact Info) Description 01/22/20 1:30 PM EDT Office Visit Interventional Pain Center, [facility] [address] [facility] [place] [address] Dania White PA-C [address] [facility] [place] [address] 01/29/20 24 10:40 AM EDT Office Visit Pulmonary Medicine, [facility] [address] [facility] [place] [address] Rigoberto [facility]iter [facility] [address] [facility] [address] 02/17/20 24 1:40 PM EDT Office Visit Neurology [facility] [address] [place] [address] Pacheco Ortega, [address] [place] [address] 03/03/20 2:00 PM EDT Procedure Only Urology, [facility] [address] [place] [address] Enrique Wall MD [address] [place] [address] 03/05/20 7:45 AM EDT Hospital Encounter OR [facility], Operating Room [facility] [address] [place] [id number] Veronica Abraham MD [address] [place] [address] 03/05/20 7:45 AM EDT - 03/05/20 8:59 AM EDT Surgery OR [facility], Operating Room [facility] [address] [place] [phone] Veronica Abraham MD [address] [place] [address] REPAIR INITIAL INGUINAL HERNIA REDUCIBLE AGE 5 OR MORE 03/09/20 24 10:00 AM EDT Telemedicine Neuroendocrine , [facility] [address] [place] [address] Clinic, Neuroendocrine Multidisciplinary [address] [place] [address] 03/22/20 24 1:30 PM EDT Office Visit General Surgery, [facility] [address] [place] [address] Veronica Abraham MD [address] [place] [address] 04/28/20 24 9:00 AM EST Hospital Encounter ENDO [facility], Endoscopy Room [facility] [address] [place] [id number] Delta Rodriguez MD [address] [place] [address] 04/28/20 9:00 AM EST - 04/28/20 9:30 AM EST Surgery ENDO [facility], Endoscopy Room [facility] [address] [place] [phone] Delta Rodriguez MD [address] [place] [address] ESOPHAGOGASTRODUODENOSCOPY (EGD), FLEXIBLE, TRANSORAL, DIAGNOSTIC 07/20/19 3:00 PM EST Office Visit [facility] [address] [place] [address] Torri Urbano CRNP [address] [place] [address] 12/15/19 3:30 PM EDT Office Visit Cardiology, [facility] [address] [facility] [place] [address] Kassandra Sam CRNP [address] [place] [address] [place] [address] 01/19/20 3:00 PM EDT Office Visit [facility] [address] [place] [address] Bandar Bailon DO [address] [place] [address] Scheduled Procedures Name Priority Associated Diagnoses Date/Ti [...] 01/08/2001 Sigmoidoscopy 01/08/2001 COVID-19 Vaccine (2022- season) 2023 05/31/2023, 11/04/2022, [...] this encounter Medical Devices Implanted Type Area Fish Liver Sorter Device Identifier Shelf Expiration Date Model / Serial / Lot Graft Lyoplnt 2.5x2.5cm 1x1 - [id number] Implanted:Qty: 1 on 03/07/2022 by Valeriano Hathaway MD at OR [facility] B KIRKPATRICK : AESCULAP [id number] 10/20/2026 [id number] / [id number] / [id number] Graft Lyoplnt 2.5x2.5cm 1x1 - [id number] Implanted:Qty: 1 on 03/07/2022 by Valeriano Hathaway MD at OR [facility] B KIRKPATRIKC : AESCULAP [id number] 10/20/2026 [id number] / [id number] / [id number] documented as of this encounter Visit Diagnoses Diagnosis Left inguinal hernia- Primary Inguinal hernia without mention of obstruction or gangrene, unilateral or unspecified, (not specified as recurrent) Pain in toes of both feet- Primary Onychomycosis Dermatophytosis of nail Hereditary and idiopathic peripheral neuropathy Unspecified hereditary and idiopathic peripheral neuropathy Left inguinal hernia Inguinal hernia without mention [...] patient have Health Care Power of Program Trainer? No * Full Code Date Activated Date [...] Directives occurred with: Not Discussed Care Teams Coverage Specialist Rn Relationship Specialty Start Date End Date Bandar Bailon DO [address] [place] [address] PCP - General Family Medicine 10/10/20 documented as of this encounter
[2024-05-10] MEDS: LACTATED RINGER'S 1,000 ML IV SCH (06:16)
[2024-05-10] MEDS ORDERED: ROCURONIUM BROMIDE 10 MG/ML 5 ML VIAL IV ONE (06:40)
[2024-05-10] MEDS ORDERED: fentaNYL citrate PF 100 MCG/2 ML VIAL ONE (06:40)
[2024-05-10] MEDS ORDERED: MIDAZOLAM HCL 1 MG/ML 2ML VIAL ONE (06:40)
[2024-05-10] MEDS ORDERED: LIDOCAINE 2% 2 ML VIAL/AMP(20MG/ML) INFIL ONE (06:40)
[2024-05-10] MEDS ORDERED: PROPOFOL IV EMULSION 10 MG/ML 20 ML VIAL IV ONE (06:40)
[2024-05-10] MEDS ORDERED: ONDANSETRON INJ 2 MG/ML 2 ML VIAL ONE (06:44)
--- NOTE | 2024-05-10 06:55 | History & Physical Bridge Note ---
Date of Service May 10, 2024 History & Physical Bridge Note I have examined the patient, reviewed the History & Physical and in the interval since the performance of the History & Physical I have noted the following changes of clinical significance: no changes noted
[2024-05-10] MEDS: ceFAZolin 2000MG 2,000 MG/15 ML SYR IV SCH (07:07)
[2024-05-10] MEDS ORDERED: ePHEDrine sulfate 50 MG/5 ML SYR ONE (07:24)
[2024-05-10] MEDS ORDERED: HYDROCORTISONE SOD SUCCINATE 100 MG/2 ML VIAL ONE (07:24)
[2024-05-10] MEDS ORDERED: ATROPINE SULFATE 0.1 MG/ML 10ML SYR IV PRN (07:31)
[2024-05-10] MEDS ORDERED: FLUMAZENIL 0.1 MG/1 ML 10 ML VIAL IV PRN (07:31)
[2024-05-10] MEDS ORDERED: ONDANSETRON INJ 2 MG/ML 2 ML VIAL IV PRN ×2 (07:31→09:53)
[2024-05-10] MEDS ORDERED: NALOXONE HCL 0.4 MG/1 ML VIAL/CARP IV PRN (07:31)
[2024-05-10] MEDS ORDERED: PROMETHAZINE HCL 6.25 MG in SODIUM CHLORIDE 0.9% 50 ML IV PRN (07:31)
[2024-05-10] MEDS ORDERED: ePHEDrine sulfate 50 MG/ML AMP IV PRN (07:31)
[2024-05-10] MEDS ORDERED: PHENYLEPHRINE HCL 10 MG/ML VIAL ONE (07:35)
[2024-05-10] MEDS ORDERED: SUGAMMADEX SODIUM 200 MG/2 ML VIAL IV ONE (08:09)
--- NOTE | 2024-05-10 08:14 | Post Operative Brief Note ---
Immediate Post Op Note Date of Surgery May 10, 2024 Pre & Post Diagnosis Operation Date: 05/10/24 07:15 Pre-Op Diagnosis: Left Inguinal Hernia Post-Op Diagnosis: Left Inguinal Hernia I identified the patient and participated in the time-out.: Yes Procedure Operation Date: 05/10/24 07:15 Actual Procedures p Left Laparoscopic Inguinal Hernia with Mesh, Possible Right Inguinal Hernia Repair with Mesh, and Open Umbilical Hernia Repair, Possible Mesh(Left) - Khalif Wall MD Surgeon Khalif Wall MD [employer] Engineer Sergeant ROS Silva assisted with tissue retraction, camera op, closure Estimated Blood Loss 5 Findings Consistent with Post-Op Diagnosis
[2024-05-10] MEDS: BUPIVACAINE/EPINEPHRINE 0.25% 1:200,000 30 ML VIAL ONE (08:16)
--- NOTE | 2024-05-10 08:17 | Operative Report ---
Post Operative Report Pre & Post Diagnosis Operation Date: 05/10/24 07:15 Pre-Op Diagnosis: Left Inguinal Hernia Post-Op Diagnosis: Left Inguinal Hernia I identified the patient and participated in the time-out.: Yes Procedure Operation Date: 05/10/24 07:15 Actual Procedures p Left Laparoscopic Inguinal Hernia with Mesh, Possible Right Inguinal Hernia Repair with Mesh, and Open Umbilical Hernia Repair, Possible Mesh(Left) - Khalif Wall MD Surgeon Khalif Wall MD Oil Burner Servicer And Installer ROS Silva assisted with tissue retraction, camera op, closure Estimated Blood Loss 5 Findings Consistent with Post-Op Diagnosis left indirect and direct hernia; no hernia noted on the right; small umbilical hernia, 1.5 cm diameter Specimens none Drains none Anesthesia Type General Complications none Description of Procedure the patient was taken to the operating room, and placed supine on the operating table. A timeout was performed, perioperative antibiotics were administered, SCD boots were placed. After adequate anesthesia and analgesia was obtained, the abdomen was prepped and draped in the normal sterile fashion. A 1 cm incision was made in the supraumbilical region and carried down to the level of the fascia. There was a small hernia in this location. It was dissected free circumferentially, and the hernia sac was excised to the level of the fascia. We entered the abdominal cavity and placed a Prather trocar. The abdomen was insufflated to pressure of 15 mmHg. A 10 mm, 30 degree laparoscope was placed into the abdominal cavity, and the abdomen was surveyed. The findings were as follows: left indirect and direct hernia; no hernia noted on the right side Two 5 mm trochars were placed bilaterally under direct visualization. The patient was placed in Trendelenburg position. The peritoneum on the left side was incised with scissor cautery. This was carried out laterally. The peritoneum was then swept down away from the anterior abdominal wall towards the inguinal canal. The hernia was reduced, and care was taken to avoid injury to the inferior epigastrics and contents of the inguinal canal. Once this is complete a large left 3D max light mesh was brought onto the field and maneuvered down the 12 mm port. It was unfurled in the abdomen and maneuvered into position covering the inguinal region. The mesh was then secured into place with the tacker. Once this was complete, the peritoneum was closed over the top of the mesh again with the tacker. Attention was turned to hemostasis, which is excellent. All trochars were removed under direct visualization. The fascia in the 12 mm hernia site was closed with interrupted 2-0 Prolene suture. The skin was closed with running 4- 0 Monocryl subcuticular stitch. Dermabond was applied. The patient tolerated the procedure without complication, and was transferred in stable condition to the PACU. All instrument, needle, and sponge counts were correct at the end of the case. my multimedia assistant was necessary throughout the procedure for tissue retraction, possible camera operation, and closure of the wounds. I understand that section 1842(b)(7)(D) of the Social Security act generally prohibits Medicare physician fee schedule payment for the services of assistants at surgery in teaching hospitals when qualified residents are available to furnish such services. I certify that the services for which payment is claimed were medically necessary and that no qualified resident was available to perform the services. I further understand that these services are subject to postpayment review by the Medicare carrier. I attest to the content of the Intraoperative Record and any orders documented therein. Any exceptions are noted below.
[2024-05-10] MEDS: fentaNYL citrate PF 100 MCG/2 ML VIAL IV PRN (09:00)
--- NOTE | 2024-05-10 09:27 | Anesthesiology Progress Note ---
Date of Service May 10, 2024 Anesthesia Post Procedure Vital Signs Vital Signs: Temp Pulse Pulse Resp BP Pulse Ox O2 Del Method 05/10/24 09:20 36.9 C 60 18 117/76 95 Nasal Cannula 05/10/24 09:10 60 12 114/77 94 Nasal Cannula 05/10/24 09:00 60 12 112/71 94 Nasal Cannula 05/10/24 08:50 60 12 114/71 95 Nasal Cannula 05/10/24 08:40 37.1 C 60 16 108/73 93 Oxymask 05/10/24 06:10 36.7 C 68 18 114/91 97 Room Air O2 Flow Rate 05/10/24 09:20 3 05/10/24 09:10 3 05/10/24 09:00 3 05/10/24 08:50 3 05/10/24 08:40 10 05/10/24 06:10 Pain Intensity Abdomen: Pain Intensity: 4 Transfer of Care Handoff Completed per policy Notes Mental Status: alert / awake / arousable Patient Amnestic to Procedure: Yes Nausea / Vomiting: adequately controlled Pain: adequately controlled Airway Patency, RR, SpO2: stable & adequate BP & HR: stable & adequate Hydration State: stable & adequate Anesthetic Complications: no major complications apparent
[2024-05-10] MEDS ORDERED: PROMETHAZINE 12.5 MG/50.5 ML BAG IV PRN (09:53)
[2024-05-10] MEDS ORDERED: diphenhydrAMINE Capsule 25 MG CAP PO PRN (09:53)
[2024-05-10] MEDS ORDERED: KETOROLAC 30 MG/ML VIAL IV PRN (09:53)
[2024-05-10] MEDS ORDERED: oxyCODONE/ACETAMINOPHEN 5mg/325mg TAB PO PRN (09:53)
[2024-05-10] MEDS ORDERED: MoRPHine SULFATE 2 MG/ML CARP IV PRN (09:53)
[2024-05-10] MEDS ORDERED: DICYCLOMINE HCL 10 MG CAP PO PRN (13:03)
[2024-05-10] MEDS ORDERED: ALBUTEROL HFA 8 GM INHALER INH PRN (13:03)
--- NOTE | 2024-05-10 13:23 | Consultation ---
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 Wall. status post left laparoscopic inguinal hernia repair, small umbilical hernia repair, POD #[address] 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 Bandar Bailon Dispo: per primary Thank you for this consultation. We will follow the patient with you during their hospital stay. You can reach a member of the [facility] Hospitalist Team 13/01 via hospitalist role on tiger text. I spent a total of 60 minutes reviewing notes, outpatient records, labs, medication, coordinating, documenting and providing care for this patient excluding time spent in the performance of separately billed services. Pt was seen and examined in collaboration with Dr. Hightower, please see addendum Supervising Physician Co-Signing Physician Notes Pt seen and examined post op at the bedside. He has O2 in place at 2 L/min(chronic). Other than some mild incisional pain he feels ok. He denies CP, SOB, Palpitations, N or V. Chart and data reviewed. He received a stress dose of hydrocortisone. I agree with the ANAND assessment and plan as above. A total of 12 minutes spent in the care of this patient. Thank you Dr. Wall for the consult. History of Present Illness Requesting Physician: Dr. 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 Wall. Postoperatively he has no acute concerns. He confirms that he took 100 mg of hydrocortisone this morning based on recommendations from his neuroendocrinologist. He tolerated a clear liquid diet. He is currently having incisional pain rated a 6 out of 10. He chronically wears oxygen at baseline of 2 L. He denies any shortness of breath. He denies any recent illness, fever, chills, chest pain, nausea, vomiting or change in bowel or urinary habits. He reports he has chronic difficulty urinating and follows with Dr. Wall of urology. His medications were reviewed and reconciled. Discussed with nurse who offers no acute concerns. History was obtained from patient as well as outpatient chart review. He denies any current tobacco or illicit drug use. He does occasionally use alcohol approximately 2 times a week. He lives alone by himself and occasionally ambulates with a walker. Allergies Allergy/AdvReac Type Severity Reaction Status Date / Time Sulfa (Sulfonamide Allergy Severe Swelling Verified 05/10/24 05:55 Antibiotics) of Lip/Tongue/Throat, SOB codeine Allergy Unknown Unknown Verified 05/10/24 05:55 Home Medications Medication Instructions Recorded Confirmed Type albuterol sulfate 2.5 mg/3 mL 2.5 mg inhalation Q4H PRN 02/07/22 05/10/24 History (0.083 %) solution for nebulization Shortness Of Breath Or Wheezing albuterol sulfate 90 mcg/actuation 2 puff inhalation Q6 PRN Wheezing 02/07/22 05/10/24 History aerosol inhaler aspirin 81 mg chewable tablet 81 mg PO QAM 02/07/22 05/10/24 History atorvastatin 20 mg tablet (Lipitor) 20 mg PO QAM 02/07/22 05/10/24 History calcium 600 mg (as 2 tab PO QAM 02/07/22 05/10/24 History carbonate)-vitamin D3 5 mcg (200 unit) tablet cholecalciferol (vitamin D3) 10 20 mcg PO QAM 02/07/22 05/10/24 History mcg (400 unit) tablet (Vitamin D3) cyanocobalamin (vitamin B-12) 1,000 mcg IM MONTHLY 02/07/22 05/10/24 History 1,000 mcg/mL injection solution cyclosporine 0.05 % eye drops in a 1 drp OPB [facility] 02/07/22 05/10/24 History dropperette (Restasis) dicyclomine 10 mg capsule 10 mg PO BID PRN CRAMPING 02/07/22 05/10/24 History duloxetine 60 mg capsule,delayed 60 mg PO QAM 02/07/22 05/10/24 History release (Cymbalta) famotidine 40 mg tablet (Pepcid) 40 mg PO QAM 02/07/22 05/10/24 History hydrocortisone 5 mg tablet See Rx Instructions .Route .COMPLEX 02/07/22 05/10/24 History hydrocortisone sod succinate 100 100 mg IM DIRECTED PRN ADRENAL 02/07/22 05/10/24 History mg solution for injection CRISIS (Solu-Cortef) levetiracetam 500 mg tablet 500 mg PO BID 02/07/22 05/10/24 History (Keppra) metoclopramide HCl 10 mg tablet 10 mg PO ACHS 02/07/22 05/10/24 History (Reglan) montelukast 10 mg tablet 10 mg PO HS 02/07/22 05/10/24 History (Singulair) nadolol 40 mg tablet (Corgard) 40 mg PO QAM 02/07/22 05/10/24 History omeprazole 40 mg capsule,delayed 40 mg PO QAM 02/07/22 05/10/24 History release pregabalin 150 mg capsule (Lyrica) See Rx Instructions .Route .COMPLEX 02/07/22 05/10/24 History diclofenac sodium 50 mg 50 mg PO BID 01/31/23 05/10/24 History tablet,delayed release potassium chloride 10 mEq 10 meq PO BID 01/31/23 05/10/24 History capsule,extended release fluticasone fur. 200 mcg-umeclid 1 inh inhalation QAM 05/04/24 05/10/24 History 62.5 mcg-vilant 25 mcg inhalat.powder (Trelegy Ellipta) mesalamine 1.2 gram tablet,delayed 2.4 g PO QAM 05/04/24 05/10/24 History release (Lialda) ropinirole 2 mg tablet 2 mg PO HS 05/10/24 05/10/24 History Patient History Medical History Hx of small bowel obstruction Restless leg syndrome Neuropathy Gastroparesis Per records Castro's disease Pacemaker Medtronic 12/[address] Sy Seizure Last seizure ~ Follows with [facility] Neurology History of COVID-19 Multiple Most recent 12/2023 - treated at [facility] inpatient Pituitary macroadenoma NSVT (nonsustained ventricular tachycardia) Pacemaker - [facility] Dr Sy Degenerative disc disease Epidural injections/denervation done in past Future SCS placement planned Osteoarthritis GERD (gastroesophageal reflux disease) Overactive thyroid gland Radiation Therapy - no meds Dry eye syndrome Transient ischemic attack (TIA) Multiple Sleep apnea BiPAP (intermittent use) Tachy-dell syndrome s/p PPM - [facility] Dr Sy Crohn's disease BPH (benign prostatic hyperplasia) Asthma, mild persistent Surgical History PONV (postoperative nausea and vomiting) Hx of hernia repair H/O endoscopic sinus surgery pt states, [facility] and scrape it." Hx of esophagogastroduodenoscopy Hx of colonoscopy History of appendectomy History of surgical removal of pituitary gland Patient unsure if partial or total (2021) History of anesthesia reaction "Slow to under and slow to wake up" History of tooth extraction History of cataract surgery Bilateral Family History Mother Family history of diabetes mellitus Father History of colon resection Brother History of colon resection Other No family history of adverse response to anesthesia Social History Smoking Status: Never smoker Second Hand Exposure: No; Do You Dip or Chew Tobacco: No; Tobacco Cessation Education Requested by Patient: No Hx Alcohol Use: Yes Alcohol type: beer, wine and hard liquor Hx Substance Use: No Preferred Language: Estonian Communication Ability: Effective 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: No Beliefs That Will Affect Care: None marital status: Single Current Living Situation: Alone Current Living Situation Comment: Apartment Other Information That Helps Us Care for You: No Feels Safe at Home: Yes Safety Concerns: Feels Safe At This Time Assistive Devices: BiPap, Denture - Upper and Other Assistive Devices Comment: Lower partial Review of Systems Review of Systems: All systems reviewed & are unremarkable except as noted in HPI & below Physical Exam Physical Exam: Constitutional: Chronically ill appearing male, vitals as above, NAD, sitting up in bed, pleasant, conversing easily Head: Normocephalic, Atraumatic Eyes: PERRL, conjunctivae normal, anicteric sclerae ENMT: external ear and nose normal, oropharynx normal Neck: trachea midline, no thyromegaly normal visual inspection Respiratory: normal respiratory effort, lungs clear to auscultation, no wheeze, rales, rhonchi. Normal insp/exp effort, no accessory muscle use Cardiovascular: RRR, no murmur, no edema Vessels: no JVD or carotid bruit Chest: normal inspection of chest Abdomen: normal bowel sounds, soft, nontender, no hepatosplenomegaly, + laparoscopic surgical incision x 3, no erythema Musculoskeletal: no cyanosis or clubbing, AROM x 4 Skin: no rashes, warm and dry normal turgor Neurologic: no face palsy, no dysarthria CN's II-XI intact bilaterally and moves all extremities Psychiatric: A+Ox3, euthymic affect Results & Data Vital Signs (Past 12 Hours) Vital Signs Temp Pulse Pulse Resp BP Pulse Ox O2 Del Method 05/10/24 12:40 36.4 C L 63 16 97/63 L 91 Nasal Cannula 05/10/24 11:40 61 18 108/71 97 Nasal Cannula 05/10/24 10:39 36.5 C 60 18 109/71 95 Nasal Cannula 05/10/24 10:11 36.7 C 59 L 16 111/73 96 Nasal Cannula 05/10/24 10:09 Nasal Cannula 05/10/24 10:09 36.5 C 60 16 99/71 L 95 Nasal Cannula 05/10/24 09:20 36.9 C 60 18 117/76 95 Nasal Cannula 05/10/24 09:10 60 12 114/77 94 Nasal Cannula 05/10/24 09:00 60 12 112/71 94 Nasal Cannula 05/10/24 08:50 60 12 114/71 95 Nasal Cannula 05/10/24 08:40 37.1 C 60 16 108/73 93 Oxymask 05/10/24 06:10 36.7 C 68 18 114/91 97 Room Air O2 Flow Rate 05/10/24 12:40 2.0 05/10/24 11:40 2.0 05/10/24 10:39 2 05/10/24 10:11 2 05/10/24 10:09 2 05/10/24 10:09 2 05/10/24 09:20 3 05/10/24 09:10 3 05/10/24 09:00 3 05/10/24 08:50 3 05/10/24 08:40 10 05/10/24 06:10 Laboratory Results I have independently reviewed and interpreted patient's pre op labs including CBC, CMP Diagnostic Findings Pre op CXR reviewed. WNL + Pacemaker Medications Administered Current Inpatient Medications Albuterol (Albuterol Hfa 8 Gm Inhaler) 2 puffs INH Q6 PRN PRN Reason: Wheezing Stop: 06/09/24 13:02 Aspirin (Aspirin 81 Mg Chew) 81 mg PO QAM G[facility]A Stop: 06/10/24 08:59 Atorvastatin Calcium (Atorvastatin 20 Mg Tab) 20 mg PO QAM [place] Stop: 06/10/24 08:59 Atropine Sulfate (Atropine Sulfate 0.1 Mg/Ml 10ml Syr) 0.5 mg IV Q1M PRN PRN Reason: PACU Use-HR<40 &/or Bradycardi Stop: 05/10/24 15:31 Dicyclomine HCl (Dicyclomine Hcl 10 Mg Cap) 10 mg PO BID PRN PRN Reason: CRAMPING Stop: 06/09/24 13:02 Diphenhydramine HCl (Diphenhydramine Capsule 25 Mg Cap) 25 mg PO Q4H PRN PRN Reason: hives, itching or insomnia Stop: 06/09/24 09:52 Duloxetine HCl (Duloxetine Hcl 60 Mg Cap) 60 mg PO QAM [facility] Stop: 06/10/24 08:59 Enoxaparin Sodium (Enoxaparin Inj 40 Mg/0.4 Ml Syr) 40 mg SQ Q24H G[place]ILEA Stop: 06/10/24 07:59 Ephedrine Sulfate (Ephedrine Sulfate 50 Mg/Ml Amp) 5 mg IV Q5M PRN PRN Reason: PACU Use Only-SBP<90 mmHg Stop: 05/10/24 15:31 Famotidine (Famotidine 40 Mg Tablet) 40 mg PO QAM [facility] Stop: 06/10/24 08:59 Fentanyl Citrate (Fentanyl Citrate Pf 100 Mcg/2 Ml Vial) 25 mcg IV Q5M PRN PRN Reason: PACU Use Only-Pain Stop: 05/10/24 15:31 Last Admin: 05/10/24 09:05 Dose: 25 mcg Flumazenil (Flumazenil 0.1 Mg/1 Ml 10 Ml Vial) 0.2 mg IV Q2M PRN PRN Reason: PACU Use Only-Benzo Reversal Stop: 05/10/24 15:31 Hydrocortisone (Hydrocortisone 10 Mg Tab) 0 mg PO .COMPLEX GALILEA Stop: 06/09/24 13:14 Lactated Ringer's (Lr) 1,000 mls @ 15 mls/hr IV .Q24H G[place]ILEA Stop: 05/11/24 05:59 Last Infusion: 05/10/24 07:03 Dose: Infused Cefazolin Sodium (Ancef 2000mg) 2,000 mg in 15 mls @ 3.75 mls/min IV PREOP GALILEA; Protocol Stop: 05/10/24 18:00 Last Admin: 05/10/24 07:07 Dose: 3.75 mls/min Promethazine HCl 6.25 mg/ (Sodium Chloride) 50.25 mls @ 204 mls/hr IV ONCE PRN PRN Reason: PACU Use Only-Nausea/Vomiting Stop: 05/10/24 15:31 Promethazine HCl (Phenergan) 12.5 mg in 50.5 mls @ 202 mls/hr IV Q6H PRN PRN Reason: Nausea And Vomiting Stop: 06/09/24 09:52 Ketorolac Tromethamine (Ketorolac 30 Mg/Ml Vial) 30 mg IV Q6H PRN PRN Reason: Pain & Pre PT Stop: 05/15/24 09:52 Levetiracetam (Levetiracetam 500 Mg Tab) 500 mg PO BID [facility] Stop: 06/09/24 20:59 Metoclopramide HCl (Metoclopramide Hcl 10 Mg Tablet) 10 mg PO ACHS [facility] Stop: 06/09/24 16:29 Montelukast Sodium (Montelukast Sodium 10 Mg Tablet) 10 mg PO HS [facility] Stop: 06/09/24 20:59 Morphine Sulfate (Morphine Sulfate 2 Mg/Ml Carp) 2 mg IV Q3H PRN PRN Reason: Pain (1,2,3,4,5) & Pre PT Stop: 05/24/24 09:52 Nadolol (Nadolol 40 Mg Tab) 40 mg PO QAM [facility] Stop: 06/10/24 08:59 Naloxone HCl (Naloxone Hcl 0.4 Mg/1 Ml Vial/Carp) 0.2 mg IV Q2M PRN PRN Reason: PACU Use Only-Opiate Reversal Stop: 05/10/24 15:31 Non-Formulary Medication (Ysgdnkdhlwj-Semsveupr-Autlkcog [Trelegy Ellipta]) 1 puffs INH QAM [facility] Stop: 06/10/24 08:59 Non-Formulary Medication (Cyclosporine [Restasis]) 1 drops OPB AM[facility] Stop: 06/09/24 20:59 Non-Formulary Medication (Omeprazole) 40 mg PO QAM [facility] Stop: 06/10/24 08:59 Ondansetron HCl (Ondansetron Inj 2 Mg/Ml 2 Ml Vial) 4 mg IV ONCE PRN PRN Reason: PACU Use Only-Nausea/Vomiting Stop: 05/10/24 15:31 Ondansetron HCl (Ondansetron Inj 2 Mg/Ml 2 Ml Vial) 4 mg IV Q4H PRN PRN Reason: Nausea And Vomiting Stop: 06/09/24 09:52 Oxycodone/Acetaminophen (Oxycodone/Acetaminophen 5mg/325mg Tab) 1 tab PO Q4H PRN PRN Reason: MODERATE Pain (4,5,6) & Pre PT Stop: 05/24/24 09:52 Oxycodone/Acetaminophen (Oxycodone/Acetaminophen 5mg/325mg Tab) 2 tab PO Q4H PRN PRN Reason: SEVERE Pain (7,8,9,10) Stop: 05/24/24 09:52 Pregabalin (Pregabalin 150 Mg Cap) 0 mg PO .COMPLEX G[place]A Stop: 06/09/24 13:14 Ropinirole HCl (Ropinirole Hcl 2 Mg Tablet) 2 mg PO HS [facility] Stop: 06/09/24 20:59 Vitamin D (Cholecalciferol 10 Mcg (400 Units) Tab) 20 mcg PO QAM [facility] Stop: 06/10/24 08:59 ECG Additional Comments: I have independently reviewed and interpreted patient's admitting EKG which revealed: 61 bpm, no st or t wave changes , RBBB qtc 436ms
[2024-05-10] MEDS ORDERED: ARTIFICIAL TEARS OP PRN (13:41)
[2024-05-10] MEDS: oxyCODONE/ACETAMINOPHEN 5mg/325mg TAB PO PRN (14:27)
[2024-05-10] MEDS ORDERED: METOCLOPRAMIDE HCL 10 MG TABLET PO SCH (16:30)
[2024-05-10] MEDS: DOCUSATE SODIUM 100 MG CAP PO SCH (20:10)
[2024-05-10] MEDS: PREGABALIN 150 MG CAP PO SCH (20:10)
[2024-05-10] MEDS: rOPINIRole HCL 2 MG TABLET PO SCH (20:11)
[2024-05-10] MEDS: MONTELUKAST SODIUM 10 MG TABLET PO SCH (20:11)
[2024-05-10] MEDS: HYDROCORTISONE 10 MG TAB PO SCH (20:11)
[2024-05-10] MEDS: levETIRAcetam 500 MG TAB PO SCH (20:11)
[2024-05-10 23:13] VITALS: TEMP 97.3
[2024-05-11 06:58] VITALS: BP 107/68; PULSE 63; RESP 18; O2SAT 97
[2024-05-11 07:00] LABS: Basophils # (auto) 0.02 K/uL (0.00-0.20); Basophils % (auto) 0.3 %; Eosinophils % (auto) 1.3 %; Hematocrit (blood only) 41.4 % (42.0-52.0); Hemoglobin 13.1 g/dl (14.0-18.0); Immature Granulocytes # (auto) 0.04 K/uL (0.01-0.20); Immature Granulocytes % (auto) 0.5 %; Lymphocytes # (auto) 1.17 K/uL (1.20-3.40); Lymphocytes % (auto) 14.7 %; Mean Corpuscular Hemoglobin 28.5 pg (25.0-34.0); Mean Corpuscular Hgb Conc 31.6 g/dL (32.0-36.0); Mean Platelet Volume 10.9 fL (9.4-12.4); Monocytes # (auto) 0.69 K/uL (0.11-0.59); Monocytes % (auto) 8.7 %; Neutrophils # (auto) 5.95 K/uL (1.40-6.50); Neutrophils % (auto) 74.5 %; Platelet Count 206 K/uL (130-400); RDW Coefficient of Variation 12.6 % (11.5-14.5); RDW Standard Deviation 41.5 fL (36.4-46.3); White Blood Count 7.97 K/ul (4.8-10.8)
[2024-05-11 07:20] LABS: BUN Creatinine Ratio 20.5 (10-20); Calcium 8.8 mg/dl (8.6-10.3); Creatinine Clr Calc Pharmacy 80.8 ml/min; Potassium 3.6 mmol/L (3.5-5.1)
[2024-05-11] MEDS: ENOXAPARIN INJ 40 MG/0.4 ML SYR SQ SCH (08:05)
[2024-05-11] MEDS: FAMOTIDINE 40 MG TABLET PO SCH (08:08)
[2024-05-11] MEDS: CHOLECALCIFEROL 10 MCG (400 UNITS) TAB PO SCH (08:08)
[2024-05-11] MEDS: nadoloL 40 MG TAB PO SCH (08:09)
[2024-05-11] MEDS: ATORVASTATIN 20 MG TAB PO SCH (08:09)
[2024-05-11] MEDS: DULoxetine HCL 60 MG CAP PO SCH (08:09)
[2024-05-11] MEDS: PANTOprazole 40 MG TAB PO SCH (08:09)
[2024-05-11] MEDS: FLUTICASONE FUROATE 200MCG 14 PUFFS/INHALER INH SCH (08:12)
[2024-05-11] MEDS: PREGABALIN 150 MG CAP PO SCH (08:12)
[2024-05-11] MEDS: UMECLIDINIUM/VILANTEROL 62.5/25MCG 7 PUFFS/INHALER INH SCH (08:12)
[2024-05-11] MEDS: ASPIRIN 81 MG CHEW PO SCH (08:14)
[2024-05-11] MEDS ORDERED: NON-FORMULARY MEDICATION (Fluticasone-Umeclidin-Vilanter [Trelegy Ellipta] 200-62.5-25 mcg INH SCH (09:00)
--- NOTE | 2024-05-11 11:29 | Hospitalist Progress Note ---
Date of Service May 11, 2024 Assessment & Plan (1) S/P left inguinal hernia repair: (2) Adrenal insufficiency: (3) Chronic hypoxic respiratory failure: Plan: On chronic home oxygen (4) Seizure disorder: Plan Patient has done well with his medical issues in the setting of inguinal hernia repair. Medically ready for discharge when ready for discharge from a surgical standpoint. Recommend patient double his hydrocortisone dose for the next couple days and then can resume his usual dosing. Should continue his other outpatient medications. Admission and Anticipated Discharge Date Admission Date: May 10, 2024 Subjective Patient states he feels well. No acute issues overnight. Feels ready to go home. Patient is on chronic oxygen at home Physical Exam Physical Exam: Constitutional: Alert, nontoxic HEENT: Mucous membranes moist. Lungs: decreased, no wheezes or rails CV: S1-S2, regular Abdomen: Soft, nondistended Extremities: No significant edema Neuro: No focal deficits Psych: Cooperative, normal mood Results & Data Results & Data Vital Signs (Past 12 Hours) Vital Signs Temp Pulse Resp BP BP Pulse Ox O2 Del Method 05/11/24 07:07 Nasal Cannula 05/11/24 06:55 36.3 C L 63 18 107/68 97 Nasal Cannula 05/11/24 03:38 60 05/11/24 03:36 36.3 C L 97/63 L 05/11/24 03:30 22 96 O2 Flow Rate 05/11/24 07:07 2 05/11/24 06:55 2 05/11/24 03:38 05/11/24 03:36 05/11/24 03:30 2 Diagnostic Findings Reviewed imaging, laboratory and diagnostic studies. Pertinent findings as below. Electrolytes stable Creatinine 0.88
[2024-05-11] MEDS: HYDROCORTISONE 10 MG TAB PO SCH (12:18)
--- OUTSIDE RECORDS SUMMARY | 2024-05-11 18:57 | External Medical Summary | Summary of Care ---
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 Took benedryl and inhaler and stopped med. Codeine Other (Please comment) Medium 04/23/2017 Allergic reaction Other reaction(s): UNSURE REACTION - HAPPENED A CHILD Sulfa Antibiotics High 05/22/2022 Other reaction(s): Swelling of Lip/Tongue/Throat documented as of this encounter (statuses as of 05/11/2024) Medications OXYGEN oxygen at 2 lpm via [...] (=3 months supply). [facility] at [address] [place] [address], [address], [place] [address]. 1 g 09/13/19 23 Active Mupirocin 2 % External Ointment (Bactroban) Apply to affected toenail sites once daily. Cover with dry bandage. 22 g 3 3:52 PM EDT 11/14/19 23 Active levETIRAcetam 500 MG Oral Tablet [...] in the morning. 90 Capsule 3 4 1:50 PM EST 05/08/20 23 Active rOPINIRole HCl 2 MG [...] of Breath. 360 mL 01/30/20 24 Active BD Luer-Eli Syringe 22G X [...] mouth at bedtime 90 Capsule 2 4 10:46 AM EST 04/16/20 24 Active Atorvastatin Calcium 20 MG Oral Tablet (Lipitor)Indicati ons:Dyslipidemia TAKE 1 TABLET BY MOUTH IN THE MORNING 90 Tablet 4 10:51 AM EST 05/08/20 24 Active Cyanocobalamin 1000 MCG/ML Injection Solution (Cyanocobalamin)I ndications:B12 deficiency INJECT 1,000 MCG (1ML) INTRAMUSCULARLY DIRECTED FOR 30 DAYS 3 mL 1 05/10/20 Active Hospital, Clinic, or Other Facility Administered Medication Ordered Dose Route Frequency Start Date End Date Status Albuterol Sulfate (Proventil) (2.5 MG/3ML) 0.083% inhalation solution 2.5 mgIndications:Mild persistent asthma without complication,SOB (shortness of breath) 2.5 mg NEBULIZER Q4H PRN 05/30/2021 Act mary jo documented as of this encounter (statuses as of 05/11/2024) Active Problems Problem Noted Date Diagnosed Date [...] Overview (03/18/2018): 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 Increased risk for Long QT Syndrome. 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 Asthma, mild persistent 04/29/2012 Overview (04/29/2012): Allergic component ROBERT (obstructive sleep apnea) 02/01/2010 Overview (03/03/2018): documented as of this encounter (statuses as of 05/11/2024) Resolved Problems Problem Noted Date Diagnosed Date [...] as of this encounter (statuses as of 05/11/2024) Immunizations Name Administration Dates Next Due COVID-19 mRNA, LNP-s, No Pre serve, 2-Dose Series (Mebelrama) 04/26/2021,10/20/2020,09/27/2020 COVID-19, MRNA-LNP, PF, 50 M CG/0.5 [...] No 04/13/2024 Does the household have a [facility] source of income? 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 Not on file Not [...] Care Team (Late st Contact Info) Description 05/12/2024 1:00 PM EST Telemedicine Psychology [facility] [address] [place] [address] 2, [facility] [address] [place] [address] 05/19/2024 8:40 AM EST Office Visit Pulmonary Medicine, [facility] [address] [place] [address] Rigoberto Lassiter MD [address] [facility] [place] [id number] 05/19/2024 1:00 PM EST Telemedicine Psychology [facility] [address] [place] [address] 2, [facility] [address] [place], [place] [address] 05/26/2024 9:30 AM EST Office Visit General Surgery, [facility] [address] [place] [address] Khalif Wall MD [address] [place] [address] 05/26/2024 1:00 PM EST Telemedicine [facility] [place] [facility] [address] [place] [address] 2, [facility] [address] [place] [address] 06/02/2024 1:00 PM EST [facility] [address] [place] [address] 2, [facility] [address] [place] [address] 06/09/2024 1:00 PM EST [facility] [address] [place] [address] 2, [facility] [address] [place] [phone] 06/30/2024 1:00 PM EST Telemedicine Psychology [facility] [facility] [address] [place] [phone] 2, [facility] [address] [place] [phone] 07/07/2024 1:00 PM EST Telemedicine Psychology [place] [facility] [address] [place] [phone] 2, [facility] [address] [place] [phone] 07/14/2024 1:00 PM EST Telemedicine Psychology [facility] [address] [place] [phone] 2, [facility] [address] [place] [phone] 07/20/2024 3:00 PM EST Office [facility] [address] [facility] [address] [facility] [address] [facility] [address] 12/14/2024 3:30 PM EDT Office Visit Cardiology, [facility] [address] [facility] [place] [address] Kassandra Sam CRNP [address] [facility] [place] [address] 01/18/2025 3:00 PM EDT Office Visit Family Practice [facility] [address] [facility] [place] [address] Bandar [facility]ailon DO [address] [facility] [place] [address] Scheduled Procedures Name Priority Associated Diagnoses Date/Ti [...] this encounter Medical Devices Implanted Type Area Bolt Cutter Device Identifier Shelf Expiration Date Model / Serial / Lot Graft Lyoplnt 2.5x2.5cm 1x1 - [id number] Implanted:Qty: 1 on 03/07/2022 by Valeriano Hathaway MD at [place] [facility] [place] : AESCULAP [id number] 10/20/2026 [id number] / [id number] / [id number] Graft Lyoplnt 2.5x2.5cm 1x1 - [id number] Implanted:Qty: 1 on 03/07/2022 by Valeriano Hathaway MD at [place] [facility] [place] [facility] [place] : [id number] 10/20/2026 [id number] / [id number] / [id number] documented as of this encounter Advance Directives [...] the patient have Health Care Power of Convention Services Manager? No * Full Code Date Activated [...] Directives occurred with: Not Discussed Care Teams Concrete Placement Equipment Operator Relationship Specialty Start Date End Date Bandar Bailon DO [facility] [place] [address] PCP - General Family Medicine 10/10/20 documented as of this encounter
--- OUTSIDE RECORDS SUMMARY | 2024-05-11 18:57 | External Medical Summary | Summary of Care ---
Author Name Unknown Organization [facility] Address [address] [place] [address] Phone [phone] Care Team Providers Care Corporate Treasurer Name Role Phone Quinton Bailon DO Primary Care Provider Reason for Referral * Medication Prior Authorization - Pending Review Specialty Diagnoses / Procedures Referred By Luz castillo Referred To Contact Diagnoses B12 deficiency Quinton Bailon DO [address] [place] [address] Phone: tel: fax: Referral ID Status Reason Start Date Expiration Date V isits Requested Visits Authorized [id number] Pending Review 999 999 Reason for Visit * Reason Comments eRx-Medication Refill Encounter Details Date Type Department Care Team (Late st Contact Info) Description 05/07/2024 Refill Family Practice [facility] [address] [place] [address] Quinton Bailon DO [address] [place] [address] B12 deficiency* Allergies Active Allergy Reactions Criticality Noted Date Comments Sulfamethoxazole-Trimet hoprim Itching 07/16/2021 Pt noted total body itching within one hour of first dose. Took benedryl and inhaler and stopped med. Codeine Other (Please comment) Medium 04/23/2017 Allergic reaction Other reaction(s): UNSURE REACTION - HAPPENED A CHILD Sulfa Antibiotics High 05/22/2022 Other reaction(s): Swelling of Lip/Tongue/Throat documented as of this encounter (statuses as of 05/10/2024) Medications OXYGEN oxygen at 2 lpm via [...] O VIAL 2 mL 6 022 Active Calcium Carb-Cholecalcif richa 600-200 MG-UNIT Oral [...] each (=3 months supply). [facility] at [address] [place] [address], [facility] [address], [place] [address]. 1 g 023 Active Mupirocin 2 % External Ointment (Bactroban) Apply to affected toenail sites once daily. Cover with dry bandage. 22 g 11/14/19 23 3:52 PM EDT 023 Active levETIRAcetam 500 MG Oral [...] mouth in the morning. 90 Capsule 3 05/07/20 24 1:50 PM EST 023 Active rOPINIRole HCl 2 MG Oral [...] 024 Active Nadolol 40 MG Oral Tablet (Corgard)Indicat ions:NSVT (nonsustained ventricular tachycardia) (HCC) Take 1 Tablet by mouth in the morning. 90 Tablet 1 04/03/20 24 11:09 AM EDT 024 Active Potassium Chloride ER 10 MEQ Oral Capsule Extended ReleaseIndicatio ns:Hypokalemia TAKE ONE CAPSULE BY MOUTH IN THE MORNING AND ONE CAPSULE BEFORE BEDTIME 180 Capsule 2 Active Fluticasone-Umec lidin-Vilant 200-62.5-25 MCG/ACT Aerosol Powder [...] or Shortness of Breath. 360 mL Active BD Luer-Eli Syringe 22G X 1" 3 ML (Syringe/Needle (Disp))Indicatio ns:B12 deficiency FOR USE WITH B12 INJECTIONS 3 Each 3 Active predniSONE 20 MG Oral Tablet (Deltasone) Take 1 Tablet by mouth in the morning. 5 Tablet 02/26/20 24 11:39 AM EDT Active Additional Information Patient not taking.Reported on 05/05/2024 Famotidine 40 MG Oral Tablet (Pepcid) Take 1 tablet by mouth daily. 90 Tablet 1 03/05/20 24 3:24 PM EDT Active Diclofenac Sodium 50 MG Oral Tablet Delayed Release (Voltaren)Indica tions:Lumbar degenerative disc disease,Lumbar radiculopathy Take 1 Tablet by mouth in the morning and 1 Tablet before bedtime take With food 180 Tablet 1 04/02/20 24 3:52 PM EDT Active Hydrocortisone 5 MG Oral Tablet (Cortef) take 2 tablets in the morning , 1 tablet at lunch and 1 tablet at supper, double or triple dose during sickness 400 Tablet 1 Active Pregabalin 150 MG Oral Capsule (Lyrica)Indicati ons:Hereditary and idiopathic peripheral neuropathy Take 1 capsule by mouth in the morning and 2 capsules by mouth at bedtime 90 Capsule 2 04/16/20 24 3:06 PM EDT Active Atorvastatin Calcium 20 MG Oral Tablet (Lipitor)Indicat ions:Dyslipidemi a TAKE 1 TABLET BY MOUTH IN THE MORNING 90 Tablet Active Cyanocobalamin 1000 MCG/ML Injection Solution (Cyanocobalamin) Indications:B12 deficiency INJECT 1,000 MCG (1ML) INTRAMUSCULARLY DIRECTED FOR 30 DAYS 3 mL 1 Active Cyanocobalamin 1000 MCG/ML Injection Solution (Cyanocobalamin) INJECT 1,000 MCG (1ML) INTRAMUSCULARLY DIRECTED FOR 30 DAYS 3 mL 024 2023 Discontinued Hospital, Clinic, or Other Facility Administered Medication Ordered Dose Route Frequency Start Date End Date Status Albuterol Sulfate (Proventil) (2.5 MG/3ML) 0.083% inhalation solution 2.5 mgIndications:Mild persistent asthma without complication,SOB (shortness of breath) 2.5 mg NEBULIZER Q4H PRN 05/30/2021 Act mary jo documented as of this encounter (statuses as of 05/10/2024) Active Problems Problem Noted Date Diagnosed Date [...] Overview (03/18/2018): 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 Increased risk for Long QT Syndrome. 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 Asthma, mild persistent 04/29/2012 Overview (04/29/2012): Allergic component ROBERT (obstructive sleep apnea) 02/01/2010 Overview (03/03/2018): documented as of this encounter (statuses as of 05/10/2024) Resolved Problems Problem Noted Date Diagnosed Date [...] as of this encounter (statuses as of 05/10/2024) Immunizations Name Administration Dates Next Due COVID-19 mRNA, LNP-s, No Pre serve, 2-Dose Series (Locqus) 04/26/2021,10/20/2020,09/27/2020 COVID-19, MRNA-LNP, PF, 50 M CG/0.5 [...] Industry Job Start Date Job End Date [facility] Not on file Not on file Not on file documented as of this encounter Functional Status * Do you have serious difficulty walking or climbing stairs? (5 years old or older) Answer Date of Assessment Author Yes 03/08/2022 8:43 AM EDT Yvonne Lucero RN documented as of this encounter Miscellaneous Notes * Telephone Encounter - Quinton Bailon DO - 05/10/2024 8:01 AM EST Signed Prescriptions: Disp Refills Cyanocobalamin 1000 MCG/ML Injection Solut*3 mL 1 Sig: INJECT 1,000 MCG (1ML) INTRAMUSCULARLY DIRECTED FOR 30 DAYS Authorizing Provider: QUINTON BAILON * Telephone Encounter - Addie Maciel [facility] - 05/10/2024 5:40 AM ESTPending Prescriptions: Disp Refills Cyanocobalamin 1000 MCG/ML Injection Solut*3 mL 1 Sig: INJECT 1,000 MCG (1ML) INTRAMUSCULARLY DIRECTED FOR 30 DAYS * Telephone Encounter - Addie Maciel RPh - 05/10/2024 5:39 AM EST [facility] is currently not authorized to approve refills for the pended medication(s) per refill protocol. Please approve if appropriate. Did you pend patient's preferred pharmacy and medication before forwarding?yes [facility] [id number] Pending Prescriptions: Disp Refills Cyanocobalamin 1000 MCG/ML Injection Solut*3 mL 1 Sig: INJECT 1,000 MCG (1ML) INTRAMUSCULARLY DIRECTED FOR 30 DAYS Last Visit: 02/26/2024 (in office), 11/19/2019 (telemedicine) Next Visit: 07/20/2024 If no future appointments scheduled, and last appointment is greater than a year ago, please schedule patient for a follow-up appointment Last date the medication was ordered: 02/09/24 Is this request for a controlled substance?No Urine Drug Screen:No results found. However, due to the size of the patient record, not all encounters were searched. Please check Results Review for a complete set of results. Patient Phone Numbers Labs: Lab Results Component Value Date/Time CREAT 0.9 04/21/2024 02:02 PM CREAT 1.0 06/21/2020 04:22 PM POTASSIUM 4.0 04/21/2024 02:02 PM POTASSIUM 4.5 01/26/2020 11:51 AM TSH 1.24 01/29/2024 11:30 AM TSH 0.79 01/26/2020 11:51 AM LDL 68 05/06/2023 09:33 AM LDL 103 12/13/2017 09:59 AM LDL NOT APPLICABLE 12/13/2017 09:59 AM ALT 24 04/21/2024 02:02 PM ALT 19 01/26/2020 11:51 AM HGBA1C 5.7 (H) 05/06/2023 09:33 AM HGBA1C 5.5 07/27/2014 11:22 AM Thank You, Addie Maciel [facility] Pharmacist Telepharmacy [phone] 05/10/2024, 5:39 AM documented in this encounter Plan of Treatment Upcoming Encounters Date Type Department Care Team (Late st Contact Info) Description 05/12/2024 1:00 PM EST Telemedicine [facility] [place] [address] [place] [place] [address] 2, [facility] [address] [place] [address] 05/19/2024 8:40 AM EST Office Visit Pulmonary Medicine, [facility] [address] [facility] [place] [address] Rigoberto Lassiter MD [address] [place] [address] 05/19/2024 1:00 PM EST Telemedicine Psychology [place] [address] [place] [phone] 2, [facility] [address] [place] [place] [address] 05/26/2024 9:30 AM EST Office Visit General Surgery, [facility] [address] [facility] [place] [address] Khalif Wall MD [address] [facility] [place] [address] 05/26/2024 1:00 PM EST Telemedicine Psychology [place] [address] [place] [address] 2, [facility] [address] [place] [address] 06/02/2024 1:00 PM EST Telemedicine Psychology [place] [address] [place] [address] 2, [facility] [address] [place] [address] 06/09/2024 1:00 PM EST Telemedicine Psychology [place] [facility] [address] [place] [address] 2, [facility] [address] [place] [address] 06/30/2024 1:00 PM EST Telemedicine Psychology [place] [facility] [address] [place] [address] 2, [facility] [address] [place] [address] 07/07/2024 1:00 PM EST Telemedicine Psychology [place] [facility] [address] [place] [address] 2, [facility] [address] [place] [address] 07/14/2024 1:00 PM EST Telemedicine Psychology [place] [facility] [address] [place] [phone] 2, [facility] [address] [place] [address] 07/20/2024 3:00 PM EST Office Visit Family Practice [facility] [address] [facility] [place] [address] Torri Urbano CRNP [address] [facility] [place] [address] 09/01/2024 3:30 PM EDT Procedure Only Urology, [facility] [address] [facility] [place] [address] Enrique Wall MD [address] [place] [address] 12/14/2024 3:30 PM EDT Office Visit Cardiology, [facility] [address] [place] [address] Kassandra Sam CRNP [address] [place] [address] 01/18/2025 3:00 PM EDT Office Visit [facility] Practice [facility] [address] [facility] [place] [address] Quinton Bailon DO [address] [place] [address] Scheduled Procedures Name Priority Associated Diagnoses Date/Ti [...] this encounter Medical Devices Implanted Type Area Meat Hanger Device Identifier Shelf Expiration Date Model / Serial / Lot Graft Lyoplnt 2.5x2.5cm 1x1 - [id number] Implanted:Qty: 1 on 03/07/2022 by Valeriano Hathaway MD at [facility] [place] : [employer]AP [id number] 10/20/2026 [id number] / [id number] / [id number] Graft Lyoplnt 2.5x2.5cm 1x1 - [id number] Implanted:Qty: 1 on 03/07/2022 by Valeriano Hathaway MD at OR [facility] [place] : AESCULAP [id number] 10/20/2026 [id number] / [id number] / [id number] documented as of this encounter Visit Diagnoses Diagnosis B12 deficiency- Primary Other B-complex deficiencies documented in this encounter Advance Directives * [...] the patient have Health Care Power of Check Writing Machine Operator? No * Full Code Date [...] Directives occurred with: Not Discussed Care Teams Corporate Treasurer Relationship Specialty Start Date End Date Quinton Bailon DO [address] [place] [address] PCP - General Family Medicine 10/10/20 documented as of this encounter
== END 2024-05-11 14:09 | disposition home or self-care (01) ==
LOC: ASU 05:30 → 3E 05:30